=== PATIENT | male | born 1960 | race Caucasian/White ===

== ENCOUNTER 2020-07-10 14:12 | Outpatient (REF) | payer BC, OTHER, SELFPAY ==
[2020-07-10 14:44] LABS: MANUAL DIFF FLAG NO
[2020-07-10 15:00] LABS: Basophils Percent Auto 0.9 % (0-2); Eosinophils Absolute Auto 0.1 X10*3/uL (0.0-0.4); Eosinophils Percent Auto 2.2 % (0-4); Hematocrit 39.8 % (42-52); Hemoglobin 12.7 g/dl (14.0-18.0); Imm Gran Abs Auto 0.02 X10*3/uL (0.00-0.03); Imm Gran Pct Auto 0.4 % (0.0-0.4); Immature Retic Fraction 14.1 % (2.3-13.4); Lymphocytes Absolute Auto 1.4 X10*3/uL (1.2-4.9); Lymphocytes Percent Auto 31.4 % (20-40); Mean Corpuscular HGB Conc 31.9 g/dl (31.0-36.0); Mean Corpuscular Volume 84.7 fL (80-98); Mean Platelet Volume 9.5 fL (9.4-12.4); Monocytes Absolute Auto 0.6 X10*3/uL (0.1-1.2); Monocytes Percent Auto 12.6 % (2-11); Neutrophils Absolute Auto 2.4 X10*3/uL (2.0-8.3); Neutrophils Percent Auto 52.5 % (45-73); Platelet Count 238 X10*3/uL (160-400); Red Cell Distribution Width 14.8 % (11.0-16.0); Retic HGB Equivalent 33.1 pg (30.0-35.0); Reticulocyte Percent 1.4 % (0.5-1.8); Reticulocytes Absolute 0.065 X10*6/uL (0.026-0.095); White Blood Count 4.5 X10*3/uL (4.8-10.8)
[2020-07-10 15:22] LABS: Alanine Aminotransferase 18 U/L (0-40); Albumin Level 4.6 g/dL (3.5-5.0); Alkaline Phosphatase 58 U/L (39-117); Anion Gap 12 (12-20); Aspartate Amino Transferase 29 U/L (5-37); Bilirubin Total 0.7 mg/dL (0.0-1.0); Blood Urea Nitrogen 8 mg/dL (9-16); Calcium 9.5 mg/dL (8.4-10.2); Carbon Dioxide 27 mmol/L (22-29); Chloride 101 mmol/L (96-108); Estimated Glomerular Filt Rate > 60; Glucose Random 112 mg/dL (60-115); Iron 37 mcg/dL (45-160); Percent Iron Saturation 10 % (15-50); Potassium 4.6 mmol/l (3.3-5.1); Sodium 135 mmol/L (135-145); Total Iron Binding Capacity 381 mcg/dL (228-428); Total Protein 8.1 g/dL (6.5-8.0); Unsaturated Iron Binding 344 ug/dL
[2020-07-10 15:49] LABS: Ferritin 18 ng/mL (20-250)
[2020-07-10 15:55] LABS: Folate 6.3 ng/mL (> or = 4.0); Vitamin B12 438 pg/mL (200-900)
[2020-07-12 18:32] LABS: Haptoglobin 206 mg/dL (43-212)
== END 2020-07-10 14:13 | disposition home or self-care (01) ==
LOC: HO.BBR 14:12
PROVIDERS: PCP Internal Medicine; Visit Provider Internal Medicine
DX: E83.110 Hereditary hemochromatosis (principal)
CPT/HCPCS: 36415; 80053; 82607; 82728; 82746; 83010; 83540; 85025; 85045; 99195

== ENCOUNTER → 2020-11-22 12:44 | Outpatient (BNVA) | payer BC, OTHER, SELFPAY | PROVIDERS: PCP Internal Medicine; Visit Provider Physician Assistant ==

== ENCOUNTER 2020-11-29 11:08 | Outpatient (REF) | payer BC, OTHER, SELFPAY ==
--- NOTE | ~2020-11-29 | XR_ITS ---
EXAMINATION: XR FINGER, LEFT CLINICAL INFORMATION: Injury and pain left fourth finger COMPARISON: None TECHNIQUE: Three views of the left fourth finger. FINDINGS: Bone alignment is normal. No fracture or dislocation is seen. There may be soft tissue swelling adjacent to the PIP joint. There is arthritis at the first MCP and CHCF joints with small osteophytes. XR/XR finger LT min 2V IMPRESSION: No fracture is seen.
== END 2020-11-29 11:09 | disposition home or self-care (01) ==
LOC: HO.XRAY 11:08
PROVIDERS: PCP Nurse Practitioner Family; Visit Provider Nurse Practitioner Family
DX: S69.92XA Unspecified injury of left wrist, hand and finger(s), initial encounter (principal)
CPT/HCPCS: 73140

== ENCOUNTER 2020-12-17 14:00 | Outpatient (REF) | payer BC, OTHER, SELFPAY | END 2020-12-17 14:01 | disposition home or self-care (01) | LOC: HO.BBR 14:00 | PROVIDERS: Visit Provider Internal Medicine | DX: Z13.89 Encounter for screening for other disorder (principal) ==

== ENCOUNTER 2021-01-24 11:05 | Outpatient (REF) | payer BC, OTHER, SELFPAY ==
[2021-01-24 11:31] LABS: Hematocrit 37.9 % (42-52); Hemoglobin 12.2 g/dl (14.0-18.0); Mean Corpuscular HGB Conc 32.2 g/dl (31.0-36.0); Mean Corpuscular Hemoglobin 25.8 pg (27.0-33.0); Mean Corpuscular Volume 80.3 fL (80-98); Mean Platelet Volume 9.2 fL (9.4-12.4); Platelet Count 256 X10*3/uL (160-400); Red Blood Count 4.72 X10*6/uL (4.60-5.80); Red Cell Distribution Width 16.9 % (11.0-16.0)
[2021-01-24 12:09] LABS: Alanine Aminotransferase 30 U/L (0-40); Albumin Level 4.6 g/dL (3.5-5.0); Alkaline Phosphatase 64 U/L (39-117); Aspartate Amino Transferase 44 U/L (5-37); Bilirubin Direct 0.3 mg/dL (0.0-0.5); Bilirubin Total 0.7 mg/dL (0.0-1.0); Iron 34 mcg/dL (45-160); Percent Iron Saturation 9 % (15-50); Total Iron Binding Capacity 379 mcg/dL (228-428); Total Protein 7.8 g/dL (6.5-8.0); Unsaturated Iron Binding 345 ug/dL
[2021-01-24 13:41] LABS: Ferritin 17 ng/mL (20-250)
== END 2021-01-24 11:06 | disposition home or self-care (01) ==
LOC: HO.LABR 11:05
PROVIDERS: PCP Internal Medicine; Visit Provider Internal Medicine
DX: E83.110 Hereditary hemochromatosis (principal)
CPT/HCPCS: 36415; 80076; 82728; 83540; 85027

== ENCOUNTER 2021-02-22 11:03 | Outpatient (REF) | payer BC, OTHER, SELFPAY ==
--- NOTE | ~2021-02-22 | US_ITS ---
EXAMINATION: US VENOUS ULTRASOUND WITH DOPPLER LOWER EXTREMITY, RIGHT CLINICAL INFORMATION: Right leg swelling and edema, chronic COMPARISON: None TECHNIQUE: Ultrasound of the deep veins is performed from the hip to the calf with compression sonography and color and pulse Doppler assessment. Spectral analysis with color-flow imaging is performed. FINDINGS: There is normal venous compression and respiratory variation and augmented flow. The visualized common femoral vein, superficial femoral vein, profunda femoral vein, popliteal vein, and the trifurcation region shows no evidence of deep venous thrombosis. There is no significant popliteal fossa cyst. US/US venous duplex LE RT IMPRESSION: No DVT demonstrated in the right lower extremity.
== END 2021-02-22 11:04 | disposition home or self-care (01) ==
LOC: HO.HMGCX 11:03
PROVIDERS: PCP Internal Medicine; Visit Provider Hospitalist
DX: R60.0 Localized edema (principal)
CPT/HCPCS: 93971

== ENCOUNTER → 2021-03-12 14:36 | Outpatient (BNVA) | payer BC, OTHER, SELFPAY | PROVIDERS: PCP Internal Medicine; Visit Provider Surgery Vascular Surgery ==

== ENCOUNTER 2021-03-20 13:00 | Outpatient (REF) | payer BC, OTHER, SELFPAY ==
--- NOTE | ~2021-03-20 | US_ITS ---
EXAMINATION: RIGHT and LEFT LOWER EXTREMITY VENOUS ULTRASOUND (Reflux Exam) CLINICAL INDICATION: Right leg pain and varicose veins. COMPARISON: None. TECHNIQUE: Color flow triplex imaging and compression Doppler was performed to evaluate both the deep and the superficial systems bilaterally. To evaluate the superficial system, the examination was performed in the upright position. Color-flow Doppler ultrasound and compression ultrasound were utilized. In addition, maneuvers were utilized to demonstrate reflux. FINDINGS: 1. DEEP VENOUS ULTRASOUND OF THE RIGHT LOWER EXTREMITY: Respiratory variation, normal compression and augmented flow are noted in the right common femoral vein as well as the right popliteal vein and there is no evidence of deep venous thrombosis at these locations. There is right common femoral vein deep venous reflux measuring 0.9 seconds. There is no evidence of reflux in the deep system in either the mid femoral vein or the popliteal vein. There is no evidence of a Griffin's cyst. 2. SUPERFICIAL ULTRASOUND WITH DOPPLER OF RIGHT LOWER EXTREMITY: The right great saphenous vein at the saphenofemoral junction measures 4 mm, at the mid thigh 3 mm, [id number] 3 mm, qpcvl-jbo-ortl 2 mm, at mid calf 2 mm and at the ankle measures 3 mm. There is no reflux demonstrated in the right great saphenous vein. The right small saphenous vein measures 1-2 mm and shows no reflux. There are 3 small perforators seen in the thigh and calf measuring 2 to 3 mm that do not demonstrate reflux. 3. DEEP VENOUS ULTRASOUND OF THE LEFT LOWER EXTREMITY: Respiratory variation, normal compression and augmented flow are noted in the left common femoral vein as well as the left popliteal vein and there is no evidence of deep venous thrombosis at these locations. There is no evidence of reflux in the deep system in either the common femoral vein or the popliteal vein. . There is no evidence of a Griffin's cyst. 4. SUPERFICIAL ULTRASOUND WITH DOPPLER OF LEFT LOWER EXTREMITY: Left great saphenous vein at the saphenofemoral junction measures 5 mm, at the mid thigh 1 mm, misdq-wcx-brvf 2 mm, kuggn-dyd-wwwz 3 mm, at mid calf 3 mm and at the ankle measures 3 mm. There is no reflux demonstrated in the left great saphenous vein. The left small saphenous vein measures 1-2 mm and shows no reflux. There is a senior care manager in the mid calf that measures 2 mm and does not demonstrate reflux. The left SFA is occluded. There is reconstitution of the left popliteal artery via collateral vessel. US/US venous duplex LE BI IMPRESSION: 1. Right common femoral vein reflux measuring 0.9 seconds. No other evidence of deep venous reflux or DVT seen 2. The saphenous systems are competent bilaterally. 3. Left SFA occlusion.
== END 2021-03-20 13:01 | disposition home or self-care (01) ==
LOC: HO.US 13:00
PROVIDERS: Visit Provider Surgery Vascular Surgery
DX: I83.893 Varicose veins of bilateral lower extremities with other complications (principal); I83.11 Varicose veins of right lower extremity with inflammation
CPT/HCPCS: 93970

== ENCOUNTER → 2021-03-26 15:00 | Outpatient (BNVA) | payer BC, OTHER, SELFPAY | PROVIDERS: PCP Internal Medicine; Visit Provider Surgery Vascular Surgery ==

== ENCOUNTER 2021-04-16 14:28 | Outpatient (REF) | payer BC, OTHER, SELFPAY ==
--- NOTE | ~2021-04-16 | US_ITS ---
EXAMINATION: NONINVASIVE ASSESSMENT OF THE ARTERIES OF BOTH LOWER EXTREMITIES WITH PVR EXAM AND BILATERAL LOWER EXTREMITY DUPLEX Hardeep Villeda MD CLINICAL INFORMATION: Peripheral arterial disease TECHNIQUE: Ankle pulse volume recordings, ankle pressure measurements and ankle brachial indices were obtained of the lower extremity arterial system bilaterally in addition to duplex Doppler techniques with wave form analysis and measurement of velocities in the common femoral, profunda femoral, superficial femoral, popliteal and tibial arteries. The study was performed only at rest. COMPARISON: None FINDINGS: AT REST: Brachial artery pressures 151 Right Le. The right ankle-brachial index is: 1.21 * >0.97-1.25 = normal - no significant arterial disease * 0.75-0.96 = mild peripheral arterial disease * 0.5-0.74 = moderate peripheral arterial disease * <0.50 = severe peripheral arterial disease 2. Right ankle pressure: 127 posterior tibial, 183 dorsalis pedis 3. Right ankle PVR waveform: normal. 4. Right direct duplex Doppler findings. Velocities in cm/sec and phasicity as well as the presence of plaque are reported below. Common Femoral: 170 Profunda Femoris: 114 Proximal SFA: 1:15 Mid SFA: 121 Distal SFA: 168 Popliteal: 71 Tibial: 95 Left Le. The left ankle-brachial index is: 0.90 * >0.97-1.25 = normal - no significant arterial disease * 0.75-0.96 = mild peripheral arterial disease * 0.5-0.74 = moderate peripheral arterial disease * <0.50 = severe peripheral arterial disease 2. Left ankle pressure: 136 posterior tibial, 124 dorsalis pedis 3. Left ankle PVR waveform: Mildly blunted 4. Left direct duplex Doppler findings. Velocities in cm/sec and phasicity as well as the presence of plaque are reported below. Common Femoral: 92 Profunda Femoris: 101 Proximal SFA: Occluded Mid SFA: 67 Distal SFA: 25 Popliteal: 29 Tibial: 16 US/US arterial duplex LE BI IMPRESSION: Right leg: There is no evidence of any hemodynamically significant lower extremity arterial disease by pressure, waveform or duplex Doppler criteria at rest. Left leg: The proximal SFA is occluded with reconstitution of the SFA distally via collaterals. Monophasic flow is noted below this level.
== END 2021-04-16 14:29 | disposition home or self-care (01) ==
LOC: HO.US 14:28
PROVIDERS: Visit Provider Surgery Vascular Surgery
DX: I70.213 Atherosclerosis of native arteries of extremities with intermittent claudication, bilateral legs (principal)
CPT/HCPCS: 93925

== ENCOUNTER 2021-04-19 13:42 | Emergency (ER) | payer BC, OTHER, SELFPAY ==
--- NOTE | 2021-04-19 16:05 | ED.GENADULT ---
HPI - General Adult General Stated complaint: swollen elbow Time Seen by Provider: 04/19/21 15:32 Related Data Home Medications Medication Instructions Recorded Confirmed alclometasone 0.05 % topical cream applic TOPICAL 08/06/20 02/22/21 amlodipine 10 mg tablet 10 mg PO DAILY 08/06/20 02/22/21 calcipotriene 0.005 % topical cream 1 applic TOPICAL BID-TID 08/06/20 02/22/21 ipratropium 0.5 mg-albuterol 3 mg ml INHALATION Q6H 08/06/20 02/22/21 (2.5 mg base)/3 mL nebulization soln ipratropium 20 mcg-albuterol 100 1 puff INHALATION .4 TIMES A DAY 08/06/20 02/22/21 mcg/actuation mist for inhalation PRN g Previous Rx's Medication Instructions Recorded Symbicort 160 mcg-4.5 2 puff INHALATION BID 30 Days 08/08/20 mcg/actuation HFA aerosol inhaler #30.6 g NS sildenafil 100 mg tablet 100 mg PO DAILY PRN #5 cap 10/04/20 bisacodyl 5 mg tablet,delayed 10 mg PO ONCE 1 Days #2 tab 11/22/20 release cyclobenzaprine 10 mg tablet 10 mg PO BEDTIME PRN 30 Days #30 11/29/20 tab ibuprofen 800 mg tablet 800 mg PO Q8H PRN 15 Days #30 tab 11/29/20 pantoprazole 40 mg tablet,delayed 40 mg PO DAILY #90 tab 12/11/20 release Allergies Allergy/AdvReac Type Severity Reaction Status Date / Time nabumetone Allergy Unknown green Verified 03/26/21 15:01 stools PMFSH Past Medical History Medical History Arthritis COPD (chronic obstructive pulmonary disease) ETOH abuse Finger injury GERD (gastroesophageal reflux disease) HTN (hypertension) Polycythemia vera Smoker Surgical History History of esophagogastroduodenoscopy History of foot surgery History of lipoma History of removal of cyst History of skin graft Hx of colonoscopy Family History Family History Father Diabetes Stroke Hypertension Mother Chronic mental illness Family/Other FH: mental illness Social History Social History Household Members: Spouse Are you a primary intensive care ambulance paramedic to a significant other at home: No Do you presently have visiting nurse or other home services: No Alcohol intake: current Alcohol intake frequency: 3 or more drinks per day Alcohol type: beer Cigarette Packs Per Day: 1 Cigarettes Per Day: 20.0 Years Smoked: 40 Current occupational status: employed Current occupation: [employer] Course Course Course Narrative: 15:33pm - 60-year-old male presenting to the ED with multiple complaints Discharge Plan Discharge Prescriptions: No Action budesonide-formoterol [Symbicort] 160-4.5 mcg/actuation HFA aerosol inhaler 2 puff inhalation BID 30 Days Qty: 30.6 RF: 3 pantoprazole 40 mg tablet,delayed release (DR/EC) 40 mg PO DAILY Qty: 90 RF: 3 sildenafil 100 mg tablet 100 mg PO DAILY PRN (Reason: sexual activity) Qty: 5 RF: 1 ibuprofen 800 mg tablet 800 mg PO Q8H PRN (Reason: pain) 15 Days Qty: 30 RF: 0 cyclobenzaprine 10 mg tablet 10 mg PO BEDTIME PRN (Reason: muscle spasm) 30 Days Qty: 30 RF: 0 amlodipine 10 mg tablet 10 mg PO DAILY RF: 0 ipratropium-albuterol 0.5 mg-3 mg(2.5 mg base)/3 mL solution for nebulization inhalation Q6H RF: 0 alclometasone 0.05 % cream topical RF: 0 calcipotriene 0.005 % cream 1 applic topical BID-TID RF: 0 Combivent Respimat 20-100 mcg/actuation mist 1 puff inhalation .4 TIMES A DAY PRN (Reason: shortness of breath or wheezing) RF: 0 bisacodyl [Dulcolax (bisacodyl)] 5 mg tablet,delayed release (DR/EC) 10 mg PO ONCE 1 Days Qty: 2 RF: 0
== END 2021-04-19 17:42 | disposition left against medical advice (07) ==
PROVIDERS: Emergency Provider Emergency Medicine; PCP Internal Medicine
DX: M25.429 Effusion, unspecified elbow (principal)

== ENCOUNTER → 2021-04-23 15:27 | Outpatient (BNVA) | payer BC, OTHER, SELFPAY | PROVIDERS: PCP Internal Medicine; Visit Provider Surgery Vascular Surgery ==

== ENCOUNTER 2021-05-24 11:26 | Outpatient (REF) | payer BC, OTHER, SELFPAY ==
[2021-05-24 11:55] LABS: MANUAL DIFF FLAG NO
[2021-05-24 11:59] LABS: Basophils Percent Auto 0.8 % (0-2); Eosinophils Percent Auto 0.8 % (0-4); Hemoglobin 12.8 g/dl (14.0-18.0); Imm Gran Abs Auto 0.02 X10*3/uL (0.00-0.03); Imm Gran Pct Auto 0.4 % (0.0-0.4); Lymphocytes Absolute Auto 1.2 X10*3/uL (1.2-4.9); Mean Corpuscular HGB Conc 32.8 g/dl (31.0-36.0); Mean Corpuscular Hemoglobin 26.8 pg (27.0-33.0); Mean Corpuscular Volume 81.8 fL (80-98); Mean Platelet Volume 9.6 fL (9.4-12.4); Monocytes Absolute Auto 0.7 X10*3/uL (0.1-1.2); Monocytes Percent Auto 13.7 % (2-11); Neutrophils Absolute Auto 3.1 X10*3/uL (2.0-8.3); Neutrophils Percent Auto 60.3 % (45-73); Platelet Count 236 X10*3/uL (160-400); Red Blood Count 4.77 X10*6/uL (4.60-5.80); Red Cell Distribution Width 16.4 % (11.0-16.0); White Blood Count 5.1 X10*3/uL (4.8-10.8)
[2021-05-24 12:27] LABS: Alanine Aminotransferase 27 U/L (0-40); Albumin Level 4.7 g/dL (3.5-5.0); Alkaline Phosphatase 70 U/L (39-117); Anion Gap 13 (12-20); Aspartate Amino Transferase 43 U/L (5-37); Bilirubin Total 0.7 mg/dL (0.0-1.0); Blood Urea Nitrogen 6 mg/dL (9-16); Calcium 10.4 mg/dL (8.4-10.2); Carbon Dioxide 27 mmol/L (22-29); Chloride 104 mmol/L (96-108); Estimated Glomerular Filt Rate > 60; Glucose Fasting 111 mg/dL (60-99); Potassium 5.1 mmol/L (3.3-5.1); Sodium 139 mmol/L (135-145); Total Protein 8.5 g/dL (6.5-8.0)
[2021-05-24 12:28] LABS: Alanine Aminotransferase 27 U/L (0-40); Albumin Level 4.6 g/dL (3.5-5.0); Alkaline Phosphatase 71 U/L (39-117); Aspartate Amino Transferase 43 U/L (5-37); Bilirubin Direct 0.3 mg/dL (0.0-0.5); Bilirubin Total 0.7 mg/dL (0.0-1.0); Iron 33 mcg/dL (45-160); Percent Iron Saturation 9 % (15-50); Total Iron Binding Capacity 379 mcg/dL (228-428); Total Protein 8.4 g/dL (6.5-8.0); Unsaturated Iron Binding 346 ug/dL
[2021-05-24 12:41] LABS: Ferritin 28 ng/mL (20-250)
== END 2021-05-24 11:27 | disposition home or self-care (01) ==
LOC: HO.BBR 11:26
PROVIDERS: PCP Internal Medicine; Referring Provider Internal Medicine; Visit Provider Physician Assistant
DX: E83.110 Hereditary hemochromatosis (principal); E80.1 Porphyria cutanea tarda
CPT/HCPCS: 36415; 80053; 80076; 82248; 82728; 83540; 85025

== ENCOUNTER 2021-07-23 06:50 | Emergency (ER) | payer BC, OTHER, SELFPAY ==
--- NOTE | ~2021-07-23 | XR_ITS ---
EXAMINATION: XR CHEST CLINICAL INFORMATION: There syncope COMPARISON: Previous chest x-ray most recent September 2019 TECHNIQUE: Frontal view of the chest was obtained. FINDINGS: The cardiac and mediastinal contours are stable. The lungs are well inflated. The lungs are clear. There is no pleural effusion or pneumothorax. There are degenerative changes of the spine. XR/XR chest 1V IMPRESSION: No evidence for acute disease in the chest.
[2021-07-23 06:57] VITALS: BMI 25.8
[2021-07-23 07:00] VITALS: BP 98/63; PULSE 60; RESP 15; TEMP 36.6; O2SAT 97
[2021-07-23 07:07] VITALS: BP 116/70; PULSE 70; O2SAT 98
--- NOTE | 2021-07-23 07:28 | ECG_ITS ---
Test Reason : DIZZINESS Blood Pressure : / mmHG Vent. Rate : 059 BPM Atrial Rate : 059 BPM P-R Int : 196 ms QRS Dur : 096 ms QT Int : 426 ms P-R-T Axes : 076 084 051 degrees QTc Int : 421 ms Sinus bradycardia Otherwise normal ECG Heart rate has decreased Referred By: Juancho Gustafson Electronically Signed By:CASSIDY RASCON MD
--- NOTE | 2021-07-23 07:38 | ED.GENADULT ---
HPI - General Adult General Chief complaint: Dizziness Stated complaint: near syncope Time Seen by Provider: 07/23/21 07:28 Source: patient, family (Spouse) and EMS Mode of arrival: EMS Limitations: no limitations History of Present Illness HPI narrative: 60 years old male came in for evaluation of near-syncope this morning. This is a 60-year-old male with history of COPD and hypertension patient woke up this morning getting ready to go to work patient smoked a cigarette on empty stomach, shortly after the noticed that the patient is incoherent, diaphoretic, looked pale. Patient remembers that he got lightheaded and felt his going to pass out but he never did, patient's symptoms started about 1 hour before arrival and lasted for about 30 minutes, no chest pain, no shortness of breath. Patient had similar symptoms in the past few years ago, seek medical attention in emergency department without knowing the etiology of patient's symptoms. No chest pain, no shortness of breath, no weakness, or numbness. Related Data Home Medications Medication Instructions Recorded Confirmed alclometasone 0.05 % topical cream applic TOPICAL 08/06/20 02/22/21 calcipotriene 0.005 % topical cream 1 applic TOPICAL BID-TID 08/06/20 02/22/21 ipratropium 0.5 mg-albuterol 3 mg ml INHALATION Q6H 08/06/20 02/22/21 (2.5 mg base)/3 mL nebulization soln ipratropium 20 mcg-albuterol 100 1 puff INHALATION .4 TIMES A DAY 08/06/20 02/22/21 mcg/actuation mist for inhalation PRN g (Combivent Respimat) Previous Rx's Medication Instructions Recorded Symbicort 160 mcg-4.5 2 puff INHALATION BID 30 Days 08/08/20 mcg/actuation HFA aerosol inhaler #30.6 g NS (budesonide-formoterol) sildenafil 100 mg tablet 100 mg PO DAILY PRN #5 cap 10/04/20 bisacodyl 5 mg tablet,delayed 10 mg PO ONCE 1 Days #2 tab 11/22/20 release (Dulcolax (bisacodyl)) cyclobenzaprine 10 mg tablet 10 mg PO BEDTIME PRN 30 Days #30 11/29/20 tab ibuprofen 800 mg tablet 800 mg PO Q8H PRN 15 Days #30 tab 11/29/20 pantoprazole 40 mg tablet,delayed 40 mg PO DAILY #90 tab 12/11/20 release amlodipine 10 mg tablet 10 mg PO DAILY 90 Days #90 tab 05/07/21 Allergies Allergy/AdvReac Type Severity Reaction Status Date / Time nabumetone Allergy Unknown green Verified 04/23/21 15:23 stools Review of Systems Review of Systems: All other systems are reviewed and are negative Constitutional: Reports as per HPI and Reports no additional constitutional complaints Eyes: Reports as per HPI and Reports no additional eye complaints Reports system reviewed and no additional complaints, except as documented Cardiovascular: Reports as per HPI and Reports no additional cardiovascular complaints Respiratory: Reports as per HPI and Reports no additional respiratory complaints Gastrointestinal: Reports as per HPI and Reports no additional gastrointestinal complaints Genitourinary: Reports no additional female genitourinary complaints Musculoskeletal: Reports no additional musculoskeletal complaints Skin/Breast: Reports system reviewed and no additional complaints, except as docu Psychiatric: Reports no additional psychiatric complaints Endocrine: Reports no additional endocrine complaints Hematologic/Lymphatic: Reports no additional hematologic/lymphatic complaints Allergic/Immunologic: Reports no additional allergic/immunologic complaints Reports system reviewed and no additional complaints, except as documented and Reports Abnormal speech present PMFSH Past Medical History Medical History Arthritis COPD (chronic obstructive pulmonary disease) ETOH abuse Finger injury GERD (gastroesophageal reflux disease) HTN (hypertension) Polycythemia vera Smoker Surgical History History of esophagogastroduodenoscopy History of foot surgery History of lipoma History of removal of cyst History of skin graft Hx of colonoscopy Family History Family History Father Diabetes Stroke Hypertension Mother Chronic mental illness Family/Other FH: mental illness Social History Social History Household Members: Spouse Are you a primary home child care provider to a significant other at home: No Do you presently have visiting nurse or other home services: No Alcohol intake: current Alcohol intake frequency: 3 or more drinks per day Alcohol type: beer Patient Tobacco Use Status: Current everyday Tobacco user Cigarette Packs Per Day: 1 Cigarettes Per Day: 20.0 Years Smoked: 40 Advance Directives: Yes Advance Directives Information Provided: Yes Advance Directives on File: No Current occupational status: employed 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 Blood pressure normal. Heart rate normal. Respiration rate normal. Temperature normal. Oxygen saturation normal. Appearance: Alert. Oriented X3. No acute distress. Head: Normal external exam. Normocephalic. Atraumatic. No Lozano signs noted. No raccoon eyes noted Eyes: PERRLA. EOMI. Conjunctiva and sclera normal. Eyelids normal. ENT: TM's Normal. Pharynx normal. Uvula midline. Moist mucous membranes. No trismus noted. No drooling noted. No muffled voice noted. Neck: Normal inspection. Neck supple. FROM. No adenopathy. Thyroid Normal. No meningeal signs. No neck mass noted. CVS: Normal heart rate and rhythm. Heart sound normal. No murmurs noted. Pulses normal throughout. Respiratory: No respiratory distress. Painless inspiration. Breath sounds normal. No wheezes/rales/rhonchi noted. Chest nontender. No accessory muscle usage noted or decreased air movement noted. Abdomen: Soft and nontender. Bowel sounds normal in all 4 quadrants. No distention noted. No organomegaly noted. No visible injury noted. Back: No CVA tenderness. Full range of motion noted. Skin: Skin warm and dry. Normal skin color. Normal skin turgor. No rashes/lesions/lacerations noted. Extremities: No lower extremity edema. Extremities exhibit normal range of motion. Extremities nontender. Neuro: Oriented X 3. Cranial nerve exam: II-XII are grossly intact No motor deficit. No sensory deficit. Reflexes normal. Course Course Course Narrative: Assessment and plan. 60-year-old male came in after having episode of near syncope and diaphoresis after smoking a cigarette on empty stomach in the morning, patient declined any syncopal episode, no chest pain, alcohol level was slightly elevated to but patient declined drinking alcohol in the morning. Patient now is asymptomatic observed in the emergency department for few hours with negative troponin x2. Patient was instructed to try to stop smoking. Medical Decision Making Medical Records Medical records reviewed: Yes I reviewed the patient's medical records. Lab Data Lab results reviewed: Yes I reviewed the patient's lab results. Result diagrams: 07/23/21 07:36 07/23/21 07:36 Labs: Lab Results 07/23/21 07/23/21 07/23/21 Range/Units 07:36 07:36 07:36 WBC 5.3 (4.8-10.8) X10*3/uL RBC 4.39 L (4.60-5.80) X10*6/uL Hgb 11.9 L (14.0-18.0) g/dl Hct 36.6 L (42-52) % MCV 83.4 (80-98) fL MCH 27.1 (27.0-33.0) pg MCHC 32.5 (31.0-36.0) g/dl RDW 16.2 H (11.0-16.0) % Plt Count 229 (160-400) X10*3/uL MPV 9.7 (9.4-12.4) fL Immature Gran % (Auto) 0.2 (0.0-0.4) % Neut % (Auto) 66.2 (45-73) % Lymph % (Auto) 21.0 (20-40) % Ballard % (Auto) 8.6 (2-11) % Eos % (Auto) 3.2 (0-4) % Baso % (Auto) 0.8 (0-2) % Lymph # (Auto) 1.1 L (1.2-4.9) X10*3/uL Ballard # (Auto) 0.5 (0.1-1.2) X10*3/uL Eos # (Auto) 0.2 (0.0-0.4) X10*3/uL Baso # (Auto) 0.0 (0.0-0.2) X10*3/uL Abs Immat Gran (auto) 0.01 (0.00-0.03) X10*3/uL Absolute Neuts (auto) 3.5 (2.0-8.3) X10*3/uL Absolute Nucleated RBC 0.000 (0.0-0.012) X10*3/uL Nucleated RBC % (auto) 0.0 (0.0-0.2) /100WBC Sodium 137 (135-145) mmol/L Potassium 4.1 (3.3-5.1) mmol/L Chloride 107 (96-108) mmol/L Carbon Dioxide 18 L (22-29) mmol/L Anion Gap 16 (12-20) BUN 5 L (9-16) mg/dL Creatinine 0.74 (0.5-1.4) mg/dL Estim Creat Clear Calc 110.9 Estimated GFR > 60 Random Glucose 88 (60-115) mg/dL Calcium 9.3 D (8.4-10.2) mg/dL Total Bilirubin 0.5 (0.0-1.0) mg/dL Direct Bilirubin < 0.2 (0.0-0.5) mg/dL AST 31 (5-37) U/L ALT 14 (0-40) U/L Alkaline Phosphatase 63 (39-117) U/L Troponin I High Sens < 3.5 (<3.5-35.0) ng/L B-Natriuretic Peptide (<100) pg/mL Total Protein 7.7 (6.5-8.0) g/dL Albumin 4.1 (3.5-5.0) g/dL Lipase 37 (8-78) U/L Urine Color Urine Appearance Urine pH (5.0-8.0) Ur Specific [place] (1.005-1.025) Urine Protein (NEG-TRACE) MG/DL Urine Glucose (UA) (NEG) MG/DL Urine Ketones (NEG) MG/DL Urine Blood (NEG) Urine Nitrite (NEG) Ur Leukocyte Esterase (NEG) COVID-19 (EMILE) (Negative) COVID-19 Clin Com 07/23/21 07/23/21 07/23/21 Range/Units 07:36 07:36 08:44 WBC (4.8-10.8) X10*3/uL RBC (4.60-5.80) X10*6/uL Hgb (14.0-18.0) g/dl Hct (42-52) % MCV (80-98) fL MCH (27.0-33.0) pg MCHC (31.0-36.0) g/dl RDW (11.0-16.0) % Plt Count (160-400) X10*3/uL MPV (9.4-12.4) fL Immature Gran % (Auto) (0.0-0.4) % Neut % (Auto) (45-73) % Lymph % (Auto) (20-40) % Ballard % (Auto) (2-11) % Eos % (Auto) (0-4) % Baso % (Auto) (0-2) % Lymph # (Auto) (1.2-4.9) X10*3/uL Ballard # (Auto) (0.1-1.2) X10*3/uL Eos # (Auto) (0.0-0.4) X10*3/uL Baso # (Auto) (0.0-0.2) X10*3/uL Abs Immat Gran (auto) (0.00-0.03) X10*3/uL Absolute Neuts (auto) (2.0-8.3) X10*3/uL Absolute Nucleated RBC (0.0-0.012) X10*3/uL Nucleated RBC % (auto) (0.0-0.2) /100WBC Sodium (135-145) mmol/L Potassium (3.3-5.1) mmol/L Chloride (96-108) mmol/L Carbon Dioxide (22-29) mmol/L Anion Gap (12-20) BUN (9-16) mg/dL Creatinine (0.5-1.4) mg/dL Estim Creat Clear Calc Estimated GFR Random Glucose (60-115) mg/dL Calcium (8.4-10.2) mg/dL Total Bilirubin (0.0-1.0) mg/dL Direct Bilirubin (0.0-0.5) mg/dL AST (5-37) U/L ALT (0-40) U/L Alkaline Phosphatase (39-117) U/L Troponin I High Sens (<3.5-35.0) ng/L B-Natriuretic Peptide 36 (<100) pg/mL Total Protein (6.5-8.0) g/dL Albumin (3.5-5.0) g/dL Lipase (8-78) U/L Urine Color YELLOW Urine Appearance CLEAR Urine pH 6.0 (5.0-8.0) Ur Specific [place] <= 1.005 (1.005-1.025) Urine Protein NEG (NEG-TRACE) MG/DL Urine Glucose (UA) NEG (NEG) MG/DL Urine Ketones NEG (NEG) MG/DL Urine Blood NEG (NEG) Urine Nitrite NEG (NEG) Ur Leukocyte Esterase NEG (NEG) COVID-19 (EMILE) Negative (Negative) COVID-19 Clin Com See Note 07/23/21 Range/Units 11:11 WBC (4.8-10.8) X10*3/uL RBC (4.60-5.80) X10*6/uL Hgb (14.0-18.0) g/dl Hct (42-52) % MCV (80-98) fL MCH (27.0-33.0) pg MCHC (31.0-36.0) g/dl RDW (11.0-16.0) % Plt Count (160-400) X10*3/uL MPV (9.4-12.4) fL Immature Gran % (Auto) (0.0-0.4) % Neut % (Auto) (45-73) % Lymph % (Auto) (20-40) % Ballard % (Auto) (2-11) % Eos % (Auto) (0-4) % Baso % (Auto) (0-2) % Lymph # (Auto) (1.2-4.9) X10*3/uL [place] # (Auto) (0.1-1.2) X10*3/uL Eos # (Auto) (0.0-0.4) X10*3/uL Baso # (Auto) (0.0-0.2) X10*3/uL Abs Immat Gran (auto) (0.00-0.03) X10*3/uL Absolute Neuts (auto) (2.0-8.3) X10*3/uL Absolute Nucleated RBC (0.0-0.012) X10*3/uL Nucleated RBC % (auto) (0.0-0.2) /100WBC Sodium (135-145) mmol/L Potassium (3.3-5.1) mmol/L Chloride (96-108) mmol/L Carbon Dioxide (22-29) mmol/L Anion Gap (12-20) BUN (9-16) mg/dL Creatinine (0.5-1.4) mg/dL Estim Creat Clear Calc Estimated GFR Random Glucose (60-115) mg/dL Calcium (8.4-10.2) mg/dL Total Bilirubin (0.0-1.0) mg/dL Direct Bilirubin (0.0-0.5) mg/dL AST (5-37) U/L ALT (0-40) U/L Alkaline Phosphatase (39-117) U/L Troponin I High Sens < 3.5 (<3.5-35.0) ng/L B-Natriuretic Peptide (<100) pg/mL Total Protein (6.5-8.0) g/dL Albumin (3.5-5.0) g/dL Lipase (8-78) U/L Urine Color Urine Appearance Urine pH (5.0-8.0) Ur Specific [place] (1.005-1.025) Urine Protein (NEG-TRACE) MG/DL Urine Glucose (UA) (NEG) MG/DL Urine Ketones (NEG) MG/DL Urine Blood (NEG) Urine Nitrite (NEG) Ur Leukocyte Esterase (NEG) COVID-19 (EMILE) (Negative) COVID-19 Clin Com Imaging Data Chest x-ray: Radiologist's impression: No evidence for acute disease in the chest ECG Data Interpretation: Normal sinus rhythm at 60 beats per minutes, normal intervals, no ST-T changes. Discharge Plan Discharge Clinical Impression: Near syncope, Needs smoking cessation education Patient Disposition: Home, Self-Care Instructions: Near Syncope (ED) Prescriptions: No Action budesonide-formoterol [Symbicort] 160-4.5 mcg/actuation HFA aerosol inhaler 2 puff inhalation BID 30 Days Qty: 30.6 RF: 3 pantoprazole 40 mg tablet,delayed release (DR/EC) 40 mg PO DAILY Qty: 90 RF: 3 amlodipine 10 mg tablet 10 mg PO DAILY 90 Days Qty: 90 RF: 3 sildenafil 100 mg tablet 100 mg PO DAILY PRN (Reason: sexual activity) Qty: 5 RF: 1 ibuprofen 800 mg tablet 800 mg PO Q8H PRN (Reason: pain) 15 Days Qty: 30 RF: 0 cyclobenzaprine 10 mg tablet 10 mg PO BEDTIME PRN (Reason: muscle spasm) 30 Days Qty: 30 RF: 0 ipratropium-albuterol 0.5 mg-3 mg(2.5 mg base)/3 mL solution for nebulization inhalation Q6H RF: 0 alclometasone 0.05 % cream topical RF: 0 calcipotriene 0.005 % cream 1 applic topical BID-TID RF: 0 Combivent Respimat 20-100 mcg/actuation mist 1 puff inhalation .4 TIMES A DAY PRN (Reason: shortness of breath or wheezing) RF: 0 bisacodyl [Dulcolax (bisacodyl)] 5 mg tablet,delayed release (DR/EC) 10 mg PO ONCE 1 Days Qty: 2 RF: 0 Referrals: Goldie Watkins MD [Primary Care Provider] - 2 days Stand Alone Forms: Work/School Release
[2021-07-23] MEDS: 0.9 % Sodium Chloride 1,000 ML 999 ML IVCONT (07:40)
[2021-07-23 07:44] LABS: MANUAL DIFF FLAG NO
[2021-07-23 07:46] LABS: Basophils Percent Auto 0.8 % (0-2); Eosinophils Absolute Auto 0.2 X10*3/uL (0.0-0.4); Eosinophils Percent Auto 3.2 % (0-4); Hematocrit 36.6 % (42-52); Hemoglobin 11.9 g/dl (14.0-18.0); Imm Gran Abs Auto 0.01 X10*3/uL (0.00-0.03); Imm Gran Pct Auto 0.2 % (0.0-0.4); Lymphocytes Absolute Auto 1.1 X10*3/uL (1.2-4.9); Mean Corpuscular HGB Conc 32.5 g/dl (31.0-36.0); Mean Corpuscular Hemoglobin 27.1 pg (27.0-33.0); Mean Corpuscular Volume 83.4 fL (80-98); Mean Platelet Volume 9.7 fL (9.4-12.4); Monocytes Absolute Auto 0.5 X10*3/uL (0.1-1.2); Monocytes Percent Auto 8.6 % (2-11); Neutrophils Absolute Auto 3.5 X10*3/uL (2.0-8.3); Neutrophils Percent Auto 66.2 % (45-73); Platelet Count 229 X10*3/uL (160-400); Red Blood Count 4.39 X10*6/uL (4.60-5.80); Red Cell Distribution Width 16.2 % (11.0-16.0); White Blood Count 5.3 X10*3/uL (4.8-10.8)
[2021-07-23 08:05] LABS: COVID-19 Test Negative (Negative)
[2021-07-23 08:20] LABS: B Type Natriuretic Peptide 36 pg/mL (<100); Troponin-I High Sensitivity < 3.5 ng/L (<3.5-35.0)
[2021-07-23 08:25] LABS: Alanine Aminotransferase 14 U/L (0-40); Albumin Level 4.1 g/dL (3.5-5.0); Alkaline Phosphatase 63 U/L (39-117); Anion Gap 16 (12-20); Aspartate Amino Transferase 31 U/L (5-37); Bilirubin Direct < 0.2 mg/dL (0.0-0.5); Bilirubin Total 0.5 mg/dL (0.0-1.0); Blood Urea Nitrogen 5 mg/dL (9-16); Calcium 9.3 mg/dL (8.4-10.2); Carbon Dioxide 18 mmol/L (22-29); Chloride 107 mmol/L (96-108); Creatinine Clr Calc Pharmacy 110.9; Estimated Glomerular Filt Rate > 60; Glucose Random 88 mg/dL (60-115); Lipase 37 U/L (8-78); Potassium 4.1 mmol/L (3.3-5.1); Sodium 137 mmol/L (135-145); Total Protein 7.7 g/dL (6.5-8.0)
[2021-07-23 08:52] LABS: Appearance Urine CLEAR; Color Urine YELLOW; Glucose Urine UA NEG (NEG); Leukocyte Esterase Urine NEG (NEG); Nitrite Urine NEG (NEG); Specific Gravity - Urine <= 1.005 (1.005-1.025); Urine Blood NEG (NEG); Urine Ketones NEG (NEG); Urine Protein NEG (NEG-TRACE)
[2021-07-23 09:26] VITALS: BP 107/63; BP 117/62; BP 99/73; PULSE 64; PULSE 68; PULSE 80
[2021-07-23 11:14] VITALS: BP 105/67; PULSE 70; RESP 15; O2SAT 95
[2021-07-23 11:48] LABS: Troponin-I High Sensitivity < 3.5 ng/L (<3.5-35.0)
== END 2021-07-23 12:24 | disposition home or self-care (01) ==
PROVIDERS: Emergency Provider Emergency Medicine; PCP Internal Medicine
DX: R55 Syncope and collapse (principal); I10 Essential (primary) hypertension; F17.210 Nicotine dependence, cigarettes, uncomplicated; Z20.822 Contact with and (suspected) exposure to COVID-19
CPT/HCPCS: 36415; 71045; 80048; 80076; 81003; 83690; 83880; 84484; 85025; 87635; 93005; 96360; 99284; 99285

== ENCOUNTER 2021-08-25 11:19 | Emergency (ER) | payer BC, OTHER, SELFPAY ==
--- NOTE | ~2021-08-25 | XR_ITS ---
EXAMINATION: XR CHEST CLINICAL INFORMATION: Cough. COMPARISON: Chest 07/23/2021 TECHNIQUE: 2 views of the chest were obtained. FINDINGS: The lungs are hyperinflated but clear. The heart size and pulmonary vascularity is normal. There is mild spondylosis of dorsal spine. No lytic process. XR/XR chest 2V IMPRESSION: Hyperinflated lungs without any acute process.
[2021-08-25 11:44] VITALS: BP 123/74; PULSE 94; RESP 18; TEMP 36.9; O2SAT 95; BMI 25.1
[2021-08-25 12:51] LABS: Influenza A PCR NEGATIVE (Negative); Influenza B PCR NEGATIVE (Negative); Resp Syncy Virus RNA Qual PCR NEGATIVE (Negative); SARS COV2 PCR INHOUSE NEGATIVE (Negative)
--- NOTE | 2021-08-25 14:47 | ED_ITS ---
HPI - URI/Sore Throat General Chief Complaint: Upper Respiratory Symptoms Stated Complaint: diff breathing Time Seen by Provider: 08/25/21 14:47 Source: patient Mode of arrival: ambulatory Limitations: no limitations History of Present Illness HPI Narrative: 60-year-old male past medical history significant for hype rtension, COPD, PAD presents to the emergency department with complaints of productive cough, shortness of breath, fevers, malaise and sore throat X2 days. Patient tells me he gets bronchitis every year. He tells me that this cough is very uncomfortable, and is keeping him up at night. He also reports a temperature of a 103? F at home. He tells me he feels fatigued. And he reports burning with swallowing. Patient smokes 1 pack of cigarettes per day. He is vaccinated against COVID-19. He denies chest pain, nausea, vomiting, abdominal pain, weakness, headache, dizziness, recent sick contacts. MD elicited complaint: fever, cough and sore throat Pertinent past history: COPD and other (bronchitis ) Onset (ago): day(s) (2) Consistency: constant Severity: severe Pain scale (0-10): 10 Able to tolerate fluids by mouth: Yes Exacerbating factors: nothing Relieving factors: nothing Associated symptoms: fever, chills, myalgias, sore throat and cough Treatments prior to arrival: none Related Data Home Medications Medication Instructions Recorded Confirmed alclometasone 0.05 % topical cream applic TOPICAL 08/06/20 07/25/21 calcipotriene 0.005 % topical cream 1 applic TOPICAL BID-TID 08/06/20 07/25/21 ipratropium 0.5 mg-albuterol 3 mg ml INHALATION Q6H 08/06/20 07/25/21 (2.5 mg base)/3 mL nebulization soln ipratropium 20 mcg-albuterol 100 1 puff INHALATION .4 TIMES A DAY 08/06/20 07/25/21 mcg/actuation mist for inhalation PRN g (Combivent Respimat) Previous Rx's Medication Instructions Recorded sildenafil 100 mg tablet 100 mg PO DAILY PRN #5 cap 10/04/20 bisacodyl 5 mg tablet,delayed 10 mg PO ONCE 1 Days #2 tab 11/22/20 release (Dulcolax (bisacodyl)) ibuprofen 800 mg tablet 800 mg PO Q8H PRN 15 Days #30 tab 11/29/20 pantoprazole 40 mg tablet,delayed 40 mg PO DAILY #90 tab 12/11/20 release Symbicort 160 mcg-4.5 2 puff INHALATION BID 30 Days 08/09/21 mcg/actuation HFA aerosol inhaler #30.6 g NS (budesonide-formoterol) azithromycin 250 mg tablet See Rx Instructions PO .COMPLEX #6 08/25/21 tab benzonatate 100 mg capsule 100 mg PO BID PRN #20 cap 08/25/21 prednisone 20 mg tablet 40 mg PO DAILY 5 Days #10 tab 08/25/21 Allergies Allergy/AdvReac Type Severity Reaction Status Date / Time nabumetone Allergy Unknown green Verified 07/25/21 16:28 stools Review of Systems Review of Systems: Constitutional : No Weight loss, + Fever, + Chills, + Fatigue, No+ Malaise, + diaphoresis ENT/Mouth : No sore throat, No Rhinorrhea Eyes: No Eye Pain, No Swelling, No Redness Cardiovascular : No Chest Pain, + SOB, + Dyspnea on Exertion, No Orthopnea, No Edema, No Palpitations Respiratory : + Cough, + Sputum, No Wheezing Gastrointestinal : No Nausea, No Vomiting, No Diarrhea, No Constipation, No abdominal Pain, No Hematochezia, No Melena Genitourinary : No Dysuria, No Urinary Frequency, No Hematuria, Musculoskeletal : No joint pain, No Myalgias, No Joint Swelling Skin : No Skin Lesions, No rash Neuro : No Weakness, No Numbness, No Dizziness, No Headache All other systems reviewed and are negative [facility] Past Medical History Attestation statement: The following information was validated with the patient. Source: old records reviewed and nursing notes reviewed Medical History Arthritis COPD (chronic obstructive pulmonary disease) ETOH abuse Finger injury GERD (gastroesophageal reflux disease) HTN (hypertension) Hypotension Polycythemia vera Smoker Surgical History History of esophagogastroduodenoscopy History of foot surgery History of lipoma History of removal of cyst History of skin graft Hx of colonoscopy Family History Family History Father Diabetes Stroke Hypertension Mother Chronic mental illness Family/Other FH: mental illness Social History Social History Household Members: Spouse Housing: House Are you a primary healthcare corporate account director to a significant other at home: No Do you presently have visiting nurse or other home services: No Alcohol intake: current Alcohol intake frequency: 3 or more drinks per day Alcohol type: beer Patient Tobacco Use Status: Current everyday Tobacco user Cigarette Packs Per Day: 1 Cigarettes Per Day: 20.0 Years Smoked: 40 e-Cigarette/Vaping Use: Never Used Second Hand Smoke Exposure: No Advance Directives: Yes Advance Directives Information Provided: Yes Advance Directives on File: No service: No Current occupational status: employed 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 Appearance: Alert.? Oriented X3.? No acute distress.?+ diaphoresis Head: Normocephalic, atraumatic, no step-offs or deformities Eyes: Pupils equal, round and reactive to light.? ENT: + white patches to posterior pharynx Normal appearing tonsils. Bilateral TM and EC normal. No pain with manipulation of external ear. Neck: Normal inspection.? Neck supple.? No LAD CVS: Rapid rate normal rythem.? Pulses normal.? Respiratory: No respiratory distress.? + Diminished breath sounds + wheezing to bilateral lung de anda. Abdomen: Soft and nontender.? Skin: Skin warm and dry.? Normal skin color.? Normal skin turgor.? Extremities: No lower extremity edema.? No calf ttp. 5/5 strength to bilateral upper and lower extremities Back: No midline tenderness, no C-spine tenderness, full range of motion, no CVA tenderness bilaterally Neuro: Oriented X 3.? No motor deficit.? No sensory deficit. Course Reevaluation(s) Reevaluation #1: Flu/COVID/RSV negative, strep throat negative, labs show no leukocytosis, baseline normocephalic anemia is noted, no acute electrolyte abnormalities. Lactic acid within normal limits. Negative D-dimer. Low suspicion for PE at this time. X-ray shows hyperinflated lungs without any acute process. At this time patient's likely diagnosis is bacterial bronchitis. Patient will be discharged home on azithromycin, prednisone, and he will be advised to continue to use his inhaler/nebulizers as needed for shortness of breath. He has been given strict return precautions such as chest pain, shortness of breath, fevers, chills, nausea, vomiting, headache, dizziness. MDM - URI/Sore Throat MDM Narrative Medical decision making narrative: 1504 60-year-old male past medical history significant for hypertension, PE AD, COPD presents to the emergency department with 2 days of progressively worsening productive cough, shortness of breath, fevers T-max 100.9? F, malaise. Upon physical examination patient appears diaphoretic, vital signs significant for tachycardia, tachypnea, fever. S1-S2 appreciated free of murmurs, rapid regular rhythm is noted. Bilateral lung sounds diminished, wheezing appreciated throughout. Abdomen soft nontender nondistended. Posterior pharynx with white patches, tonsils normal size, no exudates. Bilateral tympanic membranes pearly white with normal landmarks. No lymphadenopathy. No focal neuro deficits. Plan- basic labs, cultures, lactic, bnp, mag, d-dimer, ekg, CXR, flu/covid/rsv At this time infection is suspected. Emperic antibiotics will be ordered at this time as well as fluids cultures and a lactic. Medical Records Attestation: I reviewed the patient's medical records. Lab Data Attestation: I reviewed the patient's lab results. Result diagrams: 08/25/21 15:28 08/25/21 15:28 Labs: Lab Results 08/25/21 08/25/21 08/25/21 Range/Units 11:51 15:20 15:28 WBC 9.4 (4.8-10.8) X10*3/uL RBC 4.19 L (4.60-5.80) X10*6/uL Hgb 11.6 L (14.0-18.0) g/dl Hct 35.3 L (42.0-52.0) % MCV 84.2 (80.0-98.0) fL MCH 27.7 (27.0-33.0) pg MCHC 32.9 (31.0-36.0) g/dl RDW 16.0 (11.0-16.0) % Plt Count 245 (160-400) X10*3/uL MPV 8.8 L (9.4-12.4) fL Immature Gran % (Auto) 0.4 (0.0-0.4) % Neut % (Auto) 83.4 H (45-73) % Lymph % (Auto) 6.6 L (20-40) % Brewster % (Auto) 9.2 (2-11) % Eos % (Auto) 0.1 (0-4) % Baso % (Auto) 0.3 (0-2) % Lymph # (Auto) 0.6 L (1.2-4.9) X10*3/uL Brewster # (Auto) 0.9 (0.1-1.2) X10*3/uL Eos # (Auto) 0.0 (0.0-0.4) X10*3/uL Baso # (Auto) 0.0 (0.0-0.2) X10*3/uL Abs Immat Gran (auto) 0.04 H (0.00-0.03) X10*3/uL Absolute Neuts (auto) 7.8 (2.0-8.3) x10*3/uL Absolute Nucleated RBC 0.000 (0.0-0.012) X10*3/uL Nucleated RBC % (auto) 0.0 (0.0-0.2) /100WBC D-Dimer High Sensitivty NG/ML Sodium (135-145) mmol/L Potassium (3.3-5.1) mmol/L Chloride (96-108) mmol/L Carbon Dioxide (22-29) mmol/L Anion Gap (12-20) BUN (9-16) mg/dL Creatinine (0.5-1.4) mg/dL Estim Creat Clear Calc Estimated GFR Random Glucose (60-115) mg/dL Lactic Acid (0.5-2.0) mmol/L Calcium (8.4-10.2) mg/dL Magnesium (1.6-2.6) mg/dL Total Bilirubin (0.0-1.0) mg/dL AST (5-37) U/L ALT (0-40) U/L Alkaline Phosphatase (39-117) U/L B-Natriuretic Peptide (<100) pg/mL Total Protein (6.5-8.0) g/dL Albumin (3.5-5.0) g/dL Influenza Type A (PCR) NEGATIVE (Negative) Influenza Type B (PCR) NEGATIVE (Negative) RSV RNA Qual (PCR) NEGATIVE (Negative) SARS-CoV-2 RNA (RT-PCR) NEGATIVE (Negative) S. pyogenes GrpA PARI Negative (Negative) 08/25/21 08/25/21 08/25/21 Range/Units 15:28 15:28 15:28 WBC (4.8-10.8) X10*3/uL RBC (4.60-5.80) X10*6/uL Hgb (14.0-18.0) g/dl Hct (42.0-52.0) % MCV (80.0-98.0) fL MCH (27.0-33.0) pg MCHC (31.0-36.0) g/dl RDW (11.0-16.0) % Plt Count (160-400) X10*3/uL MPV (9.4-12.4) fL Immature Gran % (Auto) (0.0-0.4) % Neut % (Auto) (45-73) % Lymph % (Auto) (20-40) % Brewster % (Auto) (2-11) % Eos % (Auto) (0-4) % Baso % (Auto) (0-2) % Lymph # (Auto) (1.2-4.9) X10*3/uL Brewster # (Auto) (0.1-1.2) X10*3/uL Eos # (Auto) (0.0-0.4) X10*3/uL Baso # (Auto) (0.0-0.2) X10*3/uL Abs Immat Gran (auto) (0.00-0.03) X10*3/uL Absolute Neuts (auto) (2.0-8.3) x10*3/uL Absolute Nucleated RBC (0.0-0.012) X10*3/uL Nucleated RBC % (auto) (0.0-0.2) /100WBC D-Dimer High Sensitivty 171 NG/ML Sodium 132 L (135-145) mmol/L Potassium 4.2 (3.3-5.1) mmol/L Chloride 97 (96-108) mmol/L Carbon Dioxide 20 L (22-29) mmol/L Anion Gap 19 (12-20) BUN 5 L (9-16) mg/dL Creatinine 0.76 (0.5-1.4) mg/dL Estim Creat Clear Calc 108.0 Estimated GFR > 60 Random Glucose 135 H D (60-115) mg/dL Lactic Acid 1.2 (0.5-2.0) mmol/L Calcium 9.2 (8.4-10.2) mg/dL Magnesium 1.7 (1.6-2.6) mg/dL Total Bilirubin 0.9 (0.0-1.0) mg/dL AST 30 (5-37) U/L ALT 22 (0-40) U/L Alkaline Phosphatase 91 D (39-117) U/L B-Natriuretic Peptide (<100) pg/mL Total Protein 7.4 (6.5-8.0) g/dL Albumin 4.2 (3.5-5.0) g/dL Influenza Type A (PCR) (Negative) Influenza Type B (PCR) (Negative) RSV RNA Qual (PCR) (Negative) SARS-CoV-2 RNA (RT-PCR) (Negative) S. pyogenes GrpA PARI (Negative) 08/25/21 Range/Units 15:29 WBC (4.8-10.8) X10*3/uL RBC (4.60-5.80) X10*6/uL Hgb (14.0-18.0) g/dl Hct (42.0-52.0) % MCV (80.0-98.0) fL MCH (27.0-33.0) pg MCHC (31.0-36.0) g/dl RDW (11.0-16.0) % Plt Count (160-400) X10*3/uL MPV (9.4-12.4) fL Immature Gran % (Auto) (0.0-0.4) % Neut % (Auto) (45-73) % Lymph % (Auto) (20-40) % Brewster % (Auto) (2-11) % Eos % (Auto) (0-4) % Baso % (Auto) (0-2) % Lymph # (Auto) (1.2-4.9) X10*3/uL Brewster # (Auto) (0.1-1.2) X10*3/uL Eos # (Auto) (0.0-0.4) X10*3/uL Baso # (Auto) (0.0-0.2) X10*3/uL Abs Immat Gran (auto) (0.00-0.03) X10*3/uL Absolute Neuts (auto) (2.0-8.3) x10*3/uL Absolute Nucleated RBC (0.0-0.012) X10*3/uL Nucleated RBC % (auto) (0.0-0.2) /100WBC D-Dimer High Sensitivty NG/ML Sodium (135-145) mmol/L Potassium (3.3-5.1) mmol/L Chloride (96-108) mmol/L Carbon Dioxide (22-29) mmol/L Anion Gap (12-20) BUN (9-16) mg/dL Creatinine (0.5-1.4) mg/dL Estim Creat Clear Calc Estimated GFR Random Glucose (60-115) mg/dL Lactic Acid (0.5-2.0) mmol/L Calcium (8.4-10.2) mg/dL Magnesium (1.6-2.6) mg/dL Total Bilirubin (0.0-1.0) mg/dL AST (5-37) U/L ALT (0-40) U/L Alkaline Phosphatase (39-117) U/L B-Natriuretic Peptide 81 (<100) pg/mL Total Protein (6.5-8.0) g/dL Albumin (3.5-5.0) g/dL Influenza Type A (PCR) (Negative) Influenza Type B (PCR) (Negative) RSV RNA Qual (PCR) (Negative) SARS-CoV-2 RNA (RT-PCR) (Negative) S. pyogenes GrpA PARI (Negative) Imaging Data Chest x-ray: Attestation: I personally reviewed and interpreted this imaging study as follows: Radiologist's impression: FINDINGS: The lungs are hyperinflated but clear. The heart size and pulmonary vascularity is normal. There is mild spondylosis of dorsal spine. No lytic process. XR/XR chest 2V IMPRESSION: Hyperinflated lungs without any acute process. ECG Data Attestation: I personally reviewed and interpreted this ECG as follows: ECG interpretation date: 08/25/21 ECG interpretation time: 15:59 Prior ECG tracings: available for review Interpretation: Ventricular rate of 101, MO normal, QRS normal QT/QTC normal. EKG shows sinus tachycardia no ST elevations or inversions no acute ischemia. No significant changes when compared to EKG from July 23, 2021. Critical Care Time Critical Care Time Critical Care Time: No Discharge Plan Discharge Clinical Impression: Upper respiratory infection, Bronchitis Patient Disposition: Home, Self-Care Instructions: Upper Respiratory Infection (ED), Acute Bronchitis (ED) Additional Instructions: Take your medications as prescribed. If you were prescribed antibiotics today, it is important that you take your medication to their entirety, do not skip any doses, do not finish them early. Try and stop smoking, smoking can make this much worse. Use your inhaler/nebulizer as needed Drink plenty of fluids Follow-up with your primary care provider this week. Return to the emergency department with new or worsening symptoms. In case of emergency call 911 Prescriptions: New prednisone 20 mg tablet 40 mg PO DAILY 5 Days Qty: 10 RF: 0 azithromycin 250 mg tablet See Rx Instructions PO .COMPLEX Qty: 6 RF: 0 benzonatate 100 mg capsule 100 mg PO BID PRN (Reason: cough) Qty: 20 RF: 0 No Action pantoprazole 40 mg tablet,delayed release (DR/EC) 40 mg PO DAILY Qty: 90 RF: 3 budesonide-formoterol [Symbicort] 160-4.5 mcg/actuation HFA aerosol inhaler 2 puff inhalation BID 30 Days Qty: 30.6 RF: 3 sildenafil 100 mg tablet 100 mg PO DAILY PRN (Reason: sexual activity) Qty: 5 RF: 1 ibuprofen 800 mg tablet 800 mg PO Q8H PRN (Reason: pain) 15 Days Qty: 30 RF: 0 ipratropium-albuterol 0.5 mg-3 mg(2.5 mg base)/3 mL solution for nebulization inhalation Q6H RF: 0 alclometasone 0.05 % cream topical RF: 0 calcipotriene 0.005 % cream 1 applic topical BID-TID RF: 0 Combivent Respimat 20-100 mcg/actuation mist 1 puff inhalation .4 TIMES A DAY PRN (Reason: shortness of breath or wheezing) RF: 0 bisacodyl [Dulcolax (bisacodyl)] 5 mg tablet,delayed release (DR/EC) 10 mg PO ONCE 1 Days Qty: 2 RF: 0 Referrals: Goldie Watkins MD [Primary Care Provider] - 2 days Stand Alone Forms: Work/School Release
[2021-08-25 15:03] VITALS: BP 141/71; PULSE 107; RESP 22; TEMP 38.3; O2SAT 95
--- NOTE | 2021-08-25 15:16 | ECG_ITS ---
Test Reason : SOB FEVER Blood Pressure : / mmHG Vent. Rate : 101 BPM Atrial Rate : 101 BPM P-R Int : 166 ms QRS Dur : 096 ms QT Int : 356 ms P-R-T Axes : 081 087 065 degrees QTc Int : 461 ms Sinus tachycardia Otherwise normal ECG When compared with ECG of 23-JUL-2021 07:42, Vent. rate has increased BY 42 BPM Referred By: Ekta Arnold Electronically Signed By:CASSIDY RASCON MD
[2021-08-25] MEDS: Acetaminophen 325 MG TABLET 650 MG PO (15:17)
[2021-08-25] MEDS: Albuterol/Iprat 2.5/0.5MG 3 ML AMPUL.NEB INHALE (15:35)
[2021-08-25 15:36] VITALS: PULSE 94; O2SAT 97
[2021-08-25 15:36] LABS: Basophils Percent Auto 0.3 % (0-2); Eosinophils Percent Auto 0.1 % (0-4); Hematocrit 35.3 % (42.0-52.0); Hemoglobin 11.6 g/dl (14.0-18.0); Imm Gran Abs Auto 0.04 X10*3/uL (0.00-0.03); Imm Gran Pct Auto 0.4 % (0.0-0.4); Lymphocytes Absolute Auto 0.6 X10*3/uL (1.2-4.9); Lymphocytes Percent Auto 6.6 % (20-40); MANUAL DIFF FLAG NO; Mean Corpuscular HGB Conc 32.9 g/dl (31.0-36.0); Mean Corpuscular Hemoglobin 27.7 pg (27.0-33.0); Mean Corpuscular Volume 84.2 fL (80.0-98.0); Mean Platelet Volume 8.8 fL (9.4-12.4); Monocytes Absolute Auto 0.9 X10*3/uL (0.1-1.2); Monocytes Percent Auto 9.2 % (2-11); Neutrophils Absolute Auto 7.8 x10*3/uL (2.0-8.3); Neutrophils Percent Auto 83.4 % (45-73); Platelet Count 245 X10*3/uL (160-400); Red Blood Count 4.19 X10*6/uL (4.60-5.80); White Blood Count 9.4 X10*3/uL (4.8-10.8)
[2021-08-25 15:45] LABS: D Dimer High Sensitivity 171 NG/ML
[2021-08-25 15:50] LABS: Lactic Acid 1.2 mmol/L (0.5-2.0)
[2021-08-25] MEDS: 0.9 % Sodium Chloride 1,000 ML 999 ML IV (15:51)
[2021-08-25] MEDS: cefTRIAXone sodium 1 GM in 0.9 % Sodium Chloride 50 ML IV (15:51)
[2021-08-25 15:53] LABS: IDNOW Serial# 9DD0AD1C; Strep A Nucleic Acid Negative (Negative)
[2021-08-25 15:57] LABS: Alanine Aminotransferase 22 U/L (0-40); Albumin Level 4.2 g/dL (3.5-5.0); Alkaline Phosphatase 91 U/L (39-117); Anion Gap 19 (12-20); Aspartate Amino Transferase 30 U/L (5-37); Bilirubin Total 0.9 mg/dL (0.0-1.0); Blood Urea Nitrogen 5 mg/dL (9-16); Calcium 9.2 mg/dL (8.4-10.2); Carbon Dioxide 20 mmol/L (22-29); Chloride 97 mmol/L (96-108); Estimated Glomerular Filt Rate > 60; Glucose Random 135 mg/dL (60-115); Magnesium 1.7 mg/dL (1.6-2.6); Potassium 4.2 mmol/L (3.3-5.1); Sodium 132 mmol/L (135-145); Total Protein 7.4 g/dL (6.5-8.0)
[2021-08-25 15:58] LABS: B Type Natriuretic Peptide 81 pg/mL (<100)
[2021-08-25 16:32] VITALS: RESP 18
== END 2021-08-25 16:48 | disposition home or self-care (01) ==
PROVIDERS: Physician Assistant; Emergency Provider Emergency Medicine; PCP Internal Medicine
DX: J06.9 Acute upper respiratory infection, unspecified (principal); J40 Bronchitis, not specified as acute or chronic; Z20.822 Contact with and (suspected) exposure to COVID-19; R06.02 Shortness of breath; R50.9 Fever, unspecified; R53.81 Other malaise; I10 Essential (primary) hypertension
CPT/HCPCS: 0241U; 36415; 71046; 80053; 83605; 83735; 83880; 85025; 85379; 87040; 87651; 93005; 94640; 96361; 96374; 99284; J0696

== ENCOUNTER 2021-09-16 08:28 | Emergency (ER) | payer BC, OTHER, SELFPAY ==
--- NOTE | 2021-09-16 | ECG_ITS ---
Test Reason : chest pain Blood Pressure : / mmHG Vent. Rate : 076 BPM Atrial Rate : 076 BPM P-R Int : 168 ms QRS Dur : 096 ms QT Int : 386 ms P-R-T Axes : 083 093 052 degrees QTc Int : 434 ms Normal sinus rhythm Rightward axis Borderline ECG When compared with ECG of 25-AUG-2021 15:59, No significant change was found Referred By: Generic ED Physician Electronically Signed By:EPIFANIO CRUZ
--- NOTE | ~2021-09-16 | MR_ITS ---
EXAMINATION: MR BRAIN WITHOUT CONTRAST CLINICAL INFORMATION: Left arm numbness. COMPARISON: None. TECHNIQUE: Multiplanar, multisequence imaging of the brain was performed without contrast. FINDINGS: No diffusion abnormalities are identified to suggest an acute or subacute infarct. The ventricles are normal in size. No mass effect or midline shift is seen. Minimal nonspecific left periventricular white matter signal changes noted with mild generalized parenchymal volume loss. No extra-axial fluid collections are seen. The brainstem and cerebellum are normal. The gradient refocused acquisition is normal. The craniovertebral junction, marrow signal, and midline structures are normal. The major intracranial flow voids at the level of the [place] of [place] are preserved. The dural venous sinus flow voids are maintained. The mastoid air cells are well aerated. There is mild patchy mucosal thickening in the paranasal sinuses. MR/MR head/brain wo con IMPRESSION: No acute intracranial process. Very mild left frontal periventricular white matter signal changes which may be due to chronic microangiopathy.
--- NOTE | ~2021-09-16 | XR_ITS ---
EXAMINATION: XR CHEST CLINICAL INFORMATION: Left arm tingling COMPARISON: Previous chest x-ray most recent July 2021 TECHNIQUE: 2 views of the chest were obtained. FINDINGS: The cardiac and mediastinal contours are stable. The lungs are well inflated. The lungs are clear. There is no pleural effusion or pneumothorax. There are degenerative changes of the spine. XR/XR chest 2V IMPRESSION: Well-inflated lungs. No evidence for acute disease in the chest.
--- NOTE | ~2021-09-16 | CT_ITS ---
EXAMINATION: CT BRAIN AND CT CERVICAL SPINE WITHOUT CONTRAST. CLINICAL INFORMATION: Left arm paresthesias. COMPARISON: CT brain 12/31/2016 TECHNIQUE: 5 mm thin axial and reformatted 2 mm thin sagittal coronal images of brain were obtained without contrast. Subsequently axial 3 mm thin and reformatted 2 mm thin sagittal coronal images of cervical spine were obtained. DLP [id number]. FINDINGS: Brain: There is no acute intra-axial, extra-axial bleed, masses or midline shift. There is no acute infarction evolution. The lateral ventricles are symmetrical in size and configuration without enlargement. There is no edema. The reyes to white matter differentiation is maintained normal. Bone windows reveal no calvarial abnormality. There is no scalp soft tissue abnormality. Bilateral paranasal sinuses and mastoid air cells are well-aerated. Cervical spine: There is mild straightening of cervical lordosis. Grade 1 retrolisthesis C5 over C6 is noted. Rest the vertebral alignment is normal. There is loss of C5-C6 and C6-C7 disc heights with mild ventral and posterior spondylosis. The craniovertebral junction and the C1-C2 alignment is normal. There is no visible acute fracture, dislocation or subluxation seen. There is mild left C2-C3, C3-C4, moderate C4-C5 facet joint arthropathy. There is mild left C5-C6, C4-C5 neural foraminal narrowing from uncovertebral and facet joint hypertrophy. The prevertebral and paravertebral soft tissues are normal. The airway is widely patent. Visualized salivary glands and thyroid lobes are symmetrical. The airway is widely patent. The lung apices are clear. CT/CT cervical spine wo con IMPRESSION: No acute intracranial process seen. There is mild straightening of cervical lordosis with grade 1 retrolisthesis C5 over C6. There are degenerative disc changes and facet joint arthropathy C5-C6 and C6-C7 disc levels. There is underlying spondylosis as well. There is no acute fracture or dislocation of cervical spine.
[2021-09-16 08:48] VITALS: BP 158/80; PULSE 86; RESP 18; TEMP 36.7; O2SAT 99; BMI 25.1
[2021-09-16 09:14] LABS: MANUAL DIFF FLAG NO
[2021-09-16 09:31] LABS: Anion Gap 11 (12-20); Blood Urea Nitrogen 4 mg/dL (9-16); Calcium 9.7 mg/dL (8.4-10.2); Carbon Dioxide 24 mmol/L (22-29); Chloride 104 mmol/L (96-108); Creatinine Clr Calc Pharmacy 109.5; Estimated Glomerular Filt Rate > 60; Glucose Random 94 mg/dL (60-115); Sodium 135 mmol/L (135-145)
[2021-09-16 09:34] LABS: Troponin-I High Sensitivity < 3.5 ng/L (<3.5-35.0)
[2021-09-16 11:21] LABS: Basophils Percent Auto 0.8 % (0-2); Eosinophils Absolute Auto 0.1 X10*3/uL (0.0-0.4); Eosinophils Percent Auto 1.8 % (0-4); Hematocrit 40.8 % (42.0-52.0); Hemoglobin 13.2 g/dl (14.0-18.0); Imm Gran Abs Auto 0.01 X10*3/uL (0.00-0.03); Imm Gran Pct Auto 0.3 % (0.0-0.4); Lymphocytes Absolute Auto 0.9 X10*3/uL (1.2-4.9); Mean Corpuscular HGB Conc 32.4 g/dl (31.0-36.0); Mean Corpuscular Hemoglobin 27.2 pg (27.0-33.0); Mean Corpuscular Volume 84.1 fL (80.0-98.0); Mean Platelet Volume 9.8 fL (9.4-12.4); Monocytes Absolute Auto 0.5 X10*3/uL (0.1-1.2); Monocytes Percent Auto 11.5 % (2-11); Neutrophils Absolute Auto 2.5 x10*3/uL (2.0-8.3); Neutrophils Percent Auto 62.6 % (45-73); Platelet Count 287 X10*3/uL (160-400); Red Blood Count 4.85 X10*6/uL (4.60-5.80); Red Cell Distribution Width 15.7 % (11.0-16.0)
--- NOTE | 2021-09-16 11:46 | ED.NEUROSD ---
HPI - Neuro Symptoms/Deficit General Chief Complaint: General Medical Stated Complaint: tingling l arm Time Seen by Provider: 09/16/21 11:14 Source: patient Mode of arrival: ambulatory Limitations: no limitations History of Present Illness Onset (ago): day(s) (yesterday) Location: left arm (bicep area to forearm in stocking glove pattern) History of same: No Severity: mild Quality: other (pins and needles) Relieving factors: none Exacerbating factors: none Context: sudden onset On Anticoagulants: No Associated symptoms: other (neck pain but cannot state when it started) Treatments Prior to Arrival: none Related Data Home Medications Medication Instructions Recorded Confirmed alclometasone 0.05 % topical cream applic TOPICAL 08/06/20 09/03/21 calcipotriene 0.005 % topical cream 1 applic TOPICAL BID-TID 08/06/20 09/03/21 ipratropium 0.5 mg-albuterol 3 mg ml INHALATION Q6H 08/06/20 09/03/21 (2.5 mg base)/3 mL nebulization soln ipratropium 20 mcg-albuterol 100 1 puff INHALATION .4 TIMES A DAY 08/06/20 09/03/21 mcg/actuation mist for inhalation PRN g (Combivent Respimat) Previous Rx's Medication Instructions Recorded sildenafil 100 mg tablet 100 mg PO DAILY PRN #5 cap 10/04/20 bisacodyl 5 mg tablet,delayed 10 mg PO ONCE 1 Days #2 tab 11/22/20 release (Dulcolax (bisacodyl)) ibuprofen 800 mg tablet 800 mg PO Q8H PRN 15 Days #30 tab 11/29/20 pantoprazole 40 mg tablet,delayed 40 mg PO DAILY #90 tab 12/11/20 release Symbicort 160 mcg-4.5 2 puff INHALATION BID 30 Days 08/09/21 mcg/actuation HFA aerosol inhaler #30.6 g NS (budesonide-formoterol) prednisone 20 mg tablet 40 mg PO DAILY 5 Days #10 tab 08/25/21 benzonatate 100 mg capsule 100 mg PO BID PRN #20 cap 08/28/21 dextromethorphan HBr 15 mg capsule 30 mg PO Q8H PRN 5 Days #35 cap 08/29/21 (Tussin Cough (DM only)) azithromycin 250 mg tablet See Rx Instructions PO .COMPLEX #6 09/03/21 tab hydrocodone 7.5 mg-acetaminophen 15 ml PO Q8H PRN 7 Days #315 ml 09/04/21 325 mg/15 mL oral solution Allergies Allergy/AdvReac Type Severity Reaction Status Date / Time nabumetone Allergy Unknown green Verified 09/03/21 11:55 stools Review of Systems Review of Systems: Constitutional : No Weight loss, No Fever, No Chills, No Fatigue, No Malaise ENT/Mouth : No sore throat, No Rhinorrhea, pos neck pain Eyes: No Eye Pain, No Swelling, No Redness Cardiovascular : No Chest Pain, No SOB, No Dyspnea on Exertion, No Orthopnea, No Edema, No Palpitations Respiratory : No Cough, No Sputum, No Wheezing Gastrointestinal : No Nausea, No Vomiting, No Diarrhea, No Constipation, No abdominal Pain, No Hematochezia, No Melena Genitourinary : No Dysuria, No Urinary Frequency, No Hematuria, Musculoskeletal : No joint pain, No Myalgias, No Joint Swelling Skin : No Skin Lesions, No rash Neuro : No Weakness, pos Numbness, No Dizziness, No Headache Psych : No Anxiety/Panic, No Depression Heme/Lymph: No Bruising, No Bleeding,No Lymphadenopathy Endocrine : No Polyuria, No Polydipsia All other systems reviewed and are negative [facility] Past Medical History Medical History Arthritis Bronchitis COPD (chronic obstructive pulmonary disease) ETOH abuse Finger injury GERD (gastroesophageal reflux disease) HTN (hypertension) Hypotension Polycythemia vera Smoker Surgical History History of esophagogastroduodenoscopy History of foot surgery History of lipoma History of removal of cyst History of skin graft Hx of colonoscopy Family History Family History Father Diabetes Stroke Hypertension Mother Chronic mental illness Family/Other FH: mental illness Social History Social History Household Members: Spouse Housing: House Are you a primary healthcare business analyst to a significant other at home: No Do you presently have visiting nurse or other home services: No Alcohol intake: current Alcohol intake frequency: 3 or more drinks per day Alcohol type: beer Patient Tobacco Use Status: Current everyday Tobacco user Cigarette Packs Per Day: 1 Cigarettes Per Day: 20.0 Years Smoked: 40 e-Cigarette/Vaping Use: Never Used Second Hand Smoke Exposure: No Advance Directives: No Advance Directives Information Provided: Yes service: No Current occupational status: employed 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 Oriented X3. No acute distress. Eyes: Pupils equal, round and reactive to light. ENT: Pharynx normal. Neck: Normal inspection. Neck supple. has some pain with ROM testing but negative spurling's test CVS: Normal heart rate and rhythm. Pulses normal. Respiratory: No respiratory distress. Breath sounds normal. Abdomen: Soft and nontender. Skin: Skin warm and dry. Normal skin color. Normal skin turgor. Extremities: No lower extremity edema. No calf ttp Neuro: Oriented X 3. No motor deficit. reports some tingling in LUE but can feel light touch distal NV intact Course Course Course Narrative: has some disc cervical ds - but CT head negative MRI ordered to r/o stroke RN notes the patient is upset and wants to leave - aware we want MRI for stroke stayed for MRI - signed out to Dr. Brenner MDM - Neuro Symptoms/Deficit MDM Narrative Medical decision making narrative: 60 yo male with hx of PAD< GERD HTN here with L arm parathesias since yesterday at this time labs, CT head/neck could be cervical radiculopathy vs stroke - dispo per results and findings. Lab Data Result diagrams: 09/16/21 09:10 09/16/21 09:10 Labs: Lab Results 09/16/21 09/16/21 09/16/21 Range/Units 09:10 09:10 09:10 WBC 4.0 L (4.8-10.8) X10*3/uL RBC 4.85 (4.60-5.80) X10*6/uL Hgb 13.2 L (14.0-18.0) g/dl Hct 40.8 L (42.0-52.0) % MCV 84.1 (80.0-98.0) fL MCH 27.2 (27.0-33.0) pg MCHC 32.4 (31.0-36.0) g/dl RDW 15.7 (11.0-16.0) % Plt Count 287 (160-400) X10*3/uL MPV 9.8 (9.4-12.4) fL Immature Gran % (Auto) 0.3 (0.0-0.4) % Neut % (Auto) 62.6 (45-73) % Lymph % (Auto) 23.0 (20-40) % Alpine % (Auto) 11.5 H (2-11) % Eos % (Auto) 1.8 (0-4) % Baso % (Auto) 0.8 (0-2) % Lymph # (Auto) 0.9 L (1.2-4.9) X10*3/uL Alpine # (Auto) 0.5 (0.1-1.2) X10*3/uL Eos # (Auto) 0.1 (0.0-0.4) X10*3/uL Baso # (Auto) 0.0 (0.0-0.2) X10*3/uL Abs Immat Gran (auto) 0.01 (0.00-0.03) X10*3/uL Absolute Neuts (auto) 2.5 (2.0-8.3) x10*3/uL Absolute Nucleated RBC 0.000 (0.0-0.012) X10*3/uL Nucleated RBC % (auto) 0.0 (0.0-0.2) /100WBC Sodium 135 (135-145) mmol/L Potassium 4.0 (3.3-5.1) mmol/L Chloride 104 (96-108) mmol/L Carbon Dioxide 24 (22-29) mmol/L Anion Gap 11 L (12-20) BUN 4 L (9-16) mg/dL Creatinine 0.75 (0.5-1.4) mg/dL Estim Creat Clear Calc 109.5 Estimated GFR > 60 Random Glucose 94 (60-115) mg/dL Calcium 9.7 (8.4-10.2) mg/dL Troponin I High Sens < 3.5 (<3.5-35.0) ng/L ECG Data Attestation: I personally reviewed and interpreted this ECG as follows: ECG interpretation date: 09/16/21 ECG interpretation time: 11:54 Interpretation: Rate: 76 Rhythm: NSR E[place]: rightwards Normal P waves. Normal MUNIRA. Normal QRS complex. ST T wave : normal no JENNIFER qTC: normal prior studies: no acute ischemia The study has been interpreted contemporaneously by me. . Discharge Plan Discharge Clinical Impression: Cervical disc disease, Arm paresthesia, left Additional Instructions: return to ED for any worsening symptoms or concerns There is mild straightening of cervical lordosis with grade 1 retrolisthesis C5 over C6. There are degenerative disc changes and facet joint arthropathy C5-C6 and C6-C7 disc levels. There is underlying spondylosis as well. There is no acute fracture or dislocation of cervical spine.? Prescriptions: No Action pantoprazole 40 mg tablet,delayed release (DR/EC) 40 mg PO DAILY Qty: 90 RF: 3 budesonide-formoterol [Symbicort] 160-4.5 mcg/actuation HFA aerosol inhaler 2 puff inhalation BID 30 Days Qty: 30.6 RF: 3 benzonatate 100 mg capsule 100 mg PO BID PRN (Reason: cough) Qty: 20 RF: 0 dextromethorphan HBr [Tussin Cough (DM only)] 15 mg capsule 30 mg PO Q8H PRN (Reason: cough) 5 Days Qty: 35 RF: 0 hydrocodone-acetaminophen 7.5-325 mg/15 mL solution 15 ml PO Q8H PRN (Reason: pain) 7 Days Qty: 315 RF: 0 prednisone 20 mg tablet 40 mg PO DAILY 5 Days Qty: 10 RF: 0 sildenafil 100 mg tablet 100 mg PO DAILY PRN (Reason: sexual activity) Qty: 5 RF: 1 ibuprofen 800 mg tablet 800 mg PO Q8H PRN (Reason: pain) 15 Days Qty: 30 RF: 0 ipratropium-albuterol 0.5 mg-3 mg(2.5 mg base)/3 mL solution for nebulization inhalation Q6H RF: 0 alclometasone 0.05 % cream topical RF: 0 calcipotriene 0.005 % cream 1 applic topical BID-TID RF: 0 Combivent Respimat 20-100 mcg/actuation mist 1 puff inhalation .4 TIMES A DAY PRN (Reason: shortness of breath or wheezing) RF: 0 azithromycin 250 mg tablet See Rx Instructions PO .COMPLEX Qty: 6 RF: 0 bisacodyl [Dulcolax (bisacodyl)] 5 mg tablet,delayed release (DR/EC) 10 mg PO ONCE 1 Days Qty: 2 RF: 0
[2021-09-16 12:00] VITALS: BP 148/76; PULSE 73; RESP 16; TEMP 36.7; O2SAT 96
[2021-09-16 13:00] VITALS: BP 154/81; PULSE 68; RESP 16; TEMP 36.7; O2SAT 96
== END 2021-09-16 17:07 | disposition left against medical advice (07) ==
PROVIDERS: Emergency Provider Emergency Medicine; PCP Internal Medicine
DX: M50.322 Other cervical disc degeneration at C5-C6 level (principal); R20.2 Paresthesia of skin; F17.200 Nicotine dependence, unspecified, uncomplicated
CPT/HCPCS: 36415; 70450; 70551; 71046; 72125; 80048; 84484; 85025; 93005; 99284; 99285

== ENCOUNTER 2022-02-07 09:51 | Outpatient (REF) | payer BC, OTHER, SELFPAY ==
[2022-02-07 10:19] LABS: MANUAL DIFF FLAG NO
[2022-02-07 10:28] LABS: Basophils Percent Auto 0.4 % (0-2); Eosinophils Percent Auto 0.2 % (0-4); Hematocrit 38.4 % (42.0-52.0); Imm Gran Abs Auto 0.03 X10*3/uL (0.00-0.03); Imm Gran Pct Auto 0.5 % (0.0-0.4); Lymphocytes Absolute Auto 0.9 X10*3/uL (1.2-4.9); Lymphocytes Percent Auto 16.8 % (20-40); Mean Corpuscular HGB Conc 33.9 g/dl (31.0-36.0); Mean Corpuscular Hemoglobin 27.9 pg (27.0-33.0); Mean Corpuscular Volume 82.4 fL (80.0-98.0); Mean Platelet Volume 9.8 fL (9.4-12.4); Monocytes Absolute Auto 0.5 X10*3/uL (0.1-1.2); Monocytes Percent Auto 9.1 % (2-11); Platelet Count 280 X10*3/uL (160-400); Red Blood Count 4.66 X10*6/uL (4.60-5.80); Red Cell Distribution Width 15.4 % (11.0-16.0); White Blood Count 5.5 X10*3/uL (4.8-10.8)
[2022-02-07 10:59] LABS: Alanine Aminotransferase 17 U/L (0-40); Albumin Level 4.3 g/dL (3.5-5.0); Alkaline Phosphatase 69 U/L (39-117); Aspartate Amino Transferase 24 U/L (5-37); Bilirubin Direct 0.2 mg/dL (0.0-0.5); Bilirubin Total 0.3 mg/dL (0.0-1.0); Iron 30 mcg/dL (45-160); Percent Iron Saturation 8 % (15-50); Total Iron Binding Capacity 373 mcg/dL (228-428); Total Protein 7.6 g/dL (6.5-8.0); Unsaturated Iron Binding 343 ug/dL
[2022-02-07 11:21] LABS: Ferritin 23 ng/mL (20-250)
[2022-02-07 11:26] LABS: Vitamin B12 330 pg/mL (200-900)
== END 2022-02-07 09:52 | disposition home or self-care (01) ==
LOC: HO.BBR 09:51
PROVIDERS: Visit Provider Internal Medicine
DX: E83.110 Hereditary hemochromatosis (principal)
CPT/HCPCS: 36415; 80076; 82607; 82728; 83540; 85025

== ENCOUNTER 2022-04-07 12:26 | Outpatient (REF) | payer BC, OTHER, SELFPAY ==
--- NOTE | ~2022-04-07 | US_ITS ---
EXAMINATION: Noninvasive assessment of the bilateral lower extremities with ARTERIAL DUPLEX and ANKLE BRACHIAL INDICES (ABIs). ? CLINICAL INFORMATION: Peripheral vascular disease ? TECHNIQUE: Duplex Doppler techniques with waveform analysis and measurement of velocities in the bilateral common femoral, profunda femoris, superficial femoral, popliteal and tibial arteries were performed. Additionally, ankle pulse volume recordings, ankle pressure measurements and ankle brachial indices were obtained of the lower extremity arterial system bilaterally. The study was performed only at rest. ? COMPARISON: 04/16/ ? FINDINGS: ? DIRECT DUPLEX DOPPLER FINDINGS: ? RIGHT LEG: Common femoral artery:?170 cm/s, phasicity: Biphasic Profunda femoris artery:??108 cm/s, phasicity: Triphasic Superficial femoral artery (proximal):?97 cm/s, phasicity: Triphasic Superficial femoral artery (mid):?95 cm/s, phasicity: Triphasic Superficial femoral artery (distal):?76.2 cm/s, phasicity: Triphasic Popliteal artery:?41.6 cm/s, phasicity: Biphasic Posterior tibial artery:?29.1 cm/s, phasicity: Monophasic Peroneal artery:?56.3 cm/s, phasicity: Triphasic ? LEFT LEG: Common femoral artery:?106 cm/s, phasicity: Triphasic Profunda femoris artery:?71.5?cm/s, phasicity: Triphasic Superficial femoral artery (proximal):?Occluded? Superficial femoral artery (mid):?Occluded Superficial femoral artery (distal):?63.6?cm/s, phasicity: Monophasic. Reconstituted flow is seen via a collateral vessel Popliteal artery:?24.3?cm/s, phasicity: Monophasic Posterior tibial artery:?13.4?cm/s, phasicity: Monophasic Peroneal artery:?32.2 cm/s, phasicity: Monophasic ANKLE-BRACHIAL INDEX: ? Right: 0.97? Left: 0.62 ? ANKLE PRESSURES: ? Right: PT 135, DP?142?? Left: PT?91, DP?79?? ? ANKLE PVR WAVEFORMS: ? Right: Abnormal Left: Abnormal? ? Left leg:???Moderately dampened ankle-brachial index with occlusion of the proximal and mid left superficial femoral artery. Reconstituted flow seen in the distal superficial femoral artery, popliteal artery and below-knee runoff vessels with dampened waveforms. This is unchanged compared to the prior exam ? ?? KAI Reference: - >1.4 = calcified vessels - 0.9 - 1.4 = normal - no significant arterial disease - 0.7 - 0.89 = mild peripheral arterial disease - 0.51 - 0.69 = moderate peripheral arterial disease - ? 0.50 = severe peripheral arterial disease - < .30 = critical arterial disease US/US arterial duplex LE BI IMPRESSION: ? Right leg:?Normal ankle brachial index. Pulse volume waveform is dampened. Dampened flow is seen within the right posterior tibial artery with normal flow and waveforms within the other arterial vessels consistent with small vessel disease ?
== END 2022-04-07 12:27 | disposition home or self-care (01) ==
LOC: HO.US 12:26
PROVIDERS: Visit Provider Surgery Vascular Surgery
DX: I73.9 Peripheral vascular disease, unspecified (principal)
CPT/HCPCS: 93925

== ENCOUNTER 2022-05-14 06:03 | Day surgery (SDC) | payer BC, OTHER, SELFPAY ==
[2022-05-14] VITALS (10 sets, daily range): BP systolic 104–127; BP diastolic 59–80; PULSE 62–82; RESP 15–18; TEMP 36.5; O2SAT 93–97; BMI 21.5
[2022-05-14 06:44] LABS: MANUAL DIFF FLAG NO
[2022-05-14 06:49] LABS: Basophils Absolute Auto 0.1 X10*3/uL (0.0-0.2); Eosinophils Absolute Auto 0.2 X10*3/uL (0.0-0.4); Eosinophils Percent Auto 2.9 % (0-4); Hematocrit 39.6 % (42.0-52.0); Hemoglobin 13.2 g/dl (14.0-18.0); Imm Gran Abs Auto 0.02 X10*3/uL (0.00-0.03); Imm Gran Pct Auto 0.3 % (0.0-0.4); Lymphocytes Absolute Auto 1.6 X10*3/uL (1.2-4.9); Lymphocytes Percent Auto 28.2 % (20-40); Mean Corpuscular HGB Conc 33.3 g/dl (31.0-36.0); Mean Corpuscular Hemoglobin 28.8 pg (27.0-33.0); Mean Corpuscular Volume 86.3 fL (80.0-98.0); Mean Platelet Volume 9.2 fL (9.4-12.4); Monocytes Absolute Auto 0.7 X10*3/uL (0.1-1.2); Monocytes Percent Auto 11.2 % (2-11); Neutrophils Absolute Auto 3.3 x10*3/uL (2.0-8.3); Neutrophils Percent Auto 56.4 % (45-73); Platelet Count 244 X10*3/uL (160-400); Red Blood Count 4.59 X10*6/uL (4.60-5.80); Red Cell Distribution Width 15.1 % (11.0-16.0); White Blood Count 5.8 X10*3/uL (4.8-10.8)
[2022-05-14 07:02] LABS: Blood Urea Nitrogen 8 mg/dL (9-16); Creatinine Clr Calc Pharmacy 102.1; Estimated Glomerular Filt Rate > 60
[2022-05-14] MEDS: iohexoL 300 MG/ML 100 ML INFUS..BTL IV (08:57)
--- NOTE | 2022-05-14 09:09 | W.PM.OPN ---
Operative Note Operative Note Date of Service: 05/14/22 Narrative: Angiogram report from [facility] Preoperative diagnosis: Atherosclerosis of left lower extremity with activity limiting claudication Postoperative diagnosis: Same Procedure: 1. Ultrasound-guided right common femoral access 2. Aortogram with left lower extremity runoff Surgeon:Jhony Orr M.D., FACS, RPVI Test Engineering Technician:None Anesthesia: Local with moderate conscious sedation. Total intraservice moderate sedation time was 31 minutes. I monitored the patient's level of consciousness and physiologic status continuously throughout the procedure. Specimens:none Drains:none Estimated blood loss: Less than 10 ml Implant: None Indications: Pleasant 62-year-old gentleman with a history activity limiting claudication. He had undergone noninvasive testing which demonstrated an KAI of 0.62 with SFA occlusion and now presents for intervention. The patient has signed the informed consent after reviewing risks, complications, benefits, and alternatives previously discussed with the patient. The patient was given the opportunity to ask any additional questions or voice any concerns. All questions were answered to the patient's satisfaction. Procedure in detail: Patient was brought to the angiography suite prior to which a time-out was called for patient identification and site verification. Bilateral groins were prepped and draped in the standard surgical fashion. Under ultrasound guidance right common femoral was punctured with micro puncture needle and wire. Subsequently a precision 4 [place] sheath was then placed. Bentson wire was advanced to the level of the aorta. 4 [place] Flush catheter was brought up and parked at the level of the renal arteries. Aortogram was then undertaken. Catheter was brought down to the level of the iliac bifurcation. Iliacs were subsequently imaged. Catheter was then brought in up and over to the left side profundus femoris. Runoff study was then undertaken. Multiple orthogonal views were undertaken. We were unable to cannulate the SFA. Catheter wire sheath was then removed. Direct pressure was held for 10 minutes. Patient tolerated the procedure well. Returned to recovery with stable vitals. Interpretation of films: 1. Ultrasound demonstrates appropriate femoral puncture. Image of which was saved. 2. Aortogram demonstrates appropriate caliber aorta. Minimal disease. Appropriate take-off of the renals. 3. Iliac images demonstrate no significant disease 4. Left Leg Common femoral artery: No significant disease Profundus Femoris: No significant disease Superficial femoral artery: Total occlusion with reconstitution at above knee distal SFA Popliteal artery (p1,p2,p3): Normal Anterior tibial artery: Patent Peroneal artery: Minimal disease but was diminutive Posterior tibial artery: Appears occluded Dorsalis pedis/plantar arch: Incomplete Conclusion: 1. Successful diagnostic angiogram. Should it become clinically warranted may require femoral to above knee popliteal bypass 2. Anticoagulation status: No change This note is constructed using voice recognition software. While every effort has been made to ensure accuracy, pigment weigher errors may have been included. Thank you for allowing me to participate in the care of your patient. Yours sincerely, Jhony Orr MD, FACS, R.P.V.I.
[2022-05-14] MEDS: oxyCODONE HCl Immed Release 5 MG TABLET PO (09:40)
== END 2022-05-14 13:00 | disposition home or self-care (01) ==
PROVIDERS: Visit Provider Surgery Vascular Surgery
DX: I70.212 Atherosclerosis of native arteries of extremities with intermittent claudication, left leg (principal); M79.662 Pain in left lower leg; M19.90 Unspecified osteoarthritis, unspecified site; I10 Essential (primary) hypertension; I95.9 Hypotension, unspecified; D45 Polycythemia vera; R42 Dizziness and giddiness; J44.9 Chronic obstructive pulmonary disease, unspecified; Z88.8 Allergy status to other drugs, medicaments and biological substances; F10.10 Alcohol abuse, uncomplicated; F17.210 Nicotine dependence, cigarettes, uncomplicated
CPT/HCPCS: 36247; 36415; 75630; 76937; 82565; 84520; 85025; 99152; 99153; C1769; C1887; J2250; J3010; Q9967

== ENCOUNTER → 2022-06-03 09:42 | Outpatient (BNVA) | payer BC, OTHER, SELFPAY | PROVIDERS: PCP Internal Medicine; Referring Provider Internal Medicine; Visit Provider Internal Medicine | DX: Z01.810 Encounter for preprocedural cardiovascular examination (principal); I73.9 Peripheral vascular disease, unspecified; I10 Essential (primary) hypertension; F17.200 Nicotine dependence, unspecified, uncomplicated | CPT/HCPCS: 93005 ==

== ENCOUNTER → 2022-06-09 14:51 | Outpatient (REF) | payer BC, OTHER, SELFPAY ==
--- NOTE | 2022-06-09 14:53 | CA_ITS ---
Transthoracic Echocardiogram Patient (Last, First, Middle): Sid Landeros, Gender: Male Date of : 1960 Age: 61 Procedure Date: 06/09/2022 Procedure Type: Transthoracic Echocardiogram Location: OP Height: 177.8 cm Weight: 72.58 kg BSA: 1.90 m2 Heart Rate: bpm BP: 118 / 56 mmHg New Business Clerk: Referring MD: Carlos A Fletcher MD [employer] Clerk: Hilario Fritz MD Symptoms: Z01.810 - Encounter for preprocedural cardiovascular examination Study Quality: Fair ECG Rhythm: Sinus Conclusions: - 1. Normal LV systolic function with grade 1 diastolic dysfunction 2. Normal cardiac valvular Doppler 3. Normal RV systolic pressure 4. No pericardial effusion Findings Left Ventricle Normal left ventricular size, thickness, and systolic function. The visually estimated ejection fraction is between 60-65%. Spectral Doppler is indicative of an impaired relaxation filling pattern. E/E prime ratio is <8, consistent with normal filling pressures. Evidence suggests grade I (mild) diastolic dysfunction. Right Ventricle Normal right ventricular cavity size and systolic function. Atria The left atrium is normal in size. There is lipomatous hypertrophy of the interatrial septum. There is no evidence of interatrial shunt. The right atrium is normal in size. Aortic Valve Normal aortic valve structure and function. There is no aortic valve stenosis. There is no aortic valve regurgitation. Mitral Valve Normal mitral valve structure and function. There is trace mitral valve regurgitation. There is no mitral valve stenosis. Pulmonic Valve The pulmonic valve was not well visualized. Tricuspid Valve Likely normal tricuspid valve structure and function. There is trace tricuspid valve regurgitation. The right ventricular systolic pressure is normal. The right ventricular systolic pressure is 19 mmHg. Normal right atrial pressure. There is no evidence of pulmonary hypertension. Great Vessels All visible segments of the aorta are normal in size. The pulmonary artery was not well visualized. Venous The inferior vena cava is normal in size and collapses greater than 50% with inspiration. Pericardium/Pleural There is no evidence of pericardial effusion. Prior Study Comparison No prior study available for comparison. Measurements 2D Linear Measurements IVSd: 1.28 0.6-0.9/0.6-1.0 cm LVIDd: 4.08 3.9-5.3/4.2-5.9 cm LVIDd Index: 2.15 2.4-3.2/2.2-3.1 cm/m2 LVIDs: 2.68 2.0-3.6 cm LVPWd: 1.27 0.7-1.1 cm Ao Root: 3.30 2.1-3.5 cm LA Diam: 3.20 2.7-3.8/3.0-4.0 cm LAIDs Index: 1.68 1.5-2.3 cm/m2 LV Mass: 232.46 67-162/88-224 g LV Mass Index: 122.35 43-95/49-115 g/m2 LVOT Diam: 2.20 3.0+(-)1.3 cm Mitral Valve MV Pk E: 0.69 MV PK A: 0.98 MV Decel Time: 211.00 E/A: 0.70 E'Lateral: 11.20 E'Medial: 10.70 E/E' Med: 6.50 E/E' Lat: 6.20 PHT: 62.00 MVA PHT: 3.55 Decel Woods: 3.29 Aortic Valve AoV Pk Charlie: 1.65 AoV Mn Charlie: 1.03 AoV VTI: 0.33 AoV Pk Grad: 11.00 Aov Mn Grad: 5.00 DRAKE Cont.VTI: 2.35 LVOT LVOT Pk Charlie: 0.96 LVOT Mn Charlie: 0.57 LVOT VTI: 0.20 LVOT Pk Grad: 4.00 LVOT Mn Grad: 2.00 LVOT Diam: 2.20 LVOT Area: 3.80 Diastolic Function MV Pk E: 0.69 MV Pk A: 0.98 E/A: 0.70 E'Medial: 10.70 E/E' Med: 6.50 E' Laterial: 11.20 E/E' Lat: 6.20 Tricuspid Valve TR Pk Charlie: 2.01 TR Pk Grad: 16.00 RA Press: 3.00 RVSP: 19.00 Great Vessels Aorta Ao Root-2D: 3.30 2.0-3.7 cm Ao Asc: 2.90 2.1-3.4 cm Pulmonary Valve PV Pk Charlie: 1.37 Peak PV Grad: 8.00 Updated in Other Vendor System with Status of Final Hilario Fritz MD electronically signed on 06/09/2022 4:54:43 PM with status of Final
== END ==
LOC: HO.CARD 14:51
PROVIDERS: PCP Internal Medicine; Visit Provider Internal Medicine
DX: Z01.810 Encounter for preprocedural cardiovascular examination (principal)
CPT/HCPCS: 93306

== ENCOUNTER → 2022-06-10 09:48 | Outpatient (REF) | payer BC, OTHER, SELFPAY ==
--- NOTE | ~2022-06-10 | NM_ITS ---
Lexiscan Myocardial perfusion study Indication: Preoperative cardiovascular evaluation Technique: The patient was brought in for a Lexiscan perfusion study on 06/10/2022 and was injected 0.4 mg of Lexiscan intravenously. Within a minute of this injection 25 mCi of sestamibi was given intravenously. Images were obtained using the SPECT gamma camera interlaced with the gating device. Images were obtained in supine position. Resting perfusion study was performed on 06/11/2022. Patient was administered 25 mCi of sestamibi intravenously at rest. Images were then obtained in supine position. Total DLP 78mGy-cm. Images were processed with the software and compared side to side in short axis, horizontal long axis and vertical long axis views. Findings: Raw acquisition reviewed. The stress perfusion study showed mildly diminished tracer uptake in the distal part of anterior wall and adjacent apex. With CT attenuation correction, there is improvement in this area suggestive of soft tissue attenuation artifact. The gated study shows low normal LV systolic function with calculated LVEF of 54%. LV cavity is normal in size. The gated study shows normal wall thickening and contraction of segments. Resting study shows no significant perfusion abnormality. Gating at rest reveals normal wall motion with ejection fraction at 53%. The findings are consistent with mild reversible distal anterior/apical defect but improving with CT attenuation correction. NM/NM cardiolite stress test Impression: 1. Myocardial perfusion imaging study shows mild reversible distal anterior/apical defect. Improvement with CT attenuation correction as well as normal contractility suggestive of soft tissue attenuation artifact. Less likely to be from mild ischemia. 2. Gated LVEF is 54% during stress and 53% during rest. Correlate with echocardiogram. 3. Transient ischemic dilatation not present. EKG component of the test reported separately.
--- NOTE | 2022-06-10 09:50 | CA_ITS ---
Acquisition Time: 2022-06-10 09:51:23 Total Exercise Time: 00:02:00 Test Indications: SOB Medications: Protocol: LEXISCAN Max HR: 093 BPM 58% of Pred: 160 BPM Max BP: 146/068 mmHG Max Work Load: 1.0 METS Pharmacological nuclear stess test with Lexiscan injection, while sitting and kicking his legs, with report of sob and lightheadedness, without arrythmia, with drop in BP to low of 108/74 from baseline 146/68, without EKG changes meeting criteria for ischemia. In recovery he was treated with Aminophylline 75mg IVP to reverse Lexiscan with resolution of symptoms. Nuclear images pending. Test reviewed with Dr Fritz Referred By: Carlos A Fletcher Overread By: KYLIE COLLIER
== END ==
LOC: HO.CARD 09:48
PROVIDERS: PCP Internal Medicine; Visit Provider Internal Medicine
DX: Z01.810 Encounter for preprocedural cardiovascular examination (principal)
CPT/HCPCS: 78452; 93017; A9500; J0280; J2785

== ENCOUNTER 2022-06-12 | Outpatient (REF) | payer BC, OTHER, SELFPAY | END 2022-06-12 00:01 | LOC: HO.RESP | PROVIDERS: PCP Internal Medicine; Visit Provider Internal Medicine | DX: J41.0 Simple chronic bronchitis (principal); F17.210 Nicotine dependence, cigarettes, uncomplicated; Z79.899 Other long term (current) drug therapy | CPT/HCPCS: 94010 ==

== ENCOUNTER 2022-06-16 06:14 | Inpatient (IN) | payer BC, OTHER, SELFPAY ==
[2022-06-09 11:57] VITALS: BP 160/78; PULSE 76; RESP 16; O2SAT 96; BMI 22.7
--- NOTE | 2022-06-09 12:18 | P.CONAN_ITS ---
Documented by User: Suni Bermudez NP 06/13/22 10:52 HPI - Anesthesia Eval Consult details Narrative: 61yo M for Left Femoral Popliteal Bypass Graft Cardiac clearance Echocardiogram with normal LVEF, 60-65%, mild diastolic dysfunction but otherwise unremarkable. In the myocardial perfusion imaging study, mild reversible distal anterior/apical defect.? However, there was improvement with CT attenuation correction and there was also normal thickening and hence thought to be rather artifactual.? However, cannot definitively exclude mild LAD territory ischemia. Clinically, he does not have any angina either. Overall, may proceed with vascular surgery.? Intermediate cardiac risk. Pulmo clearance ? ? HE DOES HAVE SEVERE COPD BUT IT HAS REMAINED VERY STABLE AND CONTROLLED. ? ? HE DOES NOT HAVE ANY ACUTE CONTRAINDICATION TO THE PLANNED SURGERY. ? ? HOWEVER HE IS MODERATELY HIGH RISK FOR ANY PROLONGED GENERAL ANESTHESIA OR MAJOR SURGERY, ?? POSTOPERATIVELY HE SHOULD BE WATCH FOR ANY RESPIRATORY DISTRESS. ?? I RECOMMEND THAT HE SHOULD BE TREATED WITH DUONEB UPDRAFTS Q 6 [address] WHILE AWAKE.? AND IN PLACE OF SYMBICORT HE CAN BE TREATED WITH ?? BREO -200-25 1 INHALATION DAILY, TO RESUME USING SYMBICORT WHEN HE GOES BACK HOME. ETOH: 6-8 beers daily, never experienced withdrawal but has never attempted to stop. Discussed risk r/t ETOH complications post op and instructed to decrease consumption by 1 beer daily leading up to surgery Polycythemia vera - last therapeutic phleb about 1 year ago per patient PMFSH Active Problems Active Problems: All Active Problems (Updated 06/09/22 @ 12:14 by Lily Membreno RN) Thigh abscess (Acute) Annual physical exam (Acute) COPD (chronic obstructive pulmonary disease) (Acute) Tubular adenoma of colon (Acute) Erectile dysfunction (Acute) Polycythemia vera (Acute) HTN (hypertension) (Acute) Encounter for colonoscopy due to history of adenomatous colonic polyps (Acute) Leg edema, right (Acute) Varicose veins of right lower extremity with inflammation (Acute) PAD (peripheral artery disease) (Acute) Tingling of left upper extremity (Acute) Screening for hyperlipidemia (Acute) Preoperative cardiovascular examination (Acute) Smoker (Acute) Dizziness (Acute) Bronchitis (Acute) GERD (gastroesophageal reflux disease) (Acute) Finger injury (Acute) Past Medical History Medical History Arthritis Bronchitis COPD (chronic obstructive pulmonary disease) Dizziness ETOH abuse Finger injury GERD (gastroesophageal reflux disease) HTN (hypertension) Hypotension Murmur Polycythemia vera S/P angiogram of extremity Smoker SOB (shortness of breath) Family History Family History Father Diabetes Stroke Hypertension Mother Chronic mental illness Family/Other FH: mental illness Family history of problems with anesthesia: No Surgical History Surgical History History of esophagogastroduodenoscopy History of foot surgery History of lipoma History of removal of cyst History of skin graft Hx of colonoscopy History of Problems with Anesthesia: No Social History Social History Household Members: Spouse Housing: House Are you a primary transitions rn care coordinator to a significant other at home: No Do you presently have visiting nurse or other home services: No Alcohol intake: current Alcohol intake frequency: a few times a month Alcohol type: beer Patient Tobacco Use Status: Current everyday Tobacco user Tobacco use type: Cigarette Cigarette Packs Per Day: 0.5 Cigarettes Per Day: 12 Years Smoked: 40 Smoked in Last 30 Days: Yes e-Cigarette/Vaping Use: Never Used Patient Interested in Nicotine Replacement: Yes Patient Given Instructions on How to Stop Smoking: Yes Date Education Initiated: 06/09/22 Second Hand Smoke Exposure: Yes ( smokes also) Use of substances other than those prescribed or required for medical reasons: No Have you been hit, kicked, punched, or otherwise hurt by someone within the past year? 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 SOB at baseline r/t COPD. Activity very limited d/t pain of claudication Meds Allergies Allergy/AdvReac Type Severity Reaction Status Date / Time nabumetone AdvReac Unknown green Verified 06/12/22 16:35 stools Home Medications Medication Instructions Recorded Confirmed Last Taken Type budesonide-formoterol HFA 160 2 puff inhalation DAILY 06/09/22 06/09/22 Unknown History mcg-4.5 mcg/actuation aerosol inhaler (Symbicort) Exam Exam Date and Time: June 09, 2022 1218 Height,Weight and Vital Signs: Height 5 ft 10 in Weight 72 kg Last Vital Signs Pulse 76 06/09/22 11:57 Resp 16 06/09/22 11:57 BP 160/78 H 06/09/22 11:57 Pulse Ox 96 06/09/22 11:57 O2 Del Method 06/09/22 11:57 Pertinent Lab Results Pertinent Lab Results: Lab Results 06/09/22 06/09/22 06/09/22 Range/Units 13:05 13:05 13:05 WBC 5.2 (4.8-10.8) X10*3/uL RBC 4.77 (4.60-5.80) X10*6/uL Hgb 14.0 (14.0-18.0) g/dl Hct 41.2 L (42.0-52.0) % MCV 86.4 (80.0-98.0) fL MCH 29.4 (27.0-33.0) pg MCHC 34.0 (31.0-36.0) g/dl RDW 14.0 (11.0-16.0) % Plt Count 233 (160-400) X10*3/uL MPV 9.1 L (9.4-12.4) fL Absolute Nucleated RBC 0.000 (0.0-0.012) X10*3/uL Nucleated RBC % (auto) 0.0 (0.0-0.2) /100WBC PT 11.2 (10.0-13.1) SEC INR 1.0 (0.9-1.1) APTT 30.1 (26.0-36.4) SEC Sodium 137 (135-145) mmol/L Potassium 5.4 H D (3.3-5.1) mmol/L Chloride 101 (96-108) mmol/L Carbon Dioxide 27 (22-29) mmol/L Anion Gap 14 (12-20) BUN 7 L (9-16) mg/dL Creatinine 0.75 (0.5-1.4) mg/dL Estim Creat Clear Calc 106.6 Estimated GFR > 60 Random Glucose 99 (60-115) mg/dL Calcium 9.9 (8.4-10.2) mg/dL Blood Type Antibody Screen 06/09/22 Range/Units 13:05 WBC (4.8-10.8) X10*3/uL RBC (4.60-5.80) X10*6/uL Hgb (14.0-18.0) g/dl Hct (42.0-52.0) % MCV (80.0-98.0) fL MCH (27.0-33.0) pg MCHC (31.0-36.0) g/dl RDW (11.0-16.0) % Plt Count (160-400) X10*3/uL MPV (9.4-12.4) fL Absolute Nucleated RBC (0.0-0.012) X10*3/uL Nucleated RBC % (auto) (0.0-0.2) /100WBC PT (10.0-13.1) SEC INR (0.9-1.1) APTT (26.0-36.4) SEC Sodium (135-145) mmol/L Potassium (3.3-5.1) mmol/L Chloride (96-108) mmol/L Carbon Dioxide (22-29) mmol/L Anion Gap (12-20) BUN (9-16) mg/dL Creatinine (0.5-1.4) mg/dL Estim Creat Clear Calc Estimated GFR Random Glucose (60-115) mg/dL Calcium (8.4-10.2) mg/dL Blood Type A Positive Antibody Screen NEGATIVE Narrative Narrative: EKG 05/2022 sinus rhythm at 77/Min; rightward axis; incomplete right bundle-branch block, normal ME and corrected QT. Echo 05/2022 Conclusions: - 1.? Normal LV systolic function with grade 1 diastolic ? dysfunction? 2.? Normal cardiac valvular Doppler? 3.? Normal RV systolic pressure? 4.? No pericardial effusion? ?? NM cardiolite stress test 05/2022 Impression: ? 1.? Myocardial perfusion imaging study shows mild reversible distal anterior/apical defect. Improvement with CT attenuation correction as well as normal contractility suggestive of soft tissue attenuation artifact. Less likely to be from mild ischemia. 2.? Gated LVEF is 54% during stress and 53% during rest. Correlate with echocardiogram. 3. Transient ischemic dilatation not present. ? EKG component of the test reported separately. Airway Mallampati Class: II TM Dist: >3cm Neck ROM: Full Loose/Missing/Broken Teeth: Yes (Missing molars) Heart: RRR +M Lungs: Coarse throughout, but clears with deep cough Assessment and Plan Assessment Anesthesia Assessment: Anesthesia Plan Discussed (Discussed increased risk r/t smoking and ETOH. Also unknown risk r/t pending cardiac studies.), Smoking Cess. Discussed and PAT Visit Final Anesthetic Review Family History of Problems with Anesthesia: No History of Problems with Anesthesia: No Documented by User: Ruy Saravia MD 06/16/22 13:51 [facility] Past Medical History Medical History Arthritis Bronchitis COPD (chronic obstructive pulmonary disease) Dizziness ETOH abuse Finger injury GERD (gastroesophageal reflux disease) HTN (hypertension) Hypotension Murmur Polycythemia vera S/P angiogram of extremity Smoker SOB (shortness of breath) Functional capacity: independent ambulation Family History Family History Father Diabetes Stroke Hypertension Mother Chronic mental illness Family/Other FH: mental illness Surgical History Surgical History History of esophagogastroduodenoscopy History of foot surgery History of lipoma History of removal of cyst History of skin graft Hx of colonoscopy Social History Social History Household Members: Spouse Housing: House Are you a primary transitions rn care coordinator to a significant other at home: No Do you presently have visiting nurse or other home services: No Alcohol intake: current Alcohol intake frequency: a few times a month Alcohol type: beer Patient Tobacco Use Status: Current everyday Tobacco user Tobacco use type: Cigarette Cigarette Packs Per Day: 0.5 Cigarettes Per Day: 12 Years Smoked: 40 Smoked in Last 30 Days: Yes e-Cigarette/Vaping Use: Never Used Patient Interested in Nicotine Replacement: Yes Patient Given Instructions on How to Stop Smoking: Yes Date Education Initiated: 06/09/22 Second Hand Smoke Exposure: Yes ( smokes also) Use of substances other than those prescribed or required for medical reasons: No Have you been hit, kicked, punched, or otherwise hurt by someone within the past year? 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 occupational exposures/hazards: No Cognitive needs: No Hearing needs: No Vision needs: Yes Meds Allergies Allergy/AdvReac Type Severity Reaction Status Date / Time nabumetone AdvReac Unknown green Verified 06/12/22 16:35 stools Home Medications Medication Instructions Recorded Confirmed Last Taken Type budesonide-formoterol HFA 160 2 puff inhalation DAILY 06/09/22 06/09/22 Unknown History mcg-4.5 mcg/actuation aerosol inhaler (Symbicort) Exam Airway Loose/Missing/Broken Teeth: Yes (Missing molars, fillings ) Assessment and Plan Assessment Anesthesia Assessment: Anesthesia Plan Discussed (Discussed increased risk r/t smoking and ETOH. ) and Chart Reviewed Final Anesthetic Review NPO: Yes ASA Class: III Final Preanesthetic Review: Meds/Allgs Chart Reviewed, Consent Obtained/Reviewed and Anes Risks/Benef Reviewed Patient Risk: Intermediate Procedure Risk: Intermediate Anesthetic Plan Anesthetic Plan: GA Disposition: Inp. Admit - ICU
[2022-06-09 13:23] LABS: Hematocrit 41.2 % (42.0-52.0); Mean Corpuscular Hemoglobin 29.4 pg (27.0-33.0); Mean Corpuscular Volume 86.4 fL (80.0-98.0); Mean Platelet Volume 9.1 fL (9.4-12.4); Platelet Count 233 X10*3/uL (160-400); Red Blood Count 4.77 X10*6/uL (4.60-5.80); White Blood Count 5.2 X10*3/uL (4.8-10.8)
[2022-06-09 13:40] LABS: Prothrombin Time 11.2 SEC (10.0-13.1)
[2022-06-09 13:42] LABS: Partial Thromboplastin Time 30.1 SEC (26.0-36.4)
[2022-06-09 13:49] LABS: Anion Gap 14 (12-20); Blood Urea Nitrogen 7 mg/dL (9-16); Calcium 9.9 mg/dL (8.4-10.2); Carbon Dioxide 27 mmol/L (22-29); Chloride 101 mmol/L (96-108); Creatinine Clr Calc Pharmacy 106.6; Estimated Glomerular Filt Rate > 60; Glucose Random 99 mg/dL (60-115); Potassium 5.4 mmol/L (3.3-5.1); Sodium 137 mmol/L (135-145)
[2022-06-16] VITALS (29 sets, daily range): BP systolic 108–148; BP diastolic 42–80; PULSE 65–92; RESP 12–19; TEMP 36.2–36.9; O2SAT 95–100; BMI 22.9
[2022-06-16 06:36] LABS: COVID-19 Test Negative (Negative)
[2022-06-16] MEDS: Lactated Ringers 1,000 ML 100 ML IVCONT (06:48)
[2022-06-16 06:51] LABS: Anion Gap 15 (12-20); Blood Urea Nitrogen 7 mg/dL (9-16); Carbon Dioxide 25 mmol/L (22-29); Chloride 101 mmol/L (96-108); Creatinine Clr Calc Pharmacy 106.1; Estimated Glomerular Filt Rate > 60; Glucose Random 107 mg/dL (60-115); Potassium 4.4 mmol/L (3.3-5.1); Sodium 137 mmol/L (135-145)
[2022-06-16] MEDS: Albuterol/Iprat 2.5/0.5MG 3 ML AMPUL.NEB INHALE ×2 (07:06→12:23)
--- NOTE | 2022-06-16 07:18 | MHC.SHP ---
Pre-Procedural Eval Section A Date of Service: 06/16/22 The patient is an INPATIENT: No Changes since office visit: Yes Patient answered all questions The History & Physical has been completed within 30 days and I have reviewed it.: Yes Section B Chief Complaint: Postop Allergies: Allergies Allergy/AdvReac Type Severity Reaction Status Date / Time nabumetone AdvReac Unknown green Verified 06/12/22 16:35 stools Plan I have reviewed the history and physical and performed a pertinent physical examination on my patient. No changes have occurred unless specified.
--- NOTE | 2022-06-16 10:19 | P.OP_ITS ---
Operative Note Operative Note Date of Service: 06/16/22 Narrative: Operative note by [facility] Preoperative diagnosis: Left leg atherosclerosis with severe activity limiting claudication Postoperative diagnosis: Same Procedure: Left femoral to above knee popliteal bypass (Alexander Propaten) 2, left femoral and remote external iliac endarterectomy Surgeon:Jhony Orr M.D. Sales Technician Home Theater: Dr. Mcadams Anesthesia: General Specimens: 1 Drains:0 Estimated blood loss: 100 mL Indications: 61-year-old gentleman with a history of smoking insert Juan Pablo of peripheral vascular disease presents for bypass surgery of the left lower extremity. The patient has signed the informed consent after reviewing risks, complications, benefits, and alternatives previously discussed with the patient. The patient was given the opportunity to ask any additional questions or voice any concerns. All questions were answered to the patient's satisfaction. Procedure in detail: Patient was brought to the operating room prior to which a time-out was called for patient identification and site verification. Left leg was prepped and draped in standard surgical fashion. Incision was carried out over the femoral artery. In a longitudinal fashion. We were able to easily dissect down to the common femoral the sheath was then entered. A we went down to the inguinal ligament. This was dissected clear. We were able to isolate these with a silastic loop proximally and distally. Once we then turned our attention to the left above knee popliteal region. Incision was carried out over the medial groove to enter into the popliteal fossa. We used Doppler to direct our dissection and we were able to easily identify the popliteal artery. In a similar fashion this was isolated with silastic loops. A subcutaneous tunnel was then created with an aortic clamp. Umbilical tape was passed through. And at this time 5000 units of systemic heparin was administered. After 5 minutes of circulation time we clamped the common femoral artery proximally and distally. We made an arteriotomy with an 11 blade. There was a fair amount of atherosclerotic plaque that had to be endarterectomized and then we did a remote external iliac endarterectomy as well. This was passed off the table as specimen. Once this was accomplished a Alexander Propaten 6 x 50 graft was trimmed to appropriate length. This was then circumferentially anastomosed with a Alexander CV 5 suture. Once again in a circumferential at manner. Prior to closure was flushed clear and then flushed through the graft. Two interrupted 6-0 Prolene sutures had to be placed for hemostasis. Once this was accomplished we tunnel the graft through the subcutaneous tunnel. We then brought into the popliteal fossa. The graft was trimmed to the appropriate length. Once this was accomplished we then in a similar fashion made an arteriotomy on the popliteal vessel. This was done with an 11 blade and opened further with a Downing scissor. We then circumferentially anastomosed with a similar Alexander CV 5 suture. Prior to closure this was flushed clear. We then closed and we reestablished flow. Once again there was 2 separate interrupted areas of bleeding that was closed over with a regular 6 0 Prolene suture. Adequate hemostasis was achieved. Flow was checked with Doppler. There was a clear signal change from monophasic to triphasic with clamping of graft. Once this was all accomplished adequate hemostasis was achieved Tisseel sealant was used. Deep layer was reapproximated using 2 0 Polysorb superficial layer with 3-0 poly Sorb and finally skin with skin clips. Sterile dressings were applied. At the end the case sponge instrument counts were correct. Patient tolerated the procedure well returned to recovery with stable vitals. This note is constructed using voice recognition software. While every effort has been made to ensure accuracy, gear hobber errors may have been included. Thank you for allowing me to participate in the care of your patient. Yours sincerely, Jhony Orr MD, FACS, R.P.V.I.
--- NOTE | 2022-06-16 10:36 | PHA.MEDREC ---
Pharmacy Consult ? Medication Reconciliation Pharmacy has completed the medication reconciliation.
[2022-06-16] MEDS: fentaNYL citrate/PF 100 MCG/2 ML VIAL 25 MCG IVPUSH (10:42)
[2022-06-16] MEDS: oxyCODONE HCl Immed Release 5 MG TABLET PO (10:43)
[2022-06-16] MEDS: ceFAZolin Sodium/Dextrose,Iso 2 GM/50 ML PIGGYBACK IV (12:11)
[2022-06-16] MEDS: 0.9 % Sodium Chloride 1,000 ML 80 ML IVCONT (12:11)
--- NOTE | 2022-06-16 17:37 | PC.NURSE ---
Message sent to Dr. Pérez made aware patient concern with daily ETOH 5-8 beers daily. reports risk of withdrawal. candy. notified.
--- NOTE | 2022-06-16 18:29 | PC.NURSE ---
ADMITTED FROM PACU AT 1755 POSITIVE BILATERAL PULSES, DRESSINGS TO INCISION SITES C/D/I REEL MAN NOTIFIED THIS RN THAT PATIENT DRINKS 6-12 BEERS DAILY AND LAST DRINK WAS LAST NIGHT 06/15/22 - VERIFIED INFORMATION TO BE CORRECT WITH PATIENT. PATIENT IS AGITATED WITH ADMISSION QUESTIONS BEING ASKED BUT NO OTHER S/S OF WITHDRAWAL AT THIS TIME.
[2022-06-16] MEDS: Morphine Sulfate 2 MG/ML CARTRIDGE IVPUSH (20:50)
[2022-06-17] VITALS (16 sets, daily range): BP systolic 113–138; BP diastolic 50–96; PULSE 61–97; RESP 11–20; TEMP 36.7–37.6; O2SAT 90–98; BMI 25.0
[2022-06-17] MEDS: oxyCODONE HCl Immed Release 5 MG TABLET PO ×4 (00:53→16:56)
[2022-06-17] MEDS: 0.9 % Sodium Chloride 1,000 ML 80 ML IVCONT (00:55)
[2022-06-17] MEDS: LORazepam 0.5 MG TABLET PO (01:01)
[2022-06-17] MEDS: 0.9 % Sodium Chloride Flush 3 ML SYRINGE IVFLUSH ×4 (01:02→19:55)
[2022-06-17 05:31] LABS: MANUAL DIFF FLAG NO
[2022-06-17 05:35] LABS: Basophils Percent Auto 0.3 % (0-2); Hemoglobin 11.4 g/dl (14.0-18.0); Imm Gran Abs Auto 0.02 X10*3/uL (0.00-0.03); Imm Gran Pct Auto 0.3 % (0.0-0.4); Lymphocytes Absolute Auto 1.2 X10*3/uL (1.2-4.9); Lymphocytes Percent Auto 16.1 % (20-40); Mean Corpuscular HGB Conc 33.5 g/dl (31.0-36.0); Mean Corpuscular Hemoglobin 29.1 pg (27.0-33.0); Mean Corpuscular Volume 86.7 fL (80.0-98.0); Mean Platelet Volume 9.9 fL (9.4-12.4); Monocytes Absolute Auto 0.7 X10*3/uL (0.1-1.2); Monocytes Percent Auto 9.7 % (2-11); Neutrophils Absolute Auto 5.6 x10*3/uL (2.0-8.3); Neutrophils Percent Auto 73.6 % (45-73); Platelet Count 200 X10*3/uL (160-400); Red Blood Count 3.92 X10*6/uL (4.60-5.80); Red Cell Distribution Width 14.2 % (11.0-16.0); White Blood Count 7.7 X10*3/uL (4.8-10.8)
[2022-06-17 06:01] LABS: Anion Gap 15 (12-20); Blood Urea Nitrogen 4 mg/dL (9-16); Calcium 8.8 mg/dL (8.4-10.2); Carbon Dioxide 24 mmol/L (22-29); Chloride 99 mmol/L (96-108); Estimated Glomerular Filt Rate > 60; Glucose Random 110 mg/dL (60-115); Potassium 3.8 mmol/L (3.3-5.1); Sodium 134 mmol/L (135-145)
[2022-06-17] MEDS: Omeprazole 20 MG CAPSULE.DR PO (06:12)
--- NOTE | 2022-06-17 06:23 | PC.NURSE ---
GARRY BARRON D/C'D. PT TOLERATED WELL. PT SLEPT ON AND OFF DURING THE NIGHT. RECEIVED ONE DOSE OF ATIVAN 0.5 MG PO FOR ANXIETY JUST BEFORE SLEEP. GOOD EFFECT FROM ATIVAN. ONE DOSE OF MORPHINE GIVEN AND 2 DOSES OF OXYCODONE FOR LEFT LEG PAIN WITH GOOD EFFECT. LEFT GROIN AND LOWER LEG FOAM DRESSINGS ARE D&I. PEDAL AND POST TIBIAL PULSES PALPABLE. GOOD SENSATION TO LEFT FOOT. FOOT IS WARM. PT DENIES NUMBNESS OR TINGLING.
--- NOTE | 2022-06-17 06:26 | PC.NURSE ---
DAVID INTACT AND PATENT RIGHT RADIAL ARTERY. LINE ZERO TRIMMED AND CALIBRATED TO ATMOSPHERIC PRESSURE. GOOD WAVEFORM. BP STABLE.
[2022-06-17] MEDS: amLODIPine Besylate 10 MG TABLET PO (09:29)
--- NOTE | 2022-06-17 10:11 | HO.VASCPN ---
Subjective Subjective Date of Service: 06/17/22 Patient reports: no new complaints and feels better Interval history: very pleasant 61-year-old gentleman presents for follow-up status post fem-pop bypass. Reportedly doing fairly well. No postprocedure complaints. Pain appears to be well controlled. He reports that the foot does feel warmer. He now presents for follow-up. Physical Exam Vital Signs: Vital Signs: Last Vital Signs Temp 98.5 F 06/17/22 01:00 Pulse 79 06/17/22 09:00 Resp 14 06/17/22 09:00 BP 116/53 L 06/17/22 09:00 Pulse Ox 92 06/17/22 09:00 O2 Del Method 06/17/22 09:00 O2 Flow Rate 3 06/17/22 09:00 BMI result Body Mass Index 25.0 Const: General: cooperative, healthy appearing and no acute distress Orientation/consciousness: oriented to person, oriented to place and oriented to time HEENT: Head: Yes normal to inspection Neck: Carotids: no bruits Chest: Chest palpation & inspection: normal inspection of the chest Resp: Effort & Inspection: normal respiratory effort and able to speak in complete sentences Auscultation: clear to auscultation bilaterally Cardio: Rate: regular rate Heart sounds: S1 normal heart sound present and S2 normal heart sound present Peripheral pulses: dorsalis pedis present ( left leg palpable dorsalis pedis pulse) GI: Inspection: Yes normal to inspection Skin: Other: Incisions clean dry intact General skin exam: no rashes or lesions noted Wounds: no wounds Neuro: General: oriented to person, oriented to place, oriented to time and CN's II-XI intact bilaterally Extrem: General: Yes normal to inspection, Yes full ROM and Yes no clubbing, cyanosis or edema Psych: Appearance: grossly normal and well kempt Speech and movement: Normal speech and movement present Affect: normal affect Progress Note: A&P Assessment and plan (1) PAD (peripheral artery disease): Status: Acute Assessment and Plan: in short patient has done extremely well status post fem-pop bypass. Collins has been removed. We can remove the A-line. He is tolerating a diet. He is stable for transfer up to [facility]. Out of bed to chair today only. Hopefully will progress within the next day or to for potential discharge. Time Spent With Patient Time: Total time spent is greater than 50% in coordination of care (as documented) at patient's floor/unit and/or counseling patient: Procedures Date of Service Date of Service: 06/17/22 Quality Stroke Does the patient have a stroke diagnosis?: No VTE Prior VTE?: No VTE Risk Level:: Surgical - high VTE Device Contraindication: Treatment Not Indicated VTE Drug Contraindication: N/A - Med Ordered
--- NOTE | 2022-06-17 11:03 | HO.POSTANES ---
Post Anesthesia Evaluation Post Anesthesia Evaluation Vital Signs: Vital Signs Temp Pulse Resp BP Pulse Ox O2 Del Method O2 Flow Rate 06/17/22 08:49 91 L Room Air 06/17/22 09:00 79 14 116/53 L 92 Nasal Cannula 3 06/17/22 08:00 71 17 138/86 90 L Nasal Cannula 3 06/17/22 07:00 71 14 123/61 96 Nasal Cannula 3 06/17/22 06:00 66 12 113/96 H 97 Nasal Cannula 3 06/17/22 04:00 63 14 128/57 L 94 Nasal Cannula 3 06/17/22 02:00 66 13 121/50 L 95 Nasal Cannula 3 06/17/22 01:00 98.5 F 65 16 122/55 L 97 Nasal Cannula 3 06/17/22 00:00 61 19 123/54 L 98 Nasal Cannula 3 06/17/22 05:00 67 11 L 121/62 98 Nasal Cannula 3 06/17/22 03:00 65 18 128/53 L 96 Nasal Cannula 3 Anesthesia: General Endotracheal-GETA Mental Status: Awake Pain Control: Satisfactory Nausea/Vomiting: None Hydration: Adequate Anesthesia-Related Issues: No Anes. Related Issues
[2022-06-17] MEDS: Heparin Sodium,Porcine 5,000 UNIT/ML VIAL 5000 UNIT SUBCUT ×2 (11:29→19:54)
[2022-06-17] MEDS: Morphine Sulfate 2 MG/ML CARTRIDGE IVPUSH ×2 (14:07→19:55)
--- NOTE | 2022-06-17 14:25 | MHC.CM.PN ---
Met with pt to discuss d/c planning needs: pt resides w/spouse, is independent w/ADL's, works, drives and offers no barriers to care. Pt has a nebulizer, no services and sees Dr. Arun Jeter. Spouse to transport home: no services anticipated. [facility] x 2. CM to follow.
[2022-06-18] VITALS (9 sets, daily range): BP systolic 104–144; BP diastolic 57–76; PULSE 78–84; RESP 14–20; TEMP 36.3–37.9; O2SAT 89–97; BMI 25.2
[2022-06-18] MEDS: LORazepam 0.5 MG TABLET PO ×3 (00:16→20:18)
[2022-06-18] MEDS: Nicotine Polacrilex 2 MG GUM 4 MG BUCCAL (00:17)
[2022-06-18] MEDS: Heparin Sodium,Porcine 5,000 UNIT/ML VIAL 5000 UNIT SUBCUT ×3 (03:28→20:19)
[2022-06-18] MEDS: Omeprazole 20 MG CAPSULE.DR PO (06:27)
[2022-06-18] MEDS: amLODIPine Besylate 10 MG TABLET PO (07:59)
[2022-06-18] MEDS: 0.9 % Sodium Chloride Flush 3 ML SYRINGE IVFLUSH ×2 (08:00→16:37)
--- NOTE | 2022-06-18 10:01 | HO.VASCPN ---
Subjective Subjective Date of Service: 06/18/22 Patient reports: no new complaints and feels better Interval history: Patient seen and examined. No significant events overnight. He did feel popping sensation in the left groin. Overall states that the leg feels weak but in general feels warmer and fairly strong. Now presents for postoperative follow-up. Physical Exam Vital Signs: Vital Signs: Last Vital Signs Temp 97.6 F 06/18/22 07:30 Pulse 78 06/18/22 07:30 Resp 20 06/18/22 07:30 BP 144/70 H 06/18/22 07:30 Pulse Ox 93 06/18/22 07:30 O2 Del Method 06/18/22 07:30 O2 Flow Rate 3 06/18/22 07:30 Oxygen Flow Rate 3 06/18/22 07:29 BMI result Body Mass Index 25.2 Const: General: cooperative, healthy appearing and no acute distress Orientation/consciousness: oriented to person, oriented to place and oriented to time HEENT: Head: Yes normal to inspection Neck: Carotids: no bruits Chest: Chest palpation & inspection: normal inspection of the chest Resp: Effort & Inspection: normal respiratory effort and able to speak in complete sentences Auscultation: clear to auscultation bilaterally Cardio: Rate: regular rate Heart sounds: S1 normal heart sound present and S2 normal heart sound present Peripheral pulses: dorsalis pedis present (Left leg palpable DP) GI: Inspection: Yes normal to inspection Skin: Other: Left groin and knee dressing clean dry intact to small cysts punctate staining in the left groin dressing which is stable General skin exam: no rashes or lesions noted Wounds: no wounds Neuro: General: oriented to person, oriented to place, oriented to time and CN's II-XI intact bilaterally Extrem: General: Yes normal to inspection, Yes full ROM and Yes no clubbing, cyanosis or edema Psych: Appearance: grossly normal and well kempt Speech and movement: Normal speech and movement present Affect: normal affect Progress Note: A&P Assessment and plan (1) PAD (peripheral artery disease): Status: Acute Assessment and Plan: In short patient is stable status post left femoral to popliteal bypass. No postprocedure events. He still does have some pain that is a requiring pain medication and will require physical therapy to get him more ambulatory. Would anticipate discharge tomorrow if stable. Time Spent With Patient Time: Total time spent is greater than 50% in coordination of care (as documented) at patient's floor/unit and/or counseling patient: Procedures Date of Service Date of Service: 06/18/22 Quality Stroke Does the patient have a stroke diagnosis?: No VTE Prior VTE?: No VTE Risk Level:: Surgical - high VTE Device Contraindication: Treatment Not Indicated VTE Drug Contraindication: N/A - Med Ordered
[2022-06-18] MEDS: polyethylene glycoL 3350 17 GM POWD.PACK PO (11:01)
--- NOTE | 2022-06-18 14:10 | P.CONIM_ITS ---
History of Present Illness Data of Consult Service Date: 06/18/22 Primary Care Provider: Goldie Guerrier MD HPI Reason for consult: Hypoxia A 61 years old male with PMH of COPD, HTN, P 80, smoking who presents to the hospital for surgical intervention by vascular team for femoral popliteal bypass. The patient reports feeling well after having the surgery at the surgical site not as painful. Reporting having some coughing episodes and shortness of breath upon ambulation requiring oxygen supplement. Reports that he uses inhalers outside of the hospital and his COPD is fairly controlled. He still actively smoking and looking to start Chantix as outpatient after this hospital stay. Hospitalist team asked evaluated the patient during the hospital stay after surgery. Review of Systems Review of Systems: No fever, chills or weakness No chest pain, palpitation No shortness of breath or coughing No abdominal pain, nausea or vomiting No urinary symptoms No any rash or wounds PMFSH Medical History Arthritis Bronchitis COPD (chronic obstructive pulmonary disease) Dizziness ETOH abuse Finger injury GERD (gastroesophageal reflux disease) HTN (hypertension) Hypotension Murmur Polycythemia vera S/P angiogram of extremity Smoker SOB (shortness of breath) Functional capacity: independent ambulation Family History Father Diabetes Stroke Hypertension Mother Chronic mental illness Family/Other FH: mental illness Surgical History History of esophagogastroduodenoscopy History of foot surgery History of lipoma History of removal of cyst History of skin graft Hx of colonoscopy Social History Household Members: Spouse Housing: House Are you a primary care assistant to a significant other at home: No Do you presently have visiting nurse or other home services: No Alcohol intake: current Alcohol intake frequency: a few times a month Alcohol type: beer Patient Tobacco Use Status: Current everyday Tobacco user Tobacco use type: Cigarette Cigarette Packs Per Day: 0.5 Cigarettes Per Day: 12 Years Smoked: 40 Smoked in Last 30 Days: Yes e-Cigarette/Vaping Use: Never Used Patient Interested in Nicotine Replacement: Yes Patient Given Instructions on How to Stop Smoking: No (DOES NOT WANT TO STOP SMOKING) Date Education Initiated: 06/09/22 Second Hand Smoke Exposure: Yes Use of substances other than those prescribed or required for medical reasons: No Currently Displaying Signs/Symptoms of Drug Intoxication Withdrawal: No Have you been hit, kicked, punched, or otherwise hurt by someone within the past year? If so, by whom?: No Do you feel safe in your current relationship?: Yes Is there a partner from a previous relationship who is making you feel unsafe now?: No Are you made to feel afraid or neglected: No Spiritual Healthcare Practices: none Anabaptism Healthcare Practices: none Cultural Healthcare Practices: none Are you DNR?: No Advance Directives: No (will try to find and bring dos) Advance Directives Information Provided: Yes Advance Directives on File: No Do you have thoughts of harming others: None Do you have a plan to hurt others: No Plan Recently lost weight without trying: No Eating poorly because of decreased appetite: No Nutrition Risks: No Nutritional Risk Poor oral hygiene: No service: Yes ([employer]) Current occupational status: employed 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 occupational exposures/hazards: No Cognitive needs: No Hearing needs: No Vision needs: Yes Meds Allergies Allergy/AdvReac Type Severity Reaction Status Date / Time nabumetone AdvReac Unknown green Verified 06/12/22 16:35 stools Active Medications: Current Medications Acetaminophen (Acetaminophen 325 Mg Tablet) 650 mg PO Q6H PRN PRN Reason: Pain, Mild (Pain Scale 1-3) Amlodipine Besylate (Amlodipine Besylate 10 Mg Tablet) 10 mg PO DAILY ANTHONY; Protocol Last Admin: 06/18/22 07:59 Dose: 10 mg Heparin Sodium (Porcine) (Heparin Sodium,Porcine 5,000 Unit/Ml Vial) 5,000 unit SUBCUT Q8H ANTHONY Last Admin: 06/18/22 11:02 Dose: 5,000 unit Lorazepam (Lorazepam 0.5 Mg Tablet) 0.5 mg PO Q4H PRN PRN Reason: Alcohol Withdrawal Last Admin: 06/18/22 09:24 Dose: 0.5 mg Morphine Sulfate (Morphine Sulfate 2 Mg/Ml Cartridge) 2 mg IVPUSH Q4H PRN; Protocol PRN Reason: Pain, Severe (Pain Scale 7-10) Last Admin: 06/17/22 19:55 Dose: 2 mg Nicotine Polacrilex (Nicotine Polacrilex 2 Mg Gum) 4 mg BUCCAL Q1H PRN PRN Reason: Nicotine Cravings Last Admin: 06/18/22 00:17 Dose: 4 mg Omeprazole (Omeprazole 20 Mg Capsule.Dr) 20 mg PO DAILY@0630 [facility] Last Admin: 06/18/22 06:27 Dose: 20 mg Oxycodone HCl (Oxycodone Hcl Immed Release 5 Mg Tablet) 5 mg PO Q4H PRN PRN Reason: Pain, Moderate (Pain Scale 4-6 Last Admin: 06/17/22 16:56 Dose: 5 mg Polyethylene Glycol (Polyethylene Glycol 3350 17 Gm Powd.Pack) 17 gm PO DAILY [facility] Last Admin: 06/18/22 11:01 Dose: 17 gm Sodium Chloride (0.9 % Sodium Chloride Flush 3 Ml Syringe) 3 ml IVFLUSH QSHIFT [facility] Last Admin: 06/18/22 08:00 Dose: 3 ml Home Medications Medication Instructions Recorded Confirmed Last Taken Type budesonide-formoterol HFA 160 2 puff inhalation DAILY 06/09/22 06/09/22 Unknown History mcg-4.5 mcg/actuation aerosol inhaler (Symbicort) Physical Exam Vital Signs and Narrative: Vital Signs: Last Vital Signs Temp 98 F 06/18/22 11:35 Pulse 83 06/18/22 11:35 Resp 18 06/18/22 11:35 BP 104/64 06/18/22 11:35 Pulse Ox 91 L 06/18/22 11:35 O2 Del Method 06/18/22 11:35 O2 Flow Rate 3 06/18/22 11:35 Oxygen Flow Rate 3 06/18/22 07:29 BMI result Body Mass Index 25.2 Const: Other: Constitutional : Alert, oriented, not in distress Neck : Normal inspection, Supple Cardiovascular : RRR, no JVP, no lower extremity edema Respiratory : fair bilateral air entry, no crackles, scattered bilateral wheezes Gastrointestinal: soft, lax, Normal bowel sounds, Non tender Skin : Warm, Dry, surgical site covered with dressing with no drainage or erythema noted Neurological : Alert & oriented x3, No focal deficit , CN 2-12 within normal Results Labs CBC and Chem 7: 06/17/22 05:05 06/17/22 05:05 Assessment and Plan (1) COPD (chronic obstructive pulmonary disease): Qualifiers: COPD type: chronic bronchitis Chronic bronchitis type: simple Qualified Code(s): J41.0 - Simple chronic bronchitis Status: Acute (2) PAD (peripheral artery disease): Status: Acute Plan A 61 years old male with PMH of COPD, HTN, P 80, smoking who presents to the hospital for surgical intervention by vascular team for femoral popliteal bypass. PAD Post left femoral to popliteal bypass Followed by vascular surgery T To do physical therapy COPD Requiring oxygen after surgery Use nebulizers around the clock Wean oxygen down as tolerated GERD continue PPI DVT PPX Heparin Thank you for the consult, please contact [facility] for any further questions
[2022-06-18] MEDS: Albuterol/Iprat 2.5/0.5MG 3 ML AMPUL.NEB INHALE (19:24)
[2022-06-19 03:38] VITALS: BP 121/60; PULSE 82; RESP 20; TEMP 36.6; O2SAT 96
[2022-06-19] MEDS: Omeprazole 20 MG CAPSULE.DR PO (04:06)
[2022-06-19] MEDS: LORazepam 0.5 MG TABLET PO (04:06)
[2022-06-19] MEDS: Heparin Sodium,Porcine 5,000 UNIT/ML VIAL 5000 UNIT SUBCUT ×2 (04:06→10:48)
[2022-06-19 05:46] VITALS: BMI 24.4
[2022-06-19 06:48] LABS: MANUAL DIFF FLAG NO
[2022-06-19] MEDS: 0.9 % Sodium Chloride Flush 3 ML SYRINGE IVFLUSH ×2 (06:58→10:48)
[2022-06-19 07:00] LABS: Basophils Percent Auto 0.5 % (0-2); Eosinophils Percent Auto 0.4 % (0-4); Hematocrit 35.5 % (42.0-52.0); Hemoglobin 12.1 g/dl (14.0-18.0); Imm Gran Abs Auto 0.04 X10*3/uL (0.00-0.03); Imm Gran Pct Auto 0.5 % (0.0-0.4); Lymphocytes Absolute Auto 1.3 X10*3/uL (1.2-4.9); Lymphocytes Percent Auto 16.2 % (20-40); Mean Corpuscular HGB Conc 34.1 g/dl (31.0-36.0); Mean Corpuscular Hemoglobin 29.4 pg (27.0-33.0); Mean Corpuscular Volume 86.2 fL (80.0-98.0); Mean Platelet Volume 9.8 fL (9.4-12.4); Monocytes Absolute Auto 1.1 X10*3/uL (0.1-1.2); Monocytes Percent Auto 13.6 % (2-11); Neutrophils Absolute Auto 5.6 x10*3/uL (2.0-8.3); Neutrophils Percent Auto 68.8 % (45-73); Platelet Count 191 X10*3/uL (160-400); Red Blood Count 4.12 X10*6/uL (4.60-5.80); White Blood Count 8.1 X10*3/uL (4.8-10.8)
[2022-06-19 07:40] VITALS: O2SAT 94
[2022-06-19 07:43] VITALS: BP 132/76; PULSE 70; RESP 20; TEMP 36.4; O2SAT 94
[2022-06-19] MEDS: Albuterol/Iprat 2.5/0.5MG 3 ML AMPUL.NEB INHALE (08:02)
[2022-06-19] MEDS: Fluticasone/Vilanterol 200/25 BLST.W.DEV 1 PUFF INHALE ×2 (08:02→10:47)
[2022-06-19 08:04] VITALS: PULSE 72; RESP 16; O2SAT 94
--- NOTE | 2022-06-19 09:54 | P.DS_ITS ---
DS: Providers Provider Date of Service: 06/19/22 Date of admission: 06/16/22 06:14 Primary care physician: Goldie Guerrier MD Consults: 06/17/22 11:19 Consult to Hospitalist Routine Consulting Provider: Hospitalist Reason For Exam: med management DS: Diagnosis Discharge Diagnosis (1) COPD (chronic obstructive pulmonary disease): Status: Acute (2) PAD (peripheral artery disease): Status: Acute DS: Summary Hospital Course Hospital Course: Patient underwent left femoral to popliteal bypass above knee on 06/16/2022. No events postprocedure. He was observed in ICU overnight it did require some Ativan. Postop day 1 was tolerating a diet transferred to C postop day 2 was ambulating fairly well but did have some pain. He was subsequently discharged on postop day 3. He was stable from a peripheral vascular perspective and did have a palpable dorsalis pedis pulse on the left side. In addition he was able to ambulate with physical therapy. He will follow up with me in 2 weeks time. Status at Discharge Functional status at discharge: independent ambulation Time Spent with Patient Time attestation: Total time spent providing and/or coordinating discharge services: Discharge coordination time: Greater than 30 minutes Quality: Safe Use of Opioids Does Pt have an Active Cancer Diagnosis on the Problem List?: No Quality: Stroke Does the patient have a stroke diagnosis?: No Physical Exam Vital Signs: Vital Signs: Last Vital Signs Temp 97.5 F 06/19/22 07:43 Pulse 72 06/19/22 08:04 Resp 16 06/19/22 08:04 BP 132/76 06/19/22 07:43 Pulse Ox 94 06/19/22 07:43 O2 Del Method 06/19/22 07:43 O2 Flow Rate 3 06/18/22 11:35 Oxygen Flow Rate 3 06/18/22 07:29 BMI result Body Mass Index 24.4 Const: General: cooperative, healthy appearing and no acute distress Orientation/consciousness: oriented to person, oriented to place and oriented to time HEENT: Head: Yes normal to inspection Neck: Carotids: no bruits Chest: Chest palpation & inspection: normal inspection of the chest Resp: Effort & Inspection: normal respiratory effort and able to speak in complete sentences Auscultation: clear to auscultation bilaterally Cardio: Rate: regular rate Heart sounds: S1 normal heart sound present and S2 normal heart sound present GI: Inspection: Yes normal to inspection Skin: Other: Left leg incisions healing well General skin exam: no rashes or lesions noted Wounds: no wounds Neuro: General: oriented to person, oriented to place, oriented to time and CN's II-XI intact bilaterally Extrem: General: Yes normal to inspection, Yes full ROM and Yes no clubbing, cyanosis or edema Psych: Appearance: grossly normal and well kempt Speech and movement: Normal speech and movement present Affect: normal affect DS: Data Data Completed and Pending Completed studies during hospitalization [Text1]: Pending at discharge 06/16/22 09:07 Surgical [PTH] Routine Labs on day of discharge: Laboratory Results - last 24 hr 06/19/22 06:15 WBC 8.1 RBC 4.12 L Hgb 12.1 L Hct 35.5 L MCV 86.2 MCH 29.4 MCHC 34.1 RDW 14.0 Plt Count 191 MPV 9.8 Immature Gran % (Auto) 0.5 H Neut % (Auto) 68.8 Lymph % (Auto) 16.2 L [place] % (Auto) 13.6 H Eos % (Auto) 0.4 Baso % (Auto) 0.5 Lymph # (Auto) 1.3 [place] # (Auto) 1.1 Eos # (Auto) 0.0 Baso # (Auto) 0.0 Abs Immat Gran (auto) 0.04 H Absolute Neuts (auto) 5.6 Absolute Nucleated RBC 0.000 Nucleated RBC % (auto) 0.0 Discharge Plan Discharge Patient Disposition: Home, Self-Care Discharge Diagnosis: Status post fem-pop bypass Referrals: Goldie Watkins MD [Primary Care Provider] - 1 Week Discharge Medications: New oxycodone-acetaminophen [Percocet] 5-325 mg tablet 1 tab PO Q8H PRN (Reason: pain) Qty: 20 0RF Rx Instructions: Partial Fill upon patient request. Continued pantoprazole 40 mg tablet,delayed release (DR/EC) 40 mg PO DAILY Qty: 90 3RF budesonide-formoterol [Symbicort] 160-4.5 mcg/actuation HFA aerosol inhaler 2 puff inhalation DAILY aspirin [Adult Aspirin Regimen] 81 mg tablet,delayed release (DR/EC) 81 mg PO DAILY Qty: 90 0RF sildenafil 100 mg tablet 100 mg PO DAILY PRN (Reason: sexual activity) Qty: 5 1RF ibuprofen 800 mg tablet 800 mg PO Q8H PRN (Reason: pain) 90 Days Qty: 270 0RF amlodipine 10 mg tablet 10 mg PO DAILY 90 Days Qty: 90 1RF Discharge Orders: Discharge Order (Routine); Ordered 06/19/22 Ordered By: Jhony Orr Activity on Discharge: As tolerated Stand Alone Forms: Patient Portal Discharge page Activity Restrictions/Additional Instructions: Skin joyce was used and you may shower tomorrow after removing dressings. No further dressings are required. Take it easy today and you may ambulate around the house. You may climb a flight of stairs as tolerated Do not lift anything heavier than a gallon of milk See Dr. Orr in follow-up in approximately 2 weeks time. You should already have an appointment if not please call my office at [phone] Please use Tylenol for pain or Percocet if needed If you notice excessive bleeding from the leg please immediately call my office or return to the emergency room. Care Plan Goals: Ambulate better status post bypass Health Concerns: Peripheral vascular disease Plan of Treatment: Surveillance follow-up of left femoral to popliteal bypass Assessment: Status post femoral to popliteal bypass
--- NOTE | 2022-06-19 10:05 | MHC.CM.PN ---
Patient has been medically cleared for dc to home today, self care.
[2022-06-19] MEDS: amLODIPine Besylate 10 MG TABLET PO (10:47)
--- NOTE | 2022-06-19 11:16 | MHC.CM.PN ---
Patient has been medically cleared for dc to home today, self care. Patient will dc today to home, via [facility] Shuttle at 1PM. Voucher has been made available to RN.
[2022-06-19 11:41] VITALS: BP 131/60; PULSE 71; RESP 18; TEMP 36.6; O2SAT 96
== END 2022-06-19 13:00 | disposition home or self-care (01) | DRG 169 ==
LOC: HO.SSSA 06:17 → HO.ICU 18:15 → HO.IMC 06-17 10:56
PROVIDERS: Nurse Practitioner; Admitting Provider Surgery Vascular Surgery; PCP Internal Medicine; Visit Provider Surgery Vascular Surgery
PROC: 04CJ0ZZ Extirpation of Matter from Left External Iliac Artery, Open Approach (ICD-10-PCS; principal; 2022-06-16 07:30)
DX: I70.222 Atherosclerosis of native arteries of extremities with rest pain, left leg (principal); F17.210 Nicotine dependence, cigarettes, uncomplicated; J41.0 Simple chronic bronchitis; K21.9 Gastro-esophageal reflux disease without esophagitis; Z20.822 Contact with and (suspected) exposure to COVID-19; Z71.6 Tobacco abuse counseling; Z79.82 Long term (current) use of aspirin; Z79.899 Other long term (current) drug therapy
CPT/HCPCS: 36415; 80048; 85025; 85027; 85610; 85730; 86850; 86900; 86901; 87635; 88304; 94640; 97162; C1768; J0690; J1100; J1170; J2250; J2270; J2370; J2405; J2795; J3010

== ENCOUNTER 2022-10-13 08:26 | Day surgery (SDC) | payer BC, OTHER, SELFPAY ==
[2022-10-10 11:03] VITALS: BMI 23.6
--- NOTE | 2022-10-10 11:55 | HO.ANESPROP2 ---
Documented by User: Suni Bermudez NP 10/10/22 12:02 HPI - Anesthesia Eval Consult details Narrative: 61yo M for Colonoscopy s/p fem-pop bypass 05/2022 with GA-ETT 7.5 Cardiac and Pulmo cleared prior to ETOH: admitted 6-8 beers daily prior to vascular surgery. Planned to cut down. Polycythemia vera - last therapeutic phleb 05/2021 PMFSH Active Problems Active Problems: All Active Problems (Updated 10/10/22 @ 11:06 by Lily Membreno, RN) Thigh abscess (Acute) Annual physical exam (Acute) COPD (chronic obstructive pulmonary disease) (Acute) Tubular adenoma of colon (Acute) Erectile dysfunction (Acute) Polycythemia vera (Acute) HTN (hypertension) (Acute) Encounter for colonoscopy due to history of adenomatous colonic polyps (Acute) Leg edema, right (Acute) Varicose veins of right lower extremity with inflammation (Acute) PAD (peripheral artery disease) (Acute) Tingling of left upper extremity (Acute) Screening for hyperlipidemia (Acute) Preoperative cardiovascular examination (Acute) PVD (peripheral vascular disease) (Acute) Hyperlipidemia (Acute) Smoker (Acute) Dizziness (Acute) Bronchitis (Acute) GERD (gastroesophageal reflux disease) (Acute) Finger injury (Acute) Past Medical History Medical History (Updated 10/10/22 @ 11:06 by Lily Membreno RN) Arthritis Bronchitis COPD (chronic obstructive pulmonary disease) Dizziness ETOH abuse Finger injury Flu GERD (gastroesophageal reflux disease) HTN (hypertension) Hypotension Murmur Polycythemia vera S/P angiogram of extremity Smoker SOB (shortness of breath) Family History Family History Father Diabetes Stroke Hypertension Mother Chronic mental illness Family/Other FH: mental illness Family history of problems with anesthesia: No Surgical History Surgical History History of esophagogastroduodenoscopy History of foot surgery History of lipoma History of removal of cyst History of skin graft Hx of colonoscopy S/P femoral-femoral bypass surgery (06/16/22) History of Problems with Anesthesia: No Social History Social History Household Members: Spouse Housing: House Are you a primary reproductive healthcare assistant to a significant other at home: No Do you presently have visiting nurse or other home services: No Alcohol intake: current Alcohol intake frequency: a few times a month Alcohol type: beer Patient Tobacco Use Status: Current everyday Tobacco user Tobacco use type: Cigarette Cigarette Packs Per Day: 1 Cigarettes Per Day: 20.0 Years Smoked: 40 e-Cigarette/Vaping Use: Never Used Second Hand Smoke Exposure: Yes Use of substances other than those prescribed or required for medical reasons: No Have you been hit, kicked, punched, or otherwise hurt by someone within the past year? If so, by whom?: No Are you DNR?: No Advance Directives: No Advance Directives Information Provided: Yes Advance Directives on File: No service: Yes ([employer]) Current occupational status: employed Current occupation: [employer] Current occupational exposures/hazards: No Cognitive needs: No Hearing needs: No Vision needs: Yes Meds Allergies Allergy/AdvReac Type Severity Reaction Status Date / Time nabumetone AdvReac Unknown green Verified 09/11/22 13:16 stools Home Medications Medication Instructions Recorded Confirmed Last Taken Type ipratropium 20 mcg-albuterol 100 1 puff inhalation Q6H PRN 07/14/22 10/10/22 Unknown History mcg/actuation mist for inhalation Shortness Of Breath (Combivent Respimat) Exam Exam Date and Time: October 10, 2022 1155 Height,Weight and Vital Signs: Height 5 ft 10 in Weight 74.843 kg Pertinent Lab Results Pertinent Lab Results: Laboratory Tests 06/09/22 06/17/22 06/19/22 13:05 05:05 06:15 WBC 8.1 Hgb 12.1 L Hct 35.5 L Plt Count 191 Sodium 137 134 L Potassium 5.4 H D 3.8 Chloride 101 99 Carbon Dioxide 24 BUN 4 L Creatinine 0.62 Narrative Narrative: EKG 05/2022 sinus rhythm at 77/Min; rightward axis; incomplete right bundle-branch block, normal NM and corrected QT. Echo 05/2022 Conclusions: - 1.? Normal LV systolic function with grade 1 diastolic ? dysfunction? 2.? Normal cardiac valvular Doppler? 3.? Normal RV systolic pressure? 4.? No pericardial effusion? ?? NM cardiolite stress test 05/2022 Impression: ? 1.? Myocardial perfusion imaging study shows mild reversible distal anterior/apical defect. Improvement with CT attenuation correction as well as normal contractility suggestive of soft tissue attenuation artifact. Less likely to be from mild ischemia. 2.? Gated LVEF is 54% during stress and 53% during rest. Correlate with echocardiogram. 3. Transient ischemic dilatation not present. ? EKG component of the test reported separately. Assessment and Plan Assessment Anesthesia Assessment: Chart Reviewed Final Anesthetic Review Family History of Problems with Anesthesia: No History of Problems with Anesthesia: No Documented by User: Yessica Small MD 10/13/22 09:29 [facility] Past Medical History Medical History (Updated 10/10/22 @ 11:06 by Lily Membreno, TORIBIO) Arthritis Bronchitis COPD (chronic obstructive pulmonary disease) Dizziness ETOH abuse Finger injury Flu GERD (gastroesophageal reflux disease) HTN (hypertension) Hypotension Murmur Polycythemia vera S/P angiogram of extremity Smoker SOB (shortness of breath) Family History Family History Father Diabetes Stroke Hypertension Mother Chronic mental illness Family/Other FH: mental illness Surgical History Surgical History History of esophagogastroduodenoscopy History of foot surgery History of lipoma History of removal of cyst History of skin graft Hx of colonoscopy S/P femoral-femoral bypass surgery (06/16/22) Social History Social History Household Members: Spouse Housing: House Are you a primary reproductive healthcare assistant to a significant other at home: No Do you presently have visiting nurse or other home services: No Alcohol intake: current Alcohol intake frequency: a few times a month Alcohol type: beer Patient Tobacco Use Status: Current everyday Tobacco user Tobacco use type: Cigarette Cigarette Packs Per Day: 1 Cigarettes Per Day: 20.0 Years Smoked: 40 e-Cigarette/Vaping Use: Never Used Second Hand Smoke Exposure: Yes Use of substances other than those prescribed or required for medical reasons: No Have you been hit, kicked, punched, or otherwise hurt by someone within the past year? 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 occupational exposures/hazards: No Cognitive needs: No Hearing needs: No Vision needs: Yes Meds Allergies Allergy/AdvReac Type Severity Reaction Status Date / Time nabumetone AdvReac Unknown green Verified 09/11/22 13:16 stools Home Medications Medication Instructions Recorded Confirmed Last Taken Type ipratropium 20 mcg-albuterol 100 1 puff inhalation Q6H PRN 07/14/22 10/10/22 Unknown History mcg/actuation mist for inhalation Shortness Of Breath (Combivent Respimat) Exam Airway Mallampati Class: II (Denies any loose or missing) TM Dist: >3cm Neck ROM: Full Heart: rrr Lungs: cta Assessment and Plan Assessment Anesthesia Assessment: Anesthesia Plan Discussed Final Anesthetic Review NPO: Yes ASA Class: III Final Preanesthetic Review: No Changes in Pt Med Stat, Meds/Allgs Chart Reviewed and Consent Obtained/Reviewed Patient Risk: Intermediate Procedure Risk: Intermediate Anesthetic Plan Anesthetic Plan: MAC: Disposition: Standard PACU
[2022-10-13 08:59] VITALS: BP 118/72; PULSE 92; RESP 16; TEMP 36.8; O2SAT 99
[2022-10-13] MEDS: Lactated Ringers 1,000 ML 100 ML IVCONT (09:04)
--- NOTE | 2022-10-13 09:29 | MHC.SHP ---
Pre-Procedural Eval Section A Date of Service: 10/13/22 The patient is an INPATIENT: No The History & Physical has been completed within 30 days and I have reviewed it.: No Section B Chief Complaint: hx of colonic polyps,screening Details of Present Illness: screening, hx of polyps Relevant Family History (Specify if Yes): No Relevant Social History: Tobacco Use Present Medications: see Short Stay Collaborative assessment Medical History: Significant History (Arthritis Bronchitis COPD (chronic obstructive pulmonary disease) Dizziness ETOH abuse Finger injury GERD (gastroesophageal reflux disease) HTN (hypertension) Hypotension Polycythemia vera Smoker) History of Previous Operations: Relevant previous surgery/procedure and date(s) (History of esophagogastroduodenoscopy History of foot surgery History of lipoma History of removal of cyst History of skin graft Hx of colonoscopy) Allergies: Allergies Allergy/AdvReac Type Severity Reaction Status Date / Time nabumetone AdvReac Unknown green Verified 09/11/22 13:16 stools Review of Systems Sugical H&P ROS: Negative: Constitution, Cardiovascular, Respiratory and Gastrointestinal Exam Surgical H&P Exam: Normal: Heart, Normal: Lungs, Normal: Extremities and Normal: Abdomen Plan Diagnosis/Plan: Unchanged I have reviewed the history and physical and performed a pertinent physical examination on my patient. No changes have occurred unless specified. Time Spent With Patient Time: Total time managing care of this patient today ____ minutes.
--- NOTE | 2022-10-13 09:37 | P.BOP_ITS ---
Brief Operative Note Date of Service: 10/13/22 Pre-op diagnosis: screening, hx of colon polyps Post-op diagnosis: other (Colon polyps, diverticulosis, hemorrhoids) Procedure: COLONOSCOPY TO CECUM WITH SNARE POLYPECTOMY Surgeon: Chele Keith MD Anesthesia: MAC Was an Internal Control Analyst used for this Procedure?: No Estimated blood loss (mL): 0 Pathology: other (A:Ascending colon polyp B: polyp in rectum) Condition: stable Disposition: PACU
--- NOTE | 2022-10-13 09:37 | P.OP_ITS ---
Operative Note Operative Note Date of Service: 10/13/22 Narrative: Pre-op diagnosis: screening, hx of colon polyps Post-op diagnosis:?other (Colon polyps, diverticulosis, hemorrhoids) Surgeon: Chele Keith MD Anesthesia:?MAC COLONOSCOPY TILL CECUM WITH Consent: Indications for the procedure and potential complications of bleeding, perforation, reaction to medications and missed diagnosis were discussed with the patient and informed consent was obtained. Instrument: Olympus PCF H 190 L variable stiffness pediatric colonoscope Monitoring: Vital signs and clinical assessment, intermittent blood pressure monitoring, continuous EKG monitoring, Pulse oximetry and Carbon Dioxide monitoring were done throughout the procedure. Colon withdrawl time was 26 minutes. Procedure: The patient was placed in the left lateral decubitis position and pre-procedure medications were administered. After a digital rectal examination of the ano-rectum, the video colonoscope was inserted into the rectum and advanced through the colon to the cecum. The colonoscope was slowly withdrawn in a retrograde panoramic fashion and the colon mucosa was carefully examined including a retroflexed view of the rectum. Findings and interventions are described below. Procedure Difficulty: There was narrowing with a sharp turn in the sigmoid colon at 30 - 35 cms which was navigated with some difficulty Findings: Terminal Ileum: Not evaluated Cecum: Normal Ascending Colon: A 2 cms flat polyp in the proximal AC - raised with 5 cc of normal saline and removed with a hot snare. Polypectomy site was marked with Stephanie ink Transverse Colon: Normal Descending Colon: Moderate diverticulosis Sigmoid Colon: Moderate diverticulosis Rectum: A 9 to 10 mm sessile polyp removed with a cold snare Ano-rectum: Moderate internal hemorrhoids Colon preparation: Good after some irrigation Impression and Post Procedure Diagnosis: Colonoscopy Findings: One large and one medium sized polyps removed Moderate diverticulosis seen in the left colon Moderate hemorrhoids on retroflexed exam. Plan: Await pathology results Patient has an appointment on 10/31/22 in the GI Clinic with ILA Norton. Repeat Colonoscopy interval based on path results - in 2 years if AC polyp is adenomatous (to check polypectomy site) and 5 years if polyps are hyperplastic (hx of adenomatous colon polyps). Above findings were reviewed with the patient and colon polyps and diverticu losis handouts were given in the discharge area
[2022-10-13 10:22] VITALS: BP 86/53; PULSE 71; RESP 16; TEMP 36.3; O2SAT 95
[2022-10-13 10:37] VITALS: BP 112/67; PULSE 78; RESP 16; TEMP 36.3; O2SAT 97
== END 2022-10-13 10:58 | disposition home or self-care (01) ==
PROVIDERS: PCP Internal Medicine Medical Oncology; Visit Provider Internal Medicine Gastroenterology
PROC: 0DJD8ZZ Inspection of Lower Intestinal Tract, Via Natural or Artificial Opening Endoscopic (ICD-10-PCS; CPT 45378; principal; 2022-10-13 09:30)
DX: Z12.11 Encounter for screening for malignant neoplasm of colon (principal); Z86.010 Personal history of colon polyps; D12.2 Benign neoplasm of ascending colon; K62.1 Rectal polyp; K57.30 Diverticulosis of large intestine without perforation or abscess without bleeding; K64.8 Other hemorrhoids; K21.9 Gastro-esophageal reflux disease without esophagitis; I10 Essential (primary) hypertension; D45 Polycythemia vera; I95.9 Hypotension, unspecified; J44.9 Chronic obstructive pulmonary disease, unspecified; R42 Dizziness and giddiness; Z79.51 Long term (current) use of inhaled steroids; Z79.82 Long term (current) use of aspirin; Z88.8 Allergy status to other drugs, medicaments and biological substances; F10.10 Alcohol abuse, uncomplicated; F17.210 Nicotine dependence, cigarettes, uncomplicated
CPT/HCPCS: 45385; 88305

== ENCOUNTER 2022-11-11 14:58 | Outpatient (REF) | payer BC, OTHER, SELFPAY ==
--- NOTE | ~2022-11-11 | US_ITS ---
EXAMINATION: NONINVASIVE ASSESSMENT OF THE ARTERIES OF BOTH LOWER EXTREMITIES CLINICAL INFORMATION: Peripheral vascular disease. COMPARISON: 04/07/2022. TECHNIQUE: Segmental ankle pulse volume recording, pressure measurement at the ankle and ankle brachial indices were obtained of the lower extremity arterial system bilaterally. In addition, bilateral lower extremity duplex ultrasound was performed with velocity measurements and waveform analysis in the common femoral arteries, profunda femoris arteries, proximal mid and distal superficial femoral arteries, popliteal arteries and tibial vessels. This study was performed at rest only. FINDINGS: a) AT REST: The ankle-brachial indices are: Right 0.87 (prior 0.97) and left 0.74 (prior 0.62). >0.97-1.25 = normal - no significant arterial disease. 0.75-0.96 = mild peripheral arterial disease. 0.5-0.74 = moderate peripheral arterial disease. <0.50 = severe peripheral arterial disease 2. Segmental pressure at ankle: Decreased bilaterally, left greater than right. 3. PVR waveform at ankle: Slightly blunted bilaterally. 4. Duplex exam. Velocities in cm/sec and phasicity as well as the presence of plaque are reported below. RIGHT LEG: [id number] plaque is present. Multiphasic flow is present on the right to the level of the distal SFA where flow becomes monophasic with the exception of the popliteal artery where there is biphasic flow. Common Femoral: 242 Profunda Femoris: 159 Proximal SFA: 99 Mid SFA: 81 Distal SFA: 108 Popliteal: 39 Tibial: 66 LEFT LEG: Since the prior study there's been a femoropopliteal bypass graft present which is widely patent. Monophasic flow seen in the common femoral and graft with monophasic flow noted in the distal popliteal and tibial outflow vessels. Common Femoral: 96 Profunda Femoris: 50 Proximal SFA: Occluded Mid SFA: Occluded Distal SFA: Occluded Popliteal: 51 Tibial: 31 Bypass graft: 2 femoropopliteal bypass grafts seen with normal velocities throughout with a velocity of 95 at the proximal anastomosis and 58 at the distal anastomosis. US/US arterial duplex LE BI IMPRESSION: 1. On the right, there is evidence of mild peripheral vascular disease with multiphasic flow to the level of the distal SFA with monophasic flow noted in the exception of the popliteal artery. 2. On the left, the femoropopliteal bypass graft is widely patent with an KAI increased from 0.62-0.74 since the prior.
== END 2022-11-11 14:59 | disposition home or self-care (01) ==
LOC: HO.US 14:58
PROVIDERS: Visit Provider Surgery Vascular Surgery
DX: I70.213 Atherosclerosis of native arteries of extremities with intermittent claudication, bilateral legs (principal)
CPT/HCPCS: 93923; 93925

== ENCOUNTER → 2022-11-13 14:13 | Outpatient (BNVA) | payer BC, OTHER, SELFPAY | PROVIDERS: PCP Internal Medicine Medical Oncology; Visit Provider Internal Medicine | DX: Z13.89 Encounter for screening for other disorder (principal) ==

== ENCOUNTER → 2022-11-20 12:30 | Outpatient (BNVA) | payer BC, OTHER, SELFPAY | PROVIDERS: PCP Internal Medicine Medical Oncology; Visit Provider Physician Assistant | DX: Z13.89 Encounter for screening for other disorder (principal) ==

== ENCOUNTER 2022-12-12 14:56 | Outpatient (REF) | payer BC, OTHER, SELFPAY ==
--- NOTE | 2022-12-12 16:03 | PFT_ITS ---
FLOWS: 1. FEV1 53% of predicted at 1.90 L. 2. FVC 79% of predicted at 3.76 L. 3. FEV1 to FVC ratio of 0.50. 4. Positive bronchodilator response. LUNG VOLUMES: 1. Total lung capacity 113% of predicted at 7.94 L. 2. Residual volume 185% of predicted at 4.20 L. 3. Slow vital capacity 78% of predicted at 3.74 L. 4. Expiratory reserve volume 56% of predicted at 0.78 L. 5. Diffusion capacity is mildly decreased. IMPRESSION: Moderate to severe obstructive ventilatory defect with positive bronchodilator response. Increased residual volume suggests air trapping. Decreased diffusion capacity suggests emphysema. Luís Song MD AP/MODL / [id number]
== END 2022-12-12 14:57 | disposition home or self-care (01) ==
LOC: HO.RESP 14:56
PROVIDERS: PCP Internal Medicine Medical Oncology; Visit Provider Internal Medicine
DX: J41.0 Simple chronic bronchitis (principal); F17.200 Nicotine dependence, unspecified, uncomplicated
CPT/HCPCS: 94060; 94727; 94729

== ENCOUNTER → 2022-12-30 14:57 | Outpatient (BNVA) | payer BC, OTHER, SELFPAY | PROVIDERS: PCP Internal Medicine Medical Oncology; Visit Provider Internal Medicine | DX: Z13.89 Encounter for screening for other disorder (principal) ==

== ENCOUNTER → 2023-01-13 13:55 | Outpatient (BNVA) | payer BC, OTHER, SELFPAY | PROVIDERS: PCP Internal Medicine Medical Oncology; Visit Provider Surgery Vascular Surgery | DX: Z13.89 Encounter for screening for other disorder (principal) ==

== ENCOUNTER 2023-02-27 14:33 | Outpatient (REF) | payer BC, OTHER, SELFPAY ==
--- NOTE | ~2023-02-27 | CT_ITS ---
EXAMINATION: LUNG CANCER SCREENING CT CHEST WITHOUT CONTRAST CLINICAL INFORMATION: Current smoker with 45 pack year history COMPARISON: None TECHNIQUE: Multidetector volumetric CT imaging of the chest was obtained noncontrast using low dose screening CT technique. Axial thin section 0.625 mm reformations in soft tissue and lung windows were obtained. Sagittal and coronal reformations were obtained. Axial MIP images were also created and reviewed. This CT examination was performed using dose optimization techniques as appropriate, variously including the following: *Automated exposure control *Adjustment of mA and/or kV according to patient size (this includes techniques or standardized protocols for targeted exams where dose is matched to indication/reason for exam; i.e. extremities or head) *Use of iterative reconstruction technique TOTAL EXAM DLP: 53.11 mGy-cm FINDINGS: PULMONARY NODULES (see sanders images): No suspicious pulmonary nodules. LUNGS / PLEURA: Mild emphysema. Diffuse moderate bronchial wall thickening without bronchiectasis. No pleural effusion or pneumothorax. MEDIASTINUM / DOMINIC: Heart normal in size without pericardial effusion. Great vessels normal caliber. No lymphadenopathy. Coronary calcifications present. Imaged thyroid gland unremarkable. CHEST WALL / AXILLA: Unremarkable. UPPER ABDOMEN: Included portions grossly unremarkable allowing for limitations in technique. OSSEOUS STRUCTURES: No acute or suspicious osseous abnormalities. CT/CT lung screening IMPRESSION: * No evidence of pulmonary malignancy. * Mild emphysema and diffuse moderate bronchial wall thickening. ASSESSMENT: Lung RADS category: 1. Negative. No nodules or definitely benign nodules. Continue annual screening with low-dose CT in 12 months. Probability of malignancy less than 1%. RECOMMENDATION: Follow up low dose CT chest in 1 year.
== END 2023-02-27 14:34 | disposition home or self-care (01) ==
LOC: HO.CT 14:33
PROVIDERS: PCP Internal Medicine Medical Oncology; Visit Provider Physician Assistant Medical
DX: Z12.2 Encounter for screening for malignant neoplasm of respiratory organs (principal); F17.210 Nicotine dependence, cigarettes, uncomplicated
CPT/HCPCS: 71271; G0296

== ENCOUNTER 2023-03-23 09:02 | Outpatient (REF) | payer BC, OTHER, SELFPAY ==
[2023-03-23 09:25] LABS: MANUAL DIFF FLAG NO
[2023-03-23 09:29] LABS: Basophils Absolute Auto 0.1 X10*3/uL (0.0-0.2); Basophils Percent Auto 1.6 % (0-2); Eosinophils Absolute Auto 0.1 X10*3/uL (0.0-0.4); Eosinophils Percent Auto 1.9 % (0-4); Hematocrit 43.7 % (42.0-52.0); Hemoglobin 14.6 g/dl (14.0-18.0); Imm Gran Abs Auto 0.02 X10*3/uL (0.00-0.03); Imm Gran Pct Auto 0.5 % (0.0-0.4); Lymphocytes Absolute Auto 1.2 X10*3/uL (1.2-4.9); Lymphocytes Percent Auto 32.3 % (20-40); Mean Corpuscular HGB Conc 33.4 g/dl (31.0-36.0); Mean Corpuscular Hemoglobin 29.1 pg (27.0-33.0); Mean Corpuscular Volume 87.1 fL (80.0-98.0); Mean Platelet Volume 8.9 fL (9.4-12.4); Monocytes Absolute Auto 0.6 X10*3/uL (0.1-1.2); Monocytes Percent Auto 16.3 % (2-11); Neutrophils Absolute Auto 1.7 x10*3/uL (2.0-8.3); Neutrophils Percent Auto 47.4 % (45-73); Platelet Count 233 X10*3/uL (160-400); Red Blood Count 5.02 X10*6/uL (4.60-5.80); Red Cell Distribution Width 14.7 % (11.0-16.0); White Blood Count 3.7 X10*3/uL (4.8-10.8)
[2023-03-23 10:24] LABS: Uric Acid 4.9 mg/dL (3.4-7.0)
[2023-03-23 12:02] LABS: Prostate Specific Antigen 0.64 ng/mL (<0.05-4.0)
[2023-03-23 12:04] LABS: Alanine Aminotransferase 23 U/L (0-40); Albumin Level 4.3 g/dL (3.5-5.0); Alkaline Phosphatase 74 U/L (39-117); Anion Gap 14 (12-20); Aspartate Amino Transferase 38 U/L (5-37); Bilirubin Total 0.6 mg/dL (0.0-1.0); Blood Urea Nitrogen 4 mg/dL (9-16); Calcium 10.1 mg/dL (8.4-10.2); Carbon Dioxide 25 mmol/L (22-29); Chloride 103 mmol/L (96-108); Cholesterol 192 mg/dL; Estimated Glomerular Filt Rate > 60; Glucose Random 86 mg/dL (60-115); HDL Cholesterol 80 mg/dL; LDL Cholesterol Calculated 96 mg/dl; Potassium 4.8 mmol/L (3.3-5.1); Sodium 137 mmol/L (135-145); Total Protein 7.9 g/dL (6.5-8.0); Triglycerides 81 mg/dL
== END 2023-03-23 09:03 | disposition home or self-care (01) ==
LOC: HO.LAB 09:02
PROVIDERS: Internal Medicine; Visit Provider Internal Medicine Medical Oncology
DX: Z12.5 Encounter for screening for malignant neoplasm of prostate (principal); I10 Essential (primary) hypertension; M10.9 Gout, unspecified; N40.0 Benign prostatic hyperplasia without lower urinary tract symptoms; E78.5 Hyperlipidemia, unspecified; P29.9 Cardiovascular disorder originating in the perinatal period, unspecified; I73.9 Peripheral vascular disease, unspecified; F17.200 Nicotine dependence, unspecified, uncomplicated; Z71.6 Tobacco abuse counseling; J44.9 Chronic obstructive pulmonary disease, unspecified; E80.1 Porphyria cutanea tarda; Z79.52 Long term (current) use of systemic steroids
CPT/HCPCS: 36415; 80053; 80061; 82306; 84153; 84550; 85025

== ENCOUNTER 2023-04-24 13:55 | Outpatient (REF) | payer BC, OTHER, SELFPAY | END 2023-04-24 13:56 | disposition home or self-care (01) | LOC: HO.BBR 13:55 | PROVIDERS: PCP Internal Medicine Medical Oncology; Visit Provider Internal Medicine | DX: Z13.89 Encounter for screening for other disorder (principal) ==

== ENCOUNTER 2023-05-27 14:01 | Outpatient (AMB) | payer BC, OTHER, SELFPAY ==
[2023-05-27 14:20] VITALS: BP 130/70; PULSE 96; O2SAT 97; BMI 23.1
--- NOTE | 2023-05-27 14:20 | MHC.OFFVIS ---
Intake Vital Signs 05/27/23 14:20 Height 5 ft 10 in Weight 161 lb BMI 23.1 BP 130/70 Blood Pressure Location Lt brachial Position Sitting Pulse 96 Pulse Source Pulse Oximeter Pulse Oximetry (%) 97 Oxygen Delivery Method Room Air Intake Visit Reasons: Dyspnea Intake Note: pt is here for follow up and states he is the same. PT NEEDS REFILL ON SYMBICORT Office Assistant Required: No Allergies nabumetone Adverse Reaction (Unknown, Verified 05/27/23 14:35) green stools Medication List - Last Reconciled 05/27/23 by Natalie Lino MD amlodipine 10 mg PO DAILY 90 days aspirin (Adult Aspirin Regimen) 81 mg PO DAILY ibuprofen 800 mg PO Q8H PRN 90 days ipratropium-albuterol 20-100 mcg/actuation (Combivent Respimat) 1 puff inhalation Q6H 90 days methylcellulose (laxative) (Citrucel) 500 mg PO DAILY pantoprazole 40 mg PO DAILY sildenafil 100 mg PO DAILY PRN Symbicort 160-4.5 mcg/actuation (budesonide-formoterol) 2 puffs inhalation BID 90 days NS Do you need a note to return to daycare/school/sports/work: No HPI Dyspnea HPI Details 62 YEARS OLD GENTLEMAN, HERE FOR 6 MONTHS FOLLOW-UP FOR HIS COPD. DOING VERY WELL, LONG HE IS ON SYMBICORT, HE GETS SOME SHORTNESS OF BREATH ON WALKING AROUND OR CLIMBING STAIRS. COUGH IS MINIMAL. HARDLY NEEDS TO USE COMBIVENT. UNFORTUNATELY STILL SMOKING 15-20 CIGARETTES A DAY, TRYING TO CUT DOWN SLOWLY. HE IS USING CHANTIX PRESCRIBED BY HIS PCP. [facility] Medical History Arthritis COPD (chronic obstructive pulmonary disease) ETOH abuse GERD (gastroesophageal reflux disease) Hereditary hemochromatosis HTN (hypertension) Murmur Nicotine dependence, cigarettes, uncomplicated Porphyria cutanea tarda SOB (shortness of breath) Tubular adenoma of colon Surgical History History of colonoscopy History of esophagogastroduodenoscopy History of femoropopliteal bypass History of foot surgery History of lipoma History of removal of cyst History of skin graft S/P angiogram of extremity Family History Father Diabetes Stroke Hypertension Mother Chronic mental illness Family/Other FH: mental illness Social History Household Members: Spouse Housing: House Are you a primary care professionals to a significant other at home: No Do you presently have visiting nurse or other home services: No Alcohol intake: current Alcohol intake frequency: a few times a month Alcohol type: beer Patient Tobacco Use Status: Current everyday Tobacco user Tobacco use type: Cigarette Cigarette Packs Per Day: 1 Cigarettes Per Day: 15 Years Smoked: (current smoker, onset 17yo, 1ppd x 45yrs, 45pyh) e-Cigarette/Vaping Use: Never Used Second Hand Smoke Exposure: Yes service: Yes ([employer]) Current occupational status: employed 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 occupational exposures/hazards: No Cognitive needs: No Hearing needs: No Vision needs: Yes Review of Systems Const All systems reviewed & are unremarkable except as noted in HPI and below Eyes Reports no additional complaints ENT Reports no additional complaints Card Denies chest pain, Denies irregular heart rhythm and Denies leg edema Resp Reports as per HPI GI Reports no additional complaints Reports erectile dysfunction Musc Reports no additional complaints Skin/Breast Reports system reviewed and no additional complaints, except as documented Neuro Reports no additional complaints Psych Reports no additional complaints Endo Reports no additional complaints Terrell/Lymph Reports other (h/o polycythemia ) Physical Exam Vital Signs: Last Vital Signs Pulse 96 05/27/23 14:20 BP 130/70 05/27/23 14:20 Pulse Ox 97 05/27/23 14:20 Oxygen Delivery Method Room Air 05/27/23 14:20 BMI result Body Mass Index 23.1 Const General: comfortable, no acute distress, alert and awake Orientation/consciousness: patient oriented x3 HEENT Head: Yes normal to inspection General nose exam: No nasal polyps present and No nasal discharge present Face and sinus: Yes sinuses nontender Mouth: oropharynx normal Throat: Yes posterior oropharynx normal Eyes General: appearance normal, both eyes and all related structures Neck Neck: Yes normal visual inspection, Yes no lymphadenopathy, Yes trachea midline and Yes no JVD Thyroid: Thyroid normal Chest Chest palpation & inspection: normal inspection of the chest, normal palpation of entire chest wall and no tenderness Resp Other: Percussion note resonant, breath sounds are distant with prolonged expiratory phase. LUNGS ARE CLEAR AND NO WHEEZES OR CREPITATIONS ARE HEARD TODAY. Cardio Palpation: normal PMI Rate: regular rate Rhythm: regular rhythm Heart sounds: no gallops and no murmurs GI Palpation (GI): Soft to palpation, nontender, No hepatosplenomegaly present and no masses Auscultation: normal bowel sounds Back/Spine/Pelvis Thoracic/Lumbar Spine: thoracic and lumbar spine normal to inspection Skin General skin exam: no rashes or lesions noted Neuro General: patient oriented x3 and no focal motor deficits Cranial nerves: Yes CN's II-XII intact bilaterally Extrem General: Yes normal to inspection, Yes no clubbing, cyanosis or edema and Yes no calf tenderness Psych Appearance: grossly normal and well kempt Speech and movement: Normal speech and movement present Assessment & Plan Assessment & Plan (1) Nicotine dependence, cigarettes, uncomplicated: Comment: (current smoker, onset 17yo, 1ppd x 45yrs, 45pyh) , has cut down to 15 cigarettes a day . Advised to keep on cutting down the number of cigarettes. Code(s): F17.210 - Nicotine dependence, cigarettes, uncomplicated (2) COPD (chronic obstructive pulmonary disease): Comment: Moderate COPD, confirmed by PFT), well controlled at this time. TX: Continue SYMBICORT 160-4.52 PUFFS B.I.D. USE COMBIVENT RESPIMAT 1 INHALATION Q 6 HRS ONLY PRN ( COUGH OR WHEEZING ) Code(s): J44.9 - Chronic obstructive pulmonary disease, unspecified Qualifiers: COPD type: chronic bronchitis Chronic bronchitis type: simple Qualified Code(s): J41.0 - Simple chronic bronchitis Medications: Refilled Symbicort 160-4.5 mcg/actuation (budesonide-formoterol) 2 puffs inhalation BID 90 days 30.6 grams 5RF COPD/ASTHMA NS Coding Level of Care Code Est Pt Level 3 (39218) Diagnoses Nicotine dependence, cigarettes, uncomplicated F17.210 COPD (chronic obstructive pulmonary disease) J41.0 COPD type: chronic bronchitis Chronic bronchitis type: simple
== END 2023-05-27 14:40 | disposition home or self-care (01) ==
PROVIDERS: PCP Internal Medicine Medical Oncology; Visit Provider Internal Medicine
DX: F17.210 Nicotine dependence, cigarettes, uncomplicated (principal); J41.0 Simple chronic bronchitis
CPT/HCPCS: 99213

== ENCOUNTER → 2023-05-27 14:01 | Outpatient (BNVA) | payer BC, OTHER, SELFPAY | PROVIDERS: PCP Internal Medicine Medical Oncology; Visit Provider Internal Medicine ==

== ENCOUNTER 2023-06-09 13:52 | Outpatient (AMB) | payer BC, OTHER, SELFPAY ==
[2023-06-09 13:59] VITALS: BP 120/60; PULSE 83; BMI 23.5
--- NOTE | 2023-06-09 13:59 | A.OFFVIS_ITS ---
Intake Vital Signs 06/09/23 13:59 Height 5 ft 10 in Weight 164 lb 0.383 oz BMI 23.5 BP 120/60 Blood Pressure Location Lt brachial Position Sitting Pulse 83 Intake Visit Reasons: 6 month f/u Intake Note: 6 month follow up w/ EKG Track [employer] Supervisor Required: No Accompanied by: Self / Same As Patient Allergies nabumetone Adverse Reaction (Unknown, Verified 06/09/23 14:00) green stools Medication List - Last Reconciled 06/09/23 by Carlos A Fletcher MD amlodipine 10 mg PO DAILY 90 days aspirin (Adult Aspirin Regimen) 81 mg PO DAILY ibuprofen 800 mg PO Q8H PRN 90 days ipratropium-albuterol 20-100 mcg/actuation (Combivent Respimat) 1 puff inhalation Q6H 90 days methylcellulose (laxative) (Citrucel) 500 mg PO DAILY pantoprazole 40 mg PO DAILY sildenafil 100 mg PO DAILY PRN Symbicort 160-4.5 mcg/actuation (budesonide-formoterol) 2 puffs inhalation BID 90 days NS HPI HPI Comments History of Present Illness Details Sid returns for follow-up. Last year, he was seen regarding preoperative risk stratification for vascular surgery. He underwent left femoral popliteal bypass and states that he did well. No new complaints. No angina or in fact anything cardiac sounding. Long-term smoker and still smokes. No history of any coronary disease myocardial infarction. Overall, doing well no new complaints. [facility] Medical History (Updated 06/09/23 @ 14:30 by Carlos A Fletcher MD) Porphyria cutanea tarda Hereditary hemochromatosis Nicotine dependence, cigarettes, uncomplicated Murmur SOB (shortness of breath) ETOH abuse Arthritis GERD (gastroesophageal reflux disease) HTN (hypertension) COPD (chronic obstructive pulmonary disease) Tubular adenoma of colon Surgical History History of femoropopliteal bypass History of colonoscopy S/P angiogram of extremity History of esophagogastroduodenoscopy History of lipoma History of skin graft History of removal of cyst History of foot surgery Family History Father Diabetes Stroke Hypertension Mother Chronic mental illness Family/Other FH: mental illness Social History Household Members: Spouse Housing: House Are you a primary caregivers non medical to a significant other at home: No Do you presently have visiting nurse or other home services: No Alcohol intake: current Alcohol intake frequency: a few times a month Alcohol type: beer Patient Tobacco Use Status: Current everyday Tobacco user Tobacco use type: Cigarette Cigarette Packs Per Day: 1 Cigarettes Per Day: 15 Years Smoked: (current smoker, onset 17yo, 1ppd x 45yrs, 45pyh) e-Cigarette/Vaping Use: Never Used Second Hand Smoke Exposure: Yes service: Yes ([employer]) Current occupational status: employed 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 occupational exposures/hazards: No Cognitive needs: No Hearing needs: No Vision needs: Yes Review of Systems Const Denies weakness ENT Denies dizziness Card Denies chest pain, Denies chest pain with activity, Denies syncope, Denies rapid heart rate, Denies pedal edema, Denies edema, Denies leg edema, Denies lightheadedness, Denies palpitations, Denies dyspnea, Denies dyspnea on exertion and Denies orthopnea Resp Denies cough, Denies dyspnea and Denies dyspnea on exertion GI Denies hematochezia and Denies change in stool character Musc Denies abnormal gait, Denies muscle cramps, Denies muscle weakness, Denies numbness, Denies radiating pain into limb and Denies tingling Neuro Denies abnormal gait, Denies dizziness, Denies syncope, Denies numbness, Denies tingling and Denies weakness Endo Denies palpitations Physical Exam Vital Signs: Last Vital Signs Pulse 83 06/09/23 13:59 BP 120/60 06/09/23 13:59 BMI result Body Mass Index 23.5 Const General: comfortable and no acute distress Orientation/consciousness: patient oriented x3 HEENT Other: Unremarkable Head: Yes normal to inspection Neck Neck: Yes normal visual inspection Chest Chest palpation & inspection: normal inspection of the chest Resp Auscultation: clear to auscultation bilaterally Cardio Palpation: normal PMI Heart sounds: S1 normal heart sound present, S2 normal heart sound present, no gallops, no murmurs and no rubs GI Palpation (GI): Soft to palpation Back/Spine/Pelvis Other: unremarkable Skin General skin exam: no rashes or lesions noted Neuro General: patient oriented x3 Extrem General: Yes normal to inspection Psych Mental Status: mental status grossly normal Office Procedures EKG Details: EKG with sinus rhythm at 83/Min; rightward axis; no significant ST-T changes and otherwise unremarkable. [place] [address]-[id number], Complete Assessment & Plan Assessment & Plan (1) PAD (peripheral artery disease): Comment: 06/16/2022 - left femoral to popliteal bypass Code(s): I73.9 - Peripheral vascular disease, unspecified (2) Nicotine dependence, cigarettes, uncomplicated: Comment: (current smoker, onset 17yo, 1ppd x 45yrs, 45pyh) , has cut down to 15 cigarettes a day . Advised to keep on cutting down the number of cigarettes. Code(s): F17.210 - Nicotine dependence, cigarettes, uncomplicated (3) HTN (hypertension): Code(s): I10 - Essential (primary) hypertension Qualifiers: Hypertension type: primary hypertension Qualified Code(s): I10 - Essential (primary) hypertension Plan Echocardiogram unremarkable. In the perfusion imaging mild reversible distal anterior/apical defect but there was improvement with CT attenuation correction and normal contractility. Hence thought to be more from soft tissue attenuation artifact and less likely from mild ischemia. Chest CT scan does show some coron [place]ico artery calcification. Overall, he does not have any angina or other concerning symptoms. Can remain on aspirin. Recommend that he start statins. May start Crestor 20 mg daily and follow-up lipids in a few months. He is agreeable. Continue amlodipine for hypertension. Also discussed about smoking cessation especially considering the fact he has established vascular disease. Ideally must quit. Check carotids for any stenosis. Orders: Orders Lipid Panel 3 Months E78.5 - Hyperlipidemia, unspecified US carotid duplex BI Today I65.23 - Occlusion and stenosis of bilateral carotid arteries Liver Panel 3 Months E78.5 - Hyperlipidemia, unspecified, I25.10 - Atherosclerotic heart disease of [place] coronary artery without angina pectoris Medications: New rosuvastatin (Crestor) 20 mg PO DAILY 90 tabs 3RF Coding Level of Care Code Est Pt Level 4 (80025) Diagnoses PAD (peripheral artery disease) I73.9 Nicotine dependence, cigarettes, uncomplicated F17.210 Primary hypertension I10 Hypertension type: primary hypertension CPT Codes EKG - CPT: 86505-[id number], Complete ([id number])
== END 2023-06-09 14:23 | disposition home or self-care (01) ==
PROVIDERS: PCP Internal Medicine Medical Oncology; Referring Provider Internal Medicine Medical Oncology; Visit Provider Internal Medicine
DX: I73.9 Peripheral vascular disease, unspecified (principal); F17.210 Nicotine dependence, cigarettes, uncomplicated; I10 Essential (primary) hypertension
CPT/HCPCS: 93010; 99214

== ENCOUNTER → 2023-06-09 13:52 | Outpatient (BNVA) | payer BC, OTHER, SELFPAY | PROVIDERS: PCP Internal Medicine Medical Oncology; Referring Provider Internal Medicine Medical Oncology; Visit Provider Internal Medicine | DX: I73.9 Peripheral vascular disease, unspecified (principal); I10 Essential (primary) hypertension; F17.210 Nicotine dependence, cigarettes, uncomplicated | CPT/HCPCS: 93005 ==

== ENCOUNTER 2023-07-03 16:50 | Outpatient (REF) | payer BC, OTHER, SELFPAY | END 2023-07-03 16:51 | disposition home or self-care (01) | LOC: HO.LNP 16:50 | PROVIDERS: Visit Provider Internal Medicine Medical Oncology | DX: H92.02 Otalgia, left ear (principal) | CPT/HCPCS: 87070; 87077; 87186; 87205 ==

== ENCOUNTER 2023-09-07 13:24 | Outpatient (REF) | payer BC, OTHER, SELFPAY ==
--- NOTE | ~2023-09-07 | US_ITS ---
EXAMINATION: Noninvasive assessment of the bilateral lower extremities with ARTERIAL DUPLEX and ANKLE BRACHIAL INDICES (ABIs). CLINICAL INFORMATION: Peripheral vascular disease TECHNIQUE: Duplex Doppler techniques with waveform analysis and measurement of velocities in the bilateral common femoral, profunda femoris, superficial femoral, popliteal and tibial arteries were performed. Additionally, ankle pulse volume recordings, ankle pressure measurements and ankle brachial indices were obtained of the lower extremity arterial system bilaterally. The study was performed only at rest. COMPARISON: 11/11/2022 FINDINGS: DIRECT DUPLEX DOPPLER FINDINGS: RIGHT LEG: Common femoral artery: 122 cm/s, phasicity: Biphasic Profunda femoris artery: 118 cm/s, phasicity: Biphasic Superficial femoral artery (proximal): 72.0 cm/s, phasicity: Biphasic Superficial femoral artery (mid): 57.2 cm/s, phasicity: Biphasic Superficial femoral artery (distal): Short segment occlusion with adjacent collateral vessels. Reconstituted flow is seen in the distal segment with dampened monophasic waveform and decreased velocity measuring 20.9 cm/s Popliteal artery: 34.5 cm/s, phasicity: Monophasic Posterior tibial artery: 12.8 cm/s, phasicity: Monophasic Peroneal artery: 19.2 cm/s, phasicity: Monophasic Anterior tibial artery: 18.0 cm/s, phasicity: Monophasic Dorsalis pedis artery: 19.0 cm/s, phasicity:Monophasic LEFT LEG: Common femoral artery: 49.2 cm/s, phasicity: Monophasic Profunda femoris artery: 46.7 cm/s, phasicity: Monophasic Superficial femoral artery (proximal): Occluded Superficial femoral artery (mid): Occluded Superficial femoral artery (distal): Occluded Femoropopliteal bypass graft is occluded, which was previously patent on the prior ultrasound Popliteal artery: 18.8 cm/s, phasicity: Monophasic Posterior tibial artery: 11.6 cm/s, phasicity: Monophasic Peroneal artery: 14.0 cm/s, phasicity: Monophasic Anterior tibial artery: 11.8 cm/s, phasicity: Monophasic Dorsalis pedis artery: 10.8 cm/s, phasicity: Monophasic ANKLE-BRACHIAL INDEX: Right: 0.73, previously 0.87? Left: 0.55, previously 0.74 ANKLE PRESSURES: Right: PT 101, DP 94 Left: PT?76, DP?73 ANKLE PVR WAVEFORMS: Right: Abnormal Left: Abnormal US/US arterial duplex LE BI IMPRESSION: Right leg: Mildly decreased ankle brachial index which is stable. Short segment occlusion of the distal superficial femoral artery with reconstituted monophasic flow within the popliteal artery and below-knee runoff as described above. No significant change compared to the prior exam. Left leg: Moderately decreased ankle brachial index which is significantly decreased compared to the prior exam. Chronic occlusion of the [place] superficial femoral artery. There is interval occlusion of the femoropopliteal bypass graft. Reconstituted flow seen in the popliteal artery with severely dampened but patent arterial waveforms seen in the below-knee runoff vessels. KAI Reference: - >1.4 = calcified vessels - 0.9 - 1.4 = normal - no significant arterial disease - 0.7 - 0.89 = mild peripheral arterial disease - 0.51 - 0.69 = moderate peripheral arterial disease - ? 0.50 = severe peripheral arterial disease - < .30 = critical arterial disease EXAMINATION: US RETROPERITONEAL LIMITED (AORTA) CLINICAL INFORMATION: Peripheral vascular disease. COMPARISON: None available. TECHNIQUE: Silverman-scale, color Doppler and spectral Doppler evaluation of the abdominal aorta. FINDINGS: The aorta is normal. The measurements of the aorta in maximum AP and transverse dimensions respectively are as follows: Proximal: 3.0 x 2.2 cm. Mid: 2.1 x 2.0 cm. Distal: 2.4 x 2.3 cm. PSV: 56.0 cm/s. The duplex Doppler of the bilateral iliac arteries: Right Common Iliac Artery: 94.3 cm/s, triphasic. Right external iliac artery: 317 cm/s, triphasic Left Common Iliac Artery: 75.7 cm/s, monophasic. Left external iliac artery: 184 cm/s, monophasic IMPRESSION: Aorta is normal in caliber with normal duplex waveforms. Elevated velocity seen in the bilateral external iliac arteries, right greater than left consistent with moderate to severe stenosis.
--- NOTE | ~2023-09-07 | US_ITS ---
EXAMINATION: US EXTRACRANIAL CAROTID DUPLEX, BILATERAL CLINICAL INFORMATION: Carotid stenosis. COMPARISON: None available. TECHNIQUE: Real-time ultrasound and Doppler techniques (integrating B-mode 2-D vascular images, Doppler spectral analysis and color-flow Doppler imaging) were utilized to interrogate the extracranial carotid arteries, the vertebral arteries and proximal subclavian arteries bilaterally. The degree of stenosis is determined by criteria similar to NASCET. FINDINGS: Right Side: 1. There is mild atherosclerotic plaque seen in the bifurcation/proximal ICA region. 2. The common carotid artery PSV proximally is 94 cm/s and distally 72 cm/s. 3. The proximal internal carotid artery velocities are 64 cm/s systolic and 24 cm/s diastolic. 4. The proximal external carotid artery PSV is 89 cm/s. 5. The vertebral artery shows antegrade flow. 6. The subclavian artery waveforms are normal. Left Side: 1. There is mild atherosclerotic plaque seen in the bifurcation/proximal ICA region. 2. The common carotid artery PSV proximally is 117 cm/s and distally 75 cm/s. 3. The proximal internal carotid artery velocities are 81 cm/s systolic and 35 cm/s diastolic. 4. The proximal external carotid artery PSV is 114 cm/s. 5. The vertebral artery shows antegrade flow. 6. The subclavian artery waveforms are normal. US/US carotid duplex BI IMPRESSION: 1. RIGHT: Minimal, non-hemodynamically significant stenosis of the proximal right internal carotid artery corresponding to a 0-49% stenosis by velocity criteria. 2. LEFT: Minimal, non-hemodynamically significant stenosis of the proximal left internal carotid artery corresponding to a 0-49% stenosis by velocity criteria.
== END 2023-09-07 13:25 | disposition home or self-care (01) ==
LOC: HO.US 13:24
PROVIDERS: PCP Internal Medicine Medical Oncology; Visit Provider Surgery Vascular Surgery
DX: I65.23 Occlusion and stenosis of bilateral carotid arteries (principal); I73.9 Peripheral vascular disease, unspecified
CPT/HCPCS: 76706; 93880; 93923; 93925

== ENCOUNTER 2023-09-15 11:57 | Outpatient (REF) | payer BC, OTHER, SELFPAY | END 2023-09-15 11:58 | disposition home or self-care (01) | LOC: HO.BBR 11:57 | PROVIDERS: Visit Provider Internal Medicine | DX: Z13.89 Encounter for screening for other disorder (principal) ==

== ENCOUNTER 2023-09-29 15:10 | Outpatient (AMB) | payer BC, OTHER, SELFPAY ==
[2023-09-29 15:13] VITALS: BP 142/80; PULSE 89; O2SAT 97; BMI 24.4
--- NOTE | 2023-09-29 15:13 | MHC.OFFVIS ---
Intake Vital Signs 09/29/23 15:13 09/29/23 15:16 Height 5 ft 10 in Weight 170 lb BMI 24.4 BP 142/80 H 112/72 Blood Pressure Location Rt brachial Lt brachial Position Sitting Sitting Pulse 89 Pulse Source Pulse Oximeter Pulse Oximetry (%) 97 Oxygen Delivery Method Room Air Intake Visit Reasons: Follow Up 09/07 Carotid US Allergies nabumetone Adverse Reaction (Unknown, Verified 09/29/23 15:13) green stools HPI Follow Up 09/07 Carotid US HPI Details 62-year-old gentleman presents for follow-up regarding carotid disease and his left lower extremity. It actually undergone a left fem-pop bypass in May of 2022. He had returned back to work and he has gone on to retire. He reports he was doing fairly well until about 2 months ago where he started to feel some cramping and pain of his leg. He thought it was back related. It has continued to progress to the point where at night he has to stand several times in order to make his legs feel better. He now presents for follow-up with surveillance follow-up. Of note he does continue to smoke about a pack a day. At most he can walk 1 block. [facility] Medical History Porphyria cutanea tarda Hereditary hemochromatosis Nicotine dependence, cigarettes, uncomplicated Murmur SOB (shortness of breath) ETOH abuse Arthritis GERD (gastroesophageal reflux disease) HTN (hypertension) COPD (chronic obstructive pulmonary disease) Tubular adenoma of colon Surgical History History of femoropopliteal bypass History of colonoscopy S/P angiogram of extremity History of esophagogastroduodenoscopy History of lipoma History of skin graft History of removal of cyst History of foot surgery Family History Father Diabetes Stroke Hypertension Mother Chronic mental illness Family/Other FH: mental illness Social History Household Members: Spouse Housing: House Are you a primary child care sitter to a significant other at home: No Do you presently have visiting nurse or other home services: No Alcohol intake: current Alcohol intake frequency: a few times a month Alcohol type: beer Patient Tobacco Use Status: Current everyday Tobacco user Tobacco use type: Cigarette Cigarette Packs Per Day: 1 Cigarettes Per Day: 15 Years Smoked: (current smoker, onset 17yo, 1ppd x 45yrs, 45pyh) e-Cigarette/Vaping Use: Never Used Second Hand Smoke Exposure: Yes service: Yes ([employer]) Current occupational status: employed 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 occupational exposures/hazards: No Cognitive needs: No Hearing needs: No Vision needs: Yes Review of Systems Const All systems reviewed & are unremarkable except as noted in HPI and below Reports no additional complaints ENT Reports Normal hearing present Card Denies chest pain, Denies chest pain at rest, Denies chest pain with activity and Denies pedal edema Resp Denies cough GI Denies abdominal pain Musc Denies abnormal gait, Denies muscle cramps and Denies radiating pain into limb Skin/Breast Denies skin ulcer and Denies wounds Neuro Reports Normal hearing present and Denies abnormal gait Psych Reports no additional complaints Physical Exam Vital Signs: Last Vital Signs Pulse 89 09/29/23 15:13 BP 112/72 09/29/23 15:16 Pulse Ox 97 09/29/23 15:13 Oxygen Delivery Method Room Air 09/29/23 15:13 BMI result Body Mass Index 24.4 Const General: cooperative, healthy appearing and comfortable Orientation/consciousness: oriented to person, oriented to place and oriented to time HEENT Head: Yes normal to inspection Neck Neck: Yes normal visual inspection Carotids: no bruits Chest Chest palpation & inspection: normal inspection of the chest Resp Effort & Inspection: normal respiratory effort and able to speak in complete sentences Auscultation: clear to auscultation bilaterally, no crackles, no rales, no rhonchi and no wheezes Cardio Other: Bilateral DP signals Rate: regular rate Rhythm: regular rhythm Heart sounds: S1 normal heart sound present and S2 normal heart sound present Bruits: no carotid bruits Peripheral pulses: Peripheral pulses 2+ throughout GI Inspection: Yes normal to inspection Skin Wounds: no wounds Hair: normal Neuro General: oriented to person, oriented to place and oriented to time Cranial nerves: Yes CN's II-XII intact bilaterally and Yes Normal hearing present Cognition (Neuro): normal cognition Motor exam (neuro): 5/5 motor strength present throughout Extrem Other: venous exam: No significant superficial varicosities or spider telangiectasias, minimal edema General: No clubbing, No cyanosis and No edema Psych Appearance: grossly normal Mental Status: mental status grossly normal Speech and movement: Normal speech and movement present Results Reviewed Results Reviewed: carotid ultrasound dated 09/07/2023 demonstrates bilateral 0-49% stenosis lower extremity study dated 09/07/2023 demonstrates KAI on the right of 0.73 and on the left of 0.55 left leg occluded fem-pop bypass graft. Written report and images of both studies were reviewed Assessment & Plan Assessment & Plan (1) PAD (peripheral artery disease): Comment: 06/16/2022 - left femoral to popliteal bypass Code(s): I73.9 - Peripheral vascular disease, unspecified Plan: the concern here is that the bypass graft has gone on to occlude. Unfortunately this is not acute in appears to have happened nearly 2 months ago and once again unfortunately he did not report this to us. It has gone on to be nearly a rest pain equivalent as he is standing several times throughout the night. I have taken the liberty of ordering CT angiogram with runoff. it will allow us to better elucidate the degree of disease. Will plan for urgent CT angiogram and subsequent follow-up. Thank you for allowing us to assist in his care. If there are any questions or concerns please do not hesitate to contact us. (2) Bilateral carotid artery stenosis: Code(s): I65.23 - Occlusion and stenosis of bilateral carotid arteries Plan: Carotids appear to be stable. We did discuss routine risk factor modification in particular smoking cessation. Will need surveillance evaluation of these carotids in approximately 3-5 years. Orders: Orders CT angio abd aorta runoff 2 Days I73.9 - Peripheral vascular disease, unspecified Coding Level of Care Code Est Pt Level 4 (12693) Diagnoses PAD (peripheral artery disease) I73.9 Bilateral carotid artery stenosis I65.23
[2023-09-29 15:16] VITALS: BP 112/72
== END 2023-09-29 15:29 | disposition home or self-care (01) ==
PROVIDERS: PCP Internal Medicine Medical Oncology; Visit Provider Surgery Vascular Surgery
DX: I73.9 Peripheral vascular disease, unspecified (principal); I65.23 Occlusion and stenosis of bilateral carotid arteries
CPT/HCPCS: 99214

== ENCOUNTER → 2023-09-29 15:10 | Outpatient (BNVA) | payer BC, OTHER, SELFPAY | PROVIDERS: PCP Internal Medicine Medical Oncology; Visit Provider Surgery Vascular Surgery ==

== ENCOUNTER 2023-10-07 11:15 | Outpatient (REF) | payer BC, OTHER, SELFPAY ==
--- NOTE | ~2023-10-07 | CT_ITS ---
STUDY PERFORMED: CTA ABDOMEN, PELVIS AND LOWER EXTREMITY RUNOFF WITH CONTRAST HISTORY: Peripheral vascular disease with occluded left lower extremity bypass graft DESCRIPTION: Routine abdominal aorta and lower extremity runoff CTA protocol with contrast was performed. 100 mL of Omnipaque 350 was administered. 3D POSTPROCESSING: Multiple 3-D angiographic images were processed from the initial data set by the [facility] under concurrent physician supervision. This CT examination was performed using dose optimization techniques as appropriate, variously including the following: *Automated exposure control *Adjustment of mA and/or kV according to patient size (this includes techniques or standardized protocols for targeted exams where dose is matched to indication/reason for exam; i.e. extremities or head) *Use of iterative reconstruction technique DLP: 684 mGycm. COMPARISON: None FINDINGS: VASCULAR: ABDOMINAL AORTA: Calcific atherosclerotic change without aneurysm, dissection or stenosis. RIGHT LOWER EXTREMITY: - Common Iliac Artery: Diseased but widely patent. - Internal Iliac Artery: Mild disease but widely patent. - External Iliac Artery: Mild to moderate disease but widely patent. - Common Femoral Artery: Calcific plaque but widely patent. - Profunda Femoral Artery: Widely patent. - Superficial Femoral Artery: Mild disease but with short 5 to 6 cm segment occlusion at the adductor canal. - Popliteal Artery: Widely patent. - Tibioperoneal Trunk: Widely patent - Posterior Tibial Artery: Extremely diseased and essentially occluded. Reconstitution distally. - Peroneal Artery: Widely patent. - Anterior Tibial Artery: Mild proximal disease but widely patent. LEFT LOWER EXTREMITY: - Common Iliac Artery: Widely patent. - Internal Iliac Artery: Proximal disease but widely patent,. - External Iliac Artery: Severe focal stenosis distally just above the inguinal canal. - Common Femoral Artery: Patent. - Profunda Femoral Artery: Patent. - Superficial Femoral Artery: Occluded -Femoral-Popliteal Bypass Graft: Occluded. - Popliteal Artery: Reconstituted just above the knee joint and patent. - Tibioperoneal Trunk: Patent - Posterior Tibial Artery: Severe disease throughout and essentially occluded. - Peroneal Artery: Mild disease throughout but patent. - Anterior Tibial Artery: Mild disease proximally but widely patent. 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 The LANCE is widely patent. RENAL ARTERIES: There are 2 renal arteries present bilaterally all of which are patent.. NONVASCULAR: Lung Bases: The visualized lung bases are unremarkable. Liver, Gallbladder and Biliary Tree: The liver is normal in size, shape, and attenuation. No focal hepatic lesion or biliary ductal dilatation is present. The gallbladder contains some tiny layering gallstones but is otherwise unremarkable with no evidence of gallbladder wall thickening, or obvious pericholecystic inflammatory changes. Pancreas: Unremarkable. Spleen: Unremarkable. Adrenal Glands: Unremarkable. Kidneys and Ureters: The kidneys are normal in size, shape, and attenuation. No hydronephrosis, hydroureter, or calculi seen. No perinephric stranding. Bladder: Unremarkable. Gastrointestinal Tract: There are extensive sigmoid diverticula present without evidence of diverticulitis. The small and large bowel are otherwise unremarkable. The appendix is unremarkable. Abdominal Wall: No significant hernia is appreciated. Lymph Nodes: No retroperitoneal adenopathy Pelvic Viscera: There is mild BPH. Seminal vesicles appear normal. Osseous Structures: Unremarkable. Sclerosis is present in the sacrum adjacent to the SI joint bilaterally, left greater than right. No bony destructive lesions. CT/CT angio abd aorta runoff IMPRESSION: 1. No significant aortic inflow disease. 2. On the right, there is a short segment occlusion of the distal SFA with reconstituted popliteal with two-vessel runoff via the anterior tibial and peroneal arteries. 3. On the left, there is a focal severe stenosis in the distal external iliac artery with an occluded [place] SFA and femoral-popliteal bypass graft. The popliteal is reconstituted just above the knee joint with two-vessel runoff via the anterior tibial and peroneal arteries. 4. Incidental nonvascular findings as described above including cholelithiasis, sigmoid diverticulosis and BPH.
[2023-10-07] MEDS: iohexoL 350 MG/ML 100 ML INFUS..BTL IV (12:05)
[2023-10-08 07:10] LABS: Creatinine POC 0.6 mg/dL (0.5-1.4); GFR POC > 60
== END 2023-10-07 11:16 | disposition home or self-care (01) ==
LOC: HO.CT 11:15
PROVIDERS: PCP Internal Medicine Medical Oncology; Visit Provider Surgery Vascular Surgery
DX: I73.9 Peripheral vascular disease, unspecified (principal)
CPT/HCPCS: 75635; 82565; Q9967

== ENCOUNTER 2023-10-13 12:51 | Outpatient (AMB) | payer BC, OTHER, SELFPAY ==
[2023-10-13 12:53] VITALS: BP 162/84; PULSE 96; O2SAT 98; BMI 24.4
--- NOTE | 2023-10-13 12:53 | MHC.OFFVIS ---
Intake Vital Signs 10/13/23 12:53 Height 5 ft 10 in Weight 170 lb BMI 24.4 BP 162/84 H Blood Pressure Location Rt brachial Position Sitting Pulse 96 Pulse Source Pulse Oximeter Pulse Oximetry (%) 98 Oxygen Delivery Method Room Air Intake Visit Reasons: follow up CTA Abd/pelvis 10/07/2023 Intake Note: Pt presents to the office today for a follow up CTA Abd/ pelvis. Pt states he is still having issues with his left foot being numb but denies any other changes. Allergies nabumetone Adverse Reaction (Unknown, Verified 10/13/23 12:55) green stools HPI follow up CTA Abd/pelvis 10/07/2023 HPI Details Very pleasant 62-year-old gentleman presents for follow-up regarding occluded left lower extremity fem-pop bypass graft. He had undergone left fem-pop in May of 2022. It apparently was doing relatively well. An approximately 2-3 months ago he started to develop left leg pain and cramping. Presented to us for follow-up. At that point it had already been nearly 2 months since the original event. He has undergone CT angiogram and is now for follow-up. [facility] Medical History Porphyria cutanea tarda Hereditary hemochromatosis Nicotine dependence, cigarettes, uncomplicated Murmur SOB (shortness of breath) ETOH abuse Arthritis GERD (gastroesophageal reflux disease) HTN (hypertension) COPD (chronic obstructive pulmonary disease) Tubular adenoma of colon Surgical History History of femoropopliteal bypass History of colonoscopy S/P angiogram of extremity History of esophagogastroduodenoscopy History of lipoma History of skin graft History of removal of cyst History of foot surgery Family History Father Diabetes Stroke Hypertension Mother Chronic mental illness Family/Other FH: mental illness Social History Household Members: Spouse Housing: House Are you a primary geriatric personal care aide to a significant other at home: No Do you presently have visiting nurse or other home services: No Alcohol intake: current Alcohol intake frequency: a few times a month Alcohol type: beer Patient Tobacco Use Status: Current everyday Tobacco user Tobacco use type: Cigarette Cigarette Packs Per Day: 1 Cigarettes Per Day: 15 Years Smoked: (current smoker, onset 17yo, 1ppd x 45yrs, 45pyh) e-Cigarette/Vaping Use: Never Used Second Hand Smoke Exposure: Yes service: Yes ([employer]) Current occupational status: employed 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 occupational exposures/hazards: No Cognitive needs: No Hearing needs: No Vision needs: Yes Review of Systems Const All systems reviewed & are unremarkable except as noted in HPI and below Reports no additional complaints ENT Reports Normal hearing present Card Denies chest pain, Denies chest pain at rest, Denies chest pain with activity and Denies pedal edema Resp Denies cough GI Denies abdominal pain Musc Denies abnormal gait, Denies muscle cramps and Denies radiating pain into limb Skin/Breast Denies skin ulcer and Denies wounds Neuro Reports Normal hearing present and Denies abnormal gait Psych Reports no additional complaints Physical Exam Vital Signs: Last Vital Signs Pulse 96 10/13/23 12:53 BP 162/84 H 10/13/23 12:53 Pulse Ox 98 10/13/23 12:53 Oxygen Delivery Method Room Air 10/13/23 12:53 BMI result Body Mass Index 24.4 Const General: cooperative, healthy appearing and comfortable Orientation/consciousness: oriented to person, oriented to place and oriented to time HEENT Head: Yes normal to inspection Neck Neck: Yes normal visual inspection Carotids: no bruits Chest Chest palpation & inspection: normal inspection of the chest Resp Effort & Inspection: normal respiratory effort and able to speak in complete sentences Auscultation: clear to auscultation bilaterally, no crackles, no rales, no rhonchi and no wheezes Cardio Other: Bilateral DP signals Rate: regular rate Rhythm: regular rhythm Heart sounds: S1 normal heart sound present and S2 normal heart sound present Bruits: no carotid bruits Peripheral pulses: Peripheral pulses 2+ throughout GI Inspection: Yes normal to inspection Skin Wounds: no wounds Hair: normal Neuro General: oriented to person, oriented to place and oriented to time Cranial nerves: Yes CN's II-XII intact bilaterally and Yes Normal hearing present Cognition (Neuro): normal cognition Motor exam (neuro): 5/5 motor strength present throughout Extrem Other: venous exam: No significant superficial varicosities or spider telangiectasias, minimal edema General: No clubbing, No cyanosis and No edema Psych Appearance: grossly normal Mental Status: mental status grossly normal Speech and movement: Normal speech and movement present Results Reviewed Results Reviewed: CT angiogram was reviewed dated 10/07/2021 concerning for severe focal stenosis of left distal external iliac with occlusion of fem-pop bypass. Assessment & Plan Assessment & Plan (1) PVD (peripheral vascular disease): Code(s): I73.9 - Peripheral vascular disease, unspecified Plan: Patient notes has severe claudication. I have discussed the pathophysiology of peripheral vascular disease with the patient. I have also discussed risk factor modification. I have reviewed the patient's CT angiogram which demonstrates left external iliac stenosis. the patient would benefit from a left leg endovascular peripheral angiogram with possible angioplasty, stent, and/or atherectomy. This has been discussed in detail with the patient along with risks, benefits, and complications. This includes but is not limited to bleeding, infection, heart attack, need for emergent surgical repair, limb ischemia, blood vessel damage, bleeding, puncture, kidney injury, bruising, allergic reaction, and skin reaction. The patient demonstrates a clear understanding. We will schedule for the next appropriate time. Thank you for allowing us to assist in this patient's care. Coding Level of Care Code Est Pt Level 4 (59288) Diagnoses PVD (peripheral vascular disease) I73.9
== END 2023-10-13 13:28 | disposition home or self-care (01) ==
PROVIDERS: PCP Internal Medicine Medical Oncology; Visit Provider Surgery Vascular Surgery
DX: I73.9 Peripheral vascular disease, unspecified (principal)
CPT/HCPCS: 99214

== ENCOUNTER → 2023-10-13 12:51 | Outpatient (BNVA) | payer BC, OTHER, SELFPAY | PROVIDERS: PCP Internal Medicine Medical Oncology; Visit Provider Surgery Vascular Surgery ==

== ENCOUNTER 2023-10-21 06:06 | Day surgery (SDC) | payer BC, OTHER, SELFPAY ==
[2023-10-21] VITALS (8 sets, daily range): BP systolic 115–139; BP diastolic 75–87; PULSE 70–96; RESP 16–20; TEMP 36.6–37.1; O2SAT 95–100; BMI 24.4
--- OUTSIDE RECORDS SUMMARY | 2023-10-21 06:10 | XMS_ITS | Patient Health Record ---
Author Name Unknown Organization Ashish Huertas III, MD Address [address] [place] [address] [place] [address] Care Team Providers Care [employer] Professor Name Role Phone Ashish Huertas Primary Care Provider ALLERGIES Allergen (clinical drug ingredient) Drug/Non Drug Allergy documented on EMR Reaction Allergy Type Onset Date Status No Known Drug Allergy Unknown Drug Allergy Active RESULTS Component Value Reference Range Notes Complete Blood Count Auto Di ff Reviewed date:07/02/2023 02:52:20 PM Interpretation: Performing Lab:[facility], [address] [place] [phone] Notes/Report: White Blood Count 3.7 4.8-10.8 X10*3/uL Red Blood Count 5.02 4.60-5.80 X10*6/uL Hemoglobin 14.6 14.0-18.0 g/dl Hematocrit 43.7 42.0-52.0 % Mean Corpuscular Volume 87.1 80.0-98.0 fL Mean Corpuscular Hemoglobin 29.1 27.0-33.0 pg Mean Corpuscular HGB Conc 33.4 31.0-36.0 g/dl Red Cell Distribution Width 14.7 11.0-16.0 % Platelet Count 233 160-400 X10*3/uL Mean Platelet Volume 8.9 9.4-12.4 fL Neutrophils Percent Auto 47.4 45-73 % Imm Gran Pct Auto 0.5 0.0-0.4 % Lymphocytes Percent Auto 32.3 20-40 % Monocytes Percent Auto 16.3 2-11 % Eosinophils Percent Auto 1.9 0-4 % Basophils Percent Auto 1.6 0-2 % NRBC Pct Auto 0.0 0.0-0.2 /100WBC Neutrophils Absolute Auto 1.7 2.0-8.3 x10*3/uL Imm Gran Abs Auto 0.02 0.00-0.03 X10*3/uL Lymphocytes Absolute Auto 1.2 1.2-4.9 X10*3/uL Monocytes Absolute Auto 0.6 0.1-1.2 X10*3/uL Eosinophils Absolute Auto 0.1 0.0-0.4 X10*3/uL Basophils Absolute Auto 0.1 0.0-0.2 X10*3/uL NRBC Abs Auto 0.000 0.0-0.012 X10*3/uL Comprehensive Met. Panel Reviewed date:07/02/2023 02:52:20 PM Interpretation: Performing Lab:[address] [address] Notes/Report: Sodium 137 135-145 mmol/L Potassium 4.8 3.3-5.1 mmol/L Chloride 103 96-108 mmol/L Carbon Dioxide 25 22-29 mmol/L Anion Gap 14 12-20 Blood Urea Nitrogen 4 9-16 mg/dL Creatinine 0.77 0.5-1.4 mg/dL Estimated Glomerular Filt Rate > 60 NOTE: For -[place] individuals, multiply the result by 1.210. Chronic Kidney Disease: Estimated GFR < 60 mL/min/1.73m2 Severe Kidney Disease: Estimated GFR < 15 mL/min/1.73m2 Glucose Random 86 60-115 mg/dL Calcium 10.1 8.4-10.2 mg/dL Bilirubin Total 0.6 0.0-1.0 mg/dL Aspartate Amino Transferase 38 5-37 U/L Alanine Aminotransferase 23 0-40 U/L Total Protein 7.9 6.5-8.0 g/dL Albumin Level 4.3 3.5-5.0 g/dL Alkaline Phosphatase 74 39-117 U/L Uric Acid Reviewed date:07/02/2023 02:52:20 PM Interpretation: Performing Lab:[address] [address] Notes/Report: Uric Acid 4.9 3.4-7.0 mg/dL Lipid Panel Reviewed date:07/02/2023 02:52:20 PM Interpretation: Performing Lab:[address] [place] [address] Notes/Report: Triglycerides 81 Desirable Triglyceride: less than 150 mg/dL Borderline High Triglyceride 150-199 mg/dL High Triglyceride: 200-499 mg/dL Very High Triglyceride: greater than or equal to 5OO mg/dL Cholesterol 192 Desirable Cholesterol: less than 200 mg/dL Borderline High Cholesterol: 200-239 mg/dL High Cholesterol: greater than 239 mg/dL LDL Cholesterol Calculated 96 Desirable LDL: less than 100 mg/dL Near Optimal/Above Optimal LDL: 110-129 mg/dL Borderline High LDL: 130-159 mg/dL High LDL: 160-189 mg/dL Very High LDL: greater than or equal to 190 mg/dL HDL Cholesterol 80 Desirable HDL: greater than 40 mg/dL Note: This HDL assay may give artificially low results in patients with liver disease. Prostate Specific Antigen Reviewed date:07/02/2023 02:52:20 PM Interpretation: Performing Lab:[address] [address] Notes/Report: Prostate Specific Antigen 0.64 <0.05-4.0 ng/mL PSA methodology: Coyne Alinity i Chemiluminescent Microparticle Immunoassay (CMIA) Vitamin D 25-OH Total Reviewed date:07/02/2023 02:52:20 PM Interpretation: Performing Lab:[address] [address] Notes/Report: Vitamin D 25-OH Total 38.0 >30 ng/mL Health Based Reference Values* < 20 ng/mL Deficient 20-30 ng/mL Insufficient > 30 ng/mL Sufficient *Ash KNOWLES. N Engl J Med. 2007;357:266-280 Care must be taken in interpreting Vitamin D results from different laboratories and methodologies. Published data demonstrated that results from patients undergoing hemodialysis may show a negative bias when tested with various automated 25-OH vitamin D assays when compared to LC-MS/MS. When testing samples from patients whose predominant form of Vitamin D is Vitamin D2, such as patients receiving Vitamin D2 supplementation, results that are subtherapeutic should be confirmed with another method such as LC-MS/MS. Ear Culture Reviewed date:07/06/2023 05:50:09 PM Interpretation: Performing Lab:[address] [address] Notes/Report: Ear Culture Report - external Ear Culture 2+ Mixed skin wesley O:STAAUR Staphylococcus aureus Ear Culture Quant Ear Culture 2+ Clindamycin <=0.25 Erythromycin <=0.25 Levofloxacin 0.25 Oxacillin <=0.25 Penicillin-G >=0.5 Tetracycline <=1 Trimethoprim/Sulfamethox azole <=10 Gram stain Reviewed date:07/06/2023 05:50:09 PM Interpretation: Performing Lab:[facility], [address] [place] [phone] Notes/Report: Gram stain Gram stain results: Gram stain No polys Gram stain 1+ epithelial cells Gram stain 2+ Gram-positive cocci US KAI complete Reviewed date:09/24/2023 05:55:12 PM Interpretation: Performing Lab: Notes/Report: [address] [place] [address] Ultrasound Report Signed Patient: Sid Landeros MR#: [id number] : 1960 Acct:[id number] Age/Sex: 62 / M ADM Date: 09/07/23 Loc: HO.US Attending Dr: Jhony Orr MD Ordering Physician: Jhony Orr MD Date of Service: 09/07/23 Procedure(s): US KAI complete Accession Number(s): [id number] cc: Ashish Huertas MD; Jhony Orr MD EXAMINATION: Noninvasive assessment of the bilateral lower extremities with ARTERIAL DUPLEX and ANKLE BRACHIAL INDICES (ABIs). CLINICAL INFORMATION: Peripheral vascular disease TECHNIQUE: Duplex Doppler techniques with waveform analysis and measurement of velocities in the bilateral common femoral, profunda femoris, superficial femoral, popliteal and tibial arteries were performed. Additionally, ankle pulse volume recordings, ankle pressure measurements and ankle brachial indices were obtained of the lower extremity arterial system bilaterally. The study was performed only at rest. COMPARISON: 11/11/2022 FINDINGS: DIRECT DUPLEX DOPPLER FINDINGS: RIGHT LEG: Common femoral artery: 122 cm/s, phasicity: Biphasic Profunda femoris artery: 118 cm/s, phasicity: Biphasic Superficial femoral artery (proximal): 72.0 cm/s, phasicity: Biphasic Superficial femoral artery (mid): 57.2 cm/s, phasicity: Biphasic Superficial femoral artery (distal): Short segment occlusion with adjacent collateral vessels. Reconstituted flow is seen in the distal segment with dampened monophasic waveform and decreased velocity measuring 20.9 cm/s Popliteal artery: 34.5 cm/s, phasicity: Monophasic Posterior tibial artery: 12.8 cm/s, phasicity: Monophasic Peroneal artery: 19.2 cm/s, phasicity: Monophasic Anterior tibial artery: 18.0 cm/s, phasicity: Monophasic Dorsalis pedis artery: 19.0 cm/s, phasicity:Monophasic LEFT LEG: Common femoral artery: 49.2 cm/s, phasicity: Monophasic Profunda femoris artery: 46.7 cm/s, phasicity: Monophasic Superficial femoral artery (proximal): Occluded Superficial femoral artery (mid): Occluded Superficial femoral artery (distal): Occluded Femoropopliteal bypass graft is occluded, which was previously patent on the prior ultrasound Popliteal artery: 18.8 cm/s, phasicity: Monophasic Posterior tibial artery: 11.6 cm/s, phasicity: Monophasic Peroneal artery: 14.0 cm/s, phasicity: Monophasic Anterior tibial artery: 11.8 cm/s, phasicity: Monophasic Dorsalis pedis artery: 10.8 cm/s, phasicity: Monophasic ANKLE-BRACHIAL INDEX: Right: 0.73, previously 0.87? Left: 0.55, previously 0.74 ANKLE PRESSURES: Right: PT 101, DP 94 Left: PT?76, DP?73 ANKLE PVR WAVEFORMS: Right: Abnormal Left: Abnormal US/US KAI complete IMPRESSION: Right leg: Mildly decreased ankle brachial index which is stable. Short segment occlusion of the distal superficial femoral artery with reconstituted monophasic flow within the popliteal artery and below-knee runoff as described above. No significant change compared to the prior exam. Left leg: Moderately decreased ankle brachial index which is significantly decreased compared to the prior exam. 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 There is interval occlusion of the femoropopliteal bypass graft. Reconstituted flow seen in the popliteal artery with severely dampened but patent arterial waveforms seen in the below-knee runoff vessels. KAI Reference: - >1.4 = calcified vessels - 0.9 - 1.4 = normal - no significant arterial disease - 0.7 - 0.89 = mild peripheral arterial disease - 0.51 - 0.69 = moderate peripheral arterial disease - ? 0.50 = severe peripheral arterial disease - < .30 = critical arterial disease EXAMINATION: US RETROPERITONEAL LIMITED (AORTA) CLINICAL INFORMATION: Peripheral vascular disease. COMPARISON: None available. TECHNIQUE: Silverman-scale, color Doppler and spectral Doppler evaluation of the abdominal aorta. FINDINGS: The aorta is normal. The measurements of the aorta in maximum AP and transverse dimensions respectively are as follows: Proximal: 3.0 x 2.2 cm. Mid: 2.1 x 2.0 cm. Distal: 2.4 x 2.3 cm. PSV: 56.0 cm/s. The duplex Doppler of the bilateral iliac arteries: Right Common Iliac Artery: 94.3 cm/s, triphasic. Right external iliac artery: 317 cm/s, triphasic Left Common Iliac Artery: 75.7 cm/s, monophasic. Left external iliac artery: 184 cm/s, monophasic IMPRESSION: Aorta is normal in caliber with normal duplex waveforms. Elevated velocity seen in the bilateral external iliac arteries, right greater than left consistent with moderate to severe stenosis. Dictated By: Stanislav Roblero MD Signed By: <Electronically signed by Stanislav Roblero MD in [place]> 09/14/23 0935 DD/ 1530 TD/TT: Gas Controller: US carotid duplex BI Reviewed date:09/24/2023 05:55:12 PM Interpretation: Performing Lab: Notes/Report: [address] [address] Ultrasound Report Signed Patient: Sid Landeros MR#: [id number] : 1960 Acct:[id number] Age/Sex: 62 / M ADM Date: 09/07/23 Loc: HO.US Attending Dr: Jhony Orr MD Ordering Physician: Carlos A Fletcher MD Date of Service: 09/07/23 Procedure(s): US carotid duplex BI Accession Number(s): [id number] cc: Ashish Huertas MD; Carlos A Fletcher MD EXAMINATION: US EXTRACRANIAL CAROTID DUPLEX, BILATERAL CLINICAL INFORMATION: Carotid stenosis. COMPARISON: None available. TECHNIQUE: Real-time ultrasound and Doppler techniques (integrating B-mode 2-D vascular images, Doppler spectral analysis and color-flow Doppler imaging) were utilized to interrogate the extracranial carotid arteries, the vertebral arteries and proximal subclavian arteries bilaterally. The degree of stenosis is determined by criteria similar to NASCET. FINDINGS: Right Side: 1. There is mild atherosclerotic plaque seen in the bifurcation/proximal ICA region. 2. The common carotid artery PSV proximally is 94 cm/s and distally 72 cm/s. 3. The proximal internal carotid artery velocities are 64 cm/s systolic and 24 cm/s diastolic. 4. The proximal external carotid artery PSV is 89 cm/s. 5. The vertebral artery shows antegrade flow. 6. The subclavian artery waveforms are normal. Left Side: 1. There is mild atherosclerotic plaque seen in the bifurcation/proximal ICA region. 2. The common carotid artery PSV proximally is 117 cm/s and distally 75 cm/s. 3. The proximal internal carotid artery velocities are 81 cm/s systolic and 35 cm/s diastolic. 4. The proximal external carotid artery PSV is 114 cm/s. 5. The vertebral artery shows antegrade flow. 6. The subclavian artery waveforms are normal. US/US carotid duplex BI IMPRESSION: 1. RIGHT: Minimal, non-hemodynamically significant stenosis of the proximal right internal carotid artery corresponding to a 0-49% stenosis by velocity criteria. 2. LEFT: Minimal, non-hemodynamically significant stenosis of the proximal left internal carotid artery corresponding to a 0-49% stenosis by velocity criteria. Dictated By: Hardeep Villeda MD Signed By: <Electronically signed by Hardeep Villeda MD in [place]> 09/08/23 1037 DD/ 1408 TD/TT: Gas Controller: DYANA US arterial duplex LE BI Reviewed date:09/24/2023 05:55:12 PM Interpretation: Performing Lab: Notes/Report: [address] [address] Ultrasound Report Signed Patient: Sid Landeros MR#: [id number] : 1960 Acct:[id number] Age/Sex: 62 / M ADM Date: 09/07/23 Loc: HO.US Attending Dr: Jhony Orr MD Ordering Physician: Jhony Orr MD Date of Service: 09/07/23 Procedure(s): US arterial duplex LE BI Accession Number(s): [id number] cc: Ashish Huertas MD; Jhony Orr MD EXAMINATION: Noninvasive assessment of the bilateral lower extremities with ARTERIAL DUPLEX and ANKLE BRACHIAL INDICES (ABIs). CLINICAL INFORMATION: Peripheral vascular disease TECHNIQUE: Duplex Doppler techniques with waveform analysis and measurement of velocities in the bilateral common femoral, profunda femoris, superficial femoral, popliteal and tibial arteries were performed. Additionally, ankle pulse volume recordings, ankle pressure measurements and ankle brachial indices were obtained of the lower extremity arterial system bilaterally. The study was performed only at rest. COMPARISON: 11/11/2022 FINDINGS: DIRECT DUPLEX DOPPLER FINDINGS: RIGHT LEG: Common femoral artery: 122 cm/s, phasicity: Biphasic Profunda femoris artery: 118 cm/s, phasicity: Biphasic Superficial femoral artery (proximal): 72.0 cm/s, phasicity: Biphasic Superficial femoral artery (mid): 57.2 cm/s, phasicity: Biphasic Superficial femoral artery (distal): Short segment occlusion with adjacent collateral vessels. Reconstituted flow is seen in the distal segment with dampened monophasic waveform and decreased velocity measuring 20.9 cm/s Popliteal artery: 34.5 cm/s, phasicity: Monophasic Posterior tibial artery: 12.8 cm/s, phasicity: Monophasic Peroneal artery: 19.2 cm/s, phasicity: Monophasic Anterior tibial artery: 18.0 cm/s, phasicity: Monophasic Dorsalis pedis artery: 19.0 cm/s, phasicity:Monophasic LEFT LEG: Common femoral artery: 49.2 cm/s, phasicity: Monophasic Profunda femoris artery: 46.7 cm/s, phasicity: Monophasic Superficial femoral artery (proximal): Occluded Superficial femoral artery (mid): Occluded Superficial femoral artery (distal): Occluded Femoropopliteal bypass graft is occluded, which was previously patent on the prior ultrasound Popliteal artery: 18.8 cm/s, phasicity: Monophasic Posterior tibial artery: 11.6 cm/s, phasicity: Monophasic Peroneal artery: 14.0 cm/s, phasicity: Monophasic Anterior tibial artery: 11.8 cm/s, phasicity: Monophasic Dorsalis pedis artery: 10.8 cm/s, phasicity: Monophasic ANKLE-BRACHIAL INDEX: Right: 0.73, previously 0.87? Left: 0.55, previously 0.74 ANKLE PRESSURES: Right: PT 101, DP 94 Left: PT?76, DP?73 ANKLE PVR WAVEFORMS: Right: Abnormal Left: Abnormal US/US arterial duplex LE BI IMPRESSION: Right leg: Mildly decreased ankle brachial index which is stable. Short segment occlusion of the distal superficial femoral artery with reconstituted monophasic flow within the popliteal artery and below-knee runoff as described above. No significant change compared to the prior exam. Left leg: Moderately decreased ankle brachial index which is significantly decreased compared to the prior exam. 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 There is interval occlusion of the femoropopliteal bypass graft. Reconstituted flow seen in the popliteal artery with severely dampened but patent arterial waveforms seen in the below-knee runoff vessels. KAI Reference: - >1.4 = calcified vessels - 0.9 - 1.4 = normal - no significant arterial disease - 0.7 - 0.89 = mild peripheral arterial disease - 0.51 - 0.69 = moderate peripheral arterial disease - ? 0.50 = severe peripheral arterial disease - < .30 = critical arterial disease EXAMINATION: US RETROPERITONEAL LIMITED (AORTA) CLINICAL INFORMATION: Peripheral vascular disease. COMPARISON: None available. TECHNIQUE: Silverman-scale, color Doppler and spectral Doppler evaluation of the abdominal aorta. FINDINGS: The aorta is normal. The measurements of the aorta in maximum AP and transverse dimensions respectively are as follows: Proximal: 3.0 x 2.2 cm. Mid: 2.1 x 2.0 cm. Distal: 2.4 x 2.3 cm. PSV: 56.0 cm/s. The duplex Doppler of the bilateral iliac arteries: Right Common Iliac Artery: 94.3 cm/s, triphasic. Right external iliac artery: 317 cm/s, triphasic Left Common Iliac Artery: 75.7 cm/s, monophasic. Left external iliac artery: 184 cm/s, monophasic IMPRESSION: Aorta is normal in caliber with normal duplex waveforms. Elevated velocity seen in the bilateral external iliac arteries, right greater than left consistent with moderate to severe stenosis. Dictated By: Stanislav Roblero MD Signed By: <Electronically signed by Stanislav Roblero MD in OV> 09/14/23 0935 DD/ 1530 TD/TT: Gas Controller: US abdominal aortic aneurysm Reviewed date:09/24/2023 05:55:12 PM Interpretation: Performing Lab: Notes/Report: [address] [address] Ultrasound Report Signed Patient: Sid Landeros MR#: [id number] : 1960 Acct:[id number] Age/Sex: 62 / M ADM Date: 09/07/23 Loc: HO. Attending Dr: Jhony Orr MD Ordering Physician: Jhony Orr MD Date of Service: 09/07/23 Procedure(s): US abdominal aortic aneurysm Accession Number(s): [id number] cc: Ashish Huertas MD; Jhony Orr MD EXAMINATION: Noninvasive assessment of the bilateral lower extremities with ARTERIAL DUPLEX and ANKLE BRACHIAL INDICES (ABIs). CLINICAL INFORMATION: Peripheral vascular disease TECHNIQUE: Duplex Doppler techniques with waveform analysis and measurement of velocities in the bilateral common femoral, profunda femoris, superficial femoral, popliteal and tibial arteries were performed. Additionally, ankle pulse volume recordings, ankle pressure measurements and ankle brachial indices were obtained of the lower extremity arterial system bilaterally. The study was performed only at rest. COMPARISON: 11/11/2022 FINDINGS: DIRECT DUPLEX DOPPLER FINDINGS: RIGHT LEG: Common femoral artery: 122 cm/s, phasicity: Biphasic Profunda femoris artery: 118 cm/s, phasicity: Biphasic Superficial femoral artery (proximal): 72.0 cm/s, phasicity: Biphasic Superficial femoral artery (mid): 57.2 cm/s, phasicity: Biphasic Superficial femoral artery (distal): Short segment occlusion with adjacent collateral vessels. Reconstituted flow is seen in the distal segment with dampened monophasic waveform and decreased velocity measuring 20.9 cm/s Popliteal artery: 34.5 cm/s, phasicity: Monophasic Posterior tibial artery: 12.8 cm/s, phasicity: Monophasic Peroneal artery: 19.2 cm/s, phasicity: Monophasic Anterior tibial artery: 18.0 cm/s, phasicity: Monophasic Dorsalis pedis artery: 19.0 cm/s, phasicity:Monophasic LEFT LEG: Common femoral artery: 49.2 cm/s, phasicity: Monophasic Profunda femoris artery: 46.7 cm/s, phasicity: Monophasic Superficial femoral artery (proximal): Occluded Superficial femoral artery (mid): Occluded Superficial femoral artery (distal): Occluded Femoropopliteal bypass graft is occluded, which was previously patent on the prior ultrasound Popliteal artery: 18.8 cm/s, phasicity: Monophasic Posterior tibial artery: 11.6 cm/s, phasicity: Monophasic Peroneal artery: 14.0 cm/s, phasicity: Monophasic Anterior tibial artery: 11.8 cm/s, phasicity: Monophasic Dorsalis pedis artery: 10.8 cm/s, phasicity: Monophasic ANKLE-BRACHIAL INDEX: Right: 0.73, previously 0.87? Left: 0.55, previously 0.74 ANKLE PRESSURES: Right: PT 101, DP 94 Left: PT?76, DP?73 ANKLE PVR WAVEFORMS: Right: Abnormal Left: Abnormal US/US abdominal aortic aneurysm IMPRESSION: Right leg: Mildly decreased ankle brachial index which is stable. Short segment occlusion of the distal superficial femoral artery with reconstituted monophasic flow within the popliteal artery and below-knee runoff as described above. No significant change compared to the prior exam. Left leg: Moderately decreased ankle brachial index which is significantly decreased compared to the prior exam. 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 There is interval occlusion of the femoropopliteal bypass graft. Reconstituted flow seen in the popliteal artery with severely dampened but patent arterial waveforms seen in the below-knee runoff vessels. KAI Reference: - >1.4 = calcified vessels - 0.9 - 1.4 = normal - no significant arterial disease - 0.7 - 0.89 = mild peripheral arterial disease - 0.51 - 0.69 = moderate peripheral arterial disease - ? 0.50 = severe peripheral arterial disease - < .30 = critical arterial disease EXAMINATION: US RETROPERITONEAL LIMITED (AORTA) CLINICAL INFORMATION: Peripheral vascular disease. COMPARISON: None available. TECHNIQUE: Silverman-scale, color Doppler and spectral Doppler evaluation of the abdominal aorta. FINDINGS: The aorta is normal. The measurements of the aorta in maximum AP and transverse dimensions respectively are as follows: Proximal: 3.0 x 2.2 cm. Mid: 2.1 x 2.0 cm. Distal: 2.4 x 2.3 cm. PSV: 56.0 cm/s. The duplex Doppler of the bilateral iliac arteries: Right Common Iliac Artery: 94.3 cm/s, triphasic. Right external iliac artery: 317 cm/s, triphasic Left Common Iliac Artery: 75.7 cm/s, monophasic. Left external iliac artery: 184 cm/s, monophasic IMPRESSION: Aorta is normal in caliber with normal duplex waveforms. Elevated velocity seen in the bilateral external iliac arteries, right greater than left consistent with moderate to severe stenosis. Dictated By: Stanislav Roblero MD Signed By: <Electronically signed by Stanislav Roblero MD in OV> 09/14/2335 DD/ 1530 TD/TT: Gas Controller: URINE DIP STICK Reviewed date:09/23/2023 09:45:16 AM Interpretation: Performing Lab: Notes/Report: SG 1.010 1.005 - 1.025 pH 6.5 5.0 - 9.0 JAYLYN Negative Negative - NIT Negative Negative - PRO 15 Negative - Trace GLU Negative Negative - KET 5 Negative - UBG 0.2 0.1 - 1.8 DIOR Negative 0.2 - 1.3 BLD Negative Negative - Menstrating Creatinine GFR POC Reviewed date:10/12/2023 08:41:12 AM Interpretation: Performing Lab:[facility], [address] [place] [id number] Notes/Report: [id number] .63 >60 1131 HO.BERCHB Creatinine POC 0.6 0.5-1.4 mg/dL GFR POC > 60 Chronic Kidney Disease: Estimated GFR < 60 mL/min/1.73m2 Severe Kidney Disease: Estimated GFR < 15 mL/min/1.73m2 CT angio abd aorta runoff Reviewed date:10/07/2023 04:23:32 PM Interpretation: Performing Lab: Notes/Report: [address] [address] [address] Scan Report Signed Patient: Sid Landeros MR#: [id number] : 1960 Acct:[id number] Age/Sex: 62 / M ADM Date: 10/07/23 Loc: HO.CT Attending Dr: Jhony Orr MD Ordering Physician: Jhony Orr MD Date of Service: 10/07/23 Procedure(s): CT angio abd aorta runoff Accession Number(s): [id number] cc: Ashish Huertas MD; Jhony Orr MD STUDY PERFORMED: CTA ABDOMEN, PELVIS AND LOWER EXTREMITY RUNOFF WITH CONTRAST HISTORY: Peripheral vascular disease with occluded left lower extremity bypass graft DESCRIPTION: Routine abdominal aorta and lower extremity runoff CTA protocol with contrast was performed. 100 mL of Omnipaque 350 was administered. 3D POSTPROCESSING: Multiple 3-D angiographic images were processed from the initial data set by the [facility] under concurrent physician supervision. This CT examination was performed using dose optimization techniques as appropriate, variously including the following: *Automated exposure control *Adjustment of mA and/or kV according to patient size (this includes techniques or standardized protocols for targeted exams where dose is matched to indication/reason for exam; i.e. extremities or head) *Use of iterative reconstruction technique DLP: 684 mGycm. COMPARISON: None FINDINGS: VASCULAR: ABDOMINAL AORTA: Calcific atherosclerotic change without aneurysm, dissection or stenosis. RIGHT LOWER EXTREMITY: - Common Iliac Artery: Diseased but widely patent. - Internal Iliac Artery: Mild disease but widely patent. - External Iliac Artery: Mild to moderate disease but widely patent. - Common Femoral Artery: Calcific plaque but widely patent. - Profunda Femoral Artery: Widely patent. - Superficial Femoral Artery: Mild disease but with short 5 to 6 cm segment occlusion at the adductor canal. - Popliteal Artery: Widely patent. - Tibioperoneal Trunk: Widely patent - Posterior Tibial Artery: Extremely diseased and essentially occluded. Reconstitution distally. - Peroneal Artery: Widely patent. - Anterior Tibial Artery: Mild proximal disease but widely patent. LEFT LOWER EXTREMITY: - Common Iliac Artery: Widely patent. - Internal Iliac Artery: Proximal disease but widely patent,. - External Iliac Artery: Severe focal stenosis distally just above the inguinal canal. - Common Femoral Artery: Patent. - Profunda Femoral Artery: Patent. - Superficial Femoral Artery: Occluded -Femoral-Popliteal Bypass Graft: Occluded. - Popliteal Artery: Reconstituted just above the knee joint and patent. - Tibioperoneal Trunk: Patent - Posterior Tibial Artery: Severe disease throughout and essentially occluded. - Peroneal Artery: Mild disease throughout but patent. - Anterior Tibial Artery: Mild disease proximally but widely patent. 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 The LANCE is widely patent. RENAL ARTERIES: There are 2 renal arteries present bilaterally all of which are patent.. NONVASCULAR: Lung Bases: The visualized lung bases are unremarkable. Liver, Gallbladder and Biliary Tree: The liver is normal in size, shape, and attenuation. No focal hepatic lesion or biliary ductal dilatation is present. The gallbladder contains some tiny layering gallstones but is otherwise unremarkable with no evidence of gallbladder wall thickening, or obvious pericholecystic inflammatory changes. Pancreas: Unremarkable. Spleen: Unremarkable. Adrenal Glands: Unremarkable. Kidneys and Ureters: The kidneys are normal in size, shape, and attenuation. No hydronephrosis, hydroureter, or calculi seen. No perinephric stranding. Bladder: Unremarkable. Gastrointestinal Tract: There are extensive sigmoid diverticula present without evidence of diverticulitis. The small and large bowel are otherwise unremarkable. The appendix is unremarkable. Abdominal Wall: No significant hernia is appreciated. Lymph Nodes: No retroperitoneal adenopathy Pelvic Viscera: There is mild BPH. Seminal vesicles appear normal. Osseous Structures: Unremarkable. Sclerosis is present in the sacrum adjacent to the SI joint bilaterally, left greater than right. No bony destructive lesions. CT/CT angio abd aorta runoff IMPRESSION: 1. No significant aortic inflow disease. 2. On the right, there is a short segment occlusion of the distal SFA with reconstituted popliteal with two-vessel runoff via the anterior tibial and peroneal arteries. 3. On the left, there is a focal severe stenosis in the distal external iliac artery with an occluded wainwright SFA and femoral-popliteal bypass graft. The popliteal is reconstituted just above the knee joint with two-vessel runoff via the anterior tibial and peroneal arteries. 4. Incidental nonvascular findings as described above including cholelithiasis, sigmoid diverticulosis and BPH. Dictated By: Hardeep Villeda MD Signed By: <Electronically signed by Hardeep Villeda MD in [place]> 10/07/23 1314 DD/ 1203 TD/TT: Gas Controller: DYANA REASON FOR REFERRAL Reason Consult and Treat Ri ght Buttock Pain Physical Therapy Diagnosis 1 Lumbar radiculopathy , right (M54.16) Diagnosis 2 Right buttock pain ( M79.18) Referral Organization Ashish Huertas III, MD Referring Provider First Name Ashish Referring Provider Last Name Aleksandar Referring Provider Speciality Internal M edicine Referred Provider [facility] [place] Referred Provider Specialty Physical Med [facility] General Notes GalenaSharon rose 2022 11:09:50 AM EDT > Faxed referral with progress notes. Referral Priority Routine Reason low back pain left leg numbness eval and treatment Diagnosis 1 Numbness (R20.0) Diagnosis 2 Left low back pain, unspecified chronicity, unspecified whether sciatica present (M54.50) Referral Organization Ashish Huertas III, MD Referring Provider First Name Ashish Referring Provider Last Name Aleksandar Referring Provider Speciality Internal edicine Referred Provider [facility] [place] Referred Provider Specialty Physical Med [facility] General Notes Liat Pinon CMA 10/2023 03:12:36 PM EST > ref/demo/progress note faxed to [facility] asking them to call patient with appt information , Liat Pinon CMA 09/30/2023 11:13:22 AM EST > called [facility] they stated they do have referral but have not contacted pt as of yet, Liat Pinon CMA 10/05/2023 01:55:33 PM EST > I called [facility] they stated pt has appt with Dr Delgado on 10/07/2023 at 9:30am Referral Priority Routine Referral Appointment Date 10/07/2023 MEDICATIONS Medication SIG (Take, Route, Frequency, Duration) Notes Start Date End Date Status Cephalexin 500 MG 1 capsule Orally Fou r times a day for 7 days 10/14/2023 11/11/2023 Active Ibuprofen 800 MG Oral Act henrry Symbicort 160-4.5 MCG/ACT 2 puffs Inhala tion Twice a day Active dexAMETHasone 2 MG 1 tablet Orally ever y 12 hrs 12/22/2022 Active Sildenafil Citrate 100 MG 1 tablet Orall y Once a day 05/15/2023 Active Combivent Respimat 20-100 MCG/ACT 1 puff as needed Inhalation every 6 hrs Active amLODIPine Besylate 10 MG Oral Active Sildenafil Citrate 100 MG Oral Active Doxycycline Hyclate 100 MG 1 tablet Oral ly Twice a day 07/03/2023 Active Rosuvastatin Calcium 20 MG 1 tablet Oral ly Once a day Active traZODone HCl 100 MG 1 tablet at bedtime Orally Once a day 09/01/2023 Active Varenicline Tartrate (Starter) 0.5 MG X 11 & 1 MG X 42 as directed Orally as directed 01/30/2023 Active Pantoprazole Sodium 40 MG as directed Or ally Once a day Active traMADol HCl 50 MG 1 tablet Orally ever y 6 hours prn back pain 12/23/2022 Active IMMUNIZATIONS Vaccine Route Administration Date Status Comme nts Tdap Unknown 11/28/2013 Administered PPV 23 Unknown 10/04/2020 Administered COVID 19 Moderna Unknown 03/27/2021 Administered PPV 23 Unknown 09/29/2019 Administered Influenza, quad Unknown 07/25/2021 Administered COVID 19 Moderna Unknown 02/27/2021 Administered SOCIAL HISTORY Tobacco Use: Social History Observation Description Date Details (start date - stop date) Current Smoker NA - NA Sex Assigned At : Social History Observation Description Sex Assigned At Male Tobacco Use/Smoking Question Answer Notes Patient is a current smoker How often do you smoke cigarettes? every day How many cigarettes a day do you smoke? 21-30 How soon after you wake up d o you smoke your first cigarette? 6-30 minutes Are you interested in quitting? Not ready to zulay t Additional Findings: Tobacco User Heavy cigarett e smoker (20-39 cigs/day) Alcohol Screen Question Answer Notes Did you have a drink containing alcohol in the p ast year? No Points 0 Interpretation Negative PROBLEMS Problem Type ICD Code Onset Dates Problem Status W/U Status Risk SNOMED Code Notes Problem Hypertension (I10) Active confirmed Hypertension (65712163) His blood pressure is currently stable at 132/80. No change in his regimen was made. I encouraged hiim to puursue aggressive sodium restriction. Problem Porphyria cutanea tarda (E80.1) Active confirmed [id number] The diagnosis of porphyria was made by a group reservations coordinator at [facility]. He affirms that if he goes into direct sunlight. He will experience blisters and skin lesions. He is well versed in how to prevent this and has medications for his skin. Problem BPH (benign prostatic hyperplasia) (N40.0) Active confirmed Benign prostatic hyperplasia (474856810) He rises from sleep once or twice a night to urinate. We have discussed lifestyle modification as a way to relieve nocturnal urinating. Problem Tobacco dependence (F17.200) Active confirmed [id number] He has smoked a package of cigarettes per day for 40 years. He has known COPD. We discussed smoking cessation strategies. This current regimen was continued. Problem COPD (chronic obstructive pulmonary disease) (J44.9) Active confirmed COPD - Chronic obstructive pulmonary disease (79119925) His breathing is currently unimpaired. He denies any wheezing or shortness of breath with activities of daily life. He continues to smoke cigarettes, however. We discussed smoking cessation. I reviewed with him the importance of reducing and eliminating the use of tobacco. We have reviewed the health consequences of continued smoking, which include lung cancer, COPD, oxygen dependence, etc. Problem Pilonidal cyst (L05.91) Active confirmed [id number] He had an excision and repair of this cyst years ago. It is healed and no longer bothers him. Problem Peripheral arterial disease (I73.9) Active confirmed [id number] He saw [facility] vascular surgeon recently. No invasive procedures are planned. Surveillance will continue. He will be seeking again in June 2023. The left leg was pink and warm. Problem Lumbar radiculopathy, right (M54.16) Active confirmed [id number] This pain has now resolved. Problem Acute diffuse otitis externa of both ears (H60.313) Active confirmed 60773283 He will finish the doxycycline and then resume normal activities. Infection is resolving. VITAL SIGNS Heart Rate 90 /min 09/23/2023 Temperature 97.9 degrees Fahrenheit 09/23/2023 Blood pressure diastolic 80 mm Hg 09/23/2023 Height 70 in 09/23/2023 Blood pressure systolic 138 mm Hg 09/23/2023 Weight 167 lbs 09/23/2023 BMI 23.96 kg/m2 09/23/2023 Encounters Encounter Location Date Provider Diagnosis Ashish Huertas III, MD [address] [place] [address] [place] [address] 09/23/2023 Ashish Huertas Tobacco dependence F17.200 ; Left low back pain, unspecified chronicity, unspecified whether sciatica present M54.50 ; Leg numbness R20.0 ; Hypertension I10 and BPH (benign prostatic hyperplasia) N40.0 Ashish Huertas III, MD [address] [place] [address] [place] [address] 12/23/2022 Ashish Huertas Lumbar radiculopathy M54.16 ; COPD (chronic obstructive pulmonary disease) J44.9 ; Hypertension I10 ; BPH (benign prostatic hyperplasia) N40.0 ; Peripheral arterial disease I73.9 ; Porphyria cutanea tarda E80.1 and Tobacco dependence F17.200 Ashish Huertas III, MD [address] [place] [address] [place] [id number] 04/17/2023 Ashish Huertas III, MD [address] [place] [address] [place] [id number] 02/20/2023 Ashish Huertas Lumbar radiculopathy , right M54.16 ; COPD (chronic obstructive pulmonary disease) J44.9 ; Hypertension I10 ; BPH (benign prostatic hyperplasia) N40.0 ; Peripheral arterial disease I73.9 and Porphyria cutanea tarda E80.1 Ashish Huertas III, MD [address] [place] [address] [place] [id number] 05/20/2023 Ashish Huertas III, MD [address] [place] [address] [place] [address] 03/03/2023 Ashish Huertas Lumbar radiculopathy , right M54.16 and Skin tear of right forearm without complication, initial encounter S51.811A Ashish Huertas III, MD [address] [place] [address] [place] [address] 06/02/2023 Ashish Huertas III, MD [address] [place] [address] [place] [address] 07/03/2023 Ashish Huertas Lumbar radiculopathy , right M54.16 ; Ear pain, left H92.02 ; BPH (benign prostatic hyperplasia) N40.0 ; Peripheral arterial disease I73.9 ; Porphyria cutanea tarda E80.1 and Tobacco dependence F17.200 Ashish Huertas III, MD [address] [place] [address] [place] [id number] 01/29/2023 Ashish Huertas Lumbar radiculopathy , right M54.16 ; Tobacco dependence F17.200 ; Porphyria cutanea tarda E80.1 ; Peripheral arterial disease I73.9 ; BPH (benign prostatic hyperplasia) N40.0 ; COPD (chronic obstructive pulmonary disease) J44.9 and Hypertension I10 Ashish Huertas III, MD [address] [place] [address] [place] [address] 12/22/2022 Ashish Huertas III, MD [address] [facility] [place] [address] 12/22/2022 Ashish Huertas III, MD [address] [facility] [place] [address] 01/28/2023 Ashish Huertas III, MD [address] [facility] [place] [address] 01/29/2023 Ashish Huertas III, MD [address] [facility] [place] [address] 02/02/2023 Ashish Huertas III, MD [address] [facility] [place] [address] 03/10/2023 Ashish Huertas III, MD [address] [facility] [place] [address] 03/10/2023 Ashish Huertas III, MD [address] [facility] [place] [address] 03/17/2023 Ahsish Huertas III, MD [address] [facility] [place] [address] 03/17/2023 Ashish Huertas III, MD [address] [facility] [place] [address] 05/15/2023 Ashish Huertas III, MD [address] [facility] [place] [address] 05/15/2023 Ashish Huertas III, MD [address] [facility] [place] [address] 07/01/2023 Ashish Huertas III, MD [address] [facility] [place] [address] 09/01/2023 Ashish Huertas III, MD [address] [facility] [place] [address] 09/01/2023 Ashish Huertas III, MD [address] [facility] [place] [address] 09/01/2023 Ashish Huertas III, MD [address] [facility] [place] [address] 09/08/2023 Ashish Huertas Tobacco dependence F17.200 Ashish Huertas III, MD [address] [place] [address] [place] [id number] 10/14/2023 Ashish Huertas III, MD [address] [place] [address] [place] [address] 12/26/2022 Ashish Huertas Tobacco dependence F17.200 ; Porphyria cutanea tarda E80.1 ; Peripheral arterial disease I73.9 ; BPH (benign prostatic hyperplasia) N40.0 and Lumbar radiculopathy, right M54.16 Ashish Huertas III, MD [address] [place] [address] [place] [address] 12/29/2022 Ashish Huertas Lumbar radiculopathy , right M54.16 ; Tobacco dependence F17.200 ; BPH (benign prostatic hyperplasia) N40.0 ; Peripheral arterial disease I73.9 and COPD (chronic obstructive pulmonary disease) J44.9 Ashish Huertas III, MD [address] [place] [address] [place] [address] 01/15/2023 Ashish Huertas COPD (chronic obstructive pulmonary disease) J44.9 ; Hypertension I10 ; BPH (benign prostatic hyperplasia) N40.0 ; Peripheral arterial disease I73.9 ; Tobacco dependence F17.200 ; Porphyria cutanea tarda E80.1 and Lumbar radiculopathy, right M54.16 Ashish Huertas III, MD [address] [place] [address] [place] [address] 07/16/2023 Ashish Huertas Tobacco dependence F17.200 ; Porphyria cutanea tarda E80.1 ; Peripheral arterial disease I73.9 ; BPH (benign prostatic hyperplasia) N40.0 ; Hypertension I10 ; Lumbar radiculopathy, right M54.16 and Acute diffuse otitis externa of both ears H60.313 Ashish Huertas III, MD [address] [place] [address] [place] [address] 10/21/2023 Ashish Huertas ASSESSMENTS Encounter Date Diagnosis Assessment Notes Treatment Notes Treatment Clinical Notes 09/23/2023 Tobacco dependence (ICD-10 - F17.200) He has smoked a package of cigarettes per day for 40 years. He has known COPD. We discussed smoking cessation strategies. This current regimen was continued. 09/23/2023 Left low back pain, unspecified chronicity, unspecified whether sciatica present (ICD-10 - M54.50) His back pain is chronic and intermittent. It is mild today. He was continuing current therapy. He did not wish to undergo more x-rays at this time. 12/23/2022 Lumbar radiculopathy (ICD-10 - M54.16) He will rest out of work for a week. She will avoid undue walking or lifting. He will be treated with tramadol and gabapentin and dexamethasone. 12/23/2022 COPD (chronic obstructive pulmonary disease) (ICD-10 - J44.9) He has this diagnosis from previous physicians. He is short of breath with prolonged exertion. We discussed smoking cessation as the primary treatment. He has an albuterol inhaler which I have refilled. 02/20/2023 COPD (chronic obstructive pulmonary disease) (ICD-10 - J44.9) His breathing is currently unimpaired. He denies any wheezing or shortness of breath with activities of daily life. He continues to smoke cigarettes, however. We discussed smoking cessation. I reviewed with him the importance of reducing and eliminating the use of tobacco. We have reviewed the health consequences of continued smoking, which include lung cancer, COPD, oxygen dependence, etc. 02/20/2023 Lumbar radiculopathy, right (ICD-10 - M54.16) The pain is almost resolved and he has returned to work. He will be very careful with lifting and exertion. 03/03/2023 Lumbar radiculopathy, right (ICD-10 - M54.16) The pain is almost resolved and he has returned to work. He will be very careful with lifting and exertion. 03/03/2023 Skin tear of right forearm without complication, initial encounter (ICD-10 - S51.811A) The wound was cleaned with peroxide. It was bandaged with triple antibiotic. He was instructed on daily care. 07/03/2023 Ear pain, left (ICD-10 - H92.02) There is a localized skin infection. Doxycycline was prescribed and a culture was done. 07/03/2023 Lumbar radiculopathy, right (ICD-10 - M54.16) This pain has now resolved. 01/29/2023 Tobacco dependence (ICD-10 - F17.200) He has smoked a package of cigarettes per day for 40 years. He has known COPD. We discussed smoking cessation strategies. This current regimen was continued. 01/29/2023 Lumbar radiculopathy, right (ICD-10 - M54.16) He has had no exacerbation of pain apparently through exertion at work. He will resume the heat and rest, gabapentin, and dexamethasone. 09/08/2023 Tobacco dependence (ICD-10 - F17.200) He has smoked a package of cigarettes per day for 40 years. He has known COPD. We discussed smoking cessation strategies. This current regimen was continued. 12/26/2022 Porphyria cutanea tarda (ICD-10 - E80.1) The diagnosis of porphyria was made by a group reservations coordinator at [facility]. He affirms that if he goes into direct sunlight. He will experience blisters and skin lesions. He is well versed in how to prevent this and has medications for his skin. 12/26/2022 Tobacco dependence (ICD-10 - F17.200) He has smoked a package of cigarettes per day for 40 years. He has known COPD. We discussed smoking cessation strategies. This current regimen was continued. 12/29/2022 Tobacco dependence (ICD-10 - F17.200) He has smoked a package of cigarettes per day for 40 years. He has known COPD. We discussed smoking cessation strategies. This current regimen was continued. 12/29/2022 Lumbar radiculopathy, right (ICD-10 - M54.16) The pain continues to improve. He was continued on current therapy. If he continues to improve by next Thursday. He will be allowed to return to work. 01/15/2023 Hypertension (ICD-10 - I10) He was given an appointment to return to the office to measure his vital signs in the near future. 01/15/2023 COPD (chronic obstructive pulmonary disease) (ICD-10 - J44.9) His breathing is currently unimpaired. He denies any wheezing or shortness of breath with activities of daily life. He continues to smoke cigarettes, however. We discussed smoking cessation. 07/16/2023 Porphyria cutanea tarda (ICD-10 - E80.1) The diagnosis of porphyria was made by a group reservations coordinator at [facility]. He affirms that if he goes into direct sunlight. He will experience blisters and skin lesions. He is well versed in how to prevent this and has medications for his skin. 07/16/2023 Tobacco dependence (ICD-10 - F17.200) He has smoked a package of cigarettes per day for 40 years. He has known COPD. We discussed smoking cessation strategies. This current regimen was continued. 09/23/2023 Leg numbness (ICD-10 - R20.0) The numbness in the left leg, which he experiences with lying down is likely nerve compression in the lumbar spine. If it worsens. Images will be obtained. 12/23/2022 Hypertension (ICD-10 - I10) His blood pressure today is in the normal range at 128/62. No change was made to his regimen. His weight is stable. I recommended sodium restriction. 02/20/2023 Hypertension (ICD-10 - I10) His blood pressure today was stable at 140/78 and no change in his regimen was made. I recommended regular physical activity, without heavy lifting, or lumbar strain and aggressive sodium restriction. 07/03/2023 BPH (benign prostatic hyperplasia) (ICD-10 - N40.0) He rises from sleep once or twice a night to urinate. We continued our discussion on lifestyle modification is awake to reduce nocturnal awakening to urinate. 01/29/2023 Porphyria cutanea tarda (ICD-10 - E80.1) The diagnosis of porphyria was made by a group reservations coordinator at [facility]. He affirms that if he goes into direct sunlight. He will experience blisters and skin lesions. He is well versed in how to prevent this and has medications for his skin. 12/26/2022 Peripheral arterial disease (ICD-10 - I73.9) He recently had a femoral-popliteal bypass graft for claudication. 12/29/2022 BPH (benign prostatic hyperplasia) (ICD-10 - N40.0) He rises from sleep once or twice a night to urinate. We discussed lifestyle modification as a means of reducing nocturia. 01/15/2023 BPH (benign prostatic hyperplasia) (ICD-10 - N40.0) He rises from sleep once or twice a night to urinate. We continued our discussion on lifestyle modification is awake to reduce nocturnal awakening to urinate. 07/16/2023 Peripheral arterial disease (ICD-10 - I73.9) He saw the vascular surgeon recently. No invasive procedures are planned. Surveillance will continue. He will be seeking again in June 2023. The left leg was pink and warm. 09/23/2023 Hypertension (ICD-10 - I10) His blood pressure is currently stable at 132/80. No change in his regimen was made. I encouraged hiim to puursue aggressive sodium restriction. 12/23/2022 BPH (benign prostatic hyperplasia) (ICD-10 - N40.0) He rises from sleep once or twice a night to urinate. We discussed lifestyle modification as a means of reducing nocturia. 02/20/2023 BPH (benign prostatic hyperplasia) (ICD-10 - N40.0) He rises from sleep once or twice a night to urinate. We continued our discussion on lifestyle modification is awake to reduce nocturnal awakening to urinate. 07/03/2023 Peripheral arterial disease (ICD-10 - I73.9) He saw the vascular surgeon recently. No invasive procedures are planned. Surveillance will continue. He will be seeking again in June 2023. The left leg was pink and warm. 01/29/2023 Peripheral arterial disease (ICD-10 - I73.9) He saw the vascular surgeon recently. No invasive procedures are planned. Surveillance will continue. 12/26/2022 BPH (benign prostatic hyperplasia) (ICD-10 - N40.0) He rises from sleep once or twice a night to urinate. We discussed lifestyle modification as a means of reducing nocturia. 12/29/2022 Peripheral arterial disease (ICD-10 - I73.9) He recently had a femoral-popliteal bypass graft for claudication. 01/15/2023 Peripheral arterial disease (ICD-10 - I73.9) He saw the vascular surgeon recently. No invasive procedures are planned. Surveillance will continue. 07/16/2023 BPH (benign prostatic hyperplasia) (ICD-10 - N40.0) He rises from sleep once or twice a night to urinate. We continued our discussion on lifestyle modification is awake to reduce nocturnal awakening to urinate. 09/23/2023 BPH (benign prostatic hyperplasia) (ICD-10 - N40.0) He rises from sleep once or twice a night to urinate. We have discussed lifestyle modification as a way to relieve nocturnal urinating. 12/23/2022 Peripheral arterial disease (ICD-10 - I73.9) He recently had a femoral-popliteal bypass graft for claudication. 02/20/2023 Peripheral arterial disease (ICD-10 - I73.9) He saw the vascular surgeon recently. No invasive procedures are planned. Surveillance will continue. He will be seeking again in June 2023. The left leg was pink and warm. 07/03/2023 Porphyria cutanea tarda (ICD-10 - E80.1) The diagnosis of porphyria was made by a group reservations coordinator at [facility]. He affirms that if he goes into direct sunlight. He will experience blisters and skin lesions. He is well versed in how to prevent this and has medications for his skin. 01/29/2023 BPH (benign prostatic hyperplasia) (ICD-10 - N40.0) He rises from sleep once or twice a night to urinate. We continued our discussion on lifestyle modification is awake to reduce nocturnal awakening to urinate. 12/26/2022 Lumbar radiculopathy, right (ICD-10 - M54.16) The pain continues to improve. He was continued on current therapy. If he continues to improve by next Thursday. He will be allowed to return to work. 12/29/2022 COPD (chronic obstructive pulmonary disease) (ICD-10 - J44.9) He has this diagnosis from previous physicians. He is short of breath with prolonged exertion. We discussed smoking cessation as the primary treatment. He has an albuterol inhaler which I have refilled. 01/15/2023 Tobacco dependence (ICD-10 - F17.200) He has smoked a package of cigarettes per day for 40 years. He has known COPD. We discussed smoking cessation strategies. This current regimen was continued. 07/16/2023 Hypertension (ICD-10 - I10) His blood pressure today was stable at 128/80 and no change in his regimen was made. I recommended regular physical activity, without heavy lifting, or lumbar strain and aggressive sodium restriction. 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 He affirms that if he goes into direct sunlight. He will experience blisters and skin lesions. He is well versed in how to prevent this and has medications for his skin. 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 He affirms that if he goes into direct sunlight. He will experience blisters and skin lesions. He is well versed in how to prevent this and has medications for his skin. 07/03/2023 Tobacco dependence (ICD-10 - F17.200) He has smoked a package of cigarettes per day for 40 years. He has known COPD. We discussed smoking cessation strategies. This current regimen was continued. 01/29/2023 COPD (chronic obstructive pulmonary disease) (ICD-10 - J44.9) His breathing is currently unimpaired. He denies any wheezing or shortness of breath with activities of daily life. He continues to smoke cigarettes, however. We discussed smoking cessation. 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 He affirms that if he goes into direct sunlight. He will experience blisters and skin lesions. He is well versed in how to prevent this and has medications for his skin. 07/16/2023 Lumbar radiculopathy, right (ICD-10 - M54.16) This pain has now resolved. 12/23/2022 Tobacco dependence (ICD-10 - F17.200) He has smoked a package of cigarettes per day for 40 years. He has known COPD. We discussed smoking cessation strategies. This current regimen was continued. 01/29/2023 Hypertension (ICD-10 - I10) His blood pressure today was stable at 130/70, and no change in his regimen was made. 01/15/2023 Lumbar radiculopathy, right (ICD-10 - M54.16) The pain continues to improve. He was continued on current therapy. If he continues to improve by next Thursday. He will be allowed to return to work. 07/16/2023 Acute diffuse otitis externa of both ears (ICD-10 - H60.313) He will finish the doxycycline and then resume normal activities. Infection is resolving. PLAN OF TREATMENT Pending Test Test Name Order Date PROFILE, FASTING (COMPREHENSIVE METABOLI C) 01/15/2023 PROFILE, FASTING (COMPREHENSIVE METABOLI C) 09/15/2022 PROFILE, FASTING (COMPREHENSIVE METABOLI C) 09/23/2023 LIPID PANEL 01/15/2023 LIPID PANEL 09/15/2022 PSA, TOTAL 09/23/2023 PSA, TOTAL 01/15/2023 PSA, TOTAL 09/15/2022 CBC w DIFF 09/23/2023 CBC w DIFF 01/15/2023 CBC w DIFF 09/15/2022 XR LUMBAR SPINE 09/23/2023 VITAMIN D 25-OH TOTAL 09/15/2022 Lipid Panel 09/23/2023 Next Appt Details Provider Name:Ashish Huertas, 10/26/2023 02:30:00 PM, [address] [place] [address] [address], [place], [phone], Provider Name:Ashish Huertas, 01/20/2024 10:15:00 AM, [address] [place] [address] [address], [place], [phone], Provider Name:Ashish Huertas, 09/26/2024 09:30:00 AM, [address] [place] [address] [address], [place], [phone], Insurance Providers Payer Name Payer Address Payer Phone Subscriber Number Group Number Insured Name Patient Relationship to Insured Coverage Start Date Coverage End Date [facility] [address] [place], [place] [id number] Sid Landeros Self - patient is the insured [employer] [address] [place] [phone] [id number] Sid Landeros Self - patient is the insured MEDICAL (GENERAL) HISTORY Medical History History ICD Code COPD (chronic obstructive pulmonary dise ase) J44.9 Hypertension I10 Erectile dysfunction Peripheral vascular disease Environmental allergies History of repaired pilonidal cyst Excised lipoma, left triceps, age 8 Porphyria cutanea kurtis, Dr. Brady, [facility] Tobacco dependence Covid19 infection 2021 COPD Surgical History Surgery Date(Month/Year) Arterial Bipass 05/2022 Colonoscopy, [facility], Dr. Ramos Fracture of 2 fingers Repair of pilonidal cyst Excision of lipoma, left triceps, age 8 [place]ophagogastricduod[place] [place]
[2023-10-21] MEDS: 0.9 % Sodium Chloride 1,000 ML 100 ML IVCONT (06:37)
[2023-10-21 06:44] LABS: MANUAL DIFF FLAG NO
[2023-10-21 06:51] LABS: Basophils Percent Auto 1.2 % (0-2); Eosinophils Absolute Auto 0.1 X10*3/uL (0.0-0.4); Eosinophils Percent Auto 2.7 % (0-4); Hematocrit 39.2 % (42.0-52.0); Hemoglobin 13.5 g/dl (14.0-18.0); Imm Gran Abs Auto 0.02 X10*3/uL (0.00-0.03); Imm Gran Pct Auto 0.6 % (0.0-0.4); Lymphocytes Absolute Auto 1.1 X10*3/uL (1.2-4.9); Lymphocytes Percent Auto 32.2 % (20-40); Mean Corpuscular HGB Conc 34.4 g/dl (31.0-36.0); Mean Corpuscular Hemoglobin 30.4 pg (27.0-33.0); Mean Corpuscular Volume 88.3 fL (80.0-98.0); Mean Platelet Volume 8.6 fL (9.4-12.4); Monocytes Absolute Auto 0.5 X10*3/uL (0.1-1.2); Neutrophils Absolute Auto 1.6 x10*3/uL (2.0-8.3); Neutrophils Percent Auto 47.3 % (45-73); Platelet Count 230 X10*3/uL (160-400); Red Blood Count 4.44 X10*6/uL (4.60-5.80); White Blood Count 3.4 X10*3/uL (4.8-10.8)
[2023-10-21 07:35] LABS: Blood Urea Nitrogen 4 mg/dL (9-16); Creatinine Clr Calc Pharmacy 111.2; Estimated Glomerular Filt Rate > 60
--- NOTE | 2023-10-21 09:37 | W.PM.OPN ---
Operative Note Operative Note Date of Service: 10/21/23 Narrative: Angiogram report from [facility] Preoperative diagnosis: Atherosclerosis of left lower extremity with activity limiting claudication 2. Occluded bypass graft Postoperative diagnosis: Same Procedure: 1. Ultrasound-guided right common femoral access 2. Aortogram with left lower extremity runoff 3. Left external iliac plasty Surgeon:Jhony Orr M.D., FACS, RPVI Engine Room Operator:None Anesthesia: Local with moderate conscious sedation. Total intraservice moderate sedation time was 42 minutes. I monitored the patient's level of consciousness and physiologic status continuously throughout the procedure. Specimens:none Drains:none Estimated blood loss: Less than 10 ml Implant: Medtronic Impact DCB 8 x 40 Indications: Pleasant 62-year-old gentleman with a prior history fem-pop bypass presents with 2-3 months leg pain. On CT scan was concerning for inflow disease. Now presents for endovascular intervention The patient has signed the informed consent after reviewing risks, complications, benefits, and alternatives previously discussed with the patient. The patient was given the opportunity to ask any additional questions or voice any concerns. All questions were answered to the patient's satisfaction. Procedure in detail: Patient was brought to the angiography suite prior to which a time-out was called for patient identification and site verification. Bilateral groins were prepped and draped in the standard surgical fashion. Under ultrasound guidance right common femoral was punctured with micro puncture needle and wire. Subsequently a precision 4 Kittitian sheath was then placed. Bentson wire was advanced to the level of the aorta. 4 Kittitian Flush catheter was brought up and parked at the level of the renal arteries. Aortogram was then undertaken. Catheter was brought down to the level of the iliac bifurcation. Iliacs were subsequently imaged. Catheter was then brought in up and over to the left side profunda femoris. Runoff study was then undertaken. Once this was all accomplished we recognized that he had high-grade external iliac stenosis. At this time 5000 units of systemic heparin was administered. Up and over 6 Kittitian sheath was then placed. We then advanced a Glidewire advantage through this high-grade external iliac stenosis. We were able to easily traverse this. Once this was accomplished we initially plasty this with a 7 x 20 balloon. We then brought in an 8 x 40 drug coated balloon. This was brought into position in under 3 minutes and insufflated for a total of 3 minutes in duration. Once this was accomplished completion angiogram demonstrated excellent result. Catheter wire sheath was brought back to the ipsilateral side. StarClose closure device was deployed. Patient tolerated the procedure well. Returned to recovery with stable vitals. Interpretation of films: 1. Ultrasound demonstrates appropriate femoral puncture. Image of which was saved. 2. Aortogram demonstrates appropriate caliber aorta. Minimal disease. Appropriate take-off of the renals. 3. Iliac images demonstrate left external iliac high-grade stenosis 4. Left Leg Common femoral artery: No significant disease Profundus Femoris: No significant disease Superficial femoral artery: Occluded, bypass graft was also occluded Popliteal artery (p1,p2,p3): Reconstitutes at the above knee popliteal P1 segment Anterior tibial artery: Dominant runoff Peroneal artery: Patent but diminutive Posterior tibial artery: Occluded Dorsalis pedis/plantar arch: Incomplete Conclusion: 1. Successful plasty of external iliac. Will need operative intervention of fem-pop bypass. 2. Anticoagulation status: Continue aspirin and Plavix This note is constructed using voice recognition software. While every effort has been made to ensure accuracy, wire loop machine operator errors may have been included. Thank you for allowing me to participate in the care of your patient. Yours sincerely, Jhony Orr MD, FACS, R.P.V.I.
[2023-10-21] MEDS: Clopidogrel Bisulfate 300 MG TABLET PO (10:00)
== END 2023-10-21 11:04 | disposition home or self-care (01) ==
PROVIDERS: PCP Internal Medicine Medical Oncology; Visit Provider Surgery Vascular Surgery
DX: I70.212 Atherosclerosis of native arteries of extremities with intermittent claudication, left leg (principal); R20.0 Anesthesia of skin; I74.5 Embolism and thrombosis of iliac artery; I10 Essential (primary) hypertension; J44.9 Chronic obstructive pulmonary disease, unspecified; R06.02 Shortness of breath; R01.1 Cardiac murmur, unspecified; E83.110 Hereditary hemochromatosis; E80.1 Porphyria cutanea tarda; Z79.02 Long term (current) use of antithrombotics/antiplatelets; Z79.82 Long term (current) use of aspirin; F10.10 Alcohol abuse, uncomplicated; F17.210 Nicotine dependence, cigarettes, uncomplicated
CPT/HCPCS: 36415; 37220; 75630; 76937; 82565; 84520; 85025; 99152; 99153; J1644; J2250; J2310; J3010; Q9967

== ENCOUNTER → 2023-10-21 06:06 | Outpatient (BNV) | payer BC, OTHER, SELFPAY | PROVIDERS: PCP Internal Medicine Medical Oncology; Visit Provider Surgery Vascular Surgery | DX: I70.302 Unspecified atherosclerosis of unspecified type of bypass graft(s) of the extremities, left leg (principal) | CPT/HCPCS: 37224; 75625; 75710; 76937; 99152 ==

== ENCOUNTER 2023-10-27 11:09 | Outpatient (AMB) | payer BC, OTHER, SELFPAY ==
--- NOTE | 2023-10-27 11:10 | MHC.OFFVIS ---
Intake Vital Signs 10/27/23 11:11 Height 5 ft 10 in Weight 170 lb BMI 24.4 BP 130/82 Blood Pressure Location Lt brachial Position Sitting Pulse 85 Pulse Source Pulse Oximeter Pulse Oximetry (%) 98 Oxygen Delivery Method Room Air Intake Visit Reasons: Follow up angio Intake Note: Pt presents to the office today for a follow up angio. Pt states he is still having pain in his left leg everyday. Pt denies any swelling. Pt also states that his left foot is still going numb. Allergies nabumetone Adverse Reaction (Unknown, Verified 10/27/23 11:12) green stools HPI Follow up angio HPI Details Pleasant 62-year-old gentleman presents for follow-up status post angiogram with left external iliac plasty. He had a prior fem-pop bypass which has gone on to occlude. He now presents for follow-up. He has had no significant interval changes. [facility] Medical History Porphyria cutanea tarda Hereditary hemochromatosis Nicotine dependence, cigarettes, uncomplicated Murmur SOB (shortness of breath) ETOH abuse Arthritis GERD (gastroesophageal reflux disease) HTN (hypertension) COPD (chronic obstructive pulmonary disease) Tubular adenoma of colon Surgical History History of femoropopliteal bypass History of colonoscopy S/P angiogram of extremity History of esophagogastroduodenoscopy History of lipoma History of skin graft History of removal of cyst History of foot surgery Family History Father Diabetes Stroke Hypertension Mother Chronic mental illness Family/Other FH: mental illness Social History Household Members: Spouse Housing: House Are you a primary housekeeper child care to a significant other at home: No Do you presently have visiting nurse or other home services: No Alcohol intake: current Alcohol intake frequency: a few times a month Alcohol type: beer Patient Tobacco Use Status: Current everyday Tobacco user Tobacco use type: Cigarette Cigarette Packs Per Day: 1 Cigarettes Per Day: 15 Years Smoked: (current smoker, onset 17yo, 1ppd x 45yrs, 45pyh) e-Cigarette/Vaping Use: Never Used Second Hand Smoke Exposure: Yes service: Yes ([employer]) Current occupational status: employed 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 occupational exposures/hazards: No Cognitive needs: No Hearing needs: No Vision needs: Yes Review of Systems Const All systems reviewed & are unremarkable except as noted in HPI and below Reports no additional complaints ENT Reports Normal hearing present Card Denies chest pain, Denies chest pain at rest, Denies chest pain with activity and Denies pedal edema Resp Denies cough GI Denies abdominal pain Musc Denies abnormal gait, Denies muscle cramps and Denies radiating pain into limb Skin/Breast Denies skin ulcer and Denies wounds Neuro Reports Normal hearing present and Denies abnormal gait Psych Reports no additional complaints Physical Exam Vital Signs: Last Vital Signs Pulse 85 10/27/23 11:11 BP 130/82 10/27/23 11:11 Pulse Ox 98 10/27/23 11:11 Oxygen Delivery Method Room Air 10/27/23 11:11 BMI result Body Mass Index 24.4 Const General: cooperative, healthy appearing and comfortable Orientation/consciousness: oriented to person, oriented to place and oriented to time HEENT Head: Yes normal to inspection Neck Neck: Yes normal visual inspection Carotids: no bruits Chest Chest palpation & inspection: normal inspection of the chest Resp Effort & Inspection: normal respiratory effort and able to speak in complete sentences Auscultation: clear to auscultation bilaterally, no crackles, no rales, no rhonchi and no wheezes Cardio Other: Left DP signals Rate: regular rate Rhythm: regular rhythm Heart sounds: S1 normal heart sound present and S2 normal heart sound present Bruits: no carotid bruits Peripheral pulses: Peripheral pulses 2+ throughout GI Inspection: Yes normal to inspection Skin Wounds: no wounds Hair: normal Neuro General: oriented to person, oriented to place and oriented to time Cranial nerves: Yes CN's II-XII intact bilaterally and Yes Normal hearing present Cognition (Neuro): normal cognition Motor exam (neuro): 5/5 motor strength present throughout Extrem Other: venous exam: No significant superficial varicosities or spider telangiectasias, minimal edema General: No clubbing, No cyanosis and No edema Psych Appearance: grossly normal Mental Status: mental status grossly normal Speech and movement: Normal speech and movement present Assessment & Plan Assessment & Plan (1) PAD (peripheral artery disease): Comment: 06/16/2022 - left femoral to popliteal bypass 10/21/2023 - Left external iliac plasty Code(s): I73.9 - Peripheral vascular disease, unspecified Plan: In short patient has an occluded left fem-pop bypass. He will require left femoral to popliteal bypass revision with possible endovascular intervention. Risks benefits complications were discussed in detail with the patient he understood and consented. We will try to expedite this. Thank you for allowing us to assist in his care. If there are any questions or concerns please do not hesitate to contact us. Coding Level of Care Code Est Pt Level 4 (27156) Diagnoses PAD (peripheral artery disease) I73.9
[2023-10-27 11:11] VITALS: BP 130/82; PULSE 85; O2SAT 98; BMI 24.4
== END 2023-10-27 11:46 | disposition home or self-care (01) ==
PROVIDERS: PCP Internal Medicine Medical Oncology; Visit Provider Surgery Vascular Surgery
DX: T82.392A Other mechanical complication of femoral arterial graft (bypass), initial encounter (principal); I73.9 Peripheral vascular disease, unspecified
CPT/HCPCS: 99214

== ENCOUNTER → 2023-10-27 11:09 | Outpatient (BNVA) | payer BC, OTHER, SELFPAY | PROVIDERS: PCP Internal Medicine Medical Oncology; Visit Provider Surgery Vascular Surgery ==

== ENCOUNTER → 2023-11-02 08:53 | Outpatient (BNV) | payer BC, OTHER, SELFPAY | PROVIDERS: PCP Internal Medicine Medical Oncology; Visit Provider Surgery Vascular Surgery | DX: I73.9 Peripheral vascular disease, unspecified (principal); J41.0 Simple chronic bronchitis; I10 Essential (primary) hypertension; E83.110 Hereditary hemochromatosis | CPT/HCPCS: 34201; 99024 ==

== ENCOUNTER 2023-11-02 09:12 | Inpatient (IN) | payer BC, OTHER, SELFPAY ==
[2023-10-28 13:04] VITALS: BP 165/78; PULSE 80; RESP 16; O2SAT 99; BMI 24.4
[2023-10-28 14:10] LABS: Hematocrit 38.5 % (42.0-52.0); Hemoglobin 13.3 g/dl (14.0-18.0); Mean Corpuscular HGB Conc 34.5 g/dl (31.0-36.0); Mean Corpuscular Hemoglobin 30.4 pg (27.0-33.0); Mean Corpuscular Volume 88.1 fL (80.0-98.0); Platelet Count 250 X10*3/uL (160-400); Red Blood Count 4.37 X10*6/uL (4.60-5.80); Red Cell Distribution Width 12.8 % (11.0-16.0); White Blood Count 3.6 X10*3/uL (4.8-10.8)
[2023-10-28 14:16] LABS: Prothrombin Time 11.6 SEC (11.1-13.3)
[2023-10-28 14:43] LABS: Anion Gap 13 (12-20); Blood Urea Nitrogen 6 mg/dL (9-16); Calcium 9.9 mg/dL (8.4-10.2); Carbon Dioxide 26 mmol/L (22-29); Chloride 99 mmol/L (96-108); Creatinine Clr Calc Pharmacy 111.2; Estimated Glomerular Filt Rate > 60; Glucose Random 102 mg/dL (60-115); Potassium 4.1 mmol/L (3.3-5.1); Sodium 134 mmol/L (135-145)
--- NOTE | 2023-10-30 12:01 | P.CONAN_ITS ---
Documented by User: Suni Bermudez NP 10/30/23 12:07 HPI - Anesthesia Eval Consult details Narrative: 62yo M for Left Femoral Femoral Bypass Revision Cardiac cleared if no new symptoms. Last office visit 05/2023 Pt not seen by provider in PAT. RN visit only. Hereditary hemochromatosis. Last therapeutic phleb 08/2023 Plavix for PAD PMFSH Active Problems Active Problems: All Active Problems (Updated 10/28/23 @ 13:43 by Lily Membreno RN) Bilateral carotid artery stenosis (Acute) Hemorrhoids (Acute) Diverticulosis of colon (Acute) Hyperlipidemia (Acute) PVD (peripheral vascular disease) (Acute) Tingling of left upper extremity (Acute) PAD (peripheral artery disease) (Acute) Varicose veins of right lower extremity with inflammation (Acute) HTN (hypertension) (Acute) Erectile dysfunction (Acute) COPD (chronic obstructive pulmonary disease) (Acute) HTN (hypertension) (Acute) Nicotine dependence, cigarettes, uncomplicated (Acute) Hereditary hemochromatosis (Acute) Porphyria cutanea tarda (Acute) GERD (gastroesophageal reflux disease) (Acute) Tubular adenoma of colon (Acute) Past Medical History Medical History (Updated 10/28/23 @ 13:43 by Lily Membreno RN) Porphyria cutanea tarda Hereditary hemochromatosis Nicotine dependence, cigarettes, uncomplicated Murmur SOB (shortness of breath) ETOH abuse Arthritis GERD (gastroesophageal reflux disease) HTN (hypertension) COPD (chronic obstructive pulmonary disease) Tubular adenoma of colon Family History Family History Father Diabetes Stroke Hypertension Mother Chronic mental illness Family/Other FH: mental illness Family history of problems with anesthesia: No Surgical History Surgical History History of femoropopliteal bypass History of colonoscopy S/P angiogram of extremity History of esophagogastroduodenoscopy History of lipoma History of skin graft History of removal of cyst History of foot surgery History of Problems with Anesthesia: No Social History Social History (Updated 10/28/23 @ 13:48 by Lily Membreno RN) Household Members: Spouse Housing: House Are you a primary lawn care professional to a significant other at home: No Do you presently have visiting nurse or other home services: No Alcohol intake: current Alcohol intake frequency: a few times a month Alcohol type: beer Patient Tobacco Use Status: Current everyday Tobacco user Tobacco use type: Cigarette Cigarette Packs Per Day: 1 Cigarettes Per Day: 20 Years Smoked: 35 Smoked in Last 30 Days: Yes e-Cigarette/Vaping Use: Never Used Patient Interested in Nicotine Replacement: Yes Patient Given Instructions on How to Stop Smoking: Yes Date Education Initiated: 10/28/23 Second Hand Smoke Exposure: Yes Use of substances other than those prescribed or required for medical reasons: No Have you been hit, kicked, punched, or otherwise hurt by someone within the past year? 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 occupational exposures/hazards: No Cognitive needs: No Hearing needs: No Vision needs: Yes Meds Allergies Allergy/AdvReac Type Severity Reaction Status Date / Time nabumetone AdvReac Unknown green Verified 11/02/23 09:18 stools Home Medications Medication Instructions Recorded Confirmed Last Taken Type methylcellulose (laxative) 500 mg 500 mg PO DAILY 12/30/22 11/02/23 Unknown History tablet (Citrucel) ipratropium 20 mcg-albuterol 100 1 puff inhalation Q6H PRN COPD 10/28/23 11/02/23 Unknown History mcg/actuation mist for inhalation (Combivent Respimat) Exam Height,Weight and Vital Signs: Height 5 ft 10 in Weight 77.111 kg Last Vital Signs Pulse 80 10/28/23 13:04 Resp 16 10/28/23 13:04 BP 165/78 H 10/28/23 13:04 Pulse Ox 99 10/28/23 13:04 O2 Del Method Room Air 10/28/23 13:04 Pertinent Lab Results Pertinent Lab Results: Laboratory Tests 10/28/23 10/28/23 13:45 13:46 WBC 3.6 L RBC 4.37 L Hgb 13.3 L Hct 38.5 L MCV 88.1 MCH 30.4 MCHC 34.5 RDW 12.8 Plt Count 250 MPV 9.0 L Absolute Nucleated RBC 0.000 Nucleated RBC % (auto) 0.0 PT 11.6 INR 1.0 APTT 30.0 Sodium 134 L Potassium 4.1 Chloride 99 Carbon Dioxide 26 Anion Gap 13 BUN 6 L Creatinine 0.72 Estim Creat Clear Calc 111.2 Estimated GFR > 60 Random Glucose 102 Calcium 9.9 Blood Type A Positive Antibody Screen NEGATIVE Narrative Narrative: EKG 05/2023 sinus rhythm at 83/Min; rightward axis; no significant ST-T changes and other finch unremarkable. Normal OR and corrected QT. ECHO 05/2022 Conclusions: - 1. Normal LV systolic function with grade 1 diastolic dysfunction 2. Normal cardiac valvular Doppler 3. Normal RV systolic pressure 4. No pericardial effusion NM cardiolite stress test 05/2022 Impression: 1. Myocardial perfusion imaging study shows mild reversible distal anterior/apical defect. Improvement with CT attenuation correction as well as normal contractility suggestive of soft tissue attenuation artifact. Less likely to be from mild ischemia. 2. Gated LVEF is 54% during stress and 53% during rest. Correlate with echocardiogram. 3. Transient ischemic dilatation not present. EKG component of the test reported separately. Assessment and Plan Assessment Anesthesia Assessment: Chart Reviewed Final Anesthetic Review Family History of Problems with Anesthesia: No History of Problems with Anesthesia: No Documented by User: Cassidy Blanton MD 11/02/23 10:15 [facility] Past Medical History Medical History (Updated 10/28/23 @ 13:43 by Lily Membreno RN) Porphyria cutanea tarda Hereditary hemochromatosis Nicotine dependence, cigarettes, uncomplicated Murmur SOB (shortness of breath) ETOH abuse Arthritis GERD (gastroesophageal reflux disease) HTN (hypertension) COPD (chronic obstructive pulmonary disease) Tubular adenoma of colon Family History Family History Father Diabetes Stroke Hypertension Mother Chronic mental illness Family/Other FH: mental illness Surgical History Surgical History History of femoropopliteal bypass History of colonoscopy S/P angiogram of extremity History of esophagogastroduodenoscopy History of lipoma History of skin graft History of removal of cyst History of foot surgery Social History Social History (Updated 10/28/23 @ 13:48 by Lily Membreno RN) Household Members: Spouse Housing: House Are you a primary lawn care professional to a significant other at home: No Do you presently have visiting nurse or other home services: No Alcohol intake: current Alcohol intake frequency: a few times a month Alcohol type: beer Patient Tobacco Use Status: Current everyday Tobacco user Tobacco use type: Cigarette Cigarette Packs Per Day: 1 Cigarettes Per Day: 20 Years Smoked: 35 Smoked in Last 30 Days: Yes e-Cigarette/Vaping Use: Never Used Patient Interested in Nicotine Replacement: Yes Patient Given Instructions on How to Stop Smoking: Yes Date Education Initiated: 10/28/23 Second Hand Smoke Exposure: Yes Use of substances other than those prescribed or required for medical reasons: No Have you been hit, kicked, punched, or otherwise hurt by someone within the past year? 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 occupational exposures/hazards: No Cognitive needs: No Hearing needs: No Vision needs: Yes Meds Allergies Allergy/AdvReac Type Severity Reaction Status Date / Time nabumetone AdvReac Unknown green Verified 11/02/23 09:18 stools Home Medications Medication Instructions Recorded Confirmed Last Taken Type methylcellulose (laxative) 500 mg 500 mg PO DAILY 12/30/22 11/02/23 Unknown History tablet (Citrucel) ipratropium 20 mcg-albuterol 100 1 puff inhalation Q6H PRN COPD 10/28/23 11/02/23 Unknown History mcg/actuation mist for inhalation (Combivent Respimat) Exam Airway Mallampati Class: III TM Dist: >3cm Neck ROM: Full Assessment and Plan Assessment Anesthesia Assessment: Anesthesia Plan Discussed Final Anesthetic Review NPO: Yes ASA Class: III Final Preanesthetic Review: No Changes in Pt Med Stat, Meds/Allgs Chart Reviewed, Consent Obtained/Reviewed and Anes Risks/Benef Reviewed Patient Risk: Intermediate Procedure Risk: Intermediate Anesthetic Plan Anesthetic Plan: GA Disposition: Standard PACU
[2023-11-02] VITALS (20 sets, daily range): BP systolic 105–132; BP diastolic 65–86; PULSE 15–96; RESP 11–16; TEMP 36.5–36.9; O2SAT 93–100; BMI 24.7
--- NOTE | ~2023-11-02 | FL_ITS ---
EXAMINATION: XR FLUOROSCOPY WITH IMAGES CLINICAL INFORMATION: Intraoperative fluoroscopy provided during angiography/intervention COMPARISON: None available. TECHNIQUE: Fluoroscopy Supervised By: Dr. Orr. Fluoroscopy Time: 5.0 minutes Cumulative Dose: 9.69 mGy. DAP: 2.64 Gycm2. Images: 44. FINDINGS: Please refer to procedural note for full details. FL/FL guidance in OR IMPRESSION: Intraoperative fluoroscopy during angiography/intervention.
--- NOTE | 2023-11-02 07:43 | MHC.SHP ---
Pre-Procedural Eval Section A - 24 Hr Update-Section A only Date of Service: 11/02/23 The patient is an INPATIENT: No Changes since office visit: Yes Patient answered all questions The patient has been examined within 24 hours of the surgical procedure. The History & Physical has been completed within 30 days and I have reviewed it.: Yes Section B - Complete if H&P > 30 days Chief Complaint: Occlusion and stenosis of unspecified carotid tenisha Allergies: Allergies Allergy/AdvReac Type Severity Reaction Status Date / Time nabumetone AdvReac Unknown green Verified 10/27/23 11:12 stools Plan I have reviewed the history and physical and performed a pertinent physical examination on my patient. No changes have occurred unless specified. Time Spent With Patient Time: Total time managing care of this patient today ____ minutes.
--- OUTSIDE RECORDS SUMMARY | 2023-11-02 08:55 | XMS_ITS | Patient Health Record ---
Author Name Unknown Organization Ashish Huertas III, MD Address 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 Name Role Phone Ashish Huertas Primary Care Provider ALLERGIES Allergen (clinical drug ingredient) Drug/Non Drug Allergy documented on EMR Reaction Allergy Type Onset Date Status No Known Drug Allergy Unknown Drug Allergy Active RESULTS Component Value Reference Range Notes Complete Blood Count Auto Di ff Reviewed date:07/02/2023 02:52:20 PM Interpretation: Performing Lab:[facility], [address] [place] [phone] Notes/Report: White Blood Count 3.7 4.8-10.8 X10*3/uL [...] Panel Reviewed date:07/02/2023 02:52:20 PM Interpretation: Performing Lab:[address] [address] Notes/Report: Sodium 137 135-145 mmol/L Potassium 4.8 3.3-5.1 mmol/L Chloride 103 96-108 mmol/L Carbon Dioxide 25 22-29 mmol/L Anion Gap 14 12-20 Blood Urea Nitrogen 4 9-16 mg/dL Creatinine 0.77 0.5-1.4 mg/dL Estimated Glomerular Filt Rate > 60 NOTE: For -Bolivian individuals, multiply the result by 1.210. Chronic [...] Acid Reviewed date:07/02/2023 02:52:20 PM Interpretation: Performing Lab:[address] [address] Notes/Report: Uric Acid 4.9 3.4-7.0 mg/dL Lipid Panel Reviewed date:07/02/2023 02:52:20 PM Interpretation: Performing Lab:[address] [place] [address] Notes/Report: Triglycerides 81 Desirable Triglyceride: less than [...] Antigen Reviewed date:07/02/2023 02:52:20 PM Interpretation: Performing Lab:[address] [address] Notes/Report: Prostate Specific Antigen 0.64 <0.05-4.0 ng/mL PSA methodology: Ocyne Alinity i Chemiluminescent Microparticle Immunoassay (CMIA) Vitamin D 25-OH Total Reviewed date:07/02/2023 02:52:20 PM Interpretation: Performing Lab:[address] [address] Notes/Report: Vitamin D 25-OH Total 38.0 >30 ng/mL Health Based Reference Values* < 20 ng/mL Deficient 20-30 ng/mL Insufficient > 30 ng/mL Sufficient *Ash KONWLES. N Engl J Med. 2007;357:266-280 Care must [...] Culture Reviewed date:07/06/2023 05:50:09 PM Interpretation: Performing Lab:[address] [address] Notes/Report: Ear Culture Report - external Ear Culture 2+ Mixed skin wesley O:STAAUR Staphylococcus aureus Ear Culture Quant Ear Culture 2+ Clindamycin <=0.25 Erythromycin <=0.25 Levofloxacin 0.25 Oxacillin <=0.25 Penicillin-G >=0.5 Tetracycline <=1 Trimethoprim/Sulfamethox azole <=10 Gram stain Reviewed date:07/06/2023 05:50:09 PM Interpretation: Performing Lab:[facility], [address] [place] [phone] Notes/Report: Gram stain Gram stain results: Gram stain No polys Gram stain 1+ epithelial cells Gram stain 2+ Gram-positive cocci US KAI complete Reviewed date:09/24/2023 05:55:12 PM Interpretation: Performing Lab: Notes/Report: [address] [place] [address] Ultrasound Report Signed Patient: Sid Landeros MR#: [id number] : 1960 Acct:[id number] Age/Sex: 62 / M ADM Date: 09/07/23 Loc: HO.US Attending Dr: Jhony Orr MD Ordering Physician: Jhony Orr MD Date of Service: 09/07/23 Procedure(s): US KAI complete Accession Number(s): [id number] cc: Ashish Huertas MD; Jhony Orr MD [...] the prior exam. 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 There is interval occlusion [...] in OV> 09/14/23 0935 DD/ 1530 TD/TT: Telecommunications Consultant: US carotid duplex BI Reviewed date:09/24/2023 05:55:12 PM Interpretation: Performing Lab: Notes/Report: [address] [address] Ultrasound Report Signed Patient: Sid Landeros MR#: [id number] : 1960 Acct:[id number] Age/Sex: 62 / M ADM Date: 09/07/23 Loc: HO.US Attending Dr: Jhony Orr MD Ordering Physician: Carlos A Fletcher MD Date of Service: 09/07/23 Procedure(s): US carotid duplex BI Accession Number(s): [id number] cc: Ashish Huertas MD; Carlos A Fletcher [...] in OV> 09/08/23 1037 DD/ 1408 TD/TT: Telecommunications Consultant: DYANA US arterial duplex LE BI Reviewed date:09/24/2023 05:55:12 PM Interpretation: Performing Lab: Notes/Report: [address] [address] Ultrasound Report Signed Patient: Sid Landeros MR#: [id number] : 1960 Acct:[id number] Age/Sex: 62 / M ADM Date: 09/07/23 Loc: HO.US Attending Dr: Jhony Orr MD Ordering Physician: Jhony Orr MD Date of Service: 09/07/23 Procedure(s): US arterial duplex LE BI Accession Number(s): [id number] cc: Ashish Huertas MD; Jhony Orr MD [...] the prior exam. 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 There is interval occlusion [...] in OV> 09/14/23 0935 DD/ 1530 TD/TT: Telecommunications Consultant: US abdominal aortic aneurysm Reviewed date:09/24/2023 05:55:12 PM Interpretation: Performing Lab: Notes/Report: [address] [address] Ultrasound Report Signed Patient: Sid Landeros MR#: [id number] : 1960 Acct:[id number] Age/Sex: 62 / M ADM Date: 09/07/23 Loc: HO. Attending Dr: Jhony Orr MD Ordering Physician: Jhony Orr MD Date of Service: 09/07/23 Procedure(s): US abdominal aortic aneurysm Accession Number(s): [id number] cc: Ashish Huertas MD; Jhony Orr MD [...] the prior exam. 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 There is interval occlusion [...] MD in OV> 09/14/2335 DD/ 1530 TD/TT: Telecommunications Consultant: URINE DIP STICK Reviewed date:09/23/2023 09:45:16 AM [...] POC Reviewed date:10/12/2023 08:41:12 AM Interpretation: Performing Lab:[facility], [address] [place] [address] Notes/Report: [phone] .63 >60 1131 HO.BERCHB Creatinine POC 0.6 0.5-1.4 mg/dL GFR POC > 60 Chronic Kidney Disease: Estimated GFR < 60 mL/min/1.73m2 Severe Kidney Disease: Estimated GFR < 15 mL/min/1.73m2 CT angio abd aorta runoff Reviewed date:10/07/2023 04:23:32 PM Interpretation: Performing Lab: Notes/Report: [address] [address] [address] Scan Report Signed Patient: Sid Landeros MR#: [id number] : 1960 Acct:[id number] Age/Sex: 62 / M ADM Date: 10/07/23 Loc: HO.CT Attending Dr: Jhony Orr MD Ordering Physician: Jhony Orr MD Date of Service: 10/07/23 Procedure(s): CT angio abd aorta runoff Accession Number(s): [id number] cc: Ashish Huertas MD; Jhony Orr MD [...] from the initial data set by the [facility] under concurrent physician supervision. [...] distal external iliac artery with an occluded gambell SFA and femoral-popliteal bypass graft. The popliteal is reconstituted just above the knee joint with two-vessel runoff via the anterior tibial and peroneal arteries. 4. Incidental nonvascular findings as described above including cholelithiasis, sigmoid diverticulosis and BPH. Dictated By: Hardeep Villeda MD Signed By: <Electronically signed by Hardeep Villeda MD in OV> 10/07/23 1314 DD/ 1203 TD/TT: Telecommunications Consultant: DYANA Complete Blood Count Auto Di ff Reviewed date:10/25/2023 08:17:39 AM Interpretation: Performing Lab:[facility], [address] [place] [phone] Notes/Report: White Blood Count 3.4 4.8-10.8 X10*3/uL Red Blood Count 4.44 4.60-5.80 X10*6/uL Hemoglobin 13.5 14.0-18.0 g/dl Hematocrit 39.2 42.0-52.0 % Mean Corpuscular Volume 88.3 80.0-98.0 fL Mean Corpuscular Hemoglobin 30.4 27.0-33.0 pg Mean Corpuscular HGB Conc 34.4 31.0-36.0 g/dl Red Cell Distribution Width 13.0 11.0-16.0 % Platelet Count 230 160-400 X10*3/uL Mean Platelet Volume 8.6 9.4-12.4 fL Neutrophils Percent Auto 47.3 45-73 % Imm Gran Pct Auto 0.6 0.0-0.4 % Lymphocytes Percent Auto 32.2 20-40 % Monocytes Percent Auto 16.0 2-11 % Eosinophils Percent Auto 2.7 0-4 % Basophils Percent Auto 1.2 0-2 % NRBC Pct Auto 0.0 0.0-0.2 /100WBC Neutrophils Absolute Auto 1.6 2.0-8.3 x10*3/uL Imm Gran Abs Auto 0.02 0.00-0.03 X10*3/uL Lymphocytes Absolute Auto 1.1 1.2-4.9 X10*3/uL Monocytes Absolute Auto 0.5 0.1-1.2 X10*3/uL Eosinophils Absolute Auto 0.1 0.0-0.4 X10*3/uL Basophils Absolute Auto 0.0 0.0-0.2 X10*3/uL NRBC Abs Auto 0.000 0.0-0.012 X10*3/uL Blood Urea Nitrogen Reviewed date:10/25/2023 08:17:39 AM Interpretation: Performing Lab:[facility], [address] [place] [address] Notes/Report: Blood Urea Nitrogen 4 9-16 mg/dL Creatinine Reviewed date:10/25/2023 08:17:39 AM Interpretation: Performing Lab:[facility], [address] [place] [phone] Notes/Report: Creatinine 0.72 0.5-1.4 mg/dL Creatinine Clr Calc Pharmacy 111.2 eGFR (calculated from the MDRD study equation) and eCrCl (calculated from the Cockcroft-Gault equation) are based on different parameters and may not yield comparable results. If eCrCl result is absurd, please check patient's height/weight. Estimated Glomerular Filt Rate > 60 NOTE: For -Bolivian individuals, multiply the result by 1.210. Chronic Kidney Disease: Estimated GFR < 60 mL/min/1.73m2 Severe Kidney Disease: Estimated GFR < 15 mL/min/1.73m2 Complete Blood Count no Diff Reviewed date:11/01/2023 08:04:51 AM Interpretation: Performing Lab:[facility], [address] [place] [phone] Notes/Report: White Blood Count 3.6 4.8-10.8 X10*3/uL Red Blood Count 4.37 4.60-5.80 X10*6/uL Hemoglobin 13.3 14.0-18.0 g/dl Hematocrit 38.5 42.0-52.0 % Mean Corpuscular Volume 88.1 80.0-98.0 fL Mean Corpuscular Hemoglobin 30.4 27.0-33.0 pg Mean Corpuscular HGB Conc 34.5 31.0-36.0 g/dl Red Cell Distribution Width 12.8 11.0-16.0 % Platelet Count 250 160-400 X10*3/uL Mean Platelet Volume 9.0 9.4-12.4 fL NRBC Pct Auto 0.0 0.0-0.2 /100WBC NRBC Abs Auto 0.000 0.0-0.012 X10*3/uL Prothrombin Time INR Reviewed date:11/01/2023 08:04:51 AM Interpretation: Performing Lab:[facility], [address] [place] [phone] Notes/Report: Prothrombin Time 11.6 11.1-13.3 SEC INTERNATIONAL NORM RATIO 1.0 0.9-1.1 INTERNATIONAL NORMALIZED RATIO (INR) REFERENCE RANGES Reference Range For patients not on anticoagulant therapy: 0.9 - 1.1 INR ranges for oral anticoagulant therapy: For prevention and treatment of venous thrombosis and pulmonary embolism: 2.0 - 3.0 For acute myocardial infarction with aspirin therapy: 2.0 - 3.0 For acute myocardial infarction without aspirin therapy: 3.0 - 4.0 For patients with mechanical prosthetic heart valves: 2.5 - 3.5 Partial Thromboplastin Time Reviewed date:11/01/2023 08:04:51 AM Interpretation: Performing Lab:[facility], [address] [place] [phone] Notes/Report: Partial Thromboplastin Time 30.0 26.0-36.8 SEC For information regarding the monitoring of direct thrombin inhibitors, please refer to Pharmacy. Basic Metabolic Panel Reviewed date:11/01/2023 08:04:51 AM Interpretation: Performing Lab:[facility], [address] [place] [phone] Notes/Report: Sodium 134 135-145 mmol/L Potassium 4.1 3.3-5.1 mmol/L Chloride 99 96-108 mmol/L Carbon Dioxide 26 22-29 mmol/L Anion Gap 13 12-20 Blood Urea Nitrogen 6 9-16 mg/dL Creatinine 0.72 0.5-1.4 mg/dL Creatinine Clr Calc Pharmacy 111.2 eGFR (calculated from the MDRD study equation) and eCrCl (calculated from the Cockcroft-Gault equation) are based on different parameters and may not yield comparable results. If eCrCl result is absurd, please check patient's height/weight. Estimated Glomerular Filt Rate > 60 NOTE: For -Bolivian individuals, multiply the result by 1.210. Chronic Kidney Disease: Estimated GFR < 60 mL/min/1.73m2 Severe Kidney Disease: Estimated GFR < 15 mL/min/1.73m2 Glucose Random 102 60-115 mg/dL Calcium 9.9 8.4-10.2 mg/dL Type and Screen Reviewed date:11/01/2023 08:04:51 AM Interpretation: Performing Lab:[facility], [address] [place] [phone] Notes/Report: witnessed by [facility] NURSING: Call Blood Bank (ext. [phone]) to band patient on admission. Type and Screen in effect until 2300 on 11-02-2023 Blood Type AP Antibody Screen NEGATIVE REASON FOR REFERRAL Reason Consult and Treat Ri ght Buttock Pain Physical Therapy Diagnosis 1 Lumbar radiculopathy , right (M54.16) Diagnosis 2 Right buttock pain ( M79.18) Referral Organization Ashish Huertas III, MD Referring Provider First Name Ashish Referring Provider Last Name Huertas Referring Provider Speciality Internal edicine Referred Provider [facility] [place] Referred Provider Specialty Physical Med [facility] General Notes SturgisSharon rose 2022 11:09:50 AM EDT > Faxed referral with progress notes. Referral Priority Routine Reason low back pain left leg numbness eval and treatment Diagnosis 1 Numbness (R20.0) Diagnosis 2 Left low back pain, unspecified chronicity, unspecified whether sciatica present (M54.50) Referral Organization Ashish Huertas III, MD Referring Provider First Name Ashish Referring Provider Last Name Aleksandar [facility] Referred Provider [facility] [place] Referred Provider Specialty Physical [facility] General Notes Liat Pinon CMA 10/2023 03:12:36 [...] Duration) Notes Start Date End Date Status Combivent Respimat 20-100 MCG/ACT 1 puff as needed Inhalation every 6 hrs Active Sildenafil Citrate 100 MG Oral Active amLODIPine Besylate 10 MG Oral Active Symbicort 160-4.5 MCG/ACT 2 puffs Inhala tion Twice a day Active Ibuprofen 800 MG Oral Act henrry Sildenafil Citrate 100 MG 1 tablet Orall y Once a day 05/15/2023 Active dexAMETHasone 2 MG 1 tablet Orally ever y 12 hrs 12/22/2022 Active Rosuvastatin Calcium 20 MG 1 tablet Oral ly Once a day Active traZODone HCl 100 MG 1 tablet at bedtime Orally Once a day 09/01/2023 Active Cephalexin 500 MG 1 capsule Orally Fou r times a day 10/14/2023 Active Doxycycline Hyclate 100 MG 1 tablet Oral ly Twice a day 07/03/2023 Active traMADol HCl 50 MG 1 tablet Orally ever y 6 hours prn back pain 12/23/2022 Active Varenicline Tartrate (Starter) 0.5 MG X 11 & 1 MG X 42 as directed Orally as directed 01/30/2023 Active Pantoprazole Sodium 40 MG as directed Or ally Once a day Active IMMUNIZATIONS Vaccine Route Administration Date Status [...] Notes Problem Hypertension (I10) Active confirmed Hypertension (82225195) His blood pressure is currently stable at 132/80. No change in his regimen was made. I encouraged hiim to puursue aggressive sodium restriction. Problem Porphyria cutanea tarda (E80.1) Active confirmed [id number] The diagnosis of porphyria was made by a machine tech at . He affirms that if he goes into direct sunlight. He will experience blisters and skin lesions. He is well versed in how to prevent this and has medications for his skin. Problem BPH (benign prostatic hyperplasia) (N40.0) Active confirmed Benign prostatic hyperplasia (885486008) He rises from sleep once or twice a night to urinate. We have discussed lifestyle modification as a way to relieve nocturnal urinating. Problem Tobacco dependence (F17.200) Active confirmed 17679001 He has smoked a package of cigarettes per day for 40 years. He has known COPD. We discussed smoking cessation strategies. This current regimen was continued. Problem COPD (chronic obstructive pulmonary disease) (J44.9) Active confirmed COPD - Chronic obstructive pulmonary disease (44449042) His breathing is currently unimpaired. He denies [...] etc. Problem Pilonidal cyst (L05.91) Active confirmed 60469384 He had an excision and repair of this cyst years ago. It is healed and no longer bothers him. Problem Peripheral arterial disease (I73.9) Active confirmed [id number] He saw [facility] vascular surgeon recently. His claudication has become worse lately in the left leg. A CT scan and an arteriogram have been done. Noninvasive procedure is planned. Whether this is surgery or angioplasty is unclear at the moment. Problem Lumbar radiculopathy, right (M54.16) Active confirmed 751765451 This pain has now resolved. Problem Acute diffuse otitis externa of both ears (H60.313) Active confirmed 27241499 He will finish the doxycycline and then resume normal activities. Infection is resolving. VITAL SIGNS Heart Rate 90 /min 09/23/2023 Temperature 97.9 degrees Fahrenheit 09/23/2023 Blood pressure diastolic 80 mm Hg 09/23/2023 Height 70 in 09/23/2023 Blood pressure systolic 138 mm Hg 09/23/2023 Weight 167 lbs 09/23/2023 BMI 23.96 kg/m2 09/23/2023 Encounters Encounter Location Date Provider Diagnosis Ashish Huertas III, MD [address] [place] [address] [place] [address] 09/23/2023 Ashish Huertas Tobacco dependence F17.200 ; Left low back pain, unspecified chronicity, unspecified whether sciatica present M54.50 ; Leg numbness R20.0 ; Hypertension I10 and BPH (benign prostatic hyperplasia) N40.0 Ashish Huertas III, MD [address] [place] [address] [place] [address] 12/23/2022 Ashish Huertas Lumbar radiculopathy M54.16 ; COPD (chronic obstructive pulmonary disease) J44.9 ; Hypertension I10 ; BPH (benign prostatic hyperplasia) N40.0 ; Peripheral arterial disease I73.9 ; Porphyria cutanea tarda E80.1 and Tobacco dependence F17.200 Ashish Huertas III, MD [address] [place] [address] [place] [address] 04/17/2023 Ashish Huertas III, MD [address] [place] [address] [place] [address] 02/20/2023 Ashish Huertas Lumbar radiculopathy , right M54.16 ; COPD (chronic obstructive pulmonary disease) J44.9 ; Hypertension I10 ; BPH (benign prostatic hyperplasia) N40.0 ; Peripheral arterial disease I73.9 and Porphyria cutanea tarda E80.1 Ashish Huertas III, MD [address] [place] [address] [place] [address] 05/20/2023 Ashish Huertas III, MD [address] [place] [address] [place] [address] 03/03/2023 Ashish Huertas Lumbar radiculopathy , right M54.16 and Skin tear of right forearm without complication, initial encounter S51.811A Ashish Huertas III, MD [address] [place] [address] [place] [address] 06/02/2023 Ashish Huertas III, MD [address] [place] [address] [place] [address] 07/03/2023 Ashish Huertas Lumbar radiculopathy , right M54.16 ; Ear pain, left H92.02 ; BPH (benign prostatic hyperplasia) N40.0 ; Peripheral arterial disease I73.9 ; Porphyria cutanea tarda E80.1 and Tobacco dependence F17.200 Ashish Huertas III, MD [address] [place] [address] [place] [address] 01/29/2023 Ashish Huertas Lumbar radiculopathy , right M54.16 ; Tobacco dependence F17.200 ; Porphyria cutanea tarda E80.1 ; Peripheral arterial disease I73.9 ; BPH (benign prostatic hyperplasia) N40.0 ; COPD (chronic obstructive pulmonary disease) J44.9 and Hypertension I10 Ashish Huertas III, MD [address] [facility] [place] [address] 12/22/2022 Ashish Huertas III, MD [address] [facility] [place] [address] 12/22/2022 Ashish Huertas III, MD [address] [facility] [place] [address] 01/28/2023 Ashish Huertas III, MD [address] [facility] [place] [address] 01/29/2023 Ashish Huertas III, MD [address] [facility] [place] [address] 02/02/2023 Ashish Huertas III, MD [address] [facility] [place] [address] 03/10/2023 Ashish Huertas III, MD [address] [facility] [place] [address] 03/10/2023 Ashish Huertas III, MD [address] [facility] [place] [address] 03/17/2023 Ashish Huertas III, MD [address] [facility] [place] [address] 03/17/2023 Ashish Huertas III, MD [address] [facility] [place] [address] 05/15/2023 Ashish Huertas III, MD [address] [facility] [place] [address] 05/15/2023 Ashish Huertas III, MD [address] [facility] [place] [address] 07/01/2023 Ashish Huertas III, MD [address] [facility] [place] [address] 09/01/2023 Ashish Huertas III, MD [address] [facility] [place] [address] 09/01/2023 Ashish Huertas III, MD [address] [facility] [place] [address] 09/01/2023 Ashish Huertas III, MD [address] [facility] [place] [address] 09/08/2023 Ashish Huertas Tobacco dependence F17.200 Ashish Huertas III, MD [address] [place] [address] [place] [address] 10/14/2023 Ashish Huertas III, MD [address] [place] [address] [place] [address] 10/28/2023 Ashish Huertas III, MD [address] [place] [address] [place] [address] 12/26/2022 Ashish Huertas Tobacco dependence F17.200 ; Porphyria cutanea tarda E80.1 ; Peripheral arterial disease I73.9 ; BPH (benign prostatic hyperplasia) N40.0 and Lumbar radiculopathy, right M54.16 Ashish Huertas III, MD [address] [place] [address] [place] [address] 12/29/2022 Ashish Huertas Lumbar radiculopathy , right M54.16 ; Tobacco dependence F17.200 ; BPH (benign prostatic hyperplasia) N40.0 ; Peripheral arterial disease I73.9 and COPD (chronic obstructive pulmonary disease) J44.9 Ashish Huertas III, MD [address] [place] [address] [place] [address] 01/15/2023 Ashish Huertas COPD (chronic obstructive pulmonary disease) J44.9 ; Hypertension I10 ; BPH (benign prostatic hyperplasia) N40.0 ; Peripheral arterial disease I73.9 ; Tobacco dependence F17.200 ; Porphyria cutanea tarda E80.1 and Lumbar radiculopathy, right M54.16 Ashish Huertas III, MD [address] [place] [address] [place] [address] 07/16/2023 Ashish Huertas Tobacco dependence F17.200 ; Porphyria cutanea tarda E80.1 ; Peripheral arterial disease I73.9 ; BPH (benign prostatic hyperplasia) N40.0 ; Hypertension I10 ; Lumbar radiculopathy, right M54.16 and Acute diffuse otitis externa of both ears H60.313 Ashish Huertas III, MD [address] [place] [address] [place] [address] 10/21/2023 Ashish Huertas III, MD [address] [place] [address] [place] [address] 10/26/2023 Ashish Huertas Tobacco dependence F17.200 ; COPD (chronic obstructive pulmonary disease) J44.9 ; Hypertension I10 ; BPH (benign prostatic hyperplasia) N40.0 ; Peripheral arterial disease I73.9 ; Porphyria cutanea tarda E80.1 ; Lumbar radiculopathy, right M54.16 and Acute diffuse otitis externa of both ears H60.313 ASSESSMENTS Encounter Date Diagnosis Assessment Notes Treatment [...] diagnosis of porphyria was made by a machine tech at . He affirms that if he goes into [...] diagnosis of porphyria was made by a machine tech at . He affirms that if he goes into direct sunlight. He will experience blisters and skin lesions. He is well versed in how to prevent this and has medications for his skin. 07/16/2023 Tobacco dependence (ICD-10 - F17.200) He has smoked a package of cigarettes per day for 40 years. He has known COPD. We discussed smoking cessation strategies. This current regimen was continued. 10/26/2023 Tobacco dependence (ICD-10 - F17.200) He has smoked a package of cigarettes per day for 40 years. He has known COPD. We discussed smoking cessation strategies. This current regimen was continued. 10/26/2023 COPD (chronic obstructive pulmonary disease) (ICD-10 - [...] include lung cancer, COPD, oxygen dependence, etc. 09/23/2023 Leg numbness (ICD-10 - R20.0) The [...] diagnosis of porphyria was made by a machine tech at . He affirms that if he goes into [...] The left leg was pink and warm. 10/26/2023 Hypertension (ICD-10 - I10) His blood pressure is currently stable at 132/80. No change in his regimen was made. I encouraged hiim to puursue aggressive sodium restriction. 09/23/2023 Hypertension (ICD-10 - I10) His blood [...] awake to reduce nocturnal awakening to urinate. 10/26/2023 BPH (benign prostatic hyperplasia) (ICD-10 - N40.0) He rises from sleep once or twice a night to urinate. We have discussed lifestyle modification as a way to relieve nocturnal urinating. 09/23/2023 BPH (benign prostatic hyperplasia) (ICD-10 - [...] diagnosis of porphyria was made by a machine tech at . He affirms that if he goes into [...] or lumbar strain and aggressive sodium restriction. 10/26/2023 Peripheral arterial disease (ICD-10 - I73.9) He saw the vascular surgeon recently. His claudication has become worse lately in the left leg. A CT scan and an arteriogram have been done. Noninvasive procedure is planned. Whether this is surgery or angioplasty is unclear at the moment. 12/23/2022 Porphyria cutanea tarda (ICD-10 - E80.1) The diagnosis of porphyria was made by a machine tech at . He affirms that if he goes into direct sunlight. He will experience blisters and skin lesions. He is well versed in how to prevent this and has medications for his skin. 02/20/2023 Porphyria cutanea tarda (ICD-10 - E80.1) The diagnosis of porphyria was made by a machine tech at . He affirms that if he goes into [...] diagnosis of porphyria was made by a machine tech at . He affirms that if he goes into direct sunlight. He will experience blisters and skin lesions. He is well versed in how to prevent this and has medications for his skin. 07/16/2023 Lumbar radiculopathy, right (ICD-10 - M54.16) This pain has now resolved. 10/26/2023 Porphyria cutanea tarda (ICD-10 - E80.1) The diagnosis of porphyria was made by a machine tech at . He affirms that if he goes into direct sunlight. He will experience blisters and skin lesions. He is well versed in how to prevent this and has medications for his skin. 12/23/2022 Tobacco dependence (ICD-10 - F17.200) He [...] then resume normal activities. Infection is resolving. 10/26/2023 Lumbar radiculopathy, right (ICD-10 - M54.16) This pain has now resolved. 10/26/2023 Acute diffuse otitis externa of both ears [...] 09/23/2023 Next Appt Details Provider Name:Ashish Huertas, 01/20/2024 10:15:00 AM, [address] [place] [address] [address], [place], [address], Provider Name:Ashish Huertas, 09/26/2024 09:30:00 AM, [address] [place] [address] [address], [place], [address], Insurance Providers Payer Name Payer Address Payer Phone Subscriber Number Group Number Insured Name Patient Relationship to Insured Coverage Start Date Coverage End Date [facility] [address] [place], [place] [id number] Sid Landeros Self - patient is the insured [address] [place] [address] [phone] [id number] Sid Landeros Self - patient is the insured MEDICAL (GENERAL) HISTORY Medical History History ICD Code COPD (chronic obstructive pulmonary dise ase) J44.9 Hypertension I10 Erectile dysfunction Peripheral vascular disease Environmental allergies History of repaired pilonidal cyst Excised lipoma, left triceps, age 8 Porphyria cutanea tarda, Dr. Brady, [facility] Tobacco dependence Covid19 infection 2021 COPD Surgical History Surgery Date(Month/Year) Arterial Bipass 05/2022 Colonoscopy, [facility], Dr. Ramos Fracture of 2 fingers Repair of pilonidal cyst Excision of lipoma, left triceps, age 8 Esophagogastricduodoscopy [place]oral [place]opl[place] [place]
[2023-11-02 09:58] LABS: COVID-19 Test Negative (Negative); IDNOW Serial# 152EDE1D
[2023-11-02 09:58] LABS: Hemoglobin 13.4 g/dl (14.0-18.0); Mean Corpuscular HGB Conc 35.3 g/dl (31.0-36.0); Mean Corpuscular Hemoglobin 30.5 pg (27.0-33.0); Mean Corpuscular Volume 86.4 fL (80.0-98.0); Mean Platelet Volume 8.7 fL (9.4-12.4); Platelet Count 201 X10*3/uL (160-400); Red Cell Distribution Width 12.7 % (11.0-16.0); White Blood Count 3.8 X10*3/uL (4.8-10.8)
[2023-11-02 10:06] LABS: Partial Thromboplastin Time 29.8 SEC (26.0-36.8)
[2023-11-02 10:09] LABS: Anion Gap 15 (12-20); Blood Urea Nitrogen 6 mg/dL (9-16); Calcium 9.9 mg/dL (8.4-10.2); Carbon Dioxide 23 mmol/L (22-29); Chloride 102 mmol/L (96-108); Creatinine Clr Calc Pharmacy 106.7; Estimated Glomerular Filt Rate > 60; Glucose Random 104 mg/dL (60-115); Potassium 4.3 mmol/L (3.3-5.1); Sodium 136 mmol/L (135-145)
[2023-11-02] MEDS: Albuterol Sulfate (0.083%) 2.5 MG/3 ML VIAL.NEB INHALE (10:29)
[2023-11-02] MEDS: Lactated Ringers 1,000 ML 100 ML IVCONT (10:38)
--- NOTE | 2023-11-02 11:00 | PC.NURSE ---
Dr. Orr aware patient stopped his plavix on 10/30. Okay to proceed with surgery.
--- NOTE | 2023-11-02 13:19 | W.PM.OPN ---
Operative Note Operative Note Date of Service: 11/02/23 Narrative: [facility] Preoperative diagnosis: Atherosclerosis of left lower extremity with activity limiting claudication 2. Occluded fem-pop bypass Postoperative diagnosis: Same Procedure: 1. Left common femoral artery cutdown 2. Thrombectomy of fem-pop bypass graft 3. Aortogram with left lower extremity runoff 4. Left distal graft popliteal plasty Surgeon:Jhony Orr M.D., FACS, RPVI [place] Worker:None Anesthesia: General Specimens:none Drains:none Estimated blood loss: Less than 10 ml Implant: Medtronic Impact DCB 5 x 80 Indications: Very pleasant 62-year-old gentleman presents for left fem-pop bypass. He had outpatient angiogram which demonstrated inflow stenosis which was plasty. And an occluded bypass graft. Now presents for operative intervention. The patient has signed the informed consent after reviewing risks, complications, benefits, and alternatives previously discussed with the patient. The patient was given the opportunity to ask any additional questions or voice any concerns. All questions were answered to the patient's satisfaction. Procedure in detail: Patient was brought to the operating room prior to which a time-out was called for patient identification and site verification. Left leg was prepped and draped in standard surgical fashion. Through the prior incision in the left groin in the distal aspect we carried out the incision through the skin subcu and fat. We were able to identify the common femoral artery. Off this we isolated out the graft. The graft was isolated with silastic loops. This was done proximally and distally. We then administered 5000 units of systemic heparin. After 5 minutes of circulation time graftotomy was created in a transverse manner. We 1st used a 3 Latrice balloon and passed this distally. We were able to pass at approximately 35 cm down. We evacuated thrombus and chronic clot. In a similar fashion we passed a 4. Latrice down distally. We were able to easily clear additional clot. The distal anastomosis was difficult to traverse. At this point we then used a 4. Latrice and cleared proximally and we immediately established a good gush of blood. Inflow seemed to be well established. We then clamped off both ends and through the distal part which was isolated with silastic loops we placed a 6 Tunisian sheath. Through this 6 Tunisian sheath we then plasty a Glidewire. We were able to easily traverse the distal anastomosis. We exchanged out with a Navicross catheter. In 035 glidewire advantage was then advanced past this. We did confirmed true lumen at by instilling the catheter with contrast. Once this was accomplished we then plasty this distal anastomosis into the popliteal artery with a 4 x 40 balloon. Subsequent to this we plasty this with a 5 x 40 balloon. Finally we used a drug coated balloon. This was brought into position in under 3 minutes and insufflated for a total of 3 minutes in duration. Once this was accomplished completion angiogram demonstrated good result with good flow through this area. Runoff study demonstrated good flow down the anterior tibial. At this point we then removed the sheath. We flushed both ends of the graft out. We closed off the graftotomy with a CV 6 suture prior to closure both ends were flushed again and we instilled this with hep saline. Once this was accomplished adequate hemostasis was achieved we used Tisseel sealant to close the area off. Deep layer was reapproximated using 2 0 Polysorb superficial layer with 3-0 poly Sorb and finally skin with skin clips. Sterile dressing was applied. At the end the case sponge instrument counts were correct. Patient tolerated the procedure well. Returned to recovery with stable vitals. Interpretation of films: Left Leg Common femoral artery: No significant disease Profundus Femoris: No significant disease Superficial femoral artery: Occluded bypass graft demonstrated high-grade stenosis at the distal anastomosis. Post plasty demonstrated excellent result. Popliteal artery (p1,p2,p3): Good flow through the popliteal Anterior tibial artery: Dominant runoff Peroneal artery: Diminutive Posterior tibial artery: Occluded Dorsalis pedis/plantar arch: Incomplete Conclusion: 1. Successful thrombectomy of left fem-pop bypass graft with plasty of distal anastomosis and popliteal artery. 2. Anticoagulation status: 6 months of aspirin and Plavix This note is constructed using voice recognition software. While every effort has been made to ensure accuracy, medical transcription editor errors may have been included. Thank you for allowing me to participate in the care of your patient. Yours sincerely, Jhony Orr MD, FACS, R.P.V.I.
--- NOTE | 2023-11-02 14:24 | P.HPCC_ITS ---
History of Present Illness Date of Service: 11/02/23 Chief Complaint: Status post elective left fem-pop bypass graft thrombectomy 62-year-old gentleman with underlying history of peripheral vascular disease status post left fem-pop bypass graft, hypertension, COPD now postoperative day 0 post elective left fem-pop bypass graft thrombectomy being monitored in the intensive care unit. Review of Systems 2 Constitutional: Constitutional: Denies daytime sleepiness, Denies excessive sweating, Denies fatigue, Denies fever(s), Denies lethargy, Denies malaise, Denies night sweats, Denies snoring and Denies weight loss Eyes: Eyes: Denies blurry vision and Denies itchy eyes ENT: Denies nasal congestion, Denies post nasal drip, Denies sinus pain, Denies sinus pressure and Denies other ( Thrush) Cardiovascular: Cardiovascular: Denies chest pain, Denies pedal edema, Denies dyspnea, Denies orthopnea and Denies paroxysmal nocturnal dyspnea Respiratory: Respiratory: Denies cough, Denies hemoptysis, Denies excessive phlegm production, Denies dyspnea, Denies snoring and Denies wheezing Gastrointestinal: Gastrointestinal: Denies abdominal pain and Denies heartburn Musculoskeletal: Musculoskeletal: Denies myalgias, Denies arthralgias and Denies joint swelling Integumentary/Breasts: Skin/Breast: Denies rash Neurologic: Denies memory loss and Denies seizure-like activity Psychiatric: Psychiatric: Denies abnormal sleep pattern, Denies anxiety and Denies memory loss Endocrine: Endocrine: Denies excessive sweating, Denies fatigue and Denies heat intolerance Hematologic/Lymphatic: Hematologic/Lymphatic: Denies easy bruising Allergic/Immunologic: Allergic/Immunologic: Denies itchy eyes, Denies seasonal rhinorrhea and Denies wheezing PMFSH Past Medical History Medical History (Updated 11/02/23 @ 15:16 by Luís Song MD) Porphyria cutanea tarda Hereditary hemochromatosis Nicotine dependence, cigarettes, uncomplicated Murmur SOB (shortness of breath) ETOH abuse Arthritis GERD (gastroesophageal reflux disease) HTN (hypertension) COPD (chronic obstructive pulmonary disease) Tubular adenoma of colon Family History Family History Father Diabetes Stroke Hypertension Mother Chronic mental illness Family/Other FH: mental illness Surgical History Surgical History History of femoropopliteal bypass History of colonoscopy S/P angiogram of extremity History of esophagogastroduodenoscopy History of lipoma History of skin graft History of removal of cyst History of foot surgery Social History Social History (Updated 10/28/23 @ 13:48 by Lily Membreno RN) Household Members: Spouse Housing: House Are you a primary family day carer to a significant other at home: No Do you presently have visiting nurse or other home services: No Alcohol intake: current Alcohol intake frequency: a few times a month Alcohol type: beer Patient Tobacco Use Status: Current everyday Tobacco user Tobacco use type: Cigarette Cigarette Packs Per Day: 1 Cigarettes Per Day: 20 Years Smoked: 35 Smoked in Last 30 Days: Yes e-Cigarette/Vaping Use: Never Used Patient Interested in Nicotine Replacement: Yes Patient Given Instructions on How to Stop Smoking: Yes Date Education Initiated: 10/28/23 Second Hand Smoke Exposure: Yes Use of substances other than those prescribed or required for medical reasons: No Have you been hit, kicked, punched, or otherwise hurt by someone within the past year? 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 occupational exposures/hazards: No Cognitive needs: No Hearing needs: No Vision needs: Yes Meds Allergies Allergy/AdvReac Type Severity Reaction Status Date / Time nabumetone AdvReac Unknown green Verified 11/02/23 09:18 stools Active Medications: Current Medications Acetaminophen (Acetaminophen 325 Mg Tablet) 650 mg PO Q6H PRN PRN Reason: Pain, Mild (Pain Scale 1-3) Albuterol Sulfate (Albuterol Sulfate (0.083%) 2.5 Mg/3 Ml Vial.Neb) 2.5 mg INHALE ONCE PRN PRN Reason: Shortness of Breath/Wheezing Last Admin: 11/02/23 10:29 Dose: 2.5 mg Amlodipine Besylate (Amlodipine Besylate 10 Mg Tablet) 10 mg PO DAILY ANTHONY; Protocol Aspirin (Aspirin Enteric Coated 81 Mg Tablet.Dr) 81 mg PO DAILY ANTHONY Clopidogrel Bisulfate (Clopidogrel Bisulfate 75 Mg Tablet) 75 mg PO DAILY [facility] Fluticasone/Vilanterol (Fluticasone/Vilanterol 200/25 Blst.W.Dev) 1 puff INHALE RDAILY [facility] Heparin Sodium (Porcine) (Heparin Sodium,Porcine 5,000 Unit/Ml Vial) 5,000 unit SUBCUT Q8H [facility] Sodium Chloride (Ns) 1,000 mls @ 80 mls/hr IVCONT .[id number] [facility] Cefazolin Sodium/Dextrose (Ancef) 2 gm in 50 mls @ 100 mls/hr IV POSTOP ONE Stop: 11/02/23 17:49 Morphine Sulfate (Morphine Sulfate 2 Mg/Ml Cartridge) 2 mg IVPUSH Q4H PRN; Protocol PRN Reason: Pain, Severe (Pain Scale 7-10) Non-Formulary Medication (Rosuvastatin [Crestor]) 20 mg PO DAILY [facility] Oxycodone HCl (Oxycodone Hcl Immed Release 5 Mg Tablet) 5 mg PO Q4H PRN PRN Reason: Pain, Moderate(Pain Scale 4-6) Sodium Chloride (0.9 % Sodium Chloride Flush 3 Ml Syringe) 3 ml IVFLUSH QSHIFT [facility] Home Medications Medication Instructions Recorded Confirmed Last Taken Type methylcellulose (laxative) 500 mg 500 mg PO DAILY 12/30/22 11/02/23 Unknown History tablet (Citrucel) ipratropium 20 mcg-albuterol 100 1 puff inhalation Q6H PRN COPD 10/28/23 11/02/23 Unknown History mcg/actuation mist for inhalation (Combivent Respimat) Physical Exam 2 Vital Signs: Vital Signs: Last Vital Signs Temp 98.2 F 11/02/23 14:10 Pulse 81 11/02/23 14:10 Resp 16 11/02/23 14:10 BP 110/67 11/02/23 14:10 Pulse Ox 95 11/02/23 14:10 O2 Del Method Nasal Cannula wit h Capnography 11/02/23 14:10 O2 Flow Rate 2 11/02/23 14:10 BMI result Body Mass Index 24.7 Const: General: no acute distress, alert and awake Eyes: Sclerae: sclerae normal EOM: EOMs intact bilaterally Neck: Neck: Yes no lymphadenopathy, Yes trachea midline and Yes supple Resp: Effort & Inspection: normal respiratory effort and no respiratory distress Auscultation: clear to auscultation bilaterally Cardio: Rate: regular rate Rhythm: regular rhythm Heart sounds: no gallops, no murmurs and no rubs GI: Palpation (GI): Soft to palpation and Other GI palpation findings present ( Nontender) Auscultation: normal bowel sounds Extrem: General: Yes no pedal edema, No clubbing and No cyanosis Results Labs 11/02/23 09:48 11/02/23 09:48 Labs: Laboratory Results - last 24 hr 11/02/23 11/02/23 09:39 09:48 MCV 86.4 MCH 30.5 MCHC 35.3 RDW 12.7 Plt Count 201 MPV 8.7 L Absolute Nucleated RBC 0.000 Nucleated RBC % (auto) 0.0 PT 12.0 INR 1.0 APTT 29.8 Anion Gap 15 Estim Creat Clear Calc 106.7 Estimated GFR > 60 Random Glucose 104 Calcium 9.9 COVID-19 (EMILE) Negative COVID-19 Clin Com See Note Assessment and Plan (1) PVD (peripheral vascular disease): Status: Acute (2) COPD (chronic obstructive pulmonary disease): Qualifiers: COPD type: chronic bronchitis Chronic bronchitis type: simple Qualified Code(s): J41.0 - Simple chronic bronchitis Status: Acute (3) HTN (hypertension): Qualifiers: Hypertension type: primary hypertension Qualified Code(s): I10 - Essential (primary) hypertension Status: Acute (4) Hereditary hemochromatosis: Status: Acute Plan Assessment: 62-year-old gentleman status post elective left fem-pop bypass graft thrombectomy being monitored in the intensive care unit Plan: Neuro: No acute issues. Cardiac: Status post elective left fem-pop graft thrombectomy. Vascular surgery service care appreciated. Pulmonary: No acute issues. Underlying COPD. Renal: No acute issues. Endo: No acute issues. GI: No acute issues. ID: No acute issues Heme/Onc: No acute issues. Psych: No acute issues. Miscellaneous: No acute issues. Prophylaxis: Per vascular surgery Diet: Regular
[2023-11-02] MEDS: 0.9 % Sodium Chloride 1,000 ML 80 ML IVCONT (15:11)
[2023-11-02] MEDS: Clopidogrel Bisulfate 75 MG TABLET PO (15:28)
[2023-11-02] MEDS: 0.9 % Sodium Chloride Flush 3 ML SYRINGE IVFLUSH (15:29)
[2023-11-02] MEDS: Aspirin Enteric Coated 81 MG TABLET.DR PO (15:29)
[2023-11-02] MEDS: Heparin Sodium,Porcine 5,000 UNIT/ML VIAL 5000 UNIT SUBCUT ×2 (15:29→21:46)
--- NOTE | 2023-11-02 15:45 | PHA.MEDREC ---
Pharmacy Consult ? Medication Reconciliation Pharmacy has reviewed the medication reconciliation completed by nursing. Sapphire Marsh, QuangD
[2023-11-02] MEDS: Nicotine 21 MG PATCH.TD24 TRANSDERMA (17:27)
[2023-11-02] MEDS: ceFAZolin Sodium/Dextrose,Iso 2 GM/50 ML PIGGYBACK IV (17:28)
[2023-11-02] MEDS: Acetaminophen 325 MG TABLET 650 MG PO (17:32)
[2023-11-02] MEDS: oxyCODONE HCl Immed Release 5 MG TABLET PO ×2 (18:20→22:53)
[2023-11-03] VITALS (14 sets, daily range): BP systolic 101–133; BP diastolic 60–79; PULSE 65–103; RESP 10–20; TEMP 36.4–36.5; O2SAT 93–96; BMI 26.1
[2023-11-03] MEDS: 0.9 % Sodium Chloride 1,000 ML 80 ML IVCONT (03:16)
[2023-11-03] MEDS: oxyCODONE HCl Immed Release 5 MG TABLET PO (03:20)
[2023-11-03] MEDS: Heparin Sodium,Porcine 5,000 UNIT/ML VIAL 5000 UNIT SUBCUT (05:10)
[2023-11-03 05:33] LABS: MANUAL DIFF FLAG NO
[2023-11-03 05:36] LABS: Basophils Percent Auto 0.1 % (0-2); Eosinophils Percent Auto 0.1 % (0-4); Hematocrit 36.4 % (42.0-52.0); Hemoglobin 12.4 g/dl (14.0-18.0); Imm Gran Abs Auto 0.03 X10*3/uL (0.00-0.03); Imm Gran Pct Auto 0.4 % (0.0-0.4); Lymphocytes Absolute Auto 0.6 X10*3/uL (1.2-4.9); Lymphocytes Percent Auto 8.5 % (20-40); Mean Corpuscular HGB Conc 34.1 g/dl (31.0-36.0); Mean Corpuscular Hemoglobin 30.5 pg (27.0-33.0); Mean Corpuscular Volume 89.4 fL (80.0-98.0); Mean Platelet Volume 9.4 fL (9.4-12.4); Monocytes Absolute Auto 0.5 X10*3/uL (0.1-1.2); Neutrophils Absolute Auto 5.6 x10*3/uL (2.0-8.3); Neutrophils Percent Auto 83.9 % (45-73); Platelet Count 186 X10*3/uL (160-400); Red Blood Count 4.07 X10*6/uL (4.60-5.80); Red Cell Distribution Width 12.8 % (11.0-16.0); White Blood Count 6.7 X10*3/uL (4.8-10.8)
[2023-11-03 05:51] LABS: Anion Gap 13 (12-20); Blood Urea Nitrogen 7 mg/dL (9-16); Calcium 9.1 mg/dL (8.4-10.2); Carbon Dioxide 25 mmol/L (22-29); Chloride 100 mmol/L (96-108); Creatinine Clr Calc Pharmacy 111.2; Estimated Glomerular Filt Rate > 60; Glucose Random 123 mg/dL (60-115); Potassium 3.6 mmol/L (3.3-5.1); Sodium 134 mmol/L (135-145)
[2023-11-03 05:53] LABS: Magnesium 1.8 mg/dL (1.6-2.6); Phosphorus 3.4 mg/dL (2.7-4.5)
[2023-11-03] MEDS: Fluticasone/Vilanterol 200/25 BLST.W.DEV 1 PUFF INHALE (07:59)
[2023-11-03] MEDS: amLODIPine Besylate 10 MG TABLET PO (08:44)
[2023-11-03] MEDS: Aspirin Enteric Coated 81 MG TABLET.DR PO (08:44)
[2023-11-03] MEDS: Clopidogrel Bisulfate 75 MG TABLET PO (08:44)
[2023-11-03] MEDS: Atorvastatin Calcium 40 MG TABLET PO (08:44)
[2023-11-03] MEDS: Nicotine 21 MG PATCH.TD24 TRANSDERMA (08:45)
--- NOTE | 2023-11-03 09:59 | MHC.CM.PN ---
Met w/pt to discuss d/c planning needs: pt resides w/spouse, states he is independent w/ADL's and has no services. He has a walker at home but no other DME. Pt feels he will be able to manage at home w/out VNA noting his has medical training and is helpful. HCP at home: copy requested. Pt's sister will transport pt to home later today.
--- NOTE | 2023-11-03 13:00 | P.DS_ITS ---
DS: Providers Provider Date of Service: 11/03/23 Date of admission: 11/02/23 09:12 Primary care physician: Ashish Huertas MD DS: Diagnosis Discharge Diagnosis (1) PVD (peripheral vascular disease): Status: Acute (2) COPD (chronic obstructive pulmonary disease): Status: Acute (3) HTN (hypertension): Status: Acute (4) Hereditary hemochromatosis: Status: Acute DS: Summary Hospital Course Hospital Course: Patient underwent left lower extremity fem-pop revision. This required a femoral cutdown along with thrombectomy and endovascular plasty the distal anastomosis. This was done with a drug coated balloon. Did well postprocedure. Pain was well controlled. He was tolerating regular diet. It was able to ambulate with no significant difficulty. Stable for discharge. We did have an extensive discussion about smoking cessation. Time spent discussing smoking cessation with patient: more than 10 minutes Time Attestation Discharge coordination time: Greater than 30 minutes Quality: Safe Use of Opioids Does Pt have an Active Cancer Diagnosis on the Problem List?: No Quality: Stroke Does the patient have a stroke diagnosis?: No Physical Exam Vital Signs: Vital Signs: Last Vital Signs Temp 97.6 F 11/03/23 08:00 Pulse 82 11/03/23 11:00 Resp 14 11/03/23 11:00 BP 124/73 11/03/23 11:00 Pulse Ox 95 11/03/23 11:00 O2 Del Method Room Air 11/03/23 11:00 O2 Flow Rate 2 11/02/23 14:40 BMI result Body Mass Index 26.1 Const: General: cooperative, healthy appearing and no acute distress Orientation/consciousness: oriented to person, oriented to place and oriented to time HEENT: Head: Yes normal to inspection Neck: Carotids: no bruits Chest: Chest palpation & inspection: normal inspection of the chest Resp: Effort & Inspection: normal respiratory effort and able to speak in complete sentences Auscultation: clear to auscultation bilaterally Cardio: Rate: regular rate Heart sounds: S1 normal heart sound present and S2 normal heart sound present GI: Inspection: Yes normal to inspection Skin: Other: Left groin incision well healed General skin exam: no rashes or lesions noted Wounds: no wounds Neuro: General: oriented to person, oriented to place, oriented to time and CN's II-XI intact bilaterally Extrem: General: Yes normal to inspection, Yes full ROM and Yes no clubbing, cyanosis or edema Psych: Appearance: grossly normal and well kempt Speech and movement: Normal speech and movement present Affect: normal affect DS: Data Data Completed and Pending Completed studies during hospitalization [Text1]: Procedures Bypass Left Femoral Artery to Popliteal Artery with Synthetic Substitute, Open Approach (06/16/22) Extirpation of Matter from Left External Iliac Artery, Open Approach (06/16/22) Pending studies at discharge: Pending at discharge 11/02/23 12:44 Surgical [PTH] Routine Labs on day of discharge: Laboratory Results - last 24 hr 11/03/23 05:14 WBC 6.7 RBC 4.07 L Hgb 12.4 L Hct 36.4 L MCV 89.4 MCH 30.5 MCHC 34.1 RDW 12.8 Plt Count 186 MPV 9.4 Immature Gran % (Auto) 0.4 Neut % (Auto) 83.9 H Lymph % (Auto) 8.5 L [place] % (Auto) 7.0 Eos % (Auto) 0.1 Baso % (Auto) 0.1 Lymph # (Auto) 0.6 L [place] # (Auto) 0.5 Eos # (Auto) 0.0 Baso # (Auto) 0.0 Abs Immat Gran (auto) 0.03 Absolute Neuts (auto) 5.6 Absolute Nucleated RBC 0.000 Nucleated RBC % (auto) 0.0 Sodium 134 L Potassium 3.6 Chloride 100 Carbon Dioxide 25 Anion Gap 13 BUN 7 L Creatinine 0.72 Estim Creat Clear Calc 111.2 Estimated GFR > 60 Random Glucose 123 H Calcium 9.1 D Phosphorus 3.4 Magnesium 1.8 Albumin 4.0 Discharge Plan Discharge Anticipated Discharge Date/Time: 11/03/23 12:57 Patient Disposition: Home, Self-Care Discharge Diagnosis: Status post revision of fem-pop bypass Referrals: Ashish Huertas MD [Primary Care Provider] - 1 Week Discharge Medications: New oxycodone-acetaminophen [Endocet] 5-325 mg tablet 1 tab PO Q8H PRN (Reason: pain) Qty: 14 0RF Rx Instructions: Partial Fill upon patient request. Continued amlodipine 10 mg tablet 10 mg PO DAILY 90 Days Qty: 90 1RF pantoprazole 40 mg tablet,delayed release (DR/EC) 40 mg PO DAILY Qty: 90 3RF budesonide-formoterol [Symbicort] 160-4.5 mcg/actuation HFA aerosol inhaler 2 puff inhalation BID 90 Days Qty: 30.6 5RF fluticasone furoate-vilanterol [Breo Ellipta] 200-25 mcg/dose blister with device 1 inh inhalation DAILY 90 Days Qty: 60 3RF clopidogrel [Plavix] 75 mg tablet 75 mg PO DAILY Qty: 90 1RF Combivent Respimat 20-100 mcg/actuation mist 1 puff inhalation Q6H PRN (Reason: COPD) aspirin [Adult Aspirin Regimen] 81 mg tablet,delayed release (DR/EC) 81 mg PO DAILY Qty: 90 0RF sildenafil 100 mg tablet 100 mg PO DAILY PRN (Reason: sexual activity) Qty: 5 1RF ibuprofen 800 mg tablet 800 mg PO Q8H PRN (Reason: pain) 90 Days Qty: 270 0RF Citrucel 500 mg tablet 500 mg PO DAILY rosuvastatin [Crestor] 20 mg tablet 20 mg PO DAILY Qty: 90 3RF Discharge Orders: Discharge Order (Routine); Ordered 11/03/23 Ordered By: Jhony Orr Diet: Advance to usual diet Activity on Discharge: As tolerated Stand Alone Forms: Patient Portal Discharge page Care Plan Goals: Ambulate better Health Concerns: Peripheral vascular disease Plan of Treatment: Surveillance follow-up of left leg bypass Assessment: Status post left fem-pop revision
--- NOTE | 2023-11-03 13:10 | PC.NURSE ---
Shift eval 7a to present time: Patient status post elective left fem-pop bypass graft thrombectomy 11/02 Patient alert and oriented - reports left leg pain improved since surgery. L leg CMS WNL - pulses obtained via Doppler. Left groin dressing small stain. Under dressing, small amt blood, sutures intact, wound edges well approximated. No increase in staining to dressing since 8:20. Vitals stable on room air. Dr Orr plan for discharge - order to ambulate. Patient ambulated x2 - 50ft without issue. Patient eating & drinking without issue.
--- NOTE | 2023-11-03 14:29 | HO.POSTANES ---
Post Anesthesia Evaluation Post Anesthesia Evaluation Date of Service: 11/03/23 Vital Signs: Vital Signs Temp Pulse Resp BP Pulse Ox O2 Del Method 11/03/23 13:00 93 18 101/60 95 Room Air 11/03/23 12:00 86 16 111/63 95 Room Air 11/03/23 11:00 82 14 124/73 95 Room Air 11/03/23 10:00 78 15 113/72 95 Room Air 11/03/23 09:00 77 15 131/74 95 Room Air 11/03/23 08:03 72 18 11/03/23 08:00 97.6 F 103 H 20 133/73 95 Room Air 11/03/23 07:00 66 10 L 132/69 93 Room Air 11/03/23 05:03 97.7 F 68 12 128/73 93 Room Air 11/03/23 04:00 66 11 L 121/79 95 Room Air 11/03/23 03:00 65 11 L 131/67 95 Room Air Anesthesia: General Mental Status: Awake Pain Control: Satisfactory Nausea/Vomiting: None Hydration: Adequate Anesthesia-Related Issues: No Anes. Related Issues
== END 2023-11-03 15:18 | disposition home or self-care (01) | DRG 181 ==
LOC: HO.SSSA 13:35 → HO.ICU 13:44
PROVIDERS: Anesthesiology; Internal Medicine Pulmonary Disease; Admitting Provider Surgery Vascular Surgery; PCP Internal Medicine Medical Oncology; Visit Provider Surgery Vascular Surgery
PROC: 047N3Z1 Dilation of Left Popliteal Artery using Drug-Coated Balloon, Percutaneous Approach (ICD-10-PCS; principal; 2023-11-02 10:40)
DX: T82.392A Other mechanical complication of femoral arterial graft (bypass), initial encounter (principal); I70.221 Atherosclerosis of native arteries of extremities with rest pain, right leg; I10 Essential (primary) hypertension; Y71.8 Miscellaneous cardiovascular devices associated with adverse incidents, not elsewhere classified; J44.9 Chronic obstructive pulmonary disease, unspecified; E83.110 Hereditary hemochromatosis; F17.210 Nicotine dependence, cigarettes, uncomplicated; Z20.822 Contact with and (suspected) exposure to COVID-19; Z71.6 Tobacco abuse counseling; Z79.02 Long term (current) use of antithrombotics/antiplatelets; Z79.51 Long term (current) use of inhaled steroids; Z79.899 Other long term (current) drug therapy
CPT/HCPCS: 36415; 80048; 82040; 83735; 84100; 85025; 85027; 85610; 85730; 86850; 86900; 86901; 87635; 88304; 94640; A4648; A4649; C1725; C1757; C1769; C1887; C1893; J0690; J1100; J1644; J2250; J2371; J2405; J2704; J2795; J3010; Q9967

== ENCOUNTER → 2023-11-02 09:12 | Outpatient (BNV) | payer BC, OTHER, SELFPAY | PROVIDERS: Admitting Provider Surgery Vascular Surgery; PCP Internal Medicine Medical Oncology; Visit Provider Internal Medicine Pulmonary Disease | DX: I73.9 Peripheral vascular disease, unspecified (principal); J41.0 Simple chronic bronchitis; I10 Essential (primary) hypertension; E83.110 Hereditary hemochromatosis | CPT/HCPCS: 99222 ==

== ENCOUNTER 2023-11-17 11:17 | Outpatient (AMB) | payer BC, OTHER, SELFPAY ==
--- OUTSIDE RECORDS SUMMARY | 2023-11-17 11:18 | XMS_ITS | Patient Health Record ---
Author Name Unknown Organization Ashish Huertas III, MD Address [address] [place]Z [address] [place] [address] [place] [address] Care Team Providers Care Food Processing Chemist Name Role Phone Ashish Huertas Primary Care Provider ALLERGIES Allergen (clinical drug ingredient) Drug/Non Drug Allergy documented on EMR Reaction Allergy Type Onset Date Status No Known Drug Allergy Unknown Drug Allergy Active RESULTS Component Value Reference Range Notes Complete Blood Count Auto Di ff Reviewed date:07/02/2023 02:52:20 PM Interpretation: Performing Lab:[facility], [address] [place] [phone] Notes/Report: White Blood Count 3.7 4.8-10.8 X10*3/uL [...] Panel Reviewed date:07/02/2023 02:52:20 PM Interpretation: Performing Lab:[address] [address] Notes/Report: Sodium 137 135-145 mmol/L Potassium 4.8 3.3-5.1 mmol/L Chloride 103 96-108 mmol/L Carbon Dioxide 25 22-29 mmol/L Anion Gap 14 12-20 Blood Urea Nitrogen 4 9-16 mg/dL Creatinine 0.77 0.5-1.4 mg/dL Estimated Glomerular Filt Rate > 60 NOTE: For -Guamanian individuals, multiply the result by 1.210. Chronic [...] Acid Reviewed date:07/02/2023 02:52:20 PM Interpretation: Performing Lab:[address] [address] Notes/Report: Uric Acid 4.9 3.4-7.0 mg/dL Lipid Panel Reviewed date:07/02/2023 02:52:20 PM Interpretation: Performing Lab:[address] [place] [address] Notes/Report: Triglycerides 81 Desirable Triglyceride: less than [...] Antigen Reviewed date:07/02/2023 02:52:20 PM Interpretation: Performing Lab:[address] [address] Notes/Report: Prostate Specific Antigen 0.64 <0.05-4.0 ng/mL PSA methodology: Coyne Alinity i Chemiluminescent Microparticle Immunoassay (CMIA) Vitamin D 25-OH Total Reviewed date:07/02/2023 02:52:20 PM Interpretation: Performing Lab:[address] [address] Notes/Report: Vitamin D 25-OH Total 38.0 >30 [...] Culture Reviewed date:07/06/2023 05:50:09 PM Interpretation: Performing Lab:[address] [address] Notes/Report: Ear Culture Report - external Ear Culture 2+ Mixed skin wesley O:STAAUR Staphylococcus aureus Ear Culture Quant Ear Culture 2+ Clindamycin <=0.25 Erythromycin <=0.25 Levofloxacin 0.25 Oxacillin <=0.25 Penicillin-G >=0.5 Tetracycline <=1 Trimethoprim/Sulfamethox azole <=10 Gram stain Reviewed date:07/06/2023 05:50:09 PM Interpretation: Performing Lab:[facility], [address] [place] [phone] Notes/Report: Gram stain Gram stain results: Gram stain No polys Gram stain 1+ epithelial cells Gram stain 2+ Gram-positive cocci US KAI complete Reviewed date:09/24/2023 05:55:12 PM Interpretation: Performing Lab: Notes/Report: [address] [place] [address] Ultrasound Report Signed Patient: Sid Landeros MR#: [id number] : 1960 Acct:[id number] Age/Sex: 62 / M ADM Date: 09/07/23 Loc: HO.US Attending Dr: Jhony Orr MD Ordering Physician: Jhony Orr MD Date of Service: 09/07/23 Procedure(s): US KAI complete Accession Number(s): [id number] cc: Ashish Huertas MD; Jhony Orr MD [...] the prior exam. 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 There is interval occlusion of the femoropopliteal bypass graft. Reconstituted flow seen in the popliteal artery with severely dampened but patent arterial waveforms seen in the below-knee runoff vessels. AKI Reference: - >1.4 = calcified vessels - [...] in OV> 09/14/23 0935 DD/ 1530 TD/TT: Field Marketing Lead: US carotid duplex BI Reviewed date:09/24/2023 05:55:12 PM Interpretation: Performing Lab: Notes/Report: [address] [address] Ultrasound Report Signed Patient: Sid Landeros MR#: [id number] : 1960 Acct:[id number] Age/Sex: 62 / M ADM Date: 09/07/23 Loc: HO.US Attending Dr: Jhony Orr MD Ordering Physician: Carlos A Fletcher MD Date of Service: 09/07/23 Procedure(s): US carotid duplex BI Accession Number(s): [id number] cc: Ashish Huertas MD; Carlos A Fletcher [...] in OV> 09/08/23 1037 DD/ 1408 TD/TT: Field Marketing Lead: DYANA US arterial duplex LE BI Reviewed date:09/24/2023 05:55:12 PM Interpretation: Performing Lab: Notes/Report: [address] [address] Ultrasound Report Signed Patient: Sid Landeros MR#: [id number] : 1960 Acct:[id number] Age/Sex: 62 / M ADM Date: 09/07/23 Loc: HO.US Attending Dr: hJony Orr MD Ordering Physician: Jhony Orr MD Date of Service: 09/07/23 Procedure(s): US arterial duplex LE BI Accession Number(s): [id number] cc: Ashish Huertas MD; Jhony Orr MD [...] the prior exam. 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 There is interval occlusion [...] in OV> 09/14/23 0935 DD/ 1530 TD/TT: Field Marketing Lead: US abdominal aortic aneurysm Reviewed date:09/24/2023 05:55:12 PM Interpretation: Performing Lab: Notes/Report: [address] [address] Ultrasound Report Signed Patient: Sid Landeros MR#: [id number] : 1960 Acct:[id number] Age/Sex: 62 / M ADM Date: 09/07/23 Loc: HO. Attending Dr: Jhony Orr MD Ordering Physician: Jhony Orr MD Date of Service: 09/07/23 Procedure(s): US abdominal aortic aneurysm Accession Number(s): [id number] cc: Ashish Huertas MD; Jhony Orr MD [...] the prior exam. 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 There is interval occlusion [...] MD in OV> 09/14/2335 DD/ 1530 TD/TT: Field Marketing Lead: URINE DIP STICK Reviewed date:09/23/2023 09:45:16 AM [...] POC Reviewed date:10/12/2023 08:41:12 AM Interpretation: Performing Lab:[facility], [address] [place] [phone] Notes/Report: [id number] .63 >60 1131 HO.BERCHB Creatinine POC 0.6 0.5-1.4 mg/dL GFR POC > 60 Chronic Kidney Disease: Estimated GFR < 60 mL/min/1.73m2 Severe Kidney Disease: Estimated GFR < 15 mL/min/1.73m2 CT angio abd aorta runoff Reviewed date:10/07/2023 04:23:32 PM Interpretation: Performing Lab: Notes/Report: [address] [address] [address] Scan Report Signed Patient: Sid Landeros MR#: [id number] : 1960 Acct:[id number] Age/Sex: 62 / M ADM Date: 10/07/23 Loc: HO.CT Attending Dr: Jhony Orr MD Ordering Physician: Jhony Orr MD Date of Service: 10/07/23 Procedure(s): CT angio abd aorta runoff Accession Number(s): [id number] cc: Ashish Huertas MD; Jhony Orr MD [...] from the initial data set by the [facility] under concurrent physician supervision. [...] moderate celiac and SMA stenoses present. The LACNE is widely patent. RENAL ARTERIES: There are [...] distal external iliac artery with an occluded shoshone-paiute SFA and femoral-popliteal bypass graft. The popliteal is reconstituted just above the knee joint with two-vessel runoff via the anterior tibial and peroneal arteries. 4. Incidental nonvascular findings as described above including cholelithiasis, sigmoid diverticulosis and BPH. Dictated By: Hardeep Villeda MD Signed By: <Electronically signed by Hardeep Villeda MD in OV> 10/07/23 1314 DD/ 1203 TD/TT: Field Marketing Lead: DYANA Complete Blood Count Auto Di ff Reviewed date:10/25/2023 08:17:39 AM Interpretation: Performing Lab:[facility], [address] [place] [phone] Notes/Report: White Blood Count 3.4 4.8-10.8 X10*3/uL [...] Nitrogen Reviewed date:10/25/2023 08:17:39 AM Interpretation: Performing Lab:[facility], [address] [place] [phone] Notes/Report: Blood Urea Nitrogen 4 9-16 mg/dL Creatinine Reviewed date:10/25/2023 08:17:39 AM Interpretation: Performing Lab:[facility], [address] [place] [phone] Notes/Report: Creatinine 0.72 0.5-1.4 mg/dL Creatinine Clr Calc Pharmacy 111.2 eGFR (calculated from the MDRD study equation) and eCrCl (calculated from the Cockcroft-Gault equation) are based on different parameters and may not yield comparable results. If eCrCl result is absurd, please check patient's height/weight. Estimated Glomerular Filt Rate > 60 NOTE: For -Guamanian individuals, multiply the result by 1.210. Chronic Kidney Disease: Estimated GFR < 60 mL/min/1.73m2 Severe Kidney Disease: Estimated GFR < 15 mL/min/1.73m2 Complete Blood Count no Diff Reviewed date:11/01/2023 08:04:51 AM Interpretation: Performing Lab:[facility], [address] [place] [phone] Notes/Report: White Blood Count 3.6 4.8-10.8 X10*3/uL [...] INR Reviewed date:11/01/2023 08:04:51 AM Interpretation: Performing Lab:[facility], [address] [place] [phone] Notes/Report: Prothrombin Time 11.6 11.1-13.3 SEC INTERNATIONAL [...] Time Reviewed date:11/01/2023 08:04:51 AM Interpretation: Performing Lab:[facility], [address] [place] [phone] Notes/Report: Partial Thromboplastin Time 30.0 26.0-36.8 SEC For information regarding the monitoring of direct thrombin inhibitors, please refer to Pharmacy. Basic Metabolic Panel Reviewed date:11/01/2023 08:04:51 AM Interpretation: Performing Lab:[facility], [address] [place] [phone] Notes/Report: Sodium 134 135-145 mmol/L Potassium 4.1 [...] Glomerular Filt Rate > 60 NOTE: For -Guamanian individuals, multiply the result by 1.210. Chronic Kidney Disease: Estimated GFR < 60 mL/min/1.73m2 Severe Kidney Disease: Estimated GFR < 15 mL/min/1.73m2 Glucose Random 102 60-115 mg/dL Calcium 9.9 8.4-10.2 mg/dL Type and Screen Reviewed date:11/01/2023 08:04:51 AM Interpretation: Performing Lab:[facility], [address] [place] [phone] Notes/Report: witnessed by [facility] NURSING: Call Blood Bank (ext. [phone]) to band patient on admission. Type and Screen in effect until 2300 on 11-02-2023 Blood Type AP Antibody Screen NEGATIVE Complete Blood Count no Diff Reviewed date:11/02/2023 04:00:19 PM Interpretation: Performing Lab:[facility], [address] [place] [phone] Notes/Report: White Blood Count 3.8 4.8-10.8 X10*3/uL Red Blood Count 4.40 4.60-5.80 X10*6/uL Hemoglobin 13.4 14.0-18.0 g/dl Hematocrit 38.0 42.0-52.0 % Mean Corpuscular Volume 86.4 80.0-98.0 fL Mean Corpuscular Hemoglobin 30.5 27.0-33.0 pg Mean Corpuscular HGB Conc 35.3 31.0-36.0 g/dl Red Cell Distribution Width 12.7 11.0-16.0 % Platelet Count 201 160-400 X10*3/uL Mean Platelet Volume 8.7 9.4-12.4 fL NRBC Pct Auto 0.0 0.0-0.2 /100WBC NRBC Abs Auto 0.000 0.0-0.012 X10*3/uL Prothrombin Time INR Reviewed date:11/02/2023 04:00:19 PM Interpretation: Performing Lab:[address] [address] Notes/Report: Prothrombin Time 12.0 11.1-13.3 SEC INTERNATIONAL NORM RATIO 1.0 0.9-1.1 [...] 2.5 - 3.5 Partial Thromboplastin Time Reviewed date:11/02/2023 04:00:19 PM Interpretation: Performing Lab:[address] [address] Notes/Report: Partial Thromboplastin Time 29.8 26.0-36.8 SEC For information regarding the monitoring of direct thrombin inhibitors, please refer to Pharmacy. Basic Metabolic Panel Reviewed date:11/02/2023 04:00:19 PM Interpretation: Performing Lab:[address] [address] Notes/Report: Sodium 136 135-145 mmol/L Potassium 4.3 3.3-5.1 mmol/L Chloride 102 96-108 mmol/L Carbon Dioxide 23 22-29 mmol/L Anion Gap 15 12-20 Blood Urea Nitrogen 6 9-16 mg/dL Creatinine 0.75 0.5-1.4 mg/dL Creatinine Clr Calc Pharmacy 106.7 eGFR (calculated from the MDRD study equation) and eCrCl (calculated from the Cockcroft-Gault equation) are based on different parameters and may not yield comparable results. If eCrCl result is absurd, please check patient's height/weight. Estimated Glomerular Filt Rate > 60 NOTE: For -Guamanian individuals, multiply the result by 1.210. Chronic Kidney Disease: Estimated GFR < 60 mL/min/1.73m2 Severe Kidney Disease: Estimated GFR < 15 mL/min/1.73m2 Glucose Random 104 60-115 mg/dL Calcium 9.9 8.4-10.2 mg/dL Pathology Reviewed date:11/06/2023 09:57:22 AM Interpretation: Performing Lab:[facility], [address] [place] [phone] Notes/Report: COVID-19 ID NOW ([place]) Reviewed date:11/02/2023 04:00:19 PM Interpretation: Performing Lab:[facility], [address] [place] [phone] Notes/Report: IDNOW Serial# [id number] COVID-19 Test Negative Negative COVID-19 Note See Note Results are for the identification of SARS-CoV2 RNA. The SARS-CoV2 RNA is generally detectable in respiratory samples during the acute phase of infection. Positive results are indicative of the presence of SARS-CoV-2 RNA; clinical correlation with patient history and other diagnostic information is necessary to determine patient infection status. Positive results do not rule out bacterial infection or co-infection with other viruses. Testing facilities within the [facility] and its territories are required to report all positive results to the appropriate public health authorities. Negative results should be treated as presumptive and, if inconsistent with clinical signs and symptoms or necessary for patient management, should be tested with different authorized or cleared molecular tests. Negative results do not preclude SARS-CoV2 RNA infection and should not be used as the sole basis for patient management decisions. Negative results should be considered in the context of a patient's recent exposures, history and the presence of clinical signs and symptoms consistent with COVID-19. This test has been authorized by the FDA under an Emergency Use Authorization (EUA) for use by authorized laboratories. Testing performed on the [employer] ID NOW utilizing NAAT. FL guidance in OR Reviewed date:11/13/2023 08:46:13 AM Interpretation: Performing Lab: Notes/Report: [address] [address] Fluoroscopy Report Signed Patient: Sid Landeros MR#: [id number] : 1960 Acct:[id number] Age/Sex: 62 / M ADM Date: 11/02/23 Loc: .[facility] 262-[address]: Jhony Orr MD Ordering Physician: Jhony Orr MD Date of Service: 11/02/23 Procedure(s): FL guidance in OR Accession Number(s): [id number] cc: Ashish Huertas MD; Jhony Orr MD EXAMINATION: XR FLUOROSCOPY WITH IMAGES CLINICAL INFORMATION: Intraoperative fluoroscopy provided during angiography/intervention COMPARISON: None available. TECHNIQUE: Fluoroscopy Supervised By: Dr. Orr. Fluoroscopy Time: 5.0 minutes Cumulative Dose: 9.69 mGy. DAP: 2.64 Gycm2. Images: 44. FINDINGS: Please refer to procedural note for full details. FL/FL guidance in OR IMPRESSION: Intraoperative fluoroscopy during angiography/intervention. Dictated By: Michaela Kwon MD Signed By: <Electronically signed by Michaela Kwon MD in OV> 11/11/23 0740 DD/ 1310 TD/TT: Field Marketing Lead: Complete Blood Count Auto Di ff Reviewed date:11/06/2023 09:57:22 AM Interpretation: Performing Lab:[facility], [address] [place] [phone] Notes/Report: White Blood Count 6.7 4.8-10.8 X10*3/uL Red Blood Count 4.07 4.60-5.80 X10*6/uL Hemoglobin 12.4 14.0-18.0 g/dl Hematocrit 36.4 42.0-52.0 % Mean Corpuscular Volume 89.4 80.0-98.0 fL Mean Corpuscular Hemoglobin 30.5 27.0-33.0 pg Mean Corpuscular HGB Conc 34.1 31.0-36.0 g/dl Red Cell Distribution Width 12.8 11.0-16.0 % Platelet Count 186 160-400 X10*3/uL Mean Platelet Volume 9.4 9.4-12.4 fL Neutrophils Percent Auto 83.9 45-73 % Imm Gran Pct Auto 0.4 0.0-0.4 % Lymphocytes Percent Auto 8.5 20-40 % Monocytes Percent Auto 7.0 2-11 % Eosinophils Percent Auto 0.1 0-4 % Basophils Percent Auto 0.1 0-2 % NRBC Pct Auto 0.0 0.0-0.2 /100WBC Neutrophils Absolute Auto 5.6 2.0-8.3 x10*3/uL Imm Gran Abs Auto 0.03 0.00-0.03 X10*3/uL Lymphocytes Absolute Auto 0.6 1.2-4.9 X10*3/uL Monocytes Absolute Auto 0.5 0.1-1.2 X10*3/uL Eosinophils Absolute Auto 0.0 0.0-0.4 X10*3/uL Basophils Absolute Auto 0.0 0.0-0.2 X10*3/uL NRBC Abs Auto 0.000 0.0-0.012 X10*3/uL Basic Metabolic Panel Reviewed date:11/06/2023 09:57:22 AM Interpretation: Performing Lab:[facility], [address] [place] [phone] Notes/Report: Sodium 134 135-145 mmol/L Potassium 3.6 3.3-5.1 mmol/L Chloride 100 96-108 mmol/L Carbon Dioxide 25 22-29 mmol/L Anion Gap 13 12-20 Blood Urea Nitrogen 7 9-16 mg/dL Creatinine 0.72 0.5-1.4 mg/dL Creatinine Clr Calc Pharmacy 111.2 eGFR (calculated from the MDRD study equation) and eCrCl (calculated from the Cockcroft-Gault equation) are based on different parameters and may not yield comparable results. If eCrCl result is absurd, please check patient's height/weight. Estimated Glomerular Filt Rate > 60 NOTE: For -Guamanian individuals, multiply the result by 1.210. Chronic Kidney Disease: Estimated GFR < 60 mL/min/1.73m2 Severe Kidney Disease: Estimated GFR < 15 mL/min/1.73m2 Glucose Random 123 60-115 mg/dL Calcium 9.1 8.4-10.2 mg/dL Phosphorus Reviewed date:11/06/2023 09:57:22 AM Interpretation: Performing Lab:[facility], [address] [place] [phone] Notes/Report: Phosphorus 3.4 2.7-4.5 mg/dL Magnesium Reviewed date:11/06/2023 09:57:22 AM Interpretation: Performing Lab:[facility], [address] [place] [phone] Notes/Report: Magnesium 1.8 1.6-2.6 mg/dL Albumin Level Reviewed date:11/06/2023 09:57:22 AM Interpretation: Performing Lab:[facility], [address] [place] [phone] Notes/Report: Albumin Level 4.0 3.5-5.0 g/dL REASON FOR REFERRAL Reason Consult and Treat Ri ght Buttock Pain Physical Therapy Diagnosis 1 Lumbar radiculopathy , right (M54.16) Diagnosis 2 Right buttock pain ( M79.18) Referral Organization Ashish Huertas III, MD Referring Provider First Name Ashish Referring Provider Last Name Huertas Referring Provider Speciality Internal edicine Referred Provider [facility] Referred Provider Specialty Physical Med [facility] Notes Sharon Dickinson 2022 11:09:50 AM EDT > Faxed referral with progress notes. Referral Priority Routine Reason low back pain left leg numbness eval and treatment Diagnosis 1 Numbness (R20.0) Diagnosis 2 Left low back pain, unspecified chronicity, unspecified whether sciatica present (M54.50) Referral Organization Ashish Huertas III, MD Referring Provider First Name Ashish Referring Provider Last Name Huertas Referring Provider Speciality Internal edicine [facility] Med [facility] Notes Liat Pinon CMA 10/2023 03:12:36 PM EST > ref/demo/progress note faxed to [facility] asking them to call patient with appt information , Liat Pinon RETAIL MAINTENANCE TECHNICIAN 09/30/2023 11:13:22 AM EST > called [facility] they stated they do have referral but have not contacted pt as of yet, Liat Pinon RETAIL MAINTENANCE TECHNICIAN 10/05/2023 01:55:33 PM EST > I called [facility] they stated pt has appt with Dr Delgado on 10/07/2023 at 9:30am Referral Priority Routine Referral Appointment Date 10/07/2023 MEDICATIONS Medication SIG (Take, Route, Frequency, Duration) Notes Start Date End Date Status Doxycycline Hyclate 100 MG 1 tablet Oral ly Twice a day 07/03/2023 Active Rosuvastatin Calcium 20 MG 1 tablet Oral ly Once a day Active Pantoprazole Sodium 40 MG as directed Or ally Once a day Active traZODone HCl 100 MG 1 tablet at bedtime Orally Once a day 09/01/2023 Active dexAMETHasone 2 MG 1 tablet Orally ever y 12 hrs 12/22/2022 Active Cephalexin 500 MG 1 capsule Orally Fou r times a day 10/14/2023 Active Sildenafil Citrate 100 MG 1 tablet Orall y Once a day 05/15/2023 Active Ibuprofen 800 MG Oral Act henrry Symbicort 160-4.5 MCG/ACT 2 puffs Inhala tion Twice a day Active Sildenafil Citrate 100 MG Oral Active Combivent Respimat 20-100 MCG/ACT 1 puff as needed Inhalation every 6 hrs Active amLODIPine Besylate 10 MG as directed Or ally Once a day for 90 days Active Varenicline Tartrate (Starter) 0.5 MG X 11 & 1 MG X 42 as directed Orally as directed 01/30/2023 Active Azithromycin 250 MG as directed Orally 2 Tablets on the first day, one tablet the rest of the days for 5 days Active predniSONE 20 MG 1 tablet with food o r milk Orally Once a day for 10 days 11/17/2023 12/07/2023 Active traMADol HCl 50 MG 1 tablet [...] Notes Problem Hypertension (I10) Active confirmed Hypertension (45382683) His blood pressure is currently stable at 132/80. No change in his regimen was made. I encouraged hiim to puursue aggressive sodium restriction. Problem Porphyria cutanea tarda (E80.1) Active confirmed [id number] The diagnosis of porphyria was made by a educational therapy teacher at [facility]. He affirms that if he goes into direct sunlight. He will experience blisters and skin lesions. He is well versed in how to prevent this and has medications for his skin. Problem BPH (benign prostatic hyperplasia) (N40.0) Active confirmed Benign prostatic hyperplasia (746173557) He rises from sleep once or twice a night to urinate. We have discussed lifestyle modification as a way to relieve nocturnal urinating. Problem Tobacco dependence (F17.200) Active confirmed 54767853 He has smoked a package of cigarettes per day for 40 years. He has known COPD. We discussed smoking cessation strategies. This current regimen was continued. Problem COPD (chronic obstructive pulmonary disease) (J44.9) Active confirmed COPD - Chronic obstructive pulmonary disease (18843561) His breathing is currently unimpaired. He denies [...] etc. Problem Pilonidal cyst (L05.91) Active confirmed 51169181 He had an excision and repair of this cyst years ago. It is healed and no longer bothers him. Problem Peripheral arterial disease (I73.9) Active confirmed 709391426 He saw [facility] vascular surgeon recently. His claudication has become worse lately in the left leg. A CT scan and an arteriogram have been done. Noninvasive procedure is planned. Whether this is surgery or angioplasty is unclear at the moment. Problem Lumbar radiculopathy, right (M54.16) Active confirmed 894011335 This pain has now resolved. Problem Acute diffuse otitis externa of both ears (H60.313) Active confirmed 49655124 He will finish the doxycycline and then resume normal activities. Infection is resolving. VITAL SIGNS Heart Rate 90 /min 11/17/2023 Temperature 98.2 degrees Fahrenheit 11/17/2023 Blood pressure diastolic 75 mm Hg 11/17/2023 Height 70 in 11/17/2023 Blood pressure systolic 122 mm Hg 11/17/2023 Weight 169 lbs 11/17/2023 BMI 24.25 kg/m2 11/17/2023 Encounters Encounter Location Date Provider Diagnosis Ashish Huertas III, MD [address] [place] [address] [place] [address] 09/23/2023 Ashish Huertas Tobacco dependence F17.200 ; Left low back pain, unspecified chronicity, unspecified whether sciatica present M54.50 ; Leg numbness R20.0 ; Hypertension I10 and BPH (benign prostatic hyperplasia) N40.0 Ashish Huertas III, MD [address] [place] [address] [place] [phone] 12/23/2022 Ashish Huertas Lumbar radiculopathy M54.16 ; COPD (chronic obstructive pulmonary disease) J44.9 ; Hypertension I10 ; BPH (benign prostatic hyperplasia) N40.0 ; Peripheral arterial disease I73.9 ; Porphyria cutanea tarda E80.1 and Tobacco dependence F17.200 Ashish Huertas III, MD [address] [place] [address] [place] [address] 04/17/2023 Ashish Huertas III, MD [address] [place] [address] [place] [address] 02/20/2023 Ashish Huertas Lumbar radiculopathy , right M54.16 ; COPD (chronic obstructive pulmonary disease) J44.9 ; Hypertension I10 ; BPH (benign prostatic hyperplasia) N40.0 ; Peripheral arterial disease I73.9 and Porphyria cutanea tarda E80.1 Ashish Huertas III, MD [address] [place] [address] [place] [address] 05/20/2023 Ashish Huertas III, MD [address] [place] [address] [place] [address] 03/03/2023 Ashish Huertas Lumbar radiculopathy , right M54.16 and Skin tear of right forearm without complication, initial encounter S51.811A Ashish Huertas III, MD [address] [place] [address] [place] [address] 06/02/2023 Ashish Huertas III, MD [address] [place] [address] [place] [address] 07/03/2023 Ashish Huertas Lumbar radiculopathy , right M54.16 ; Ear pain, left H92.02 ; BPH (benign prostatic hyperplasia) N40.0 ; Peripheral arterial disease I73.9 ; Porphyria cutanea tarda E80.1 and Tobacco dependence F17.200 Ashish Huertas III, MD [address] [place] [address] [place] [address] 11/17/2023 Ashish Huertas Tobacco dependence F17.200 Ashish Huertas III, MD [address] [place] [address] [address] [place] [id number] 01/29/2023 Ashish Huertas Lumbar radiculopathy , right M54.16 ; Tobacco dependence F17.200 ; Porphyria cutanea tarda E80.1 ; Peripheral arterial disease I73.9 ; BPH (benign prostatic hyperplasia) N40.0 ; COPD (chronic obstructive pulmonary disease) J44.9 and Hypertension I10 Ashish Huertas III, MD [address] [place] [address] [place] [address] 11/13/2023 Ashish Huertas III, MD [address] [place] [address] [place] [address] 12/22/2022 Ashish Huertas III, MD [address] [place] [address] [place] [address] 12/22/2022 Ashish Huertas III, MD [address] [facility] [place] [address] 01/28/2023 Ashish Huertas III, MD [address] [facility] [place] [address] 01/29/2023 Ashish Huertas III, MD [address] [facility] [place] [address] 02/02/2023 Ashish Huertas III, MD [address] [facility] [place] [address] 03/10/2023 Ashish Huertas III, MD [address] [facility] [place] [address] 03/10/2023 Ashish Huertas III, MD [address] [place] [address] [place] [address] 03/17/2023 Ashish Huertas III, MD [address] [facility] [place] [address] 03/17/2023 Ashish Huertas III, MD [address] [facility] [place] [address] 05/15/2023 Ashish Huertas III, MD [address] [facility] [place] [address] 05/15/2023 Ashish Huertas III, MD [address] [place] [address] [place] [address] 07/01/2023 Ashish Huertas III, MD [address] [facility] [place] [address] 09/01/2023 Ashish Huertas III, MD [address] [facility] [place] [address] 09/01/2023 Ashish Huertas III, MD [address] [facility] [place] [address] 09/01/2023 Ashish Huertas III, MD [address] [facility] [place] [address] 09/08/2023 Ashish Huertas Tobacco dependence F17.200 Ashish Huertas III, MD [address] [facility] [place] [address] 10/14/2023 Ashish Huertas III, MD [address] [place] [address] [place] [address] 10/28/2023 Ashish Huertas III, MD [address] [place] [address] [place] [address] 12/26/2022 Ashish Huertas Tobacco dependence F17.200 ; Porphyria cutanea tarda E80.1 ; Peripheral arterial disease I73.9 ; BPH (benign prostatic hyperplasia) N40.0 and Lumbar radiculopathy, right M54.16 Ashish Huertas III, MD [address] [place] [address] [place] [address] 12/29/2022 Ashish Huertas Lumbar radiculopathy , right M54.16 ; Tobacco dependence F17.200 ; BPH (benign prostatic hyperplasia) N40.0 ; Peripheral arterial disease I73.9 and COPD (chronic obstructive pulmonary disease) J44.9 Ashish Huertas III, MD [address] [place] [address] [place] [address] 01/15/2023 Ashish Huertas COPD (chronic obstructive pulmonary disease) J44.9 ; Hypertension I10 ; BPH (benign prostatic hyperplasia) N40.0 ; Peripheral arterial disease I73.9 ; Tobacco dependence F17.200 ; Porphyria cutanea tarda E80.1 and Lumbar radiculopathy, right M54.16 Ashish Huertas III, MD [address] [place] [address] [place] [address] 07/16/2023 Ashish Huertas Tobacco dependence F17.200 ; Porphyria cutanea tarda E80.1 ; Peripheral arterial disease I73.9 ; BPH (benign prostatic hyperplasia) N40.0 ; Hypertension I10 ; Lumbar radiculopathy, right M54.16 and Acute diffuse otitis externa of both ears H60.313 Ashish Huertas III, MD [address] [place] [address] [place] [address] 10/21/2023 Ashish Huertas III, MD [address] [place] [address] [place] [address] 10/26/2023 Ashish Huertas Tobacco dependence F17.200 ; [...] - M54.16) This pain has now resolved. 11/17/2023 Tobacco dependence (ICD-10 - F17.200) 01/29/2023 Tobacco dependence (ICD-10 - F17.200) He [...] diagnosis of porphyria was made by a educational therapy teacher at [facility]. He affirms that if he [...] diagnosis of porphyria was made by a educational therapy teacher at [facility]. He affirms that if he [...] diagnosis of porphyria was made by a educational therapy teacher at [facility]. He affirms that if he [...] diagnosis of porphyria was made by a educational therapy teacher at [facility]. He affirms that if he [...] diagnosis of porphyria was made by a educational therapy teacher at [facility]. He affirms that if he goes into direct sunlight. He will experience blisters and skin lesions. He is well versed in how to prevent this and has medications for his skin. 02/20/2023 Porphyria cutanea tarda (ICD-10 - E80.1) The diagnosis of porphyria was made by a educational therapy teacher at [facility]. He affirms that if he [...] diagnosis of porphyria was made by a educational therapy teacher at [facility]. He affirms that if he goes into direct sunlight. He will experience blisters and skin lesions. He is well versed in how to prevent this and has medications for his skin. 07/16/2023 Lumbar radiculopathy, right (ICD-10 - M54.16) This pain has now resolved. 10/26/2023 Porphyria cutanea tarda (ICD-10 - E80.1) The diagnosis of porphyria was made by a educational therapy teacher at [facility]. He affirms that if he [...] 09/23/2023 Next Appt Details Provider Name:Ashish Huertas, 11/20/2023 10:45:00 AM, [address] [place] [address] [address] [place], [place], [address], Provider Name:Ashish Huertas, 01/20/2024 10:15:00 AM, [address] [place] [address] [address] [place], [place], [address], Provider Name:Ashish Huertas, 09/26/2024 09:30:00 AM, [address] [place] [address] [address] [place], [facility] [place], [address], Insurance Providers Payer Name Payer Address Payer Phone Subscriber Number Group Number Insured Name Patient Relationship to Insured Coverage Start Date Coverage End Date [facility] [address] [place], [place] [id number] [phone] [id number] Sid Landeros Self - patient is the insured [address] [place] [phone] [id number] Sid Landeros Self - patient is the insured MEDICAL (GENERAL) HISTORY Medical History History ICD Code COPD (chronic obstructive pulmonary dise ase) J44.9 Hypertension I10 Erectile dysfunction Peripheral vascular disease Environmental allergies History of repaired pilonidal cyst Excised lipoma, left triceps, age 8 Porphyria cutanea tarda, Dr. Brady, [facility] Tobacco dependence Covid19 infection 2021 COPD Surgical History Surgery Date(Month/Year) Arterial Bipass 05/2022 Colonoscopy, [facility], Dr. Ramos Fracture of 2 fingers Repair of pilonidal cyst Excision of lipoma, left triceps, age 8 Esophagogastricduodoscopy Femoral -popliteal arterial bypass [facility] 05/2022
--- NOTE | 2023-11-17 11:25 | MHC.OFFVIS ---
Intake Vital Signs 11/17/23 11:26 Height 5 ft 10 in Weight 169 lb BMI 24.2 Intake Visit Reasons: 2 week follow up left bypass revision Intake Note: 2 week follow up bypass revision of Left LE 11/02/23. Pt stated he did have some post procedural pain after shoveling a week after surgery, but is starting to feel better. Allergies nabumetone Adverse Reaction (Unknown, Verified 11/17/23 11:28) green stools HPI 2 week follow up left bypass revision HPI Details Pleasant 62-year-old gentleman presents for follow-up status post left fem-pop revision. Apparently last week during the snowstorm he was out shoveling and hurt his groin. He was concerned about the status of his bypass. Does state overall his leg does feel pretty well. He now presents for follow-up. [facility] Medical History (Updated 11/17/23 @ 12:26 by Jhony Orr MD) Porphyria cutanea tarda Hereditary hemochromatosis Nicotine dependence, cigarettes, uncomplicated Murmur SOB (shortness of breath) ETOH abuse Arthritis GERD (gastroesophageal reflux disease) HTN (hypertension) COPD (chronic obstructive pulmonary disease) Tubular adenoma of colon Surgical History (Updated 11/17/23 @ 11:31 by MONICA Hooper) History of femoropopliteal bypass (11/02/23) History of femoropopliteal bypass History of colonoscopy S/P angiogram of extremity History of esophagogastroduodenoscopy History of lipoma History of skin graft History of removal of cyst History of foot surgery Family History Father Diabetes Stroke Hypertension Mother Chronic mental illness Family/Other FH: mental illness Social History Household Members: Spouse Housing: House Are you a primary childbirth and infant care teacher to a significant other at home: No Do you presently have visiting nurse or other home services: No 75 years or older and lives alone: No Alcohol intake: current Alcohol intake frequency: a few times a month Alcohol type: beer Comment: residual pain in left foot, but much improved and tolerable per patient. 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 occupational exposures/hazards: No Cognitive needs: No Hearing needs: No Vision needs: Yes Review of Systems Const All systems reviewed & are unremarkable except as noted in HPI and below Reports no additional complaints ENT Reports Normal hearing present Card Denies chest pain, Denies chest pain at rest, Denies chest pain with activity and Denies pedal edema Resp Denies cough GI Denies abdominal pain Musc Denies abnormal gait, Denies muscle cramps and Denies radiating pain into limb Skin/Breast Denies skin ulcer and Denies wounds Neuro Reports Normal hearing present and Denies abnormal gait Psych Reports no additional complaints Physical Exam Vital Signs: BMI result Body Mass Index 24.2 Const General: cooperative, healthy appearing and comfortable Orientation/consciousness: oriented to person, oriented to place and oriented to time HEENT Head: Yes normal to inspection Neck Neck: Yes normal visual inspection Carotids: no bruits Chest Chest palpation & inspection: normal inspection of the chest Resp Effort & Inspection: normal respiratory effort and able to speak in complete sentences Auscultation: clear to auscultation bilaterally, no crackles, no rales, no rhonchi and no wheezes Cardio Other: Left side triphasic popliteal signals, signal over graft Rate: regular rate Rhythm: regular rhythm Heart sounds: S1 normal heart sound present and S2 normal heart sound present Bruits: no carotid bruits Peripheral pulses: Peripheral pulses 2+ throughout GI Inspection: Yes normal to inspection Skin Wounds: no wounds Hair: normal Neuro General: oriented to person, oriented to place and oriented to time Cranial nerves: Yes CN's II-XII intact bilaterally and Yes Normal hearing present Cognition (Neuro): normal cognition Motor exam (neuro): 5/5 motor strength present throughout Extrem Other: venous exam: No significant superficial varicosities or spider telangiectasias, minimal edema General: No clubbing, No cyanosis and No edema Psych Appearance: grossly normal Mental Status: mental status grossly normal Speech and movement: Normal speech and movement present Assessment & Plan Assessment & Plan (1) PAD (peripheral artery disease): Comment: 06/16/2022 - left femoral to popliteal bypass 10/21/2023 - Left external iliac plasty 11/02/2023 - thrombectomy of left fem-pop bypass with distal anastomosis plasty Code(s): I73.9 - Peripheral vascular disease, unspecified Plan: In short bypass appears to be stable. I did request that he take it easy with strenuous activity. In addition joyce were removed. He is scheduled for 3 month arterial surveillance follow-up with us. Thank you for allowing us to assist in his care. If there are any questions or concerns please do not hesitate to contact us. Orders: Orders US arterial duplex LE BI 3 Months I73.9 - Peripheral vascular disease, unspecified Coding Level of Care Code Est Pt Level 4 (17538) Diagnoses PAD (peripheral artery disease) I73.9
[2023-11-17 11:26] VITALS: BMI 24.2
== END 2023-11-17 11:51 | disposition home or self-care (01) ==
LOC: HO.HVS 11:17
PROVIDERS: PCP Internal Medicine Medical Oncology; Visit Provider Surgery Vascular Surgery
DX: I73.9 Peripheral vascular disease, unspecified (principal)
CPT/HCPCS: 99024

== ENCOUNTER → 2023-11-17 11:17 | Outpatient (BNVA) | payer BC, OTHER, SELFPAY | PROVIDERS: PCP Internal Medicine Medical Oncology; Visit Provider Surgery Vascular Surgery ==

== ENCOUNTER 2023-11-25 12:41 | Outpatient (AMB) | payer BC, OTHER, SELFPAY ==
--- NOTE | 2023-11-25 12:47 | MHC.OFFVIS ---
Intake Vital Signs 11/25/23 12:48 Height 5 ft 10 in Weight 176 lb 5.917 oz BMI 25.3 BP 120/78 Blood Pressure Location Lt brachial Position Sitting Pulse 83 Intake Visit Reasons: 4 mth f/up carotid Intake Note: 4 month follow-up after carotid u/s feeling good Medical Associate Required: No Allergies nabumetone Adverse Reaction (Unknown, Verified 11/17/23 11:28) green stools Medication List - Last Reconciled 11/25/23 by Carlos A Fletcher MD amlodipine 10 mg PO DAILY 90 days aspirin (Adult Aspirin Regimen) 81 mg PO DAILY clopidogrel (Plavix) 75 mg PO DAILY fluticasone furoate-vilanterol 200-25 mcg/dose (Breo Ellipta) 1 inh inhalation DAILY 90 days ibuprofen 800 mg PO Q8H PRN 90 days ipratropium-albuterol 20-100 mcg/actuation (Combivent Respimat) 1 puff inhalation Q6H PRN methylcellulose (laxative) (Citrucel) 500 mg PO DAILY oxycodone-acetaminophen 5-325 mg (Endocet) 1 tab PO TID PRN oxycodone-acetaminophen 5-325 mg (Endocet) 1 tab PO Q8H PRN pantoprazole 40 mg PO DAILY rosuvastatin (Crestor) 20 mg PO DAILY sildenafil 100 mg PO DAILY PRN Symbicort 160-4.5 mcg/actuation (budesonide-formoterol) 2 puffs inhalation BID 90 days NS HPI HPI Comments History of Present Illness Details Sid returns for follow-up. He has a history of peripheral vascular disease and has had lower extremity vascular surgeries. No clear-cut cardiac symptoms but more than likely he has coronary disease as well. Never had any acute cardiac issues in the past. Has hypertension, dyslipidemia, long-term smoking. Unfortunately still smokes but he states he is trying to cut back. [facility] Medical History (Updated 11/25/23 @ 13:03 by Carlos A Fletcher MD) Porphyria cutanea tarda Hereditary hemochromatosis Nicotine dependence, cigarettes, uncomplicated Murmur SOB (shortness of breath) ETOH abuse Arthritis GERD (gastroesophageal reflux disease) HTN (hypertension) COPD (chronic obstructive pulmonary disease) Tubular adenoma of colon Surgical History (Updated 11/17/23 @ 11:31 by MONICA Hooper) History of femoropopliteal bypass (11/02/23) History of femoropopliteal bypass History of colonoscopy S/P angiogram of extremity History of esophagogastroduodenoscopy History of lipoma History of skin graft History of removal of cyst History of foot surgery Family History Father Diabetes Stroke Hypertension Mother Chronic mental illness Family/Other FH: mental illness Social History Household Members: Spouse Housing: House Are you a primary manager wound care to a significant other at home: No Do you presently have visiting nurse or other home services: No 75 years or older and lives alone: No Alcohol intake: current Alcohol intake frequency: a few times a month Alcohol type: beer Comment: residual pain in left foot, but much improved and tolerable per patient. 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 occupational exposures/hazards: No Cognitive needs: No Hearing needs: No Vision needs: Yes Review of Systems Const Denies chills, Denies fatigue, Denies fever(s), Denies frequent falls, Denies weakness, Denies weight gain and Denies weight loss ENT Denies dizziness Card Denies chest pain, Denies leg edema, Denies lightheadedness, Denies palpitations, Denies dyspnea, Denies dyspnea on exertion, Denies orthopnea and Denies other (loss of consciousness) Resp Denies cough, Denies dyspnea and Denies dyspnea on exertion GI Denies hematochezia and Denies change in stool character Musc Denies abnormal gait, Denies muscle weakness, Denies numbness, Denies radiating pain into limb and Denies tingling Neuro Denies abnormal gait, Denies dizziness, Denies frequent falls, Denies numbness, Denies tingling and Denies weakness Endo Denies fatigue and Denies palpitations Physical Exam Vital Signs: Last Vital Signs Pulse 83 11/25/23 12:48 BP 120/78 11/25/23 12:48 BMI result Body Mass Index 25.3 Const General: comfortable and no acute distress Orientation/consciousness: patient oriented x3 HEENT Other: Unremarkable Head: Yes normal to inspection Neck Neck: Yes normal visual inspection Chest Chest palpation & inspection: normal inspection of the chest Resp Auscultation: clear to auscultation bilaterally Cardio Palpation: normal PMI Heart sounds: S1 normal heart sound present, S2 normal heart sound present, no gallops, no murmurs and no rubs GI Palpation (GI): Soft to palpation Back/Spine/Pelvis Other: unremarkable Skin General skin exam: no rashes or lesions noted Neuro General: patient oriented x3 Extrem General: Yes normal to inspection Psych Mental Status: mental status grossly normal Assessment & Plan Assessment & Plan (1) Atherosclerotic cardiovascular disease: Code(s): I25.10 - Atherosclerotic heart disease of [place] coronary artery without angina pectoris (2) PAD (peripheral artery disease): Comment: 06/16/2022 - left femoral to popliteal bypass 10/21/2023 - Left external iliac plasty 11/02/2023 - thrombectomy of left fem-pop bypass with distal anastomosis plasty Code(s): I73.9 - Peripheral vascular disease, unspecified (3) HTN (hypertension): Code(s): I10 - Essential (primary) hypertension Qualifiers: Hypertension type: primary hypertension Qualified Code(s): I10 - Essential (primary) hypertension (4) Nicotine dependence, cigarettes, uncomplicated: Comment: (current smoker, onset 17yo, 1ppd x 45yrs, 45pyh) , has cut down to 15 cigarettes a day . Advised to keep on cutting down the number of cigarettes. Code(s): F17.210 - Nicotine dependence, cigarettes, uncomplicated Plan Overall, significant peripheral vascular disease and also presumed coronary disease but no active symptoms. Last echocardiogram with LVEF of 60-65% otherwise unremarkable. Last perfusion imaging study with mild reversible distal anterior/apical defect but there was improvement with CT attenuation correction and normal contractility. Hence thought to be more from soft tissue attenuation artifact and less likely from mild ischemia. Chest CT scan however does show some coronary artery calcification. Overall, continue treatment for stable coronary disease/vascular disease and aggressive risk factor modification. He seems to be on dual antiplatelet therapy. Continue amlodipine for hypertension. Continue statins. Check lipids and LFTs and requested him to get those done. Strongly advised smoking cessation he states he is trying to quit. Will follow-up at 6 months. In the interim, we discussed about cardiac symptoms like chest pains and if any such occurrence, advised him to contact us immediately. Coding Level of Care Code Est Pt Level 4 (53151) Diagnoses Atherosclerotic cardiovascular disease I25.10 PAD (peripheral artery disease) I73.9 Primary hypertension I10 Hypertension type: primary hypertension Nicotine dependence, cigarettes, uncomplicated F17.210
[2023-11-25 12:48] VITALS: BP 120/78; PULSE 83; BMI 25.3
== END 2023-11-25 13:24 | disposition home or self-care (01) ==
PROVIDERS: PCP Internal Medicine Medical Oncology; Visit Provider Internal Medicine
DX: I25.10 Atherosclerotic heart disease of native coronary artery without angina pectoris (principal); I73.9 Peripheral vascular disease, unspecified; I10 Essential (primary) hypertension; F17.210 Nicotine dependence, cigarettes, uncomplicated
CPT/HCPCS: 99214

== ENCOUNTER → 2023-11-25 12:41 | Outpatient (BNVA) | payer BC, OTHER, SELFPAY | PROVIDERS: PCP Internal Medicine Medical Oncology; Visit Provider Internal Medicine ==

== ENCOUNTER 2023-11-26 13:52 | Outpatient (AMB) | payer BC, OTHER, SELFPAY ==
[2023-11-26 13:57] VITALS: BP 110/62; PULSE 76; O2SAT 99; BMI 25.3
--- NOTE | 2023-11-26 13:57 | MHC.OFFVIS ---
Intake Vital Signs 11/26/23 13:57 Height 5 ft 10 in Weight 176 lb 5.917 oz BMI 25.3 BP 110/62 Blood Pressure Location Lt brachial Position Sitting Pulse 76 Pulse Source Pulse Oximeter Pulse Oximetry (%) 99 Oxygen Delivery Method Room Air Intake Visit Reasons: Dyspnea Intake Note: pt is here for follow up and states he is not liking the Breo too much, he doesn't take him all day like symbicort. 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 Allergies nabumetone Adverse Reaction (Unknown, Verified 11/26/23 14:20) green stools Medication List - Last Reconciled 11/26/23 by Natalie Lino MD amlodipine 10 mg PO DAILY 90 days aspirin (Adult Aspirin Regimen) 81 mg PO DAILY clopidogrel (Plavix) 75 mg PO DAILY fluticasone furoate-vilanterol 200-25 mcg/dose (Breo Ellipta) 1 inh inhalation DAILY 90 days ibuprofen 800 mg PO Q8H PRN 90 days ipratropium-albuterol 20-100 mcg/actuation (Combivent Respimat) 1 puff inhalation Q6H PRN pantoprazole 40 mg PO DAILY rosuvastatin (Crestor) 20 mg PO DAILY sildenafil 100 mg PO DAILY PRN Do you need a note to return to daycare/school/sports/work: No HPI Dyspnea HPI Details 63 years old gentleman, with moderately severe obstructive airway disorder, continued smoker, and has peripheral vascular disease, Recently underwent revision of the fem- pop bypass on the left side. He continues to smoke 1 pack of cigarettes a day, intends to start on Chantix and cut down smoking. His Symbicort has been changed to Breo , and he is experiencing increased cough and shortness of breath at night. So he thinks Breo is not working as good as Symbicort because he used to use 2 puffs b.i.d.. He does have Combivent Respimat but he was using it only once a day. [facility] Medical History Porphyria cutanea tarda Hereditary hemochromatosis Nicotine dependence, cigarettes, uncomplicated Murmur SOB (shortness of breath) ETOH abuse Arthritis GERD (gastroesophageal reflux disease) HTN (hypertension) COPD (chronic obstructive pulmonary disease) Tubular adenoma of colon Surgical History History of femoropopliteal bypass (11/02/23) History of femoropopliteal bypass History of colonoscopy S/P angiogram of extremity History of esophagogastroduodenoscopy History of lipoma History of skin graft History of removal of cyst History of foot surgery Family History Father Diabetes Stroke Hypertension Mother Chronic mental illness Family/Other FH: mental illness Social History Household Members: Spouse Housing: House Are you a primary medicare coordinator to a significant other at home: No Do you presently have visiting nurse or other home services: No 75 years or older and lives alone: No Alcohol intake: current Alcohol intake frequency: a few times a month Alcohol type: beer Comment: residual pain in left foot, but much improved and tolerable per patient. 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 occupational exposures/hazards: No Cognitive needs: No Hearing needs: No Vision needs: Yes Review of Systems Const All systems reviewed & are unremarkable except as noted in HPI and below Eyes Reports no additional complaints ENT Reports no additional complaints Card Denies chest pain, Denies irregular heart rhythm and Denies leg edema Resp Reports as per HPI GI Reports no additional complaints Reports erectile dysfunction Musc Reports no additional complaints Skin/Breast Reports system reviewed and no additional complaints, except as documented Neuro Reports no additional complaints Psych Reports no additional complaints Endo Reports no additional complaints Terrell/Lymph Reports other (h/o polycythemia ) Physical Exam Vital Signs: Last Vital Signs Pulse 76 11/26/23 13:57 BP 110/62 11/26/23 13:57 Pulse Ox 99 11/26/23 13:57 Oxygen Delivery Method Room Air 11/26/23 13:57 BMI result Body Mass Index 25.3 Const General: comfortable, no acute distress, alert and awake Orientation/consciousness: patient oriented x3 HEENT Head: Yes normal to inspection General nose exam: No nasal polyps present and No nasal discharge present Face and sinus: Yes sinuses nontender Mouth: oropharynx normal Throat: Yes posterior oropharynx normal Eyes General: appearance normal, both eyes and all related structures Neck Neck: Yes normal visual inspection, Yes no lymphadenopathy, Yes trachea midline and Yes no JVD Thyroid: Thyroid normal Chest Chest palpation & inspection: normal inspection of the chest, normal palpation of entire chest wall and no tenderness Resp Other: Percussion note resonant, breath sounds are distant with prolonged expiratory phase. LUNGS ARE CLEAR AND NO WHEEZES OR CREPITATIONS ARE HEARD TODAY. Cardio Palpation: normal PMI Rate: regular rate Rhythm: regular rhythm Heart sounds: no gallops and no murmurs GI Palpation (GI): Soft to palpation, nontender, No hepatosplenomegaly present and no masses Auscultation: normal bowel sounds Back/Spine/Pelvis Thoracic/Lumbar Spine: thoracic and lumbar spine normal to inspection Skin General skin exam: no rashes or lesions noted Neuro General: patient oriented x3 and no focal motor deficits Cranial nerves: Yes CN's II-XII intact bilaterally Extrem General: Yes normal to inspection, Yes no clubbing, cyanosis or edema and Yes no calf tenderness Psych Appearance: grossly normal and well kempt Speech and movement: Normal speech and movement present Assessment & Plan Assessment & Plan (1) Nicotine dependence, cigarettes, uncomplicated: Comment: (current smoker, onset 17yo, 1ppd x 45yrs, 45pyh) , has cut down to 15 cigarettes a day . Code(s): F17.210 - Nicotine dependence, cigarettes, uncomplicated Plan: I talked to him that he has to plan on quitting completely. His primary care physician Dr. Huertas has prescribed Chantix and he wants to start on that. (2) COPD (chronic obstructive pulmonary disease): Comment: COPD is moderately severe, secondary to smoking, Is relatively stable at this time. Code(s): J44.9 - Chronic obstructive pulmonary disease, unspecified Qualifiers: COPD type: chronic bronchitis Chronic bronchitis type: simple Qualified Code(s): J41.0 - Simple chronic bronchitis Plan: I explained to him that Breo 200-25 is just as good as Symbicort and it is only once a day. He can try to take it little bit later in the morning hours. Also use Combivent Respimat 1 inhalation Q 6 hours p.r.n. so in the evenings if he feels more short of breath he can have 1 inhalation of Combivent Coding Level of Care Code Est Pt Level 3 (67863) Diagnoses Nicotine dependence, cigarettes, uncomplicated F17.210 Simple chronic bronchitis J41.0 COPD type: chronic bronchitis Chronic bronchitis type: simple
== END 2023-11-26 14:21 | disposition home or self-care (01) ==
PROVIDERS: PCP Internal Medicine Medical Oncology; Visit Provider Internal Medicine
DX: F17.210 Nicotine dependence, cigarettes, uncomplicated (principal); J41.0 Simple chronic bronchitis
CPT/HCPCS: 99213

== ENCOUNTER → 2023-11-26 13:52 | Outpatient (BNVA) | payer BC, OTHER, SELFPAY | PROVIDERS: PCP Internal Medicine Medical Oncology; Visit Provider Internal Medicine ==

== ENCOUNTER 2023-11-27 11:03 | Outpatient (REF) | payer BC, OTHER, SELFPAY ==
--- NOTE | ~2023-11-27 | XR_ITS ---
EXAMINATION: XR THORACIC SPINE XR LUMBAR SPINE CLINICAL INFORMATION: Back pain. COMPARISON: 07/08/2019 and 09/18/2015 TECHNIQUE: AP, lateral and swimmer's views of the thoracic spine were obtained. AP, lateral and bilateral oblique views of the lumbar spine were obtained. FINDINGS: Thoracic spine: There are 12 rib-bearing thoracic vertebral bodies. Normal sagittal alignment. Vertebral body heights are maintained. Multilevel ventral osteophytes. Pedicles are intact. Lumbar spine: There are 5 nonrib-bearing lumbar vertebral bodies. Minimal retrolisthesis of L2 on L3 unchanged from prior. Vertebral body heights are maintained. Intervertebral disc spaces are preserved. Facet hypertrophy at L3-L4, L4-L5 and L5-S1. Sclerotic changes of the sacroiliac joints. Atherosclerotic changes of the abdominal aorta. XR/XR lumbar spine 4V min IMPRESSION: No acute abnormality.
--- NOTE | ~2023-11-27 | XR_ITS ---
EXAMINATION: XR THORACIC SPINE XR LUMBAR SPINE CLINICAL INFORMATION: Back pain. COMPARISON: 07/08/2019 and 09/18/2015 TECHNIQUE: AP, lateral and swimmer's views of the thoracic spine were obtained. AP, lateral and bilateral oblique views of the lumbar spine were obtained. FINDINGS: Thoracic spine: There are 12 rib-bearing thoracic vertebral bodies. Normal sagittal alignment. Vertebral body heights are maintained. Multilevel ventral osteophytes. Pedicles are intact. Lumbar spine: There are 5 nonrib-bearing lumbar vertebral bodies. Minimal retrolisthesis of L2 on L3 unchanged from prior. Vertebral body heights are maintained. Intervertebral disc spaces are preserved. Facet hypertrophy at L3-L4, L4-L5 and L5-S1. Sclerotic changes of the sacroiliac joints. Atherosclerotic changes of the abdominal aorta. XR/XR thoracic spine 2V IMPRESSION: No acute abnormality.
== END 2023-11-27 11:04 | disposition home or self-care (01) ==
LOC: HO.XRAY 11:03
PROVIDERS: PCP Internal Medicine Medical Oncology; Visit Provider Internal Medicine Medical Oncology
DX: Z13.89 Encounter for screening for other disorder (principal)

== ENCOUNTER 2023-11-30 09:15 | Outpatient (REF) | payer BC, OTHER, SELFPAY | END 2023-11-30 09:16 | disposition home or self-care (01) | LOC: HO.XRAY 09:15 | PROVIDERS: PCP Internal Medicine Medical Oncology; Visit Provider Internal Medicine Medical Oncology | DX: M54.50 Low back pain, unspecified (principal); M54.6 Pain in thoracic spine | CPT/HCPCS: 72070; 72110 ==

== ENCOUNTER 2023-12-01 11:18 | Outpatient (AMB) | payer BC, OTHER, SELFPAY ==
[2023-12-01 11:29] VITALS: BMI 24.2
--- NOTE | 2023-12-01 11:29 | A.OFFVIS_ITS ---
Intake Vital Signs 12/01/23 11:29 Height 5 ft 10 in Weight 169 lb BMI 24.2 Intake Visit Reasons: follow up fem pop bypass issues Intake Note: follow up add-on for Left LE fem pop bypass revision 11/02/23, starting a few day ago pt noted swelling, warmth to touch and slight redness, no pain. Elevation only somewhat helped. Accompanied by: Self / Same As Patient Allergies nabumetone Adverse Reaction (Unknown, Verified 12/01/23 11:32) green stools HPI follow up fem pop bypass issues HPI Details Very pleasant 63-year-old gentleman presents for follow-up status post left fem-pop revision. Had significant swelling of that left lower extremity which was concerning to him. He now presents for follow-up evaluation. [facility] Medical History Porphyria cutanea tarda Hereditary hemochromatosis Nicotine dependence, cigarettes, uncomplicated Murmur SOB (shortness of breath) ETOH abuse Arthritis GERD (gastroesophageal reflux disease) HTN (hypertension) COPD (chronic obstructive pulmonary disease) Tubular adenoma of colon Surgical History History of femoropopliteal bypass (11/02/23) History of femoropopliteal bypass History of colonoscopy S/P angiogram of extremity History of esophagogastroduodenoscopy History of lipoma History of skin graft History of removal of cyst History of foot surgery Family History Father Diabetes Stroke Hypertension Mother Chronic mental illness Family/Other FH: mental illness Social History Household Members: Spouse Housing: House Are you a primary hearing care professional to a significant other at home: No Do you presently have visiting nurse or other home services: No 75 years or older and lives alone: No Alcohol intake: current Alcohol intake frequency: a few times a month Alcohol type: beer Comment: residual pain in left foot, but much improved and tolerable per patie nt. 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 occupational exposures/hazards: No Cognitive needs: No Hearing needs: No Vision needs: Yes Review of Systems Const All systems reviewed & are unremarkable except as noted in HPI and below Reports no additional complaints ENT Reports Normal hearing present Card Denies chest pain, Denies chest pain at rest, Denies chest pain with activity and Denies pedal edema Resp Denies cough GI Denies abdominal pain Musc Denies abnormal gait, Denies muscle cramps and Denies radiating pain into limb Skin/Breast Denies skin ulcer and Denies wounds Neuro Reports Normal hearing present and Denies abnormal gait Psych Reports no additional complaints Physical Exam Vital Signs: BMI result Body Mass Index 24.2 Const General: cooperative, healthy appearing and comfortable Orientation/consciousness: oriented to person, oriented to place and oriented to time HEENT Head: Yes normal to inspection Neck Neck: Yes normal visual inspection Carotids: no bruits Chest Chest palpation & inspection: normal inspection of the chest Resp Effort & Inspection: normal respiratory effort and able to speak in complete sentences Auscultation: clear to auscultation bilaterally, no crackles, no rales, no rhonchi and no wheezes Cardio Other: Patient had triphasic popliteal signal along with a posterior tibial signal Rate: regular rate Rhythm: regular rhythm Heart sounds: S1 normal heart sound present and S2 normal heart sound present Bruits: no carotid bruits Peripheral pulses: Peripheral pulses 2+ throughout GI Inspection: Yes normal to inspection Skin Wounds: no wounds Hair: normal Neuro General: oriented to person, oriented to place and oriented to time Cranial nerves: Yes CN's II-XII intact bilaterally and Yes Normal hearing present Cognition (Neuro): normal cognition Motor exam (neuro): 5/5 motor strength present throughout Extrem Other: venous exam: No significant superficial varicosities or spider telangiectasias, minimal edema General: No clubbing, No cyanosis and No edema Psych Appearance: grossly normal Mental Status: mental status grossly normal Speech and movement: Normal speech and movement present Assessment & Plan Assessment & Plan (1) PAD (peripheral artery disease): Comment: 06/16/2022 - left femoral to popliteal bypass 10/21/2023 - Left external iliac plasty 11/02/2023 - thrombectomy of left fem-pop bypass with distal anastomosis plasty Code(s): I73.9 - Peripheral vascular disease, unspecified Plan: In short patient has a functioning fem-pop bypass graft. Edema may be secondary to increased usage. We did discuss conservative measures including elevation and use of Tubigrip stockings. He has routine surveillance arterial follow-up scheduled with us. Will follow up with us after testing. Thank you for allowing us to assist in his care. If there are any questions or concerns please do not hesitate to contact us. 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 Coding Level of Care Code Est Pt Level 3 (14719) Diagnoses PAD (peripheral artery disease) I73.9
== END 2023-12-01 12:05 | disposition home or self-care (01) ==
LOC: HO.HVS 11:20
PROVIDERS: PCP Internal Medicine Medical Oncology; Visit Provider Surgery Vascular Surgery
DX: I73.9 Peripheral vascular disease, unspecified (principal)
CPT/HCPCS: 99024

== ENCOUNTER → 2023-12-01 11:18 | Outpatient (BNVA) | payer BC, OTHER, SELFPAY | PROVIDERS: PCP Internal Medicine Medical Oncology; Visit Provider Surgery Vascular Surgery ==

== ENCOUNTER 2024-01-05 11:23 | Outpatient (REF) | payer BC, OTHER, SELFPAY ==
--- NOTE | ~2024-01-05 | XR_ITS ---
EXAMINATION: XR HIP, RIGHT CLINICAL INFORMATION: Right hip pain. COMPARISON: Left hip radiographs dated 07/08/2019. TECHNIQUE: AP and frog-leg lateral views of the right hip are submitted, together with a frontal view of the pelvis. FINDINGS: Bony alignment and mineralization are normal. The acetabular joint spaces are symmetric and well-maintained. There are tiny peripheral osteophytes of the acetabular roofs. The femoral heads are smooth. No fracture or dislocation is seen. The sacroiliac joints are symmetric and well-maintained. The pubic symphysis is intact. There are bilateral iliofemoral atherosclerotic calcifications. XR/XR hip RT w PEL1V IMPRESSION: There are minimal degenerative changes of the hips. No fracture or dislocation is seen.
== END 2024-01-05 11:24 | disposition home or self-care (01) ==
LOC: HO.XRAY 11:23
PROVIDERS: Visit Provider Student in an Organized Health Care Education/Training Program
DX: M25.551 Pain in right hip (principal)
CPT/HCPCS: 73502

== ENCOUNTER 2024-02-09 13:17 | Outpatient (REF) | payer BC, OTHER, SELFPAY | END 2024-02-09 13:18 | disposition home or self-care (01) | LOC: HO.LNP 13:17 | PROVIDERS: Visit Provider Internal Medicine Medical Oncology | DX: Z13.89 Encounter for screening for other disorder (principal) ==

== ENCOUNTER 2024-02-15 07:52 | Outpatient (REF) | payer BC, OTHER, SELFPAY ==
--- NOTE | ~2024-02-15 | US_ITS ---
EXAMINATION: Noninvasive assessment of the bilateral lower extremities with ARTERIAL DUPLEX and ANKLE BRACHIAL INDICES (ABIs). CLINICAL INFORMATION: Peripheral vascular disease with left femoropopliteal bypass graft TECHNIQUE: Duplex Doppler techniques with waveform analysis and measurement of velocities in the bilateral common femoral, profunda femoris, superficial femoral, popliteal and tibial arteries were performed. Additionally, ankle pulse volume recordings, ankle pressure measurements and ankle brachial indices were obtained of the lower extremity arterial system bilaterally. The study was performed only at rest. COMPARISON: 09/07/2023 and 11/11/2022 FINDINGS: DIRECT DUPLEX DOPPLER FINDINGS: RIGHT LEG: Common femoral artery: 155 cm/s, phasicity: Triphasic Profunda femoris artery: 101 cm/s, phasicity: Biphasic Superficial femoral artery (proximal): 62.6 cm/s, phasicity: Biphasic Superficial femoral artery (mid): 32.4 cm/s, phasicity: Biphasic Superficial femoral artery (distal): 18 cm/s, phasicity: Monophasic Popliteal artery: 14.6 cm/s, phasicity: Monophasic Posterior tibial artery: 25.5 cm/s, phasicity: Monophasic Peroneal artery: 19 cm/s, phasicity: Monophasic Anterior tibial artery: 58.7 cm/s, phasicity: Biphasic Dorsalis pedis artery: Occluded LEFT LEG: Common femoral artery: 115 cm/s, phasicity: Triphasic Profunda femoris artery: 83 cm/s, phasicity: Biphasic Femoropopliteal bypass graft, anastomosis: 228 cm/s, phasicity: Biphasic Femoropopliteal bypass graft (proximal): 102 cm/s, phasicity: Triphasic Femoropopliteal bypass graft (mid): 97 cm/s, phasicity: Triphasic Femoropopliteal bypass graft (distal): 85 cm/s, phasicity: Triphasic Femoropopliteal bypass graft, anastomosis: 98.3 cm/s, phasicity: triphasic Popliteal artery: 59 cm/s, phasicity: Triphasic Posterior tibial artery: 21.9 cm/s, phasicity: Biphasic Peroneal artery: 100 cm/s, phasicity: Triphasic Anterior tibial artery: 26.8 cm/s, phasicity: Biphasic Dorsalis pedis artery: 32.7 cm/s, phasicity: Biphasic ANKLE-BRACHIAL INDEX: Right: 0.7, previously 0.87? Left: 1.06, previously 0.74 ANKLE PRESSURES: Right: PT 88, DP 108 Left: PT?164, DP?160 ANKLE PVR WAVEFORMS: Right: Abnormal Left: Normal US/US arterial duplex LE BI IMPRESSION: Right leg: Moderately decreased ankle brachial index. Dampened waveforms and decrease velocities within the distal superficial femoral artery through the below-knee runoff vessels consistent with none visualized stenoses/occlusion Left leg: Normal ankle brachial index and arterial waveforms. Widely patent femoropopliteal bypass graft KAI Reference: - >1.4 = calcified vessels - 0.9 - 1.4 = normal - no significant arterial disease - 0.7 - 0.89 = mild peripheral arterial disease - 0.51 - 0.69 = moderate peripheral arterial disease - ? 0.50 = severe peripheral arterial disease - < .30 = critical arterial disease
== END 2024-02-15 07:53 | disposition home or self-care (01) ==
LOC: HO.US 07:52
PROVIDERS: PCP Internal Medicine Medical Oncology; Visit Provider Surgery Vascular Surgery
DX: I73.9 Peripheral vascular disease, unspecified (principal)
CPT/HCPCS: 93923; 93925

== ENCOUNTER 2024-02-16 15:48 | Outpatient (AMB) | payer BC, OTHER, SELFPAY ==
--- NOTE | 2024-02-16 15:52 | A.OFFVIS_ITS ---
Vital Signs 02/16/24 15:53 Height 5 ft 10 in Weight 176 lb 5.917 oz BMI 25.3 BP 142/78 H Blood Pressure Location Lt brachial Position Sitting Pulse 88 Pulse Source Pulse Oximeter Pulse Oximetry (%) 97 Oxygen Delivery Method Room Air Intake Visit Reasons: COPD follow-up Intake Note: pt is here for follow up and states his breathing is okay as long as he is not doing much, and takes it easy. pt would like a 3 month supply sent in for symbicort to [facility] with 3 refills for the year. He prefers symbicort to Breo. 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 Allergies nabumetone Adverse Reaction (Unknown, Verified 02/16/24 16:16) green stools Medication List - Last Reconciled 02/16/24 by Natalie Lino MD amlodipine 10 mg PO DAILY 90 days aspirin (Adult Aspirin Regimen) 81 mg PO DAILY clopidogrel 75 mg PO DAILY ibuprofen 800 mg PO Q8H PRN 90 days ipratropium-albuterol 20-100 mcg/actuation (Combivent Respimat) 1 puff inhalation Q6H PRN 90 days pantoprazole 40 mg PO DAILY rosuvastatin (Crestor) 20 mg PO DAILY sildenafil 100 mg PO DAILY PRN Do you need a note to return to daycare/school/sports/work: No HPI HPI COPD follow-up: Details: This 63 years old very pleasant gentleman, is known to have rather severe chronic obstructive pulmonary disease. 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 As his job he is required to do heavy physical cul and sometimes strenuous work. He claims that he is not able to do this work. In addition he also has peripheral vascular disease, hypertension and cardiovascular disease. He is looking for a medical letter to, support his disability. [facility] Medical History Porphyria cutanea tarda Hereditary hemochromatosis Nicotine dependence, cigarettes, uncomplicated Murmur SOB (shortness of breath) ETOH abuse Arthritis GERD (gastroesophageal reflux disease) HTN (hypertension) COPD (chronic obstructive pulmonary disease) Tubular adenoma of colon Surgical History History of femoropopliteal bypass (11/02/23) History of femoropopliteal bypass History of colonoscopy S/P angiogram of extremity History of esophagogastroduodenoscopy History of lipoma History of skin graft History of removal of cyst History of foot surgery Family History Father Diabetes Stroke Hypertension Mother Chronic mental illness Family/Other FH: mental illness Social History Household Members: Spouse Housing: House Are you a primary care services manager to a significant other at home: No Do you presently have visiting nurse or other home services: No 75 years or older and lives alone: No Alcohol intake: current Alcohol intake frequency: a few times a month Alcohol type: beer Comment: residual pain in left foot, but much improved and tolerable per patient. 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 occupational exposures/hazards: No Cognitive needs: No Hearing needs: No Vision needs: Yes Review of Systems Const All systems reviewed & are unremarkable except as noted in HPI and below Eyes Reports no additional complaints ENT Reports no additional complaints Card Denies chest pain, Denies irregular heart rhythm and Denies leg edema Resp Reports as per HPI GI Reports no additional complaints Reports erectile dysfunction Musc Reports no additional complaints Skin/Breast Reports system reviewed and no additional complaints, except as documented Neuro Reports no additional complaints Psych Reports no additional complaints Endo Reports no additional complaints Terrell/Lymph Reports other (h/o polycythemia ) Physical Exam Vital Signs: Last Vital Signs Pulse 88 02/16/24 15:53 BP 142/78 H 02/16/24 15:53 Pulse Ox 97 02/16/24 15:53 Oxygen Delivery Method Room Air 02/16/24 15:53 BMI result Body Mass Index 25.3 Const General: comfortable, no acute distress, alert and awake Orientation/consciousness: patient oriented x3 HEENT Head: Yes normal to inspection General nose exam: No nasal polyps present and No nasal discharge present Face and sinus: Yes sinuses nontender Mouth: oropharynx normal Throat: Yes posterior oropharynx normal Eyes General: appearance normal, both eyes and all related structures Neck Neck: Yes normal visual inspection, Yes no lymphadenopathy, Yes trachea midline and Yes no JVD Thyroid: Thyroid normal Chest Chest palpation & inspection: normal inspection of the chest, normal palpation of entire chest wall and no tenderness Resp Other: Percussion note resonant, breath sounds are distant with prolonged expiratory phase. LUNGS ARE CLEAR AND NO WHEEZES OR CREPITATIONS ARE HEARD TODAY. Cardio Palpation: normal PMI Rate: regular rate Rhythm: regular rhythm Heart sounds: no gallops and no murmurs GI Palpation (GI): Soft to palpation, nontender, No hepatosplenomegaly present and no masses Auscultation: normal bowel sounds Back/Spine/Pelvis Thoracic/Lumbar Spine: thoracic and lumbar spine normal to inspection Skin General skin exam: no rashes or lesions noted Neuro General: patient oriented x3 and no focal motor deficits Cranial nerves: Yes CN's II-XII intact bilaterally Extrem General: Yes normal to inspection, Yes no clubbing, cyanosis or edema and Yes no calf tenderness Psych Appearance: grossly normal and well kempt Speech and movement: Normal speech and movement present Assessment & Plan Assessment & Plan (1) COPD (chronic obstructive pulmonary disease): Comment: COPD is severe, secondary to smoking, Is relatively stable at this time, but he becomes symptomatic when doing any heavy physical work. He is also complaining of high [id number] . [place] for his meds As per his new insurance, he is in title to get Symbicort with a reasonable co- payment. Code(s): J44.9 - Chronic obstructive pulmonary disease, unspecified Category: Medical Qualifiers: COPD type: chronic bronchitis Chronic bronchitis type: simple Qualified Code(s): J41.0 - Simple chronic bronchitis Plan: Symbicort 160-4.52 puffs b.i.d. Prescription for 90 day supply with 3 refills is being sent. He should use Combivent Respimat 1 inhalation Q 6 hours only p.r.n. (2) Nicotine dependence, cigarettes, uncomplicated: Comment: (current smoker, onset 17yo, 1ppd x 45yrs, 45pyh) , has cut down to 15 cigarettes a day . Code(s): F17.210 - Nicotine dependence, cigarettes, uncomplicated Category: Medical Plan: Counseled that he must quit smoking completely. He say is he is working towards that goal Medications: New budesonide-formoterol 160-4.5 mcg/actuation (Symbicort) 2 puffs inhalation BID 90 days 10.2 grams 3RF copd Coding Level of Care Code Est Pt Level 3 (17942) Diagnoses Simple chronic bronchitis J41.0 COPD type: chronic bronchitis Chronic bronchitis type: simple Nicotine dependence, cigarettes, uncomplicated F17.210
[2024-02-16 15:53] VITALS: BP 142/78; PULSE 88; O2SAT 97; BMI 25.3
== END 2024-02-16 16:14 | disposition home or self-care (01) ==
PROVIDERS: PCP Internal Medicine Medical Oncology; Visit Provider Internal Medicine
DX: J41.0 Simple chronic bronchitis (principal); F17.210 Nicotine dependence, cigarettes, uncomplicated
CPT/HCPCS: 99213

== ENCOUNTER → 2024-02-16 15:48 | Outpatient (BNVA) | payer BC, OTHER, SELFPAY | PROVIDERS: PCP Internal Medicine Medical Oncology; Visit Provider Internal Medicine ==

== ENCOUNTER 2024-02-18 09:56 | Outpatient (AMB) | payer BC, OTHER, SELFPAY ==
--- NOTE | 2024-02-18 09:59 | A.OFFVIS_ITS ---
Intake Visit Reasons: F/U Art US 02/15/24 Intake Note: Patient presents for follow up 02/14 arterial US. He is experiencing some swelling. No cramping, heaviness or pain. Accompanied by: Self / Same As Patient Allergies nabumetone Adverse Reaction (Unknown, Verified 02/18/24 10:01) green stools HPI HPI F/U Art US 02/15/24: Details: Very pleasant 63-year-old gentleman presents for surveillance arterial follow- up. He would undergone left fem-pop bypass revision in October of 2023. Reports he is doing fairly well. The only complaint is the edema of the left leg. Is ambulating distances of at least 1 block. His left leg feels fine he is actually feeling some symptoms of claudication after block on the right side. He now presents for follow-up with noninvasive testing. Of note he is being maintained on aspirin and statin. [facility] Medical History Porphyria cutanea tarda Hereditary hemochromatosis Nicotine dependence, cigarettes, uncomplicated Murmur SOB (shortness of breath) ETOH abuse Arthritis GERD (gastroesophageal reflux disease) HTN (hypertension) COPD (chronic obstructive pulmonary disease) Tubular adenoma of colon Surgical History History of femoropopliteal bypass (11/02/23) History of femoropopliteal bypass History of colonoscopy S/P angiogram of extremity History of esophagogastroduodenoscopy History of lipoma History of skin graft History of removal of cyst History of foot surgery Family History Father Diabetes Stroke Hypertension Mother Chronic mental illness Family/Other FH: mental illness Social History Household Members: Spouse Housing: House Are you a primary transitions rn care coordinator to a significant other at home: No Do you presently have visiting nurse or other home services: No Alcohol intake: current Alcohol intake frequency: a few times a month Alcohol type: beer Comment: residual pain in left foot, but much improved and tolerable per patient. 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 occupational exposures/hazards: No Cognitive needs: No Hearing needs: No Vision needs: Yes Review of Systems Const All systems reviewed & are unremarkable except as noted in HPI and below Reports no additional complaints ENT Reports Normal hearing present Card Denies chest pain, Denies chest pain at rest, Denies chest pain with activity and Denies pedal edema Resp Denies cough GI Denies abdominal pain Musc Denies abnormal gait, Denies muscle cramps and Denies radiating pain into limb Skin/Breast Denies skin ulcer and Denies wounds Neuro Reports Normal hearing present and Denies abnormal gait Psych Reports no additional complaints Physical Exam Const General: cooperative, healthy appearing and comfortable Orientation/consciousness: oriented to person, oriented to place and oriented to time HEENT Head: Yes normal to inspection Neck Neck: Yes normal visual inspection Carotids: no bruits Chest Chest palpation & inspection: normal inspection of the chest Resp Effort & Inspection: normal respiratory effort and able to speak in complete sentences Auscultation: clear to auscultation bilaterally, no crackles, no rales, no rhonchi and no wheezes Cardio Other: Bilateral DP signals Rate: regular rate Rhythm: regular rhythm Heart sounds: S1 normal heart sound present and S2 normal heart sound present Bruits: no carotid bruits GI Inspection: Yes normal to inspection Skin Wounds: no wounds Hair: normal Neuro General: oriented to person, oriented to place and oriented to time Cranial nerves: Yes CN's II-XII intact bilaterally and Yes Normal hearing present Cognition (Neuro): normal cognition Motor exam (neuro): 5/5 motor strength present throughout Extrem Other: venous exam: No significant superficial varicosities or spider telangiectasias, minimal edema General: No clubbing, No cyanosis and No edema Psych Appearance: grossly normal Mental Status: mental status grossly normal Speech and movement: Normal speech and movement present Results Reviewed Results Reviewed: Arterial testing dated 02/15/2024 demonstrates KAI on the right of 0.7 and on the left of 1.06. Written report and images were reviewed Assessment & Plan Assessment & Plan (1) PAD (peripheral artery disease): Comment: 06/16/2022 - left femoral to popliteal bypass 10/21/2023 - Left external iliac plasty 11/02/2023 - thrombectomy of left fem-pop bypass with distal anastomosis plasty Code(s): I73.9 - Peripheral vascular disease, unspecified Category: Medical Plan: In short bypass appears to be patent. At the current time he has a stable claudication. We did discuss risk factor modification. We will plan for surveillance ultrasound in 6 months time. Orders: Orders US arterial duplex LE BI 6 Months I73.9 - Peripheral vascular disease, unspecified Coding Level of Care Code Est Pt Level 4 (51734) Diagnoses PAD (peripheral artery disease) I73.9
== END 2024-02-18 10:19 | disposition home or self-care (01) ==
PROVIDERS: PCP Internal Medicine Medical Oncology; Visit Provider Surgery Vascular Surgery
DX: I73.9 Peripheral vascular disease, unspecified (principal)
CPT/HCPCS: 99213

== ENCOUNTER → 2024-02-18 09:56 | Outpatient (BNVA) | payer BC, OTHER, SELFPAY | PROVIDERS: PCP Internal Medicine Medical Oncology; Visit Provider Surgery Vascular Surgery ==

== ENCOUNTER 2024-02-18 11:00 | Outpatient (RCR) | payer BC, OTHER, SELFPAY | END 2024-05-02 09:50 | disposition home or self-care (01) | LOC: HO.PT 11:00 | PROVIDERS: PCP Internal Medicine Medical Oncology; Visit Provider Student in an Organized Health Care Education/Training Program | DX: M54.50 Low back pain, unspecified (principal) | CPT/HCPCS: 97110; 97112; 97140; 97162 ==

== ENCOUNTER 2024-02-28 07:13 | Emergency (ER) | payer BC, OTHER, SELFPAY ==
--- NOTE | ~2024-02-28 | XR_ITS ---
EXAMINATION: XR CHEST CLINICAL INFORMATION: Shortness of breath COMPARISON: None available. TECHNIQUE: 2 views of the chest were obtained. FINDINGS: No significant abnormality is noted involving the heart, lungs, mediastinum, bony thorax or soft tissues. Degenerative changes of the thoracic spine. XR/XR chest 2V IMPRESSION: No evidence for acute disease in the chest.
[2024-02-28 07:25] VITALS: BP 122/77; PULSE 101; RESP 20; TEMP 36.6; O2SAT 95; BMI 25.5
[2024-02-28 07:56] LABS: MANUAL DIFF FLAG NO
[2024-02-28 08:01] LABS: Basophils Percent Auto 0.3 % (0-2); Hematocrit 36.5 % (42.0-52.0); Hemoglobin 12.8 g/dl (14.0-18.0); Imm Gran Abs Auto 0.05 X10*3/uL (0.00-0.03); Imm Gran Pct Auto 0.8 % (0.0-0.4); Lymphocytes Absolute Auto 1.2 X10*3/uL (1.2-4.9); Lymphocytes Percent Auto 17.9 % (20-40); Mean Corpuscular HGB Conc 35.1 g/dl (31.0-36.0); Mean Corpuscular Hemoglobin 29.4 pg (27.0-33.0); Mean Corpuscular Volume 83.9 fL (80.0-98.0); Mean Platelet Volume 8.7 fL (9.4-12.4); Monocytes Absolute Auto 0.8 X10*3/uL (0.1-1.2); Monocytes Percent Auto 12.2 % (2-11); Neutrophils Absolute Auto 4.5 x10*3/uL (2.0-8.3); Neutrophils Percent Auto 68.8 % (45-73); Platelet Count 241 X10*3/uL (160-400); Red Blood Count 4.35 X10*6/uL (4.60-5.80); Red Cell Distribution Width 14.2 % (11.0-16.0); White Blood Count 6.6 X10*3/uL (4.8-10.8)
[2024-02-28 08:16] LABS: Alanine Aminotransferase 53 U/L (0-40); Albumin Level 4.2 g/dL (3.5-5.0); Alkaline Phosphatase 119 U/L (39-117); Anion Gap 14 (12-20); Aspartate Amino Transferase 51 U/L (5-37); Bilirubin Total 0.4 mg/dL (0.0-1.0); Blood Urea Nitrogen < 3 mg/dL (9-16); Carbon Dioxide 22 mmol/L (22-29); Chloride 100 mmol/L (96-108); Creatinine Clr Calc Pharmacy 111.3; Estimated Glomerular Filt Rate > 60; Glucose Random 104 mg/dL (60-115); Potassium 3.8 mmol/L (3.3-5.1); Sodium 132 mmol/L (135-145); Total Protein 7.9 g/dL (6.5-8.0)
[2024-02-28 08:29] LABS: COVID-19 Test Negative (Negative); IDNOW Serial# 08D9AD1C; IDNOW Serial# 152EDE1D; Influenza A Negative (Negative); Influenza B2 Negative (Negative)
[2024-02-28] MEDS: dexAMETHasone sod phosphate 10 MG/ML VIAL IVPUSH (10:29)
[2024-02-28 10:57] VITALS: PULSE 85; RESP 22; O2SAT 94
[2024-02-28] MEDS: Albuterol Sulfate 5 MG, Albuterol/Iprat 2.5/0.5MG 3 ML 3 ML INHALE (10:57)
[2024-02-28 11:46] VITALS: BP 131/70; PULSE 100; RESP 18; TEMP 36.3; O2SAT 93
--- NOTE | 2024-02-28 11:48 | ED_ITS ---
HPI - URI/Sore Throat General Chief Complaint: Upper Respiratory Symptoms Stated Complaint: Pneumonia Time Seen by Provider: 02/28/24 10:16 Source: patient and family () Mode of arrival: ambulatory Limitations: no limitations History of Present Illness ED Provider: MELISSA CORTEZ PA-C HPI Narrative: 63-year-old male with past medical history significant for HTN, COPD, current tobacco smoker (1 ppd), peripheral artery disease, hemochromatosis, GERD, tubular adenoma of colon, diverticulosis, hemorrhoids presents to the ED today for evaluation of shortness of breath and cough x8 week. Cough is productive of yellow/green sputum. He is not dependent on oxygen at home Reports he was seen by Web MD provider and prescribed amoxicillin, benzonatate and steroids which she has been taking for 1 week now. 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 His at home is ill with similar upper respiratory symptoms. Denies fever, chills, sore throat, hemoptysis, chest pain, wheezing, difficulty breathing. Related Data Previous Rx's ?Medication ?Instructions ?Recorded aspirin 81 mg tablet,delayed 81 mg PO DAILY #90 tabs 09/19/21 release (Adult Aspirin Regimen) ibuprofen 800 mg tablet 800 mg PO Q8H PRN pain 90 days 04/21/22 #270 tabs sildenafil 100 mg tablet 100 mg PO DAILY PRN sexual 04/21/22 activity #5 caps amlodipine 10 mg tablet 10 mg PO DAILY 90 days #90 tabs 10/13/22 pantoprazole 40 mg tablet,delayed 40 mg PO DAILY #90 tabs 10/20/22 release clopidogrel 75 mg tablet 75 mg PO DAILY #90 tabs 01/21/24 rosuvastatin 20 mg tablet (Crestor) 20 mg PO DAILY #90 tabs 02/05/24 ipratropium 20 mcg-albuterol 100 1 puff inhalation Q6H PRN COPD 90 02/09/24 mcg/actuation mist for inhalation days #4 grams (Combivent Respimat) budesonide-formoterol HFA 160 2 puff inhalation BID copd 90 days 02/16/24 mcg-4.5 mcg/actuation aerosol #10.2 grams inhaler (Symbicort) cefuroxime axetil 500 mg tablet 500 mg PO BID 10 days #20 tabs 02/28/24 Allergies Allergy/AdvReac Type Severity Reaction Status Date / Time doxycycline Allergy Hives Verified 02/28/24 07:27 nabumetone AdvReac Unknown green Verified 02/28/24 07:27 stools Review of Systems 2 Review of Systems: Constitutional: No fever, chills, fatigue, night sweats, weight changes ENT/Mouth: No ear pain, hearing loss, nasal congestion, sinus pain, rhinorrhea, sore throat Eyes: No eye pain, swelling, redness, vision changes, discharge Cardio: No chest pain, palpitations, ESTEVES, orthopnea, peripheral edema Pulm: No wheezing, dyspnea, hemoptysis, +cough, +sputum production, +sob GI: No nausea, vomiting, hematemesis, abdominal pain, diarrhea, constipation, hematochezia, melena : No irregular bleeding, dysuria, frequency, urgency, hesitancy, hematuria, flank pain, urinary flow changes, urinary incontinence or retention MSK: No back pain, neck pain, joint pain, myalgias Skin: No lesions, rashes Neuro: No weakness, numbness, paresthesias, LOC, dizziness, headache Psych: No anxiety/panic, depression, SI/HI, AH/VH All other systems reviewed and are negative. FORMERLY [facility], [facility] Past Medical History Attestation statement: The following information was validated with the patient. Source: old records reviewed and nursing notes reviewed Medical History Porphyria cutanea tarda Hereditary hemochromatosis Nicotine dependence, cigarettes, uncomplicated Murmur SOB (shortness of breath) ETOH abuse Arthritis GERD (gastroesophageal reflux disease) HTN (hypertension) COPD (chronic obstructive pulmonary disease) Tubular adenoma of colon Surgical History History of femoropopliteal bypass (11/02/23) History of femoropopliteal bypass History of colonoscopy S/P angiogram of extremity History of esophagogastroduodenoscopy History of lipoma History of skin graft History of removal of cyst History of foot surgery Family History Family History Father Diabetes Stroke Hypertension Mother Chronic mental illness Family/Other FH: mental illness Social History Social History Household Members: Spouse Housing: House Are you a primary special needs child caregiver to a significant other at home: No Do you presently have visiting nurse or other home services: No 75 years or older and lives alone: No Alcohol intake: current Alcohol intake frequency: a few times a month Alcohol type: beer Comment: residual pain in left foot, but much improved and tolerable per patient. 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 occupational exposures/hazards: No Cognitive needs: No Hearing needs: No Vision needs: Yes Physical Exam 2 Vital Signs: Vital Signs: Last Vital Signs Temp 97.3 F 02/28/24 12:04 Pulse 100 02/28/24 12:04 Resp 18 02/28/24 12:04 BP 131/70 02/28/24 12:04 Pulse Ox 93 02/28/24 12:04 O2 Del Method Room Air 02/28/24 12:04 BMI result Body Mass Index 25.5 vitals stable Const: General: cooperative, healthy appearing, comfortable and no acute distress Orientation/consciousness: patient oriented x3 Limitations: no limitations HEENT: Head: Yes normal to inspection, Yes No palpable skull fracture present, Yes normocephalic and Yes atraumatic Eyes: General: appearance normal, both eyes and all related structures C onjunctivae: conjunctivae normal Sclerae: sclerae normal Pupils: Equal, round and reactive pupils present Neck: Neck: Yes normal visual inspection, Yes full ROM, Yes no lymphadenopathy, Yes no meningeal signs and Yes no JVD Chest: Chest palpation & inspection: normal inspection of the chest and normal palpation of entire chest wall Resp: Other: + diffuse expiratory wheezes. no respira tory distress. acitvely coughing. no tripoding or use of accessory muscels. Effort & Inspection: normal respiratory effort Cardio: Jugular venous distension: no JVD Rate: regular rate Rhythm: r egular rhythm Skin: General skin exam: no rashes or lesions noted Neuro: General: patient oriented x3, gait normal and no meningeal signs C ranial nerves: Yes Equal, round and reactive pupils present Course Course Course Narrative: 1145-- CBC without leukocytosis or left shift. Chronic normocytic anemia, stable when compared to priors. Chemistry without acute electrolyte abnormality requiring intervention. Elevated liver enzymes. I did discuss this with patient however he does not complain of abdominal pain, nausea or vomiting. He has tested negative for covid/flu/rsv. CXR unremarkable. no noted consolidations or infiltrates to suggest pneumonia. > patient received Duoneb and decadron with improvement in breathing. his lungs are cta. vitals are stable. will send robertain to pharmacy for suspected copd exacerbation. advised to continue the prednisone he is currently taking at home. Patient has remained stable throughout ED visit today. Discussed worrisome signs and symptoms and when to return to the ED. All questions answered at this time. Patient is agreeable with disposition and stable for discharge. Medications Administered Discontinued Medications Generic Name Dose Route Start Last Admin Trade Name Freq PRN Reason Stop Dose Admin Albuterol Sulfate 5 mg/ 0 mg 02/28/24 10:53 02/28/24 10:57 Albuterol/Ipratropium 3 ml INHALE 02/28/24 10:54 1 each ONCE ONE Administration Dexamethasone Sodium Phosphate 10 mg 02/28/24 10:16 02/28/24 10:29 Dexamethasone Sod Phosphate 10 Mg/Ml Vial IVPUSH 02/28/24 10:17 10 mg ONCE ONE Administration Medical Decision Making Medical Decision Making [facility] Narrative: 63-year-old male with past medical history significant for HTN, COPD, current tobacco smoker (1 ppd), peripheral artery disease, hemochromatosis, GERD, tubular adenoma of colon, diverticulosis, hemorrhoids presents to the ED today for evaluation of shortness of breath and cough x8 week. Initialy tachy to 101, vitals otherwise wnl. on exam, diffuse expiratory wheezes. no respiratory distress. acitvely coughing. no tripoding or use of accessory muscles. skin w/d/i. Differential diagnosis includes copd, copd exacerbation, viral syndrome, bronchitis, pneumonia Plan for labs, viral serology, cxr, re-evaluation. Differential Diagnosis Differential Diagnoses: The differential diagnosis associated with the presentation includes As above Admission/Observation Consideration of admission/observation: Escalation of care including admission/observation considered Admission considered on presentation Lab Data [facility] Lab Attestation statement: I reviewed the patient's lab results. As above 02/28/24 07:51 02/28/24 07:51 Labs: Lab Results 02/28/24 Range/Units 07:51 WBC 6.6 (4.8-10.8) X10*3/uL RBC 4.35 L (4.60-5.80) X10*6/uL Hgb 12.8 L (14.0-18.0) g/dl Hct 36.5 L (42.0-52.0) % MCV 83.9 (80.0-98.0) fL MCH 29.4 (27.0-33.0) pg MCHC 35.1 (31.0-36.0) g/dl RDW 14.2 (11.0-16.0) % Plt Count 241 D (160-400) X10*3/uL MPV 8.7 L (9.4-12.4) fL Immature Gran % (Auto) 0.8 H (0.0-0.4) % Neut % (Auto) 68.8 (45-73) % Lymph % (Auto) 17.9 L (20-40) % [place] % (Auto) 12.2 H (2-11) % Eos % (Auto) 0.0 (0-4) % Baso % (Auto) 0.3 (0-2) % Lymph # (Auto) 1.2 (1.2-4.9) X10*3/uL [place] # (Auto) 0.8 (0.1-1.2) X10*3/uL Eos # (Auto) 0.0 (0.0-0.4) X10*3/uL Baso # (Auto) 0.0 (0.0-0.2) X10*3/uL Abs Immat Gran (auto) 0.05 H (0.00-0.03) X10*3/uL Absolute Neuts (auto) 4.5 (2.0-8.3) x10*3/uL Absolute Nucleated RBC 0.000 (0.0-0.012) X10*3/uL Nucleated RBC % (auto) 0.0 (0.0-0.2) /100WBC Sodium 132 L (135-145) mmol/L Potassium 3.8 (3.3-5.1) mmol/L Chloride 100 (96-108) mmol/L Carbon Dioxide 22 (22-29) mmol/L Anion Gap 14 (12-20) BUN < 3 L (9-16) mg/dL Creatinine 0.71 (0.5-1.4) mg/dL Estim Creat Clear Calc 111.3 Estimated GFR > 60 Random Glucose 104 (60-115) mg/dL Calcium 10.0 D (8.4-10.2) mg/dL Total Bilirubin 0.4 (0.0-1.0) mg/dL AST 51 H (5-37) U/L ALT 53 H (0-40) U/L Alkaline Phosphatase 119 H (39-117) U/L Total Protein 7.9 (6.5-8.0) g/dL Albumin 4.2 (3.5-5.0) g/dL COVID-19 ([facility]) Negative (Negative) COVID-19 Clin Com See Note Influenza Type A ([facility]) Negative (Negative) Influenza Type B ([facility]) Negative (Negative) Influenza A & B Note See Note Independent Interpretation I performed an independent interpretation of an: Plain X-Ray Interpretation: CXR wtithout infiltrate or consolidation, agree with radiologist's interpretation. Radiology Impression Discussion of test interpretation with radiology: I have reviewed the radiologist's reading. Radiologist Impression: EXAMINATION: XR CHEST CLINICAL INFORMATION: Shortness of breath COMPARISON: None available. TECHNIQUE: 2 views of the chest were obtained. FINDINGS: No significant abnormality is noted involving the heart, lungs, mediastinum, bony thorax or soft tissues. Degenerative changes of the thoracic spine. XR/XR chest 2V IMPRESSION: No evidence for acute disease in the chest. Independent Historian Clinical information obtained from an independent historian. History obtained from or confirmed by: Spouse () External Record Review External record reviewed: Inpatient record, Office record, Outpatient record, Prior outpatient labs, Prior outpatient radiology, Primary care record and Outside ED record Prescription Management I considered prescription management with: Antibiotic (ceftin) Chronic Conditions Patient?s care impacted by: Other (COPD) Social Determinants Patient?s care significantly limited by Social Determinants of Health including: Other Social Determinant of Health Critical Care Time Critical Care Time Critical Care Time: No Discharge Plan Discharge Clinical Impression: Acute exacerbation of chronic obstructive pulmonary disease (COPD) Patient Disposition: Home, Self-Care Instructions: COPD (Chronic Obstructive Pulmonary Disease) (ED) Additional Instructions: You tested negative for COVID, flu, RSV. You likely have an exacerbation of your COPD. You were given a breathing treatment along with Decadron ED today with improvement breathing. Ceftin is another antibiotic that has been sent to your pharmacy. Take this as prescribed do not skip any doses as this may cause infection to worsen. Continue your course of prednisone at home. You need to follow-up with your featheredge machine operator. Follow up with PCP. As discussed, return with new or worsening symptoms. If you find that you are using your rescue inhaler more often without improvement, come to the ED for further evaluation. In the case of an emergency call 911. Prescriptions: New cefuroxime axetil 500 mg tablet 500 mg PO BID 10 Days Qty: 20 0RF No Action amlodipine 10 mg tablet 10 mg PO DAILY 90 Days Qty: 90 1RF pantoprazole 40 mg tablet,delayed release (DR/EC) 40 mg PO DAILY Qty: 90 3RF clopidogrel 75 mg tablet 75 mg PO DAILY Qty: 90 1RF rosuvastatin [Crestor] 20 mg tablet 20 mg PO DAILY Qty: 90 0RF Combivent Respimat 20-100 mcg/actuation mist 1 puff inhalation Q6H PRN (Reason: COPD) 90 Days Qty: 4 3RF aspirin [Adult Aspirin Regimen] 81 mg tablet,delayed release (DR/EC) 81 mg PO DAILY Qty: 90 0RF sildenafil 100 mg tablet 100 mg PO DAILY PRN (Reason: sexual activity) Qty: 5 1RF ibuprofen 800 mg tablet 800 mg PO Q8H PRN (Reason: pain) 90 Days Qty: 270 0RF budesonide-formoterol [Symbicort] 160-4.5 mcg/actuation HFA aerosol inhaler 2 puff inhalation BID 90 Days Qty: 10.2 3RF Referrals: Ashish Huertas MD [Primary Care Provider] - Interventions: ED Discharge Assessment Last Done: 02/28/24 12:04 Discharge Date/Time: 02/28/24 12:05 Print Language: Czech
[2024-02-28 12:04] VITALS: BP 131/70; PULSE 100; RESP 18; TEMP 36.3; O2SAT 93
--- OUTSIDE RECORDS SUMMARY | 2024-03-04 08:55 | XMS_ITS | Patient Health Record ---
Author Organization Ashish Huertas III, MD Address [address] [place] [facility] [place] [address] Care Team Providers Care [place] Name Role Phone Ashish Huertas Primary Care Provider ALLERGIES Allergen (clinical drug ingredient) Drug/Non Drug Allergy documented on EMR Reaction Allergy Type Onset Date Status doxycycline Doxycycline Unknown Drug Allergy Act henrry RESULTS Component Value Reference Range Notes Complete Blood Count Auto Di ff Reviewed date:07/02/2023 02:52:20 PM Interpretation: Performing Lab:[facility], [address] [place] [address] Notes/Report: White Blood Count 3.7 4.8-10.8 X10*3/uL [...] Panel Reviewed date:07/02/2023 02:52:20 PM Interpretation: Performing Lab:[address] [address] Notes/Report: Sodium 137 135-145 mmol/L Potassium 4.8 3.3-5.1 mmol/L Chloride 103 96-108 mmol/L Carbon Dioxide 25 22-29 mmol/L Anion Gap 14 12-20 Blood Urea Nitrogen 4 9-16 mg/dL Creatinine 0.77 0.5-1.4 mg/dL Estimated Glomerular Filt Rate > 60 NOTE: For -[place] individuals, multiply the result by 1.210. Chronic [...] Acid Reviewed date:07/02/2023 02:52:20 PM Interpretation: Performing Lab:[address] [address] Notes/Report: Uric Acid 4.9 3.4-7.0 mg/dL Lipid Panel Reviewed date:07/02/2023 02:52:20 PM Interpretation: Performing Lab:[address] [address] Notes/Report: Triglycerides 81 Desirable Triglyceride: less than [...] Antigen Reviewed date:07/02/2023 02:52:20 PM Interpretation: Performing Lab:[address] [address] Notes/Report: Prostate Specific Antigen 0.64 <0.05-4.0 ng/mL PSA methodology: [place] Alinity i Chemiluminescent Microparticle Immunoassay (CMIA) Vitamin D 25-OH Total Reviewed date:07/02/2023 02:52:20 PM Interpretation: Performing Lab:[address] [address] Notes/Report: Vitamin D 25-OH Total 38.0 >30 [...] Culture Reviewed date:07/06/2023 05:50:09 PM Interpretation: Performing Lab:[address] [address] Notes/Report: Ear Culture Report - external Ear Culture 2+ Mixed skin wesley O:STAAUR Staphylococcus aureus Ear Culture Quant Ear Culture 2+ Clindamycin <=0.25 Erythromycin <=0.25 Levofloxacin 0.25 Oxacillin <=0.25 Penicillin-G >=0.5 Tetracycline <=1 Trimethoprim/Sulfamethox azole <=10 Gram stain Reviewed date:07/06/2023 05:50:09 PM Interpretation: Performing Lab:[facility], [address] [place] [phone] Notes/Report: Gram stain Gram stain results: Gram stain No polys Gram stain 1+ epithelial cells Gram stain 2+ Gram-positive cocci US KAI complete Reviewed date:09/24/2023 05:55:12 PM Interpretation: Performing Lab: Notes/Report: [address] [address] Ultrasound Report Signed Patient: Sid Landeros MR#: [id number] : 1960 Acct:[id number] Age/Sex: 62 / M ADM Date: 09/07/23 Loc: HO.US Attending Dr: Jhony Orr MD Ordering Physician: Jhony Orr MD Date of Service: 09/07/23 Procedure(s): US KAI complete Accession Number(s): [id number] cc: Ashish Huertas MD; Jhony Orr MD [...] the prior exam. 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 There is interval occlusion [...] in OV> 09/14/23 0935 DD/ 1530 TD/TT: Video Game Script Writer: US carotid duplex BI Reviewed date:09/24/2023 05:55:12 PM Interpretation: Performing Lab: Notes/Report: [address] [address] Ultrasound Report Signed Patient: Sid Landeros MR#: [id number] : 1960 Acct:[id number] Age/Sex: 62 / M ADM Date: 09/07/23 Loc: HO.US Attending Dr: Jhony Orr MD Ordering Physician: Carlos A Fletcher MD Date of Service: 09/07/23 Procedure(s): US carotid duplex BI Accession Number(s): [id number] cc: Ashish Huertas MD; Carlos A Fletcher [...] in OV> 09/08/23 1037 DD/ 1408 TD/TT: Video Game Script Writer: DYANA US arterial duplex LE BI Reviewed date:09/24/2023 05:55:12 PM Interpretation: Performing Lab: Notes/Report: [address] [address] Ultrasound Report Signed Patient: Sid Landeros MR#: [id number] : 1960 Acct:[id number] Age/Sex: 62 / M ADM Date: 09/07/23 Loc: HO.US Attending Dr: Jhony Orr MD Ordering Physician: Jhony Orr MD Date of Service: 09/07/23 Procedure(s): US arterial duplex LE BI Accession Number(s): [id number] cc: Ashish Huertas MD; Jhony Orr MD [...] the prior exam. 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 There is interval occlusion [...] in OV> 09/14/23 0935 DD/ 1530 TD/TT: Video Game Script Writer: US abdominal aortic aneurysm Reviewed date:09/24/2023 05:55:12 PM Interpretation: Performing Lab: Notes/Report: [address] [address] Ultrasound Report Signed Patient: Sid Landeros MR#: [id number] : 1960 Acct:[id number] Age/Sex: 62 / M ADM Date: 09/07/23 Loc: HO. Attending Dr: Jhony Orr MD Ordering Physician: Jhony Orr MD Date of Service: 09/07/23 Procedure(s): US abdominal aortic aneurysm Accession Number(s): [id number] cc: Ashish Huertas MD; Jhony Orr MD [...] the prior exam. 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 There is interval occlusion [...] MD in OV> 09/14/2335 DD/ 1530 TD/TT: Video Game Script Writer: URINE DIP STICK Reviewed date:09/23/2023 09:45:16 AM [...] POC Reviewed date:10/12/2023 08:41:12 AM Interpretation: Performing Lab:[facility], [address] [place] [address] Notes/Report: [id number] .63 >60 1131 HO.BERCHB Creatinine POC 0.6 0.5-1.4 mg/dL GFR POC > 60 Chronic Kidney Disease: Estimated GFR < 60 mL/min/1.73m2 Severe Kidney Disease: Estimated GFR < 15 mL/min/1.73m2 CT angio abd aorta runoff Reviewed date:10/07/2023 04:23:32 PM Interpretation: Performing Lab: Notes/Report: [address] [address] [address] Scan Report Signed Patient: Sid Landeros MR#: [id number] : 1960 Acct:[id number] Age/Sex: 62 / M ADM Date: 10/07/23 Loc: HO.CT Attending Dr: Jhony Orr MD Ordering Physician: Jhony Orr MD Date of Service: 10/07/23 Procedure(s): CT angio abd aorta runoff Accession Number(s): [id number] cc: Ashish Huertas MD; Jhony Orr MD [...] from the initial data set by the [facility] under concurrent physician supervision. [...] distal external iliac artery with an occluded skagway SFA and femoral-popliteal bypass graft. The popliteal is reconstituted just above the knee joint with two-vessel runoff via the anterior tibial and peroneal arteries. 4. Incidental nonvascular findings as described above including cholelithiasis, sigmoid diverticulosis and BPH. Dictated By: Hardeep Villeda MD Signed By: <Electronically signed by Hardeep Villeda MD in OV> 10/07/23 1314 DD/ 1203 TD/TT: Video Game Script Writer: DYANA Complete Blood Count Auto Di ff Reviewed date:10/25/2023 08:17:39 AM Interpretation: Performing Lab:[facility], [address] [place] [address] Notes/Report: White Blood Count 3.4 4.8-10.8 X10*3/uL [...] Nitrogen Reviewed date:10/25/2023 08:17:39 AM Interpretation: Performing Lab:[facility], [address] [place] [address] Notes/Report: Blood Urea Nitrogen 4 9-16 mg/dL Creatinine Reviewed date:10/25/2023 08:17:39 AM Interpretation: Performing Lab:[facility], [address] [place] [address] Notes/Report: Creatinine 0.72 0.5-1.4 mg/dL Creatinine Clr Calc Pharmacy 111.2 eGFR (calculated from the MDRD study equation) and eCrCl (calculated from the Cockcroft-Gault equation) are based on different parameters and may not yield comparable results. If eCrCl result is absurd, please check patient's height/weight. Estimated Glomerular Filt Rate > 60 NOTE: For -[place] individuals, multiply the result by 1.210. Chronic Kidney Disease: Estimated GFR < 60 mL/min/1.73m2 Severe Kidney Disease: Estimated GFR < 15 mL/min/1.73m2 Complete Blood Count no Diff Reviewed date:11/01/2023 08:04:51 AM Interpretation: Performing Lab:[facility], [address] [place] [address] Notes/Report: White Blood Count 3.6 4.8-10.8 X10*3/uL [...] INR Reviewed date:11/01/2023 08:04:51 AM Interpretation: Performing Lab:[facility], [address] [place] [address] Notes/Report: Prothrombin Time 11.6 11.1-13.3 SEC INTERNATIONAL [...] Time Reviewed date:11/01/2023 08:04:51 AM Interpretation: Performing Lab:[facility], [address] [place] [address] Notes/Report: Partial Thromboplastin Time 30.0 26.0-36.8 SEC For information regarding the monitoring of direct thrombin inhibitors, please refer to Pharmacy. Basic Metabolic Panel Reviewed date:11/01/2023 08:04:51 AM Interpretation: Performing Lab:[facility], [address] [place] [phone] Notes/Report: Sodium 134 135-145 mmol/L Potassium 4.1 [...] Glomerular Filt Rate > 60 NOTE: For -[place] individuals, multiply the result by 1.210. Chronic Kidney Disease: Estimated GFR < 60 mL/min/1.73m2 Severe Kidney Disease: Estimated GFR < 15 mL/min/1.73m2 Glucose Random 102 60-115 mg/dL Calcium 9.9 8.4-10.2 mg/dL Type and Screen Reviewed date:11/01/2023 08:04:51 AM Interpretation: Performing Lab:[facility], [address] [place] [phone] Notes/Report: witnessed by [facility]: Call Blood Bank (ext. [phone]) to band patient on admission. Type and Screen in effect until 2300 on 11-02-2023 Blood Type AP Antibody Screen NEGATIVE Complete Blood Count no Diff Reviewed date:11/02/2023 04:00:19 PM Interpretation: Performing Lab:[address] [address] Notes/Report: White Blood Count 3.8 4.8-10.8 X10*3/uL [...] INR Reviewed date:11/02/2023 04:00:19 PM Interpretation: Performing Lab:[address] [address] Notes/Report: Prothrombin Time 12.0 11.1-13.3 SEC INTERNATIONAL [...] Time Reviewed date:11/02/2023 04:00:19 PM Interpretation: Performing Lab:[address] [address] Notes/Report: Partial Thromboplastin Time 29.8 26.0-36.8 SEC For information regarding the monitoring of direct thrombin inhibitors, please refer to Pharmacy. Basic Metabolic Panel Reviewed date:11/02/2023 04:00:19 PM Interpretation: Performing Lab:[address] [address] Notes/Report: Sodium 136 135-145 mmol/L Potassium 4.3 [...] Glomerular Filt Rate > 60 NOTE: For -[place] individuals, multiply the result by 1.210. Chronic Kidney Disease: Estimated GFR < 60 mL/min/1.73m2 Severe Kidney Disease: Estimated GFR < 15 mL/min/1.73m2 Glucose Random 104 60-115 mg/dL Calcium 9.9 8.4-10.2 mg/dL Pathology Reviewed date:11/06/2023 09:57:22 AM Interpretation: Performing Lab:[facility], [address] [place] [address] Notes/Report: COVID-19 ID NOW ([place]) Reviewed date:11/02/2023 04:00:19 PM Interpretation: Performing Lab:[facility], [address] [place] [address] Notes/Report: IDNOW Serial# [id number] COVID-19 Test Negative Negative COVID-19 Note See [...] with other viruses. Testing facilities within the [facility] and its territories are required to [...] by authorized laboratories. Testing performed on the ENDOTRONIX ID NOW utilizing NAAT. [place] guidance in [place] Reviewed date:11/13/2023 08:46:13 AM Interpretation: Performing Lab: Notes/Report: [address] [address] Fluoroscopy Report Signed Patient: Sid Landeros MR#: [id number] : 1960 Acct:[id number] Age/Sex: 62 / M ADM Date: 11/02/23 Loc: .ICU 262-[address]: Jhony Orr MD Ordering Physician: Jhony Orr MD Date of Service: 11/02/23 Procedure(s): FL guidance in OR Accession Number(s): [id number] cc: Ashish Huertas MD; Jhony Orr MD [...] in OV> 11/11/23 0740 DD/ 1310 TD/TT: Video Game Script Writer: Complete Blood Count Auto Di ff Reviewed date:11/06/2023 09:57:22 AM Interpretation: Performing Lab:[facility], [address] [place] [phone] Notes/Report: White Blood Count 6.7 4.8-10.8 X10*3/uL [...] Panel Reviewed date:11/06/2023 09:57:22 AM Interpretation: Performing Lab:[facility], [address] [place] [address] Notes/Report: Sodium 134 135-145 mmol/L Potassium 3.6 [...] Glomerular Filt Rate > 60 NOTE: For -[place] individuals, multiply the result by 1.210. Chronic Kidney Disease: Estimated GFR < 60 mL/min/1.73m2 Severe Kidney Disease: Estimated GFR < 15 mL/min/1.73m2 Glucose Random 123 60-115 mg/dL Calcium 9.1 8.4-10.2 mg/dL Phosphorus Reviewed date:11/06/2023 09:57:22 AM Interpretation: Performing Lab:[facility], [address] [place] [phone] Notes/Report: Phosphorus 3.4 2.7-4.5 mg/dL Magnesium Reviewed date:11/06/2023 09:57:22 AM Interpretation: Performing Lab:[facility], [address] [place] [address] Notes/Report: Magnesium 1.8 1.6-2.6 mg/dL Albumin Level Reviewed date:11/06/2023 09:57:22 AM Interpretation: Performing Lab:[facility], [address] [place] [phone] Notes/Report: Albumin Level 4.0 3.5-5.0 g/dL XR lumbar spine 4V min Reviewed date:01/31/2024 02:54:18 PM Interpretation: Performing Lab: Notes/Report: [address] [place] [address] XRay Report Signed Patient: Sid Landeros MR#: [id number] : 1960 Acct:[id number] Age/Sex: 63 / M ADM Date: 11/27/23 Loc: URBANO Attending Dr: Ashish Huertas MD Ordering Physician: Ashish Huertas MD Date of Service: 11/30/23 Procedure(s): XR lumbar spine 4V min Accession Number(s): [id number] cc: Ashish Huertas MD EXAMINATION: XR THORACIC SPINE XR LUMBAR SPINE CLINICAL INFORMATION: Back pain. COMPARISON: 07/08/2019 and 09/18/2015 TECHNIQUE: AP, lateral and swimmer's views of the thoracic spine were obtained. AP, lateral and bilateral oblique views of the lumbar spine were obtained. FINDINGS: Thoracic spine: There are 12 rib-bearing thoracic vertebral bodies. Normal sagittal alignment. Vertebral body heights are maintained. Multilevel ventral osteophytes. Pedicles are intact. Lumbar spine: There are 5 nonrib-bearing lumbar vertebral bodies. Minimal retrolisthesis of L2 on L3 unchanged from prior. Vertebral body heights are maintained. Intervertebral disc spaces are preserved. Facet hypertrophy at L3-L4, L4-L5 and L5-S1. Sclerotic changes of the sacroiliac joints. Atherosclerotic changes of the abdominal aorta. XR/XR lumbar spine 4V min IMPRESSION: No acute abnormality. Dictated By: Orestes Lennon MD Signed By: <Electronically signed by Orestes Lennon MD in OV> 11/30/23 1132 DD/ 0945 TD/TT: Video Game Script Writer: XR thoracic spine 2V Reviewed date:01/31/2024 02:54:18 PM Interpretation: Performing Lab: Notes/Report: [address] [address] XRay Report Signed Patient: Sid Landeros MR#: [id number] : 1960 Acct:[id number] Age/Sex: 63 / M ADM Date: 11/27/23 Loc: HO.XRAY Attending Dr: Ashish Huertas MD Ordering Physician: Ashish Huertas MD Date of Service: 11/30/23 Procedure(s): XR thoracic spine 2V Accession Number(s): [id number] cc: Ashish Huertas MD EXAMINATION: XR THORACIC SPINE XR LUMBAR SPINE CLINICAL INFORMATION: Back pain. COMPARISON: 07/08/2019 and 09/18/2015 TECHNIQUE: AP, lateral and swimmer's views of the thoracic spine were obtained. AP, lateral and bilateral oblique views of the lumbar spine were obtained. FINDINGS: Thoracic spine: There are 12 rib-bearing thoracic vertebral bodies. Normal sagittal alignment. Vertebral body heights are maintained. Multilevel ventral osteophytes. Pedicles are intact. Lumbar spine: There are 5 nonrib-bearing lumbar vertebral bodies. Minimal retrolisthesis of L2 on L3 unchanged from prior. Vertebral body heights are maintained. Intervertebral disc spaces are preserved. Facet hypertrophy at L3-L4, L4-L5 and L5-S1. Sclerotic changes of the sacroiliac joints. Atherosclerotic changes of the abdominal aorta. XR/XR thoracic spine 2V IMPRESSION: No acute abnormality. Dictated By: Orestes Lennon MD Signed By: <Electronically signed by Orestes Lennon MD in OV> 11/30/23 1132 DD/ 0945 TD/TT: Video Game Script Writer: KAI complete Reviewed date:02/20/2024 04:43:15 AM Interpretation: Performing Lab: Notes/Report: [address] [address] Ultrasound Report Signed Patient: Sid Landeros MR#: [id number] : 1960 Acct:[id number] Age/Sex: 63 / M ADM Date: 02/15/24 Loc: HO.US Attending Dr: Jhony Orr MD Ordering Physician: Jhony Orr MD Date of Service: 02/15/24 Procedure(s): US KAI complete Accession Number(s): [id number] cc: Ashish Huertas MD; Jhony Orr MD EXAMINATION: Noninvasive assessment of the bilateral lower extremities with ARTERIAL DUPLEX and ANKLE BRACHIAL INDICES (ABIs). CLINICAL INFORMATION: Peripheral vascular disease with left femoropopliteal bypass graft TECHNIQUE: Duplex Doppler techniques with waveform analysis and measurement of velocities in the bilateral common femoral, profunda femoris, superficial femoral, popliteal and tibial arteries were performed. Additionally, ankle pulse volume recordings, ankle pressure measurements and ankle brachial indices were obtained of the lower extremity arterial system bilaterally. The study was performed only at rest. COMPARISON: 09/07/2023 and 11/11/2022 FINDINGS: DIRECT DUPLEX DOPPLER FINDINGS: RIGHT LEG: Common femoral artery: 155 cm/s, phasicity: Triphasic Profunda femoris artery: 101 cm/s, phasicity: Biphasic Superficial femoral artery (proximal): 62.6 cm/s, phasicity: Biphasic Superficial femoral artery (mid): 32.4 cm/s, phasicity: Biphasic Superficial femoral artery (distal): 18 cm/s, phasicity: Monophasic Popliteal artery: 14.6 cm/s, phasicity: Monophasic Posterior tibial artery: 25.5 cm/s, phasicity: Monophasic Peroneal artery: 19 cm/s, phasicity: Monophasic Anterior tibial artery: 58.7 cm/s, phasicity: Biphasic Dorsalis pedis artery: Occluded LEFT LEG: Common femoral artery: 115 cm/s, phasicity: Triphasic Profunda femoris artery: 83 cm/s, phasicity: Biphasic Femoropopliteal bypass graft, anastomosis: 228 cm/s, phasicity: Biphasic Femoropopliteal bypass graft (proximal): 102 cm/s, phasicity: Triphasic Femoropopliteal bypass graft (mid): 97 cm/s, phasicity: Triphasic Femoropopliteal bypass graft (distal): 85 cm/s, phasicity: Triphasic Femoropopliteal bypass graft, anastomosis: 98.3 cm/s, phasicity: triphasic Popliteal artery: 59 cm/s, phasicity: Triphasic Posterior tibial artery: 21.9 cm/s, phasicity: Biphasic Peroneal artery: 100 cm/s, phasicity: Triphasic Anterior tibial artery: 26.8 cm/s, phasicity: Biphasic Dorsalis pedis artery: 32.7 cm/s, phasicity: Biphasic ANKLE-BRACHIAL INDEX: Right: 0.7, previously 0.87? Left: 1.06, previously 0.74 ANKLE PRESSURES: Right: PT 88, DP 108 Left: PT?164, DP?160 ANKLE PVR WAVEFORMS: Right: Abnormal Left: Normal US/US KAI complete IMPRESSION: Right leg: Moderately decreased ankle brachial index. Dampened waveforms and decrease velocities within the distal superficial femoral artery through the below-knee runoff vessels consistent with none visualized stenoses/occlusion Left leg: Normal ankle brachial index and arterial waveforms. Widely patent femoropopliteal bypass graft KAI Reference: - >1.4 = calcified vessels - 0.9 - 1.4 = normal - no significant arterial disease - 0.7 - 0.89 = mild peripheral arterial disease - 0.51 - 0.69 = moderate peripheral arterial disease - ? 0.50 = severe peripheral arterial disease - < .30 = critical arterial disease Dictated By: Stanislav Roblero MD Signed By: <Electronically signed by Stanislav Roblero MD in OV> 02/17/24 1435 DD/ 0928 TD/TT: Video Game Script Writer: US arterial duplex LE BI Reviewed date:02/20/2024 04:43:15 AM Interpretation: Performing Lab: Notes/Report: [address] [address] Ultrasound Report Signed Patient: Sid Landeros MR#: [id number] : 1960 Acct:[id number] Age/Sex: 63 / M ADM Date: 02/15/24 Loc: . Attending Dr: Jhony Orr MD Ordering Physician: Jhony Orr MD Date of Service: 02/15/24 Procedure(s): US arterial duplex LE BI Accession Number(s): [id number] cc: Ashish Huertas MD; Jhony Orr MD EXAMINATION: Noninvasive assessment of the bilateral lower extremities with ARTERIAL DUPLEX and ANKLE BRACHIAL INDICES (ABIs). CLINICAL INFORMATION: Peripheral vascular disease with left femoropopliteal bypass graft TECHNIQUE: Duplex Doppler techniques with waveform analysis and measurement of velocities in the bilateral common femoral, profunda femoris, superficial femoral, popliteal and tibial arteries were performed. Additionally, ankle pulse volume recordings, ankle pressure measurements and ankle brachial indices were obtained of the lower extremity arterial system bilaterally. The study was performed only at rest. COMPARISON: 09/07/2023 and 11/11/2022 FINDINGS: DIRECT DUPLEX DOPPLER FINDINGS: RIGHT LEG: Common femoral artery: 155 cm/s, phasicity: Triphasic Profunda femoris artery: 101 cm/s, phasicity: Biphasic Superficial femoral artery (proximal): 62.6 cm/s, phasicity: Biphasic Superficial femoral artery (mid): 32.4 cm/s, phasicity: Biphasic Superficial femoral artery (distal): 18 cm/s, phasicity: Monophasic Popliteal artery: 14.6 cm/s, phasicity: Monophasic Posterior tibial artery: 25.5 cm/s, phasicity: Monophasic Peroneal artery: 19 cm/s, phasicity: Monophasic Anterior tibial artery: 58.7 cm/s, phasicity: Biphasic Dorsalis pedis artery: Occluded LEFT LEG: Common femoral artery: 115 cm/s, phasicity: Triphasic Profunda femoris artery: 83 cm/s, phasicity: Biphasic Femoropopliteal bypass graft, anastomosis: 228 cm/s, phasicity: Biphasic Femoropopliteal bypass graft (proximal): 102 cm/s, phasicity: Triphasic Femoropopliteal bypass graft (mid): 97 cm/s, phasicity: Triphasic Femoropopliteal bypass graft (distal): 85 cm/s, phasicity: Triphasic Femoropopliteal bypass graft, anastomosis: 98.3 cm/s, phasicity: triphasic Popliteal artery: 59 cm/s, phasicity: Triphasic Posterior tibial artery: 21.9 cm/s, phasicity: Biphasic Peroneal artery: 100 cm/s, phasicity: Triphasic Anterior tibial artery: 26.8 cm/s, phasicity: Biphasic Dorsalis pedis artery: 32.7 cm/s, phasicity: Biphasic ANKLE-BRACHIAL INDEX: Right: 0.7, previously 0.87? Left: 1.06, previously 0.74 ANKLE PRESSURES: Right: PT 88, DP 108 Left: PT?164, DP?160 ANKLE PVR WAVEFORMS: Right: Abnormal Left: Normal US/US arterial duplex LE BI IMPRESSION: Right leg: Moderately decreased ankle brachial index. Dampened waveforms and decrease velocities within the distal superficial femoral artery through the below-knee runoff vessels consistent with none visualized stenoses/occlusion Left leg: Normal ankle brachial index and arterial waveforms. Widely patent femoropopliteal bypass graft KAI Reference: - >1.4 = calcified vessels - 0.9 - 1.4 = normal - no significant arterial disease - 0.7 - 0.89 = mild peripheral arterial disease - 0.51 - 0.69 = moderate peripheral arterial disease - ? 0.50 = severe peripheral arterial disease - < .30 = critical arterial disease Dictated By: Stanislav Roblero MD Signed By: <Electronically signed by Stanislav Roblero MD in OV> 02/17/24 1435 DD/ 0915 TD/TT: Video Game Script Writer: Complete Blood Count Auto Di ff (Not yet reviewed by provider) Interpretation: Performing Lab:[facility], [address] [place] [phone] Notes/Report: White Blood Count 6.6 4.8-10.8 X10*3/uL Red Blood Count 4.35 4.60-5.80 X10*6/uL Hemoglobin 12.8 14.0-18.0 g/dl Hematocrit 36.5 42.0-52.0 % Mean Corpuscular Volume 83.9 80.0-98.0 fL Mean Corpuscular Hemoglobin 29.4 27.0-33.0 pg Mean Corpuscular HGB Conc 35.1 31.0-36.0 g/dl Red Cell Distribution Width 14.2 11.0-16.0 % Platelet Count 241 160-400 X10*3/uL Mean Platelet Volume 8.7 9.4-12.4 fL Neutrophils Percent Auto 68.8 45-73 % Imm Gran Pct Auto 0.8 0.0-0.4 % Lymphocytes Percent Auto 17.9 20-40 % Monocytes Percent Auto 12.2 2-11 % Eosinophils Percent Auto 0.0 0-4 % Basophils Percent Auto 0.3 0-2 % NRBC Pct Auto 0.0 0.0-0.2 /100WBC Neutrophils Absolute Auto 4.5 2.0-8.3 x10*3/uL Imm Gran Abs Auto 0.05 0.00-0.03 X10*3/uL Lymphocytes Absolute Auto 1.2 1.2-4.9 X10*3/uL Monocytes Absolute Auto 0.8 0.1-1.2 X10*3/uL Eosinophils Absolute Auto 0.0 0.0-0.4 X10*3/uL Basophils Absolute Auto 0.0 0.0-0.2 X10*3/uL NRBC Abs Auto 0.000 0.0-0.012 X10*3/uL Comprehensive Met. Panel (No t yet reviewed by provider) Interpretation: Performing Lab:[facility], [address] [place] [phone] Notes/Report: Sodium 132 135-145 mmol/L Potassium 3.8 3.3-5.1 mmol/L Chloride 100 96-108 mmol/L Carbon Dioxide 22 22-29 mmol/L Anion Gap 14 12-20 Blood Urea Nitrogen < 3 9-16 mg/dL Creatinine 0.71 0.5-1.4 mg/dL Creatinine Clr Calc Pharmacy 111.3 eGFR (calculated from the MDRD study equation) and eCrCl (calculated from the Cockcroft-Gault equation) are based on different parameters and may not yield comparable results. If eCrCl result is absurd, please check patient's height/weight. Estimated Glomerular Filt Rate > 60 NOTE: For -[place] individuals, multiply the result by 1.210. Chronic Kidney Disease: Estimated GFR < 60 mL/min/1.73m2 Severe Kidney Disease: Estimated GFR < 15 mL/min/1.73m2 Glucose Random 104 60-115 mg/dL Calcium 10.0 8.4-10.2 mg/dL Bilirubin Total 0.4 0.0-1.0 mg/dL Aspartate Amino Transferase 51 5-37 U/L Alanine Aminotransferase 53 0-40 U/L Total Protein 7.9 6.5-8.0 g/dL Albumin Level 4.2 3.5-5.0 g/dL Alkaline Phosphatase 119 39-117 U/L COVID-19 ID NOW ([place]) (No t yet reviewed by provider) Interpretation: Performing Lab:[facility], [address] [place] [id number] Notes/Report: IDNOW Serial# [id number] COVID-19 Test Negative Negative COVID-19 Note See [...] with other viruses. Testing facilities within the [facility] and its territories are required to [...] by authorized laboratories. Testing performed on the [place] ID NOW utilizing NAAT. Influenza A B2 ID NOW (Abbot t) (Not yet reviewed by provider) Interpretation: Performing Lab:[facility], [address] [place] [id number] Notes/Report: IDNOW Serial# [id number] Influenza A Negative Negative Influenza B2 Negative Negative Influenza A B2 Note See Note The [place] ID NOW Influenza A B2 test is used for the qualitative detection of influenza A and B from patients with signs and symptoms of respiratory infection. Negative results do not preclude influenza virus infection and should not be used as the sole basis for diagnosis, treatment or other patient management decisions. There is a risk of false negative results due to the presence of variants in the viral targets of the assay, low levels of virus in the specimen and co-infection with Respiratory Syncytial Virus. XR chest 2V (Not yet reviewe d by provider) Interpretation: Performing Lab: Notes/Report: [address] [address] XRay Report Signed Patient: Sid Landeros MR#: [id number] : 1960 Acct:[id number] Age/Sex: 63 / M ADM Date: 02/28/24 Loc: .ED Attending Dr: Ordering Physician: Generic ED Physician Date of Service: 02/28/24 Procedure(s): XR chest 2V Accession Number(s): [id number] cc: Ashish Huertas MD; Generic ED Physician EXAMINATION: XR CHEST CLINICAL INFORMATION: Shortness of breath COMPARISON: None available. TECHNIQUE: 2 views of the chest were obtained. FINDINGS: No significant abnormality is noted involving the heart, lungs, mediastinum, bony thorax or soft tissues. Degenerative changes of the thoracic spine. XR/XR chest 2V IMPRESSION: No evidence for acute disease in the chest. 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 REASON FOR REFERRAL Reason low back pain left leg numbness eval and treatment Diagnosis 1 Numbness (R20.0) Diagnosis 2 Left low back pain, unspecified chronicity, unspecified whether sciatica present (M54.50) Referral Organization Ashish Huertas III, MD Referring Provider First Name Ashish Referring Provider Last Name Aleksandar Referring Provider Speciality Internal M edicine [facility] Specialty Physical Med icine General Notes Liat Pinon CMA 10/2023 03:12:36 PM EST > ref/demo/progress note faxed to [facility] asking them to call patient with appt information , Liat Pinon CMA 09/30/2023 11:13:22 AM EST > called [facility] they stated they do have referral but have not contacted pt as of yet, ZiLiat GUILHERME 10/05/2023 01:55:33 PM EST > I called [facility] they stated pt has appt with Dr Delgado on 10/07/2023 at 9:30am Referral Priority Routine Referral Appointment Date 10/07/2023 Reason Consult and Treat Pain to right of lumbar spine Left Shoulder is higher Diagnosis 1 Thoracic back pain ( M54.6) Diagnosis 2 Lumbar back pain (M5 4.50) Diagnosis 3 Shoulder pain, left (M25.512) Referral Organization Ashish Huertas III, MD Referring Provider First Name Ashish Referring Provider Last Name Aleksandar Referring Provider Speciality Internal M edicine Referred Provider [facility] [place] Referred Provider Specialty Physical Med [facility] General Notes Sharon Dickinson 2023 10:21:00 AM EST > Faxed with Xrays, referral and progress note Referral Priority Routine Referral Appointment Date 12/21/2023 MEDICATIONS Medication SIG (Take, Route, Frequency, Duration) Notes Start Date End Date Status Ipratropium-Albuterol 20-100 MCG/ACT 1 puff as needed Inhalation every 6 hrs Active Budesonide-Formoterol Fumarate 160-4.5 MCG/ACT 1 puff as needed Inhalation every 4 hrs Active dexAMETHasone 2 MG 1 tablet Orally ever y 12 hrs 12/22/2022 Active Symbicort 160-4.5 MCG/ACT 2 puffs Inhala tion Twice a day Active Ibuprofen 800 MG Oral Act henrry Amoxicillin-Pot Clavulanate 875-125 MG 1 tablet Orally every 12 hrs for 7 days 02/26/2024 03/04/2024 Active Rosuvastatin Calcium 20 MG 1 tablet Oral ly Once a day Active Pregabalin 50 MG 1 capsule Orally Onc e a day 12/14/2023 Active traZODone HCl 100 MG 1 tablet at bedtime Orally Once a day 09/01/2023 Active Mupirocin 2 % 1 application [employer] 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 ally Twice a day 11/20/2023 Active Pantoprazole Sodium 40 MG as directed Or ally Once a day Active Sildenafil Citrate 100 MG 1 tablet Orall y Once a day 05/15/2023 Active amLODIPine Besylate 10 MG as directed Or ally Once a day Active Combivent Respimat 20-100 MCG/ACT 1 puff as needed Inhalation every 6 hrs Active traMADol HCl 50 MG 1 tablet Orally ever y 6 hours prn back pain 12/23/2022 Active Varenicline Tartrate (Starter) 0.5 MG X 11 & 1 MG X 42 as directed Orally as directed 01/30/2023 Active Sulfamethoxazole-Trimethop rim 800-160 MG 1 tablet Orally twice a day 02/09/2024 Active IMMUNIZATIONS Vaccine Route Administration Date Status [...] W/U Status Risk SNOMED Code Notes Problem Overweight (E66.3) Active confirmed [id number] He is slightly overweight. I recommended stabilizing his weight at this level and consume a healthy diet. He is currently disabled and unable to exercise. Problem Hypertension (I10) Active confirmed Hypertension (54376229) His most recent blood pressure was 147/66. No change in his regimen was made. I encouraged him to pursue aggressive sodium restriction.He was given an appointment to come to the office and recheck his blood pressure. Problem Porphyria cutanea tarda (E80.1) Active confirmed [id number] The diagnosis of porphyria was made by a tooling engineer at [facility]. He affirms that if he goes into direct sunlight. He will experience blisters and skin lesions. He is well versed in how to prevent this and has medications for his skin. Problem BPH (benign prostatic hyperplasia) (N40.0) Active confirmed Benign prostatic hyperplasia (657625329) He rises from sleep once or twice a night to urinate. We have discussed lifestyle modification as a way to relieve nocturnal urinating. Problem Tobacco dependence (F17.200) Active confirmed 64433710 He continues t o smoke a package of cigarettes every day. We discussed the health consequences of this. His COPD has been stable and inactive recently. I made him aware of the smoking cessation programs and the local hospitals and this community. Problem COPD (chronic obstructive pulmonary disease) (J44.9) Active confirmed COPD - Chronic obstructive pulmonary disease (98340848) His breathing is currently unimpaired. He denies [...] etc. Problem Pilonidal cyst (L05.91) Active confirmed [id number] He had an excision and repair of this cyst years ago. It is healed and no longer bothers him. Problem Peripheral arterial disease (I73.9) Active confirmed 825883290 His claudicati on has improved. He recently underwent a revision of his left femoral-poplitea l bypass graft. The wound is now healed. He experiences some claudication in his right leg and is able to walk one block without stopping to rest. Problem Lumbar radiculopathy, right (M54.16) Active confirmed [id number] He continu es to have pain that comes from his lower lumbar spine and right paravertebral muscles that radiates into his right buttock. X-rays have shown degenerative disease. The pain is aggravated with walking more than 10 feet and lifting more than 10 pounds. He has been referred to [facility] medicine for physical therapy injections imaging and evaluation for surgery. Problem Acute diffuse otitis externa of both ears (H60.313) Active confirmed 76575227 He has had no further relief with new primary seen. An antibiotic was prescribed. VITAL SIGNS Heart Rate 85 /min 02/09/2024 Temperature 98.4 degrees Fahrenheit 02/09/2024 Blood pressure diastolic 66 mm Hg 02/09/2024 Height 70 in 02/19/2024 Blood pressure systolic 147 mm Hg 02/09/2024 Weight 178 lbs 02/19/2024 BMI 25.54 kg/m2 02/19/2024 Encounters Encounter Location Date Provider Diagnosis Ashish Huertas III, MD [address] [place] [address] [place] [address] 09/23/2023 Ashish Huertas Tobacco dependence F17.200 ; Left low back pain, unspecified chronicity, unspecified whether sciatica present M54.50 ; Leg numbness R20.0 ; Hypertension I10 and BPH (benign prostatic hyperplasia) N40.0 Ashish Huertas III, MD [address] [place] [address] [place] [address] 04/17/2023 Ashish Huertas III, MD [address] [place] [address] [place] [address] 05/20/2023 Ashish Huertas III, MD [address] [place] [address] [place] [address] 06/02/2023 Ashish Huertas III, MD [address] [place] [address] [place] [address] 07/03/2023 Ashish Huertas Lumbar radiculopathy , right M54.16 ; Ear pain, left H92.02 ; BPH (benign prostatic hyperplasia) N40.0 ; Peripheral arterial disease I73.9 ; Porphyria cutanea tarda E80.1 and Tobacco dependence F17.200 Ashish Huertas III, MD [address] [place] [address] [place] [address] 01/20/2024 Ashish Huertas Tobacco dependence F17.200 ; Peripheral arterial disease I73.9 ; Hypertension I10 ; Lumbar radiculopathy, right M54.16 ; BPH (benign prostatic hyperplasia) N40.0 and Porphyria cutanea tarda E80.1 Ashish Huertas III, MD [address] [place] [address] [place] [address] 11/17/2023 Ashish Huertas Tobacco dependence F17.200 ; COPD (chronic obstructive pulmonary disease) J44.9 ; Hypertension I10 ; Peripheral arterial disease I73.9 ; Acute diffuse otitis externa of both ears H60.313 ; Lumbar radiculopathy, right M54.16 and Porphyria cutanea tarda E80.1 Ashish Huertas III, MD [address] [place] [address] [place] [address] 11/27/2023 Ashish Huertas Tobacco dependence F17.200 ; Left low back pain, unspecified chronicity, unspecified whether sciatica present M54.50 ; Lumbar radiculopathy, right M54.16 ; Lumbar back pain M54.50 ; Hypertension I10 ; BPH (benign prostatic hyperplasia) N40.0 and Peripheral arterial disease I73.9 Ashish Huertas III, MD [address] [place] [address] [place] [address] 03/02/2024 Ashish Huertas III, MD [address] [place] [address] [place] [address] 02/09/2024 Ashish Huertas Tobacco dependence F17.200 ; Otitis of both ears H66.93 ; Peripheral arterial disease I73.9 ; BPH (benign prostatic hyperplasia) N40.0 ; Hypertension I10 and COPD (chronic obstructive pulmonary disease) J44.9 Ashish Huertas III, MD [address] [place] [address] [place] [address] 11/13/2023 Ashish Huertas III, MD [address] [place] [address] [place] [address] 03/10/2023 Ashish Huertas III, MD [address] [place] [address] [place] [address] 03/10/2023 Ashish Huertas III, MD [address] [place] [address] [place] [address] 03/17/2023 Ashish Huertas III, MD [address] [place] [address] [place] [address] 03/17/2023 Ashish Huertas III, MD [address] [place] [address] [place] [address] 05/15/2023 Ashish Huertas III, MD [address] [place] [address] [place] [address] 05/15/2023 Ashish Huertas III, MD [address] [place] [address] [place] [address] 07/01/2023 Ashish Huertas III, MD [address] [place] [address] 09/01/2023 Ashish Huertas III, MD [address] [place] [address] [place] [address] 09/01/2023 Ashish Huertas III, MD [address] [place] [address] [place] [address] 09/01/2023 Ashish Huertas III, MD [address] [place] [address] [place] [address] 09/08/2023 Ashish Huertas Tobacco dependence F17.200 Ashish Huertas III, MD [address] [place] [address] 10/14/2023 Ashish Huertas III, MD [address] [place] [address] [place] [address] 10/28/2023 Ashish Huertas III, MD [address] [place] [address] [place] [address] 12/14/2023 Ashish Huertas III, MD [address] [place] [address] [place] [address] 02/09/2024 Ashish Huertas III, MD [address] [place] [address] [place] [address] 02/19/2024 Ashish Huertas III, MD [address] [place] [address] [place] [address] 02/24/2024 Ashish Huertas III, MD [address] [place] [address] [place] [address] 02/26/2024 Ashish Huertas III, MD [address] [place] [address] [place] [address] 02/26/2024 Ashish Huertas III, MD [address] [place] [address] [place] [address] 07/16/2023 Ashish Huertas Tobacco dependence F17.200 ; Porphyria cutanea tarda E80.1 ; Peripheral arterial disease I73.9 ; BPH (benign prostatic hyperplasia) N40.0 ; Hypertension I10 ; Lumbar radiculopathy, right M54.16 and Acute diffuse otitis externa of both ears H60.313 Ashish Huertas III, MD [address] [place] [address] [place] [address] 10/21/2023 Ashish Huertas III, MD [address] [place] [address] [place] [address] 10/26/2023 Ashish Huertas Tobacco dependence F17.200 ; COPD (chronic obstructive pulmonary disease) J44.9 ; Hypertension I10 ; BPH (benign prostatic hyperplasia) N40.0 ; Peripheral arterial disease I73.9 ; Porphyria cutanea tarda E80.1 ; Lumbar radiculopathy, right M54.16 and Acute diffuse otitis externa of both ears H60.313 Ashish Huertas III, MD [address] [place] [address] [place] [address] 11/20/2023 Ashish Huertas Tobacco dependence F17.200 ; BPH (benign prostatic hyperplasia) N40.0 ; Hypertension I10 ; Peripheral arterial disease I73.9 ; Lumbar radiculopathy, right M54.16 ; Acute diffuse otitis externa of both ears H60.313 and Porphyria cutanea tarda E80.1 Ashish Huertas III, MD [address] [place] [address] [place] [address] 02/19/2024 Ashish Huertas Tobacco dependence F17.200 ; COPD (chronic obstructive pulmonary disease) J44.9 ; Peripheral arterial disease I73.9 ; Lumbar radiculopathy, right M54.16 ; Acute diffuse otitis externa of both ears H60.313 ; Porphyria cutanea tarda E80.1 ; Hypertension I10 and Overweight E66.3 ASSESSMENTS Encounter Date Diagnosis Assessment Notes Treatment [...] to undergo more x-rays at this time. 07/03/2023 Ear pain, left (ICD-10 - H92.02) There is a localized skin infection. Doxycycline was prescribed and a culture was done. 07/03/2023 Lumbar radiculopathy, right (ICD-10 - M54.16) This pain has now resolved. 01/20/2024 Tobacco dependence (ICD-10 - F17.200) He continues to smoke a package of cigarettes every day. We discussed the health consequences of this. His COPD has been stable and inactive recently. I made him aware of the smoking cessation programs and the local hospitals and this community. 01/20/2024 Peripheral arterial disease (ICD-10 - I73.9) His claudication has improved. He recently underwent a revision of his left femoral-popliteal bypass graft. The wound is now healed 11/17/2023 Tobacco dependence (ICD-10 - F17.200) He continues to smoke a package of cigarettes every day. We discussed the health consequences of this. His COPD has been stable and inactive recently. I made him aware of the smoking cessation programs and the local hospitals and this community. 11/17/2023 COPD (chronic obstructive pulmonary disease) (ICD-10 - [...] include lung cancer, COPD, oxygen dependence, etc. 11/27/2023 Tobacco dependence (ICD-10 - F17.200) He continues to smoke a package of cigarettes every day. We discussed the health consequences of this. His COPD has been stable and inactive recently. I made him aware of the smoking cessation programs and the local hospitals and this community. 11/27/2023 Left low back pain, unspecified chronicity, unspecified whether sciatica present (ICD-10 - M54.50) His pain is likely from his walking exercise, stating for the pain in the left surgical incision 02/09/2024 Tobacco dependence (ICD-10 - F17.200) He continues to smoke a package of cigarettes every day. We discussed the health consequences of this. His COPD has been stable and inactive recently. I made him aware of the smoking cessation programs and the local hospitals and this community. 02/09/2024 Otitis of both ears (ICD-10 - H66.93) A culture was done and he was given an antibiotic with a follow-up visit. 09/08/2023 Tobacco dependence (ICD-10 - F17.200) He has smoked a package of cigarettes per day for 40 years. He has known COPD. We discussed smoking cessation strategies. This current regimen was continued. 07/16/2023 Porphyria cutanea tarda (ICD-10 - E80.1) The diagnosis of porphyria was made by a tooling engineer at [facility]. He affirms that if he goes into [...] include lung cancer, COPD, oxygen dependence, etc. 11/20/2023 BPH (benign prostatic hyperplasia) (ICD-10 - N40.0) He rises from sleep once or twice a night to urinate. We have discussed lifestyle modification as a way to relieve nocturnal urinating. 11/20/2023 Tobacco dependence (ICD-10 - F17.200) He continues to smoke a package of cigarettes every day. We discussed the health consequences of this. His COPD has been stable and inactive recently. I made him aware of the smoking cessation programs and the local hospitals and this community. 02/19/2024 Tobacco dependence (ICD-10 - F17.200) He continues to smoke a package of cigarettes every day. We discussed the health consequences of this. His COPD has been stable and inactive recently. I made him aware of the smoking cessation programs and the local hospitals and this community. 02/19/2024 COPD (chronic obstructive pulmonary disease) (ICD-10 - [...] If it worsens. Images will be obtained. 07/03/2023 BPH (benign prostatic hyperplasia) (ICD-10 - N40.0) He rises from sleep once or twice a night to urinate. We continued our discussion on lifestyle modification is awake to reduce nocturnal awakening to urinate. 01/20/2024 Hypertension (ICD-10 - I10) His blood pressure has been stable at 132/80. No change in his regimen was made. I encouraged him to pursue aggressive sodium restriction. 11/17/2023 Hypertension (ICD-10 - I10) His blood pressure is currently stable at 132/80. No change in his regimen was made. I encouraged hiim to puursue aggressive sodium restriction. 11/27/2023 Lumbar radiculopathy, right (ICD-10 - M54.16) The pain he describes as right hip pain comes struuctures above the hip joint which is painless on range of motion. 02/09/2024 Peripheral arterial disease (ICD-10 - I73.9) His claudication has improved. He recently underwent a revision of his left femoral-popliteal bypass graft. The wound is now healed 07/16/2023 Peripheral arterial disease (ICD-10 - I73.9) He saw the vascular surgeon recently. No invasive procedures are planned. Surveillance will continue. He will be seeking again in June 2023. The left leg was pink and warm. 10/26/2023 Hypertension (ICD-10 - I10) His blood pressure is currently stable at 132/80. No change in his regimen was made. I encouraged ab to puursue aggressive sodium restriction. 11/20/2023 Hypertension (ICD-10 - I10) His blood pressure has been stable at 132/80. No change in his regimen was made. I encouraged him to pursue aggressive sodium restriction. 02/19/2024 Peripheral arterial disease (ICD-10 - I73.9) His claudication has improved. He recently underwent a revision of his left femoral-popliteal bypass graft. The wound is now healed. He experiences some claudication in his right leg and is able to walk one block without stopping to rest. 09/23/2023 Hypertension (ICD-10 - I10) His blood pressure is currently stable at 132/80. No change in his regimen was made. I encouraged ab to puursue aggressive sodium restriction. 07/03/2023 Peripheral arterial disease (ICD-10 - I73.9) He saw the vascular surgeon recently. No invasive procedures are planned. Surveillance will continue. He will be seeking again in June 2023. The left leg was pink and warm. 01/20/2024 Lumbar radiculopathy, right (ICD-10 - M54.16) The pain he describes as right hip pain comes struuctures above the hip joint which is painless on range of motion. 11/17/2023 Peripheral arterial disease (ICD-10 - I73.9) He has had a successful revision of the left femoral-popliteal byypass graft with reconstitution of adequate perfusion of the left leg. 11/27/2023 Lumbar back pain (ICD-10 - M54.50) This appears to be a muscular pain. He'll use heat and rest and ibuprofen and cut down on his small walking. 02/09/2024 BPH (benign prostatic hyperplasia) (ICD-10 - N40.0) He rises from sleep once or twice a night to urinate. We have discussed lifestyle modification as a way to relieve nocturnal urinating. 07/16/2023 BPH (benign prostatic hyperplasia) (ICD-10 - [...] as a way to relieve nocturnal urinating. 11/20/2023 Peripheral arterial disease (ICD-10 - I73.9) He has had a successful revision of the left femoral-popliteal byypass graft with reconstitution of adequate perfusion of the left leg. 02/19/2024 Lumbar radiculopathy, right (ICD-10 - M54.16) He continues to have pain that comes from his lower lumbar spine and right paravertebral muscles that radiates into his right buttock. X-rays have shown degenerative disease. The pain is aggravated with walking more than 10 feet and lifting more than 10 pounds. He has been referred to [facility] rehabilitation medicine for physical therapy injections imaging and evaluation for surgery. 09/23/2023 BPH (benign prostatic hyperplasia) (ICD-10 - N40.0) He rises from sleep once or twice a night to urinate. We have discussed lifestyle modification as a way to relieve nocturnal urinating. 07/03/2023 Porphyria cutanea tarda (ICD-10 - E80.1) The diagnosis of porphyria was made by a tooling engineer at [facility]. He affirms that if he goes into direct sunlight. He will experience blisters and skin lesions. He is well versed in how to prevent this and has medications for his skin. 01/20/2024 BPH (benign prostatic hyperplasia) (ICD-10 - N40.0) He rises from sleep once or twice a night to urinate. We have discussed lifestyle modification as a way to relieve nocturnal urinating. 11/17/2023 Acute diffuse otitis externa of both ears (ICD-10 - H60.313) He will finish the doxycycline and then resume normal activities. Infection is resolving. 11/27/2023 Hypertension (ICD-10 - I10) His blood pressure has been stable at 132/80. No change in his regimen was made. I encouraged him to pursue aggressive sodium restriction. 02/09/2024 Hypertension (ICD-10 - I10) His blood pressure has been stable at 132/80. No change in his regimen was made. I encouraged him to pursue aggressive sodium restriction. 07/16/2023 Hypertension (ICD-10 - I10) His blood [...] or angioplasty is unclear at the moment. 11/20/2023 Lumbar radiculopathy, right (ICD-10 - M54.16) This pain has now resolved. 02/19/2024 Acute diffuse otitis externa of both ears (ICD-10 - H60.313) He has had no further relief with new primary seen. An antibiotic was prescribed. 07/03/2023 Tobacco dependence (ICD-10 - F17.200) He has smoked a package of cigarettes per day for 40 years. He has known COPD. We discussed smoking cessation strategies. This current regimen was continued. 01/20/2024 Porphyria cutanea tarda (ICD-10 - E80.1) The diagnosis of porphyria was made by a tooling engineer at [facility]. He affirms that if he goes into direct sunlight. He will experience blisters and skin lesions. He is well versed in how to prevent this and has medications for his skin. 11/17/2023 Lumbar radiculopathy, right (ICD-10 - M54.16) This pain has now resolved. 11/27/2023 BPH (benign prostatic hyperplasia) (ICD-10 - N40.0) He rises from sleep once or twice a night to urinate. We have discussed lifestyle modification as a way to relieve nocturnal urinating. 02/09/2024 COPD (chronic obstructive pulmonary disease) (ICD-10 - [...] include lung cancer, COPD, oxygen dependence, etc. 07/16/2023 Lumbar radiculopathy, right (ICD-10 - M54.16) This pain has now resolved. 10/26/2023 Porphyria cutanea tarda (ICD-10 - E80.1) The diagnosis of porphyria was made by a tooling engineer at [facility]. He affirms that if he goes into direct sunlight. He will experience blisters and skin lesions. He is well versed in how to prevent this and has medications for his skin. 11/20/2023 Acute diffuse otitis externa of both ears (ICD-10 - H60.313) He has improved. He will use mupirocin. 02/19/2024 Porphyria cutanea tarda (ICD-10 - E80.1) The diagnosis of porphyria was made by a tooling engineer at [facility]. He affirms that if he goes into direct sunlight. He will experience blisters and skin lesions. He is well versed in how to prevent this and has medications for his skin. 11/17/2023 Porphyria cutanea tarda (ICD-10 - E80.1) The diagnosis of porphyria was made by a tooling engineer at [facility]. He affirms that if he goes into direct sunlight. He will experience blisters and skin lesions. He is well versed in how to prevent this and has medications for his skin. 11/27/2023 Peripheral arterial disease (ICD-10 - I73.9) He has had a successful revision of the left femoral-popliteal byypass graft with reconstitution of adequate perfusion of the left leg. 07/16/2023 Acute diffuse otitis externa of both ears (ICD-10 - H60.313) He will finish the doxycycline and then resume normal activities. Infection is resolving. 10/26/2023 Lumbar radiculopathy, right (ICD-10 - M54.16) This pain has now resolved. 11/20/2023 Porphyria cutanea tarda (ICD-10 - E80.1) The diagnosis of porphyria was made by a tooling engineer at [facility]. He affirms that if he goes into direct sunlight. He will experience blisters and skin lesions. He is well versed in how to prevent this and has medications for his skin. 02/19/2024 Hypertension (ICD-10 - I10) His most recent blood pressure was 147/66. No change in his regimen was made. I encouraged him to pursue aggressive sodium restriction.He was given an appointment to come to the office and recheck his blood pressure. 10/26/2023 Acute diffuse otitis externa of both ears (ICD-10 - H60.313) He will finish the doxycycline and then resume normal activities. Infection is resolving. 02/19/2024 Overweight (ICD-10 - E66.3) He is slightly overweight. I recommended stabilizing his weight at this level and consume a healthy diet. He is currently disabled and unable to exercise. PLAN OF TREATMENT Pending Test Test Name Order Date PROFILE, FASTING (COMPREHENSIVE METABOLI C) 01/15/2023 PROFILE, FASTING (COMPREHENSIVE METABOLI C) 09/15/2022 PROFILE, FASTING (COMPREHENSIVE METABOLI C) 09/23/2023 LIPID PANEL 01/15/2023 LIPID PANEL 09/15/2022 PSA, TOTAL 09/23/2023 PSA, TOTAL 01/15/2023 PSA, TOTAL 09/15/2022 CBC w DIFF 09/23/2023 CBC w DIFF 01/15/2023 CBC w DIFF 09/15/2022 XR LUMBAR SPINE 09/23/2023 VITAMIN D 25-OH TOTAL 09/15/2022 Complete Blood Count Auto Diff 4 Comprehensive Met. Panel 02/28/2024 Lipid Panel 09/23/2023 XR chest 2V 02/28/2024 XR thoracic spine 3V 11/27/2023 Routine Culture 02/09/2024 COVID-19 ID NOW ([place]) 02/28/2024 Influenza A B2 ID NOW ([place]) 4 Next Appt Details Provider Name:Ashish Huertas, 05/23/2024 11:15:00 AM, [address] [place] [address] [address], [place], [address], Provider Name:Ashish Huertas, 09/26/2024 09:30:00 AM, [address] [facility] [address], [place], [address], Insurance Providers Payer Name Payer Address Payer Phone Subscriber Number Group Number Insured Name Patient Relationship to Insured Coverage Start Date Coverage End Date [facility] [address] [place], [place] [id number] [phone] [id number] Sid Landeros Self - patient is the insured HEALTH [address] [place] [address] [id number] Sid Landeros Self - patient is the insured MEDICAL (GENERAL) HISTORY Medical History History ICD Code COPD (chronic obstructive pulmonary dise ase) J44.9 Hypertension I10 Erectile dysfunction Peripheral vascular disease Environmental allergies History of repaired pilonidal cyst Excised lipoma, left triceps, age 8 Porphyria cutanea tarda, Dr. Brady, [facility] Tobacco dependence Covid19 infection 2021 Lumbar radiculopathy Surgical History Surgery Date(Month/Year) Arterial Bipass 05/2022 Colonoscopy, [facility], Dr. Ramos Fracture of 2 fingers Repair of pilonidal cyst Excision of lipoma, left triceps, age 8 Esophagogastricduodoscopy Femoral -popliteal arterial bypass [facility] 05/2022
== END 2024-02-28 12:05 | disposition home or self-care (01) ==
PROVIDERS: Emergency Provider Emergency Medicine; PCP Internal Medicine Medical Oncology
DX: J44.1 Chronic obstructive pulmonary disease with (acute) exacerbation (principal); R06.02 Shortness of breath; R05.9 Cough, unspecified; F17.200 Nicotine dependence, unspecified, uncomplicated; I10 Essential (primary) hypertension; E11.9 Type 2 diabetes mellitus without complications; I73.9 Peripheral vascular disease, unspecified; Z79.899 Other long term (current) drug therapy
CPT/HCPCS: 71046; 80053; 85025; 87502; 87635; 94640; 99283; 99284; J1100

== ENCOUNTER 2024-03-07 10:52 | Outpatient (AMB) | payer BC, OTHER, SELFPAY ==
--- NOTE | 2024-03-07 11:02 | MHC.OFFVIS ---
Vital Signs 03/07/24 11:03 Height 5 ft 10 in Weight 176 lb 5.917 oz BMI 25.3 BP 140/70 H Blood Pressure Location Lt brachial Position Sitting Pulse 93 Pulse Source Pulse Oximeter Pulse Oximetry (%) 97 Oxygen Delivery Method Room Air Intake Visit Reasons: f/u er Intake Note: pt is here for follow up and states he is here for follow up of ER and states he still has a heavy cough, short of breath with walking. He would like to understand the difference between copd exh. vs hayfever symptoms. Health Care / Medical Job Titles Required: No Allergies doxycycline Allergy (Verified 03/07/24 11:30) Hives nabumetone Adverse Reaction (Unknown, Verified 03/07/24 11:30) green stools Medication List - Last Reconciled 03/07/24 by Natalie Lino MD amlodipine 10 mg PO DAILY 90 days aspirin (Adult Aspirin Regimen) 81 mg PO DAILY budesonide-formoterol 160-4.5 mcg/actuation (Symbicort) 2 puffs inhalation BID 90 days cefuroxime axetil 500 mg PO BID 10 days clopidogrel 75 mg PO DAILY ibuprofen 800 mg PO Q8H PRN 90 days ipratropium-albuterol 20-100 mcg/actuation (Combivent Respimat) 1 puff inhalation Q6H PRN 90 days pantoprazole 40 mg PO DAILY rosuvastatin (Crestor) 20 mg PO DAILY sildenafil 100 mg PO DAILY PRN Do you need a note to return to daycare/school/sports/work: No HPI HPI f/u er: Details: THIS 63 YEARS OLD GENTLEMAN, IS HERE FOR FOLLOW-UP AFTER HIS EMERGENCY ROOM VISIT ABOUT A WEEK AGO. HE WAS TREATED FOR MILD ACUTE EXACERBATION OF COPD. HE COMPLETED COURSE OF CEFUROXIME 500 B.I.D. FOR 5 DAYS. HE HAD IV DECADRON IN THE EMERGENCY ROOM BUT NOT DISCHARGED ON PREDNISONE. HE HAS NO RESIDUAL FEVER , OR CHEST PAIN. AT THE BEGINNING HE HAD VERY SEVERE COUGH BUT IT HAS SUBSIDED. 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 HE DOES HAVE FREQUENT NASAL CONGESTION WITH RUNNY NOSE. HE HAS BEEN USING CLARITIN ONLY ONCE IN A WHILE. HE HAS BEEN A SMOKER OF 1 PACK A DAY BUT NOW CUT DOWN ONLY TO 3-4 CIGARETTES PER DAY. COUNT INCLUDES THE [facility] Medical History (Updated 03/07/24 @ 12:01 by Natalie Lino MD) Allergic rhinitis Porphyria cutanea tarda Hereditary hemochromatosis Nicotine dependence, cigarettes, uncomplicated Murmur SOB (shortness of breath) ETOH abuse Arthritis GERD (gastroesophageal reflux disease) HTN (hypertension) COPD (chronic obstructive pulmonary disease) Tubular adenoma of colon Surgical History History of femoropopliteal bypass (11/02/23) History of femoropopliteal bypass History of colonoscopy S/P angiogram of extremity History of esophagogastroduodenoscopy History of lipoma History of skin graft History of removal of cyst History of foot surgery Family History Father Diabetes Stroke Hypertension Mother Chronic mental illness Family/Other FH: mental illness Social History Household Members: Spouse Housing: House Are you a primary day care home mother to a significant other at home: No Do you presently have visiting nurse or other home services: No 75 years or older and lives alone: No Alcohol intake: current Alcohol intake frequency: a few times a month Alcohol type: beer Comment: residual pain in left foot, but much improved and tolerable per patient. 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 occupational exposures/hazards: No Cognitive needs: No Hearing needs: No Vision needs: Yes Review of Systems Const All systems reviewed & are unremarkable except as noted in HPI and below Eyes Reports no additional complaints ENT Reports no additional complaints Card Denies chest pain, Denies irregular heart rhythm and Denies leg edema Resp Reports as per HPI GI Reports no additional complaints Reports erectile dysfunction Musc Reports no additional complaints Skin/Breast Reports system reviewed and no additional complaints, except as documented Neuro Reports no additional complaints Psych Reports no additional complaints Endo Reports no additional complaints Terrell/Lymph Reports other (h/o polycythemia ) Physical Exam Vital Signs: Last Vital Signs Pulse 93 03/07/24 11:03 BP 140/70 H 03/07/24 11:03 Pulse Ox 97 03/07/24 11:03 Oxygen Delivery Method Room Air 03/07/24 11:03 BMI result Body Mass Index 25.3 Const General: comfortable, no acute distress, alert and awake Orientation/consciousness: patient oriented x3 HEENT Head: Yes normal to inspection General nose exam: No nasal polyps present, No nasal discharge present and Other nasal findings present (MODERATE AMOUNT OF NASAL CONGESTION ESPECIALLY IN LEFT NARE ) Face and sinus: Yes sinuses nontender Mouth: oropharynx normal Throat: Yes posterior oropharynx normal Eyes General: appearance normal, both eyes and all related structures Neck Neck: Yes normal visual inspection, Yes no lymphadenopathy, Yes trachea midline and Yes no JVD Thyroid: Thyroid normal Chest Chest palpation & inspection: normal inspection of the chest, normal palpation of entire chest wall and no tenderness Resp Other: Percussion note resonant, breath sounds are distant with prolonged expiratory phase. LUNGS ARE CLEAR AND NO WHEEZES OR CREPITATIONS ARE HEARD TODAY. Cardio Palpation: normal PMI Rate: regular rate Rhythm: regular rhythm Heart sounds: no gallops and no murmurs GI Palpation (GI): Soft to palpation, nontender, No hepatosplenomegaly present and no masses Auscultation: normal bowel sounds Back/Spine/Pelvis Thoracic/Lumbar Spine: thoracic and lumbar spine normal to inspection Skin General skin exam: no rashes or lesions noted Neuro General: patient oriented x3 and no focal motor deficits Cranial nerves: Yes CN's II-XII intact bilaterally Extrem General: Yes normal to inspection, Yes no clubbing, cyanosis or edema and Yes no calf tenderness Psych Appearance: grossly normal and well kempt Speech and movement: Normal speech and movement present Results Reviewed Results Reviewed: CHEST X-RAY ON WAS REMARKABLE. Assessment & Plan Assessment & Plan (1) COPD (chronic obstructive pulmonary disease): Comment: COPD is moderately severe, secondary to smoking, Is relatively stable at this time, but he becomes symptomatic when doing any heavy physical work. Code(s): J44.9 - Chronic obstructive pulmonary disease, unspecified Category: Medical Qualifiers: COPD type: chronic bronchitis Chronic bronchitis type: simple Qualified Code(s): J41.0 - Simple chronic bronchitis Plan: Symbicort 160-4.52 puffs b.i.d., advised to keep on using it regularly. Combivent Respimat 1 inhalation Q 6 hours p.r.n.. Alternatively may use albuterol solution in the nebulizer q.6 hours p.r.n.. (2) Nicotine dependence, cigarettes, uncomplicated: Comment: (current smoker, onset 17yo, 1ppd x 45yrs, 45pyh) , has cut down to 15 cigarettes a day . now since the last week has cut down to 3-4 cigarettes a day. Code(s): F17.210 - Nicotine dependence, cigarettes, uncomplicated Category: Medical Plan: Talked to him about smoking as being the cause of his COPD, and also ongoing cough. Counseled to quit smoking completely. He is in ANNUAL LUNG SCREENING PROGRAM. (3) Allergic rhinitis: Comment: I THINK HE HAS ALLERGIC RHINITIS ON TOP OF HIS COPD. 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 Code(s): J30.9 - Allergic rhinitis, unspecified Category: Medical Plan: ADVISED TO USE FLONASE NASAL SPRAY 2 SPRAY IN EACH NOSTRIL DAILY AT NIGHT. ALSO ADVISED TO USE CLARITIN 10 MG OR CETIRIZINE .10 MG ONCE A DAY P.R.N. Coding Level of Care Code Est Pt Level 3 (29423) Diagnoses Simple chronic bronchitis J41.0 COPD type: chronic bronchitis Chronic bronchitis type: simple Nicotine dependence, cigarettes, uncomplicated F17.210 Allergic rhinitis J30.9
[2024-03-07 11:03] VITALS: BP 140/70; PULSE 93; O2SAT 97; BMI 25.3
== END 2024-03-07 11:55 | disposition home or self-care (01) ==
PROVIDERS: PCP Internal Medicine Medical Oncology; Visit Provider Internal Medicine
DX: J41.0 Simple chronic bronchitis (principal); F17.210 Nicotine dependence, cigarettes, uncomplicated; J30.9 Allergic rhinitis, unspecified
CPT/HCPCS: 99213

== ENCOUNTER → 2024-03-07 10:52 | Outpatient (BNVA) | payer BC, OTHER, SELFPAY | PROVIDERS: PCP Internal Medicine Medical Oncology; Visit Provider Internal Medicine ==

== ENCOUNTER 2024-05-25 12:21 | Outpatient (AMB) | payer BC, OTHER, SELFPAY ==
[2024-05-25 12:22] VITALS: BP 146/70; PULSE 93; BMI 24.9
--- NOTE | 2024-05-25 12:22 | A.OFFVIS_ITS ---
Vital Signs 05/25/24 12:22 Height 5 ft 10 in Weight 173 lb 4.533 oz BMI 24.9 BP 146/70 H Blood Pressure Location Lt brachial Position Sitting Pulse 93 Pulse Source Pulse Oximeter Intake Visit Reasons: 6 mth f/up Certified Optician Required: No Accompanied by: Self / Same As Patient Allergies doxycycline Allergy (Verified 03/07/24 11:30) Hives nabumetone Adverse Reaction (Unknown, Verified 03/07/24 11:30) green stools Medication List - Last Reconciled 05/25/24 by Carlos A Fletcher MD amlodipine 10 mg PO DAILY 90 days aspirin (Adult Aspirin Regimen) 81 mg PO DAILY budesonide-formoterol 160-4.5 mcg/actuation (Symbicort) 2 puffs inhalation BID 90 days cefuroxime axetil 500 mg PO BID 10 days clopidogrel 75 mg PO DAILY ibuprofen 800 mg PO Q8H PRN 90 days ipratropium-albuterol 20-100 mcg/actuation (Combivent Respimat) 1 puff inhalation Q6H PRN 90 days pantoprazole 40 mg PO DAILY rosuvastatin (Crestor) 20 mg PO DAILY sildenafil 100 mg PO DAILY PRN HPI Comments Details: Sid returns for follow-up. He has a history of peripheral vascular disease and has had lower extremity vascular surgeries. Based on vascular history, suspected have some coronary disease but nothing documented. Otherwise, also has hypertension, dyslipidemia, smoking. In spite of numerous discussions, he still states he is smoking. Otherwise, no symptoms like angina or shortness of breath. He states he is doing fine. [facility] Medical History (Updated 05/16/24 @ 11:54 by Celeste Lewis PA-C) ETOH abuse Hereditary hemochromatosis Atherosclerotic cardiovascular disease Bilateral carotid artery stenosis PAD (peripheral artery disease) Murmur HTN (hypertension) Hyperlipidemia COPD (chronic obstructive pulmonary disease) SOB (shortness of breath) Allergic rhinitis Nicotine dependence, cigarettes, uncomplicated GERD (gastroesophageal reflux disease) Tubular adenoma of colon Porphyria cutanea tarda Arthritis Surgical History History of femoropopliteal bypass History of femoropopliteal bypass (11/02/23) S/P angiogram of extremity History of colonoscopy History of esophagogastroduodenoscopy History of lipoma History of skin graft History of removal of cyst History of foot surgery Family History Father Diabetes Stroke Hypertension Mother Chronic mental illness Family/Other FH: mental illness Social History Household Members: Spouse Housing: House Are you a primary career services assistant to a significant other at home: No Do you presently have visiting nurse or other home services: No 75 years or older and lives alone: No Alcohol intake: current Alcohol intake frequency: a few times a month Alcohol type: beer Comment: residual pain in left foot, but much improved and tolerable per patient. 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 occupational exposures/hazards: No Cognitive needs: No Hearing needs: No Vision needs: Yes Review of Systems Const Denies chills, Denies fatigue, Denies fever(s), Denies weight gain and Denies weight loss ENT Denies dizziness Card Denies chest pain, Denies leg edema, Denies lightheadedness, Denies palpitations, Denies dyspnea on exertion, Denies orthopnea and Denies other Resp Denies cough and Denies dyspnea on exertion GI Denies hematochezia and Denies change in stool character Musc Denies abnormal gait, Denies muscle weakness, Denies numbness, Denies radiating pain into limb and Denies tingling Neuro Denies abnormal gait, Denies dizziness, Denies numbness and Denies tingling Endo Denies fatigue and Denies palpitations Physical Exam Vital Signs: Last Vital Signs Pulse 93 05/25/24 12:22 BP 146/70 H 05/25/24 12:22 BMI result Body Mass Index 24.9 Const General: comfortable and no acute distress Orientation/consciousness: patient oriented x3 HEENT Other: Unremarkable Head: Yes normal to inspection Neck Neck: Yes normal visual inspection Chest Chest palpation & inspection: normal inspection of the chest Resp Auscultation: rhonchi and diminished lung sounds Cardio Palpation: normal PMI Heart sounds: S1 normal heart sound present, S2 normal heart sound present, no gallops, no murmurs and no rubs GI Palpation (GI): Soft to palpation Back/Spine/Pelvis Other: unremarkable Skin General skin exam: no rashes or lesions noted Neuro General: patient oriented x3 Extrem General: Yes normal to inspection Psych Mental Status: mental status grossly normal Assessment & Plan Assessment & Plan (1) Atherosclerotic cardiovascular disease: Code(s): I25.10 - Atherosclerotic heart disease of [place] coronary artery without angina pectoris Category: Medical (2) PAD (peripheral artery disease): Comment: 06/16/2022 - left femoral to popliteal bypass 10/21/2023 - Left external iliac plasty 11/02/2023 - thrombectomy of left fem-pop bypass with distal anastomosis plasty Code(s): I73.9 - Peripheral vascular disease, unspecified Category: Medical (3) HTN (hypertension): Code(s): I10 - Essential (primary) hypertension Category: Medical Qualifiers: Hypertension type: primary hypertension Qualified Code(s): I10 - Essential (primary) hypertension (4) Nicotine dependence, cigarettes, uncomplicated: Comment: (current smoker, onset 17yo, 1ppd x 46yrs, now 1/4ppd, 45pyh) Code(s): F17.210 - Nicotine dependence, cigarettes, uncomplicated Category: Medical (5) Hyperlipidemia: Code(s): E78.5 - Hyperlipidemia, unspecified Category: Medical Plan Multiple risk factors, established peripheral vascular disease but no documented coronary disease. At high-risk for the same. Last echocardiogram with LVEF of 60-65% otherwise unremarkable. Last perfusion imaging study with mild reversible distal anterior/apical defect but there was improvement with CT attenuation correction and normal contractility. Hence thought to be more from soft tissue attenuation artifact and less likely from mild ischemia. Chest CT scan however does show some coronary artery calcification. Overall, continue treatment for stable coronary disease/vascular disease and aggressive risk factor modification. Discussed about smoking cessation numerous times including today but he is still smoking. He is aware of risks. With regard to blood pressure, slightly on the higher side today. He states he just took his blood pressure medications within the last hour. With regard dyslipidemia, on statins. LFTs slightly abnormal. That needs to be rechecked. Last available LDL 96 mg/dL. Advised him to do LFTs and lipids. Follow-up in 6 months. In the interim, if any concerns like chest pain, advised him seek urgent help immediately. Coding Level of Care Code Est Pt Level 4 (68662) Diagnoses Atherosclerotic cardiovascular disease I25.10 PAD (peripheral artery disease) I73.9 Primary hypertension I10 Hypertension type: primary hypertension Nicotine dependence, cigarettes, uncomplicated F17.210 Hyperlipidemia E78.5
== END 2024-05-25 12:45 | disposition home or self-care (01) ==
PROVIDERS: PCP Internal Medicine Medical Oncology; Visit Provider Internal Medicine
DX: I25.10 Atherosclerotic heart disease of native coronary artery without angina pectoris (principal); I73.9 Peripheral vascular disease, unspecified; I10 Essential (primary) hypertension; F17.210 Nicotine dependence, cigarettes, uncomplicated; E78.5 Hyperlipidemia, unspecified
CPT/HCPCS: 99214

== ENCOUNTER → 2024-05-25 12:21 | Outpatient (BNVA) | payer BC, OTHER, SELFPAY | PROVIDERS: PCP Internal Medicine Medical Oncology; Visit Provider Internal Medicine ==

== ENCOUNTER 2024-05-31 14:29 | Outpatient (AMB) | payer BC, OTHER, SELFPAY ==
--- NOTE | 2024-05-31 14:41 | A.OFFVIS_ITS ---
Vital Signs 05/31/24 14:42 Height 50 ft Weight 174 lb 2.643 oz BMI 0.3 BP 140/78 H Blood Pressure Location Lt brachial Position Sitting Pulse 80 Pulse Source Pulse Oximeter Pulse Oximetry (%) 96 Oxygen Delivery Method Room Air Intake Visit Reasons: Dyspnea Intake Note: pt is here for follow up and states he is feeling fine. 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: No Allergies doxycycline Allergy (Verified 05/31/24 15:14) Hives nabumetone Adverse Reaction (Unknown, Verified 05/31/24 15:14) green stools Medication List - Last Reconciled 05/31/24 by Natalie Lino MD amlodipine 10 mg PO DAILY 90 days aspirin (Adult Aspirin Regimen) 81 mg PO DAILY budesonide-formoterol 160-4.5 mcg/actuation (Symbicort) 2 puffs inhalation BID 90 days clopidogrel 75 mg PO DAILY ibuprofen 800 mg PO Q8H PRN 90 days ipratropium-albuterol 20-100 mcg/actuation (Combivent Respimat) 1 puff inhalation Q6H PRN 90 days pantoprazole 40 mg PO DAILY rosuvastatin (Crestor) 20 mg PO DAILY sildenafil 100 mg PO DAILY PRN Do you need a note to return to daycare/school/sports/work: No HPI HPI Dyspnea: Details: THIS 63 YEARS OLD GENTLEMAN IS HERE FOR FOLLOW-UP AFTER 3 MONTHS. HE CLAIMS THAT BREATHING BELL HE IS DOING WELL EXCEPT HER MILD INTERMITTENT COUGH AND SHORTNESS OF BREATH IF HE WALKS UP HILL OR CLIMBS STAIRS. HE IS HAPPY WITH THE CURRENT MEDICAL REGIMEN. THE PROBLEM IS THAT HE WENT BACK TO SMOKING ALMOST 1 PACK OF CIGARETTES A DAY NOW HAS CUT DOWN TO ABOUT 3/4 OF A PACK. HIS 'S STARTED SMOKING 1 PACK SO HE DID THE SAME. HE SAY IS BOTH HE AND HIS OR DISCUSSING AND THINKING OF CUTTING DOWN AGAIN. [facility] Medical History ETOH abuse Hereditary hemochromatosis Atherosclerotic cardiovascular disease Bilateral carotid artery stenosis PAD (peripheral artery disease) Murmur HTN (hypertension) Hyperlipidemia COPD (chronic obstructive pulmonary disease) SOB (shortness of breath) Allergic rhinitis Nicotine dependence, cigarettes, uncomplicated GERD (gastroesophageal reflux disease) Tubular adenoma of colon Porphyria cutanea tarda Arthritis Surgical History History of femoropopliteal bypass History of femoropopliteal bypass (11/02/23) S/P angiogram of extremity History of colonoscopy History of esophagogastroduodenoscopy History of lipoma History of skin graft History of removal of cyst History of foot surgery Family History Father Diabetes Stroke Hypertension Mother Chronic mental illness Family/Other FH: mental illness Social History Household Members: Spouse Housing: House Are you a primary director long term care to a significant other at home: No Do you presently have visiting nurse or other home services: No 75 years or older and lives alone: No Alcohol intake: current Alcohol intake frequency: a few times a month Alcohol type: beer Comment: residual pain in left foot, but much improved and tolerable per patient. 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 occupational exposures/hazards: No Cognitive needs: No Hearing needs: No Vision needs: Yes Review of Systems Const All systems reviewed & are unremarkable except as noted in HPI and below Eyes Reports no additional complaints ENT Reports no additional complaints Card Denies chest pain, Denies irregular heart rhythm and Denies leg edema Resp Reports as per HPI GI Reports no additional complaints Reports erectile dysfunction Musc Reports no additional complaints Skin/Breast Reports system reviewed and no additional complaints, except as documented Neuro Reports no additional complaints Psych Reports no additional complaints Endo Reports no additional complaints Terrell/Lymph Reports other (h/o polycythemia ) Physical Exam Vital Signs: Last Vital Signs Pulse 80 05/31/24 14:42 BP 140/78 H 05/31/24 14:42 Pulse Ox 96 05/31/24 14:42 Oxygen Delivery Method Room Air 05/31/24 14:42 BMI result Body Mass Index 0.3 Const General: comfortable, no acute distress, alert and awake Orientation/consciousness: patient oriented x3 HEENT Head: Yes normal to inspection General nose exam: No nasal polyps present, No nasal discharge present and Other nasal findings present (MODERATE AMOUNT OF NASAL CONGESTION ESPECIALLY IN LEFT NARE ) Face and sinus: Yes sinuses nontender Mouth: oropharynx normal Throat: Yes posterior oropharynx normal Eyes General: appearance normal, both eyes and all related structures Neck Neck: Yes normal visual inspection, Yes no lymphadenopathy, Yes trachea midline and Yes no JVD Thyroid: Thyroid normal Chest Chest palpation & inspection: normal inspection of the chest, normal palpation of entire chest wall and no tenderness Resp Other: Percussion note resonant, breath sounds are distant with prolonged expiratory phase. LUNGS ARE CLEAR AND NO WHEEZES OR CREPITATIONS ARE HEARD TODAY. Cardio Palpation: normal PMI Rate: regular rate Rhythm: regular rhythm Heart sounds: no gallops and no murmurs GI Palpation (GI): Soft to palpation, nontender, No hepatosplenomegaly present and no masses Auscultation: normal bowel sounds Back/Spine/Pelvis Thoracic/Lumbar Spine: thoracic and lumbar spine normal to inspection Skin General skin exam: no rashes or lesions noted Neuro General: patient oriented x3 and no focal motor deficits Cranial nerves: Yes CN's II-XII intact bilaterally Extrem General: Yes normal to inspection, Yes no clubbing, cyanosis or edema and Yes no calf tenderness Psych Appearance: grossly normal and well kempt Speech and movement: Normal speech and movement present Assessment & Plan Assessment & Plan (1) COPD (chronic obstructive pulmonary disease): Comment: COPD is moderately severe, secondary to smoking, Is relatively stable at this time, but he becomes symptomatic when doing any heavy physical work. Code(s): J44.9 - Chronic obstructive pulmonary disease, unspecified Category: Medical Qualifiers: COPD type: chronic bronchitis Chronic bronchitis type: simple Qualified Code(s): J41.0 - Simple chronic bronchitis Plan: CONTINUE SYMBICORT 160-4.52 PUFFS B.I.D.. COMBIVENT RESPIMAT 1 INHALATION Q 4-6 HOURS P.R.N. A RESCUE INHALER (2) Allergic rhinitis: Comment: (Allergic Rhinitis on top of COPD - gets increased nasal congestion when outdoors) Code(s): J30.9 - Allergic rhinitis, unspecified Category: Medical Plan: MAY USE OTC ANTIHISTAMINIC AGENTS SUCH LORATADINE OR CETIRIZINE P.R.N. (3) Nicotine dependence, cigarettes, uncomplicated: Comment: (current smoker, onset 17yo, 1ppd x 46yrs, had cut it down to few cigarettes a day but now in the past few months has gone back to 1 pack a day, Code(s): F17.210 - Nicotine dependence, cigarettes, uncomplicated Category: Medical Plan: Discussed with him in detail and I advised him to cut down the cigarettes gradually and finally quit Offered him help such as nicotine patch or gum, but he would like to discuss it with his and see if both of them can plan to quit smoking. Continue in annual lung screening program. Coding Level of Care Code Est Pt Level 3 (09041) Diagnoses Simple chronic bronchitis J41.0 COPD type: chronic bronchitis Chronic bronchitis type: simple Allergic rhinitis J30.9 Nicotine dependence, cigarettes, uncomplicated F17.210
[2024-05-31 14:42] VITALS: BP 140/78; PULSE 80; O2SAT 96
== END 2024-05-31 15:14 | disposition home or self-care (01) ==
PROVIDERS: PCP Internal Medicine Medical Oncology; Visit Provider Internal Medicine
DX: J41.0 Simple chronic bronchitis (principal); J30.9 Allergic rhinitis, unspecified; F17.210 Nicotine dependence, cigarettes, uncomplicated
CPT/HCPCS: 99213

== ENCOUNTER → 2024-05-31 14:29 | Outpatient (BNVA) | payer BC, OTHER, SELFPAY | PROVIDERS: PCP Internal Medicine Medical Oncology; Visit Provider Internal Medicine ==

== ENCOUNTER 2024-06-08 11:08 | Outpatient (REF) | payer BC, OTHER, SELFPAY ==
[2024-06-08 12:37] LABS: Alanine Aminotransferase 31 U/L (0-40); Albumin Level 4.4 g/dL (3.5-5.0); Alkaline Phosphatase 110 U/L (39-117); Aspartate Amino Transferase 40 U/L (5-37); Bilirubin Direct 0.3 mg/dL (0.0-0.5); Bilirubin Total 0.6 mg/dL (0.0-1.0); Cholesterol 140 mg/dL (<200); HDL Cholesterol 66 mg/dL (>40); LDL Cholesterol Calculated 67 mg/dL (<100); Total Protein 7.8 g/dL (6.5-8.0); Triglycerides 39 mg/dL (<150)
== END 2024-06-08 11:09 | disposition home or self-care (01) ==
LOC: HO.LAB 11:08
PROVIDERS: PCP Internal Medicine Medical Oncology; Visit Provider Internal Medicine
DX: E78.5 Hyperlipidemia, unspecified (principal); I25.10 Atherosclerotic heart disease of native coronary artery without angina pectoris
CPT/HCPCS: 36415; 80061; 80076

== ENCOUNTER 2024-08-22 10:56 | Outpatient (REF) | payer BC, OTHER, SELFPAY | END 2024-08-22 10:57 | disposition home or self-care (01) | LOC: HO.US 10:56 | PROVIDERS: PCP Internal Medicine Medical Oncology; Visit Provider Surgery Vascular Surgery | DX: I73.9 Peripheral vascular disease, unspecified (principal) | CPT/HCPCS: 93922; 93925 ==

== ENCOUNTER 2024-09-06 12:58 | Outpatient (AMB) | payer BC, OTHER, SELFPAY ==
--- NOTE | 2024-09-06 13:08 | A.OFFVIS_ITS ---
Intake Visit Reasons: 6m follow up s/p Arterial US 08/22/24 Intake Note: F/U Arterial U/S. Intermittent left LE swelling. 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 He had undergone left fem-pop bypass with revision in October of 2023. He reports he is ambulating fairly well no significant difficulties. He does still have some neuropathy of the foot other than that no significant complaints. He now presents for follow-up with noninvasive testing. [facility] Medical History (Updated 06/08/24 @ 07:38 by Yary Melissa NP) Abnormal LFTs ETOH abuse Hereditary hemochromatosis Atherosclerotic cardiovascular disease Bilateral carotid artery stenosis PAD (peripheral artery disease) Murmur HTN (hypertension) Hyperlipidemia COPD (chronic obstructive pulmonary disease) SOB (shortness of breath) Allergic rhinitis Nicotine dependence, cigarettes, uncomplicated GERD (gastroesophageal reflux disease) Tubular adenoma of colon Porphyria cutanea tarda Arthritis Surgical History History of femoropopliteal bypass History of femoropopliteal bypass (11/02/23) S/P angiogram of extremity History of colonoscopy History of esophagogastroduodenoscopy History of lipoma History of skin graft History of removal of cyst History of foot surgery Family History Father Diabetes Stroke Hypertension Mother Chronic mental illness Family/Other FH: mental illness Social History (Updated 09/06/24 @ 13:10 by Leida Leal CMA) Household Members: Spouse Housing: House Are you a primary nursing care attendant to a significant other at home: No Do you presently have visiting nurse or other home services: No 75 years or older and lives alone: No Alcohol intake: current Alcohol intake frequency: a few times a month Alcohol type: beer Comment: residual pain in left foot, but much improved and tolerable per patient. 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 occupational exposures/hazards: No Cognitive needs: No Hearing needs: No Vision needs: Yes Review of Systems Const All systems reviewed & are unremarkable except as noted in HPI and below Denies chills, Denies fatigue, Denies fever(s), Denies weight gain and Denies weight loss ENT Reports Normal hearing present and Denies dizziness Card Denies chest pain, Denies leg edema, Denies lightheadedness, Denies palpitations, Denies dyspnea on exertion, Denies orthopnea and Denies other Resp Denies cough and Denies dyspnea on exertion GI Denies hematochezia and Denies change in stool character Musc Denies abnormal gait, Denies muscle weakness, Denies numbness, Denies radiating pain into limb and Denies tingling Skin/Breast Denies skin ulcer and Denies wounds Neuro Reports Normal hearing present, Denies abnormal gait, Denies dizziness, Denies numbness and Denies tingling Psych Reports no additional complaints Endo Denies fatigue and Denies palpitations Physical Exam Const General: cooperative, healthy appearing and comfortable Orientation/consciousness: oriented to person, oriented to place and oriented to time HEENT Head: Yes normal to inspection Neck Neck: Yes normal visual inspection Carotids: no bruits Chest Chest palpation & inspection: normal inspection of the chest Resp Effort & Inspection: normal respiratory effort and able to speak in complete sentences Auscultation: clear to auscultation bilaterally, no crackles, no rales, no rhonchi and no wheezes Cardio Rate: regular rate Rhythm: regular rhythm Heart sounds: S1 normal heart sound present and S2 normal heart sound present Bruits: no carotid bruits Peripheral pulses: Peripheral pulses 2+ throughout GI Inspection: Yes normal to inspection Skin Wounds: no wounds Hair: normal Neuro General: oriented to person, oriented to place and oriented to time Cranial nerves: Yes CN's II-XII intact bilaterally and Yes Normal hearing present Cognition (Neuro): normal cognition Motor exam (neuro): 5/5 motor strength present throughout Extrem Other: venous exam: No significant superficial varicosities or spider telangiectasias, minimal edema General: No clubbing, No cyanosis and No edema Psych Appearance: grossly normal Mental Status: mental status grossly normal Speech and movement: Normal speech and movement present Results Reviewed Results Reviewed: Noninvasive arterial testing dated 08/22/2024 demonstrates KAI on the right of 0.69 and on the left of 0.92. Written report and images were reviewed. Assessment & Plan Assessment & Plan (1) PAD (peripheral artery disease): Comment: 06/16/2022 - left femoral to popliteal bypass 10/21/2023 - Left external iliac plasty 11/02/2023 - thrombectomy of left fem-pop bypass with distal anastomosis plasty Code(s): I73.9 - Peripheral vascular disease, unspecified Category: Medical Plan: In short patient has patent left lower extremity bypass. I did review the pathophysiology of peripheral vascular disease with the patient. In addition we did discuss routine conservative measures including a healthy diet and the importance of exercise and ambulation. We did discuss risk factor modification. The patient will continue to to follow-up with surveillance follow-up in approximately 6 months. Thank you for allowing us to participate in this patient's care. If there are any questions or concerns please do not hesitate to contact us. Orders: Orders US arterial duplex LE BI 6 Months I73.9 - Peripheral vascular disease, unspecified Coding Level of Care Code Est Pt Level 4 (27996) Complex EM visit Add On G2211 Diagnoses PAD (peripheral artery disease) I73.9
--- OUTSIDE RECORDS SUMMARY | 2024-09-07 21:18 | XMS_ITS ---
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 Medications Medication SIG (Take, Route, Frequency, Duration) Notes Start Date End Date Status Symbicort 160-4.5 MCG/ACT 2 puffs Inhala tion Twice a day Active Clopidogrel Bisulfate 75 MG 1 tablet Orally Once a day 08/02/2024 Active Sildenafil Citrate 100 MG 1 tablet Orall y Once a day 05/15/2023 Active Pantoprazole Sodium 40 MG as directed Or ally Once a day Active Mupirocin 2 % 1 application Telephone Order Dispatcher ally Twice a day 11/20/2023 Active traMADol HCl 50 MG 1 tablet Orally ever y 6 hours prn back pain 12/23/2022 Active Combivent Respimat 20-100 MCG/ACT 1 puff as needed Inhalation every 6 hrs Active Ibuprofen 800 MG Oral Act henrry Rosuvastatin Calcium 20 MG 1 tablet Oral ly Once a day Active Varenicline Tartrate (Starter) 0.5 MG X 11 & 1 MG X 42 as directed Orally as directed 01/30/2023 Active Sulfamethoxazole-Trimethop rim 800-160 MG 1 tablet Orally twice a day for 10 days 08/02/2024 08/12/2024 Active amLODIPine Besylate 10 MG as directed Or ally Once a day Active Social History Tobacco Use: Social History Observation Description Date [...] ast year? No Points 0 Interpretation Negative Vital Signs Temperature 98.8 degrees Fahrenheit 08/02/20 24 Blood pressure systolic 148 mm Hg 08/02/20 24 Blood pressure diastolic 82 mm Hg 024 Heart Rate 92 /min 08/02/2024 Height 70 in 08/02/2024 Weight 176 lbs 08/02/2024 BMI 25.25 kg/m2 08/02/2024 Encounters Encounter Location Date Provider Diagnosis Ashish Huertas III, MD [address] [place] [address] [place] [address] 08/02/2024 Ashish Huertas Infection of pelvis M86.9 ; Peripheral arterial disease I73.9 ; COPD (chronic obstructive pulmonary disease) J44.9 ; Lumbar radiculopathy, right M54.16 ; BPH (benign prostatic hyperplasia) N40.0 and Hypertension I10 Assessments Encounter Date Diagnosis (ICD Code) Assessment Notes Treatment Notes Treatment Clinical Notes 08/02/2024 Infection of pelvis (ICD-10 - M86.9) He has an abscess in his perineal body on the left side. Reports that this drained pus last week which resulted in a marked improvement in the pain. There is still a small abscess there which is slightly painful. No opening in the skin was appreciated s 08/02/2024 Peripheral arterial disease (ICD-10 - I73.9) His claudication has improved. He recently underwent a revision of his left femoral-popliteal bypass graft. The wound is now healed. He experiences some claudication in his right leg and is able to walk one block without stopping to rest. 08/02/2024 COPD (chronic obstructive pulmonary disease) (ICD-10 - [...] include lung cancer, COPD, oxygen dependence, etc. 08/02/2024 Lumbar radiculopathy, right (ICD-10 - M54.16) He continues to have pain that comes from his lower lumbar spine and right paravertebral muscles that radiates into his right buttock. X-rays have shown degenerative disease. The pain is aggravated with walking more than 10 feet and lifting more than 10 pounds. He has been referred to [facility] medicine for physical therapy injections imaging and evaluation for surgery. 08/02/2024 BPH (benign prostatic hyperplasia) (ICD-10 - N40.0) He rises from sleep usually once a night occasionally twice. We have discussed lifestyle modifications he can make to reduce nocturia. 08/02/2024 Hypertension (ICD-10 - I10) His blood pressure is 148/82. No change in his regimen was made. I encouraged him to pursue aggressive sodium restriction. He was given an appointment to come to the office and recheck his blood pressure. Plan Of Treatment Medication Medication Name Sig Start Date Stop Date Notes Symbicort 160-4.5 MCG/ACT 2 puffs Inhala tion Twice a day Clopidogrel Bisulfate 75 MG 1 tablet Orally Once a day 01/2024 Sildenafil Citrate 100 MG 1 tablet Orally Once a day 05/15 Pantoprazole Sodium 40 MG as directed Or ally Once a day Mupirocin 2 % 1 application Telephone Order Dispatcher ally Twice a day 11/20/2023 traMADol HCl 50 MG 1 tablet Orally ever y 6 hours prn back pain 12/23/2022 Combivent Respimat 20-100 MCG/ACT 1 puff as needed Inhalation every 6 hrs Ibuprofen 800 MG Oral Rosuvastatin Calcium 20 MG 1 tablet Orally Once a day Varenicline Tartrate (Starter) 0.5 MG X 11 & 1 MG X 42 as directed Orally as directed 01/30/2023 Sulfamethoxazole-Trimethopri m 800-160 MG 1 tablet Orally twice a day for 10 days 08/02/2024 08/12/2024 amLODIPine Besylate 10 MG as directed Or ally Once a day Next Appt Details Follow Up: 11 D, 11 days lat er, Reason: OV, Check-up for abscess on backside Provider Name:Ashish Huertas, 09/26/2024 09:30:00 AM, [address] [place] [address] [place], [place], [address], Progress Notes * Sid LANDEROS MDOB: [birth year] (63 yo M)Acc No.[id number]:08/02/2024 Progress Notes Patient:?Sid LANDEROS Provider:?Ashish Huertas MD :1960???Age:63 Y???Sex:Male Danny e:08/02/2024 Address: [address], [id number] Subjective: * Chief Complaints: * ???Abscess in the perineumTo bacco dependenceCOPDHypertensionBenign prostatic hypertrophy4. * HPI: ???:? The patient, a 63-year-old male, presented with a complaint of an abscess on his backside. He reported that the abscess has been coming and going, but this time it stayed. The patient noticed bleeding and pus discharge from the abscess. He also reported that the abscess has reduced in size after the discharge. The patient denied any pain in the area. The doctor examined the abscess and found it to be slightly indurated and not open to the skin. The patient also reported that he has been smoking but has reduced to 3 cigarettes a day. The patient's blood pressure was slightly high, but his weight was reported to be good. Pain Scale is 0. * ROS:?General/Constitutional:?Denies?pain,?Abscess perineal body, only normal aches and pains.?Chills?denies.?Fatigue?admits.?Fever?denies.?Ophthalmologic:?Admits?Discharge.?ENT:?Decreased hearing?denies.?Respiratory:?Cough?denies.?Cardiovascular:?Chest pain with exertion?denies.?Dyspnea on exertion?denies.?Shortness of breath?denies.?Gastrointestinal:?Constipation?denies.?Decreased appetite?denies.?Diarrhea?denies.?Heartburn?denies.?Nausea?denies.?Rectal bleeding?denies.?Vomiting?denies.?Hematology:?bruising?denies.?petechiae?denies.?Swollen glands?none have been noted.?Genitourinary:?Frequent urination?once a night.?Musculoskeletal:?Muscle aches?denies.?Painful joints?denies.?Sciatica?denies.?Weakness?denies.?Skin:?Itching?denies.?Rash?denies.?Skin lesion(s)?denies.?Neurologic:?Difficulty speaking?denies.?Dizziness?denies.?Headache?denies.?Low back pain?denies.?Psychiatric:?Depressed mood?denies.? * Medical History:? * Surgical History:?Femoral -p opliteal arterial [place] [place]Esophagogastricduodoscopy Excision of lipoma, left triceps, age 8 Repair of pilonidal cyst Fracture of 2 fingers Colonoscopy, [facility], Dr. Ramos Arterial Bipass 05/2022No history * Hospitalization/Major Diagno stic Procedure:?No history * Family History:?Father: dece ased 72 yrs, diagnosed with DM, CVD.?Mother: 83 yrs.?Siblings: alive, ovarian cancer.?2 sister(s) . 1 son(s) - healthy. .? He is not aware of any family history of mental illness or substance abuse. His oldest sister has ovarian cancer. * Social History:?Tobacco Use:?Tobacco Use/Smoking?Patient is a?current smoker ?How often do you smoke cigarettes??every day ?How many cigarettes a day do you smoke??21-30 ?How soon after you wake up do you smoke your first cigarette??6-30 minutes ?Are you interested in quitting??Not ready to quit ?Additional Findings: Tobacco User?Heavy cigarette smoker (20-39 cigs/day) ???Drugs/Alcohol:?Drugs?Have you used drugs other than those for medical reasons in the past 12 months??No ?Alcohol Screen?Did you have a drink containing alcohol in the past year??No ?Points?0 ?Interpretation?Negative ???Smoking - Reduced to 3 cigarettes a day. * Medications:?TakingamLODIPin e Besylate 10 MG Tablet as directed Orally Once a day Rosuvastatin Calcium 20 MG Tablet 1 tablet Orally Once a day Varenicline Tartrate (Starter) 0.5 MG X 11 & 1 MG X 42 Tablet Therapy Pack as directed Orally as directed traMADol HCl 50 MG Tablet 1 tablet Orally every 6 hours prn back pain Combivent Respimat 20-100 MCG/ACT Aerosol Solution 1 puff as needed Inhalation every 6 hrs Ibuprofen 800 MG Tablet Oral Symbicort 160-4.5 MCG/ACT Aerosol 2 puffs Inhalation Twice a day Sildenafil Citrate 100 MG Tablet 1 tablet Orally Once a day Pantoprazole Sodium 40 MG Tablet Delayed Release as directed Orally Once a day Mupirocin 2 % Ointment 1 application Externally Twice a day Clopidogrel Bisulfate 75 MG Tablet 1 tablet Orally Once a day Medication List reviewed and reconciled with the patientTaking amLODIPine Besylate 10 MG Tablet as directed Orally Once a day Taking Rosuvastatin Calcium 20 MG Tablet 1 tablet Orally Once a day Taking Varenicline Tartrate (Starter) 0.5 MG X 11 & 1 MG X 42 Tablet Therapy Pack as directed Orally as directed Taking traMADol HCl 50 MG Tablet 1 tablet Orally every 6 hours prn back pain Taking Combivent Respimat 20-100 MCG/ACT Aerosol Solution 1 puff as needed Inhalation every 6 hrs Taking Ibuprofen 800 MG Tablet Oral Taking Symbicort 160-4.5 MCG/ACT Aerosol 2 puffs Inhalation Twice a day Taking Sildenafil Citrate 100 MG Tablet 1 tablet Orally Once a day Taking Pantoprazole Sodium 40 MG Tablet Delayed Release as directed Orally Once a day Taking Mupirocin 2 % Ointment 1 application Externally Twice a day Taking Clopidogrel Bisulfate 75 MG Tablet 1 tablet Orally Once a day Medication List reviewed and reconciled with the patient * Allergies:?Doxycyclineno[All ergies Verified] Objective: * Vitals:?Ht: 70, Wt: 176, BMI :25.25, BP: 148/82, HR: 92, Temp: 98.8, Ht-cm: 177.8, Wt-k.83. * Examination: ??? : ???Abscess on backside - Slightly indurated and not open to the skin. ???General Examination: ?GENERAL APPEARANCE:?pleasant, well nourished, well developed, in no acute distress, calm and relaxed, overweight, man.?HEAD:?atraumatic, normocephalic.?EYES:?eomi, perrla, anicteric, conjugate.?EARS:?normal.?NOSE:?septum intact.?ORAL CAVITY:?normal, unremarkable.?NECK/THYROID:?no jugular venous distention, no carotid bruit, thyroid normal.?LYMPH NODES:?no enlarged lymph nodes,spleen normal.?SKIN:?no suspicious lesions, anicteric.?HEART:?no clicks, gallops, murmurs, or rubs, regular rhythm, S1, S2 normal, no s3, or vascular bruits.?LUNGS:?clear to auscultation .?BREASTS:??no masses palpable bilaterally.?ABDOMEN:?bowel sounds normal, no ascites, no organomegaly, no mass, overweight.?RECTAL EXAM:?not examined.?MUSCULOSKELETAL:?extremities unremarkable, no clubbing, cyanosis or edema.?PERIPHERAL PULSES:?normal.?NEUROLOGIC:?alert and oriented, cranial nerves 2-12 grossly intact, deep tendon reflexes 2+ symmetrical, motor strength normal upper and lower extremities, sensory exam intact.?PSYCH:?alert, oriented.?Genitourinary - Male: ?SCROTUM:?Behind his scrotum in front of the anus on the left side of the perineal body under the skin was a moderately painful2 cm lump..? Assessment: * Assessment: 1.?Infection of pelvis - M86 .9 (Primary)???Notes :He has an abscess in his perineal body on the left side.? Reports that this drained pus last week which resulted in a marked improvement in the pain.? There is still a small abscess there which is slightly painful.? No opening in the skin was appreciated s???2.?Peripheral arterial disease - I73.9???Notes :His claudication has improved. He recently underwent a revision of his left femoral-popliteal bypass graft. The wound is now healed. He experiences some claudication in his right leg and is able to walk one block without stopping to rest.???3.?COPD (chronic obstructive pulmonary disease) - J44.9???Notes :His breathing is currently unimpaired. He denies any wheezing or shortness of breath with activities of daily life. He continues to smoke cigarettes, however. We discussed smoking cessation. I reviewed with him the importance of reducing and eliminating the use of tobacco. We have reviewed the health consequences of continued smoking, which include lung cancer, COPD, oxygen dependence, etc.???4.?Lumbar radiculopathy, right - M54.16???Notes :He continues to have pain that comes from his lower lumbar spine and right paravertebral muscles that radiates into his right buttock. X-rays have shown degenerative disease. The pain is aggravated with walking more than 10 feet and lifting more than 10 pounds. He has been referred to [facility] spine and [facility] rehabilitation medicine for physical therapy injections imaging and evaluation for surgery.???5.?BPH (benign prostatic hyperplasia) - N40.0???Notes :He rises from sleep usually once a night occasionally twice. We have discussed lifestyle modifications he can make to reduce nocturia.???6.?Hypertension - I10???Notes :His blood pressure is 148/82. No change in his regimen was made. I encouraged him to pursue aggressive sodium restriction. He was given an appointment to come to the office and recheck his blood pressure.??? Plan: * Treatment: 2.?Others? Start Sulfamethoxazole-Trimethoprim Tablet, 800-160 MG, 1 tablet, Orally, twice a day, 10 days, 20 Tablet, Refills 0.?? * Procedure Codes:? * Preventive Medicine:? ??Counseling:?Care goal follow-up plan:?Counseling for abnormal BMI given?Yes ?Above Normal BMI Follow-up?Dietary management education, guidance, and counseling, Dietary needs education ?Smoking/Tobacco Use?Patient counseled on the dangers of tobacco use and urged to quit.?08/02/2024 ?Patient Lifestyle Goals?Patient wants to quit ?Treatment Goals?Set a quit date, Cut down by 1 cigarette a week ?Barriers?Stress, Social smoker ?Self-Management Plan?Make a plan to cut down number of cigarettes over time and set a date to work towards quitting ??COPD Care Plan:?Patient Lifestyle Goals?Be able to be more active with friends and family, Reduce number of ED and hospitalizations, Relieve symptoms and improve quality of life.?Treatment Goals?Quit Smoking.?Barriers?no barriers.?Self-Managment Goals?Make a plan for quitting smoking.? * Follow Up:?11 D, 11 days lat er (Reason: OV, Check-up for abscess on backside) * Images: * Sign off status: Completed true * Provider:?Ashish Huertas MD Date:?01/2024 Generated for Elmeri michael/Namita/eTransmitting on:?09/07/2024 09:18 PM EST History and Physical Notes * Examination Category Sub-Category Detail Notes Genitourinary - Male SCROTUM: Behind his scrotum in front of the anus on the left side of the perineal body under the skin was a moderately painful2 cm lump. General Examination GENERAL APPEARANCE: pleasant , well nourished, well developed, in no acute distress, calm and relaxed, overweight, man HEAD: atraumatic, normocep halic EYES: eomi, perrla, anicte jagruti, conjugate EARS: normal NOSE: septum intact NECK/THYROID: no jugular venous di stention, no carotid bruit, thyroid normal HEART: no clicks, gallops, murmurs, or rubs, regular rhythm, S1, S2 normal, no s3, or vascular bruits LUNGS: clear to auscultatio n ABDOMEN: bowel sounds normal, no ascites, no organomegaly, no mass, overweight NEUROLOGIC: alert and oriented, cranial nerves 2-12 grossly intact, deep tendon reflexes 2+ symmetrical, motor strength normal upper and lower extremities, sensory exam intact SKIN: no suspicious lesion s, anicteric PERIPHERAL PULSES: normal BREASTS: no masses palpable b ilaterally MUSCULOSKELETAL: extremities unremark able, no clubbing, cyanosis or edema LYMPH NODES: no enlarged lymph no jose,spleen normal RECTAL EXAM: not examined PSYCH: alert, oriented ORAL CAVITY: normal, unremarkable
--- OUTSIDE RECORDS SUMMARY | 2024-09-07 21:18 | XMS_ITS ---
Author Organization Ashish Huertas III, MD Address [address] [facility] [place] [address] Care Team Providers Care Car Servicer Name Role Phone Ashish Huertas Primary Care Provider [phone] Allergies Allergen (clinical drug ingredient) Drug/Non Drug Allergy documented on EMR Reaction Allergy Type Onset Date Status doxycycline Doxycycline Unknown Drug Allergy Act henrry REASON FOR VISIT COPD, Hypertension, BPH, PVD, Tobacco dependence, Lumbar radiculopathy, Perineal abscess Medications Medication SIG (Take, Route, Frequency, Duration) Notes Start Date End Date Status Clopidogrel Bisulfate 75 MG 1 tablet Ora lly Once a day 08/02/2024 Active Mupirocin 2 % 1 application Coal Unloader ally Twice a day 11/20/2023 Active Symbicort 160-4.5 MCG/ACT 2 puffs Inhala tion Twice a day Active Pantoprazole Sodium 40 MG as directed Or ally Once a day Active Sildenafil Citrate 100 MG 1 tablet Orall y Once a day 05/15/2023 Active Rosuvastatin Calcium 20 MG 1 tablet Oral ly Once a day Active Ibuprofen 800 MG Oral Act henrry Combivent Respimat 20-100 MCG/ACT 1 puff as needed Inhalation every 6 hrs Active traMADol HCl 50 MG 1 tablet Orally ever y 6 hours prn back pain 12/23/2022 Active Varenicline Tartrate (Starter) 0.5 MG X 11 & 1 MG X 42 as directed Orally as directed 01/30/2023 Active amLODIPine Besylate 10 MG as directed [...] Points 0 Interpretation Negative Vital Signs Temperature 97.2 degrees Fahrenheit 08/15/20 24 Blood pressure systolic 142 mm Hg 08/15/20 24 Blood pressure diastolic 80 mm Hg 024 Heart Rate 87 /min 08/15/2024 Height 70 in 08/15/2024 Weight 174 lbs 08/15/2024 BMI 24.96 kg/m2 08/15/2024 Encounters Encounter Location Date Provider Diagnosis Ashish Huertas III, MD [address] [place] [address] [place] [address] 08/15/2024 Ashish Huertas Infection of pelvis M86.9 ; Hypertension I10 ; BPH (benign prostatic hyperplasia) N40.0 ; COPD (chronic obstructive pulmonary disease) J44.9 ; Peripheral arterial disease I73.9 and Lumbar radiculopathy, right M54.16 Assessments Encounter Date Diagnosis (ICD Code) Assessment Notes Treatment Notes Treatment Clinical Notes 08/15/2024 Infection of pelvis (ICD-10 - M86.9) He had an abscess in his perineal body on the left side. It is now resolved 08/15/2024 Hypertension (ICD-10 - I10) His blood pressure is 148/82. No change in his regimen was made. I encouraged him to pursue aggressive sodium restriction. He was given an appointment to come to the office and recheck his blood pressure. 08/15/2024 BPH (benign prostatic hyperplasia) (ICD-10 - N40.0) He rises from sleep usually once a night occasionally twice. We have discussed lifestyle modifications he can make to reduce nocturia. 08/15/2024 COPD (chronic obstructive pulmonary disease) (ICD-10 - [...] include lung cancer, COPD, oxygen dependence, etc. 08/15/2024 Peripheral arterial disease (ICD-10 - I73.9) His claudication has improved. He recently underwent a revision of his left femoral-popliteal bypass graft. The wound is now healed. He experiences some claudication in his right leg and is able to walk one block without stopping to rest. 08/15/2024 Lumbar radiculopathy, right (ICD-10 - M54.16) He continues to have pain that comes from his lower lumbar spine and right paravertebral muscles that radiates into his right buttock. X-rays have shown degenerative disease. The pain is aggravated with walking more than 10 feet and lifting more than 10 pounds. He has been referred to [facility] rehabilitation medicine for physical therapy injections imaging and evaluation for surgery. Plan Of Treatment Medication Medication Name Sig Start Date Stop Date Notes Clopidogrel Bisulfate 75 MG 1 tablet Orally Once a day 01/2024 Mupirocin 2 % 1 application Coal Unloader ally Twice a day 11/20/2023 Symbicort 160-4.5 MCG/ACT 2 puffs Inhala tion Twice a day Pantoprazole Sodium 40 MG as directed Or ally Once a day Sildenafil Citrate 100 MG 1 tablet Orally Once a day 05/15 Rosuvastatin Calcium 20 MG 1 tablet Orally Once a day Ibuprofen 800 MG Oral Combivent Respimat 20-100 MCG/ACT 1 puff as needed Inhalation every 6 hrs traMADol HCl 50 MG 1 tablet Orally ever y 6 hours prn back pain 12/23/2022 Varenicline Tartrate (Starte r) 0.5 MG X 11 & 1 MG X 42 as directed Orally as directed 01/30/2023 amLODIPine Besylate 10 MG as directed Or ally Once a day Next Appt Details Follow Up: As Scheduled, 3 m onths later, Reason: OV, Routine check-up Provider Name:Ashish Huertas, 09/26/2024 09:30:00 AM, [address] [place] [address] [address] [facility] [address], [place], [address], Progress Notes * Sid LANDEROS MDOB: 2 (63 yo M)Acc No.[id number]:08/15/2024 Progress Notes Patient:?Sid LANDEROS Provider:?Ashish Huertas MD :1960???Age:63 Y???Sex:Male Danny e:08/15/2024 Address:[address] [place] [address], [id number] Subjective: * Chief Complaints: * ???COPDHypertensionBPHPVDTob acco dependenceLumbar radiculopathyPerineal abscess * HPI: ???COVID-19 Screening:?Questions?Have you experienced fever, chills, cough, sore throat, shortness of breath, difficulty breathing, muscle aches, loss of taste or smell??No ?Have you been exposed to the virus within the last 10 days??No ?Have you travelled internationally in the last 10 days??No ?Have you been exposed to COVID-19 in the past??Yes ???:?The patient, a 63-year-old male, presented with a history of an infection on his backside, which was treated with antibiotics. The infection has since resolved. 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 The patient has been smoking three cigarettes a day and has not reported any breathing problems. He has been getting up once a night to urinate and has not reported any incontinence. The patient also reported some concern about the blood flow in his legs, but did not report any symptoms such as cramps or pain. He is scheduled for an ultrasound later this month to further evaluate this issue. Blood Sugar Level is 100. * ROS:?General/Constitutional:?pain?only normal aches and pains.?Chills?denies.?Fatigue?admits.?Fever?denies.?ENT:?Decreased hearing?denies.?Respiratory:?Cough?denies.?Cardiovascular:?Chest pain with exertion?denies.?Dyspnea on exertion?denies.?Shortness of breath?with exertion.?Gastrointestinal:?Constipation?occasional.?Decreased appetite?denies.?Diarrhea?denies.?Heartburn?denies.?Nausea?denies.?Rectal bleeding?denies.?Vomiting?denies.?Hematology:?bruising?denies.?petechiae?denies.?Swollen glands?none have been noted.?Genitourinary:?Frequent urination?at night.?Musculoskeletal:?Muscle aches?denies.?Painful joints?denies.?Sciatica?denies.?Weakness?denies.?Skin:?Itching?denies.?Rash?denies.?Skin lesion(s)?denies.?Neurologic:?Difficulty speaking?denies.?Dizziness?denies.?Headache?denies.?Low back pain?denies.?Psychiatric:?Depressed mood?denies.? * Medical History:? * Surgical History:[place] [place]Esophagogastricduodoscopy Excision of lipoma, left triceps, age 8 Repair of pilonidal cyst Fracture of 2 fingers Colonoscopy, [facility], Dr. Ramos Arterial Bipass 05/2022No history * Hospitalization/Major Diagno stic Procedure:?No history * Family History:?Father: dece ased 72 yrs, diagnosed with CVD, DM.?Mother: 83 yrs.?Siblings: alive, ovarian cancer.?2 sister(s) . [...] ???Smoking - Reduced to 3 cigarettes a day {'Smoking': '3 cigarettes a day'}. * Medications:?TakingamLODIPin e Besylate 10 MG Tablet [...] ergies Verified] Objective: * Vitals:?Ht: 70, Wt: 174, BMI :24.96, BP: 142/80, HR: 87, Temp: 97.2, Ht-cm: 177.8, Wt-k.93. * ???Past Orders: Lab:Lipid Panel * Collection Date 06/08/2024 03/23/2023 Collection Time 11:32 AM 09:19 AM Order Date 06/08/2024 03/23/2023 Triglycerides 39 (Ref Range: <150 mg/dL) 81 (Ref Range: mg/dL) Cholesterol 140 (Ref Range: <200 mg/dL) 192 (Ref Range: mg/dL) LDL Cholesterol Calculated 67 (Ref Range: <100 mg/dL) 96 (Ref Range: mg/dl) HDL Cholesterol 66 (Ref Range: >40 mg/dL) 80 (Ref Range: mg/dL) ???Lab:Liver Panel (Order Date - 06/08/2024) (Collection Date & Time - 06/08/2024 11:32 AM)?ValueReference Range?Bilirubin Total0.60.0- 1.0 - mg/dL?Bilirubin Direct0.30.0-0.5 - mg/dL?Aspartate Amino [id number] - U/L?Alanine [id number] - U/L ?Total Protein7.86.5-8.0 - g/dL?Albumin Level4.43.5-5.0 - g/dL ?Alkaline [id number] - U/L * Examination: ???General Examination: ?GENERAL APPEARANCE:?pleasant, well nourished, well developed, in no acute distress, calm and relaxed, man.?HEAD:?atraumatic, normocephalic.?EYES:?eomi, perrla, anicteric, conjugate.?EARS:?normal.?NOSE:?septum intact.?ORAL CAVITY:?normal, unremarkable.?NECK/THYROID:?no jugular venous distention, no carotid bruit, thyroid normal.?LYMPH NODES:?no enlarged lymph nodes,spleen normal.?SKIN:?no suspicious lesions, anicteric.?HEART:?no clicks, gallops, murmurs, or rubs, regular rhythm, S1, S2 normal, no s3, or vascular bruits.?LUNGS:?, diminished breath sounds throughout, no wheezes, rales, rhonchi, good air movement.?BREASTS:??no masses palpable bilaterally.?ABDOMEN:?bowel sounds normal, no ascites, no organomegaly, no mass, Perineal infection resolved.?RECTAL EXAM:?not examined.?MUSCULOSKELETAL:?extremities unremarkable, no clubbing, cyanosis or edema.?PERIPHERAL PULSES:?normal.?NEUROLOGIC:?alert and oriented, cranial nerves 2-12 grossly intact, deep tendon reflexes 2+ symmetrical, motor strength normal upper and lower extremities, sensory exam intact.?PSYCH:?alert, oriented.? : ???{'Legs':'No cramps or pain reported', 'Ears': 'No wax, clean eardrum', 'Feet': 'Protected well by footwear'}. ??? Assessment: * Assessment: 1.?Hypertension - I10 (Prima ry)???Notes :His blood pressure is 148/82. No change in his regimen was made. I encouraged him to pursue aggressive sodium restriction. He was given an appointment to come to the office and recheck his blood pressure.???2.?Infection of pelvis - M86.9???Notes :He had an abscess in his perineal body on the left side. It is now resolved???3.?BPH (benign prostatic hyperplasia) - N40.0???Notes :He rises from sleep usually once a night occasionally twice. We have discussed lifestyle modifications he can make to reduce nocturia.???4.?COPD (chronic obstructive pulmonary disease) - J44.9???Notes :His [...] which include lung cancer, COPD, oxygen dependence, etc.???5.?Peripheral arterial disease - I73.9???Notes :His claudication has improved. He recently underwent a revision of his left femoral-popliteal bypass graft. The wound is now healed. He experiences some claudication in his right leg and is able to walk one block without stopping to rest.???6.?Lumbar radiculopathy, right - M54.16???Notes :He continues to have pain that comes from his lower lumbar spine and right paravertebral muscles that radiates into his right buttock. X-rays have shown degenerative disease. The pain is aggravated with walking more than 10 feet and lifting more than 10 pounds. He has been referred to [facility] spine and sports rehabilitation medicine for physical therapy injections imaging and evaluation for surgery.??? Plan: * Treatment: * Procedure Codes:? * Preventive Medicine:? ??Counseling:?Smoking/Tobacco Use?Patient counseled on the dangers of tobacco use and urged to quit.?08/16/2024 ?Patient Lifestyle Goals?Patient wants to quit ?Treatment Goals?Set a quit date, Cut down by 1 cigarette a week ?Barriers?Social smoker, Stress ?Self-Management Plan?Make a plan to cut down number of cigarettes over time and set a date to work towards quitting ??COPD Care Plan:?Patient Lifestyle Goals?Relieve symptoms and improve quality of life, Reduce number of ED and hospitalizations, Be able to be more active with friends and family.?Treatment Goals?Eat a nutritious diet and increase water consumption to 6-8 glasses a day, Quit Smoking.?Barriers?no barriers.?Self-Managment Goals?Get an air purifier for the rooms you are in the most, Eat a healthy diet, Make a plan for quitting smoking.? * Follow Up:?As Scheduled, 3 m onths later (Reason: OV, Routine check-up) * Images: * Sign off status: Completed true * Provider:?Ashish Huertas MD Date:?07/29 Generated for Vanessa rodriguez/Namita/eTransmitting on:?09/07/2024 09:18 PM EST History and Physical Notes * HPI (History of Present Illness) Category Sub-Category Detail Notes COVID-19 Screening Questions Have you had any new onset fever, chills, cough, congestion, sore throat, shortness of breath, muscle aches?: No Have you been exposed to the virus withi n the last 10 days?: No Have you travelled internationally in e last 10 days?: No Have you been exposed to COVID-19 in the past?: Yes Examination Category Sub-Category Detail Notes General Examination GENERAL APPEARANCE: pleasant , well nourished, well developed, in no acute distress, calm and relaxed, man HEAD: atraumatic, normocep halic EYES: eomi, perrla, anicte jagruti, conjugate EARS: normal NOSE: septum intact NECK/THYROID: no jugular venous di stention, no carotid bruit, thyroid normal HEART: no clicks, gallops, murmurs, or rubs, regular rhythm, S1, S2 normal, no s3, or vascular bruits LUNGS: , diminished breath sounds throughout, no wheezes, rales, rhonchi, good air movement ABDOMEN: bowel sounds normal, no ascites, no organomegaly, no mass, Perineal infection resolved NEUROLOGIC: alert and oriented, cranial nerves 2-12 [...]
--- OUTSIDE RECORDS SUMMARY | 2024-09-07 21:19 | XMS_ITS | Patient Health Record ---
Author Organization Ashish Huertas III, MD Address [address] [place] [address] Care Team Providers Care Foreman/Project Manager Name Role Phone Ashish Huertas Primary Care Provider [phone] Allergies Allergen (clinical drug ingredient) Drug/Non Drug Allergy documented on EMR Reaction Allergy Type Onset Date Status doxycycline Doxycycline Unknown Drug Allergy Act henrry Results Component Value Reference Range Notes URINE DIP STICK Reviewed date:09/23/2023 09:45:16 AM Interpretation: Performing Lab: Notes/Report: SG 1.010 1.005 - 1.025 pH 6.5 5.0 - 9.0 JAYLYN Negative Negative - NIT Negative Negative - PRO 15 Negative - Trace GLU Negative Negative - KET 5 Negative - UBG 0.2 0.1 - 1.8 DIOR Negative 0.2 - 1.3 BLD Negative Negative - XR lumbar spine 4V min Reviewed date:01/31/2024 02:54:18 PM Interpretation: Performing Lab: Notes/Report: [address] [address] XRay Report Signed Patient: Sid Landeros MR#: [id number] : 1960 Acct:[id number] Age/Sex: 63 / M ADM Date: 11/27/23 Loc: HO.XRAY Attending Dr: Ashish Huertas MD Ordering Physician: Ashish Huertas MD Date of Service: 11/30/23 Procedure(s): XR lumbar spine 4V min Accession Number(s): [id number] cc: Ashish Huertas MD EXAMINATION: XR THORACIC [...] in OV> 11/30/23 1132 DD/ 0945 TD/TT: Mobility Scooter Repairer: [place] [address] XRay Report Signed Patient: Marlo Landeros MR#: [id number] : 1960 Acct:[id number] Age/Sex: 63 / M ADM Date: 11/27/23 Loc: HO.XRAY Attending Dr: Ashish Huertas MD Ordering Physician: Ashish Huertas MD Date of Service: 11/30/23 Procedure(s): XR lum bar spine 4V min Accession Number(s): [id number] cc: Ashish Huertas MD EXAMINATION: XR THORACIC SPINE XR LUMBAR SPINE CLINICAL INFORMATION: Back pain. COMPARISON: 07/08/2019 and 09/18/2015 TECHNIQUE: AP, lateral and swimmer's views of the thoracic spine were obtained. AP, lateral and bilateral oblique views of the lumbar spine were obtained. FINDINGS: Thoracic spine: Ther e are 12 rib-bearing thoracic vertebral bodies. Normal sagittal alignment. Vertebral body heights are maintained. Multilevel ventral osteophytes. Pedicles are intact. Lumbar spine: There are 5 nonrib-bearing lumbar vertebral bodies. Minimal retrolisthes is of L2 on L3 unchanged from prior. Vertebral body heights are maintain ed. Intervertebral disc spaces are preserved. Facet hypertrophy at L3-L4 , L4-L5 and L5-S1. Sclerotic changes of the sacroiliac joints. Atherosclerotic changes of the abdominal aorta. X R/XR lumbar spine 4V min IMPRESSION: No acute abnormality. Dictated By: Orestes Lennon MD Signed By: <Electronically signed by Orestes Lennon MD in OV> 11/30/23 1132 DD/ 0945 TD/TT: Mobility Scooter Repairer: US KAI complete Reviewed date:09/24/2023 05:55:12 PM Interpretation: Performing Lab: Notes/Report: [address] [address] Ultrasound Report Signed Patient: Sid Landeros MR#: [id number] : 1960 Acct:[id number] Age/Sex: 62 / M ADM Date: 09/07/23 Loc: HO.US Attending Dr: Jhony Orr MD Ordering Physician: Jhony Orr MD Date of Service: 09/07/23 Procedure(s): US KAI complete Accession Number(s): [id number] cc: Ashish Huertas MD; Jhony Orr MD [...] the prior exam. 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 There is interval occlusion [...] in OV> 09/14/23 0935 DD/ 1530 TD/TT: Mobility Scooter Repairer: [place] [address] Ultrasound Report Signed Patient: Marlo Landeros MR#: [id number] : 1960 Acct:[id number] Age/Sex: 62 / M ADM Date: 09/07/23 Loc: . Attending Dr: Jhony Orr MD Ordering Physician: Jhony Orr MD Date of Service: 09/07/23 Procedure(s): US KAI complete Accession Number(s): [id number] cc: Ashish Huertas MD; Jhony Orr MD EXAMINATION: Noninvasive assessme nt of the bilateral lower extremities with ARTERIAL DUPLEX and ANKLE BRACHIAL INDICES (ABIs). CLINICAL INFORMATION: Peripheral vascular disease TECHNIQUE: Duplex Doppler techniques with waveform analysis and measurement of velocities in the bilateral common femoral, profunda femoris, superficial femoral, popliteal and tibial arteries were performed. Additionally, ankle pulse volume recordings, ankle pressure measurements and ank le brachial indices were obtained of the lower extremity arterial system bilaterally. The study was performed only at rest. COMPARISON: 11/11/2022 FINDINGS: DIRECT DUPLEX DOPPLE R FINDINGS: RIGHT LEG: Common femoral arter y: 122 cm/s, phasicity: Biphasic Profunda femoris art floyd: 118 cm/s, phasicity: Biphasic Superficial femoral artery (proximal): 72.0 cm/s, phasicity: Biphasic Superficial femoral artery (mid): 57.2 cm/s, phasicity: Biphasic Superficial femoral artery (distal): Short segment occlusion with adjacent collateral vessels. Reconstituted flow is seen in the distal segment with dampene d monophasic waveform and decreased velocity measuring 20.9 cm/s Popliteal artery: 34 .5 cm/s, phasicity: Monophasic Posterior tibial art floyd: 12.8 cm/s, phasicity: Monophasic Peroneal artery: 19. 2 cm/s, phasicity: Monophasic Anterior tibial tenisha ry: 18.0 cm/s, phasicity: Monophasic Dorsalis pedis arter y: 19.0 cm/s, phasicity:Monophasic LEFT LEG: Common femoral arter y: 49.2 cm/s, phasicity: Monophasic Profunda femoris art floyd: 46.7 cm/s, phasicity: Monophasic Superficial femoral artery (proximal): Occluded Superficial femoral artery (mid): Occluded Superficial femoral artery (distal): Occluded Femoropopliteal bypa ss graft is occluded, which was previously patent on the prior ultrasound Popliteal artery: 18 .8 cm/s, phasicity: Monophasic Posterior tibial art floyd: 11.6 cm/s, phasicity: Monophasic Peroneal artery: 14. 0 cm/s, phasicity: Monophasic Anterior tibial tenisha ry: 11.8 cm/s, phasicity: Monophasic Dorsalis pedis arter y: 10.8 cm/s, phasicity: Monophasic ANKLE-BRACHIAL INDEX: Right: 0.73, previou sly 0.87? Left: 0.55, previous ly 0.74 ANKLE PRESSURES: Right: PT 101, DP 94 Left: PT?76, DP?73 ANKLE PVR WAVEFORMS: Right: Abnormal Left: Abnormal U S/US KAI complete IMPRESSION: Right leg: Mildly decreased ankle brachial index which is stable. Short segment occlusion of the distal superficial femoral artery with reconstituted monoph asic flow within the popliteal artery and below-knee runoff as described above. No significant change compared to the prior exam. Left leg: Moderately decreased ankle brachial index which is significantly decrea sed compared to the prior exam. 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 There is interval occlusion of the femoropoplite al bypass graft. Reconstituted flow seen in the popliteal artery wit h severely dampened but patent arterial waveforms seen in the below-kn ee runoff vessels. KAI Reference: - >1.4 = calcified vessels - 0.9 - 1.4 = normal - no significant arterial disease - 0.7 - 0.89 = mild peripheral arterial disease - 0.51 - 0.69 = mode rate peripheral arterial disease - ? 0.50 = severe peripheral arterial disease - < .30 = critical arterial disease EXAMINATION: US RETROPERITONEAL LIMITED (AORTA) CLINICAL INFORMATION: Peripheral vascular disease. COMPARISON: None available. TECHNIQUE: Silverman-scale, color Doppler and spectral Doppler evaluation of the abdominal aorta. FINDINGS: The aorta is normal. The measurements of the aorta in maximum AP and transverse dimension s respectively are as follows: Proximal: 3.0 x 2.2 cm. Mid: 2.1 x 2.0 cm. Distal: 2.4 x 2.3 cm. PSV: 56.0 cm/s. The duplex Doppler o f the bilateral iliac arteries: Right Common Iliac [...] in OV> 09/14/23 0935 DD/ 1530 TD/TT: Mobility Scooter Repairer: US carotid duplex BI Reviewed date:09/24/2023 05:55:12 PM Interpretation: Performing Lab: Notes/Report: [address] [address] Ultrasound Report Signed Patient: Sid Landeros MR#: [id number] : 1960 Acct:[id number] Age/Sex: 62 / M ADM Date: 09/07/23 Loc: HO.US Attending Dr: Jhony Orr MD Ordering Physician: Carlos A Fletcher MD Date of Service: 09/07/23 Procedure(s): US carotid duplex BI Accession Number(s): [id number] cc: Ashish Huertas MD; Carlos A Fletcher [...] in OV> 09/08/23 1037 DD/ 1408 TD/TT: Mobility Scooter Repairer: [address] [address] Ultrasound Report Signed Patient: Marlo Landeros MR#: [id number] : 1960 Acct:[id number] Age/Sex: 62 / M ADM Date: 09/07/23 Loc: HO. Attending Dr: Jhony Orr MD Ordering Physician: Carlos A Fletcher MD Date of Service: 09/07/23 Procedure(s): US car otid duplex BI Accession Number(s): [id number] cc: Ashish Huertas MD; Carlos A Fletcher MD EXAMINATION: US EXTRACRANIAL GRAHAM TID DUPLEX, BILATERAL CLINICAL INFORMATION: Carotid stenosis. COMPARISON: None available. TECHNIQUE: Real-time ultrasound and Doppler techniques (integrating B-mode 2-D vascular images, Dop pler spectral analysis and color-flow Doppler imaging) were utilized to interrog ate the extracranial carotid arteries, the vertebral arteries a nd proximal subclavian arteries bilaterally. The degree of stenosis i s determined by criteria similar to NASCET. FINDINGS: Right Side: 1. There is mild atherosclerotic plaque seen in the bifurcation/proximal ICA region. 2. The common caroti d artery PSV proximally is 94 cm/s and distally 72 cm/s. 3. The proximal inte rnal carotid artery velocities are 64 cm/s systolic and 24 cm/s diastolic. 4. The proximal exte rnal carotid artery PSV is 89 cm/s. 5. The vertebral art floyd shows antegrade flow. 6. The subclavian ar eloy waveforms are normal. Left Side: 1. There is mild atherosclerotic plaque seen in the bifurcation/proximal ICA region. 2. The common caroti d artery PSV proximally is 117 cm/s and distally 75 cm/s. 3. The proximal inte rnal carotid artery velocities are 81 cm/s systolic and 35 cm/s diastolic. 4. The proximal exte rnal carotid artery PSV is 114 cm/s. 5. The vertebral art floyd shows antegrade flow. 6. The subclavian ar eloy waveforms are normal. S/ carotid duplex BI IMPRESSION: 1. RIGHT: Minimal, non-hemodynamically significant stenosis of the proximal right inter nal carotid artery corresponding to a 0-49% stenosis by velocity criteria. 2. LEFT: Minimal, non-hemodynamically significant stenosis of the proximal left business management intern al carotid artery corresponding to a 0-49% stenosis by velocity criteria. Dictated By: Hardeep Villeda MD Signed By: <Electronically signed by Hardeep Villeda MD in OV> 09/08/23 1037 DD/ 1408 TD/TT: Layboy Tender ist: SS US arterial duplex LE BI Reviewed date:09/24/2023 05:55:12 PM Interpretation: Performing Lab: Notes/Report: [address] [address] Ultrasound Report Signed Patient: Sid Landeros MR#: [id number] : 1960 Acct:[id number] Age/Sex: 62 / M ADM Date: 09/07/23 Loc: HO.US Attending Dr: Jhony Orr MD Ordering Physician: Jhony Orr MD Date of Service: 09/07/23 Procedure(s): US arterial duplex LE BI Accession Number(s): [id number] cc: Ashish Huertas MD; Jhony Orr MD [...] the prior exam. 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 There is interval occlusion [...] in OV> 09/14/23 0935 DD/ 1530 TD/TT: Mobility Scooter Repairer: [place] [address] Ultrasound Report Signed Patient: Marlo Landeros MR#: [id number] : 1960 Acct:[id number] Age/Sex: 62 / M ADM Date: 09/07/23 Loc: HO.US Attending Dr: Jhony Orr MD Ordering Physician: Jhony Orr MD Date of Service: 09/07/23 Procedure(s): US arterial duplex LE BI Accession Number(s): [id number] cc: Ashish Huertas MD; Jhony Orr MD EXAMINATION: Noninvasive assessme nt of the bilateral lower extremities with ARTERIAL DUPLEX and ANKLE BRACHIAL INDICES (ABIs). CLINICAL INFORMATION: Peripheral vascular disease TECHNIQUE: Duplex Doppler techniques with waveform analysis and measurement of velocities in the bilateral common femoral, profunda femoris, superficial femoral, popliteal and tibial arteries were performed. Additionally, ankle pulse volume recordings, ankle pressure measurements and ank le brachial indices were obtained of the lower extremity arterial system bilaterally. The study was performed only at rest. COMPARISON: 11/11/2022 FINDINGS: DIRECT DUPLEX DOPPLE R FINDINGS: RIGHT LEG: Common femoral arter y: 122 cm/s, phasicity: Biphasic Profunda femoris art floyd: 118 cm/s, phasicity: Biphasic Superficial femoral artery (proximal): 72.0 cm/s, phasicity: Biphasic Superficial femoral artery (mid): 57.2 cm/s, phasicity: Biphasic Superficial femoral artery (distal): Short segment occlusion with adjacent collateral vessels. Reconstituted flow is seen in the distal segment with dampene d monophasic waveform and decreased velocity measuring 20.9 cm/s Popliteal artery: 34 .5 cm/s, phasicity: Monophasic Posterior tibial art floyd: 12.8 cm/s, phasicity: Monophasic Peroneal artery: 19. 2 cm/s, phasicity: Monophasic Anterior tibial tenisha ry: 18.0 cm/s, phasicity: Monophasic Dorsalis pedis arter y: 19.0 cm/s, phasicity:Monophasic LEFT LEG: Common femoral arter y: 49.2 cm/s, phasicity: Monophasic Profunda femoris art floyd: 46.7 cm/s, phasicity: Monophasic Superficial femoral artery (proximal): Occluded Superficial femoral artery (mid): Occluded Superficial femoral artery (distal): Occluded Femoropopliteal bypa ss graft is occluded, which was previously patent on the prior ultrasound Popliteal artery: 18 .8 cm/s, phasicity: Monophasic Posterior tibial art floyd: 11.6 cm/s, phasicity: Monophasic Peroneal artery: 14. 0 cm/s, phasicity: Monophasic Anterior tibial tenisha ry: 11.8 cm/s, phasicity: Monophasic Dorsalis pedis arter y: 10.8 cm/s, phasicity: Monophasic ANKLE-BRACHIAL INDEX: Right: 0.73, previou sly 0.87? Left: 0.55, previous ly 0.74 ANKLE PRESSURES: Right: PT 101, DP 94 Left: PT?76, DP?73 ANKLE PVR WAVEFORMS: Right: Abnormal Left: Abnormal U S/US arterial duplex LE BI IMPRESSION: Right leg: Mildly decreased ankle brachial index which is stable. Short segment occlusion of the distal superficial femoral artery with reconstituted monoph asic flow within the popliteal artery and below-knee runoff as described above. No significant change compared to the prior exam. Left leg: Moderately decreased ankle brachial index which is significantly decrea sed compared to the prior exam. 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 There is interval occlusion of the femoropoplite al bypass graft. Reconstituted flow seen in the popliteal artery wit h severely dampened but patent arterial waveforms seen in the below-kn ee runoff vessels. KAI Reference: - >1.4 = calcified vessels - 0.9 - 1.4 = normal - no significant arterial disease - 0.7 - 0.89 = mild peripheral arterial disease - 0.51 - 0.69 = mode rate peripheral arterial disease - ? 0.50 = severe peripheral arterial disease - < .30 = critical arterial disease EXAMINATION: US RETROPERITONEAL LIMITED (AORTA) CLINICAL INFORMATION: Peripheral vascular disease. COMPARISON: None available. TECHNIQUE: Silverman-scale, color Doppler and spectral Doppler evaluation of the abdominal aorta. FINDINGS: The aorta is normal. The measurements of the aorta in maximum AP and transverse dimension s respectively are as follows: Proximal: 3.0 x 2.2 cm. Mid: 2.1 x 2.0 cm. Distal: 2.4 x 2.3 cm. PSV: 56.0 cm/s. The duplex Doppler o f the bilateral iliac arteries: Right Common Iliac [...] in OV> 09/14/23 0935 DD/ 1530 TD/TT: Mobility Scooter Repairer: US abdominal aortic aneurysm Reviewed date:09/24/2023 05:55:12 PM Interpretation: Performing Lab: Notes/Report: [address] [address] Ultrasound Report Signed Patient: Sid Landeros MR#: [id number] : 1960 Acct:[id number] Age/Sex: 62 / M ADM Date: 09/07/23 Loc: HO.US Attending Dr: Jhony Orr MD Ordering Physician: Jhony Orr MD Date of Service: 09/07/23 Procedure(s): US abdominal aortic aneurysm Accession Number(s): [id number] cc: Ashish Huertas MD; Jhony Orr MD [...] the prior exam. 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 There is interval occlusion [...] in OV> 09/14/23 0935 DD/ 1530 TD/TT: Mobility Scooter Repairer: [address] [address] Ultrasound Report Signed Patient: Marlo Landeros MR#: [id number] : 1960 Acct:[id number] Age/Sex: 62 / M ADM Date: 09/07/23 Loc: HO. Attending Dr: Jhony Orr MD Ordering Physician: Jhony Orr MD Date of Service: 09/07/23 Procedure(s): US abdominal aortic aneurysm Accession Number(s): [id number] cc: Ashish Huertas MD; Jhony Orr MD EXAMINATION: Noninvasive assessme nt of the bilateral lower extremities with ARTERIAL DUPLEX and ANKLE BRACHIAL INDICES (ABIs). CLINICAL INFORMATION: Peripheral vascular disease TECHNIQUE: Duplex Doppler techniques with waveform analysis and measurement of velocities in the bilateral common femoral, profunda femoris, superficial femoral, popliteal and tibial arteries were performed. Additionally, ankle pulse volume recordings, ankle pressure measurements and ank le brachial indices were obtained of the lower extremity arterial system bilaterally. The study was performed only at rest. COMPARISON: 11/11/2022 FINDINGS: DIRECT DUPLEX DOPPLE R FINDINGS: RIGHT LEG: Common femoral arter y: 122 cm/s, phasicity: Biphasic Profunda femoris art floyd: 118 cm/s, phasicity: Biphasic Superficial femoral artery (proximal): 72.0 cm/s, phasicity: Biphasic Superficial femoral artery (mid): 57.2 cm/s, phasicity: Biphasic Superficial femoral artery (distal): Short segment occlusion with adjacent collateral vessels. Reconstituted flow is seen in the distal segment with dampene d monophasic waveform and decreased velocity measuring 20.9 cm/s Popliteal artery: 34 .5 cm/s, phasicity: Monophasic Posterior tibial art floyd: 12.8 cm/s, phasicity: Monophasic Peroneal artery: 19. 2 cm/s, phasicity: Monophasic Anterior tibial tenisha ry: 18.0 cm/s, phasicity: Monophasic Dorsalis pedis arter y: 19.0 cm/s, phasicity:Monophasic LEFT LEG: Common femoral arter y: 49.2 cm/s, phasicity: Monophasic Profunda femoris art floyd: 46.7 cm/s, phasicity: Monophasic Superficial femoral artery (proximal): Occluded Superficial femoral artery (mid): Occluded Superficial femoral artery (distal): Occluded Femoropopliteal bypa ss graft is occluded, which was previously patent on the prior ultrasound Popliteal artery: 18 .8 cm/s, phasicity: Monophasic Posterior tibial art floyd: 11.6 cm/s, phasicity: Monophasic Peroneal artery: 14. 0 cm/s, phasicity: Monophasic Anterior tibial tenisha ry: 11.8 cm/s, phasicity: Monophasic Dorsalis pedis arter y: 10.8 cm/s, phasicity: Monophasic ANKLE-BRACHIAL INDEX: Right: 0.73, previou sly 0.87? Left: 0.55, previous ly 0.74 ANKLE PRESSURES: Right: PT 101, DP 94 Left: PT?76, DP?73 ANKLE PVR WAVEFORMS: Right: Abnormal Left: Abnormal U S/US abdominal aortic aneurysm IMPRESSION: Right leg: Mildly decreased ankle brachial index which is stable. Short segment occlusion of the distal superficial femoral artery with reconstituted monoph asic flow within the popliteal artery and below-knee runoff as described above. No significant change compared to the prior exam. Left leg: Moderately decreased ankle brachial index which is significantly decrea sed compared to the prior exam. 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 There is interval occlusion of the femoropoplite al bypass graft. Reconstituted flow seen in the popliteal artery wit h severely dampened but patent arterial waveforms seen in the below-kn ee runoff vessels. KAI Reference: - >1.4 = calcified vessels - 0.9 - 1.4 = normal - no significant arterial disease - 0.7 - 0.89 = mild peripheral arterial disease - 0.51 - 0.69 = mode rate peripheral arterial disease - ? 0.50 = severe peripheral arterial disease - < .30 = critical arterial disease EXAMINATION: US RETROPERITONEAL LIMITED (AORTA) CLINICAL INFORMATION: Peripheral vascular disease. COMPARISON: None available. TECHNIQUE: Silverman-scale, color Doppler and spectral Doppler evaluation of the abdominal aorta. FINDINGS: The aorta is normal. The measurements of the aorta in maximum AP and transverse dimension s respectively are as follows: Proximal: 3.0 x 2.2 cm. Mid: 2.1 x 2.0 cm. Distal: 2.4 x 2.3 cm. PSV: 56.0 cm/s. The duplex Doppler o f the bilateral iliac arteries: Right Common Iliac [...] in OV> 09/14/23 0935 DD/ 1530 TD/TT: Mobility Scooter Repairer: Creatinine GFR POC Reviewed date:10/12/2023 08:41:12 AM Interpretation: Performing Lab:[facility], [address] [place] [address] Notes/Report: [id number] .63 >60 1131 HO.BERCHB Creatinine POC 0.6 0.5-1.4 mg/dL GFR POC > 60 Chronic Kidney Disease: Estimated GFR < 60 mL/min/1.73m2 Severe Kidney Disease: Estimated GFR < 15 mL/min/1.73m2 CT angio abd aorta runoff Reviewed date:10/07/2023 04:23:32 PM Interpretation: Performing Lab: Notes/Report: [address] [address] [address] Scan Report Signed Patient: Sid Landeros MR#: [id number] : 1960 Acct:[id number] Age/Sex: 62 / M ADM Date: 10/07/23 Loc: HO.CT Attending Dr: Jhony Orr MD Ordering Physician: Jhony Orr MD Date of Service: 10/07/23 Procedure(s): CT angio abd aorta runoff Accession Number(s): [id number] cc: Ashish Huertas MD; Jhony Orr MD [...] from the initial data set by the [facility] under concurrent physician supervision. [...] distal external iliac artery with an occluded andreafski SFA and femoral-popliteal bypass graft. The popliteal is reconstituted just above the knee joint with two-vessel runoff via the anterior tibial and peroneal arteries. 4. Incidental nonvascular findings as described above including cholelithiasis, sigmoid diverticulosis and BPH. Dictated By: Hardeep Vilelda MD Signed By: <Electronically signed by Hardeep Villeda MD in OV> 10/07/23 1314 DD/ 1203 TD/TT: Mobility Scooter Repairer: [place] [address] CT Scan Report Signed Patient: Marlo Landeros MR#: [id number] : 1960 Acct:[id number] Age/Sex: 62 / M ADM Date: 10/07/23 Loc: HO.CT Attending Dr: Jhony Orr MD Ordering Physician: Jhony Orr MD Date of Service: 10/07/23 Procedure(s): CT ang io abd aorta runoff Accession Number(s): [id number] cc: Ashish Huertas MD; Jhony Orr MD STUDY PERFORMED: CTA ABDOMEN, PELVIS AND LOWER EXTREMITY RUNOFF WITH CONTRAST HISTORY: Peripheral vascular disease with occluded left lower extremity bypass graft DESCRIPTION: Routine abdominal ao rta and lower extremity runoff CTA protocol with contrast was perform ed. 100 mL of Omnipaque 350 was administered. 3D POSTPROCESSING: Multiple 3-D angiographic images were processed from the initial data set by the [facility] under concurrent physician supervision. This CT examination was performed using dose optimization techniques as appropriate, various ly including the following: *Automated exposure control *Adjustment of mA an d/or kV according to patient size (this includes techniques or standardized protocols for targeted exams where dose is matched to indication/reason for exam; i.e. extremities or head) *Use of iterative reconstruction technique DLP: 684 mGycm. COMPARISON: None FINDINGS: VASCULAR: ABDOMINAL AORTA: Calcific atherosclerotic change without aneurysm, dissection or stenosis. RIGHT LOWER EXTREMITY: - Common Iliac Arter y: Diseased but widely patent. - Internal Iliac Art floyd: Mild disease but widely patent. - External Iliac Art floyd: Mild to moderate disease but widely patent. - Common Femoral Art floyd: Calcific plaque but widely patent. - Profunda Femoral Artery: Widely patent. - Superficial Femora l Artery: Mild disease but with short 5 to 6 cm segment occlusion at the adductor canal. - Popliteal Artery: Widely patent. - Tibioperoneal Trun k: Widely patent - Posterior Tibial Artery: Extremely diseased and essentially occluded. Reconstitution distally. - Peroneal Artery: Widely patent. - Anterior Tibial Artery: Mild proximal disease but widely patent. LEFT LOWER EXTREMITY: - Common Iliac Arter y: Widely patent. - Internal Iliac Art floyd: Proximal disease but widely patent,. - External Iliac Art floyd: Severe focal stenosis distally just above the inguinal canal. - Common Femoral Art floyd: Patent. - Profunda Femoral Artery: Patent. - Superficial Femora l Artery: Occluded -Femoral-Popliteal Bypass Graft: Occluded. - Popliteal Artery: Reconstituted just above the knee joint and patent. - Tibioperoneal Trun k: Patent - Posterior Tibial Artery: Severe disease throughout and essentially occluded. - Peroneal Artery: M ild disease throughout but patent. - Anterior Tibial Artery: Mild disease proximally but widely patent. 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 The LANCE is widely patent. RENAL ARTERIES: Ther e are 2 renal arteries present bilaterally all of which are patent.. NONVASCULAR: Lung Bases: The visualized lung bases are unremarkable. Liver, Gallbladder a nd Biliary Tree: The liver is normal in size, shape, and attenuati on. No focal hepatic lesion or biliary ductal dilatation is presen t. The gallbladder contains some tiny layering gallstones but is otherwise unremarkable with no evidence of gallbladder wall thickening, or obvious pericholecystic inflammatory changes. Pancreas: Unremarkable. Spleen: Unremarkable. Adrenal Glands: Unremarkable. Kidneys and Ureters: The kidneys are normal in size, shape, and attenuation. No hydronephrosis, hydroureter, or calculi seen. No perinephric stranding. Bladder: Unremarkable. Gastrointestinal Tra ct: There are extensive sigmoid diverticula present without evidence of diverticulitis. The small and large bowel are otherwise unremarkab le. The appendix is unremarkable. Abdominal Wall: No significant hernia is appreciated. Lymph Nodes: No retroperitoneal adenopathy Pelvic Viscera: Ther e is mild BPH. Seminal vesicles appear normal. Osseous Structures: Unremarkable. Sclerosis is present in the sacrum adjacent to the SI j oint bilaterally, left greater than right. No bony destructive lesions. C T/CT angio abd aorta runoff IMPRESSION: 1. No significant ao rtic inflow disease. 2. On the right, the re is a short segment occlusion of the distal SFA with reconstituted popliteal with two-vessel runoff via the anterior tibial and peroneal arteries. 3. On the left, ther e is a focal severe stenosis in the distal external iliac arter y with an occluded andreafski SFA and femoral-popliteal bypass graft. The popliteal is reconstituted just above the knee joint with two-vessel runo ff via the anterior tibial and peroneal arteries. 4. Incidental nonvascular findings as described above including cholelithiasis, sigm oid diverticulosis and BPH. Dictated By: Hardeep Villeda MD Signed By: <Electronically signed by Hardeep Villeda MD in OV> 10/07/23 1314 DD/ 1203 TD/TT: Layboy Tender ist: SS Complete Blood Count Auto Di ff Reviewed date:10/25/2023 08:17:39 AM Interpretation: Performing Lab:[facility], [address] [place] [phone] Notes/Report: White Blood Count 3.4 4.8-10.8 X10*3/uL [...] Nitrogen Reviewed date:10/25/2023 08:17:39 AM Interpretation: Performing Lab:[facility], [address] [place] [phone] Notes/Report: Blood Urea Nitrogen 4 9-16 mg/dL Creatinine Reviewed date:10/25/2023 08:17:39 AM Interpretation: Performing Lab:[facility], [address] [place] [phone] Notes/Report: Creatinine 0.72 0.5-1.4 mg/dL Creatinine Clr Calc Pharmacy 111.2 eGFR (calculated from the MDRD study equation) and eCrCl (calculated from the Cockcroft-Gault equation) are based on different parameters and may not yield comparable results. If eCrCl result is absurd, please check patient's height/weight. Estimated Glomerular Filt Rate > 60 NOTE: For -Filipino individuals, multiply the result by 1.210. Chronic Kidney Disease: Estimated GFR < 60 mL/min/1.73m2 Severe Kidney Disease: Estimated GFR < 15 mL/min/1.73m2 Complete Blood Count no Diff Reviewed date:11/01/2023 08:04:51 AM Interpretation: Performing Lab:[facility], [address] [place] [phone] Notes/Report: White Blood Count 3.6 4.8-10.8 X10*3/uL [...] INR Reviewed date:11/01/2023 08:04:51 AM Interpretation: Performing Lab:[facility], [address] [place] [phone] Notes/Report: Prothrombin Time 11.6 11.1-13.3 SEC INTERNATIONAL [...] Time Reviewed date:11/01/2023 08:04:51 AM Interpretation: Performing Lab:[facility], [address] [place] [phone] Notes/Report: Partial Thromboplastin Time 30.0 26.0-36.8 SEC For information regarding the monitoring of direct thrombin inhibitors, please refer to Pharmacy. Basic Metabolic Panel Reviewed date:11/01/2023 08:04:51 AM Interpretation: Performing Lab:[facility], [address] [place] [phone] Notes/Report: Sodium 134 135-145 mmol/L Potassium 4.1 [...] Glomerular Filt Rate > 60 NOTE: For -Filipino individuals, multiply the result by 1.210. Chronic Kidney Disease: Estimated GFR < 60 mL/min/1.73m2 Severe Kidney Disease: Estimated GFR < 15 mL/min/1.73m2 Glucose Random 102 60-115 mg/dL Calcium 9.9 8.4-10.2 mg/dL Type and Screen Reviewed date:11/01/2023 08:04:51 AM Interpretation: Performing Lab:[facility], [address] [place] [phone] Notes/Report: witnessed by MORRISD NURSING: Call Blood Bank (ext. [phone]) to band patient on admission. Type and Screen in effect until 2300 on 11-02-2023 Blood Type AP Antibody Screen NEGATIVE Complete Blood Count no Diff Reviewed date:11/02/2023 04:00:19 PM Interpretation: Performing Lab:[facility], [address] [place] [phone] Notes/Report: White Blood Count 3.8 4.8-10.8 X10*3/uL [...] INR Reviewed date:11/02/2023 04:00:19 PM Interpretation: Performing Lab:[address] [phone] Notes/Report: Prothrombin Time 12.0 11.1-13.3 SEC INTERNATIONAL [...] Time Reviewed date:11/02/2023 04:00:19 PM Interpretation: Performing Lab:[address] [address] Notes/Report: Partial Thromboplastin Time 29.8 26.0-36.8 SEC For information regarding the monitoring of direct thrombin inhibitors, please refer to Pharmacy. Basic Metabolic Panel Reviewed date:11/02/2023 04:00:19 PM Interpretation: Performing Lab:[address] [address] Notes/Report: Sodium 136 135-145 mmol/L Potassium 4.3 [...] Glomerular Filt Rate > 60 NOTE: For -Filipino individuals, multiply the result by 1.210. Chronic Kidney Disease: Estimated GFR < 60 mL/min/1.73m2 Severe Kidney Disease: Estimated GFR < 15 mL/min/1.73m2 Glucose Random 104 60-115 mg/dL Calcium 9.9 8.4-10.2 mg/dL Pathology Reviewed date:11/06/2023 09:57:22 AM Interpretation: Performing Lab:[facility], [address] [place] [phone] Notes/Report: ---- Name: Sid Landeros Age/Sex: 62/M : 1960 Unit#: [id number] Attend Dr: Jhony Orr MD Re11/02/23 Status : DIS IN Location: .[facility] 262-1 Disch: 11/03/23 ---- SPEC : [id number] RECD: 11/02/23-0111 STATUS: FRANK GEE NUM: [id number] PILY: 11/02/23-[address]: Jhony Orr MD ENTERED: 11/02/23-13 19 SP TYPE: Surgical OTHR DR: Ashish Huertas MD ORDERED: Gross Micro L3 Diagnosis Thrombus, left fem-p op contents (thrombectomy):? Fibrin thrombus and blood. Clinical History Fem-pop occlusion Microscopic Description Microscopic sections reviewed. Material Received Left fem-pop contents Gross Description Received in formalin labeled ?left fem-pop contents? are 6 tubular cast fragments of edematous, mcbride-pink and pink-maroon thrombus ranging from 0.6-7.5 cm in length and each measuring 0.5 cm in diameter. Sectioning reveals homogeneous, pink-maroon cut surfaces. Utility Operator Yarn secti ons are submitted in a cassette labeled A1. CEDS Copies To: Ashish Huertas MD [address], [address] [place], [place] [id number] Jhony Orr MD [address] [place], [place] [address]Pa[place] [address] [place] [address] ---- Signed (signature on file) [place] 11/03/23 1634 ---- END OF REPORT COVID-19 ID NOW ([place]) Reviewed date:11/02/2023 04:00:19 PM Interpretation: Performing Lab:[facility], [address] [place] [address], [place] [address] Notes/Report: IDNOW Serial# [id number] COVID-19 Test Negative Negative COVID-19 Note See [...] with other viruses. Testing facilities within the [facility] and its territories are required to [...] by authorized laboratories. Testing performed on the [facility] NOW utilizing NAAT. FL guidance in OR Reviewed date:11/13/2023 08:46:13 AM Interpretation: Performing Lab: Notes/Report: [place] [address] Fluoroscopy Report Signed Patient: Sid Landeros MR#: [id number] : 1960 Acct:[id number] Age/Sex: 62 / M ADM Date: 11/02/23 Loc: [facility] 262-[address]: Jhony Orr MD Ordering Physician: Jhony Orr MD Date of Service: 11/02/23 Procedure(s): FL guidance in OR Accession Number(s): [id number] cc: Ashish Huertas MD; Jhony Orr MD [...] signed by Michaela Kwon MD in OV> 11/11/23739 DD/ 09 TD/TT: Mobility Scooter Repairer: [address] [address] Fluoroscopy Report Signed Patient: Marlo Landeros MR#: [id number] : 1960 Acct:[id number] Age/Sex: 62 / M ADM Date: 11/02/23 Loc: [facility] 262-[address]: Jhony Orr MD Ordering Physician: Jhony Orr MD Date of Service: 11/02/23 Procedure(s): FL guidance in OR Accession Number(s): [id number] cc: Ashish Huertas MD; Jhony Orr MD EXAMINATION: XR FLUOROSCOPY WITH IMAGES CLINICAL INFORMATION: Intraoperative fluoroscopy provided during angiography/intervention COMPARISON: None available. TECHNIQUE: Fluoroscopy Supervis ed By: Dr. Orr. Fluoroscopy Time: 5. 0 minutes Cumulative Dose: 9.6 9 mGy. DAP: 2.64 Gycm2. Images: 44. FINDINGS: Please refer to procedural note for full details. F L/FL guidance in OR IMPRESSION: Intraoperative fluoroscopy during angiography/intervention . Dictated By: Michaela Kwon MD Signed By: <Electronically signed by Michaela Kwon MD in OV> 11/11/23739 DD/ 1310 TD/TT: Mobility Scooter Repairer: Complete Blood Count Auto Di ff Reviewed date:11/06/2023 09:57:22 AM Interpretation: Performing Lab:[facility], [address] [place] [phone] Notes/Report: White Blood Count 6.7 4.8-10.8 X10*3/uL [...] Panel Reviewed date:11/06/2023 09:57:22 AM Interpretation: Performing Lab:[facility], [address] [place] [phone] Notes/Report: Sodium 134 135-145 mmol/L Potassium 3.6 [...] Glomerular Filt Rate > 60 NOTE: For -Filipino individuals, multiply the result by 1.210. Chronic Kidney Disease: Estimated GFR < 60 mL/min/1.73m2 Severe Kidney Disease: Estimated GFR < 15 mL/min/1.73m2 Glucose Random 123 60-115 mg/dL Calcium 9.1 8.4-10.2 mg/dL Phosphorus Reviewed date:11/06/2023 09:57:22 AM Interpretation: Performing Lab:[facility], [address] [place] [phone] Notes/Report: Phosphorus 3.4 2.7-4.5 mg/dL Magnesium Reviewed date:11/06/2023 09:57:22 AM Interpretation: Performing Lab:[facility], [address] [place] [phone] Notes/Report: Magnesium 1.8 1.6-2.6 mg/dL Albumin Level Reviewed date:11/06/2023 09:57:22 AM Interpretation: Performing Lab:[facility], [address] [place] [phone] Notes/Report: Albumin Level 4.0 3.5-5.0 g/dL XR thoracic spine 2V Reviewed date:01/31/2024 02:54:18 PM Interpretation: Performing Lab: Notes/Report: [address] [place] [address] XRay Report Signed Patient: Sid Landeros MR#: [id number] : 1960 Acct:[id number] Age/Sex: 63 / M ADM Date: 11/27/23 Loc: HO.XRAY Attending Dr: Ashish Huertas MD Ordering Physician: Ashish Huertas MD Date of Service: 11/30/23 Procedure(s): XR thoracic spine 2V Accession Number(s): [id number] cc: Ashish Huertas MD EXAMINATION: XR THORACIC [...] in OV> 11/30/23 1132 DD/ 0945 TD/TT: Mobility Scooter Repairer: [place] [address] XRay Report Signed Patient: Marlo Landeros MR#: [id number] : 1960 Acct:[id number] Age/Sex: 63 / M ADM Date: 11/27/23 Loc: HO.XRAY Attending Dr: Ashish Huertas MD Ordering Physician: Ashish Huertas MD Date of Service: 11/30/23 Procedure(s): XR thoracic spine 2V Accession Number(s): [id number] cc: Ashish Huertas MD EXAMINATION: XR THORACIC SPINE XR LUMBAR SPINE CLINICAL INFORMATION: Back pain. COMPARISON: 07/08/2019 and 09/18/2015 TECHNIQUE: AP, lateral and swimmer's views of the thoracic spine were obtained. AP, lateral and bilateral oblique views of the lumbar spine were obtained. FINDINGS: Thoracic spine: Ther e are 12 rib-bearing thoracic vertebral bodies. Normal sagittal alignment. Vertebral body heights are maintained. Multilevel ventral osteophytes. Pedicles are intact. Lumbar spine: There are 5 nonrib-bearing lumbar vertebral bodies. Minimal retrolisthes is of L2 on L3 unchanged from prior. Vertebral body heights are maintain ed. Intervertebral disc spaces are preserved. Facet hypertrophy at L3-L4 , L4-L5 and L5-S1. Sclerotic changes of the sacroiliac joints. Atherosclerotic changes of the abdominal aorta. X R/XR thoracic spine 2V IMPRESSION: No acute abnormality. Dictated By: Orestes Lennon MD Signed By: <Electronically signed by Orestes Lennon MD in OV> 11/30/23 1132 DD/ 0945 TD/TT: Mobility Scooter Repairer: KAI complete Reviewed date:02/20/2024 04:43:15 AM Interpretation: Performing Lab: Notes/Report: [address] [address] Ultrasound Report Signed Patient: Sid Landeros MR#: [id number] : 1960 Acct:[id number] Age/Sex: 63 / M ADM Date: 02/15/24 Loc: HO.US Attending Dr: Jhony Orr MD Ordering Physician: Jhony Orr MD Date of Service: 02/15/24 Procedure(s): US KAI complete Accession Number(s): [id number] cc: Ashish Huertas MD; Jhony Orr MD [...] in OV> 02/17/24 1435 DD/ 0928 TD/TT: Mobility Scooter Repairer: [place] [address] Ultrasound Report Signed Patient: Marlo Landeros MR#: [id number] : 1960 Acct:[id number] Age/Sex: 63 / M ADM Date: 02/15/24 Loc: .US Attending Dr: Jhony Orr MD Ordering Physician: Jhony Orr MD Date of Service: 02/15/24 Procedure(s): US KAI complete Accession Number(s): [id number] cc: Ashish Huertas MD; Jhony Orr MD EXAMINATION: Noninvasive assessme nt of the bilateral lower extremities with ARTERIAL DUPLEX and ANKLE BRACHIAL INDICES (ABIs). CLINICAL INFORMATION: Peripheral vascular disease with left femoropopliteal bypass graft TECHNIQUE: Duplex Doppler techniques with waveform analysis and measurement of velocities in the bilateral common femoral, profunda femoris, superficial femoral, popliteal and tibial arteries were performed. Additionally, ankle pulse volume recordings, ankle pressure measurements and ank le brachial indices were obtained of the lower extremity arterial system bilaterally. The study was performed only at rest. COMPARISON: 09/07/20 and 11/11/2022 FINDINGS: DIRECT DUPLEX DOPPLE R FINDINGS: RIGHT LEG: Common femoral arter y: 155 cm/s, phasicity: Triphasic Profunda femoris art floyd: 101 cm/s, phasicity: Biphasic Superficial femoral artery (proximal): 62.6 cm/s, phasicity: Biphasic Superficial femoral artery (mid): 32.4 cm/s, phasicity: Biphasic Superficial femoral artery (distal): 18 cm/s, phasicity: Monophasic Popliteal artery: 14 .6 cm/s, phasicity: Monophasic Posterior tibial art floyd: 25.5 cm/s, phasicity: Monophasic Peroneal artery: 19 cm/s, phasicity: Monophasic Anterior tibial tenisha ry: 58.7 cm/s, phasicity: Biphasic Dorsalis pedis arter y: Occluded LEFT LEG: Common femoral arter y: 115 cm/s, phasicity: Triphasic Profunda femoris art floyd: 83 cm/s, phasicity: Biphasic Femoropopliteal bypa ss graft, anastomosis: 228 cm/s, phasicity: Biphasic Femoropopliteal bypa ss graft (proximal): 102 cm/s, phasicity: Triphasic Femoropopliteal bypa ss graft (mid): 97 cm/s, phasicity: Triphasic Femoropopliteal bypa ss graft (distal): 85 cm/s, phasicity: Triphasic Femoropopliteal bypa ss graft, anastomosis: 98.3 cm/s, phasicity: triphasic Popliteal artery: 59 cm/s, phasicity: Triphasic Posterior tibial art floyd: 21.9 cm/s, phasicity: Biphasic Peroneal artery: 100 cm/s, phasicity: Triphasic Anterior tibial tenisha ry: 26.8 cm/s, phasicity: Biphasic Dorsalis pedis arter y: 32.7 cm/s, phasicity: Biphasic ANKLE-BRACHIAL INDEX: Right: 0.7, previous ly 0.87? Left: 1.06, previous ly 0.74 ANKLE PRESSURES: Right: PT 88, DP 108 Left: PT?164, DP?160 ANKLE PVR WAVEFORMS: Right: Abnormal Left: Normal U S/US KAI complete IMPRESSION: Right leg: Moderatel y decreased ankle brachial index. Dampened waveforms and decrea se velocities within the distal superficial femoral artery through the below-knee runoff vessels consistent with none visualized stenoses/occlusion Left leg: Normal ank le brachial index and arterial waveforms. Widely patent femoropoplite al bypass graft KAI Reference: - >1.4 = calcified vessels - 0.9 - 1.4 = normal - no significant arterial disease - 0.7 - 0.89 = mild peripheral arterial disease - 0.51 - 0.69 = mode rate peripheral arterial disease - ? 0.50 = severe peripheral arterial disease - < .30 = critical arterial disease Dictated By: Stanislav Roblero MD Signed By: <Electronically signed by Stanislav Roblero MD in OV> 02/17/24 1435 DD/ 0928 TD/TT: Mobility Scooter Repairer: US arterial duplex LE BI Reviewed date:02/20/2024 04:43:15 AM Interpretation: Performing Lab: Notes/Report: [address] [address] Ultrasound Report Signed Patient: Sid Landeros MR#: [id number] : 1960 Acct:[id number] Age/Sex: 63 / M ADM Date: 02/15/24 Loc: HO.US Attending Dr: Jhony Orr MD Ordering Physician: Jhony Orr MD Date of Service: 02/15/24 Procedure(s): US arterial duplex LE BI Accession Number(s): [id number] cc: Ashish Huertas MD; Jhony Orr MD [...] in OV> 02/17/24 1435 DD/ 0915 TD/TT: Mobility Scooter Repairer: [place] [address] Ultrasound Report Signed Patient: Marlo Landeros MR#: [id number] : 1960 Acct:[id number] Age/Sex: 63 / M ADM Date: 02/15/24 Loc: . Attending Dr: Jhony Orr MD Ordering Physician: Jhony Orr MD Date of Service: 02/15/24 Procedure(s): US arterial duplex LE BI Accession Number(s): [id number] cc: Ashish Huertas MD; Jhony Orr MD EXAMINATION: Noninvasive assessme nt of the bilateral lower extremities with ARTERIAL DUPLEX and ANKLE BRACHIAL INDICES (ABIs). CLINICAL INFORMATION: Peripheral vascular disease with left femoropopliteal bypass graft TECHNIQUE: Duplex Doppler techniques with waveform analysis and measurement of velocities in the bilateral common femoral, profunda femoris, superficial femoral, popliteal and tibial arteries were performed. Additionally, ankle pulse volume recordings, ankle pressure measurements and ank le brachial indices were obtained of the lower extremity arterial system bilaterally. The study was performed only at rest. COMPARISON: 09/07/20 and 11/11/2022 FINDINGS: DIRECT DUPLEX DOPPLE R FINDINGS: RIGHT LEG: Common femoral arter y: 155 cm/s, phasicity: Triphasic Profunda femoris art floyd: 101 cm/s, phasicity: Biphasic Superficial femoral artery (proximal): 62.6 cm/s, phasicity: Biphasic Superficial femoral artery (mid): 32.4 cm/s, phasicity: Biphasic Superficial femoral artery (distal): 18 cm/s, phasicity: Monophasic Popliteal artery: 14 .6 cm/s, phasicity: Monophasic Posterior tibial art floyd: 25.5 cm/s, phasicity: Monophasic Peroneal artery: 19 cm/s, phasicity: Monophasic Anterior tibial tenisha ry: 58.7 cm/s, phasicity: Biphasic Dorsalis pedis arter y: Occluded LEFT LEG: Common femoral arter y: 115 cm/s, phasicity: Triphasic Profunda femoris art floyd: 83 cm/s, phasicity: Biphasic Femoropopliteal bypa ss graft, anastomosis: 228 cm/s, phasicity: Biphasic Femoropopliteal bypa ss graft (proximal): 102 cm/s, phasicity: Triphasic Femoropopliteal bypa ss graft (mid): 97 cm/s, phasicity: Triphasic Femoropopliteal bypa ss graft (distal): 85 cm/s, phasicity: Triphasic Femoropopliteal bypa ss graft, anastomosis: 98.3 cm/s, phasicity: triphasic Popliteal artery: 59 cm/s, phasicity: Triphasic Posterior tibial art floyd: 21.9 cm/s, phasicity: Biphasic Peroneal artery: 100 cm/s, phasicity: Triphasic Anterior tibial tenisha ry: 26.8 cm/s, phasicity: Biphasic Dorsalis pedis arter y: 32.7 cm/s, phasicity: Biphasic ANKLE-BRACHIAL INDEX: Right: 0.7, previous ly 0.87? Left: 1.06, previous ly 0.74 ANKLE PRESSURES: Right: PT 88, DP 108 Left: PT?164, DP?160 ANKLE PVR WAVEFORMS: Right: Abnormal Left: Normal U S/US arterial duplex LE BI IMPRESSION: Right leg: Moderatel y decreased ankle brachial index. Dampened waveforms and decrea se velocities within the distal superficial femoral artery through the below-knee runoff vessels consistent with none visualized stenoses/occlusion Left leg: Normal ank le brachial index and arterial waveforms. Widely patent femoropoplite al bypass graft KAI Reference: - >1.4 = calcified vessels - 0.9 - 1.4 = normal - no significant arterial disease - 0.7 - 0.89 = mild peripheral arterial disease - 0.51 - 0.69 = mode rate peripheral arterial disease - ? 0.50 = severe peripheral arterial disease - < .30 = critical arterial disease Dictated By: Stanislav Roblero MD Signed By: <Electronically signed by Stanislav Roblero MD in OV> 02/17/24 1435 DD/ 0915 TD/TT: Mobility Scooter Repairer: Complete Blood Count Auto Di ff Reviewed date:05/15/2024 08:55:39 AM Interpretation: Performing Lab:[facility], [address] [place] [phone] Notes/Report: White Blood Count 6.6 4.8-10.8 X10*3/uL [...] 0.000 0.0-0.012 X10*3/uL Comprehensive Met. Panel Reviewed date:05/15/2024 08:55:39 AM Interpretation: Performing Lab:[address] [phone] Notes/Report: Sodium 132 135-145 mmol/L Potassium 3.8 [...] Glomerular Filt Rate > 60 NOTE: For -Filipino individuals, multiply the result by 1.210. Chronic [...] 119 39-117 U/L COVID-19 ID NOW ([place]) Reviewed date:05/15/2024 08:55:39 AM Interpretation: Performing Lab:[facility], [address] [place] [phone] Notes/Report: IDNOW Serial# [id number] COVID-19 Test Negative Negative COVID-19 Note See [...] with other viruses. Testing facilities within the [facility] and its territories are required to [...] by authorized laboratories. Testing performed on the [facility] NOW utilizing NAAT. Influenza A B2 ID NOW ([place] [facility]) Reviewed date:05/15/2024 08:55:39 AM Interpretation: Performing Lab:[facility], [address] [place] [phone] Notes/Report: IDNOW Serial# [id number] Influenza A Negative Negative Influenza B2 Negative Negative Influenza A B2 Note See Note The [employer] ID NOW Influenza A B2 test is [...] with Respiratory Syncytial Virus. XR chest 2V Reviewed date:05/15/2024 08:55:39 AM Interpretation: Performing Lab: Notes/Report: [address] [place] [address] XRay Report Signed Patient: Sid Landeros MR#: [id number] : 1960 Acct:[id number] Age/Sex: 63 / M ADM Date: 02/28/24 Loc: .ED Attending Dr: Ordering Physician: Generic ED Physician Date of Service: 02/28/24 Procedure(s): XR chest 2V Accession Number(s): [id number] cc: Ashish Huertas MD; Generic ED Physician [...] Agatha Patel MD in OV> 02/28/24817 DD/ 5 TD/TT: Mobility Scooter Repairer: [address] [address] XRay Report Signed Patient: Marlo Landeros MR#: [id number] : 1960 Acct:[id number] Age/Sex: 63 / M ADM Date: 02/28/24 Loc: .ED Attending Dr: Ordering Physician: Generic ED Physician Date of Service: 02/28/24 Procedure(s): XR [address] [facility] 2V Accession Number(s): [id number] cc: Ashish Huertas MD; Generic ED Physician EXAMINATION: XR CHEST CLINICAL INFORMATION: Shortness of breath COMPARISON: None available. TECHNIQUE: 2 views of the chest were obtained. FINDINGS: No significant abnormality is noted involving the heart, lungs, mediastinum, bony th orax or soft tissues. Degenerative changes of the thoracic spine. X R/XR chest 2V IMPRESSION: No evidence for acut e disease in the chest. Dictated By: Agatha Patel MD Signed By: <Electronically signed by Agatha Patel MD in OV> 02/28/24817 DD/ 5 TD/TT: Layboy Tender ist: [facility] Liver Panel Reviewed date:06/27/2024 06:04:41 AM Interpretation: Performing Lab:[facility], [address] [place] [phone] Notes/Report: Bilirubin Total 0.6 0.0-1.0 mg/dL Bilirubin Direct 0.3 0.0-0.5 mg/dL Aspartate Amino Transferase 40 5-37 U/L Alanine Aminotransferase 31 0-40 U/L Total Protein 7.8 6.5-8.0 g/dL Albumin Level 4.4 3.5-5.0 g/dL Alkaline Phosphatase 110 39-117 U/L Lipid Panel Reviewed date:06/27/2024 06:04:41 AM Interpretation: Performing Lab:[facility], [address] [place] [id number] Notes/Report: Triglycerides 39 <150 mg/dL Desirable Triglyceride: less than 150 mg/dL Borderline High Triglyceride 150-199 mg/dL High Triglyceride: 200-499 mg/dL Very High Triglyceride: greater than or equal to 5OO mg/dL Cholesterol 140 <200 mg/dL Desirable Cholesterol: less than 200 mg/dL Borderline High Cholesterol: 200-239 mg/dL High Cholesterol: greater than 239 mg/dL LDL Cholesterol Calculated 67 <100 mg/dL Desirable LDL: less than 100 mg/dL Near Optimal/Above Optimal LDL: 110-129 mg/dL Borderline High LDL: 130-159 mg/dL High LDL: 160-189 mg/dL Very High LDL: greater than or equal to 190 mg/dL HDL Cholesterol 66 >40 mg/dL Desirable HDL: greater than 40 mg/dL Note: This HDL assay may give artificially low results in patients with liver disease. Reason For Referral Reason low back pain left leg numbness eval and treatment Diagnosis 1 Numbness (R20.0) Diagnosis 2 Left low back pain, unspecified chronicity, unspecified whether sciatica present (M54.50) Referral Organization Ashish Huertas III, MD Referring Provider First Name Ashish Referring Provider Last Name Aleksandar Referring Provider Speciality Internal M edicine Referred Provider [facility] Referred Provider Specialty Physical Med icine [...] Provider Speciality Internal M edicine Ref[facility] Specialty Physical Med icitx General Notes CrumplerSharon 2023 10:21:00 AM EST > Faxed with Xrays, referral and progress note Referral Priority Routine Referral Appointment Date 12/21/2023 Medications Medication SIG (Take, Route, Frequency, Duration) Notes Start Date End Date Status Clopidogrel Bisulfate 75 MG 1 tablet Ora lly Once a day 08/02/2024 Active Mupirocin 2 % 1 application Personnel Technician ally Twice a day 11/20/2023 Active Rosuvastatin Calcium 20 MG 1 tablet Oral ly Once a day Active amLODIPine Besylate 10 MG as directed Or ally Once a day Active Symbicort 160-4.5 MCG/ACT 2 puffs Inhala tion Twice a day Active Ibuprofen 800 MG Oral Act henrry Pantoprazole Sodium 40 MG as directed Or [...] as directed Orally as directed 01/30/2023 Active Immunizations Vaccine Route Administration Date Status Comme nts Tdap Unknown 11/28/2013 Administered PPV 23 Unknown 10/04/2020 Administered COVID 19 Moderna Unknown 03/27/2021 Administered PPV 23 Unknown 09/29/2019 Administered Influenza, quad Unknown 07/25/2021 Administered COVID 19 Moderna Unknown 02/27/2021 Administered Social History Tobacco Use: Social History Observation [...] ast year? No Points 0 Interpretation Negative Problems Problem Type SNOMED Code ICD Code Onset Dates Problem Status W/U Status Risk Notes Problem 996083797 Overweight (E66.3) Active confirmed He is very slightly overweight.His BMI is 25.1. We discussed his diet and nutrition we made a plan to lose weight at a rate of one half of a pound per week. Problem Hypertension (26704340) Hypertension (I10) Active confirmed His blood pressure is 148/82. No change in his regimen was made. I encouraged him to pursue aggressive sodium restriction. He was given an appointment to come to the office and recheck his blood pressure. Problem [id number] Porphyria cutanea tarda (E80.1) Active confirmed The diagnosis o f porphyria was made by a director integrated at [facility]. He affirms that if he goes into direct sunlight. He will experience blisters and skin lesions. He is well versed in how to prevent this and has medications for his skin. Problem Benign prostatic hyperplasia (311599864) BPH (benign prostatic hyperplasia) (N40.0) Active confirmed He rises from sleep usually once a night occasionally twice. We have discussed lifestyle modifications he can make to reduce nocturia. Problem 08732074 Tobacco dependence (F17.200) Active confirmed He continues to smoke a package of cigarettes every day. We discussed the health consequences of this. His COPD has been stable and inactive recently. I made him aware of the smoking cessation programs and the local hospitals and this community. Problem COPD - Chronic obstructive pulmonary disease (74303293) COPD (chronic obstructive pulmonary disease) (J44.9) Active confirmed His breathing i s currently unimpaired. He denies any wheezing or shortness of breath with activities of daily life. He continues to smoke cigarettes, however. We discussed smoking cessation. I reviewed with him the importance of reducing and eliminating the use of tobacco. We have reviewed the health consequences of continued smoking, which include lung cancer, COPD, oxygen dependence, etc. Problem 96393009 Pilonidal cyst (L05.91) Active confirmed He had an excision and repair of this cyst years ago. It is healed and no longer bothers him. Problem 947208174 Peripheral arterial disease (I73.9) Active confirmed His claudicatio n has improved. He recently underwent a revision of his left femoral-poplitea l bypass graft. The wound is now healed. He experiences some claudication in his right leg and is able to walk one block without stopping to rest. Problem 076446423 Lumbar radiculopathy, right (M54.16) Active confirmed He continues to have pain that comes from his lower lumbar spine and right paravertebral muscles that radiates into his right buttock. X-rays have shown degenerative disease. The pain is aggravated with walking more than 10 feet and lifting more than 10 pounds. He has been referred to [facility] for physical therapy injections imaging and evaluation for surgery. Problem 06384087 Acute diffuse otitis externa of both ears (H60.313) Active confirmed The left ear wa s primarily involved. The otic canalWas uninvolved. The tympanic membrane was normal. A prescription for Bactrim was given to him. Vital Signs Heart Rate 87 /min 08/15/2024 Temperature 97.2 degrees Fahrenheit 08/15/2024 Blood pressure diastolic 80 mm Hg 08/15/2024 Height 70 in 08/15/2024 Blood pressure systolic 142 mm Hg 08/15/2024 Weight 174 lbs 08/15/2024 BMI 24.96 kg/m2 08/15/2024 Encounters Encounter Location Date Provider Diagnosis Ashish Huertas III, MD [address] [place] [address] [place] [id number] 09/23/2023 Ashish Huertas Tobacco dependence F17.200 ; Left low back pain, unspecified chronicity, unspecified whether sciatica present M54.50 ; Leg numbness R20.0 ; Hypertension I10 and BPH (benign prostatic hyperplasia) N40.0 Ashish Huertas III, MD [address] [place] [address] [place] [phone] 10/26/2023 Ashish Huertas Tobacco dependence F17.200 ; COPD (chronic obstructive pulmonary disease) J44.9 ; Hypertension I10 ; BPH (benign prostatic hyperplasia) N40.0 ; Peripheral arterial disease I73.9 ; Porphyria cutanea tarda E80.1 ; Lumbar radiculopathy, right M54.16 and Acute diffuse otitis externa of both ears H60.313 Ashish Huertas III, MD [address] [place] [address] [place] [id number] 11/17/2023 Ashish Huertas Tobacco dependence F17.200 ; COPD (chronic obstructive pulmonary disease) J44.9 ; Hypertension I10 ; Peripheral arterial disease I73.9 ; Acute diffuse otitis externa of both ears H60.313 ; Lumbar radiculopathy, right M54.16 and Porphyria cutanea tarda E80.1 Ashish Huertas III, MD [address] [place] [address] [place] [phone] 11/20/2023 Ashish Huertas Tobacco dependence F17.200 ; BPH (benign prostatic hyperplasia) N40.0 ; Hypertension I10 ; Peripheral arterial disease I73.9 ; Lumbar radiculopathy, right M54.16 ; Acute diffuse otitis externa of both ears H60.313 and Porphyria cutanea tarda E80.1 Ashish Huertas III, MD [address] [place] [address] [place] [id number] 11/27/2023 Ashish Huertas Tobacco dependence F17.200 ; Left low back pain, unspecified chronicity, unspecified whether sciatica present M54.50 ; Lumbar radiculopathy, right M54.16 ; Lumbar back pain M54.50 ; Hypertension I10 ; BPH (benign prostatic hyperplasia) N40.0 and Peripheral arterial disease I73.9 Ashish Huertas III, MD [address] [place] [address] [place] [id number] 01/20/2024 Ashish Huertas Tobacco dependence F17.200 ; Peripheral arterial disease I73.9 ; Hypertension I10 ; Lumbar radiculopathy, right M54.16 ; BPH (benign prostatic hyperplasia) N40.0 and Porphyria cutanea tarda E80.1 Ashish Huertas III, MD [address] [place] [address] [place] [id number] 02/09/2024 Ashish Huertas Tobacco dependence F17.200 ; Otitis of both ears H66.93 ; Peripheral arterial disease I73.9 ; BPH (benign prostatic hyperplasia) N40.0 ; Hypertension I10 and COPD (chronic obstructive pulmonary disease) J44.9 Ashish Huertas III, MD [address] [place] [address] [place] [id number] 02/19/2024 Ashish Huertas Tobacco dependence F17.200 ; COPD (chronic obstructive pulmonary disease) J44.9 ; Peripheral arterial disease I73.9 ; Lumbar radiculopathy, right M54.16 ; Acute diffuse otitis externa of both ears H60.313 ; Porphyria cutanea tarda E80.1 ; Hypertension I10 and Overweight E66.3 Ashish Huertas III, MD [address] [place] [address] [place] [id number] 04/29/2024 Ashish Huertas Tobacco dependence F17.200 ; Insect bite without infection W57.XXXA ; Hypertension I10 ; COPD (chronic obstructive pulmonary disease) J44.9 ; BPH (benign prostatic hyperplasia) N40.0 ; Peripheral arterial disease I73.9 ; Acute diffuse otitis externa of both ears H60.313 and Overweight E66.3 Ashish Huertas III, MD [address] [place] [address] [place] [id number] 05/23/2024 Ashish Huertas Tobacco dependence F17.200 ; BPH (benign prostatic hyperplasia) N40.0 ; Overweight E66.3 ; COPD (chronic obstructive pulmonary disease) J44.9 ; Hypertension I10 ; Peripheral arterial disease I73.9 ; Porphyria cutanea tarda E80.1 and Acute diffuse otitis externa of both ears H60.313 Ashish Huertas III, MD [address] [place] [address] [place] [id number] 08/02/2024 Ashish Huertas Infection of pelvis M86.9 ; Peripheral arterial disease I73.9 ; COPD (chronic obstructive pulmonary disease) J44.9 ; Lumbar radiculopathy, right M54.16 ; BPH (benign prostatic hyperplasia) N40.0 and Hypertension I10 Ashish Huertas III, MD [address] [place] [address] [place] [id number] 08/15/2024 Ashish Huertas Infection of pelvis M86.9 ; Hypertension I10 ; BPH (benign prostatic hyperplasia) N40.0 ; COPD (chronic obstructive pulmonary disease) J44.9 ; Peripheral arterial disease I73.9 and Lumbar radiculopathy, right M54.16 Ashish Huertas III, MD [address] [place] [address] [place] [id number] 09/08/2023 Ashish Huertas Tobacco dependence F17.200 Ashish Huertas III, MD [address] [place] [address] [place] [phone] 10/14/2023 Ashish Huertas III, MD [address] [place] [address] [place] [phone] 10/28/2023 Ashish Huertas III, MD [address] [place] [address] [place] [phone] 12/14/2023 Ashish Huertas III, MD [address] [place] [address] [place] [phone] 02/09/2024 Ashish Huertas III, MD [address] [place] [address] [place] [phone] 02/19/2024 Ashish Huertas III, MD [address] [place] [address] [place] [phone] 02/24/2024 Ashish Huertas III, MD [address] [place] [address] [place] [phone] 02/26/2024 Ashish Huertas III, MD [address] [place] [address] [place] [phone] 02/26/2024 Ashish Huertas III, MD [address] [place] [address] [place] [id number] 05/03/2024 Ashish Huertas Tobacco dependence F17.200 Ashish Huertas III, MD [address] [place] [address] [place] [phone] 05/19/2024 Ashish Huertas III, MD [address] [place] [address] [place] [phone] 07/01/2024 Ashish Huertas Assessments Encounter Date Diagnosis (ICD Code) Assessment [...] to undergo more x-rays at this time. 10/26/2023 Tobacco dependence (ICD-10 - F17.200) He [...] include lung cancer, COPD, oxygen dependence, etc. 11/17/2023 Tobacco dependence (ICD-10 - F17.200) He [...] the local hospitals and this community. 11/27/2023 Tobacco dependence (ICD-10 - F17.200) He [...] the pain in the left surgical incision 01/20/2024 Tobacco dependence (ICD-10 - F17.200) He [...] bypass graft. The wound is now healed 02/09/2024 Tobacco dependence (ICD-10 - F17.200) He [...] given an antibiotic with a follow-up visit. 02/19/2024 Tobacco dependence (ICD-10 - F17.200) He [...] include lung cancer, COPD, oxygen dependence, etc. 04/29/2024 Tobacco dependence (ICD-10 - F17.200) He continues to smoke a package of cigarettes every day. We discussed the health consequences of this. His COPD has been stable and inactive recently. I made him aware of the smoking cessation programs and the local hospitals and this community. 04/29/2024 Insect bite without infection (ICD-10 - W57.XXXA) The area will be observed without specific treatment. 05/23/2024 BPH (benign prostatic hyperplasia) (ICD-10 - N40.0) He rises from sleep usually once a night occasionally twice. We have discussed lifestyle modifications he can make to reduce nocturia. 05/23/2024 Tobacco dependence (ICD-10 - F17.200) He continues to smoke a package of cigarettes every day. We discussed the health consequences of this. His COPD has been stable and inactive recently. I made him aware of the smoking cessation programs and the local hospitals and this community. 08/02/2024 Peripheral arterial disease (ICD-10 - I73.9) His claudication has improved. He recently underwent a revision of his left femoral-popliteal bypass graft. The wound is now healed. He experiences some claudication in his right leg and is able to walk one block without stopping to rest. 08/02/2024 Infection of pelvis (ICD-10 - M86.9) He has an abscess in his perineal body on the left side. Reports that this drained pus last week which resulted in a marked improvement in the pain. There is still a small abscess there which is slightly painful. No opening in the skin was appreciated s 08/15/2024 Hypertension (ICD-10 - I10) His blood pressure is 148/82. No change in his regimen was made. I encouraged him to pursue aggressive sodium restriction. He was given an appointment to come to the office and recheck his blood pressure. 08/15/2024 Infection of pelvis (ICD-10 - M86.9) He had an abscess in his perineal body on the left side. It is now resolved 09/08/2023 Tobacco dependence (ICD-10 - F17.200) He has smoked a package of cigarettes per day for 40 years. He has known COPD. We discussed smoking cessation strategies. This current regimen was continued. 05/03/2024 Tobacco dependence (ICD-10 - F17.200) He continues to smoke a package of cigarettes every day. We discussed the health consequences of this. His COPD has been stable and inactive recently. I made him aware of the smoking cessation programs and the local hospitals and this community. 09/23/2023 Leg numbness (ICD-10 - R20.0) The numbness in the left leg, which he experiences with lying down is likely nerve compression in the lumbar spine. If it worsens. Images will be obtained. 10/26/2023 Hypertension (ICD-10 - I10) His blood pressure is currently stable at 132/80. No change in his regimen was made. I encouraged ab to puursue aggressive sodium restriction. 11/17/2023 Hypertension (ICD-10 - I10) His blood pressure is currently stable at 132/80. No change in his regimen was made. I encouraged ab to puursue aggressive sodium restriction. 11/20/2023 Hypertension (ICD-10 - I10) His blood pressure has been stable at 132/80. No change in his regimen was made. I encouraged him to pursue aggressive sodium restriction. 11/27/2023 Lumbar radiculopathy, right (ICD-10 - M54.16) The pain he describes as right hip pain comes struuctures above the hip joint which is painless on range of motion. 01/20/2024 Hypertension (ICD-10 - I10) His blood pressure has been stable at 132/80. No change in his regimen was made. I encouraged him to pursue aggressive sodium restriction. 02/09/2024 Peripheral arterial disease (ICD-10 - I73.9) His claudication has improved. He recently underwent a revision of his left femoral-popliteal bypass graft. The wound is now healed 02/19/2024 Peripheral arterial disease (ICD-10 - I73.9) His claudication has improved. He recently underwent a revision of his left femoral-popliteal bypass graft. The wound is now healed. He experiences some claudication in his right leg and is able to walk one block without stopping to rest. 04/29/2024 Hypertension (ICD-10 - I10) His most recent blood pressure was 147/66. No change in his regimen was made. I encouraged him to pursue aggressive sodium restriction.He was given an appointment to come to the office and recheck his blood pressure. 05/23/2024 Overweight (ICD-10 - E66.3) He is very slightly overweight.His BMI is 25.1. We discussed his diet and nutrition we made a plan to lose weight at a rate of one half of a pound per week. 08/02/2024 COPD (chronic obstructive pulmonary disease) (ICD-10 [...] lung cancer, COPD, oxygen dependence, etc. 08/15/2024 BPH (benign prostatic hyperplasia) (ICD-10 - N40.0) He rises from sleep usually once a night occasionally twice. We have discussed lifestyle modifications he can make to reduce nocturia. 09/23/2023 Hypertension (ICD-10 - I10) His blood pressure is currently stable at 132/80. No change in his regimen was made. I encouraged hiim to puursue aggressive sodium restriction. 10/26/2023 BPH (benign prostatic hyperplasia) (ICD-10 - N40.0) He rises from sleep once or twice a night to urinate. We have discussed lifestyle modification as a way to relieve nocturnal urinating. 11/17/2023 Peripheral arterial disease (ICD-10 - I73.9) He has had a successful revision of the left femoral-popliteal byypass graft with reconstitution of adequate perfusion of the left leg. 11/20/2023 Peripheral arterial disease (ICD-10 - I73.9) He has had a successful revision of the left femoral-popliteal byypass graft with reconstitution of adequate perfusion of the left leg. 11/27/2023 Lumbar back pain (ICD-10 - M54.50) This appears to be a muscular pain. He'll use heat and rest and ibuprofen and cut down on his small walking. 01/20/2024 Lumbar radiculopathy, right (ICD-10 - M54.16) The pain he describes as right hip pain comes struuctures above the hip joint which is painless on range of motion. 02/09/2024 BPH (benign prostatic hyperplasia) (ICD-10 - N40.0) He rises from sleep once or twice a night to urinate. We have discussed lifestyle modification as a way to relieve nocturnal urinating. 02/19/2024 Lumbar radiculopathy, right (ICD-10 - M54.16) He continues to have pain that comes from his lower lumbar spine and right paravertebral muscles that radiates into his right buttock. X-rays have shown degenerative disease. The pain is aggravated with walking more than 10 feet and lifting more than 10 pounds. He has been referred to [facility] for physical therapy injections imaging and evaluation for surgery. 04/29/2024 COPD (chronic obstructive pulmonary disease) (ICD-10 - [...] include lung cancer, COPD, oxygen dependence, etc. 05/23/2024 COPD (chronic obstructive pulmonary disease) (ICD-10 - [...] 10 pounds. He has been referred to [facility] for physical therapy injections imaging and evaluation for surgery. 08/15/2024 COPD (chronic obstructive pulmonary disease) (ICD-10 [...] lung cancer, COPD, oxygen dependence, etc. 09/23/2023 BPH (benign prostatic hyperplasia) (ICD-10 - N40.0) He rises from sleep once or twice a night to urinate. We have discussed lifestyle modification as a way to relieve nocturnal urinating. 10/26/2023 Peripheral arterial disease (ICD-10 - I73.9) He saw the vascular surgeon recently. His claudication has become worse lately in the left leg. A CT scan and an arteriogram have been done. Noninvasive procedure is planned. Whether this is surgery or angioplasty is unclear at the moment. 11/17/2023 Acute diffuse otitis externa of both ears (ICD-10 - H60.313) He will finish the doxycycline and then resume normal activities. Infection is resolving. 11/20/2023 Lumbar radiculopathy, right (ICD-10 - M54.16) This pain has now resolved. 11/27/2023 Hypertension (ICD-10 - I10) His blood pressure has been stable at 132/80. No change in his regimen was made. I encouraged him to pursue aggressive sodium restriction. 01/20/2024 BPH (benign prostatic hyperplasia) (ICD-10 - N40.0) He rises from sleep once or twice a night to urinate. We have discussed lifestyle modification as a way to relieve nocturnal urinating. 02/09/2024 Hypertension (ICD-10 - I10) His blood pressure has been stable at 132/80. No change in his regimen was made. I encouraged him to pursue aggressive sodium restriction. 02/19/2024 Acute diffuse otitis externa of both ears (ICD-10 - H60.313) He has had no further relief with new primary seen. An antibiotic was prescribed. 04/29/2024 BPH (benign prostatic hyperplasia) (ICD-10 - N40.0) He rises from sleep once or twice a night to urinate. We have discussed lifestyle modification as a way to relieve nocturnal urinating. 05/23/2024 Hypertension (ICD-10 - I10) His blood pressure is 140/82. No change in his regimen was made. I encouraged him to pursue aggressive sodium restriction. He was given an appointment to come to the office and recheck his blood pressure. 08/02/2024 BPH (benign prostatic hyperplasia) (ICD-10 - N40.0) He rises from sleep usually once a night occasionally twice. We have discussed lifestyle modifications he can make to reduce nocturia. 08/15/2024 Peripheral arterial disease (ICD-10 - I73.9) His claudication has improved. He recently underwent a revision of his left femoral-popliteal bypass graft. The wound is now healed. He experiences some claudication in his right leg and is able to walk one block without stopping to rest. 10/26/2023 Porphyria cutanea tarda (ICD-10 - E80.1) The diagnosis of porphyria was made by a director integrated at [facility]. He affirms that if he goes into direct sunlight. He will experience blisters and skin lesions. He is well versed in how to prevent this and has medications for his skin. 11/17/2023 Lumbar radiculopathy, right (ICD-10 - M54.16) This pain has now resolved. 11/20/2023 Acute diffuse otitis externa of both ears (ICD-10 - H60.313) He has improved. He will use mupirocin. 11/27/2023 BPH (benign prostatic hyperplasia) (ICD-10 - N40.0) He rises from sleep once or twice a night to urinate. We have discussed lifestyle modification as a way to relieve nocturnal urinating. 01/20/2024 Porphyria cutanea tarda (ICD-10 - E80.1) The diagnosis of porphyria was made by a director integrated at [facility]. He affirms that if he goes into direct sunlight. He will experience blisters and skin lesions. He is well versed in how to prevent this and has medications for his skin. 02/09/2024 COPD (chronic obstructive pulmonary disease) (ICD-10 [...] include lung cancer, COPD, oxygen dependence, etc. 02/19/2024 Porphyria cutanea tarda (ICD-10 - E80.1) The diagnosis of porphyria was made by a director integrated at [facility]. He affirms that if he goes into direct sunlight. He will experience blisters and skin lesions. He is well versed in how to prevent this and has medications for his skin. 04/29/2024 Peripheral arterial disease (ICD-10 - I73.9) His claudication has improved. He recently underwent a revision of his left femoral-popliteal bypass graft. The wound is now healed. He experiences some claudication in his right leg and is able to walk one block without stopping to rest. 05/23/2024 Peripheral arterial disease (ICD-10 - I73.9) His claudication has improved. He recently underwent a revision of his left femoral-popliteal bypass graft. The wound is now healed. He experiences some claudication in his right leg and is able to walk one block without stopping to rest. 08/02/2024 Hypertension (ICD-10 - I10) His blood pressure is 148/82. No change in his regimen was made. I encouraged him to pursue aggressive sodium restriction. He was given an appointment to come to the office and recheck his blood pressure. 08/15/2024 Lumbar radiculopathy, right (ICD-10 - M54.16) He continues to have pain that comes from his lower lumbar spine and right paravertebral muscles that radiates into his right buttock. X-rays have shown degenerative disease. The pain is aggravated with walking more than 10 feet and lifting more than 10 pounds. He has been referred to [facility] spine and sports rehabilitation medicine for physical therapy injections imaging and evaluation for surgery. 10/26/2023 Lumbar radiculopathy, right (ICD-10 - M54.16) This pain has now resolved. 11/17/2023 Porphyria cutanea tarda (ICD-10 - E80.1) The diagnosis of porphyria was made by a director integrated at [facility]. He affirms that if he goes into direct sunlight. He will experience blisters and skin lesions. He is well versed in how to prevent this and has medications for his skin. 11/20/2023 Porphyria cutanea tarda (ICD-10 - E80.1) The diagnosis of porphyria was made by a director integrated at [facility]. He affirms that if he goes into direct sunlight. He will experience blisters and skin lesions. He is well versed in how to prevent this and has medications for his skin. 11/27/2023 Peripheral arterial disease (ICD-10 - I73.9) He has had a successful revision of the left femoral-popliteal byypass graft with reconstitution of adequate perfusion of the left leg. 02/19/2024 Hypertension (ICD-10 - I10) His most recent blood pressure was 147/66. No change in his regimen was made. I encouraged him to pursue aggressive sodium restriction.He was given an appointment to come to the office and recheck his blood pressure. 04/29/2024 Acute diffuse otitis externa of both ears (ICD-10 - H60.313) The left ear was primarily involved. The otic canalWas uninvolved. The tympanic membrane was normal. A prescription for Bactrim was given to him. 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 He affirms that if he goes into direct sunlight. He will experience blisters and skin lesions. He is well versed in how to prevent this and has medications for his skin. 10/26/2023 Acute diffuse otitis externa of both ears (ICD-10 - H60.313) He will finish the doxycycline and then resume normal activities. Infection is resolving. 02/19/2024 Overweight (ICD-10 - E66.3) He is slightly overweight. I recommended stabilizing his weight at this level and consume a healthy diet. He is currently disabled and unable to exercise. 04/29/2024 Overweight (ICD-10 - E66.3) He is slightly overweight. I recommended stabilizing his weight at this level and consume a healthy diet. He is currently disabled and unable to exercise. 05/23/2024 Acute diffuse otitis externa of both ears (ICD-10 - H60.313) The left ear was primarily involved. The otic canalWas uninvolved. The tympanic membrane was normal. A prescription for Bactrim was given to him. Plan Of Treatment Pending Test Test Name Order Date PROFILE, FASTING (COMPREHENSIVE METABOLI C) 09/23/2023 PROFILE, FASTING (COMPREHENSIVE METABOLI C) 01/15/2023 PROFILE, FASTING (COMPREHENSIVE METABOLI C) 05/23/2024 PROFILE, FASTING (COMPREHENSIVE METABOLI C) 09/15/2022 LIPID PANEL 01/15/2023 LIPID PANEL 09/15/2022 PSA, TOTAL 09/23/2023 PSA, TOTAL 05/23/2024 PSA, TOTAL 01/15/2023 PSA, TOTAL 09/15/2022 CBC w DIFF 09/23/2023 CBC w DIFF 01/15/2023 CBC w DIFF 09/15/2022 XR LUMBAR SPINE 09/23/2023 VITAMIN D 25-OH TOTAL 09/15/2022 CBC WITH AUTO DIFF 05/23/2024 Lipid Panel 09/23/2023 Lipid Panel 05/23/2024 XR thoracic spine 3V 11/27/2023 Routine Culture 02/09/2024 Next Appt Details Provider Name:Ashish Huertas, 09/26/2024 09:30:00 AM, [address] [place] [address] [address] SE[address], [place], [address], Insurance Providers Payer Name Payer Address Payer Phone Subscriber Number Group Number Insured Name Patient Relationship to Insured Coverage Start Date Coverage End Date [facility] [address] [place], [place] [phone] [id number] Sid Landeros Self - patient is the insured [address] [place] [address] [id number] Sid Landeros Self - patient is the insured Medical (General) History Medical History History ICD Code COPD (chronic obstructive pulmonary dise ase) J44.9 Hypertension I10 Erectile dysfunction Peripheral vascular disease Environmental allergies History of repaired pilonidal cyst Excised lipoma, left triceps, age 8 Porphyria cutanea [place], Dr. Brady, [facility] Tobacco dependence Covid19 infection 2021 Lumbar radiculopathy {'Porphyria': 'No current is sues', 'Infection on backside': 'Resolved with antibiotics'} Surgical History Surgery Date(Month/Year) Femoral -popliteal arterial bypass @[facility] [place] 05/2022 Esophagogastricduodoscopy Excision of lipoma, left triceps, age 8 Repair of pilonidal cyst Fracture of 2 fingers Colonoscopy, [facility], Dr. Ramos Arterial Bipass 05/2022 No history Hospitalization History Reason Date(Month/Year) No history
--- OUTSIDE RECORDS SUMMARY | 2024-09-07 21:19 | XMS_ITS ---
Author Organization Ashish Huertas III, MD Address [address] [place] [address] [place] [address] Care Team Providers Care Ip Network Architect Name Role Phone Ashish Huertas Primary Care Provider Medications Medication SIG (Take, Route, Frequency, Duration) Notes Start Date End Date Status Pantoprazole Sodium 40 MG 1 tablet Orall y Once a day for 90 days 07/01/2024 Active Social History Sex Assigned At : Social History Observation Description Sex Assigned At Male Encounters Encounter Location Date Provider Diagnosis Ashish Huertas III, MD [address] [place] [address] [place] [address] 07/01/2024 Ashish Huertas Plan Of Treatment Medication Medication Name Sig Start Date Stop Date Notes Pantoprazole Sodium 40 MG 1 tablet Orall y Once a day for 90 days 07/01/2024 Next Appt Details Provider Name:Ashish Huertas, 09/26/2024 09:30:00 AM, [address] [place] [address] [place], [address], Progress Notes * Sid LANDEROS MDOB: 2 (63 yo M)Acc No.[id number]:07/01/2024 Patient:?Sid LANDEROS :1960???Age:63 Y???Sex:Male Address:[place], [address] * Refills? Start Pantoprazole Sodium Tablet Delayed Release, 40 MG, Orally, 90 Tablet, 1 tablet, Once a day, 90 days, Refills=3 * true * Date:? Generated for Vanessa rodriguez/Namita/Reyitting on:?09/07/2024 09:18 PM EST
== END 2024-09-06 13:31 | disposition home or self-care (01) ==
PROVIDERS: PCP Internal Medicine Medical Oncology; Visit Provider Surgery Vascular Surgery
DX: I73.9 Peripheral vascular disease, unspecified (principal)
CPT/HCPCS: 99214

== ENCOUNTER → 2024-09-06 12:58 | Outpatient (BNVA) | payer BC, OTHER, SELFPAY | PROVIDERS: PCP Internal Medicine Medical Oncology; Visit Provider Surgery Vascular Surgery ==

== ENCOUNTER 2024-10-03 14:27 | Outpatient (AMB) | payer BC, OTHER, SELFPAY ==
--- NOTE | 2024-10-03 14:37 | MHC.OFFVIS ---
Vital Signs 10/03/24 14:38 Height 5 ft 10 in Weight 176 lb 5.917 oz BMI 25.3 BP 132/78 Blood Pressure Location Lt brachial Position Sitting Pulse 97 Pulse Source Pulse Oximeter Pulse Oximetry (%) 95 Oxygen Delivery Method Room Air Intake Visit Reasons: Dyspnea Intake Note: pt is here for follow up and was in urgent care on Thursday, and put on prednisone and zpak, but zpak does not work for him, can something else be tried, and also has a very hard cough, and would like some cough syrup. Store Mgr Required: No Allergies doxycycline Allergy (Verified 10/03/24 15:17) Hives nabumetone Adverse Reaction (Unknown, Verified 10/03/24 15:17) green stools Medication List - Last Reconciled 10/03/24 by Natalie Lino MD amlodipine 10 mg PO DAILY 90 days aspirin (Adult Aspirin Regimen) 81 mg PO DAILY budesonide-formoterol 160-4.5 mcg/actuation (Symbicort) 2 puffs inhalation BID 90 days clopidogrel 75 mg PO DAILY ibuprofen 800 mg PO Q8H PRN 90 days ipratropium-albuterol 20-100 mcg/actuation (Combivent Respimat) 1 puff inhalation Q6H PRN 90 days pantoprazole 40 mg PO DAILY rosuvastatin 20 mg PO DAILY sildenafil 100 mg PO DAILY PRN Do you need a note to return to daycare/school/sports/work: No HPI HPI Dyspnea: Details: MR. WHYTE , IS HERE FOR FOLLOW-UP. HOWEVER HE HAS BEEN SUFFERING FROM UPPER RESPIRATORY INFECTION IN THE PAST 1 WEEK. HE WAS SEEN AT URGENT CARE CLINIC OVER THE WEEKEND AND PRESCRIBED PREDNISONE WELL A COURSE OF Z-CESIA. HE STILL CONTINUES TO HAVE COUGH WHEEZING AND FEELS MORE SHORT OF BREATH. DENIES FEVER OR CHILLS. HIS ALSO CONTRACTED THE SAME SYMPTOMS AND SHE WAS ALSO SEEN AT URGENT CARE CLINIC, THEY BOTH HAVE CUT DOWN THE CIGARETTES TO 5 A DAY, IS MAIN ISSUE AT THIS TIME IS ONGOING COUGH AND FEELING CONGESTED. HE TELLS ME THAT HE DOES NOT DO WELL WITH Z-CESIA, HE ALSO CAN NOT. USE DOXYCYCLINE HE USUALLY HAS TO BE TREATED WITH AUGMENTIN. ALSO HIS COUGH IS VERY BOTHERSOME ESPECIALLY AT NIGHT,. IN THE PAST HE HAS BEEN PRESCRIBED COURSES OF THE GUAIFENESIN WITH CODEINE. THAT IS WHAT HE IS REQUESTING AT THIS TIME. [facility] Medical History Abnormal LFTs ETOH abuse Hereditary hemochromatosis Atherosclerotic cardiovascular disease Bilateral carotid artery stenosis PAD (peripheral artery disease) Murmur HTN (hypertension) Hyperlipidemia COPD (chronic obstructive pulmonary disease) SOB (shortness of breath) Allergic rhinitis Nicotine dependence, cigarettes, uncomplicated GERD (gastroesophageal reflux disease) Tubular adenoma of colon Porphyria cutanea tarda Arthritis Surgical History History of femoropopliteal bypass History of femoropopliteal bypass (11/02/23) S/P angiogram of extremity History of colonoscopy History of esophagogastroduodenoscopy History of lipoma History of skin graft History of removal of cyst History of foot surgery Family History Father Diabetes Stroke Hypertension Mother Chronic mental illness Family/Other FH: mental illness Social History Household Members: Spouse Housing: House Are you a primary critical care rn to a significant other at home: No Do you presently have visiting nurse or other home services: No 75 years or older and lives alone: No Alcohol intake: current Alcohol intake frequency: a few times a month Alcohol type: beer Comment: residual pain in left foot, but much improved and tolerable per patient. 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 occupational exposures/hazards: No Cognitive needs: No Hearing needs: No Vision needs: Yes Review of Systems Const All systems reviewed & are unremarkable except as noted in HPI and below Eyes Reports no additional complaints ENT Reports no additional complaints Card Denies chest pain, Denies irregular heart rhythm and Denies leg edema Resp Reports as per HPI GI Reports no additional complaints Reports erectile dysfunction Musc Reports no additional complaints Skin/Breast Reports system reviewed and no additional complaints, except as documented Neuro Reports no additional complaints Psych Reports no additional complaints Endo Reports no additional complaints Terrell/Lymph Reports other (h/o polycythemia ) Physical Exam Vital Signs: Last Vital Signs Pulse 97 10/03/24 14:38 BP 132/78 10/03/24 14:38 Pulse Ox 95 10/03/24 14:38 Oxygen Delivery Method Room Air 10/03/24 14:38 BMI result Body Mass Index 25.3 Const General: comfortable, no acute distress, alert and awake Orientation/consciousness: patient oriented x3 HEENT Head: Yes normal to inspection General nose exam: No nasal polyps present, No nasal discharge present and Other nasal findings present (MODERATE AMOUNT OF NASAL CONGESTION ESPECIALLY IN LEFT NARE ) Face and sinus: Yes sinuses nontender Mouth: oropharynx normal Throat: Yes posterior oropharynx normal Eyes General: appearance normal, both eyes and all related structures Neck Neck: Yes normal visual inspection, Yes no lymphadenopathy, Yes trachea midline and Yes no JVD Thyroid: Thyroid normal Chest Chest palpation & inspection: normal inspection of the chest, normal palpation of entire chest wall and no tenderness Resp Other: Percussion note resonant, breath sounds are distant with prolonged expiratory phase. He has inspiratory and expiratory wheezes scattered on both sides. Cardio Palpation: normal PMI Rate: regular rate Rhythm: regular rhythm Heart sounds: no gallops and no murmurs GI Palpation (GI): Soft to palpation, nontender, No hepatosplenomegaly present and no masses Auscultation: normal bowel sounds Back/Spine/Pelvis Thoracic/Lumbar Spine: thoracic and lumbar spine normal to inspection Skin General skin exam: no rashes or lesions noted Neuro General: patient oriented x3 and no focal motor deficits Cranial nerves: Yes CN's II-XII intact bilaterally Extrem General: Yes normal to inspection, Yes no clubbing, cyanosis or edema and Yes no calf tenderness Psych Appearance: grossly normal and well kempt Speech and movement: Normal speech and movement present Results Reviewed Results Reviewed: He tells me that at the urgent care he had chest x-ray at [facility] which was negative. His test for COVID and RSV was also negative . Assessment & Plan Assessment & Plan (1) COPD (chronic obstructive pulmonary disease): Comment: COPD is moderately severe, secondary to smoking, Is relatively stable at this time, but he becomes symptomatic when doing any heavy physical work. AT PRESENT HE HAS AN ACUTE EXACERBATION PROBABLY DUE TO NONSPECIFIC VIRAL ACUTE INFECTION. CONTINUES TO HAVE COUGH WHICH IS QUITE BOTHERSOME . Code(s): J44.9 - Chronic obstructive pulmonary disease, unspecified Category: Medical Qualifiers: COPD type: chronic bronchitis Chronic bronchitis type: simple Qualified Code(s): J41.0 - Simple chronic bronchitis Plan: CONTINUE USING SYMBICORT 160-4.52 PUFFS B.I.D.. COMBIVENT RESPIMAT 1 INHALATION Q 4-6 HOURS P.R.N. ALBUTEROL SOLUTION IN THE NEBULIZER Q 4-6 HOURS P.R.N.. PATIENT HAS AN OLD NEBULIZER AT HOME WILL LIKE TO GET A NEW 1 FOR WHICH THE ORDERS ARE BEING SENT. COURSE OF AUGMENTIN 500 T.I.D. FOR 1 WEEK. GUAIFENESIN WITH CODEINE SYRUP 1 TSP Q.6 HOURS P.R.N.. (2) Allergic rhinitis: Comment: (Allergic Rhinitis on top of COPD - gets increased nasal congestion when outdoors) Code(s): J30.9 - Allergic rhinitis, unspecified Category: Medical Plan: OK TO USE FLONASE-52 SPRAY EACH NOSTRIL DAILY (3) Nicotine dependence, cigarettes, uncomplicated: Comment: (current smoker, onset 17yo, 1ppd x 46yrs, had cut it down to few cigarettes a day but now in the past few months has gone back to 1 pack a day, He is trying to cut down the number of cigarettes and claims that he is down to 5 cigarettes a day. Code(s): F17.210 - Nicotine dependence, cigarettes, uncomplicated Category: Medical Plan: Urge to quit smoking completely. Questioned about use of Nicotrol and I told him it is okay to use if it would help him to cut down on the smoking. (4) Bronchitis: Comment: Does have acute bronchitis causing cough and congested feeling. Code(s): J40 - Bronchitis, not specified as acute or chronic Category: Medical Plan: Augmentin-500 mg t.i.d. for 1 week. Use steam inhalation 2 or 3 times a day Medications: New amoxicillin-pot clavulanate 500-125 mg (Augmentin) 1 tab PO TID 1 week 21 tabs 0RF bronchitis codeine-guaifenesin 10-100 mg/5 mL 10 mL PO Q4-6H 1 week PRN 200 mL 1RF cough Coding Level of Care Code Est Pt Level 3 (72718) Diagnoses Simple chronic bronchitis J41.0 COPD type: chronic bronchitis Chronic bronchitis type: simple Allergic rhinitis J30.9 Nicotine dependence, cigarettes, uncomplicated F17.210 Bronchitis J40
[2024-10-03 14:38] VITALS: BP 132/78; PULSE 97; O2SAT 95; BMI 25.3
--- OUTSIDE RECORDS SUMMARY | 2024-10-03 16:48 | XMS_ITS ---
Author Organization Ashish Huertas III, MD Address [address] [facility] [place] [address] Care Team Providers Care Washroom Attendant Name Role Phone Ashish Huertas Primary Care Provider Allergies Allergen (clinical drug ingredient) Drug/Non Drug [...] 08/02/2024 Active Mupirocin 2 % 1 application Industrial Services Worker ally Twice a day 11/20/2023 Active Symbicort [...] Date Provider Diagnosis Ashish Huertas III, MD [address] [place] [address] [place] [address] 08/15/2024 Ashish Huertas Infection of pelvis M86.9 [...] 10 pounds. He has been referred to [facility] spine and sports rehabilitation medicine for physical therapy injections imaging and evaluation for surgery. Plan Of Treatment Medication Medication Name Sig Start Date Stop Date Notes Clopidogrel Bisulfate 75 MG 1 tablet Orally Once a day 01/2024 Mupirocin 2 % 1 application Industrial Services Worker ally Twice a day 11/20/2023 Symbicort 160-4.5 [...] Reason: OV, Routine check-up Provider Name:Ashish Huertas, 10/28/2024 01:30:00 PM, [address] [place] [address] DR [facility] [place], [place], [address], Progress Notes * Sid LANDEROS MDOB: 2 (63 yo M)Acc No.[id number]:08/15/2024 Progress Notes Patient:?Sid LANDEROS Provider:?Ashish Huertas MD :1960???Age:63 Y???Sex:Male Danny e:08/15/2024 Address:[address] [place] [address], [id number] Subjective: * Chief Complaints: * ???COPDHypertensionBPHPVDTob acco [...] * Surgical History:?Femoral -p opliteal arterial bypass @[facility] [place] 05/2022Esophagogastricduodoscopy Excision of lipoma, left triceps, age 8 Repair of pilonidal cyst Fracture of 2 fingers Colonoscopy, [facility], Dr. Ramos Arterial Bipass 05/2022No history [...] 1.0 - mg/dL?Bilirubin Direct0.30.0-0.5 - mg/dL?Aspartate Amino Vtdyzzvjbdq45K4-92 - U/L?Alanine Uipldpawrgyykrpp098-95 - U/L ?Total Protein7.86.5-8.0 - g/dL?Albumin Level4.43.5-5.0 - g/dL ?Alkaline [id number] - U/L * Examination: ???General Examination: ?GENERAL [...] 10 pounds. He has been referred to [facility] spine and sports rehabilitation medicine for [...] Huertas MD Date:?07/29 Generated for Vanessa rodriguez/Namita/eTransmitting on:?10/03/2024 04:47 PM EST History and Physical Notes * [...]
--- OUTSIDE RECORDS SUMMARY | 2024-10-03 16:48 | XMS_ITS ---
Author Organization Ashish Huertas III, MD Address [address] [facility] [place] [address] Care Team Providers Care Desulfurizer Hand Name Role Phone Ashish Huertas Primary [...] day Active Mupirocin 2 % 1 application Customer Advisor Specialist ally Twice a day 11/20/2023 Active traMADol [...] Date Provider Diagnosis Ashish Huertas III, MD [address] [place] [address] [place] [address] 08/02/2024 Ashish Huertas Infection of pelvis M86.9 [...] 10 pounds. He has been referred to [facility] spine and sports rehabilitation medicine for [...] a day Mupirocin 2 % 1 application Customer Advisor Specialist ally Twice a day 11/20/2023 traMADol HCl [...] Check-up for abscess on backside Provider Name:Ashish Aleksandar, 10/28/2024 01:30:00 PM, [address] [place] [address] JENN[address] SE[address], [place], [address], Progress Notes * Sid LANDEROS MDOB: 2 (63 yo M)Acc No.[id number]:08/02/2024 Progress Notes Patient:?Sid LANDEROS Provider:?Ashish Huertas MD :1960???Age:63 Y???Sex:Male Danny e:08/02/2024 Address:[address] [place] [address] [place], [id number] Subjective: * Chief Complaints: * ???Abscess in [...] * Surgical History:?Femoral -p opliteal arterial [place] [place]Esophagogastricduodoscopy Excision of lipoma, left triceps, age [...] 10 pounds. He has been referred to [facility] spine and sports rehabilitation medicine for [...] Huertas MD Date:?01/2024 Generated for Elmeri michael/Namita/eTransmitting on:?10/03/2024 04:48 PM EST History and Physical Notes * [...]
--- OUTSIDE RECORDS SUMMARY | 2024-10-03 16:48 | XMS_ITS | Patient Health Record ---
Author Organization Ashish Huertas III, MD Address [address] [facility] [place] [address] Care Team Providers Care Resident Care Spec Name Role Phone Ashish Huertas Primary Care Provider Allergies Allergen (clinical drug ingredient) Drug/Non Drug Allergy documented on EMR Reaction Allergy Type Onset Date Status doxycycline Doxycycline Unknown Drug Allergy Act henrry Results Component Value Reference Range Notes XR lumbar spine 4V min Reviewed date:01/31/2024 02:54:18 PM Interpretation: Performing Lab: Notes/Report: [address] [address] XRay Report Signed Patient: Sid Landeros MR#: [id number] : 1960 Acct:[id number] Age/Sex: 63 / M ADM Date: 11/27/23 Loc: HO.XRAY Attending Dr: Ashish Huertas MD Ordering Physician: Ashish Huertas MD Date of Service: 11/30/23 Procedure(s): XR lumbar spine 4V min Accession Number(s): [id number] cc: Ashish Huertas MD EXAMINATION: XR THORACIC [...] in OV> 11/30/23 1132 DD/ 0945 TD/TT: Fashion Journalist: [address] [address] XRay Report Signed Patient: Marlo Landeros MR#: [id number] : 1960 Acct:[id number] Age/Sex: 63 / M ADM Date: 11/27/23 Loc: HO.XRAY Attending Dr: Ashish Huertas MD Ordering Physician: Ashish Huertas MD Date of Service: 11/30/23 Procedure(s): XR lum bar spine 4V min Accession Number(s): [id number] cc: Ashish Huertas MD EXAMINATION: XR THORACIC [...] in OV> 11/30/23 1132 DD/ 0945 TD/TT: Fashion Journalist: Creatinine GFR POC Reviewed date:10/12/2023 08:41:12 AM Interpretation: Performing Lab:[facility], [address] [place] [address] Notes/Report: [phone] .63 >60 1131 HO.BERCHB Creatinine POC 0.6 0.5-1.4 mg/dL GFR POC > 60 Chronic Kidney Disease: Estimated GFR < 60 mL/min/1.73m2 Severe Kidney Disease: Estimated GFR < 15 mL/min/1.73m2 CT angio abd aorta runoff Reviewed date:10/07/2023 04:23:32 PM Interpretation: Performing Lab: Notes/Report: [facility] [address] [place] [address] CT Scan Report Signed Patient: Sid Landeros MR#: [id number] : 1960 Acct:[id number] Age/Sex: 62 / M ADM Date: 10/07/23 Loc: HO.CT Attending Dr: Jhony Orr MD Ordering Physician: Jhony Orr MD Date of Service: 10/07/23 Procedure(s): CT angio abd aorta runoff Accession Number(s): [id number] cc: Ashish Huertas MD; Jhony Orr MD [...] from the initial data set by the [facility] under concurrent physician supervision. [...] distal external iliac artery with an occluded [place] SFA and femoral-popliteal bypass graft. The popliteal is reconstituted just above the knee joint with two-vessel runoff via the anterior tibial and peroneal arteries. 4. Incidental nonvascular findings as described above including cholelithiasis, sigmoid diverticulosis and BPH. Dictated By: Hardeep Villeda MD Signed By: <Electronically signed by Hardeep Villeda MD in OV> 10/07/23 1314 DD/ 1203 TD/TT: Fashion Journalist: [address] [address] [address] Scan Report Signed Patient: Marlo Landeros MR#: [id number] : 1960 Acct:[id number] Age/Sex: 62 / M ADM Date: 10/07/23 Loc: HO.CT Attending Dr: Jhony Orr MD Ordering Physician: Jhony Orr MD Date of Service: 10/07/23 Procedure(s): CT ang io abd aorta runoff Accession Number(s): [id number] cc: Ashish Huertas MD; Jhony Orr MD [...] from the initial data set by the [facility] under concurrent physician supervision. [...] external iliac arter y with an occluded [place] SFA and femoral-popliteal bypass graft. The popliteal is reconstituted just above the knee joint with two-vessel runo ff via the anterior tibial and peroneal arteries. 4. Incidental nonvascular findings as described above including cholelithiasis, sigm oid diverticulosis and BPH. Dictated By: Hardeep Villeda MD Signed By: <Electronically signed by Hardeep Villeda MD in OV> 10/07/23 1314 DD/ 1203 TD/TT: In Store Demonstrator ist: SS Complete Blood Count Auto Di ff Reviewed date:10/25/2023 08:17:39 AM Interpretation: Performing Lab:[facility], [address] [place] [phone] Notes/Report: White Blood Count 3.4 4.8-10.8 X10*3/uL [...] Nitrogen Reviewed date:10/25/2023 08:17:39 AM Interpretation: Performing Lab:[address] [address] Notes/Report: Blood Urea Nitrogen 4 9-16 mg/dL Creatinine Reviewed date:10/25/2023 08:17:39 AM Interpretation: Performing Lab:[address] [address] Notes/Report: Creatinine 0.72 0.5-1.4 mg/dL Creatinine Clr Calc Pharmacy 111.2 eGFR (calculated from the MDRD study equation) and eCrCl (calculated from the Cockcroft-Gault equation) are based on different parameters and may not yield comparable results. If eCrCl result is absurd, please check patient's height/weight. Estimated Glomerular Filt Rate > 60 NOTE: For -Greenlandic individuals, multiply the result by 1.210. Chronic Kidney Disease: Estimated GFR < 60 mL/min/1.73m2 Severe Kidney Disease: Estimated GFR < 15 mL/min/1.73m2 Complete Blood Count no Diff Reviewed date:11/01/2023 08:04:51 AM Interpretation: Performing Lab:[address] [address] Notes/Report: White Blood Count 3.6 4.8-10.8 X10*3/uL [...] INR Reviewed date:11/01/2023 08:04:51 AM Interpretation: Performing Lab:[address] [address] Notes/Report: Prothrombin Time 11.6 11.1-13.3 SEC INTERNATIONAL [...] Time Reviewed date:11/01/2023 08:04:51 AM Interpretation: Performing Lab:[facility], [address] [place] [phone] Notes/Report: Partial Thromboplastin Time 30.0 26.0-36.8 SEC For information regarding the monitoring of direct thrombin inhibitors, please refer to Pharmacy. Basic Metabolic Panel Reviewed date:11/01/2023 08:04:51 AM Interpretation: Performing Lab:[address] [address] Notes/Report: Sodium 134 135-145 mmol/L Potassium 4.1 [...] Glomerular Filt Rate > 60 NOTE: For -Greenlandic individuals, multiply the result by 1.210. Chronic Kidney Disease: Estimated GFR < 60 mL/min/1.73m2 Severe Kidney Disease: Estimated GFR < 15 mL/min/1.73m2 Glucose Random 102 60-115 mg/dL Calcium 9.9 8.4-10.2 mg/dL Type and Screen Reviewed date:11/01/2023 08:04:51 AM Interpretation: Performing Lab:[facility], [address] [place] [phone] Notes/Report: witnessed by [facility]: Call Blood Bank (ext. [phone]) to band patient on admission. Type and Screen in effect until 2300 on 11-02-2023 Blood Type AP Antibody Screen NEGATIVE Complete Blood Count no Diff Reviewed date:11/02/2023 04:00:19 PM Interpretation: Performing Lab:[facility], [address] [place] [phone] Notes/Report: White Blood Count 3.8 4.8-10.8 X10*3/uL [...] INR Reviewed date:11/02/2023 04:00:19 PM Interpretation: Performing Lab:[facility], [address] [place] [phone] Notes/Report: Prothrombin Time 12.0 11.1-13.3 SEC INTERNATIONAL [...] Time Reviewed date:11/02/2023 04:00:19 PM Interpretation: Performing Lab:[facility], [address] [place] [phone] Notes/Report: Partial Thromboplastin Time 29.8 26.0-36.8 SEC For information regarding the monitoring of direct thrombin inhibitors, please refer to Pharmacy. Basic Metabolic Panel Reviewed date:11/02/2023 04:00:19 PM Interpretation: Performing Lab:[facility], [address] [place] [phone] Notes/Report: Sodium 136 135-145 mmol/L Potassium 4.3 [...] Glomerular Filt Rate > 60 NOTE: For -Greenlandic individuals, multiply the result by 1.210. Chronic Kidney Disease: Estimated GFR < 60 mL/min/1.73m2 Severe Kidney Disease: Estimated GFR < 15 mL/min/1.73m2 Glucose Random 104 60-115 mg/dL Calcium 9.9 8.4-10.2 mg/dL Pathology Reviewed date:11/06/2023 09:57:22 AM Interpretation: Performing Lab:[facility], [address] [place] [phone] Notes/Report: ---- Name: Sid Landeros Age/Sex: 62/M : 1960 Unit#: [id number] Attend Dr: Jhony Orr MD Re11/02/23 Status : DIS IN [facility] Disch: 11/03/23 ---- SPEC : [id number] RECD: 11/02/23-1307 STATUS: FRANK GEE NUM: [id number] PILY: 11/02/23-[address] [facility] [address]: Jhony Orr MD ENTERED: 11/02/23-13 19 [...] diameter. Sectioning reveals homogeneous, pink-maroon cut surfaces. [employer] secti ons are submitted in a cassette labeled A1. CEDS Copies To: Ashish Huertas MD [address], [address] [place] [address] Jhony Orr MD [address] [place] [address] Dr. Jane [address] [place] [address] ---- Signed (signature on file) Lily [place] 11/03/23 1634 ---- END OF REPORT COVID-19 ID NOW ([place]) Reviewed date:11/02/2023 04:00:19 PM Interpretation: Performing Lab:[facility], [address] [place] [phone] Notes/Report: IDNOW Serial# [id number] COVID-19 Test Negative Negative COVID-19 Note See [...] viruses. Testing facilities within the [place] and its territories are required to report [...] by authorized laboratories. Testing performed on the [employer] ID NOW utilizing NAAT. FL guidance in [place] Reviewed date:11/13/2023 08:46:13 AM Interpretation: Performing Lab: Notes/Report: [address] [address] Fluoroscopy Report Signed Patient: Sid Landeros MR#: [id number] : 1960 Acct:[id number] Age/Sex: 62 / M ADM Date: 11/02/23 Loc: [facility] 262-[address]: Jhony Orr MD Ordering Physician: Jhony Orr MD Date of Service: 11/02/23 Procedure(s): FL guidance in OR Accession Number(s): [id number] cc: Ashish Huertas MD; Jhony Orr MD [...] in OV> 11/11/23 0740 DD/ 1310 TD/TT: Fashion Journalist: [address] [address] Fluoroscopy Report Signed Patient: Marlo Landeros MR#: [id number] : 1960 Acct:[id number] Age/Sex: 62 / M ADM Date: 11/02/23 Loc: [facility] 262-[address]: Jhony Orr MD Ordering Physician: Jhony Orr MD Date of Service: 11/02/23 Procedure(s): FL guidance in OR Accession Number(s): [id number] cc: Ashish Huertas MD; Jhony Orr MD [...] in OV> 11/11/23 0740 DD/ 1310 TD/TT: Fashion Journalist: Complete Blood Count Auto Di ff Reviewed date:11/06/2023 09:57:22 AM Interpretation: Performing Lab:[facility], [address] [place] [phone] Notes/Report: White Blood Count 6.7 4.8-10.8 X10*3/uL [...] Panel Reviewed date:11/06/2023 09:57:22 AM Interpretation: Performing Lab:[address] [address] Notes/Report: Sodium 134 135-145 mmol/L Potassium 3.6 [...] Glomerular Filt Rate > 60 NOTE: For -Greenlandic individuals, multiply the result by 1.210. Chronic Kidney Disease: Estimated GFR < 60 mL/min/1.73m2 Severe Kidney Disease: Estimated GFR < 15 mL/min/1.73m2 Glucose Random 123 60-115 mg/dL Calcium 9.1 8.4-10.2 mg/dL Phosphorus Reviewed date:11/06/2023 09:57:22 AM Interpretation: Performing Lab:[address] [address] Notes/Report: Phosphorus 3.4 2.7-4.5 mg/dL Magnesium Reviewed date:11/06/2023 09:57:22 AM Interpretation: Performing Lab:[facility], [address] [place] [phone] Notes/Report: Magnesium 1.8 1.6-2.6 mg/dL Albumin Level Reviewed date:11/06/2023 09:57:22 AM Interpretation: Performing Lab:[facility], [address] [place] [phone] Notes/Report: Albumin Level 4.0 3.5-5.0 g/dL XR thoracic spine 2V Reviewed date:01/31/2024 02:54:18 PM Interpretation: Performing Lab: Notes/Report: [address] [place] [address] XRay Report Signed Patient: Sid Landeros MR#: [id number] : 1960 Acct:[id number] Age/Sex: 63 / M ADM Date: 11/27/23 Loc: [facility] Attending Dr: Ashish Huertas MD Ordering Physician: Ashish Huertas MD Date of Service: 11/30/23 Procedure(s): XR thoracic spine 2V Accession Number(s): [id number] cc: Ashish Huertas MD EXAMINATION: XR THORACIC [...] in OV> 11/30/23 1132 DD/ 0945 TD/TT: Fashion Journalist: [address] [address] XRay Report Signed Patient: Marlo Landeros MR#: [id number] : 1960 Acct:[id number] Age/Sex: 63 / M ADM Date: 11/27/23 Loc: HO.XRAY Attending Dr: Ashish Huertas MD Ordering Physician: Ashish Huertas MD Date of Service: 11/30/23 Procedure(s): XR thoracic spine 2V Accession Number(s): [id number] cc: Ashish Huertas MD EXAMINATION: XR THORACIC [...] in OV> 11/30/23 1132 DD/ 0945 TD/TT: Fashion Journalist: US QUINN complete Reviewed date:02/20/2024 04:43:15 AM Interpretation: Performing Lab: Notes/Report: [address] [address] Ultrasound Report Signed Patient: Sid Landeros MR#: [id number] : 1960 Acct:[id number] Age/Sex: 63 / M ADM Date: 02/15/24 Loc: HO.US Attending Dr: Jhony Orr MD Ordering Physician: Jhony Orr MD Date of Service: 02/15/24 Procedure(s): US KAI complete Accession Number(s): [id number] cc: Ashish Huertas MD; Jhony Orr MD [...] in OV> 02/17/24 1435 DD/ 0928 TD/TT: Fashion Journalist: [place] [address] Ultrasound Report Signed Patient: Marlo Landeros MR#: [id number] : 1960 Acct:[id number] Age/Sex: 63 / M ADM Date: 02/15/24 Loc: . Attending Dr: Jhony Orr MD Ordering Physician: Jhony Orr MD Date of Service: 02/15/24 Procedure(s): US KAI complete Accession Number(s): [id number] cc: Ashish Huertas MD; Jhony Orr MD [...] in OV> 02/17/24 1435 DD/ 0928 TD/TT: Fashion Journalist: US arterial duplex LE BI Reviewed date:02/20/2024 04:43:15 AM Interpretation: Performing Lab: Notes/Report: [address] [address] Ultrasound Report Signed Patient: Sid Landeros MR#: [id number] : 1960 Acct:[id number] Age/Sex: 63 / M ADM Date: 02/15/24 Loc: . Attending Dr: Jhony Orr MD Ordering Physician: Jhony Orr MD Date of Service: 02/15/24 Procedure(s): US arterial duplex LE BI Accession Number(s): [id number] cc: Ashish Huertas MD; Jhony Orr MD [...] in OV> 02/17/24 1435 DD/ 0915 TD/TT: Fashion Journalist: [address] [address] Ultrasound Report Signed Patient: Marlo Landeros MR#: [id number] : 1960 Acct:[id number] Age/Sex: 63 / M ADM Date: 02/15/24 Loc: .US Attending Dr: Jhony Orr MD Ordering Physician: Jhony Orr MD Date of Service: 02/15/24 Procedure(s): US arterial duplex LE BI Accession Number(s): [id number] cc: Ashish Huertas MD; Jhony Orr MD [...] was performed only at rest. COMPARISON: 09/07/20 23 and 11/11/2022 FINDINGS: DIRECT DUPLEX DOPPLE R [...] in OV> 02/17/24 1435 DD/ 0915 TD/TT: Fashion Journalist: Complete Blood Count Auto Di ff Reviewed date:05/15/2024 08:55:39 AM Interpretation: Performing Lab:[facility], [address] [place] [phone] Notes/Report: White Blood Count 6.6 4.8-10.8 X10*3/uL [...] Panel Reviewed date:05/15/2024 08:55:39 AM Interpretation: Performing Lab:[facility], [address] [place] [phone] Notes/Report: Sodium 132 135-145 mmol/L Potassium 3.8 [...] Glomerular Filt Rate > 60 NOTE: For -Greenlandic individuals, multiply the result by 1.210. Chronic [...] ([place]) Reviewed date:05/15/2024 08:55:39 AM Interpretation: Performing Lab:[facility], [address] [place] [phone] Notes/Report: IDNOW Serial# [id number] COVID-19 Test Negative Negative COVID-19 Note See [...] with other viruses. Testing facilities within the [place] and its territories are required to report [...] by authorized laboratories. Testing performed on the [employer] ID NOW utilizing NAAT. Influenza A B2 ID NOW ([place]) Reviewed date:05/15/2024 08:55:39 AM Interpretation: Performing Lab:[facility], [address] [place] [phone] Notes/Report: IDNOW Serial# [id number] Influenza A Negative Negative Influenza B2 Negative [...] date:05/15/2024 08:55:39 AM Interpretation: Performing Lab: Notes/Report: [address] [address] XRay Report Signed Patient: Sid Landeros MR#: [id number] : 1960 Acct:[id number] Age/Sex: 63 / M ADM Date: 02/28/24 Loc: .ED Attending Dr: Ordering Physician: Generic ED Physician Date of Service: 02/28/24 Procedure(s): XR chest 2V Accession Number(s): [id number] cc: Ashish Huertas MD; Generic ED Physician [...] MD in OV> 02/28/[address] DD/ 5 TD/TT: Fashion Journalist: MAURA [address] [address] XRay Report Signed Patient: Marlo Landeros MR#: [id number] : 1960 Acct:[id number] Age/Sex: 63 / M ADM Date: 02/28/24 Loc: HO.ED Attending Dr: Ordering Physician: Generic ED Physician Date of Service: 02/28/24 Procedure(s): XR gab[address] st 2V Accession Number(s): [id number] cc: Ashish Huertas MD; Generic ED Physician [...] MD in OV> 02/28/[address] DD/ 5 TD/TT: In Store Demonstrator ist: MAURA Liver Panel Reviewed date:06/27/2024 06:04:41 AM Interpretation: Performing Lab:[facility], [address] [place] [phone] Notes/Report: Bilirubin Total 0.6 0.0-1.0 mg/dL Bilirubin Direct 0.3 0.0-0.5 mg/dL Aspartate Amino Transferase 40 5-37 U/L Alanine Aminotransferase 31 0-40 U/L Total Protein 7.8 6.5-8.0 g/dL Albumin Level 4.4 3.5-5.0 g/dL Alkaline Phosphatase 110 39-117 U/L Lipid Panel Reviewed date:06/27/2024 06:04:41 AM Interpretation: Performing Lab:[facility], [address] [place] [phone] Notes/Report: Triglycerides 39 <150 mg/dL Desirable Triglyceride: [...] low results in patients with liver disease. US arterial duplex BI w/ KAI Reviewed date:09/24/2024 07:13:25 AM Interpretation: Performing Lab: Notes/Report: [address] [address] Ultrasound Report Signed Patient: Sid Landeros MR#: [id number] : 1960 Acct:[id number] Age/Sex: 63 / M ADM Date: 08/22/24 Loc: . Attending Dr: Jhony Orr MD Ordering Physician: Jhony Orr MD Date of Service: 08/22/24 Procedure(s): US arterial duplex BI w/ KAI Accession Number(s): [id number] cc: Ashish Huertas MD; Jhony Orr MD EXAMINATION: Noninvasive assessment of the bilateral lower extremities with ARTERIAL DUPLEX, ANKLE BRACHIAL INDICES (ABIs), and PULSE VOLUME RECORDINGS (PVRs). CLINICAL INFORMATION: Peripheral arterial disease, status post left fem-pop bypass graft TECHNIQUE: Duplex Doppler techniques with waveform analysis and measurement of velocities in the bilateral common femoral, profunda femoris, superficial femoral, popliteal and tibial arteries were performed. Additionally, ankle pulse volume recordings, ankle pressure measurements and ankle brachial indices were obtained of the lower extremity arterial system bilaterally. The study was performed only at rest. COMPARISON: Arterial duplex ultrasound dated 02/15/2024 FINDINGS: DIRECT DUPLEX DOPPLER FINDINGS: RIGHT LEG: Common femoral artery: 215 cm/s, phasicity: Triphasic Profunda femoris artery: 116 cm/s, phasicity: Triphasic Superficial femoral artery (proximal): 90 cm/s, phasicity: Monophasic Superficial femoral artery (mid): 32 cm/s, phasicity: Monophasic Superficial femoral artery (distal): Occluded. Patent collateral visualized in close proximity to the occluded distal right superficial femoral artery with velocity of 50 cm/s and a monophasic waveform. Popliteal artery: 31 cm/s, phasicity: Monophasic Posterior tibial artery: 14 cm/s, phasicity: Monophasic Peroneal artery: Occluded Anterior tibial artery: 20 cm/s, phasicity: Monophasic Dorsalis pedis artery: 24 cm/s, phasicity:Monophasic LEFT LEG: Common femoral artery: 220 cm/s, phasicity: Triphasic Profunda femoris artery: 96 cm/s, phasicity: Triphasic Superficial femoral artery (proximal): Occluded Superficial femoral artery (mid): Occluded Superficial femoral artery (distal): Occluded Popliteal artery: 115 cm/s, phasicity: Triphasic Posterior tibial artery: 58 cm/s, phasicity: Monophasic Peroneal artery: Occluded Anterior tibial artery: 54 cm/s, phasicity: Biphasic Dorsalis pedis artery: 74 cm/s, phasicity: Biphasic Patent left femoral-popliteal bypass graft Inflow artery: 220 cm/s; phasicity: Triphasic Proximal to the anastomosis: 210 cm/s; phasicity: Triphasic Proximal bypass graft: 88 cm/s; phasicity: Triphasic Mid bypass graft: 95 cm/s; phasicity: Triphasic Distal bypass graft: 89 cm/s; phasicity: Triphasic Distal anastomosis: 63 cm/s; phasicity: Monophasic Outflow artery: 88 cm/s; phasicity: Biphasic BRACHIAL PRESSURES: Right: 159 Left: 159 ANKLE PRESSURES: Right: PT 87, DP 109 Left: PT 145, DP 155 ANKLE-BRACHIAL INDEX: Right: 0.69 Left: 0.97 ANKLE PVR WAVEFORMS: Right: Abnormal Left: Mildly Abnormal US/US arterial duplex BI w/ KAI IMPRESSION: Right Le. Severe peripheral arterial disease of the right lower extremity. 2. Occluded distal right superficial femoral artery with patent collateral visualized in close proximity to the occluded distal right superficial femoral artery. 3. Occluded right peroneal artery. 4. Elevated velocity of the right common femoral artery suggestive of moderate stenosis. 5. Diffuse decrease in velocity and monophasic waveforms from the proximal right superficial femoral artery to the patent below the knee arteries. 6. Abnormal right ankle-brachial index of 0.69. Left Le. Occluded left superficial femoral artery. 2. Patent left femoral-popliteal bypass graft without evidence of hemodynamically significant stenosis by velocity criteria. However, note is made of a monophasic waveform at the distal anastomosis which is suggestive of some degree of stenosis. The popliteal artery distal to the bypass graft is patent with normal velocity and waveform. 3. Occluded left peroneal artery. 4. Monophasic waveform of the posterior tibial artery. 5. Normal left ankle-brachial index of 0.97. KAI Reference: - >1.4 = calcified vessels - 0.9 - 1.4 = normal - no significant arterial disease - 0.7 - 0.89 = mild peripheral arterial disease - 0.51 - 0.69 = moderate peripheral arterial disease - d 0.50 = severe peripheral arterial disease - < .30 = critical arterial disease Electronically signed by: Sultana Beaver MD 09/23/2024 06:[address] 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: [place] [address] Ultrasound Report Signed Patient: Marlo Landeros MR#: [id number] : 1960 Acct:[id number] Age/Sex: 63 / M ADM Date: 08/22/24 Loc: HO.US Attending Dr: Jhony Orr MD Ordering Physician: Jhony Orr MD Date of Service: 08/22/24 Procedure(s): US arterial duplex BI w/ KAI Accession Number(s): [id number] cc: Ashish Huertas MD; Jhony Orr MD EXAMINATION: Noninvasive assessme nt of the bilateral lower extremities with ARTERIAL DUPLEX, ANKLE BRACHI AL INDICES (ABIs), and PULSE VOLUME RECORDINGS (PVRs). CLINICAL INFORMATION: Peripheral arterial disease, status post left fem-pop bypass graft TECHNIQUE: Duplex Doppler techniques with waveform analysis and measurement of velocities in the bilateral common femoral, profunda femoris, superficial femoral, popliteal and tibial arteries were performed. Additionally, ankle pulse volume recordings, ankle pressure measurements and ank le brachial indices were obtained of the lower extremity arterial system bilaterally. The study was performed only at rest. COMPARISON: Arterial duplex ultrasound dated 02/15/2024 FINDINGS: DIRECT DUPLEX DOPPLE R FINDINGS: RIGHT LEG: Common femoral arter y: 215 cm/s, phasicity: Triphasic Profunda femoris art floyd: 116 cm/s, phasicity: Triphasic Superficial femoral artery (proximal): 90 cm/s, phasicity: Monophasic Superficial femoral artery (mid): 32 cm/s, phasicity: Monophasic Superficial femoral artery (distal): Occluded. Patent collateral visualized in close proximity to the occluded distal right superficial femoral artery with velocity of 50 cm/s and a monophasic waveform. Popliteal artery: 31 cm/s, phasicity: Monophasic Posterior tibial art floyd: 14 cm/s, phasicity: Monophasic Peroneal artery: Occluded Anterior tibial tenisha ry: 20 cm/s, phasicity: Monophasic Dorsalis pedis arter y: 24 cm/s, phasicity:Monophasic LEFT LEG: Common femoral arter y: 220 cm/s, phasicity: Triphasic Profunda femoris art floyd: 96 cm/s, phasicity: Triphasic Superficial femoral artery (proximal): Occluded Superficial femoral artery (mid): Occluded Superficial femoral artery (distal): Occluded Popliteal artery: 11 5 cm/s, phasicity: Triphasic Posterior tibial art floyd: 58 cm/s, phasicity: Monophasic Peroneal artery: Occluded Anterior tibial tenisha ry: 54 cm/s, phasicity: Biphasic Dorsalis pedis arter y: 74 cm/s, phasicity: Biphasic Patent left femoral-popliteal bypass graft Inflow artery: 220 c m/s; phasicity: Triphasic Proximal to the anastomosis: 210 cm/s; phasicity: Triphasic Proximal bypass arline t: 88 cm/s; phasicity: Triphasic Mid bypass graft: 95 cm/s; phasicity: Triphasic Distal bypass graft: 89 cm/s; phasicity: Triphasic Distal anastomosis: 63 cm/s; phasicity: Monophasic Outflow artery: 88 c m/s; phasicity: Biphasic BRACHIAL PRESSURES: Right: 159 Left: 159 ANKLE PRESSURES: Right: PT 87, DP 109 Left: PT 145, DP 155 ANKLE-BRACHIAL INDEX: Right: 0.69 Left: 0.97 ANKLE PVR WAVEFORMS: Right: Abnormal Left: Mildly Abnormal U S/US arterial duplex BI w/ KAI IMPRESSION: Right Le. Severe peripheral arterial disease of the right lower extremity. 2. Occluded distal r ight superficial femoral artery with patent collateral visualize d in close proximity to the occluded distal right superficial femoral artery. 3. Occluded right peroneal artery. 4. Elevated velocity of the right common femoral artery suggestive of moderate stenosis. 5. Diffuse decrease in velocity and monophasic waveforms from the proximal right superficial femoral artery to the patent below the knee arteries. 6. Abnormal right ankle-brachial index of 0.69. Left Le. Occluded left superficial femoral artery. 2. Patent left femoral-popliteal bypass graft without evidence of hemodynamically significant stenosis by velocity criteria. However, note is made of a monophasic waveform at the distal anastomosis which is suggestive of razia e degree of stenosis. The popliteal artery distal to the bypass graft is patent with normal velocity and waveform. 3. Occluded left peroneal artery. 4. Monophasic wavefo rm of the posterior tibial artery. 5. Normal left ankle-brachial index of 0.97. KAI Reference: - >1.4 = calcified vessels - 0.9 - 1.4 = normal - no significant arterial disease - 0.7 - 0.89 = mild peripheral arterial disease - 0.51 - 0.69 = mode rate peripheral arterial disease - d 0.50 = severe peripheral arterial disease - < .30 = critical arterial disease Electronically julio c d by: Sultana Beaver MD 09/23/2024 06:[address] 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: Reason For Referral Reason Consult and Treat Pain to right of lumbar spine Left Shoulder is higher Diagnosis 1 Thoracic back pain ( M54.6) Diagnosis 2 Lumbar back pain (M5 4.50) Diagnosis 3 Shoulder pain, left (M25.512) Referral Organization Ashish Huertas III, MD Referring Provider First Name Ashish Referring Provider Last Name Aleksandar Referring Provider Speciality Internal M edicine Referred Provider Spine and Sp niesha Davenport Referred Provider Specialty Physical Med icine General Notes Sharon Dickinson 2023 10:21:00 AM EST > Faxed with Xrays, referral and progress note Referral Priority Routine Referral Appointment Date 12/21/2023 Medications Medication SIG (Take, Route, Frequency, Duration) Notes Start Date End Date Status Clopidogrel Bisulfate 75 MG 1 tablet Ora lly Once a day 08/02/2024 Active Mupirocin 2 % 1 application Block Engraver ally Twice a day 11/20/2023 Active Rosuvastatin [...] Problem Status W/U Status Risk Notes Problem 780823172 Overweight (E66.3) Active confirmed He is very slightly overweight.His BMI is 25.1. We discussed his diet and nutrition we made a plan to lose weight at a rate of one half of a pound per week. Problem Hypertension (09056819) Hypertension (I10) Active confirmed His blood pressure is 148/82. No change in his regimen was made. I encouraged him to pursue aggressive sodium restriction. He was given an appointment to come to the office and recheck his blood pressure. Problem 34451863 Porphyria cutanea tarda (E80.1) Active confirmed The diagnosis o f porphyria was made by a vendor management associate at [facility]. He affirms that if he goes into direct sunlight. He will experience blisters and skin lesions. He is well versed in how to prevent this and has medications for his skin. Problem Benign prostatic hyperplasia (679311483) BPH (benign prostatic hyperplasia) (N40.0) Active confirmed He rises from sleep usually once a night occasionally twice. We have discussed lifestyle modifications he can make to reduce nocturia. Problem 41671466 Tobacco dependence (F17.200) Active confirmed He continues to smoke a package of cigarettes every day. We discussed the health consequences of this. His COPD has been stable and inactive recently. I made him aware of the smoking cessation programs and the local hospitals and this community. Problem COPD - Chronic obstructive pulmonary disease (42619348) COPD (chronic obstructive pulmonary disease) (J44.9) Active [...] lung cancer, COPD, oxygen dependence, etc. Problem 54936603 Pilonidal cyst (L05.91) Active confirmed He had an excision and repair of this cyst years ago. It is healed and no longer bothers him. Problem 712115031 Peripheral arterial disease (I73.9) Active confirmed His claudicatio n has improved. He recently underwent a revision of his left femoral-poplitea l bypass graft. The wound is now healed. He experiences some claudication in his right leg and is able to walk one block without stopping to rest. Problem 867907163 Lumbar radiculopathy, right (M54.16) Active confirmed He continues to have pain that comes from his lower lumbar spine and right paravertebral muscles that radiates into his right buttock. X-rays have shown degenerative disease. The pain is aggravated with walking more than 10 feet and lifting more than 10 pounds. He has been referred to [facility] in [facility] for physical therapy injections imaging and evaluation for surgery. Problem 60487595 Acute diffuse otitis externa of both ears [...] Date Provider Diagnosis Ashish Huertas III, MD [address] [place] [address] [place] [address] 10/26/2023 Ashish Huertas Tobacco dependence F17.200 ; COPD (chronic obstructive pulmonary disease) J44.9 ; Hypertension I10 ; BPH (benign prostatic hyperplasia) N40.0 ; Peripheral arterial disease I73.9 ; Porphyria cutanea tarda E80.1 ; Lumbar radiculopathy, right M54.16 and Acute diffuse otitis externa of both ears H60.313 Ashish Huertas III, MD [address] [place] [address] [place] [address] 11/17/2023 Ashish Huertas Tobacco dependence F17.200 ; COPD (chronic obstructive pulmonary disease) J44.9 ; Hypertension I10 ; Peripheral arterial disease I73.9 ; Acute diffuse otitis externa of both ears H60.313 ; Lumbar radiculopathy, right M54.16 and Porphyria cutanea tarda E80.1 Ashish Huertas III, MD [address] [place] [address] [place] [address] 11/20/2023 Ashish Huertas Tobacco dependence F17.200 ; BPH (benign prostatic hyperplasia) N40.0 ; Hypertension I10 ; Peripheral arterial disease I73.9 ; Lumbar radiculopathy, right M54.16 ; Acute diffuse otitis externa of both ears H60.313 and Porphyria cutanea tarda E80.1 Ashish Huertas III, MD [address] [place] [address] [place] [address] 11/27/2023 Ashish Huertas Tobacco dependence F17.200 ; Left low back pain, unspecified chronicity, unspecified whether sciatica present M54.50 ; Lumbar radiculopathy, right M54.16 ; Lumbar back pain M54.50 ; Hypertension I10 ; BPH (benign prostatic hyperplasia) N40.0 and Peripheral arterial disease I73.9 Ashish Huertas III, MD [address] [place] [address] [place] [address] 01/20/2024 Ashish Huertas Tobacco dependence F17.200 ; Peripheral arterial disease I73.9 ; Hypertension I10 ; Lumbar radiculopathy, right M54.16 ; BPH (benign prostatic hyperplasia) N40.0 and Porphyria cutanea tarda E80.1 Ashish Huertas III, MD [address] [place] [address] [place] [address] 02/09/2024 Ashish Huertas Tobacco dependence F17.200 ; Otitis of both ears H66.93 ; Peripheral arterial disease I73.9 ; BPH (benign prostatic hyperplasia) N40.0 ; Hypertension I10 and COPD (chronic obstructive pulmonary disease) J44.9 Ashish Huertas III, MD [address] [place] [address] [place] [address] 02/19/2024 Ashish Huertas Tobacco dependence F17.200 ; COPD (chronic obstructive pulmonary disease) J44.9 ; Peripheral arterial disease I73.9 ; Lumbar radiculopathy, right M54.16 ; Acute diffuse otitis externa of both ears H60.313 ; Porphyria cutanea tarda E80.1 ; Hypertension I10 and Overweight E66.3 Ashish Huertas III, MD [address] [place] [address] 04/29/2024 Ashish Huertas Tobacco dependence F17.200 ; Insect bite without infection W57.XXXA ; Hypertension I10 ; COPD (chronic obstructive pulmonary disease) J44.9 ; BPH (benign prostatic hyperplasia) N40.0 ; Peripheral arterial disease I73.9 ; Acute diffuse otitis externa of both ears H60.313 and Overweight E66.3 Ashish Huertas III, MD [address] [place] [address] [place] [address] 05/23/2024 Ashish Huertas Tobacco dependence F17.200 ; BPH (benign prostatic hyperplasia) N40.0 ; Overweight E66.3 ; COPD (chronic obstructive pulmonary disease) J44.9 ; Hypertension I10 ; Peripheral arterial disease I73.9 ; Porphyria cutanea tarda E80.1 and Acute diffuse otitis externa of both ears H60.313 Ashish Huertas III, MD [address] [place] [address] [place] [address] 08/02/2024 Ashish Huertas Infection of pelvis M86.9 ; Peripheral arterial disease I73.9 ; COPD (chronic obstructive pulmonary disease) J44.9 ; Lumbar radiculopathy, right M54.16 ; BPH (benign prostatic hyperplasia) N40.0 and Hypertension I10 Ashish Huertas III, MD [address] [place] [address] [place] [address] 08/15/2024 Ashish Huertas Infection of pelvis M86.9 ; Hypertension I10 ; BPH (benign prostatic hyperplasia) N40.0 ; COPD (chronic obstructive pulmonary disease) J44.9 ; Peripheral arterial disease I73.9 and Lumbar radiculopathy, right M54.16 Ashish Huertas III, MD [address] [place] [address] [place] [address] 10/14/2023 Ashish Huertas III, MD [address] [place] [address] [place] [address] 10/28/2023 Ashish Huertas III, MD [address] [place] [address] [place] [address] 12/14/2023 Ashish Huertas III, MD [address] [place] [address] 02/09/2024 Ashish Huertas III, MD [address] [place] [address] 02/19/2024 Ashish Huertas III, MD [address] [place] [address] [place] [address] 02/24/2024 Ashish Huertas III, MD [address] [place] [address] 02/26/2024 Ashish Huertas III, MD [address] [place] [address] [place] [address] 02/26/2024 Ashish Huertas III, MD [address] [place] [address] [place] [address] 05/03/2024 Ashish Huertas Tobacco dependence F17.200 Ashish Huertas III, MD [address] [place] [address] [place] [address] 05/19/2024 Ashish Huertas III, MD [address] [place] [address] [place] [address] 07/01/2024 Ashish Huertas Assessments Encounter Date Diagnosis (ICD Code) Assessment Notes Treatment Notes Treatment Clinical Notes 10/26/2023 Tobacco dependence (ICD-10 - F17.200) He [...] the left side. It is now resolved 05/03/2024 Tobacco dependence (ICD-10 - F17.200) He continues to smoke a package of cigarettes every day. We discussed the health consequences of this. His COPD has been stable and inactive recently. I made him aware of the smoking cessation programs and the local hospitals and this community. 10/26/2023 Hypertension (ICD-10 - I10) His blood [...] modifications he can make to reduce nocturia. 10/26/2023 BPH (benign prostatic hyperplasia) (ICD-10 - [...] 10 pounds. He has been referred to [facility] in [place] [facility] for physical therapy injections imaging and [...] 10 pounds. He has been referred to [facility] in [place] [facility] for physical therapy injections imaging and [...] include lung cancer, COPD, oxygen dependence, etc. 10/26/2023 Peripheral arterial disease (ICD-10 - I73.9) [...] diagnosis of porphyria was made by a vendor management associate at [facility]. He affirms that if he goes into [...] diagnosis of porphyria was made by a vendor management associate at [facility]. He affirms that if he goes into [...] diagnosis of porphyria was made by a vendor management associate at [facility]. He affirms that if he goes into [...] 10 pounds. He has been referred to [facility] for physical therapy injections imaging and evaluation for surgery. 10/26/2023 Lumbar radiculopathy, right (ICD-10 - M54.16) This pain has now resolved. 11/17/2023 Porphyria cutanea tarda (ICD-10 - E80.1) The diagnosis of porphyria was made by a vendor management associate at [facility]. He affirms that if he goes into direct sunlight. He will experience blisters and skin lesions. He is well versed in how to prevent this and has medications for his skin. 11/20/2023 Porphyria cutanea tarda (ICD-10 - E80.1) The diagnosis of porphyria was made by a vendor management associate at [facility]. He affirms that if he goes into [...] diagnosis of porphyria was made by a vendor management associate at [facility]. He affirms that if he goes into [...] 02/09/2024 Next Appt Details Provider Name:Ashish Huertas, 10/28/2024 01:30:00 PM, [address] [place] [address] [address], [place], [address], Insurance Providers Payer Name Payer Address Payer Phone Subscriber Number Group Number Insured Name Patient Relationship to Insured Coverage Start Date Coverage End Date [facility] [address] [place], [place] [phone] [id number] Sid Landeros Self - patient is the insured [address] [place] [address] [id number] Sid Landeros Self - patient is the insured Medical (General) History Medical History History ICD Code COPD (chronic obstructive pulmonary dise ase) J44.9 Hypertension I10 Erectile dysfunction Peripheral vascular disease Environmental allergies History of repaired pilonidal cyst Excised lipoma, left triceps, age 8 Porphyria cutanea [place], Dr. Brady, [facility] Tobacco dependence Covid19 infection 2021 Lumbar radiculopathy {'Porphyria': 'No current is sues', 'Infection on backside': 'Resolved with antibiotics'} Surgical History Surgery Date(Month/Year) Femoral -popliteal arterial bypass @[facility] 05/2022 Esophagogastricduodoscopy Excision of lipoma, left triceps, age 8 Repair of pilonidal cyst Fracture of 2 fingers Colonoscopy, [facility], Dr. Ramos Arterial Bipass 05/2022 No history Hospitalization History Reason Date(Month/Year) No history
--- OUTSIDE RECORDS SUMMARY | 2024-10-03 16:48 | XMS_ITS ---
Author Organization Ashish Huertas III, MD Address [address] [place] [address] Care Team Providers Care Channel Manager Name Role Phone Ashish Huertas Primary Care Provider [phone] REASON FOR VISIT Annual Exam Social History Sex Assigned At : Social History Observation Description Sex Assigned At Male Encounters Encounter Location Date Provider Diagnosis Ashish Huertas III, MD [address] [place] [address] [place] [address] 09/26/2024 Ashish Huertas Plan Of Treatment Next Appt Details Provider Name:Ashish Huertas, 10/28/2024 01:30:00 PM, [address] [place] [address] [address], [place], [address], Progress Notes * Sid LANDEROS MDOB: 2 (63 yo M)Acc No.[id number]:09/26/2024 Progress Notes Patient:?Sid LANDEROS Provider:?Ashish Huertas MD :1960???Age:63 Y???Sex:Male Danny e:09/26/2024 Address:[address], [id number] Subjective: * Chief Complaints: * ???1. Annual Exam. * Medical History:? Objective: * Vitals:? Assessment: Plan: * Treatment: * Images: * The named appointment provid er may or may not be the originator of this progress note, and it is not deemed complete until electronically signed by the appointment provider. Sign off status: Pending * Provider:?Ashish Huertas MD Date:?08/30 Generated for Vanessa rodriguez/Namita/Lesly on:?10/03/2024 04:47 PM EST
== END 2024-10-03 15:19 | disposition home or self-care (01) ==
PROVIDERS: PCP Internal Medicine Medical Oncology; Visit Provider Internal Medicine
DX: J41.0 Simple chronic bronchitis (principal); J30.9 Allergic rhinitis, unspecified; F17.210 Nicotine dependence, cigarettes, uncomplicated; J40 Bronchitis, not specified as acute or chronic
CPT/HCPCS: 99213

== ENCOUNTER → 2024-10-03 14:27 | Outpatient (BNVA) | payer BC, OTHER, SELFPAY | PROVIDERS: PCP Internal Medicine Medical Oncology; Visit Provider Internal Medicine ==

== ENCOUNTER 2024-10-24 14:34 | Outpatient (AMB) | payer BC, OTHER, SELFPAY ==
--- NOTE | 2024-10-24 14:38 | MHC.OFFVIS ---
Vital Signs 10/24/24 14:39 Height 5 ft 10 in Weight 178 lb BMI 25.5 BP 148/69 H Blood Pressure Location Lt brachial Position Sitting Pulse 84 Intake Visit Reasons: abnormal finding of blood chemistry/Jenifer pt Intake Note: Patient follow up for abnormal finding of blood chemistry/pt jabari was 11/20/2022 with Jenifer. Patient denies any GI issues. 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 Prev [facility] patient. Hx of large TA in 2022 and due for repeat colo for which he is here. No fam hx of colon ca, no diarrhea, no rectal bleeding. Also noted on labs was anemia 2023 and elevated LFTs. Continues to smoke. Also has etOH use disorder. Drink 1-4 beers/day most of the days. [facility] Medical History Abnormal LFTs ETOH abuse Hereditary hemochromatosis Atherosclerotic cardiovascular disease Bilateral carotid artery stenosis PAD (peripheral artery disease) Murmur HTN (hypertension) Hyperlipidemia COPD (chronic obstructive pulmonary disease) SOB (shortness of breath) Allergic rhinitis Nicotine dependence, cigarettes, uncomplicated GERD (gastroesophageal reflux disease) Tubular adenoma of colon Porphyria cutanea tarda Arthritis Surgical History History of femoropopliteal bypass History of femoropopliteal bypass (11/02/23) S/P angiogram of extremity History of colonoscopy History of esophagogastroduodenoscopy History of lipoma History of skin graft History of removal of cyst History of foot surgery Family History Father Diabetes Stroke Hypertension Mother Chronic mental illness Family/Other FH: mental illness Social History Household Members: Spouse Housing: House Are you a primary physician assistant primary care to a significant other at home: No Do you presently have visiting nurse or other home services: No 75 years or older and lives alone: No Alcohol intake: current Alcohol intake frequency: a few times a month Alcohol type: beer Comment: residual pain in left foot, but much improved and tolerable per patient. 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 occupational exposures/hazards: No Cognitive needs: No Hearing needs: No Vision needs: Yes Review of Systems Const All systems reviewed & are unremarkable except as noted in HPI and below Physical Exam Vital Signs: Last Vital Signs Pulse 84 10/24/24 14:39 BP 148/69 H 10/24/24 14:39 BMI result Body Mass Index 25.5 No apparent distress Nonicteric Abdomen soft, nondistended Alert and oriented x3, normal gait Assessment & Plan Assessment & Plan (1) Abnormal LFTs: Code(s): R79.89 - Other specified abnormal findings of blood chemistry Category: Medical (2) Bilateral carotid artery stenosis: Code(s): I65.23 - Occlusion and stenosis of bilateral carotid arteries Category: Medical (3) PAD (peripheral artery disease): Comment: 06/16/2022 - left femoral to popliteal bypass 10/21/2023 - Left external iliac plasty 11/02/2023 - thrombectomy of left fem-pop bypass with distal anastomosis plasty Code(s): I73.9 - Peripheral vascular disease, unspecified Category: Medical (4) Hereditary hemochromatosis: Comment: (homozygous gene mutation for hemochromatosis - C282Y -hx theraputic phlebectomy - known to [facility] Onc) last therapeutic phlebotomy over a year ago (10/28/2023) Code(s): E83.110 - Hereditary hemochromatosis Category: Medical (5) COPD (chronic obstructive pulmonary disease): Comment: COPD is moderately severe, secondary to smoking, Is relatively stable at this time, but he becomes symptomatic when doing any heavy physical work. AT PRESENT HE HAS AN ACUTE EXACERBATION PROBABLY DUE TO NONSPECIFIC VIRAL ACUTE INFECTION. CONTINUES TO HAVE COUGH WHICH IS QUITE BOTHERSOME . Code(s): J44.9 - Chronic obstructive pulmonary disease, unspecified Category: Medical Qualifiers: COPD type: chronic bronchitis Chronic bronchitis type: simple Qualified Code(s): J41.0 - Simple chronic bronchitis (6) Tubular adenoma of colon: Comment: (TA on 2015 and 2022 scopes) Code(s): D12.6 - Benign neoplasm of colon, unspecified Category: Medical (7) Personal history of colonic polyps: Code(s): Z86.0100 - Personal history of colon polyps, unspecified Category: Medical Plan 1.Personal hx of polyps: repeat colo to be booked. Pt requests miralax/gatorade prep, sent to pharmacy. He is also AWARE to hold plavix x 5 days, ok to cont ASA 81. 2. Anemia Has known HH but has not gone for phlebotomy in 6 months, so anemia in the absence of ongoing blood letting is a bit atypical. Plan: - Check CBC, iron folate and B12 3. elevated LFTs: Likely 2/2 ongoing etOH use Plan: - recheck LFTs - US abd 4. Smoking/COPD Again counseled on quiting smoking or at least avoiding/minimizing x 7 days leading up to colo to reduce airway complications Follow up after colo. Orders: Orders Complete Blood Count no Diff Today R79.89 - Other specified abnormal findings of blood chemistry Comprehensive Met. Panel Today R79.89 - Other specified abnormal findings of blood chemistry Ferritin Today R79.89 - Other specified abnormal findings of blood chemistry US abdomen complete Today R79.89 - Other specified abnormal findings of blood chemistry IRON PROFILE Today R79.89 - Other specified abnormal findings of blood chemistry Vitamin B12 and Folate Today R79.89 - Other specified abnormal findings of blood chemistry Medications: New polyethylene glycol 3350 (Miralax) mix in 64oz of gatorade for colonoscopy prep - drink a cup every 10 mins 238 grams PO ONCE 238 grams 0RF bisacodyl take 2 tabs at noon, and then 2 tabs at 6pm day before colonoscopy 20 mg (4 x 5 mg) PO ONCE 1 day 4 tabs 0RF Coding Level of Care Code Est Pt Level 4 (76479) Diagnoses Abnormal LFTs R79.89 Bilateral carotid artery stenosis I65.23 PAD (peripheral artery disease) I73.9 Hereditary hemochromatosis E83.110 Simple chronic bronchitis J41.0 COPD type: chronic bronchitis Chronic bronchitis type: simple Tubular adenoma of colon D12.6 Personal history of colonic polyps Z86.0100
[2024-10-24 14:39] VITALS: BP 148/69; PULSE 84; BMI 25.5
--- OUTSIDE RECORDS SUMMARY | 2024-10-24 19:03 | XMS_ITS ---
Author Organization Ashish Huertas III, MD Address [address] [place] [address] Care Team Providers Care Belt Measurer Name Role Phone Ashish Huertas Primary Care Provider REASON FOR VISIT Rx Request Medications Medication SIG (Take, Route, Frequency, Duration) Notes Start Date End Date Status Pantoprazole Sodium 40 MG one tablet miguel angel ly Orally Once a day for 90 days Active Pantoprazole Sodium 40 MG one tablet miguel angel ly Orally Once a day for 21 days 10/04/2024 Active Social History Sex Assigned At : Social History Observation Description Sex Assigned At Male Encounters Encounter Location Date Provider Diagnosis Ashish Huertas III, MD [address] [place] [address] [place] [address] 10/04/2024 Ashish Huertas Infection of pelvis M86.9 Assessments Encounter Date Diagnosis (ICD Code) Assessment Notes Treatment Notes Treatment Clinical Notes 10/04/2024 Infection of pelvis (ICD-10 - M86.9) He had an abscess in his perineal body on the left side. It is now resolved Plan Of Treatment Medication Medication Name Sig Start Date Stop Date Notes Pantoprazole Sodium 40 MG one tablet miguel angel ly Orally Once a day for 90 days Pantoprazole Sodium 40 MG one tablet miguel angel ly Orally Once a day for 21 days 10/04/2024 Next Appt Details Provider Name:Ashish Huertas, 10/28/2024 01:30:00 PM, [address] [place] [address] [place], [address], Progress Notes * Sid LANDEROS MDOB: 2 (63 yo M)Acc No.[id number]:10/04/2024 Patient:?Sid LANDEROS :1960???Age:63 Y???Sex:Male Address: [address], [place], [address] * Refills? Refill Pantoprazole Sodium Tablet Delayed Release, 40 MG, Orally, 90, one tablet daily, Once a day, 90 days, Refills=3 Start Pantoprazole Sodium Tablet Delayed Release, 40 MG, Orally, 21, one tablet daily, Once a day, 21 days, Refills=3 * true * Date:? Generated for Vanessa rodriguez/Namita/Braydensmitting on:?10/24/2024 07:03 PM EST
--- OUTSIDE RECORDS SUMMARY | 2024-10-24 19:03 | XMS_ITS ---
Author Organization Ashish Huertas III, MD Address [address] [place] [address] Care Team Providers Care Demolitionist Name Role Phone Ashish Huertas Primary Care Provider REASON FOR VISIT Annual Exam Social History Sex Assigned At : Social History Observation Description Sex Assigned At Male Encounters Encounter Location Date Provider Diagnosis Ashish Huertas III, MD [address] [place] [address] [place] [address] 09/26/2024 Ashish Huertas Plan Of Treatment Next Appt Details Provider Name:Ashish Huertas, 10/28/2024 01:30:00 PM, [address] [place] [address] [address], [place], [address], Progress Notes * Sid LANDEROS MDOB: 2 (63 yo M)Acc No.[id number]:09/26/2024 Progress Notes Patient:?Sid LANDEROS Provider:?Ashish Huertas MD [...] Huertas MD Date:?08/30 Generated for Vanessa rodriguez/Namita/Lesly on:?10/24/2024 07:03 PM EST
--- OUTSIDE RECORDS SUMMARY | 2024-10-24 19:03 | XMS_ITS | Clinical Summary ---
Author Organization [facility] Address [address] [place] [address] Care Team Providers Care Director Mortgage Name Role Phone Goldie Watkins MD Primary Care Provid er Allergies No known active allergies Medications Medication Sig Dispensed Refills Start Date End Date Status budesonide-formotero l (SYMBICORT) 160-4.5 MCG/ACT inhaler Inhale 2 inhalations into the lungs 2 (two) times a day. 0 Active ipratropium-albutero l (COMBIVENT RESPIMAT) 20-100 MCG/ACT inhaler Inhale 1 puff into the lungs 4 (four) times a day. 0 Active amLODIPine (NORVASC) tablet 10 mg Take 10 mg by mouth daily. 0 Active pantoprazole (PROTONIX) 40 MG tablet Take 40 mg by mouth every morning on an empty stomach. 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 Social History Tobacco Use Types Packs/Day Years Used Date Smoking Tobacco: Every Day Cigarettes 1 Smokeless Tobacco: Never Alcohol Use Standard Drinks/Week Comments Yes 6 (1 standard drink = 0.6 oz pur e alcohol) Sex and Gender Information Value Date Recorded Sex Assigned at Not on file Gender Identity Not on file Sexual Orientation Not on file Last Filed Vital Signs Vital Sign Reading Time Taken Comments Blood Pressure 170/84 08/30/2021 9:05 AM EST Pulse 92 08/30/2021 9:05 AM EST Temperature 37.1 ??C (98.7 ??F) 08/30/2021 9:05 AM ES T Respiratory Rate - - Oxygen Saturation 98% 08/30/2021 9:05 AM EST Inhaled Oxygen Concentration - - Weight 78.5 kg (173 lb) 08/30/2021 9:05 AM EST Height 177.8 cm (5' 10 ) 08/30/2021 9:05 AM EST Body Mass Index 24.82 08/30/2021 9:05 AM EST Plan of Treatment Health Maintenance Due Date Last Done Comments Hepatitis C Screening 1960 COVID-19 Vaccine (#1) 05/18/1962 Pneumococcal Vaccine (1 of 2 - PCV) 1967 Depression Screening 1973 Preventative Health Evaluation 1979 Tobacco Cessation Counseling 1979 DTap / Tdap / Td (1 - Tdap) 1980 Colon Cancer Screening (Colonoscopy) 2006 Shingrix-Zoster Vaccine (1 of 2) 2011 Influenza Vaccine (#1) 2024 RSV Adult > 60+ Yrs or Pregn ant (1 - 1-dose 75+ series) 2036 Hepatitis B Vaccines Aged Out No long er eligible based on patient's age to complete this topic RSV Ped < 20 months Aged Out No longe r eligible based on patient's age to complete this topic Care Teams Director Mortgage Relationship Specialty Start Date End Date Goldie Watkins MD [address] [facility] , [address] [facility] D/B/A: [facility] [place] [id number] PCP - General Internal Medicine 06/08/17
--- OUTSIDE RECORDS SUMMARY | 2024-10-24 19:03 | XMS_ITS | Clinical Summary ---
Author Organization [facility] [employer] Address [address] [place] [address] Care Team Providers Care Bagel Maker Name Role Phone No, Pcp COMMERCIAL ADMINISTRATOR Primary Care Provider Unavailabl e Social History Tobacco Use Types Packs/Day Years Used Date Smoking Tobacco: Never Assessed Sex and Gender Information Value Date Recorded Sex Assigned at Not on file Legal Sex Male 12:46 PM EST Gender Identity Not on file Sexual Orientation Not on file Plan of Treatment Health Maintenance Due Date Last Done Comments Colorectal Cancer: COLONOSCO PY Screening every 10 yrs (or Modifier) 1961 Depression: Screening Annual ly using PHQ-2/9 in Adults 18 yrs or above (or HM Modifier)([facility]) 1979 Hepatitis C Virus Infection in Adolescents and Adults: Screening (or Modifier) ([facility]) [address] Screening Reminder: Gwen mata for all adults ([facility]) 1979 Tobacco Smoking Cessation: i n Adults excluding Women: Behavioral and Pharmacotherapy Interventions ([facility]) 1979 DTaP/Tdap/Td Vaccines ([facility]) (1 - Tdap) 1980 Lipid Screening: Every 5 yrs for Men aged 35+ (or HM Modifier) ([facility]) 1997 Colorectal Cancer Screening 45 -75 Yrs (or HM Modifier) 2006 Colorectal Cancer: FLEXIBLE SIGMOIDOSCOPY Screening every 5 yrs 2006 Colorectal Cancer: Fecal Immunochemical Test (FIT) Annually [facility] 2006 Colorectal Cancer: High-sens itivity gFOBT Screening Annually [facility] 2006 Colorectal Cancer: Stool Col oguard Screening every 3 yrs 2006 Colorectal Cancer:CT Colonog dennys Screening every 5 yrs 2006 Zoster/Shingles Vaccine Seri es Screening: Adults aged 18+ yrs (or HM Modifiers)([facility]) (1 of 2) 2011 Flu Vaccination: Yearly for ages 18mos through 64 years (or Modifier)([facility]) 04/28/2024 COVID-19 Vaccine Screening: Initial Series and Booster Status ([facility]) ( - 2023-25 season) 2024 RSV Vaccines (1 - 1-dose 75+ series) 2036 Pneumococcal Vaccination Scr eening: Pts 0-19 & 19-64 yrs of age ([facility]) Aged Out No longer eligible based on patient's age to complete this topic Medical Devices Not on file Insurance [facility] Care Teams Bagel Maker Relationship Specialty Start Date End Date No, Pcp, COMMERCIAL ADMINISTRATOR N/A Do not use PCP - General Family Medicine 10/25/20
--- OUTSIDE RECORDS SUMMARY | 2024-10-24 19:03 | XMS_ITS ---
Author Organization Ashish Huertas III, MD Address [address] [address] Care Team Providers Care Check Pilot Name Role Phone Ashish Huertas Primary Care Provider REASON FOR VISIT Annual Exam Social History Sex Assigned At : Social History Observation Description Sex Assigned At Male Encounters Encounter Location Date Provider Diagnosis Ashish Huertas III, MD [address] [place] [address] [place] [address] 10/05/2024 Ashish Huertas Plan Of Treatment Next Appt Details Provider Name:Ashish Huertas, 10/28/2024 01:30:00 PM, [address] [place] [address] [address], [place], [address], Progress Notes * Sid LANDEROS MDOB: 2 (63 yo M)Acc No.[id number]:10/05/2024 Progress Notes Patient:?Sid LANDEROS Provider:?Ashish Huertas MD :1960???Age:63 Y???Sex:Male Danny e:10/05/2024 Address:[address], [place] Subjective: * Chief Complaints: * ???1. Annual Exam. * Medical History:? Objective: * Vitals:? Assessment: Plan: * Treatment: * Images: * The named appointment provid er may or may not be the originator of this progress note, and it is not deemed complete until electronically signed by the appointment provider. Sign off status: Pending * Provider:?Ashish Huertas MD Date:?04/2025 Generated for Vanessa rodriguez/Namita/Lesly on:?10/24/2024 07:02 PM EST
--- OUTSIDE RECORDS SUMMARY | 2024-10-24 19:03 | XMS_ITS | Patient Health Record ---
Author Organization Ashish Huertas III, MD Address [address] [facility] [place] [address] Care Team Providers Care Cant Gang Sawyer Name Role Phone Ashish Huertas Primary Care Provider Allergies Allergen (clinical drug ingredient) Drug/Non Drug Allergy documented on EMR Reaction Allergy Type Onset Date Status doxycycline Doxycycline Unknown Drug Allergy Act henrry Results Component Value Reference Range Notes XR lumbar spine 4V min Reviewed date:01/31/2024 02:54:18 PM Interpretation: Performing Lab: Notes/Report: [address] [address] XRay Report Signed Patient: Sid Landeros MR#: [id number] : 1960 Acct:[id number] Age/Sex: 63 / M ADM Date: 11/27/23 Loc: HO.XRAY Attending Dr: Ashish Huertas MD Ordering Physician: Ashish Huertas MD Date of Service: 11/30/23 Procedure(s): XR lumbar spine 4V min Accession Number(s): [id number] cc: Ashish Huertas MD EXAMINATION: XR THORACIC [...] in OV> 11/30/23 1132 DD/ 0945 TD/TT: Insurance Account Assistant: [address] [address] XRay Report Signed Patient: Marlo Landeros MR#: [id number] : 1960 Acct:[id number] Age/Sex: 63 / M ADM Date: 11/27/23 Loc: HO.XRAY Attending Dr: Ashish Huertas MD Ordering Physician: Ashish Huertas MD Date of Service: 11/30/23 Procedure(s): XR lum bar spine 4V min Accession Number(s): [id number] cc: Ashish Huertas MD EXAMINATION: XR THORACIC [...] in OV> 11/30/23 1132 DD/ 0945 TD/TT: Insurance Account Assistant: Complete Blood Count no Diff Reviewed date:11/01/2023 08:04:51 AM Interpretation: Performing Lab:[facility], [address] [place] [phone] Notes/Report: White Blood Count 3.6 4.8-10.8 X10*3/uL [...] INR Reviewed date:11/01/2023 08:04:51 AM Interpretation: Performing Lab:[facility], [address] [place] [phone] Notes/Report: Prothrombin Time 11.6 11.1-13.3 SEC INTERNATIONAL [...] Time Reviewed date:11/01/2023 08:04:51 AM Interpretation: Performing Lab:[facility], [address] [place] [phone] Notes/Report: Partial Thromboplastin Time 30.0 26.0-36.8 SEC For information regarding the monitoring of direct thrombin inhibitors, please refer to Pharmacy. Basic Metabolic Panel Reviewed date:11/01/2023 08:04:51 AM Interpretation: Performing Lab:[facility], [address] [place] [phone] Notes/Report: Sodium 134 135-145 mmol/L Potassium 4.1 [...] Glomerular Filt Rate > 60 NOTE: For -Malian individuals, multiply the result by 1.210. Chronic Kidney Disease: Estimated GFR < 60 mL/min/1.73m2 Severe Kidney Disease: Estimated GFR < 15 mL/min/1.73m2 Glucose Random 102 60-115 mg/dL Calcium 9.9 8.4-10.2 mg/dL Type and Screen Reviewed date:11/01/2023 08:04:51 AM Interpretation: Performing Lab:[facility], [address] [place] [phone] Notes/Report: witnessed by [facility]: Call Blood Bank (ext. [phone]) to band patient on admission. Type and Screen in effect until 2300 on 11-02-2023 Blood Type AP Antibody Screen NEGATIVE Complete Blood Count no Diff Reviewed date:11/02/2023 04:00:19 PM Interpretation: Performing Lab:[facility], [address] [place] [phone] Notes/Report: White Blood Count 3.8 4.8-10.8 X10*3/uL [...] INR Reviewed date:11/02/2023 04:00:19 PM Interpretation: Performing Lab:[address] [phone] Notes/Report: Prothrombin Time 12.0 11.1-13.3 SEC INTERNATIONAL [...] Time Reviewed date:11/02/2023 04:00:19 PM Interpretation: Performing Lab:[address] [phone] Notes/Report: Partial Thromboplastin Time 29.8 26.0-36.8 SEC For information regarding the monitoring of direct thrombin inhibitors, please refer to Pharmacy. Basic Metabolic Panel Reviewed date:11/02/2023 04:00:19 PM Interpretation: Performing Lab:[address] [address] Notes/Report: Sodium 136 135-145 mmol/L Potassium 4.3 [...] Glomerular Filt Rate > 60 NOTE: For -Malian individuals, multiply the result by 1.210. Chronic Kidney Disease: Estimated GFR < 60 mL/min/1.73m2 Severe Kidney Disease: Estimated GFR < 15 mL/min/1.73m2 Glucose Random 104 60-115 mg/dL Calcium 9.9 8.4-10.2 mg/dL Pathology Reviewed date:11/06/2023 09:57:22 AM Interpretation: Performing Lab:[facility], [address] [place] [phone] Notes/Report: --- Name: Sid Landeros Age/Sex: 62/M : 1960 Unit#: [id number] Attend Dr: Jhony Orr MD Re11/02/23 Status : DIS IN Location: .[facility] 262-1 Disch: 11/03/23 --- SPEC : [id number] RECD: 11/02/23-1306 STATUS: FRANK GEE NUM: [id number] PILY: 11/02/23-[address] [facility] [address]: Jhony Orr MD ENTERED: 11/02/23-13 [...] diameter. Sectioning reveals homogeneous, pink-maroon cut surfaces. Media Clerk secti ons are submitted in a cassette labeled A1. CEDS Copies To: Ashish Huertas MD [address] [place] [address], [address] [place], [place] [id number] Jhony Orr MD [address] [place] [address] [address] [place] [address] --- Signed (signature on file) Lily Lorena 11/03/23 1634 --- END OF REPORT COVID-19 ID NOW ([place]) Reviewed date:11/02/2023 04:00:19 PM Interpretation: Performing Lab:[facility], [address] [place] [address], [place] [address] Notes/Report: IDNOW Serial# [id number] COVID-19 Test Negative Negative COVID-19 Note See [...] with other viruses. Testing facilities within the [place] and its territories are required to [...] by authorized laboratories. Testing performed on the Extenda-Dent ID NOW utilizing NAAT. FL guidance in OR Reviewed date:11/13/2023 08:46:13 AM Interpretation: Performing Lab: Notes/Report: [place] [address] Fluoroscopy Report Signed Patient: Sid Landeros MR#: [id number] : 1960 Acct:[id number] Age/Sex: 62 / M ADM Date: 11/02/23 Loc: [facility] 262-[address]: Jhony Orr MD Ordering Physician: Jhony Orr MD Date of Service: 11/02/23 Procedure(s): FL guidance in OR Accession Number(s): [id number] cc: Ashish Huertas MD; Jhony Orr MD [...] in OV> 11/11/23 0740 DD/ 1310 TD/TT: Insurance Account Assistant: [address] [address] Fluoroscopy Report Signed Patient: Marlo Landeros MR#: [id number] : 1960 Acct:[id number] Age/Sex: 62 / M ADM Date: 11/02/23 Loc: .ICU 262-[address]: Jhony Orr MD Ordering Physician: Jhony Orr MD Date of Service: 11/02/23 Procedure(s): FL guidance in OR Accession Number(s): [id number] cc: Ashish Huertas MD; Jhony Orr MD EXAMINATION: XR FLUOROSCOPY WITH IMAGES CLINICAL INFORMATION: Intraoperative fluoroscopy provided during angiography/interventio n COMPARISON: None available. TECHNIQUE: Fluoroscopy Supervis ed By: Dr. Orr. Fluoroscopy Time: 5. 0 minutes Cumulative Dose: 9.6 9 mGy. DAP: 2.64 Gycm2. Images: 44. FINDINGS: Please refer to procedural note for full details. FL/FL guidance in OR IMPRESSION: Intraoperative fluoroscopy during angiography/interventio n. Dictated By: Michaela Kwon MD Signed By: <Electronically signed by Michaela Kwon MD in OV> 11/11/2340 DD/ 1310 TD/TT: Insurance Account Assistant: Complete Blood Count Auto Di ff Reviewed date:11/06/2023 09:57:22 AM Interpretation: Performing Lab:[facility], [address] [place] [phone] Notes/Report: White Blood Count 6.7 4.8-10.8 X10*3/uL [...] Panel Reviewed date:11/06/2023 09:57:22 AM Interpretation: Performing Lab:[facility], [address] [place] [phone] Notes/Report: Sodium 134 135-145 mmol/L Potassium 3.6 [...] Glomerular Filt Rate > 60 NOTE: For -Malian individuals, multiply the result by 1.210. Chronic Kidney Disease: Estimated GFR < 60 mL/min/1.73m2 Severe Kidney Disease: Estimated GFR < 15 mL/min/1.73m2 Glucose Random 123 60-115 mg/dL Calcium 9.1 8.4-10.2 mg/dL Phosphorus Reviewed date:11/06/2023 09:57:22 AM Interpretation: Performing Lab:[facility], [address] [place] [phone] Notes/Report: Phosphorus 3.4 2.7-4.5 mg/dL Magnesium Reviewed date:11/06/2023 09:57:22 AM Interpretation: Performing Lab:[facility], [address] [place] [phone] Notes/Report: Magnesium 1.8 1.6-2.6 mg/dL Albumin Level Reviewed date:11/06/2023 09:57:22 AM Interpretation: Performing Lab:[facility], [address] [place] [phone] Notes/Report: Albumin Level 4.0 3.5-5.0 g/dL XR thoracic spine 2V Reviewed date:01/31/2024 02:54:18 PM Interpretation: Performing Lab: Notes/Report: [address] [place] [address] XRay Report Signed Patient: Sid Landeros MR#: [id number] : 1960 Acct:[id number] Age/Sex: 63 / M ADM Date: 11/27/23 Loc: [facility] Attending Dr: Ashish Huertas MD Ordering Physician: Ashish Huertas MD Date of Service: 11/30/23 Procedure(s): XR thoracic spine 2V Accession Number(s): [id number] cc: Ashish Huertas MD EXAMINATION: XR THORACIC [...] by Orestes Lennon MD in OV> 11/30/23 113 DD/ 0945 TD/TT: Insurance Account Assistant: [address] [address] XRay Report Signed Patient: Marlo Landeros MR#: [id number] : 1960 Acct:[id number] Age/Sex: 63 / M ADM Date: 11/27/23 Loc: HO.XRAY Attending Dr: sAhish Huertas MD Ordering Physician: Ashish Huertas MD Date of Service: 11/30/23 Procedure(s): XR thoracic spine 2V Accession Number(s): [id number] cc: Ashish Huertas MD EXAMINATION: XR THORACIC [...] by Orestes Lennon MD in OV> 11/30/23 113 DD/ 0945 TD/TT: Insurance Account Assistant: US QUINN complete Reviewed date:02/20/2024 04:43:15 AM Interpretation: Performing Lab: Notes/Report: [address] [place] [address] Ultrasound Report Signed Patient: Sid Landeros MR#: [id number] : 1960 Acct:[id number] Age/Sex: 63 / M ADM Date: 02/15/24 Loc: . Attending Dr: Jhony Orr MD Ordering Physician: Jhony Orr MD Date of Service: 02/15/24 Procedure(s): US KAI complete Accession Number(s): [id number] cc: Ashish Huertas MD; Jhony Orr MD [...] Roblero MD in OV> 02/17/24 1435 DD/ TD/TT: Insurance Account Assistant: [place] [address] Ultrasound Report Signed Patient: Marlo Landeros MR#: [id number] : 1960 Acct:[id number] Age/Sex: 63 / M ADM Date: 02/15/24 Loc: HO.US Attending Dr: Jhony Orr MD Ordering Physician: Jhony Orr MD Date of Service: 02/15/24 Procedure(s): US KAI complete Accession Number(s): [id number] cc: Ashish Huertas MD; Jhony Orr MD [...] y: 155 cm/s, phasicity: Triphasic Profunda femoris artery: 101 cm/s, phasicity: Biphasic Superficial femoral artery (proximal): 62.6 cm/s, phasicity: Biphasic Superficial femoral artery (mid): 32.4 cm/s, phasicity: Biphasic Superficial femoral artery (distal): 18 cm/s, phasicity: Monophasic Popliteal artery: 14 .6 cm/s, phasicity: Monophasic Posterior tibial artery: 25.5 cm/s, phasicity: Monophasic Peroneal artery: 19 cm/s, phasicity: Monophasic Anterior tibial tenisha ry: 58.7 cm/s, phasicity: Biphasic Dorsalis pedis arter y: Occluded LEFT LEG: Common femoral arter y: 115 cm/s, phasicity: Triphasic Profunda femoris artery: 83 cm/s, phasicity: Biphasic Femoropopliteal bypa ss [...] Normal US/US KAI complete IMPRESSION: Right leg: Moderatel y [...] in OV> 02/17/24 1435 DD/ 0928 TD/TT: Insurance Account Assistant: US arterial duplex LE BI Reviewed date:02/20/2024 04:43:15 AM Interpretation: Performing Lab: Notes/Report: [address] [address] Ultrasound Report Signed Patient: Sid Landeros MR#: [id number] : 1960 Acct:[id number] Age/Sex: 63 / M ADM Date: 02/15/24 Loc: HO.US Attending Dr: Jhony Orr MD Ordering Physician: Jhony Orr MD Date of Service: 02/15/24 Procedure(s): US arterial duplex LE BI Accession Number(s): [id number] cc: Ashish Huertas MD; Jhony Orr MD [...] in OV> 02/17/24 1435 DD/ 0915 TD/TT: Insurance Account Assistant: [place] [address] Ultrasound Report Signed Patient: Marlo Landeros MR#: [id number] : 1960 Acct:[id number] Age/Sex: 63 / M ADM Date: 02/15/24 Loc: .US Attending Dr: Jhony Orr MD Ordering Physician: Jhony Orr MD Date of Service: 02/15/24 Procedure(s): US arterial duplex LE BI Accession Number(s): [id number] cc: Ashish Huertas MD; Jhony Orr MD [...] y: 155 cm/s, phasicity: Triphasic Profunda femoris artery: 101 cm/s, phasicity: Biphasic Superficial femoral artery (proximal): 62.6 cm/s, phasicity: Biphasic Superficial femoral artery (mid): 32.4 cm/s, phasicity: Biphasic Superficial femoral artery (distal): 18 cm/s, phasicity: Monophasic Popliteal artery: 14 .6 cm/s, phasicity: Monophasic Posterior tibial artery: 25.5 cm/s, phasicity: Monophasic Peroneal artery: 19 cm/s, phasicity: Monophasic Anterior tibial tenisha ry: 58.7 cm/s, phasicity: Biphasic Dorsalis pedis arter y: Occluded LEFT LEG: Common femoral arter y: 115 cm/s, phasicity: Triphasic Profunda femoris artery: 83 cm/s, phasicity: Biphasic Femoropopliteal bypa ss [...] Roblero MD in OV> 02/17/24 1435 DD/ TD/TT: Insurance Account Assistant: Complete Blood Count Auto Di ff Reviewed date:05/15/2024 08:55:39 AM Interpretation: Performing Lab:[facility], [address] [place] [phone] Notes/Report: White Blood Count 6.6 4.8-10.8 X10*3/uL [...] Panel Reviewed date:05/15/2024 08:55:39 AM Interpretation: Performing Lab:[facility], [address] [place] [phone] Notes/Report: Sodium 132 135-145 mmol/L Potassium 3.8 [...] Glomerular Filt Rate > 60 NOTE: For -Malian individuals, multiply the result by 1.210. Chronic [...] ([place]) Reviewed date:05/15/2024 08:55:39 AM Interpretation: Performing Lab:[facility], [address] [place] [phone] Notes/Report: IDNOW Serial# [id number] COVID-19 Test Negative Negative COVID-19 Note See [...] with other viruses. Testing facilities within the [facility] and its territories are required to [...] by authorized laboratories. Testing performed on the Xamplified NOW utilizing NAAT. Influenza A B2 ID NOW ([place]) Reviewed date:05/15/2024 08:55:39 AM Interpretation: Performing Lab:[facility], [address] [place] [phone] Notes/Report: IDNOW Serial# [id number] Influenza A Negative Negative Influenza B2 Negative Negative Influenza A B2 Note See Note The Extenda-Dent ID NOW Influenza A B2 test is [...] date:05/15/2024 08:55:39 AM Interpretation: Performing Lab: Notes/Report: [address] [address] XRay Report Signed Patient: Sid Landeros MR#: [id number] : 1960 Acct:[id number] Age/Sex: 63 / M ADM Date: 02/28/24 Loc: .ED Attending Dr: Ordering Physician: Generic ED Physician Date of Service: 02/28/24 Procedure(s): XR chest 2V Accession Number(s): [id number] cc: Ashish Huertas MD; Generic ED Physician [...] MD in OV> 02/28/[address] DD/ 5 TD/TT: Insurance Account Assistant: MAURA [address] [address] XRay Report Signed Patient: Marlo Landeros MR#: [id number] : 1960 Acct:[id number] Age/Sex: 63 / M ADM Date: 02/28/24 Loc: HO.ED Attending Dr: Ordering Physician: Generic ED Physician Date of Service: 02/28/24 Procedure(s): XR [address] st 2V Accession Number(s): [id number] cc: Ashish Huertas MD; Generic ED Physician EXAMINATION: XR CHEST CLINICAL INFORMATION: Shortness of breath COMPARISON: None available. TECHNIQUE: 2 views of the chest were obtained. FINDINGS: No significant abnormality is noted involving the heart, lungs, mediastinum, bony thorax or soft tissues. Degenerative changes of the thoracic spine. XR/XR chest 2V IMPRESSION: No evidence for acut e disease in the chest. Dictated By: Agatha Patel MD Signed By: <Electronically signed by Agatha Patel MD in OV> 02/28/[address] DD/ 5 TD/TT: Insurance Account Assistant: MAURA Liver Panel Reviewed date:06/27/2024 06:04:41 AM Interpretation: Performing Lab:[facility], [address] [place] [phone] Notes/Report: Bilirubin Total 0.6 0.0-1.0 mg/dL Bilirubin Direct 0.3 0.0-0.5 mg/dL Aspartate Amino Transferase 40 5-37 U/L Alanine Aminotransferase 31 0-40 U/L Total Protein 7.8 6.5-8.0 g/dL Albumin Level 4.4 3.5-5.0 g/dL Alkaline Phosphatase 110 39-117 U/L Lipid Panel Reviewed date:06/27/2024 06:04:41 AM Interpretation: Performing Lab:[facility], [address] [place] [phone] Notes/Report: Triglycerides 39 <150 mg/dL Desirable Triglyceride: [...] date:09/24/2024 07:13:25 AM Interpretation: Performing Lab: Notes/Report: [address] [address] Ultrasound Report Signed Patient: Sid Landeros MR#: [id number] : 1960 Acct:[id number] Age/Sex: 63 / M ADM Date: 08/22/24 Loc: .US Attending Dr: Jhony Orr MD Ordering Physician: Jhony Orr MD Date of Service: 08/22/24 Procedure(s): US arterial duplex BI w/ KAI Accession Number(s): [id number] cc: Ashish Huertas MD; Jhony Orr MD [...] by: Sultana Beaver MD 09/23/2024 06:31 PM [facility] Dictated By: Twyla Beaver Signed By: <Electronically signed by Twyla Beaver in OV> 09/23/24 1831 DD/ 1133 TD/TT: 08/22/24 1210 Insurance Account Assistant: [place] [address] Ultrasound Report Signed Patient: Marlo Landeros MR#: [id number] : 1960 Acct:[id number] Age/Sex: 63 / M ADM Date: 08/22/24 Loc: HO.US Attending Dr: Jhony Orr MD Ordering Physician: Jhony Orr MD Date of Service: 08/22/24 Procedure(s): US arterial duplex BI w/ KAI Accession Number(s): [id number] cc: Ashish Huertas MD; Jhony Orr MD [...] y: 215 cm/s, phasicity: Triphasic Profunda femoris artery: [...] y: 220 cm/s, phasicity: Triphasic Profunda femoris artery: 96 cm/s, phasicity: Triphasic Superficial femoral artery (proximal): Occluded Superficial femoral artery (mid): Occluded Superficial femoral artery (distal): Occluded Popliteal artery: 11 5 cm/s, phasicity: Triphasic Posterior tibial artery: 58 [...] right superficial femoral artery with patent collateral visualize [...] by: Sultana Beaver MD 09/23/2024 06:31 PM [facility] Dictated By: Twyla Beaver Signed By: <Electronically signed by Twyla Beaver in OV> 09/23/24 1831 DD/ 1133 TD/TT: 08/22/24 1210 Insurance Account Assistant: Reason For Referral Reason Consult and Treat [...] M edicine Referred Provider [facility] Referred Provider Specialty Physical Med icine General Notes TeenaSharon 2023 10:21:00 AM EST > Faxed with Xrays, referral and progress note Referral Priority Routine Referral Appointment Date 12/21/2023 Medications Medication SIG (Take, Route, Frequency, Duration) Notes Start Date End Date Status Clopidogrel Bisulfate 75 MG 1 tablet Ora lly Once a day 08/02/2024 Active Mupirocin 2 % 1 application Environmental Conflict Manager ally Twice a day 11/20/2023 Active Rosuvastatin Calcium 20 MG 1 tablet Oral ly Once a day Active amLODIPine Besylate 10 MG as directed Or ally Once a day Active Symbicort 160-4.5 MCG/ACT 2 puffs Inhala tion Twice a day Active Ibuprofen 800 MG Oral Act henrry Pantoprazole Sodium 40 MG one tablet miguel angel ly Orally Once a day for 90 days Active Sildenafil Citrate 100 MG 1 tablet Orall y Once a day 05/15/2023 Active Pantoprazole Sodium 40 MG one tablet miguel angel ly Orally Once a day for 21 days 10/04/2024 Active Combivent Respimat 20-100 MCG/ACT 1 puff [...] Problem Status W/U Status Risk Notes Problem 589998253 Overweight (E66.3) Active confirmed He is very slightly overweight.His BMI is 25.1. We discussed his diet and nutrition we made a plan to lose weight at a rate of one half of a pound per week. Problem Hypertension (84593943) Hypertension (I10) Active confirmed His blood pressure is 148/82. No change in his regimen was made. I encouraged him to pursue aggressive sodium restriction. He was given an appointment to come to the office and recheck his blood pressure. Problem 36426656 Porphyria cutanea tarda (E80.1) Active confirmed The diagnosis o f porphyria was made by a plater helper at [facility]. He affirms that if he goes into direct sunlight. He will experience blisters and skin lesions. He is well versed in how to prevent this and has medications for his skin. Problem Benign prostatic hyperplasia (383000221) BPH (benign prostatic hyperplasia) (N40.0) Active confirmed He rises from sleep usually once a night occasionally twice. We have discussed lifestyle modifications he can make to reduce nocturia. Problem 93624685 Tobacco dependence (F17.200) Active confirmed He continues to smoke a package of cigarettes every day. We discussed the health consequences of this. His COPD has been stable and inactive recently. I made him aware of the smoking cessation programs and the local hospitals and this community. Problem COPD - Chronic obstructive pulmonary disease (36371350) COPD (chronic obstructive pulmonary disease) (J44.9) Active [...] lung cancer, COPD, oxygen dependence, etc. Problem 77422297 Pilonidal cyst (L05.91) Active confirmed He had an excision and repair of this cyst years ago. It is healed and no longer bothers him. Problem 686395326 Peripheral arterial disease (I73.9) Active confirmed His claudicatio n has improved. He recently underwent a revision of his left femoral-poplitea l bypass graft. The wound is now healed. He experiences some claudication in his right leg and is able to walk one block without stopping to rest. Problem 653040773 Lumbar radiculopathy, right (M54.16) Active confirmed He continues to have pain that comes from his lower lumbar spine and right paravertebral muscles that radiates into his right buttock. X-rays have shown degenerative disease. The pain is aggravated with walking more than 10 feet and lifting more than 10 pounds. He has been referred to [facility] in [facility] medicine for physical therapy injections imaging and evaluation for surgery. Problem 67645820 Acute diffuse otitis externa of both ears [...] Provider Diagnosis Ashish Huertas III, MD [address] [place] [address] [place] [phone] 10/26/2023 Ashish Huertas Tobacco dependence F17.200 ; COPD (chronic obstructive pulmonary disease) J44.9 ; Hypertension I10 ; BPH (benign prostatic hyperplasia) N40.0 ; Peripheral arterial disease I73.9 ; Porphyria cutanea tarda E80.1 ; Lumbar radiculopathy, right M54.16 and Acute diffuse otitis externa of both ears H60.313 Ashish Huertas III, MD [address] [place] [address] [place] [address] 11/17/2023 Ashish Huertas Tobacco dependence F17.200 ; COPD (chronic obstructive pulmonary disease) J44.9 ; Hypertension I10 ; Peripheral arterial disease I73.9 ; Acute diffuse otitis externa of both ears H60.313 ; Lumbar radiculopathy, right M54.16 and Porphyria cutanea tarda E80.1 Ashish Huertas III, MD [address] [place] [address] [place] [address] 11/20/2023 Ashish Huertas Tobacco dependence F17.200 ; BPH (benign prostatic hyperplasia) N40.0 ; Hypertension I10 ; Peripheral arterial disease I73.9 ; Lumbar radiculopathy, right M54.16 ; Acute diffuse otitis externa of both ears H60.313 and Porphyria cutanea tarda E80.1 Ashish Huertas III, MD [address] [place] [address] [place] [address] 11/27/2023 Ashish Huertas Tobacco dependence F17.200 ; Left low back pain, unspecified chronicity, unspecified whether sciatica present M54.50 ; Lumbar radiculopathy, right M54.16 ; Lumbar back pain M54.50 ; Hypertension I10 ; BPH (benign prostatic hyperplasia) N40.0 and Peripheral arterial disease I73.9 Ashish Huertas III, MD [address] [place] [address] [place] [address] 01/20/2024 Ashish Huertas Tobacco dependence F17.200 ; Peripheral arterial disease I73.9 ; Hypertension I10 ; Lumbar radiculopathy, right M54.16 ; BPH (benign prostatic hyperplasia) N40.0 and Porphyria cutanea tarda E80.1 Ashish Huertas III, MD [address] [place] [address] [place] [address] 02/09/2024 Ashish Huertas Tobacco dependence F17.200 ; Otitis of both ears H66.93 ; Peripheral arterial disease I73.9 ; BPH (benign prostatic hyperplasia) N40.0 ; Hypertension I10 and COPD (chronic obstructive pulmonary disease) J44.9 Ashish Huertas III, MD [address] [place] [address] [place] [address] 02/19/2024 Ashish Huertas Tobacco dependence F17.200 ; COPD (chronic obstructive pulmonary disease) J44.9 ; Peripheral arterial disease I73.9 ; Lumbar radiculopathy, right M54.16 ; Acute diffuse otitis externa of both ears H60.313 ; Porphyria cutanea tarda E80.1 ; Hypertension I10 and Overweight E66.3 Ashish Huertas III, MD [address] [place] [address] [place] [address] 04/29/2024 Ashish Huertas Tobacco dependence F17.200 ; Insect bite without infection W57.XXXA ; Hypertension I10 ; COPD (chronic obstructive pulmonary disease) J44.9 ; BPH (benign prostatic hyperplasia) N40.0 ; Peripheral arterial disease I73.9 ; Acute diffuse otitis externa of both ears H60.313 and Overweight E66.3 Ashish Huertas III, MD [address] [place] [address] [place] [address] 05/23/2024 Ashish Huertas Tobacco dependence F17.200 ; BPH (benign prostatic hyperplasia) N40.0 ; Overweight E66.3 ; COPD (chronic obstructive pulmonary disease) J44.9 ; Hypertension I10 ; Peripheral arterial disease I73.9 ; Porphyria cutanea tarda E80.1 and Acute diffuse otitis externa of both ears H60.313 Ashish Huertas III, MD [address] [place] [address] [place] [address] 08/02/2024 Ashish Huertas Infection of pelvis M86.9 ; Peripheral arterial disease I73.9 ; COPD (chronic obstructive pulmonary disease) J44.9 ; Lumbar radiculopathy, right M54.16 ; BPH (benign prostatic hyperplasia) N40.0 and Hypertension I10 Ashish Huertas III, MD [address] [place] [address] [place] [address] 08/15/2024 Ashish Huertas Infection of pelvis M86.9 ; Hypertension I10 ; BPH (benign prostatic hyperplasia) N40.0 ; COPD (chronic obstructive pulmonary disease) J44.9 ; Peripheral arterial disease I73.9 and Lumbar radiculopathy, right M54.16 Ashish Huertas III, MD [address] [place] [address] [place] [address] 10/28/2023 Ashish Huertas III, MD [address] [place] [address] [place] [address] 12/14/2023 Ashish Huertas III, MD [address] [place] [address] 02/09/2024 Ashish Huertas III, MD [address] [place] [address] [place] [address] 02/19/2024 Ashish Huertas III, MD [address] [place] [address] [place] [address] 02/24/2024 Ashish Huertas III, MD [address] [place] [address] [place] [address] 02/26/2024 Ashish Huertas III, MD [address] [place] [address] [place] [address] 02/26/2024 Ashish Huertas III, MD [address] [place] [address] [place] [address] 05/03/2024 Ashish Huertas Tobacco dependence F17.200 Ashish Huertas III, MD [address] [place] [address] [place] [address] 05/19/2024 Ashish Huertas III, MD [address] [place] [address] [place] [address] 07/01/2024 Ashish Huertas III, MD [address] [place] [address] [place] [address] 10/04/2024 Ashish Huertas Infection of pelvis M86.9 [...] and the local hospitals and this community. 10/04/2024 Infection of pelvis (ICD-10 - M86.9) He had an abscess in his perineal body on the left side. It is now resolved 10/26/2023 Hypertension (ICD-10 - I10) His blood [...] 10 pounds. He has been referred to [facility] spine and sports rehabilitation medicine [...] 10 pounds. He has been referred to [facility] in [facility] and sports rehabilitation medicine for [...] diagnosis of porphyria was made by a plater helper at [facility]. He affirms that if he goes [...] diagnosis of porphyria was made by a plater helper at [facility]. He affirms that if he goes [...] diagnosis of porphyria was made by a plater helper at [facility]. He affirms that if he goes [...] 10 pounds. He has been referred to [facility] spine and sports rehabilitation medicine for physical therapy injections imaging and evaluation for surgery. 10/26/2023 Lumbar radiculopathy, right (ICD-10 - M54.16) This pain has now resolved. 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 He affirms that if he goes into direct sunlight. He will experience blisters and skin lesions. He is well versed in how to prevent this and has medications for his skin. 11/20/2023 Porphyria cutanea tarda (ICD-10 - E80.1) The diagnosis of porphyria was made by a plater helper at [facility]. He affirms that if he goes [...] diagnosis of porphyria was made by a plater helper at [facility]. He affirms that if he goes [...] Details Provider Name:Ashish Huertas, 10/28/2024 01:30:00 PM, [address] [place] [address] [address], [place], [address], Insurance Providers Payer Name Payer Address Payer Phone Subscriber Number Group Number Insured Name Patient Relationship to Insured Coverage Start Date Coverage End Date [facility] [address] [place], [place] [id number] Sid Landeros Self - patient is the insured [address] [place] [address] [id number] Sid Landeros Self - patient is the insured Medical (General) History Medical History History ICD Code COPD (chronic obstructive pulmonary dise ase) J44.9 Hypertension I10 Erectile dysfunction Peripheral vascular disease Environmental allergies History of repaired pilonidal cyst Excised lipoma, left triceps, age 8 Porphyria cutanea [place], Dr. Brady, [facility] Tobacco dependence Covid19 infection 2021 Lumbar radiculopathy {'Porphyria': 'No current is sues', 'Infection on backside': 'Resolved with antibiotics'} Surgical History Surgery Date(Month/Year) Femoral -popliteal arterial bypass @[facility] 05/2022 Esophagogastricduodoscopy Excision of lipoma, left triceps, age 8 Repair of pilonidal cyst Fracture of 2 fingers Colonoscopy, [facility], Dr. Ramos Arterial Bipass 05/2022 No history Hospitalization History Reason Date(Month/Year) No history
== END 2024-10-24 18:37 ==
PROVIDERS: PCP Internal Medicine Medical Oncology; Visit Provider Internal Medicine
DX: R79.89 Other specified abnormal findings of blood chemistry (principal); I65.23 Occlusion and stenosis of bilateral carotid arteries; I73.9 Peripheral vascular disease, unspecified; E83.110 Hereditary hemochromatosis; J41.0 Simple chronic bronchitis; D12.6 Benign neoplasm of colon, unspecified; Z86.0100 Personal history of colon polyps, unspecified
CPT/HCPCS: 99214

== ENCOUNTER 2024-11-29 10:27 | Outpatient (REF) | payer BC, OTHER, SELFPAY ==
--- NOTE | ~2024-11-29 | US_ITS ---
EXAMINATION: US ABDOMEN COMPLETE CLINICAL INFORMATION: Abnormal LFTs.. COMPARISON: None available. TECHNIQUE: Real-time imaging of the abdominal viscera. FINDINGS: PANCREAS: Visualized portions are unremarkable. ABDOMINAL AORTA: The proximal, mid, and distal segments are normal in caliber. INFERIOR VENA CAVA: Visualized portions are normal. LIVER: The liver is normal in size. The liver contour is normal. Parenchymal echogenicity is normal. No focal hepatic lesion. There is no intrahepatic biliary duct dilatation seen. GALLBLADDER: There is nonmobile bilateral multiple echogenic nonshadowing lesions along the inner gallbladder wall suggestive polyps. The largest measuring 1.0 x 0.6 x 0.7 cm. No echogenic stone or wall thickening. The wall thickness is 0.2 cm. COMMON BILE DUCT: Normal in caliber measuring 0.2 cm in diameter. RIGHT KIDNEY: No hydronephrosis. No renal calculi or focal parenchymal lesions. The kidney measures 12.2 cm in maximum dimension. There is small parenchymal junctional defect in the midpole lateral cortex. LEFT KIDNEY: No hydronephrosis. No renal calculi or focal parenchymal lesions. The kidney measures 11.9 cm in maximum dimension. SPLEEN: The spleen measures 8.8 cm in maximum dimension. FREE FLUID: None. US/US abdomen complete IMPRESSION: Gallbladder polyps. No echogenic gallstones are wall thickening. Electronically signed by: Naman Roth MD 11/30/2024 07:39 AM KATY
--- OUTSIDE RECORDS SUMMARY | 2024-11-29 12:44 | XMS_ITS ---
Author Organization Ashish Huertas III, MD Address [address] [place] [address] Care Team Providers Care Transplant Registered Nurse Name Role Phone Ashish Huertas Primary Care Provider REASON FOR VISIT told patient to call Social History Sex Assigned At : Social History Observation Description Sex Assigned At Male Encounters Encounter Location Date Provider Diagnosis Ashish Huertas III, MD [address] [place] [address] [place] [address] 11/21/2024 Ashish Huertas Plan Of Treatment Next Appt Details Provider Name:Ashish Huertas, 01/23/2025 02:30:00 PM, [address] [place] [address] [place], [address], Provider Name:Ashish Huertas, 10/31/2025 02:00:00 PM, [address] [place] [address] [place], [address], Progress Notes * Sid LANDEROS MDOB: 2 (64 yo M)Acc No.[id number]:11/21/2024 Patient:?Sid LANDEROS :1960???Age:64 Y???Sex:Male Address:[address] [place], [address] * true * Date:? Generated for Printi ng/Falorig/eTransmitting on:?11/29/2024 12:44 PM EST
--- OUTSIDE RECORDS SUMMARY | 2024-11-29 12:44 | XMS_ITS ---
Author Organization Ashish Huertas III, MD Address [address] [facility] [place] [address] Care Team Providers Care Configuration Developer Name Role Phone Ashish Huertas Primary Care Provider [phone] Allergies Allergen (clinical drug ingredient) Drug/Non Drug Allergy documented on EMR Reaction Allergy Type Onset Date Status doxycycline Doxycycline Unknown Drug Allergy Act henrry REASON FOR VISIT bronchitis, Cough, COPD, Tobacco dependence, Porphyria Medications Medication SIG (Take, Route, Frequency, Duration) Notes Start Date End Date Status Mupirocin 2 % 1 application Body And Fender Mechanic ally Twice a day 11/20/2023 Active Clopidogrel Bisulfate 75 MG 1 tablet Orally Once a day 08/02/2024 Active Sildenafil Citrate 100 MG 1 tablet as ne eded Orally Once a day 10/28/2024 Active Symbicort 160-4.5 MCG/ACT 2 puffs Inhala tion Twice a day Active Sildenafil Citrate 100 MG 1 tablet Orall y Once a day 05/15/2023 Active Rosuvastatin Calcium 20 MG 1 tablet Oral ly Once a day Active Varenicline Tartrate (Starter) 0.5 MG X 11 & 1 MG X 42 as directed Orally as directed 01/30/2023 Active Combivent Respimat 20-100 MCG/ACT 1 puff as needed Inhalation every 6 hrs Active Ibuprofen 800 MG Oral Act henrry traMADol HCl 50 MG 1 tablet Orally ever y 6 hours prn back pain 12/23/2022 Active Pantoprazole Sodium 40 MG one tablet miguel angel ly Orally Once a day Active Azithromycin 250 MG take the tablets by mouth Orally 2 Tablets on the first day, one tablet the rest of the days for 5 days 11/15/2024 Active Pantoprazole Sodium 40 MG one tablet miguel angel ly Orally Once a day 10/04/2024 Active predniSONE 20 MG 1 tablet with food o r milk Orally Once a day for 10 days 11/15/2024 12/05/2024 Active amLODIPine Besylate 10 MG as directed Or ally Once a day Active Social History Tobacco Use: Social History Observation Description Date Details (start date - stop date) Current Smoker NA - NA Sex Assigned At : Social History Observation Description Sex Assigned At Male Tobacco Use/Smoking Question Answer Notes Patient is a current smoker Tobacco Control (Standard) Question Answer Notes Tobacco use: Current smoker How often do you smoke cigarettes? Every day How many cigarettes a day do you smoke? 6-10 How soon after you wake up d o you smoke your first cigarette? Within 5 minutes Are you interested in quitting? Ready to quit Additional Findings: Tobacco user Light cigarett e smoker (1-9 cigs/day) Problems Problem Type SNOMED Code ICD Code Onset Dates Problem Status W/U Status Risk Notes Problem Hyperlipidemia (60716751) Hyperlipidemia (E78.5) Active confirmed Comprehensive blood work with a fasting lipid profile has been ordered. Problem [id number] Acute bronchitis due to other specified organisms (J20.8) Active confirmed He is producing green phlegm and says he is wheezing. The inhaler is helping. He was given a Zithromax and prednisone with a follow-up visit. Encounters Encounter Location Date Provider Diagnosis Ashish Huertas III, MD [address] [place] [address] [place] [address] 11/15/2024 Ashish Huertas Acute bronchitis due to other specified organisms J20.8 ; COPD (chronic obstructive pulmonary disease) J44.9 ; Tobacco dependence F17.200 ; Lumbar radiculopathy, right M54.16 ; Porphyria cutanea tarda E80.1 ; Hyperlipidemia E78.5 ; Hypertension I10 and Peripheral arterial disease I73.9 Assessments Encounter Date Diagnosis (ICD Code) Assessment Notes Treat ment Notes Treatment Clinical Notes 11/15/2024 Acute bronchitis due to other specified organisms (ICD-10 - J20.8) He is producing green phlegm and says he is wheezing. The inhaler is helping. He was given a Zithromax and prednisone with a follow-up visit. 11/15/2024 COPD (chronic obstructive pulmonary disease) (ICD-10 - [...] include lung cancer, COPD, oxygen dependence, etc. 11/15/2024 Tobacco dependence (ICD-10 - F17.200) He continues to smoke a package of cigarettes every day. We discussed the health consequences of this. His COPD has been stable and inactive recently. I made him aware of the smoking cessation programs and the local hospitals and this community. 11/15/2024 Lumbar radiculopathy, right (ICD-10 - M54.16) He continues to have pain that comes from his lower lumbar spine and right paravertebral muscles that radiates into his right buttock. X-rays have shown degenerative disease. The pain is aggravated with walking more than 10 feet and lifting more than 10 pounds. He has been referred to [facility] spine and sports rehabilitation medicine for physical therapy injections imaging and evaluation for surgery. 11/15/2024 Porphyria cutanea tarda (ICD-10 - E80.1) The diagnosis of porphyria was made by a pilot can router at [facility]. He affirms that if he goes into direct sunlight. He will experience blisters and skin lesions. He is well versed in how to prevent this and has medications for his skin. 11/15/2024 Hyperlipidemia (ICD-10 - E78.5) Comprehensive blood work with a fasting lipid profile has been ordered. 11/15/2024 Hypertension (ICD-10 - I10) His blood pressure has been 142/70. No change in his regimen was made. I encouraged him to pursue aggressive sodium restriction. He was given an appointment to come to the office and recheck his blood pressure. 11/15/2024 Peripheral arterial disease (ICD-10 - I73.9) His claudication is stable at 1 block. He recently saw the vascular surgeon. He recently underwent a revision of his left femoral-popliteal bypass graft. The wound is now healed. He experiences some claudication in his right leg and is able to walk one block without stopping to rest. Plan Of Treatment Medication Medication Name Sig Start Date Stop Date Notes Mupirocin 2 % 1 application Body And Fender Mechanic ally Twice a day 11/20/2023 Clopidogrel Bisulfate 75 MG 1 tablet Orally Once a day 01/2024 Sildenafil Citrate 100 MG 1 tablet as ne eded Orally Once a day 10/28/2024 Symbicort 160-4.5 MCG/ACT 2 puffs Inhala tion Twice a day Sildenafil Citrate 100 MG 1 tablet Orally Once a day 05/15 Rosuvastatin Calcium 20 MG 1 tablet Orally Once a day Varenicline Tartrate (Starter) 0.5 MG X 11 & 1 MG X 42 as directed Orally as directed 01/30/2023 Combivent Respimat 20-100 MCG/ACT 1 puff as needed Inhalation every 6 hrs Ibuprofen 800 MG Oral traMADol HCl 50 MG 1 tablet Orally ever y 6 hours prn back pain 12/23/2022 Pantoprazole Sodium 40 MG one tablet miguel angel ly Orally Once a day Azithromycin 250 MG take the tablets by mouth Orally 2 Tablets on the first day, one tablet the rest of the days for 5 days 11/15/2024 Pantoprazole Sodium 40 MG one tablet miguel angel ly Orally Once a day 10/04/2024 predniSONE 20 MG 1 tablet with food o r milk Orally Once a day for 10 days 11/15/2024 12/05/2024 amLODIPine Besylate 10 MG as directed Or ally Once a day Next Appt Details Follow Up: Tomorrow morning, Reason: To report on the patient's condition Provider Name:Ashish Huertas, 01/23/2025 02:30:00 PM, [address] [place] [address] [address], [place], [address], Provider Name:Ashish Huertas, 10/31/2025 02:00:00 PM, [address] [place] [address] [address], [place], [address], Progress Notes * Sid LANDEROS MDOB: 2 (64 yo M)Acc No.[id number]:11/15/2024 Patient:?Sid LANDEROS Provider:?Ashish Huertas MD :1960???Age:63 Y???Sex:Male Danny e:11/15/2024 Address:[address] [place], [place] [address], [id number] Subjective: * Chief Complaints: * ???BronchitisCoughCOPDTobacc o dependencePorphyria * HPI: ???:?Telehealth?Location of provider rendering services:?{...} [address] [place] [address] ?Location of patient:?address listed in demographics for today's visit ?Patient identification confirmed using:?Name, ?Telehealth method:?Telephone only. Patient not visible to care provider. ?Consent:?Patient verbally consented to treatment, Patient verbally consented to billing insurance company, Patient informed of any privacy concerns related to method of visit ?Total time spent with patient (mins)?15 ? The patient, a 63-year-old male, reported experiencing symptoms of bronchitis, which he had previously experienced in August. He described having difficulty breathing, coughing, and producing a lot of phlegm. He also mentioned having a headache earlier, which was relieved by taking Tylenol. The patient's phlegm was described as greenish in color. He reported that his symptoms were worse than the previous day, and he was concerned that his bronchitis was returning. He had been using a Symbicort inhaler for his condition. The patient reported that he was able to breathe comfortably while resting. * ROS:?General/Constitutional:?pain?only normal aches and pains.?Chills?denies.?Fatigue?admits.?Fever?denies.?ENT:?Decreased hearing?denies.?Respiratory:?Cough?non-productive.?Cardiovascular:?Chest pain with exertion?denies.?Dyspnea on exertion?denies.?Shortness of breath?with exertion.?Gastrointestinal:?Constipation?denies.?Decreased appetite?denies.?Diarrhea?denies.?Heartburn?occasional.?Nausea?denies.?Rectal bleeding?denies.?Vomiting?denies.?Hematology:?bruising?denies.?petechiae?denies.?Swollen glands?none have been noted.?Genitourinary:?Frequent urination?once a night.?Musculoskeletal:?Muscle aches?denies.?Painful joints?denies.?Sciatica?denies.?Weakness?denies.?Skin:?Itching?denies.?Rash?denies.?Skin lesion(s)?denies.?Neurologic:?Difficulty speaking?denies.?Dizziness?denies.?Headache?denies.?Low back pain?denies.?Psychiatric:?Depressed mood?denies.? * Medical History:? * Surgical History:?Femoral -p opliteal arterial bypass @[facility] 05/2022Esophagogastricduodoscopy Excision of lipoma, left triceps, age 8 Repair of pilonidal cyst Fracture of 2 fingers Colonoscopy, [facility], Dr. Ramos Arterial Bipass 05/2022No history [...] Social History:?Tobacco Use:?Tobacco Use/Smoking?Patient is a?current smoker ?Tobacco Control (Standard)?Tobacco use:?Current smoker ?How often do you smoke cigarettes??Every day ?How many cigarettes a day do you smoke??6-10 ?How soon after you wake up do you smoke your first cigarette??Within 5 minutes ?Are you interested in quitting??Ready to quit ?Additional Findings: Tobacco user?Light cigarette smoker (1-9 cigs/day) ???Smoking - Reduced to 3 cigarettes a day {'Smoking': '3 cigarettes a day'} The patient is a smoker but is trying to quit. He has reduced his smoking significantly. * Medications:?TakingPantopraz ole Sodium 40 MG Tablet Delayed Release one tablet daily Orally Once a day Pantoprazole Sodium 40 MG Tablet Delayed Release one tablet daily Orally Once a day amLODIPine Besylate 10 MG Tablet as directed [...] Tablet 1 tablet Orally Once a day Mupirocin 2 % Ointment 1 application Externally Twice a day Clopidogrel Bisulfate 75 MG Tablet 1 tablet Orally Once a day Sildenafil Citrate 100 MG Tablet 1 tablet as needed Orally Once a day , stop date 01/08/2025Taking Pantoprazole Sodium 40 MG Tablet Delayed Release one tablet daily Orally Once a day Taking Pantoprazole Sodium 40 MG Tablet Delayed Release one tablet daily Orally Once a day Taking amLODIPine Besylate 10 MG Tablet as directed Orally Once a day Taking Rosuvastatin Calcium 20 MG Tablet 1 tablet Orally Once a day Taking Varenicline Tartrate (Starter) 0.5 MG X 11 & 1 MG X 42 Tablet Therapy Pack as directed Orally as directed Taking traMADol HCl 50 MG Tablet 1 tablet Orally every 6 hours prn back pain Taking Combivent Respimat 20- 100 MCG/ACT Aerosol Solution 1 puff as needed Inhalation every 6 hrs Taking Ibuprofen 800 MG Tablet Oral Taking Symbicort 160-4.5 MCG/ACT Aerosol 2 puffs Inhalation Twice a day Taking Sildenafil Citrate 100 MG Tablet 1 tablet Orally Once a day Taking Mupirocin 2 % Ointment 1 application Externally Twice a day Taking Clopidogrel Bisulfate 75 MG Tablet 1 tablet Orally Once a day Taking Sildenafil Citrate 100 MG Tablet 1 tablet as needed Orally Once a day , stop date 01/08/2025 * Allergies:?Doxycycline Objective: * Vitals:? Assessment: * Assessment: 1.?Acute bronchitis due to o ther specified organisms - J20.8 (Primary)???Notes :He is producing green phlegm and says he is wheezing.? The inhaler is helping.? He was given a Zithromax and prednisone with a follow-up visit.???2.?COPD (chronic obstructive pulmonary disease) - J44.9???Notes :His [...] which include lung cancer, COPD, oxygen dependence, etc.???3.?Tobacco dependence - F17.200???Notes :He continues to smoke a package of cigarettes every day. We discussed the health consequences of this. His COPD has been stable and inactive recently. I made him aware of the smoking cessation programs and the local hospitals and this community.???4.?Lumbar radiculopathy, right - M54.16???Notes :He continues to have pain that comes from his lower lumbar spine and right paravertebral muscles that radiates into his right buttock. X-rays have shown degenerative disease. The pain is aggravated with walking more than 10 feet and lifting more than 10 pounds. He has been referred to [facility] spine and sports rehabilitation medicine for physical therapy injections imaging and evaluation for surgery.???5.?Porphyria cutanea tarda - E80.1???Notes :The diagnosis of porphyria was made by a pilot can router at [facility]. He affirms that if he goes into direct sunlight. He will experience blisters and skin lesions. He is well versed in how to prevent this and has medications for his skin.???6.?Hyperlipidemia - E78.5???Notes :Comprehensive blood work with a fasting lipid profile has been ordered.???7.?Hypertension - I10???Notes :His blood pressure has been 142/70. No change in his regimen was made. I encouraged him to pursue aggressive sodium restriction. He was given an appointment to come to the office and recheck his blood pressure.???8.?Peripheral arterial disease - I73.9???Notes :His claudication is stable at 1 block. He recently saw the vascular surgeon. He recently underwent a revision of his left femoral-popliteal bypass graft. The wound is now healed. He experiences some claudication in his right leg and is able to walk one block without stopping to rest.??? Plan: * Treatment: 2.?Others? Start Azithromycin Tablet, 250 MG, take the tablets by mouth, Orally, 2 Tablets on the first day, one tablet the rest of the days, 5 days, 6, Refills 0;?Start predniSONE Tablet, 20 MG, 1 tablet with food or milk, Orally, Once a day, 10 days, 10 Tablet, Refills 1.?? * Procedure Codes:? * Preventive Medicine:? ??Counseling:?Smoking/Tobacco Use?Patient counseled on the dangers of tobacco use and urged to quit.?11/14/2024 ?Patient Lifestyle Goals?Patient wants to quit ?Treatment Goals?Cut down by 1 cigarette a week, Set a quit date ?Barriers?Stress, Social smoker ?Self-Management Plan?Make a plan to cut down number of cigarettes over time and set a date to work towards quitting ??COPD Care Plan:?Patient Lifestyle Goals?Relieve symptoms and improve quality of life, Reduce number of ED and hospitalizations, Be able to be more active with friends and family.?Treatment Goals?Quit Smoking.?Barriers?no barriers.?Self-Managment Goals?Make a plan for quitting smoking.? * Follow Up:?Tomorrow morning (Reason: To report on the patient's condition) * Images: * Sign off status: Completed true * Provider:?Ashish Huertas MD Date:?10/29 Generated for Vanessa rodriguez/Namita/Lesly on:?11/29/2024 12:44 PM EST History and Physical Notes * HPI (History of Present Illness) Category Sub-Category Detail Notes Telehealth Location of [facility] rendering services:: {...} [address] [place] [id number] Location of patient:: address listed in demographics for today's visit Patient identification confirmed using:: Name, Telehealth method:: Telephone only. Fabiola ent not visible to care provider. Consent:: Patient verbally c onsented to treatment, Patient verbally consented to billing insurance company, Patient informed of any privacy concerns related to method of visit Total time spent with patient (mins): 15
--- OUTSIDE RECORDS SUMMARY | 2024-11-29 12:44 | XMS_ITS | Patient Health Record ---
Author Organization Ashish Huertas III, MD Address [address] [facility] [place] [facility] [place] [address] Care Team Providers Care Software Development Analyst Name Role Phone Ashish Huertas Primary Care Provider [phone] Allergies Allergen (clinical drug ingredient) Drug/Non Drug Allergy documented on EMR Reaction Allergy Type Onset Date Status doxycycline Doxycycline Unknown Drug Allergy Act henrry Results Component Value Reference Range Notes URINE DIP STICK Reviewed date:10/28/2024 02:35:39 PM Interpretation: Performing Lab: Notes/Report: SG 1.005 1.005 - 1.025 pH 7.0 5.0 - 9.0 JAYLYN Neg Negative - NIT Neg Negative - PRO 15 Negative - Trace GLU Neg Negative - KET Neg Negative - UBG 0.2 0.1 - 1.8 DIOR 1 0.2 - 1.3 BLD Neg Negative - XR thoracic spine 2V Reviewed date:01/31/2024 02:54:18 PM Interpretation: Performing Lab: Notes/Report: [address] [address] XRay Report Signed Patient: Sid Landeros MR#: [id number] : 1960 Acct:[id number] Age/Sex: 63 / M ADM Date: 11/27/23 Loc: HO.XRAY Attending Dr: Ashish Huertas MD Ordering Physician: Ashish Huertas MD Date of Service: 11/30/23 Procedure(s): XR thoracic spine 2V Accession Number(s): [id number] cc: Ashish Huertas MD EXAMINATION: XR THORACIC [...] in OV> 11/30/23 1132 DD/ 0945 TD/TT: Tilting [employer] Band Sawyer: [place] [address] XRay Report Signed Patient: Marlo Landeros MR#: [id number] : 1960 Acct:[id number] Age/Sex: 63 / M ADM Date: 11/27/23 Loc: HO.XRAY Attending Dr: Ashish Huertas MD Ordering Physician: Ashish Huertas MD Date of Service: 11/30/23 Procedure(s): XR thoracic spine 2V Accession Number(s): [id number] cc: Ashish Huertas MD EXAMINATION: XR THORACIC [...] in OV> 11/30/23 1132 DD/ 0945 TD/TT: Tilting [employer] Band Sawyer: US KAI complete Reviewed date:02/20/2024 04:43:15 AM Interpretation: Performing Lab: Notes/Report: [address] [address] Ultrasound Report Signed Patient: Sid Landeros MR#: [id number] : 1960 Acct:[id number] Age/Sex: 63 / M ADM Date: 02/15/24 Loc: HO. Attending Dr: Jhony Orr MD Ordering Physician: Jhony Orr MD Date of Service: 02/15/24 Procedure(s): US KAI complete Accession Number(s): [id number] cc: Ashish Huertas MD; Jhony Orr MD [...] in OV> 02/17/24 1435 DD/ 0928 TD/TT: Tilting Head Band Sawyer: [address] [address] Ultrasound Report Signed Patient: Marlo Landeros MR#: [id number] : 1960 Acct:[id number] Age/Sex: 63 / M ADM Date: 02/15/24 Loc: .US Attending Dr: Jhony Orr MD Ordering Physician: Jhony Orr MD Date of Service: 02/15/24 Procedure(s): US KAI complete Accession Number(s): [id number] cc: Ashish Huertas MD; Jhony Orr MD [...] in OV> 02/17/24 1435 DD/ 0928 TD/TT: Tilting [employer] Sawyer: US arterial duplex LE BI Reviewed date:02/20/2024 04:43:15 AM Interpretation: Performing Lab: Notes/Report: [address] [address] Ultrasound Report Signed Patient: Sid Landeros MR#: [id number] : 1960 Acct:[id number] Age/Sex: 63 / M ADM Date: 02/15/24 Loc: HO.US Attending Dr: Jhony Orr MD Ordering Physician: Jhony Orr MD Date of Service: 02/15/24 Procedure(s): US arterial duplex LE BI Accession Number(s): [id number] cc: Ashish Huertas MD; Jhony Orr MD [...] in OV> 02/17/24 1435 DD/ 0915 TD/TT: Tilting [employer] Sawyer: [place] [address] Ultrasound Report Signed Patient: Marlo Landeros MR#: [id number] : 1960 Acct:[id number] Age/Sex: 63 / M ADM Date: 02/15/24 Loc: . Attending Dr: Jhony Orr MD Ordering Physician: Jhony Orr MD Date of Service: 02/15/24 Procedure(s): US arterial duplex LE BI Accession Number(s): [id number] cc: Ashish Huertas MD; Jhony Orr MD [...] in OV> 02/17/24 1435 DD/ 0915 TD/TT: Tilting [employer] Band Sawyer: Complete Blood Count Auto Di ff Reviewed date:05/15/2024 08:55:39 AM Interpretation: Performing Lab:[facility], [address] [place] [phone] Notes/Report: White Blood Count 6.6 4.8-10.8 X10*3/uL [...] Panel Reviewed date:05/15/2024 08:55:39 AM Interpretation: Performing Lab:[facility], [address] [place] [phone] Notes/Report: Sodium 132 135-145 mmol/L Potassium 3.8 [...] Glomerular Filt Rate > 60 NOTE: For -Slovenian individuals, multiply the result by 1.210. Chronic [...] ([place]) Reviewed date:05/15/2024 08:55:39 AM Interpretation: Performing Lab:[facility], [address] [place] [phone] Notes/Report: IDNOW Serial# [id number] COVID-19 Test Negative Negative COVID-19 Note See [...] with other viruses. Testing facilities within the [facility] and its territories are required to [...] by authorized laboratories. Testing performed on the [employer] ID NOW utilizing NAAT. Influenza A B2 ID NOW (Abbot t) Reviewed date:05/15/2024 08:55:39 AM Interpretation: Performing Lab:[facility], [address] [place] [phone] Notes/Report: IDNOW Serial# [id number] Influenza A Negative Negative Influenza B2 Negative [...] date:05/15/2024 08:55:39 AM Interpretation: Performing Lab: Notes/Report: [address] [place] [address] XRay Report Signed Patient: Sid Landeros MR#: [id number] : 1960 Acct:[id number] Age/Sex: 63 / M ADM Date: 02/28/24 Loc: HO.ED Attending Dr: Ordering Physician: Generic ED Physician Date of Service: 02/28/24 Procedure(s): XR chest 2V Accession Number(s): [id number] cc: Ashish Huertas MD; Generic ED Physician [...] MD in OV> 02/28/[address] DD/ 08 TD/TT: Tilting [employer] Band Sawyer: [place] [address] XRay Report Signed Patient: Marlo Landeros MR#: [id number] : 1960 Acct:[id number] Age/Sex: 63 / M ADM Date: 02/28/24 Loc: .ED Attending Dr: Ordering Physician: Generic ED Physician Date of Service: 02/28/24 Procedure(s): XR [address] [facility] 2V Accession Number(s): [id number] cc: Ashish Huertas MD; Generic ED Physician [...] Agatha Patel MD in OV> 02/28/[address] DD/ 0806 TD/TT: Tilting [employer] Band Sawyer: [facility] Liver Panel Reviewed date:06/27/2024 06:04:41 AM Interpretation: Performing Lab:[facility], [address] [place] [phone] Notes/Report: Bilirubin Total 0.6 0.0-1.0 mg/dL Bilirubin Direct 0.3 0.0-0.5 mg/dL Aspartate Amino Transferase 40 5-37 U/L Alanine Aminotransferase 31 0-40 U/L Total Protein 7.8 6.5-8.0 g/dL Albumin Level 4.4 3.5-5.0 g/dL Alkaline Phosphatase 110 39-117 U/L Lipid Panel Reviewed date:06/27/2024 06:04:41 AM Interpretation: Performing Lab:[facility], [address] [place] [phone] Notes/Report: Triglycerides 39 <150 mg/dL Desirable Triglyceride: [...] date:09/24/2024 07:13:25 AM Interpretation: Performing Lab: Notes/Report: [address] [address] Ultrasound Report Signed Patient: Sid Landeros MR#: [id number] : 1960 Acct:[id number] Age/Sex: 63 / M ADM Date: 08/22/24 Loc: HO.US Attending Dr: Jhony Orr MD Ordering Physician: Jhony Orr MD Date of Service: 08/22/24 Procedure(s): US arterial duplex BI w/ KAI Accession Number(s): [id number] cc: Ashish Huertas MD; Jhony Orr MD [...] by: Sultana Beaver MD 09/23/2024 06:31 PM [facility] Dictated By: Twyla Beaver Signed By: <Electronically signed by Twyla Beaver in OV> 09/23/24 1831 DD/ 1133 TD/TT: 08/22/24 1210 Tilting [employer] Band Sawyer: [address] [address] Ultrasound Report Signed Patient: Marlo Landeros MR#: [id number] : 1960 Acct:[id number] Age/Sex: 63 / M ADM Date: 08/22/24 Loc: .US Attending Dr: Jhony Orr MD Ordering Physician: Jhony Orr MD Date of Service: 08/22/24 Procedure(s): US arterial duplex BI w/ KAI Accession Number(s): [id number] cc: Ashish Huertas MD; Jhony Orr MD [...] by: Sultana Beaver MD 09/23/2024 06:31 PM EST Dictated By: Twyla Beaver Signed By: <Electronically signed by Twyla Beaver in OV> 09/23/24 1831 DD/ 1133 TD/TT: 08/22/24 1210 Tilting Head Band Sawyer: Reason For Referral No Information Medications Medication SIG (Take, Route, Frequency, Duration) Notes Start Date End Date Status Rosuvastatin Calcium 20 MG 1 tablet Oral ly Once a day Active Varenicline Tartrate (Starter) 0.5 MG X 11 & 1 MG X 42 as directed Orally as directed 01/30/2023 Active Mupirocin 2 % 1 application Customer Engagement Manager ally Twice a day 11/20/2023 Active Pantoprazole Sodium 40 MG one tablet miguel angel ly Orally Once a day Active Clopidogrel Bisulfate 75 MG 1 tablet Orally Once a day 08/02/2024 Active Pantoprazole Sodium 40 MG one tablet miguel angel ly Orally Once a day 10/04/2024 Active Sildenafil Citrate 100 MG 1 tablet as ne eded Orally Once a day 10/28/2024 Active amLODIPine Besylate 10 MG as directed Or ally Once a day Active Azithromycin 250 MG take the tablets by mouth Orally 2 Tablets on the first day, one tablet the rest of the days for 5 days 11/15/2024 Active predniSONE 20 MG 1 tablet with food o r milk Orally Once a day for 10 days 11/15/2024 12/05/2024 Active Combivent Respimat 20-100 MCG/ACT 1 puff as needed Inhalation every 6 hrs Active Ibuprofen 800 MG Oral Act henrry Symbicort 160-4.5 MCG/ACT 2 puffs Inhala tion Twice a day Active Sildenafil Citrate 100 MG 1 tablet Orall y Once a day 05/15/2023 Active traMADol HCl 50 MG 1 tablet Orally ever y 6 hours prn back pain 12/23/2022 Active Immunizations Vaccine Route Administration Date Status Comme nts Tdap Unknown 11/28/2013 Administered PPV 23 Unknown 10/04/2020 Administered COVID 19 Moderna Unknown 03/27/2021 Administered PPV 23 Unknown 09/29/2019 Administered Influenza, quad Unknown 07/25/2021 Administered COVID 19 Moderna Unknown 02/27/2021 Administered Flu-IIv4 Unknown 08/12/2017 Administered Flu-IIv4pf Unknown 09/29/2019 Administered Social History Tobacco Use: Social History [...] user Light cigarett e smoker (1-9 cigs/day) AUDIT-C (Standard) Question Answer Notes Did you have a drink contain ing alcohol in the past year? Yes How often did you have six o r more drinks on one occasion in the past year? 2 to 3 times per week (3 points) How many drinks did you have on a typical day when you were drinking in the past year? 1 or 2 drinks (0 point) How often did you have a dri nk containing alcohol in the past year? Never (0 point) Points 3 Interpretation Negative Problems Problem Type SNOMED Code ICD Code Onset Dates Problem Status W/U Status Risk Notes Problem Hyperlipidemia (61331429) Hyperlipidemia (E78.5) Active confirmed Comprehensive blood work with a fasting lipid profile has been ordered. Problem 529586631 Overweight (E66.3) Active confirmed He is very slightly overweight.His BMI is 25.1. We discussed his diet and nutrition we made a plan to lose weight at a rate of one half of a pound per week. Problem Hypertension (23844566) Hypertension (I10) Active confirmed His blood pressure has been 142/70. No change in his regimen was made. I encouraged him to pursue aggressive sodium restriction. He was given an appointment to come to the office and recheck his blood pressure. Problem 48775280 Porphyria cutanea tarda (E80.1) Active confirmed The diagnosis of porphyria was made by a sheet metal insulator at [facility]. He affirms that if he goes into direct sunlight. He will experience blisters and skin lesions. He is well versed in how to prevent this and has medications for his skin. Problem 640449155 Acute bronchitis due to other specified organisms (J20.8) Active confirmed He is producing green phlegm and says he is wheezing. The inhaler is helping. He was given a Zithromax and prednisone with a follow-up visit. Problem Benign prostatic hyperplasia (223275991) BPH (benign prostatic hyperplasia) (N40.0) Active confirmed He rises from sleep usually once a night occasionally twice. We have discussed lifestyle modifications he can make to reduce nocturia. Problem 54575308 Tobacco dependence (F17.200) Active confirmed He continues to smoke a package of cigarettes every day. We discussed the health consequences of this. His COPD has been stable and inactive recently. I made him aware of the smoking cessation programs and the local hospitals and this community. Problem COPD - Chronic obstructive pulmonary disease (17672208) COPD (chronic obstructive pulmonary disease) (J44.9) Active confirmed His breathi ng is currently unimpaired. He denies any wheezing or shortness of breath with activities of daily life. He continues to smoke cigarettes, however. We discussed smoking cessation. I reviewed with him the importance of reducing and eliminating the use of tobacco. We have reviewed the health consequences of continued smoking, which include lung cancer, COPD, oxygen dependence, etc. Problem 70312968 Pilonidal cyst (L05.91) Active confirmed He had an excision and repair of this cyst years ago. It is healed and no longer bothers him. Problem 427315276 Peripheral arterial disease (I73.9) Active confirmed His claudication is stable at 1 block. He recently saw the vascular surgeon. He recently underwent a revision of his left femoral-poplite al bypass graft. The wound is now healed. He experiences some claudication in his right leg and is able to walk one block without stopping to rest. Problem 995358075 Lumbar radiculopathy, right (M54.16) Active confirmed He continues to have pain that comes from his lower lumbar spine and right paravertebral muscles that radiates into his right buttock. X-rays have shown degenerative disease. The pain is aggravated with walking more than 10 feet and lifting more than 10 pounds. He has been referred to [facility] spine and sports rehabilitation medicine for physical therapy injections imaging and evaluation for surgery. Problem 16053468 Acute diffuse otitis externa of both ears (H60.313) Active confirmed The left ear was primarily involved. The otic canalWas uninvolved. The tympanic membrane was normal. A prescription for Bactrim was given to him. Vital Signs Heart Rate 89 /min 10/28/2024 Temperature 97.7 degrees Fahrenheit 10/28/2024 Blood pressure diastolic 70 mm Hg 10/28/2024 Height 70 in 10/28/2024 Blood pressure systolic 142 mm Hg 10/28/2024 Weight 172 lbs 10/28/2024 BMI 24.68 kg/m2 10/28/2024 Encounters Encounter Location Date Provider Diagnosis Ashish Huertas III, MD [address] [place] [address] [place] [address] 01/20/2024 Ashish Huertas Tobacco dependence F17.200 ; Peripheral arterial disease I73.9 ; Hypertension I10 ; Lumbar radiculopathy, right M54.16 ; BPH (benign prostatic hyperplasia) N40.0 and Porphyria cutanea tarda E80.1 Ashish Huertas III, MD [address] [place] [address] [place] [address] 02/09/2024 Ashish Huertas Tobacco dependence F17.200 ; Otitis of both ears H66.93 ; Peripheral arterial disease I73.9 ; BPH (benign prostatic hyperplasia) N40.0 ; Hypertension I10 and COPD (chronic obstructive pulmonary disease) J44.9 Ashish Huertas III, MD [address] [place] [address] [place] [address] 02/19/2024 Ashish Huertas Tobacco dependence F17.200 ; COPD (chronic obstructive pulmonary disease) J44.9 ; Peripheral arterial disease I73.9 ; Lumbar radiculopathy, right M54.16 ; Acute diffuse otitis externa of both ears H60.313 ; Porphyria cutanea tarda E80.1 ; Hypertension I10 and Overweight E66.3 Ashish Huertas III, MD [address] [place] [address] [place] [address] 04/29/2024 Ashish Huertas Tobacco dependence F17.200 ; Insect bite without infection W57.XXXA ; Hypertension I10 ; COPD (chronic obstructive pulmonary disease) J44.9 ; BPH (benign prostatic hyperplasia) N40.0 ; Peripheral arterial disease I73.9 ; Acute diffuse otitis externa of both ears H60.313 and Overweight E66.3 Ashish Huertas III, MD [address] [place] [address] [place] [address] 05/23/2024 Ashish Huertas Tobacco dependence F17.200 ; BPH (benign prostatic hyperplasia) N40.0 ; Overweight E66.3 ; COPD (chronic obstructive pulmonary disease) J44.9 ; Hypertension I10 ; Peripheral arterial disease I73.9 ; Porphyria cutanea tarda E80.1 and Acute diffuse otitis externa of both ears H60.313 Ashish Huertas III, MD [address] [place] [address] [place] [address] 08/02/2024 Ashish Huertas Infection of pelvis M86.9 ; Peripheral arterial disease I73.9 ; COPD (chronic obstructive pulmonary disease) J44.9 ; Lumbar radiculopathy, right M54.16 ; BPH (benign prostatic hyperplasia) N40.0 and Hypertension I10 Ashish Huertas III, MD [address] [place] [address] [place] [address] 08/15/2024 Ashish Huertas Infection of pelvis M86.9 ; Hypertension I10 ; BPH (benign prostatic hyperplasia) N40.0 ; COPD (chronic obstructive pulmonary disease) J44.9 ; Peripheral arterial disease I73.9 and Lumbar radiculopathy, right M54.16 Ashish Huertas III, MD [address] [place] [address] [place] [address] 10/28/2024 Ashish Huertas Hypertension I10 ; C OPD (chronic obstructive pulmonary disease) J44.9 ; BPH (benign prostatic hyperplasia) N40.0 ; Peripheral arterial disease I73.9 ; Tobacco dependence F17.200 ; Porphyria cutanea tarda E80.1 ; Lumbar radiculopathy, right M54.16 and Overweight E66.3 Ashish Huertas III, MD [address] [place] [address] [place] [address] 11/15/2024 Ahsish Huertas Acute bronchitis due to other specified organisms J20.8 ; COPD (chronic obstructive pulmonary disease) J44.9 ; Tobacco dependence F17.200 ; Lumbar radiculopathy, right M54.16 ; Porphyria cutanea tarda E80.1 ; Hyperlipidemia E78.5 ; Hypertension I10 and Peripheral arterial disease I73.9 Ashish Huertas III, MD [address] [facility] [address] 12/14/2023 Ashish Huertas III, MD [address] [facility] [address] 02/09/2024 Ashish Huertas III, MD [address] [place] [address] [place] [address] 02/19/2024 Ashish Huertas III, MD [address] [place] [address] [place] [address] 02/24/2024 Ashish Huertas III, MD [address] [place] [address] [place] [address] 02/26/2024 Ashish Huertas III, MD [address] [place] [address] [place] [address] 02/26/2024 Ashish Huertas III, MD [address] [place] [address] [place] [address] 05/03/2024 Ashish Huertas Tobacco dependence F17.200 Ashish Huertas III, MD [address] [place] [address] [place] [address] 05/19/2024 Ashish Huertas III, MD [address] [place] [address] [place] [address] 07/01/2024 Ashish Huertas III, MD [address] [place] [address] [place] [address] 10/04/2024 Ashish Huertas Infection of pelvis M86.9 Ashish Huertas III, MD [address] [place] [address] [place] [address] 11/21/2024 Ashish Huertas III, MD [address] [place] [address] [place] [address] 11/21/2024 Ashish Huertas Assessments Encounter Date Diagnosis (ICD Code) Assessment Notes Treat ment Notes Treatment Clinical Notes 01/20/2024 Tobacco dependence (ICD-10 - F17.200) He [...] the left side. It is now resolved 10/28/2024 Hypertension (ICD-10 - I10) His blood pressure is 142/70. No change in his regimen was made. I encouraged him to pursue aggressive sodium restriction. He was given an appointment to come to the office and recheck his blood pressure. 10/28/2024 COPD (chronic obstructive pulmonary disease) (ICD-10 - [...] lung cancer, COPD, oxygen dependence, etc. 11/15/2024 Acute bronchitis due to other specified [...] include lung cancer, COPD, oxygen dependence, etc. 05/03/2024 Tobacco dependence (ICD-10 - F17.200) He [...] the left side. It is now resolved 01/20/2024 Hypertension (ICD-10 - I10) His blood [...] modifications he can make to reduce nocturia. 10/28/2024 BPH (benign prostatic hyperplasia) (ICD-10 - N40.0) He rises from sleep usually once a night occasionally twice. We have discussed lifestyle modifications he can make to reduce nocturia. 11/15/2024 Tobacco dependence (ICD-10 - F17.200) He continues to smoke a package of cigarettes every day. We discussed the health consequences of this. His COPD has been stable and inactive recently. I made him aware of the smoking cessation programs and the local hospitals and this community. 01/20/2024 Lumbar radiculopathy, right (ICD-10 - M54.16) [...] 10 pounds. He has been referred to [facility] spine and sports rehabilitation medicine [...] 10 pounds. He has been referred to [facility] in [facility] spine and sports rehabilitation [facility] for physical therapy injections imaging and [...] include lung cancer, COPD, oxygen dependence, etc. 10/28/2024 Peripheral arterial disease (ICD-10 - I73.9) His claudication is stable at 1 block. He recently saw the vascular surgeon. He recently underwent a revision of his left femoral-popliteal bypass graft. The wound is now healed. He experiences some claudication in his right leg and is able to walk one block without stopping to rest. 11/15/2024 Lumbar radiculopathy, right (ICD-10 - M54.16) He continues to have pain that comes from his lower lumbar spine and right paravertebral muscles that radiates into his right buttock. X-rays have shown degenerative disease. The pain is aggravated with walking more than 10 feet and lifting more than 10 pounds. He has been referred to [facility] in [facility] spine and [facility] rehabilitation [facility] for physical therapy injections imaging and evaluation for surgery. 01/20/2024 BPH (benign prostatic hyperplasia) (ICD-10 - [...] walk one block without stopping to rest. 10/28/2024 Tobacco dependence (ICD-10 - F17.200) He continues to smoke a package of cigarettes every day. We discussed the health consequences of this. His COPD has been stable and inactive recently. I made him aware of the smoking cessation programs and the local hospitals and this community. 11/15/2024 Porphyria cutanea tarda (ICD-10 - E80.1) The diagnosis of porphyria was made by a sheet metal insulator at [facility]. He affirms that if he goes into direct sunlight. He will experience blisters and skin lesions. He is well versed in how to prevent this and has medications for his skin. 01/20/2024 Porphyria cutanea tarda (ICD-10 - E80.1) The diagnosis of porphyria was made by a sheet metal insulator at [facility]. He affirms that if he [...] diagnosis of porphyria was made by a sheet metal insulator at [facility]. He affirms that if he [...] 10 pounds. He has been referred to [facility] spine and sports rehabilitation medicine for physical therapy injections imaging and evaluation for surgery. 10/28/2024 Porphyria cutanea tarda (ICD-10 - E80.1) The diagnosis of porphyria was made by a sheet metal insulator at [facility]. He affirms that if he goes into direct sunlight. He will experience blisters and skin lesions. He is well versed in how to prevent this and has medications for his skin. 11/15/2024 Hyperlipidemia (ICD-10 - E78.5) Comprehensive blood work with a fasting lipid profile has been ordered. 02/19/2024 Hypertension (ICD-10 - I10) His most [...] diagnosis of porphyria was made by a sheet metal insulator at [facility]. He affirms that if he goes into direct sunlight. He will experience blisters and skin lesions. He is well versed in how to prevent this and has medications for his skin. 10/28/2024 Lumbar radiculopathy, right (ICD-10 - M54.16) He continues to have pain that comes from his lower lumbar spine and right paravertebral muscles that radiates into his right buttock. X-rays have shown degenerative disease. The pain is aggravated with walking more than 10 feet and lifting more than 10 pounds. He has been referred to [facility] spine and sports rehabilitation medicine for physical therapy injections imaging and evaluation for surgery. 11/15/2024 Hypertension (ICD-10 - I10) His blood pressure has been 142/70. No change in his regimen was made. I encouraged him to pursue aggressive sodium restriction. He was given an appointment to come to the office and recheck his blood pressure. 02/19/2024 Overweight (ICD-10 - E66.3) He is [...] prescription for Bactrim was given to him. 10/28/2024 Overweight (ICD-10 - E66.3) He is very slightly overweight.His BMI is 25.1. We discussed his diet and nutrition we made a plan to lose weight at a rate of one half of a pound per week. 11/15/2024 Peripheral arterial disease (ICD-10 - I73.9) His claudication is stable at 1 block. He recently saw the vascular surgeon. He recently underwent a revision of his left femoral-popliteal bypass graft. The wound is now healed. He experiences some claudication in his right leg and is able to walk one block without stopping to rest. Plan Of Treatment Pending Test Test Name Order Date PROFILE, FASTING (COMPREHENSIVE METABOLI C) 09/23/2023 PROFILE, FASTING (COMPREHENSIVE METABOLI C) 10/28/2024 PROFILE, FASTING (COMPREHENSIVE METABOLI C) 01/15/2023 PROFILE, FASTING (COMPREHENSIVE METABOLI C) 09/15/2022 PROFILE, FASTING (COMPREHENSIVE METABOLI C) 05/23/2024 LIPID PANEL 01/15/2023 LIPID PANEL 09/15/2022 PSA, TOTAL 01/15/2023 PSA, TOTAL 09/15/2022 PSA, TOTAL 09/23/2023 PSA, TOTAL 10/28/2024 PSA, TOTAL 05/23/2024 CBC w DIFF 01/15/2023 CBC w DIFF 09/15/2022 CBC w DIFF 09/23/2023 XR LUMBAR SPINE 09/23/2023 VITAMIN D 25-OH TOTAL 09/15/2022 CBC WITH AUTO DIFF 05/23/2024 CBC WITH AUTO DIFF 10/28/2024 Lipid Panel 09/23/2023 Lipid Panel 10/28/2024 Lipid Panel 05/23/2024 XR thoracic spine 3V 11/27/2023 Routine Culture 02/09/2024 Next Appt Details Provider Name:Ashish Huertas, 01/23/2025 02:30:00 PM, [address] [place] [address] [address], [place], [address], Provider Name:Ashish Huertas, 10/31/2025 02:00:00 PM, [address] [place] [address] [address], [place], [address], Insurance Providers Payer Name Payer Address Payer Phone Subscriber Number Group Number Insured Name Patient Relationship to Insured Coverage Start Date Coverage End Date [facility] [address] [place], [place] [id number] Sid Landeros Self - patient is the insured [address] [place] [address] [phone] [id number] Sid Landeros Self - patient is the insured Medical (General) History Medical History History ICD Code COPD (chronic obstructive pulmonary dise ase) J44.9 Hypertension I10 Erectile dysfunction Peripheral vascular disease Environmental allergies History of repaired pilonidal cyst Excised lipoma, left triceps, age 8 Porphyria cutanea tarda, Dr. Brady, [facility] Tobacco dependence Covid19 infection 2021 Lumbar radiculopathy {'Porphyria': 'No current is sues', 'Infection on backside': 'Resolved with antibiotics'} The patient has a history of Porphyria but has not had any recent episodes. He also has hearing loss and is scheduled for a hearing test. He has been experiencing some issues with his legs, but after an ultrasound, his doctor reported that they were 'pumping terrific'. Surgical History Surgery Date(Month/Year) Femoral -popliteal arterial bypass [facility] 05/2022 Esophagogastricduodoscopy Excision of lipoma, left triceps, age 8 Repair of pilonidal cyst Fracture of 2 fingers Colonoscopy, [facility], Dr. Ramos Arterial Bipass 05/2022 No history Hospitalization History Reason Date(Month/Year) No history
--- OUTSIDE RECORDS SUMMARY | 2024-11-29 12:44 | XMS_ITS ---
Author Organization Ashish Huertas III, MD Address [address] [place] [address] [place] [address] Care Team Providers Care Drug Safety Data Management Specialist Name Role Phone Ashish Huertas Primary Care Provider [phone] Medications Medication SIG (Take, Route, Frequency, Duration) Notes Start Date End Date Status Amoxicillin-Pot Clavulanate 875-125 MG 1 tablet Orally every 12 hrs for 7 days 11/21/2024 11/28/2024 Active Social History Sex Assigned At : Social History Observation Description Sex Assigned At Male Encounters Encounter Location Date Provider Diagnosis Ashish Huertas III, MD [address] [place] [address] [place] [address] 11/21/2024 Ashish Huertas Plan Of Treatment Medication Medication Name Sig Start Date Stop Date Notes Amoxicillin-Pot Clavulanate 875-125 MG 1 tablet Orally every 12 hrs for 7 days 11/21/2024 11/28/2024 Next Appt Details Provider Name:Ashihs Huertas, 01/23/2025 02:30:00 PM, [address] [place] [address] [place], [address], Provider Name:Ashish Huertas, 10/31/2025 02:00:00 PM, [address] [place] [address] [place], [address], Progress Notes * Sid LANDEROS MDOB: 2 (64 yo M)Acc No.[id number]:11/21/2024 Patient:?Sid LANDEROS :1960???Age:64 Y???Sex:Male Address: [address], [place], [address] * Refills? Start Amoxicillin-Pot Clavulanate Tablet, 875-125 MG, Orally, 14 Tablet, 1 tablet, every 12 hrs, 7 days, Refills=0 * true * Date:? Generated for Vanessa rodriguez/Namita/Reyitting on:?11/29/2024 12:44 PM EST
--- OUTSIDE RECORDS SUMMARY | 2024-11-29 12:44 | XMS_ITS | Clinical Summary ---
Author Organization [facility] Address [address] [place] [address] Care Team Providers Care Physical Testing Supervisor Name Role Phone Goldie Watkins MD Primary [...] age to complete this topic Care Teams Physical Testing Supervisor Relationship Specialty Start Date End Date Goldie Watkins MD [address] [facility] , [address] [facility] D[facility]A: [facility] [place] Mel[place]rez [id number] PCP - General Internal Medicine 06/08/17
== END 2024-11-29 10:28 | disposition home or self-care (01) ==
LOC: HO.US 10:27
PROVIDERS: PCP Internal Medicine Medical Oncology; Visit Provider Internal Medicine
DX: R79.89 Other specified abnormal findings of blood chemistry (principal)
CPT/HCPCS: 76700

== ENCOUNTER → 2024-11-29 10:29 | Outpatient (BNV) | payer BC, OTHER, SELFPAY | PROVIDERS: PCP Internal Medicine Medical Oncology; Visit Provider Radiology Diagnostic Radiology | DX: R94.5 Abnormal results of liver function studies (principal); K82.4 Cholesterolosis of gallbladder | CPT/HCPCS: 76700; 76981 ==

== ENCOUNTER 2024-11-29 13:23 | Outpatient (AMB) | payer BC, OTHER, SELFPAY ==
[2024-11-29 13:30] VITALS: BP 130/74; PULSE 82; O2SAT 96; BMI 24.5
--- NOTE | 2024-11-29 13:30 | A.OFFVIS_ITS ---
Vital Signs 11/29/24 13:30 Height 5 ft 10 in Weight 170 lb 13.732 oz BMI 24.5 BP 130/74 Blood Pressure Location Lt brachial Position Sitting Pulse 82 Pulse Source Pulse Oximeter Pulse Oximetry (%) 96 Oxygen Delivery Method Room Air Intake Visit Reasons: Dyspnea Intake Note: pt is here for follow up and states he did have a bout of bronchitis. Lan/Wan Engineer Required: No Allergies doxycycline Allergy (Verified 11/29/24 13:40) Hives nabumetone Adverse Reaction (Unknown, Verified 11/29/24 13:40) green stools Medication List - Last Reconciled 11/29/24 by Natalie Lino MD amlodipine 10 mg PO DAILY 90 days aspirin (Adult Aspirin Regimen) 81 mg PO DAILY bisacodyl 20 mg (4 x 5 mg) PO ONCE 1 day budesonide-formoterol 160-4.5 mcg/actuation (Symbicort) 2 puffs inhalation BID 90 days clopidogrel 75 mg PO DAILY codeine-guaifenesin 10-100 mg/5 mL 10 mL PO Q4-6H PRN 1 week ibuprofen 800 mg PO Q8H PRN 90 days ipratropium-albuterol 20-100 mcg/actuation (Combivent Respimat) 1 puff inhalation Q6H PRN 90 days nicotine 10 mg inhalation 3XD 30 days nicotine 1 spray intranasal TID 30 days pantoprazole 40 mg PO DAILY polyethylene glycol 3350 (Miralax) 238 grams PO ONCE rosuvastatin 20 mg PO DAILY sildenafil 100 mg PO DAILY PRN Do you need a note to return to daycare/school/sports/work: No HPI HPI Dyspnea: Details: This 64 years old , comes for his routine follow-up today. He is being treated for moderately severe chronic obstructive pulmonary disease. He has had repeated acute exacerbations in the last few months. 2 months ago when I saw him in the office he was treated with a course of predni sone and Augmentin. He got better but a few weeks later he was treated again with a course of prednisone and antibiotic , prescribed to him by his primary care physician. He is doing relatively better but he is prone to have recurrent respiratory infection or chest congestion. He say is then the past whenever he was treated with antibiotics especially Z- Kofi he had to had 2 courses at a time. Currently smoking 3-5 cigarettes a day and is trying to quit. He has intermittent cough, he does get short of breath when goes up hill or climbs stairs. [facility] Medical History (Updated 11/29/24 @ 14:00 by Natalie Lino MD) Bronchitis Abnormal LFTs ETOH abuse Hereditary hemochromatosis Atherosclerotic cardiovascular disease Bilateral carotid artery stenosis PAD (peripheral artery disease) Murmur HTN (hypertension) Hyperlipidemia COPD (chronic obstructive pulmonary disease) SOB (shortness of breath) Allergic rhinitis Nicotine dependence, cigarettes, uncomplicated GERD (gastroesophageal reflux disease) Tubular adenoma of colon Porphyria cutanea tarda Arthritis Surgical History History of femoropopliteal bypass History of femoropopliteal bypass (11/02/23) S/P angiogram of extremity History of colonoscopy History of esophagogastroduodenoscopy History of lipoma History of skin graft History of removal of cyst History of foot surgery Family History Father Diabetes Stroke Hypertension Mother Chronic mental illness Family/Other FH: mental illness Social History Household Members: Spouse Housing: House Are you a primary childcare provider to a significant other at home: No Do you presently have visiting nurse or other home services: No 75 years or older and lives alone: No Alcohol intake: current Alcohol intake frequency: a few times a month Alcohol type: beer Comment: residual pain in left foot, but much improved and tolerable per patient. 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 occupational exposures/hazards: No Cognitive needs: No Hearing needs: No Vision needs: Yes Review of Systems Const All systems reviewed & are unremarkable except as noted in HPI and below Eyes Reports no additional complaints ENT Reports no additional complaints Card Denies chest pain, Denies irregular heart rhythm and Denies leg edema Resp Reports as per HPI GI Reports no additional complaints Reports erectile dysfunction Musc Reports no additional complaints Skin/Breast Reports system reviewed and no additional complaints, except as documented Neuro Reports no additional complaints Psych Reports no additional complaints Endo Reports no additional complaints Terrell/Lymph Reports other (h/o polycythemia ) Physical Exam Vital Signs: Last Vital Signs Pulse 82 11/29/24 13:30 BP 130/74 11/29/24 13:30 Pulse Ox 96 11/29/24 13:30 Oxygen Delivery Method Room Air 11/29/24 13:30 BMI result Body Mass Index 24.5 Const General: comfortable, no acute distress, alert and awake Orientation/consciousness: patient oriented x3 HEENT Head: Yes normal to inspection General nose exam: No nasal polyps present, No nasal discharge present and Other nasal findings present (MODERATE AMOUNT OF NASAL CONGESTION ESPECIALLY IN LEFT NARE ) Face and sinus: Yes sinuses nontender Mouth: oropharynx normal Throat: Yes posterior oropharynx normal Eyes General: appearance normal, both eyes and all related structures Neck Neck: Yes normal visual inspection, Yes no lymphadenopathy, Yes trachea midline and Yes no JVD Thyroid: Thyroid normal Chest Chest palpation & inspection: normal inspection of the chest, normal palpation of entire chest wall and no tenderness Resp Other: Percussion note resonant, breath sounds are distant with prolonged expiratory phase. He has inspiratory and expiratory wheezes scattered on both sides. Cardio Palpation: normal PMI Rate: regular rate Rhythm: regular rhythm Heart sounds: no gallops and no murmurs GI Palpation (GI): Soft to palpation, nontender, No hepatosplenomegaly present and no masses Auscultation: normal bowel sounds Back/Spine/Pelvis Thoracic/Lumbar Spine: thoracic and lumbar spine normal to inspection Skin General skin exam: no rashes or lesions noted Neuro General: patient oriented x3 and no focal motor deficits Cranial nerves: Yes CN's II-XII intact bilaterally Extrem General: Yes normal to inspection, Yes no clubbing, cyanosis or edema and Yes no calf tenderness Psych Appearance: grossly normal and well kempt Speech and movement: Normal speech and movement present Assessment & Plan Assessment & Plan (1) COPD (chronic obstructive pulmonary disease): Comment: COPD is moderately severe, secondary to smoking, Is relatively stable at this time, but he becomes symptomatic when doing any heavy physical work. He is prone to have recurrent acute exacerbation probably due to nonspecific tracheobronchitis. Code(s): J44.9 - Chronic obstructive pulmonary disease, unspecified Category: Medical Qualifiers: COPD type: chronic bronchitis Chronic bronchitis type: simple Qualified Code(s): J41.0 - Simple chronic bronchitis Plan: Continue present regimen including Budesonide-formoterol 160-4.52 puffs b.i.d. Combivent Respimat 1 inhalation Q 4-6 hours p.r.n. (2) Nicotine dependence, cigarettes, uncomplicated: Comment: (current smoker, onset 17yo, 1ppd x 46yrs, had cut it down to few cigarettes a day but now in the past few months has gone back to 1 pack a day, He is trying to cut down the number of cigarettes and claims that he is down to 3-5 cigarettes a day. He and his both are trying to quit smoking Code(s): F17.210 - Nicotine dependence, cigarettes, uncomplicated Category: Medical Plan: Encouraged to quit smoking completely. He is using nicotine spray 3 times a day which is fine. (3) Allergic rhinitis: Comment: (Allergic Rhinitis on top of COPD - gets increased nasal congestion when outdoors) Code(s): J30.9 - Allergic rhinitis, unspecified Category: Medical Plan: OK to use Flonase-50 1 spray in each nostril daily. (4) Bronchitis: Comment: Did have acute bronchitis causing cough and congested feeling. Which got better after a course of prednisone and Augmentin for 7 days. But then he came with another acute exacerbation and was treated with a course of prednisone and Augmentin. It seems that he is prone to have very frequent bouts of the upper respiratory infection or inflammation. Code(s): J40 - Bronchitis, not specified as acute or chronic Category: Medical Plan: Will try to put him on azithromycin 250 mg 3 times a week ( Thursday ) And by doing this may be able to cut down the frequency of his acute respiratory infection. Medications: New azithromycin 250 mg PO DAILY 10 days 10 tabs 0RF azithromycin one tab. pO on Thursday,Thursday and Fridays 250 mg PO 3XW 13 tabs 3RF copd/bronchitis 30 days Coding Level of Care Code Est Pt Level 3 (72166) Diagnoses Simple chronic bronchitis J41.0 COPD type: chronic bronchitis Chronic bronchitis type: simple Nicotine dependence, cigarettes, uncomplicated F17.210 Allergic rhinitis J30.9 Bronchitis J40
--- OUTSIDE RECORDS SUMMARY | 2024-11-29 16:47 | XMS_ITS | Clinical Summary ---
Author Organization [facility] Address [address] [place] [address] Care Team Providers Care Director Of Teenage Activities Name Role Phone Goldie Watkins MD Primary [...] to complete this topic Care Teams Director Of Teenage Activities Relationship Specialty Start Date End Date Goldie Watkins MD 2 [facility] , [address] [facility] D/B/A: [facility] [place] [id number] PCP - General Internal Medicine 06/08/17
== END 2024-11-29 13:51 | disposition home or self-care (01) ==
PROVIDERS: PCP Internal Medicine Medical Oncology; Visit Provider Internal Medicine
DX: J41.0 Simple chronic bronchitis (principal); F17.210 Nicotine dependence, cigarettes, uncomplicated; J30.9 Allergic rhinitis, unspecified; J40 Bronchitis, not specified as acute or chronic
CPT/HCPCS: 99213

== ENCOUNTER 2024-12-12 13:10 | Outpatient (AMB) | payer BC, OTHER, SELFPAY ==
--- NOTE | 2024-12-12 13:12 | MHC.OFFVIS ---
Intake Visit Reasons: Cholesterolosis of GB Intake Note: Patient referred by Dr. Diaz for Cholestherolosis of gallbladder. Patiet c/o: deies pain, nausea, diarrhea. Abd US: 11-29-2024 Machine Silver Stripper Required: No Accompanied by: Self / Same As Patient Allergies doxycycline Allergy (Verified 12/12/24 13:14) Hives nabumetone Adverse Reaction (Unknown, Verified 12/12/24 13:14) green stools Medication List - Last Reconciled 12/12/24 by Victor Manuel Calderón MD amlodipine 10 mg PO DAILY 90 days aspirin (Adult Aspirin Regimen) 81 mg PO DAILY azithromycin 250 mg PO 3XW 30 days bisacodyl 20 mg (4 x 5 mg) PO ONCE 1 day budesonide-formoterol 160-4.5 mcg/actuation (Symbicort) 2 puffs inhalation BID 90 days clopidogrel 75 mg PO DAILY codeine-guaifenesin 10-100 mg/5 mL 10 mL PO Q4-6H PRN 1 week ibuprofen 800 mg PO Q8H PRN 90 days ipratropium-albuterol 20-100 mcg/actuation (Combivent Respimat) 1 puff inhalation Q6H PRN 90 days nicotine 10 mg inhalation 3XD 30 days nicotine 1 spray intranasal TID 30 days pantoprazole 40 mg PO DAILY polyethylene glycol 3350 (Miralax) 238 grams PO ONCE rosuvastatin 20 mg PO DAILY sildenafil 100 mg PO DAILY PRN HPI Comments Details: Patient presents for evaluation of incidentally found gallbladder polyp on sonogram of abdomen. This measures 1 cm in size. Patient was self has no other GI issues or complaints. He tied diet. He has regular bowel habits. Never been jaundiced before. Chart was reviewed and patient evaluated. Patient was a collection of comorbidities. He is on Plavix and aspirin. No prior abdominal surgeries [facility] Medical History (Updated 11/29/24 @ 14:00 by Natalie Lino MD) Bronchitis Abnormal LFTs ETOH abuse Hereditary hemochromatosis Atherosclerotic cardiovascular disease Bilateral carotid artery stenosis PAD (peripheral artery disease) Murmur HTN (hypertension) Hyperlipidemia COPD (chronic obstructive pulmonary disease) SOB (shortness of breath) Allergic rhinitis Nicotine dependence, cigarettes, uncomplicated GERD (gastroesophageal reflux disease) Tubular adenoma of colon Porphyria cutanea tarda Arthritis Surgical History (Updated 03/17/25 @ 13:31 by Victor Manuel Calderón MD) History of femoropopliteal bypass History of femoropopliteal bypass (11/02/23) S/P angiogram of extremity History of colonoscopy History of esophagogastroduodenoscopy History of lipoma History of skin graft History of removal of cyst History of foot surgery Family History Father Diabetes Stroke Hypertension Mother Chronic mental illness Family/Other FH: mental illness Social History Household Members: Spouse Housing: House Are you a primary laboratory animal care veterinarian to a significant other at home: No Do you presently have visiting nurse or other home services: No 75 years or older and lives alone: No Alcohol intake: current Alcohol intake frequency: a few times a month Alcohol type: beer Comment: residual pain in left foot, but much improved and tolerable per patient. 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 No obvious hernias. Assessment & Plan Assessment & Plan (1) Gallbladder polyp: Code(s): K82.4 - Cholesterolosis of gallbladder Category: Surgical Plan: Patient was sent in I discussed therapeutic options. His gallbladder polyp is measured at 1 cm. This is right at the borderline of conservative therapy versus cholecystectomy. Options were six-month surveillance with follow-up ultrasound or laparoscopic cholecystectomy. Patient wishes to undergo six-month surveillance. Arrangements were made for this. He will see me after the study or p.r.n.. All questions answered Orders: Orders US abdomen limited 6 Months K82.4 - Cholesterolosis of gallbladder Coding Level of Care Code New Pt Level 4 (42829) Diagnoses Gallbladder polyp K82.4
--- OUTSIDE RECORDS SUMMARY | 2024-12-12 15:20 | XMS_ITS | Clinical Summary ---
Author Organization [facility] Address [address] [place] [address] Care Team Providers Care Rn Physician Office Name Role Phone Goldie Watkins MD Primary [...] age to complete this topic Care Teams Rn Physician Office Relationship Specialty Start Date End Date Goldie Watkins MD [address] [facility] , [address] [facility] D/B/A: [facility] [place] [id number] PCP - General Internal Medicine 06/08/17
--- OUTSIDE RECORDS SUMMARY | 2024-12-12 15:20 | XMS_ITS ---
Author Organization Ashish Huertas III, MD Address [address] [facility] [place] [address] Care Team Providers Care Newspaper Writer Name Role Phone Ashish Huertas Primary Care Provider Allergies Allergen (clinical drug ingredient) Drug/Non Drug Allergy documented on EMR Reaction Allergy Type Onset Date Status doxycycline Doxycycline Unknown Drug Allergy Act henrry REASON FOR VISIT bronchitis, Cough, COPD, Tobacco dependence, Porphyria Medications Medication SIG (Take, Route, Frequency, Duration) Notes Start Date End Date Status Mupirocin 2 % 1 application Statistical Typist ally Twice a day 11/20/2023 Active Clopidogrel [...] Status W/U Status Risk Notes Problem Hyperlipidemia (34411832) Hyperlipidemia (E78.5) Active confirmed Comprehensive blood work with a fasting lipid profile has been ordered. Problem [id number] Acute bronchitis due to other specified organisms (J20.8) Active confirmed He is producing green phlegm and says he is wheezing. The inhaler is helping. He was given a Zithromax and prednisone with a follow-up visit. Encounters Encounter Location Date Provider Diagnosis Ashish Huertas III, MD [address] [place] [address] [place] [address] 11/15/2024 Ashish Huertas Acute bronchitis due to [...] 10 pounds. He has been referred to [facility] medicine for physical therapy injections imaging and evaluation for surgery. 11/15/2024 Porphyria cutanea tarda (ICD-10 - E80.1) The diagnosis of porphyria was made by a aircraft technician at [facility]. He affirms that if he [...] Date Notes Mupirocin 2 % 1 application Statistical Typist ally Twice a day 11/20/2023 Clopidogrel Bisulfate [...] condition Provider Name:Ashish Huertas, 01/23/2025 02:30:00 PM, [address] [place] [address] [address], [place], [address], Provider Name:Ashish Huertas, 10/31/2025 02:00:00 PM, [address] [place] [address] [address], [place], [address], Progress Notes * Sid LANDEROS MDOB: 2 (64 yo M)Acc No.[id number]:11/15/2024 Patient:?Sid LANDEROS Provider:?Ashish Huertas MD :1960???Age:63 Y???Sex:Male Danny e:11/15/2024 Address:[address] [place], [place] [address], [id number] Subjective: * Chief Complaints: * ???BronchitisCoughCOPDTobacc o dependencePorphyria * HPI: ???:?Telehealth?Location of provider rendering services:?{...} [address] [place] [address] ?Location of patient:?address listed in demographics for [...] * Surgical History:?Femoral -p opliteal arterial bypass @[facility] [place] 05/2022Esophagogastricduodoscopy Excision of lipoma, left triceps, age 8 Repair of pilonidal cyst Fracture of 2 fingers Colonoscopy, [facility], Dr. Ramos Arterial Bipass 05/2022No history [...] 10 pounds. He has been referred to [facility] medicine for physical therapy injections imaging and evaluation for surgery.???5.?Porphyria cutanea tarda - E80.1???Notes :The diagnosis of porphyria was made by a aircraft technician at [facility]. He affirms that if he [...] Huertas MD Date:?10/29 Generated for Vanessa rodriguez/Namita/Lesly on:?12/12/2024 03:20 PM EDT History and Physical Notes * HPI (History of Present Illness) Category Sub-Category Detail Notes Telehealth [facility] {...} [address] [place] [address] Location of patient:: address listed in demographics [...]
--- OUTSIDE RECORDS SUMMARY | 2024-12-12 15:20 | XMS_ITS ---
Author Organization Ashish Huertas III, MD Address [address] [place] [address] [place] [address] Care Team Providers Care Land Use Planner Name Role Phone Ashish Huertas Primary Care Provider [phone] Medications Medication SIG (Take, Route, Frequency, Duration) Notes Start Date End Date Status Amoxicillin-Pot Clavulanate 875-125 MG 1 tablet Orally every 12 hrs for 7 days 11/21/2024 11/28/2024 Active Social History Sex Assigned At : Social History Observation Description Sex Assigned At Male Encounters Encounter Location Date Provider Diagnosis Ashish Huertas III, MD [address] [place] [address] [place] [address] 11/21/2024 Ashish Huertas Plan Of Treatment Medication Medication Name Sig Start Date Stop Date Notes Amoxicillin-Pot Clavulanate 875-125 MG 1 tablet Orally every 12 hrs for 7 days 11/21/2024 11/28/2024 Next Appt Details Provider Name:Ashish Huertas, 01/23/2025 02:30:00 PM, [address] [place] [address] [place], [address], Provider Name:Ashish Huertas, 10/31/2025 02:00:00 PM, [address] [place] [address] [place], [address], Progress Notes * Sid LANDEROS MDOB: 2 (64 yo M)Acc No.[id number]:11/21/2024 Patient:?Sid LANDEROS :1960???Age:64 Y???Sex:Male Address: [address], [place], [address] * Refills? Start Amoxicillin-Pot Clavulanate Tablet, 875-125 MG, Orally, 14 Tablet, 1 tablet, every 12 hrs, 7 days, Refills=0 * true * Date:? Generated for Vanessa rodriguez/Namita/Reyitting on:?12/12/2024 03:20 PM EDT
--- OUTSIDE RECORDS SUMMARY | 2024-12-12 15:20 | XMS_ITS | Patient Health Record ---
Author Organization Ashish Huertas III, MD Address [address] [place] [address] Care Team Providers Care Box Hinge And Lock Attacher Name Role Phone Ashish Huertas Primary Care [...] 0.2 - 1.3 BLD Neg Negative - US KAI complete Reviewed date:02/20/2024 04:43:15 AM Interpretation: Performing Lab: Notes/Report: [address] [address] Ultrasound Report Signed Patient: Sid Landeros MR#: [id number] : 1960 Acct:[id number] Age/Sex: 63 / M ADM Date: 02/15/24 Loc: HO.US Attending Dr: Jhony Orr MD Ordering Physician: Jhony Orr MD Date of Service: 02/15/24 Procedure(s): US KAI complete Accession Number(s): [id number] cc: Ashish Huertas MD; Jhony Orr MD [...] in OV> 02/17/24 1435 DD/ 0928 TD/TT: Chip Machine Operator: [place] [address] Ultrasound Report Signed Patient: Marlo Landeros MR#: [id number] : 1960 Acct:[id number] Age/Sex: 63 / M ADM Date: 02/15/24 Loc: . Attending Dr: Jhony Orr MD Ordering Physician: Jhony Orr MD Date of Service: 02/15/24 Procedure(s): US KAI complete Accession Number(s): [id number] cc: Ashish Huertas MD; Jhony Orr MD [...] in OV> 02/17/24 1435 DD/ 0928 TD/TT: Chip Machine Operator: US arterial duplex LE BI Reviewed date:02/20/2024 04:43:15 AM Interpretation: Performing Lab: Notes/Report: [address] [address] Ultrasound Report Signed Patient: Sid Landeros MR#: [id number] : 1960 Acct:[id number] Age/Sex: 63 / M ADM Date: 02/15/24 Loc: HO.US Attending Dr: Jhony Orr MD Ordering Physician: Jhony Orr MD Date of Service: 02/15/24 Procedure(s): US arterial duplex LE BI Accession Number(s): [id number] cc: Ashish Huertas MD; Jhony Orr MD [...] by Stanislav Roblero MD in OV> 02/17/24 3529 DD/ 0915 TD/TT: Chip Machine Operator: [address] [address] Ultrasound Report Signed Patient: Marlo Landeros MR#: [id number] : 1960 Acct:[id number] Age/Sex: 63 / M ADM Date: 02/15/24 Loc: HO.US Attending Dr: Jhony Orr MD Ordering Physician: Jhony Orr MD Date of Service: 02/15/24 Procedure(s): US arterial duplex LE BI Accession Number(s): [id number] cc: Ashish Huertas MD; Jhony Orr MD [...] in OV> 02/17/24 1435 DD/ 0915 TD/TT: Chip Machine Operator: Complete Blood Count Auto Di ff Reviewed date:05/15/2024 08:55:39 AM Interpretation: Performing Lab:[facility], [address] [place] [address] Notes/Report: White Blood Count 6.6 4.8-10.8 X10*3/uL [...] Panel Reviewed date:05/15/2024 08:55:39 AM Interpretation: Performing Lab:[facility], [address] [place] [address] Notes/Report: Sodium 132 135-145 mmol/L Potassium 3.8 [...] Glomerular Filt Rate > 60 NOTE: For -Russian individuals, multiply the result by 1.210. Chronic [...] Phosphatase 119 39-117 U/L COVID-19 ID NOW ([employer]) Reviewed date:05/15/2024 08:55:39 AM Interpretation: Performing Lab:[facility], [address] [place] [address] Notes/Report: IDNOW Serial# [id number] COVID-19 Test Negative Negative COVID-19 Note See [...] with other viruses. Testing facilities within the [facility] and its territories are required to [...] by authorized laboratories. Testing performed on the [employer] ID NOW utilizing NAAT. Influenza A B2 ID NOW (Abbot [employer]) Reviewed date:05/15/2024 08:55:39 AM Interpretation: Performing Lab:[facility], [address] [place] [phone] Notes/Report: [facility] Serial# [id number] Influenza A Negative Negative Influenza B2 Negative [...] date:05/15/2024 08:55:39 AM Interpretation: Performing Lab: Notes/Report: [address] [address] XRay Report Signed Patient: Sid Landeros MR#: [id number] : 1960 Acct:[id number] Age/Sex: 63 / M ADM Date: 02/28/24 Loc: .ED Attending Dr: Ordering Physician: Generic ED Physician Date of Service: 02/28/24 Procedure(s): XR chest 2V Accession Number(s): [id number] cc: Ashish Huertas MD; Generic ED Physician [...] MD in OV> 02/28/[address] DD/ 5 TD/TT: Chip Machine Operator: MAURA [address] [address] XRay Report Signed Patient: Marlo Landeros MR#: [id number] : 1960 Acct:[id number] Age/Sex: 63 / M ADM Date: 02/28/24 Loc: HO.ED Attending Dr: Ordering Physician: Generic ED Physician Date of Service: 02/28/24 Procedure(s): XR [address] st 2V Accession Number(s): [id number] cc: Ashish Huertas MD; Generic ED Physician [...] MD in OV> 02/28/248[address] DD/ 5 TD/TT: Chip Machine Operator: MAURA Liver Panel Reviewed date:06/27/2024 06:04:41 AM Interpretation: Performing Lab:[address] [address] Notes/Report: Bilirubin Total 0.6 0.0-1.0 mg/dL Bilirubin Direct 0.3 0.0-0.5 mg/dL Aspartate Amino Transferase 40 5-37 U/L Alanine Aminotransferase 31 0-40 U/L Total Protein 7.8 6.5-8.0 g/dL Albumin Level 4.4 3.5-5.0 g/dL Alkaline Phosphatase 110 39-117 U/L Lipid Panel Reviewed date:06/27/2024 06:04:41 AM Interpretation: Performing Lab:[address] [address] Notes/Report: Triglycerides 39 <150 mg/dL Desirable Triglyceride: [...] date:09/24/2024 07:13:25 AM Interpretation: Performing Lab: Notes/Report: [address] [address] Ultrasound Report Signed Patient: Sid Landeros MR#: [id number] : 1960 Acct:[id number] Age/Sex: 63 / M ADM Date: 08/22/24 Loc: .US Attending Dr: Jhony Orr MD Ordering Physician: Jhony Orr MD Date of Service: 08/22/24 Procedure(s): US arterial duplex BI w/ KAI Accession Number(s): [id number] cc: Ashish Huertas MD; Jhony Orr MD [...] by: Sultana Beaver MD 09/23/2024 06:31 PM [facility] Dictated By: Twyla Beaver Signed By: <Electronically signed by Twyla Beaver in OV> 09/23/24 1831 DD/ 1133 TD/TT: 08/22/24 1210 Chip Machine Operator: [place] [address] Ultrasound Report Signed Patient: Marlo Landeros MR#: [id number] : 1960 Acct:[id number] Age/Sex: 63 / M ADM Date: 08/22/24 Loc: .US Attending Dr: Jhony Orr MD Ordering Physician: Jhony Orr MD Date of Service: 08/22/24 Procedure(s): US arterial duplex BI w/ KAI Accession Number(s): [id number] cc: Ashish Huertas MD; Jhony Orr MD [...] by: Sultana Beaver MD 09/23/2024 06:31 PM [facility] Dictated By: Twyla Beaver Signed By: <Electronically signed by Twyla Beaver in OV> 09/23/24 1831 DD/ 1133 TD/TT: 08/22/24 1210 Chip Machine Operator: US abdomen complete (Not yet reviewed by provider) Interpretation: Performing Lab: Notes/Report: [address] [address] Ultrasound Report Signed Patient: Sid Landeros MR#: [id number] : 1960 Acct:[id number] Age/Sex: 64 / M ADM Date: 11/29/24 Loc: HO.US Attending Dr: Wen Diaz MD Ordering Physician: Wen Diaz MD Date of Service: 11/29/24 Procedure(s): US abdomen complete Accession Number(s): [id number] cc: Ashish Huertas MD; Wen Diaz MD EXAMINATION: US ABDOMEN COMPLETE CLINICAL INFORMATION: Abnormal LFTs.. COMPARISON: None available. TECHNIQUE: Real-time imaging of the abdominal viscera. FINDINGS: PANCREAS: Visualized portions are unremarkable. ABDOMINAL AORTA: The proximal, mid, and distal segments are normal in caliber. INFERIOR VENA CAVA: Visualized portions are normal. LIVER: The liver is normal in size. The liver contour is normal. Parenchymal echogenicity is normal. No focal hepatic lesion. There is no intrahepatic biliary duct dilatation seen. GALLBLADDER: There is nonmobile bilateral multiple echogenic nonshadowing lesions along the inner gallbladder wall suggestive polyps. The largest measuring 1.0 x 0.6 x 0.7 cm. No echogenic stone or wall thickening. The wall thickness is 0.2 cm. COMMON BILE DUCT: Normal in caliber measuring 0.2 cm in diameter. RIGHT KIDNEY: No hydronephrosis. No renal calculi or focal parenchymal lesions. The kidney measures 12.2 cm in maximum dimension. There is small parenchymal junctional defect in the midpole lateral cortex. LEFT KIDNEY: No hydronephrosis. No renal calculi or focal parenchymal lesions. The kidney measures 11.9 cm in maximum dimension. SPLEEN: The spleen measures 8.8 cm in maximum dimension. FREE FLUID: None. US/US abdomen complete IMPRESSION: Gallbladder polyps. No echogenic gallstones are wall thickening. Electronically signed by: Naman Roth MD 11/30/2024 07:39 AM [facility] Dictated By: Naman Roth MD Signed By: <Electronically signed by Naman Roth MD in OV> 11/30/24 0739 DD/ 1033 TD/TT: 11/29/24 1054 Chip Machine Operator: [address] [address] Ultrasound Report Signed Patient: Marlo Landeros MR#: [id number] : 1960 Acct:[id number] Age/Sex: 64 / M ADM Date: 11/29/24 Loc: HO.US Attending Dr: Wen Diaz MD Ordering Physician: Wen Diaz MD Date of Service: 11/29/24 Procedure(s): US abdomen complete Accession Number(s): [id number] cc: Ashish Huertas MD; Wen Diaz MD EXAMINATION: US ABDOMEN COMPLETE CLINICAL INFORMATION: Abnormal LFTs.. COMPARISON: None available. TECHNIQUE: Real-time imaging of the abdominal viscera. FINDINGS: PANCREAS: Visualized portions are unremarkable. ABDOMINAL AORTA: The proximal, mid, and distal segments are normal in caliber. INFERIOR VENA CAVA: Visualized portions are normal. LIVER: The liver is normal in size. The liver contour is normal. Parenchymal echogenicity is normal. No focal hepatic lesion. There is no intrahepatic bili federico duct dilatation seen. GALLBLADDER: There i s nonmobile bilateral multiple echogenic nonshadowing lesions along the inner gallbladder wall suggestive polyps. The largest measuring 1.0 x 0.6 x 0.7 cm. No echogenic stone or wall thickening. The wall thickness is 0.2 cm. COMMON BILE DUCT: Normal in caliber measuring 0.2 cm in diameter. RIGHT KIDNEY: No hydronephrosis. No renal calculi or focal parenchymal lesions. The kidney measures 12.2 cm in maximum dimension. There is small parenchymal junctional defect in the midpole lateral cortex. LEFT KIDNEY: No hydronephrosis. No renal calculi or focal parenchymal lesions. The kidney measures 11.9 cm in maximum dimension. SPLEEN: The spleen measures 8.8 cm in maximum dimension. FREE FLUID: None. US/US abdomen complete IMPRESSION: Gallbladder polyps. No echogenic gallstones are wall thickening. Electronically julio c d by: Naman Roth MD 11/30/2024 07:39 AM EST Dictated By: Naman Roth MD Signed By: <Electronically signed by Naman Roth MD in OV> 11/30/24 0739 DD/ 1033 TD/TT: 11/29/24 1054 Chip Machine Operator: [facility] Reason For Referral No Information Medications Medication SIG (Take, Route, Frequency, Duration) Notes Start Date End Date Status Rosuvastatin Calcium 20 MG 1 tablet Oral ly Once a day Active Varenicline Tartrate (Starter) 0.5 MG X 11 & 1 MG X 42 as directed Orally as directed 01/30/2023 Active Mupirocin 2 % 1 application Respiratory Care Specialist ally Twice a day 11/20/2023 Active Pantoprazole Sodium 40 MG one tablet miguel angel ly Orally Once a day Active Clopidogrel Bisulfate 75 MG 1 tablet Ora lly Once a day 08/02/2024 Active Pantoprazole Sodium [...] the days for 5 days 11/15/2024 Active Combivent Respimat 20-100 MCG/ACT 1 puff [...] Status W/U Status Risk Notes Problem Hyperlipidemia (91649551) Hyperlipidemia (E78.5) Active confirmed Comprehensive blood work with a fasting lipid profile has been ordered. Problem 205482806 Overweight (E66.3) Active confirmed He is very slightly overweight.His BMI is 25.1. We discussed his diet and nutrition we made a plan to lose weight at a rate of one half of a pound per week. Problem Hypertension (27006135) Hypertension (I10) Active confirmed His blood pressure has been 142/70. No change in his regimen was made. I encouraged him to pursue aggressive sodium restriction. He was given an appointment to come to the office and recheck his blood pressure. Problem 10570871 Porphyria cutanea tarda (E80.1) Active confirmed The diagnosis of porphyria was made by a screw remover at [facility]. He affirms that if he goes into direct sunlight. He will experience blisters and skin lesions. He is well versed in how to prevent this and has medications for his skin. Problem 413561583 Acute bronchitis due to other specified organisms (J20.8) Active confirmed He is producing green phlegm and says he is wheezing. The inhaler is helping. He was given a Zithromax and prednisone with a follow-up visit. Problem Benign prostatic hyperplasia (538190138) BPH (benign prostatic hyperplasia) (N40.0) Active confirmed He rises from sleep usually once a night occasionally twice. We have discussed lifestyle modifications he can make to reduce nocturia. Problem 16686041 Tobacco dependence (F17.200) Active confirmed He continues to smoke a package of cigarettes every day. We discussed the health consequences of this. His COPD has been stable and inactive recently. I made him aware of the smoking cessation programs and the local hospitals and this community. Problem COPD - Chronic obstructive pulmonary disease (01754100) COPD (chronic obstructive pulmonary disease) (J44.9) Active [...] lung cancer, COPD, oxygen dependence, etc. Problem 55606448 Pilonidal cyst (L05.91) Active confirmed He had an excision and repair of this cyst years ago. It is healed and no longer bothers him. Problem 105609168 Peripheral arterial disease (I73.9) Active confirmed His claudication is stable at 1 block. He recently saw the vascular surgeon. He recently underwent a revision of his left femoral-poplite al bypass graft. The wound is now healed. He experiences some claudication in his right leg and is able to walk one block without stopping to rest. Problem 349876764 Lumbar radiculopathy, right (M54.16) Active confirmed He continues to have pain that comes from his lower lumbar spine and right paravertebral muscles that radiates into his right buttock. X-rays have shown degenerative disease. The pain is aggravated with walking more than 10 feet and lifting more than 10 pounds. [facility] has been [facility] spine and sports rehabilitation medicine for physical therapy injections imaging and evaluation for surgery. Problem 78806388 Acute diffuse otitis externa of both ears [...] Date Provider Diagnosis Ashish Huertas III, MD [address] [place] [address] [place] [address] 01/20/2024 Ashish Huertas Tobacco dependence F17.200 ; Peripheral arterial disease I73.9 ; Hypertension I10 ; Lumbar radiculopathy, right M54.16 ; BPH (benign prostatic hyperplasia) N40.0 and Porphyria cutanea tarda E80.1 Ashish Huertas III, MD [address] [place] [address] [place] [address] 02/09/2024 Ashish Huertas Tobacco dependence F17.200 ; Otitis of both ears H66.93 ; Peripheral arterial disease I73.9 ; BPH (benign prostatic hyperplasia) N40.0 ; Hypertension I10 and COPD (chronic obstructive pulmonary disease) J44.9 Ashish Huertas III, MD [address] [place] [address] [place] [address] 02/19/2024 Ashish Huertas Tobacco dependence F17.200 ; COPD (chronic obstructive pulmonary disease) J44.9 ; Peripheral arterial disease I73.9 ; Lumbar radiculopathy, right M54.16 ; Acute diffuse otitis externa of both ears H60.313 ; Porphyria cutanea tarda E80.1 ; Hypertension I10 and Overweight E66.3 Ashish Huertas III, MD [address] [place] [address] [place] [address] 04/29/2024 Ashish Huertas Tobacco dependence F17.200 ; Insect bite without infection W57.XXXA ; Hypertension I10 ; COPD (chronic obstructive pulmonary disease) J44.9 ; BPH (benign prostatic hyperplasia) N40.0 ; Peripheral arterial disease I73.9 ; Acute diffuse otitis externa of both ears H60.313 and Overweight E66.3 Ashish Huertas III, MD [address] [place] [address] [place] [address] 05/23/2024 Ashish Huertas Tobacco dependence F17.200 ; BPH (benign prostatic hyperplasia) N40.0 ; Overweight E66.3 ; COPD (chronic obstructive pulmonary disease) J44.9 ; Hypertension I10 ; Peripheral arterial disease I73.9 ; Porphyria cutanea tarda E80.1 and Acute diffuse otitis externa of both ears H60.313 Ashish Huertas III, MD [address] [place] [address] [place] [address] 08/02/2024 Ashish Huertas Infection of pelvis M86.9 ; Peripheral arterial disease I73.9 ; COPD (chronic obstructive pulmonary disease) J44.9 ; Lumbar radiculopathy, right M54.16 ; BPH (benign prostatic hyperplasia) N40.0 and Hypertension I10 Ashish Huertas III, MD [address] [place] [address] [place] [address] 08/15/2024 Ashish Huertas Infection of pelvis M86.9 ; Hypertension I10 ; BPH (benign prostatic hyperplasia) N40.0 ; COPD (chronic obstructive pulmonary disease) J44.9 ; Peripheral arterial disease I73.9 and Lumbar radiculopathy, right M54.16 Ashish Huertas III, MD [address] [place] [address] [place] [address] 10/28/2024 Ashish Huertas Hypertension I10 ; C OPD (chronic obstructive pulmonary disease) J44.9 ; BPH (benign prostatic hyperplasia) N40.0 ; Peripheral arterial disease I73.9 ; Tobacco dependence F17.200 ; Porphyria cutanea tarda E80.1 ; Lumbar radiculopathy, right M54.16 and Overweight E66.3 Ashish Huertas III, MD [address] [place] [address] [place] [address] 11/15/2024 Ashish Huertas Acute bronchitis due to other specified organisms J20.8 ; COPD (chronic obstructive pulmonary disease) J44.9 ; Tobacco dependence F17.200 ; Lumbar radiculopathy, right M54.16 ; Porphyria cutanea tarda E80.1 ; Hyperlipidemia E78.5 ; Hypertension I10 and Peripheral arterial disease I73.9 Ashish Huertas III, MD [address] [place] [address] [place] [address] 12/14/2023 Ashish Huertas III, MD [address] [place] [address] [place] [address] 02/09/2024 Ashish Huertas III, MD [address] [place] [address] [place] [address] 02/19/2024 Ashish Huertas III, MD [address] [place] [address] [place] [address] 02/24/2024 Ashish Huertas III, MD [address] [place] [address] [place] [address] 02/26/2024 Ashish Huertas III, MD [address] [place] [address] [place] [address] 02/26/2024 Ashish Huertas III, MD [address] [place] [address] [place] [address] 05/03/2024 Ashish Huertas Tobacco dependence F17.200 Ashish Huertas III, MD [address] [place] [address] [place] [address] 05/19/2024 Ashish Huertas III, MD [address] [place] [address] [place] [address] 07/01/2024 Ashish Huertas III, MD [address] [place] [address] [place] [address] 10/04/2024 Ashish Huertas Infection of pelvis M86.9 Ashish Huertas III, MD [address] [place] [address] [place] [address] 11/21/2024 Ashish Huertas III, MD [address] [place] [address] [place] [address] 11/21/2024 Ashish Huertas Assessments Encounter Date Diagnosis [...] 10 pounds. He has been [facility] spine [facility] for physical therapy injections imaging and [...] 10 pounds. He has been referred [facility] for physical therapy injections imaging and evaluation [...] 10 pounds. He has been referred to [facility] spine and sports rehabilitation medicine for [...] diagnosis of porphyria was made by a screw remover at [facility]. He affirms that if he goes into direct sunlight. He will experience blisters and skin lesions. He is well versed in how to prevent this and has medications for his skin. 01/20/2024 Porphyria cutanea tarda (ICD-10 - E80.1) The diagnosis of porphyria was made by a screw remover at [facility]. He affirms that if he goes [...] diagnosis of porphyria was made by a screw remover at [facility]. He affirms that if he goes [...] 10 pounds. He has been referred to [facility] spine and sports rehabilitation medicine for physical therapy injections imaging and evaluation for surgery. 10/28/2024 Porphyria cutanea tarda (ICD-10 - E80.1) The diagnosis of porphyria was made by a screw remover at [facility]. He affirms that if he goes [...] diagnosis of porphyria was made by a screw remover at [facility]. He affirms that if he goes [...] 10 pounds. He has been referred to [facility] spine and sports rehabilitation medicine for [...] 09/15/2022 PROFILE, FASTING (COMPREHENSIVE METABOLI C) 05/23/2024 PROFILE, FASTING (COMPREHENSIVE METABOLI C) 09/23/2023 PROFILE, FASTING (COMPREHENSIVE METABOLI C) 10/28/2024 LIPID PANEL 01/15/2023 LIPID PANEL 09/15/2022 PSA, TOTAL 09/23/2023 PSA, TOTAL 10/28/2024 PSA, TOTAL 05/23/2024 PSA, TOTAL 01/15/2023 PSA, TOTAL 09/15/2022 CBC w DIFF 09/23/2023 CBC w DIFF 01/15/2023 CBC w DIFF 09/15/2022 XR LUMBAR SPINE 09/23/2023 VITAMIN D 25-OH TOTAL 09/15/2022 CBC WITH AUTO DIFF 10/28/2024 CBC WITH AUTO DIFF 05/23/2024 Lipid Panel 09/23/2023 Lipid Panel 10/28/2024 Lipid Panel 05/23/2024 US abdomen complete 11/29/2024 XR thoracic spine 3V 11/27/2023 Routine Culture 02/09/2024 Next Appt Details Provider Name:Ashish Huertas, 01/23/2025 02:30:00 PM, [address] [place] [address] [address], [place], [address], Provider Name:Ashish Huertas, 10/31/2025 02:00:00 PM, [address] [place] [address] [address], [place], [address], Insurance Providers Payer Name Payer Address Payer Phone Subscriber Number Group Number Insured Name Patient Relationship to Insured Coverage Start Date Coverage End Date [facility] [address] [place], [place] [id number] Sid Landeros Self - patient is the insured [address] [place] [address] [id number] Sid Landeros Self - patient is the insured Medical (General) History Medical History History ICD Code COPD (chronic obstructive pulmonary dise ase) J44.9 Hypertension I10 Erectile dysfunction Peripheral vascular disease Environmental allergies History of repaired pilonidal cyst Excised lipoma, left triceps, age 8 Porphyria cutanea tarda, Dr. Brady, [facility] Tobacco dependence Covid19 infection 2021 [...] History Surgery Date(Month/Year) Femoral -popliteal arterial bypass @[facility] 05/2022 Esophagogastricduodoscopy Excision of lipoma, left triceps, age 8 Repair of pilonidal cyst Fracture of 2 fingers Colonoscopy, [facility], Dr. Ramos Arterial [facility] 05/2022 No history Hospitalization History Reason Date(Month/Year) No history
--- OUTSIDE RECORDS SUMMARY | 2024-12-12 15:20 | XMS_ITS ---
Author Organization Ashish Huertas III, MD Address [address] [address] Care Team Providers Care Interior Design Project Manager Name Role Phone Ashish Huertas Primary Care Provider REASON FOR VISIT told patient to call Social History Sex Assigned At : Social History Observation Description Sex Assigned At Male Encounters Encounter Location Date Provider Diagnosis Ashish Huertas III, MD [address] [place] [address] [place] [address] 11/21/2024 Ashish Huertas Plan Of Treatment Next Appt Details Provider Name:Ashish Huertas, 01/23/2025 02:30:00 PM, [address] [place] [address] [place], [address], Provider Name:Ashish Huertas, 10/31/2025 02:00:00 PM, [address] [place] [address] [place], [address], Progress Notes * Sid LANDEROS MDOB: [birth year] (64 yo M)Acc No.[id number]:11/21/2024 Patient:?Sid LANDEROS :1960???Age:64 Y???Sex:Male Address:[address] [place], [address] * true * Date:? Generated for Printi ng/Faxing/eTransmitting on:?12/12/2024 03:20 PM EDT
== END 2024-12-12 13:29 | disposition home or self-care (01) ==
LOC: HO.HGS 13:11
PROVIDERS: PCP Internal Medicine Medical Oncology; Referring Provider Internal Medicine; Visit Provider Surgery
DX: K82.4 Cholesterolosis of gallbladder (principal)
CPT/HCPCS: 99204

== ENCOUNTER 2025-01-09 10:17 | Outpatient (AMB) | payer BC, OTHER, SELFPAY ==
[2025-01-09 10:27] VITALS: BP 150/70; PULSE 97; BMI 24.4
--- NOTE | 2025-01-09 10:27 | A.OFFVIS_ITS ---
Vital Signs 01/09/25 10:27 Height 5 ft 10 in Weight 169 lb 12.095 oz BMI 24.4 BP 150/70 H Blood Pressure Location Lt brachial Position Sitting Pulse 97 Pulse Source Monitor Intake Visit Reasons: rsx1 6 mth f/up Allergies doxycycline Allergy (Verified 12/12/24 13:14) Hives nabumetone Adverse Reaction (Unknown, Verified 12/12/24 13:14) green stools Medication List - Last Reconciled 01/09/25 by Carlos A Fletcher MD amlodipine 10 mg PO DAILY 90 days aspirin (Adult Aspirin Regimen) 81 mg PO DAILY bisacodyl 20 mg (4 x 5 mg) PO ONCE 1 day budesonide-formoterol 160-4.5 mcg/actuation (Symbicort) 2 puffs inhalation BID 90 days clopidogrel 75 mg PO DAILY codeine-guaifenesin 10-100 mg/5 mL 10 mL PO Q4-6H PRN 1 week ibuprofen 800 mg PO Q8H PRN 90 days ipratropium-albuterol 20-100 mcg/actuation (Combivent Respimat) 1 puff inhalation Q6H PRN 90 days nicotine 10 mg inhalation 3XD 30 days nicotine 1 spray intranasal TID 30 days pantoprazole 40 mg PO DAILY polyethylene glycol 3350 (Miralax) 238 grams PO ONCE rosuvastatin 20 mg PO DAILY sildenafil 100 mg PO DAILY PRN HPI Comments Details: Sid returns for follow-up. He has a history of peripheral vascular disease and has had lower extremity vascular surgeries. Based on vascular history, suspected have some coronary disease but nothing documented. Otherwise, also has hypertension, dyslipidemia, smoking. In spite of numerous discussions, he still states he is smoking. Otherwise, he denies any clear-cut symptoms like angina or shortness of breath. His blood pressure readings have shown fluctuations from 130 to 150 mm Hg over the past few months, with the most recent reading being 150 mm Hg. He is currently prescribed amlodipine, but concerns about its lone efficacy have been raised due to variable home readings. In parallel, the patient is dealing with nicotine dependence, consuming around 10 cigarettes daily, resulting in mild respiratory symptoms like wheezing. Past attempts to quit smoking with Chantix were unsuccessful due to adverse cardiovascular side effects, leading him to start using a nicotine nasal spray. An additional finding includes a gallbladder polyp which currently requires no immediate intervention but may necessitate attention alongside the patient's smoking concerns if surgical considerations arise. COUNT INCLUDES THE [facility] Medical History (Updated 11/29/24 @ 14:00 by Natalie Lino MD) Bronchitis Abnormal LFTs ETOH abuse Hereditary hemochromatosis Atherosclerotic cardiovascular disease Bilateral carotid artery stenosis PAD (peripheral artery disease) Murmur HTN (hypertension) Hyperlipidemia COPD (chronic obstructive pulmonary disease) SOB (shortness of breath) Allergic rhinitis Nicotine dependence, cigarettes, uncomplicated GERD (gastroesophageal reflux disease) Tubular adenoma of colon Porphyria cutanea tarda Arthritis Surgical History (Updated 12/12/24 @ 13:31 by Victor Manuel Calderón MD) History of femoropopliteal bypass History of femoropopliteal bypass (11/02/23) S/P angiogram of extremity History of colonoscopy History of esophagogastroduodenoscopy History of lipoma History of skin graft History of removal of cyst History of foot surgery Family History Father Diabetes Stroke Hypertension Mother Chronic mental illness Family/Other FH: mental illness Social History Household Members: Spouse Housing: House Are you a primary student career development specialist to a significant other at home: No Do you presently have visiting nurse or other home services: No 75 years or older and lives alone: No Alcohol intake: current Alcohol intake frequency: a few times a month Alcohol type: beer Comment: residual pain in left foot, but much improved and tolerable per patient. 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 occupational exposures/hazards: No Cognitive needs: No Hearing needs: No Vision needs: Yes Review of Systems Const Denies weakness ENT Denies dizziness Card Denies chest pain, Denies chest pain with activity, Denies syncope, Denies rapid heart rate, Denies pedal edema, Denies edema, Denies leg edema, Denies lightheadedness, Denies palpitations, Denies dyspnea, Denies dyspnea on exertion and Denies orthopnea Resp Denies cough, Denies dyspnea and Denies dyspnea on exertion GI Denies hematochezia and Denies change in stool character Musc Denies abnormal gait, Denies muscle cramps, Denies muscle weakness, Denies numbness, Denies radiating pain into limb and Denies tingling Neuro Denies abnormal gait, Denies dizziness, Denies syncope, Denies numbness, Denies tingling and Denies weakness Endo Denies palpitations Physical Exam Vital Signs: Last Vital Signs Pulse 97 01/09/25 10:27 BP 150/70 H 01/09/25 10:27 BMI result Body Mass Index 24.4 Const General: comfortable and no acute distress Orientation/consciousness: patient oriented x3 HEENT Other: Unremarkable Head: Yes normal to inspection Neck Neck: Yes normal visual inspection Chest Chest palpation & inspection: normal inspection of the chest Resp Other: Slight wheezing Auscultation: diminished lung sounds Cardio Palpation: normal PMI Heart sounds: S1 normal heart sound present, S2 normal heart sound present, no gallops, no murmurs and no rubs GI Palpation (GI): Soft to palpation Back/Spine/Pelvis Other: unremarkable Skin General skin exam: no rashes or lesions noted Neuro General: patient oriented x3 Extrem General: Yes normal to inspection Psych Mental Status: mental status grossly normal Office Procedures EKG Details: EKG with underlying sinus rhythm at 97/Min; rightward axis; no significant ST-T changes; [place]. [address]-Yitpqfdbiyrumtsax, Complete Assessment & Plan Assessment & Plan (1) Atherosclerotic cardiovascular disease: Code(s): I25.10 - Atherosclerotic heart disease of pauma coronary artery without angina pectoris Category: Medical (2) PAD (peripheral artery disease): Comment: 06/16/2022 - left femoral to popliteal bypass 10/21/2023 - Left external iliac plasty 11/02/2023 - thrombectomy of left fem-pop bypass with distal anastomosis plasty Code(s): I73.9 - Peripheral vascular disease, unspecified Category: Medical (3) Nicotine dependence, cigarettes, uncomplicated: Comment: (current smoker, onset 17yo, 1ppd x 46yrs, had cut it down to few cigarettes a day but now in the past few months has gone back to 1 pack a day, He is trying to cut down the number of cigarettes and claims that he is down to 3-5 cigarettes a day. He and his both are trying to quit smoking Code(s): F17.210 - Nicotine dependence, cigarettes, uncomplicated Category: Medical (4) Hyperlipidemia: Code(s): E78.5 - Hyperlipidemia, unspecified Category: Medical Plan Multiple risk factors, established peripheral vascular disease but no documented coronary disease. At high-risk for the same. Last echocardiogram with LVEF of 60-65% otherwise unremarkable. Last perfusion imaging study with mild reversible distal anterior/apical defect but there was improvement with CT attenuation correction and normal contractility. Hence thought to be more from soft tissue attenuation artifact and less likely from mild ischemia. Chest CT scan however does show some coronary artery calcification. Overall, continue treatment for stable coronary disease/vascular disease and aggressive risk factor modification. Discussed about smoking cessation numerous times including today but he is still smoking. He is aware of risks. With regard to blood pressure, slightly on the higher side today. Start losartan. Check labs in a few days after that. With regard dyslipidemia, on statins. Last LDL 67 mg/dL. Last triglycerides 39 mg/dL. Follow-up in 6 months. In the interim, if any concerns like chest pain, advised him seek urgent help immediately. Patient was informed and verbally consented to the use of an ambient scribe for clinic note documentation during this visit. Discussion Notes During our discussion, I explained to the patient that his antihypertensive regimen requires optimization due to recent variability and other readings. I addressed the fluctuations in blood pressure and outlined a plan to incorporate an additional medication, outlining the importance of consistent blood pressure monitoring. Regarding new prescriptions, I consented to perform blood work to monitor potential metabolic changes. The risks of uncontrolled blood pressure, such as cardiovascular complications, were discussed. For smoking cessation, we reviewed his current nicotine use and risks, emphasizing complete cessation given the gallbladder polyp. The patient understood the new prescription would be arranged at his chosen pharmacy. The follow-up focused on evaluating current management effectiveness with plans adjusted as needed. Orders: Orders Basic Metabolic Panel 2 Weeks I10 - Essential (primary) hypertension Medications: New losartan 25 mg PO DAILY 90 tabs 1RF Patient Instructions: - Continue taking amlodipine as prescribed and begin the new antihypertensive medication. - Monitor your blood pressure at home regularly with an updated device; aim for readings closer to 130/80 mm Hg. - Return for blood work in about two weeks to check for any changes in electrolytes due to the new medication. - Work towards smoking cessation, continue using the nicotine nasal spray, and reduce cigarette use as much as possible. - Follow up in six months or sooner if there are concerns or significant blood pressure changes. - Seek medical care if experiencing any new or worsening symptoms such as chest pain, shortness of breath, or significant blood pressure changes. Coding Level of Care Code Est Pt Level 4 (70057) Complex EM visit Add On G2211 Diagnoses Atherosclerotic cardiovascular disease I25.10 PAD (peripheral artery disease) I73.9 Nicotine dependence, cigarettes, uncomplicated F17.210 Hyperlipidemia E78.5 CPT Codes EKG - CPT: 45230-Qlgdozpdvpnjynpoa, Complete ([id number])
--- OUTSIDE RECORDS SUMMARY | 2025-01-09 11:44 | XMS_ITS | Encounter Summary ---
Author Name [facility] [place] [facility] [place] Organization [facility] [place] Address [address] [place] [id number] Care Team Providers Care Ground Host/Hostess Name Role Phone ORTIZ RIZO Primary Care Provider Unavailable Selected Encounter This section includes the information on record at [place] for the Encounter. Date/Time Encounter Type Encounter Description Reason Provider Source Jan 09, 2025 08:49 AM Outpatient Encounter PRIMARY CARE/MEDICINE KATIA HUNTLEY Encounter Template Text not used by [place] Plan of Treatment: Future Appointments (+ 6 months) and Future Tests (+/- 45 days) The Plan of Treatment section includes future care activities for the patient from all [place] [facility]. This section includes future appointments and future orders which are active, pending or scheduled. Future Appointments This section includes appointments that were scheduled to occur 6 months from the date of the Encounter, up to a maximum of 20 appointments. The data comes from all [place] treatment facilities. Appointment Date/Time Appointment Type Appointme nt Facility Name January 31, 2025 09:00 AM AMBULATORY - MEDICINE [facility] Jun 27, 2025 09:00 AM AMBULATORY MEDICINE [facility] Active, Pending, and Scheduled Orders This section includes a listing of several types of active, pending, and scheduled orders, including clinic medications orders, diagnostic test orders, procedure orders and consult orders; where the start date of the order is 45 days before the date of the Encounter or 45 days after the date of theEncounter. The data comes from all [place] treatment facilities. Test Date/Time Test Type Test Details Facility Name Dec 29, 2024 12:00 AM Laboratory - Chemi stry Order LIVER FUNCTION BLOOD (SST-SERUM) [facility] Dec 29, 2024 12:00 AM Laboratory - Chemi stry Order LIPID PANEL FASTING BLOOD (SST-SERUM) [facility] Dec 29, 2024 12:00 AM Laboratory - Chemi stry Order CBC AND DIFF (AUTO) BLOOD (LAV-BLOOD) [facility] Dec 29, 2024 12:00 AM Laboratory - Chemi stry Order FERRITIN BLOOD (SST-SERUM) [facility] Dec 29, 2024 12:00 AM Laboratory - Chemi stry Order PSA BLOOD (SST-SERUM) [facility] Dec 29, 2024 12:00 AM Laboratory - Chemi stry Order BASIC METABOLIC PANEL (fasting) BLOOD (SST-SERUM) [facility] Dec 29, 2024 12:00 AM Laboratory - Chemi stry Order HEPATITIS B SURFACE ANTIBODY (HBsAb)-WH BLOOD (SST-SERUM) [facility] Dec 29, 2024 12:00 AM Laboratory - Chemi stry Order HEPATITIS C ANTIBODY (HCV)-ARC BLOOD (MARBLED-TOP SERUM) [facility] Dec 29, 2024 12:00 AM Laboratory - Chemi stry Order HIV 1&2 Ag/Ab SCREEN BLOOD (SST-SERUM) [facility] Social History: Smoking Status (Most current) and Tobacco Use (All prior to encounter date) This section includes the most current, and the historical, smoking and tobacco- related health factors from the [facility] where the Encounter took place. Current Smoking Status This section includes the most current smoking, or tobacco-related health factor, from the [place] facility where the Encounter took place. Date/Time Current Smoking Status Comment Facil ity Dec 24, 2024 11:02 AM RI-TOBACCO USE MALLORY RY DAY CIGARETTES [facility] Tobacco Use History This section includes a history of the smoking, or tobacco-related health factors, that were collected on or before the date of the Encounter. The data comes from the [place] facility where the Encounter took place. Date/Time Smoking Status/Tobacco Use Comment F acility Dec 24, 2024 11:02 AM VA-TOBACCO SCREEN FOLLOW-UP [facility] Dec 24, 2024 11:02 AM VA-TOBACCO USE ADVICE [place] [facility] [place] [facility] Dec 24, 2024 11:02 AM VA-TOBACCO USE HUMAN RESOURCES PARTNER NO [place] [facility] Dec 24, 2024 11:02 AM VA-TOBACCO USE MALLORY RY DAY CIGARETTES [place] [facility] Dec 24, 2024 11:02 AM [facility]ACCO [facility] Advance Directives: All historical and current Section Date Range: From patient's date of to the date document was created. This section includes ALL of a patient's completed or amended [place] Advance and Rescinded Directives. The entries below indicate that a directive exists for the patient, but an actual copy is not included with this document. The data comes from all [place] facilities. Date Advance Directives Provider Source Dec 29, 2024 ADVANCE DIRECTIVE KATIA HUNTLEY [facility] Encounter Notes: All associated encounter notes This section contains the clinical notes associated to the Encounter. Date/Time Encounter Note(s) Provider Source Jan 09, 2025 08:49 AM PRIMARY CARE SECUR E MESSAGING: LOCAL TITLE: PRIMARY CARE SECURE MESSAGING STANDARD TITLE: PRIMARY CARE SECURE MESSAGING DATE OF NOTE: JAN 09, 2025@08:49 ENTRY DATE: JAN 09, 2025@08:49:39 AUTHOR: KATIA HUNTLEY EXP COSIGNER: URGENCY: STATUS: COMPLETED ------Original Message -------- Sent: 01/09/2025 08:49 AM ET From: KATIA HUNTLEY To: NATASHA WHYTE Subject: General:smoking cessation Good morning, Leti, From [place]: The [place] has four options in [place]: Individual therapy, Group sessions, Nicotine Replacement, and Hypnosis . I am happy to place a referral to one of those choices. One No-show will disqualify you from the program Thank you. Be well. Katia Huntley LPN Pact 1 Primary Care Nurse /es/ KATIA HUNTLEY LPN LPN Signed: 01/09/2025 08:49 [facility]
--- OUTSIDE RECORDS SUMMARY | 2025-01-09 11:45 | XMS_ITS | Encounter Summary ---
Author Name [facility] [place] [place] Organization [facility] [place] Address [address] [place] [id number] Care Team Providers Care Chief Supply Chain Officer Name Role Phone ORTIZ RIZO Primary Care Provider Unavailable Selected Encounter This section includes the information on record at [place] for the Encounter. Date/Time Encounter Type Encounter Description Reason Pro vider Source Jan 04, 2025 10:26 AM Outpatient Encounter PRIMARY CARE/MEDICINE I[facility] Encounter Template Text not used by [place] Plan of Treatment: Future Appointments (+ 6 months) and Future Tests (+/- 45 days) The Plan of Treatment section includes future care activities for the patient from all [place] [facility]. This section includes future appointments and future orders which are active, pending or scheduled. Future Appointments This section includes appointments that were scheduled to occur 6 months from the date of the Encounter, up to a maximum of 20 appointments. The data comes from all [place] treatment facilities. Appointment Date/Time Appointment Type Appointme nt Facility Name January 31, 2025 09:00 AM AMBULATORY - MEDICINE [facility] Jun 27, 2025 09:00 AM AMBULATORY - MEDICINE [facility] Active, Pending, and Scheduled Orders This section includes a listing of several types of active, pending, and scheduled orders, including clinic medications orders, diagnostic test orders, procedure orders and consult orders; where the start date of the order is 45 days before the date of the Encounter or 45 days after the date of theEncounter. The data comes from all [place] treatment facilities. Test Date/Time Test Type Test Details Facility Name Dec 29, 2024 12:00 AM Laboratory - Chemi stry Order LIVER FUNCTION BLOOD (SST-SERUM) [facility] Dec 29, 2024 12:00 AM Laboratory - Chemi stry Order LIPID PANEL FASTING BLOOD (SST-SERUM) [facility] Dec 29, 2024 12:00 AM Laboratory - Chemi stry Order CBC AND DIFF (AUTO) BLOOD (LAV-BLOOD) [facility] Dec 29, 2024 12:00 AM Laboratory - Chemi stry Order FERRITIN BLOOD (SST-SERUM) [facility] Dec 29, 2024 12:00 AM Laboratory - Chemi stry Order PSA BLOOD (SST-SERUM) [facility] Dec 29, 2024 12:00 AM Laboratory - Chemi stry Order BASIC METABOLIC PANEL (fasting) BLOOD (SST-SERUM) [facility] Dec 29, 2024 12:00 AM Laboratory - Chemi stry Order HEPATITIS B SURFACE ANTIBODY (HBsAb)-WH BLOOD (SST-SERUM) [facility] Dec 29, 2024 12:00 AM Laboratory - Chemi stry Order HEPATITIS C ANTIBODY (HCV)-ARC BLOOD (MARBLED-TOP SERUM) [facility] Dec 29, 2024 12:00 AM Laboratory - Chemi stry Order HIV 1&2 Ag/Ab SCREEN BLOOD (SST-SERUM) [facility] Social History: Smoking Status (Most current) and Tobacco Use (All prior to encounter date) This section includes the most current, and the historical, smoking and tobacco- related health factors from the [facility] where the Encounter took place. Current Smoking Status This section includes the most current smoking, or tobacco-related health factor, from the [place] facility where the Encounter took place. Date/Time Current Smoking Status Comment Facil ity Dec 24, 2024 11:02 AM AR-TOBACCO USE MALLORY RY DAY CIGARETTES [facility] Tobacco Use History This section includes a history of the smoking, or tobacco-related health factors, that were collected on or before the date of the Encounter. The data comes from the [place] facility where the Encounter took place. Date/Time Smoking Status/Tobacco Use Comment F acility Dec 24, 2024 11:02 AM VA-TOBACCO [facility]EN [facility] Dec 24, 2024 11:02 AM VA-TOBACCO USE ADVICE [facility] Dec 24, 2024 11:02 AM VA-TOBACCO USE POWER HOUSE ENGINEER NO [facility] Dec 24, 2024 11:02 AM VA-TOBACCO USE MALLORY RY DAY CIGARETTES [facility] Dec 24, 2024 11:02 AM VA-TOBACCO USE MED NO [facility] Advance Directives: All historical and current Section Date Range: From patient's date of to the date document was created. This section includes ALL of a patient's completed or amended [place] Advance and Rescinded Directives. The entries below indicate that a directive exists for the patient, but an actual copy is not included with this document. The data comes from all [place] facilities. Date Advance Directives Provider Source Dec 29, 2024 ADVANCE DIRECTIVE SENIA HUNTLEY [facility] Encounter Notes: All associated encounter notes This section contains the clinical notes associated to the Encounter. Date/Time Encounter Note(s) Provider Source Jan 04, 2025 10:26 AM PREVENTIVE MEDICIN E NURSING NOTE: LOCAL TITLE: CLINICAL REMINDERS/NURSING STANDARD TITLE: PREVENTIVE MEDICINE NURSING NOTE DATE OF NOTE: JAN 04, 2025@10:26 ENTRY DATE: JAN 04, 2025@10:26:44 AUTHOR: MILLIE NICOLE EXP COSIGNER: URGENCY: STATUS: COMPLETED Td/Tdap Immunization: Prior Td vaccination The patient was vaccinated in the past and written documentation of vaccination is available. The patient has previously received the Tetanus, Diphtheria, Pertussis vaccine (Tdap). Documented: TDAP Historical Date Administered: Nov 28, 2013 Outside Location: Outside Healthcare Provider Information Source: FROM PATIENT'S WRITTEN RECORD /silke/ MILLIE NICOLE, MSN, RN, CNL PRIMARY CARE TEAM NURSE Signed: 01/04/2025 10:29 MILLIE NICOLE [facility]
--- OUTSIDE RECORDS SUMMARY | 2025-01-09 11:45 | XMS_ITS | Continuity of Care Document ---
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 It does not include entries that were removed or entered in error. Problem Status Onset Date Problem Type Date of Resolution Comments Source Polyp of gallbladder Active 2024 Condition Dec 29, 2024 Entered By: Logan RIZO Comment: Surgery rec. US q 6 mo [facility] Acute bronchitis Active Condition Dec 24, 2024 Entered By: MICHAEL BOSWELL Comment: due to other specified organisms [facility] Arthritis Active Condition Dec 24 Entered By: MICHAEL BOSWELL Comment: Lower Back, Neck, Fingers, Hands [facility] Benign prostatic hyperplasia Active Condition [facility] Bilateral cataracts Active Condition Dec 29, 2024 Entered By: Logan RIZO Comment: monitoring w/ ophthalmol [facility] Chronic obstructive pulmonary disease Active Condition [facility] Erectile dysfunction Active Condition [facility] Essential hypertension Active Condition [facility] Exposure to potentially hazardous substance ([facility] [id number]) Active Condition Dec 30 Entered By: GRACE PRINGLE Comment: Entered automatically through [facility] Problem List documentation program [facility] Hemochromatosis Active Condition Dec 26, 2024 Entered By: Logan RIZO Comment: Hematol note 2020. 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 Ramos- 2020- Needs Colonoscopy ordered [facility] Hypercholesterolemia Active Condition [facility] Iron overload Active Condition [facility] Lumbar radiculopathy Active Condition Dec 24, 2024 Entered By: MICHAEL BOSWELL Comment: Lumbar radiculopathy, right [facility] Obesity Active Condition [facility] Peripheral arterial occlusive disease Active Condition [facility] Peripheral vascular disease Active Condition Dec 29, 2024 Entered By: Logan RIZO Comment: 10/2023 Revision L Fem-Pop bypass Dr Orr-[facility] Pilonidal cyst Active Condition Nov 272024 Entered By: MICHAEL BOSWELL Comment: (L05.91)- History of repaired pilonidal cyst [facility] Porphyria cutanea tarda Active Condition [facility] Tobacco dependence Active Condition [facility] History of occlusive disease of artery of lower extremity Inactive Condition 12/26/2024 [facility] Diagnosis: ICD-10-CM I73.9 Peripheral vascular disease, unspecified Active Diagnosis [facility] Medications Combined list of outpatient medications from Department of Defense and Veterans Affairs facilities.Medications provided include 1) outpatient medications from the last 15 months, and 2) patient-reported medications. Medication Details Route Status Patient Instructions Prescription Expires Prescription Number Last Dispense Date Ordering Provider Order Date Order Qty Source ALBUTEROL 100MCG/IPRA TROPIUM BR 20MCG/SPRAY INHALER,ORA L,4GM INHALE 1 PUFF BY MOUTH FOUR TIMES DAILY NEEDED RESPIR ATORY (INHAL ATION) HOLD 12/30/2025 [id number] WILFREDO WALKER 2024 3 [facility] AMLODIPINE BESYLATE 10MG TAB TAKE ONE TABLET BY MOUTH ONCE DAILY FOR BLOOD PRESSURE /HEART, DO NOT TAKE WITH GRAPEFRU IT JUICE ORAL HOLD 12/30/2025 [id number] 5 WILFREDO WALKER 2024 90 [facility] ASPIRIN 81MG TAB,EC TAKE ONE TABLET BY MOUTH ONCE DAILY TO PREVENT STROKE/H EART ATTACK ORAL HOLD 12/30/2025 [id number] WILFREDO WALKER 2024 120 [facility] [place] [facility] CLOPIDOGREL BISULFATE 75MG TAB TAKE ONE TABLET BY MOUTH ONCE DAILY ORAL HOLD 12/30/2025 [id number] 5 WILFREDO WALKER 2024 90 [facility] FLUTICASONE 250MCG/SALM ETEROL 50MCG INHL,ORAL,D ISKUS,60 INHALE 1 PUFF BY MOUTH TWICE DAILY - RINSE MOUTH AFTER USE RESPIR ATORY (INHAL ATION) HOLD 12/30/2025 [id number] 5 WILFREDO WALKER 2024 3 [facility] IBUPROFEN 800MG TAB TAKE ONE TABLET BY MOUTH THREE TIMES DAILY WITH MEALS TAKE WITH FOOD ORAL HOLD 12/30/2025 [id number] 5 [facility]ED[facility] WALKER 2024 90 [facility] NICOTINE 10MG/ML SOLN,NASAL SPRAY INSTILL 1 SPRAY INTO EACH NOSTRIL SIX TIMES A DAY NEEDED FOR SMOKING CESSATIO N NASAL HOLD 12/30/2025 [id number] 5 [facility] WALKER 2024 30 [facility] PANTOPRAZOL E NA 40MG TAB,EC TAKE ONE TABLET BY MOUTH EVERY MORNING 30 MINUTES BEFORE BREAKFAS T ORAL HOLD 12/30/2025 [id number] 5 [facility]WILFREDO PIERRE 2024 90 [facility] ROSUVASTATI N CA 40MG TAB TAKE ONE-HALF TABLET BY MOUTH ONCE DAILY FOR CHOLESTE ROL ORAL HOLD 12/30/2025 [id number] 5 KALENPANKAJ [facility] 2024 45 [facility] SILDENAFIL CITRATE 100MG TAB TAKE ONE TABLET BY MOUTH NEEDED TAKE 1 HOUR PRIOR TO SEXUAL ACTIVITY ORAL HOLD 12/30/2025 [id number] 5 KALENPANKAJ [facility] 2024 18 [facility] Allergies, Adverse Reactions, Alerts Combined list of allergies from Department of Defense and Veterans Affairs facilities. It does not include entries that were removed or entered in error. Substance Category Reaction Severity Reaction type Status Date Reported Comments Source DOXYCYCLINE Propensity to adverse reactions to drug (finding) Urticaria active 5 [facility] Immunizations Combined list of available immunizations from the Department of Defense and Veterans Affairs facilities. Immunization Series Date Given Administered By Site Reaction Lot Number CVX Code Drug Fusing Machine Feeder Status Comments Source COVID-19 (MODERNA), MRNA, LNP-S, PF, 100 MCG/0.5ML DOSE OR 50 MCG/0.25ML DOSE 2 2020 207 complet ed HISTORICA L INFORMATI ON - FROM OTHER REGISTRY, COVID 19 Moderna Mfr: MODERNA [employer] [facility] COVID-19 (MODERNA), MRNA, LNP-S, PF, 100 MCG/0.5ML DOSE OR 50 MCG/0.25ML DOSE 1 2020 207 complet ed HISTORICA L INFORMATI ON - FROM OTHER REGISTRY, COVID 19 Modern[employer] Mfr: [employer] US[employer] [facility] PNEUMOCOCCAL POLYSACCHARID E PPV23 2019 33 complet ed HISTORICA L INFORMATI ON - FROM OTHER REGISTRY, PPV 23 [facility] TDAP 2013 115 complet ed HISTORICA L INFORMATI ON - FROM PATIENT'S WRITTEN RECORD, TDAP [facility] Vital Signs Combined list of inpatient and outpatient Vital Signs from Department of Defense and Veterans Affairs, ranging from 12 months to all on record, depending upon the facility. Vital Sign Value Date Comments Source SYSTOLIC BLOOD PRESSURE 148 12/30/19 25 08:51:34 [facility] DIASTOLIC BLOOD PRESSURE 84 025 08:51:34 [facility] PULSE OXIMETRY 96 12/29/2024 08:51:34 [facility] WEIGHT 172 12/29/2024 08:51:34 [facility] BMI 24 kg/m2 12/29/2024 08:51:34 [facility] PAIN 0 12/29/2024 08:51:34 [facility] HEIGHT 70.5 12/29/2024 08:51:34 [facility] TEMPERATURE 98 12/29/2024 08:51:34 [facility] PULSE 106 12/29/2024 08:51:34 [facility] RESPIRATION 16 12/29/2024 08:51:34 [facility] Encounters Combined list of: 1) Encounters from Department of Veterans Affairs facilities going backup to the last 18 months, not all VA inpatient encounters are included; 2) Encounters from the Department of Defense facilities going backup to 280 months. Location Location Details Encounter Type Encounter Number Reason For Visit Attending Provider ADM Date DC Date Status Disposition Source [facility] Outpatient Encounter [id number] 12/19 [facility] Outpatient [facility]counter [id number] 12/24 [place] [facility] [place] [facility] [facility] [place] [facility] OFFICE O/P [place] 60 MIN [id number] Diagnos is: ICD-10- CM I73.9 Periphe ral vascula r disease , unspeci fied HIGUERA-VEC JAG,EDYTA NIKI PIERRE 12/29 [place] [facility] [place] [facility] [place] [facility] Outpatient [facility]counter [id number] 01/03 [place] [facility] [place] [facility] [place] [facility] Outpatient Encounter [id number] 01/04 [place] [facility] [place] [facility] [place] [facility] Outpatient Encounter [id number] ANAHY HUNTLEY [facility] Social History Combined list of available smoking, tobacco, and other social history from Department of Defense and Veterans Affairs facilities. Social History Type Response Date Comment Sourc e Tobacco smoking status NHIS [facility]-TOBACCO USE EVERY DAY CIGARETTES 12/24/2024 [facility] History of tobacco use [facility]-TOBACCO NEVER USED OTHER TYPE 12/24/2024 [facility] Plan of Care List of future care activities from Department of Veterans Affairs facilities. Additional future care activities may be listed in the Assessment and Plan section. Date/Time Care Activity Care Activity Detail Facili ty 01/31/2025 AMBULATORY - MEDICINE AMBULATORY - MEDICI NE [facility] Advance Directives List of completed, amended, or rescinded Advance Directives on record at Department of Veterans Affairs facilities. An actual copy of the Directive is not included. Date Advance Directive Provider Source 12/29/2024 ADVANCE DIRECTIVE SENIA HUNTLEY [facility]
--- OUTSIDE RECORDS SUMMARY | 2025-01-09 11:45 | XMS_ITS ---
Author Name [facility] [place] Organization [facility] [place] Address [address] [place] [id number] Care Team Providers Care Director Housekeeping Name Role Phone ORTIZ RIZO Primary Care Provider Unavailable Selected Encounter This section includes the information on record at [place] for the Encounter. Date/Time Encounter Type Encounter Description Reason Provider Source Dec 29, 2024 09:00 AM OFFICE O/P NEW SC 60 MIN PRIMARY CARE/MEDICINE ICD-10-CM I73.9 Peripheral vascular disease, unspecified ORTIZ RIZO [facility] Encounter Template Text not used by [place] Assessments - Encounter Diagnoses This section includes the primary and secondary diagnoses documented for the Encounter. Date/Time Primary/Secondary Diagnosis Diagnosis Name Provider Source Dec 29, 2024 07:59 PM PRIMARY Peripheral vascular disease, unspecified [facility] [place] [facility] Dec 29, 2024 07:59 PM SECONDARY Chronic obstructive pulmonary disease, unspecified [facility] [place] [facility] Dec 29, 2024 07:59 PM SECONDARY Contact with and exposure to other hazardous substances ORTIZ RIZO [facility] [place] [facility] Dec 29, 2024 07:59 PM SECONDARY Disorder of arteries and arterioles, unspecified [facility] [place] [facility] Dec 29, 2024 07:59 PM SECONDARY Essential (primary) hypertension [facility]IZO [facility] [place] [facility] Dec 29, 2024 07:59 PM SECONDARY Hemochromatosis, unspecified KALEN-HUONG ,ORTIZ GARCIABETH [facility] Dec 29, 2024 07:59 PM SECONDARY Nicotine dependence, other tobacco product, uncomplicated KALEN-HUONG ,[facility] Plan of Treatment: Future Appointments (+ 6 months) and Future Tests (+/- 45 days) The Plan of Treatment section includes future care activities for the patient from [facility] [place] [facility]. This section includes future appointments and future orders which are active, pending or scheduled. Future Appointments This section includes appointments that were scheduled to occur 6 months from the date of the Encounter, up to a maximum of 20 appointments. The data comes from all [facility]. Appointment Date/Time Appointment Type Appointme nt Facility Name January 31, 2025 09:00 AM AMBULATORY - [facility] Jun 27, 2025 09:00 AM AMBULATORY [facility] Active, Pending, and Scheduled Orders This section includes a listing of several types of active, pending, and scheduled orders, including clinic medications orders, diagnostic test orders, procedure orders and consult orders; where the start date of the order is 45 days before the date of the Encounter or 45 days after the date of theEncounter. The data comes from all [facility]. Test Date/Time Test Type Test Details Facility Name Dec 29, 2024 12:00 AM Laboratory - Chemi stry Order LIVER FUNCTION BLOOD (SST-SERUM) [facility] Dec 29, 2024 12:00 AM Laboratory - Chemi stry Order LIPID PANEL FASTING BLOOD (SST-SERUM) [facility] Dec 29, 2024 12:00 AM Laboratory - Chemi stry Order CBC AND DIFF (AUTO) BLOOD (LAV-BLOOD) [facility] Dec 29, 2024 12:00 AM Laboratory - Chemi stry Order FERRITIN BLOOD (SST-SERUM) [facility] Dec 29, 2024 12:00 AM Laboratory - Chemi stry Order PSA BLOOD (SST-SERUM) [facility] Dec 29, 2024 12:00 AM Laboratory - Chemi stry Order BASIC METABOLIC PANEL (fasting) BLOOD (SST-SERUM) [facility] Dec 29, 2024 12:00 AM Laboratory - Chemi stry Order HEPATITIS B SURFACE ANTIBODY (HBsAb)-WH BLOOD (SST-SERUM) [facility] Dec 29, 2024 12:00 AM Laboratory - Chemi stry Order HEPATITIS C ANTIBODY (HCV)-ARC BLOOD (MARBLED-TOP SERUM) [facility] Dec 29, 2024 12:00 AM Laboratory - Chemi stry Order HIV 1&2 Ag/Ab SCREEN BLOOD (SST-SERUM) [facility] Vital Signs: All taken on the encounter date This section contains inpatient and outpatient Vital Signs collected on the date of the Encounter. Date/Time Temperature Pulse Blood Pressure Respiratory Rate SP02 Pain Height Weight Body Mass Index Source Dec 29, 2024 10:21 AM 142/86 [facility] Dec 29, 2024 08:51 AM 98 106 148/84 16 96 0 70.5 172 24 [facility] Social History: Smoking Status (Most current) and Tobacco Use (All prior to encounter date) This section includes the most current, and the historical, smoking and tobacco- related health factors from the [place] facility where the Encounter took place. Current Smoking Status This section includes the most current smoking, or tobacco-related health factor, from the [place] facility where the Encounter took place. Date/Time Current Smoking Status Comment Facil ity Dec 24, 2024 11:02 AM VA-TOBACCO USE MALLORY RY DAY CIGARETTES [facility] Tobacco Use History This section includes a history of the smoking, or tobacco-related health factors, that were collected on or before the date of the Encounter. The data comes from the [place] facility where the Encounter took place. Date/Time Smoking Status/Tobacco Use Comment F acility Dec 24, 2024 11:02 AM VA-TOBACCO SCREEN FOLLOW-UP [facility] Dec 24, 2024 11:02 AM VA-TOBACCO USE ADVICE [place] [facility] [place] [facility] Dec 24, 2024 11:02 AM VA-TOBACCO USE RN ER NO [facility] [place] [facility] Dec 24, 2024 11:02 AM VA-TOBACCO USE MALLORY RY DAY CIGARETTES [place] [facility] [place] [facility] Dec 24, 2024 11:02 AM VA-TOBACCO USE MED NO [place] [facility] Advance Directives: All historical and current Section Date Range: From patient's date of to the date document was created. This section includes ALL of a patient's completed or amended [place] Advance and Rescinded Directives. The entries below indicate that a directive exists for the patient, but an actual copy is not included with this document. The data comes from all [place] facilities. Date Advance Directives Provider Source Dec 29, 2024 ADVANCE DIRECTIVE SENAI HUNTLEY [facility] RUSTN [facility] Encounter Notes: All associated encounter notes This section contains the clinical notes associated to the Encounter. Date/Time Encounter Note(s) Provider Source Jan 07, 2025 04:48 PM TELEPHONE ENCOUNTER NOTE: LOCAL TITLE: TELEPHONE NOTE/PA STANDARD TITLE: TELEPHONE ENCOUNTER NOTE DATE OF NOTE: JAN 07, 2025@16:48 ENTRY DATE: JAN 07, 2025@16:48:34 AUTHOR: MEHDI RIZO COSIGNER: URGENCY: STATUS: COMPLETED TELEPHONE NOTE/PA Has ADDENDA Please outreach [place] re: Smoking cessation support. The [place] has four options in [place]: Individual therapy, Group sessions, Nicotine Replacement, and Hypnosis . I am happy to place a referral to one of those choices. *Note: One No-show will disqualify him from the program, so he has to be committed. Thank you. /silke/ ORTIZ RIZO PA-C PA-C Signed: 01/07/2025 16:51 Receipt Acknowledged By: 01/09/2025 08:50 /luis armando HUNTLEY LPN LPN 01/09/2025 ADDENDUM STATUS: COMPLETED sent via /silke/ SENIA HUNTLEY LPN LPN Signed: 01/09/2025 08:50 KALENZuriWILFREDO BORJA [place] [facility] [place] [facility] Dec 29, 2024 01:22 PM ADVANCE DIRECTIVE: LOCAL TITLE: ADVANCE DIRECTIVE STANDARD TITLE: ADVANCE DIRECTIVE DATE OF NOTE: DEC 29, 2024@13:22 ENTRY DATE: DEC 29, 2024@13:22:56 AUTHOR: SENIA HUNTLEY EXP COSIGNER: URGENCY: STATUS: COMPLETED [place] Advance Directive Form [id number] Advance directive reviewed, forwarded to [facility] for scanning. Name of Healthcare Agent: Rosetta Salcedo Relationship to : spouse Name of Alternate Healthcare Agent: Relationship to : Phone Number: /silke/ SENAI HUNTLEY LPN LPN Signed: 12/29/2024 13:25 SENIA HUNTLEY [facility] [place] [facility] Dec 29, 2024 08:56 AM PREVENTIVE MEDICINE NURSING NOTE: LOCAL TITLE: CLINICAL REMINDERS/NURSING STANDARD TITLE: PREVENTIVE MEDICINE NURSING NOTE DATE OF NOTE: DEC 29, 2024@08:56 ENTRY DATE: DEC 29, 2024@08:56:33 AUTHOR: SENIA HUNTLEY EXP COSIGNER: URGENCY: STATUS: COMPLETED RHS Screen: RHS Screen Session Format: Face to Face Environmental Check Upon inquiry, the individual reports that the environment is safe to proceed. Informed Consent to Screen and Document The individual consents to proceed with screening. The individual consents to documentation of responses. PRIMARY SCREEN: In the past 12 months, how often did a current or former intimate partner (e.g., boyfriend, girlfriend, , , sexual partner): 1. Scream or curse at you Never 2. Insult or talk down to you Never 3. Threaten you with harm Never 4. Physically hurt you Never 5. Force or pressure you to have sexual contact against your will, or when you were unable to say no Never ?? The HITS tool (items 1-4 above) is [place] copyright protected by Jose Edwards MD, and the user has full rights to use it throughout the [place] system. PRIMARY SCREEN RESULT: The Primary Screen is NEGATIVE. The individual answered never to all forms of IPV above (i.e., answered never to all 5 items) The individual accepts education and/or resources: Other: N/A EDUCATION: Other: N/A Sexual Orientation: The patient thinks of their sexual orientation as: Straight or Heterosexual (Optional) Whole Health Documentation: What matters the most to you? What motivates you to be healthy? 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 Printed information was offered and provided if desired. Fuel: Comment: diesel fuel exhaust /caregiver was made aware of educational resources and printed information was offered and provided if desired. [place] Health Care Enrollment and Eligibility Questions /caregiver was informed of local point of contact. Contact information for local resources: Benefits/Claim for Disability Compensation Questions:National VBA [place] Healthcare Enrollment: [facility] Eligibility direct dialed at [phone] Registry: [facility] Health Coordinator ext [phone] Toxic Exposure Screening Follow-Up reminder is needed. Name of person notified: Manasa Duque Risk Colorectal Cancer Screen: AVERAGE RISK colorectal cancer screening is due based on information available to this clinical reminder Herpes Zoster (Shingles) Vaccine: The patient declines to receive the recommended dose of zoster (shingles) vaccine. Immunization: ZOSTER RECOMBINANT Refusal Reason: PATIENT DECISION Patient refuses all immunization(s) in the ZOSTER group Date Documented: 12/29/24 09:18 COVID-19 Immunization: Refused Moderna Monovalent COVID-19 vaccine Immunization: COVID-19 (MODERNA), MRNA, LNP-S, PF, 50 MCG/0.5 ML (AGES 12+ YEARS) Refusal Reason: PATIENT DECISION Patient refuses all immunization(s) in the COVID-19 group Date Documented: 12/29/24 09:18 Pneumococcal Conjugate Vaccine (PCV15/PCV20/PCV21): Refuses PCV vaccine Immunization: PNEUMOCOCCAL CONJUGATE, UNSPECIFIED FORMULATION Refusal Reason: PATIENT DECISION Patient refuses all immunization(s) in the PneumoPCV group Date Documented: 12/29/24 09:19 RSV Immunization: Respiratory Syncytial Virus (RSV) Vaccine: Refused Pfizer (Abrysvo, RSVpreF vaccine). Immunization: RSV, BIVALENT, PROTEIN SUBUNIT RSVPREF, DILUENT RECONSTITUTED, 0.5 ML, PF Refusal Reason: PATIENT DECISION Patient refuses all immunization(s) in the RSV group Date Documented: 12/29/24 09:19 /silke/ SENIA HUNTLEY LPN LPN Signed: 12/29/2024 09:20 SENIA HUNTLEY [facility] Dec 29, 2024 08:28 AM H & P NOTE: LOCAL TITLE: [facility]/PHYSICIAN/PA STANDARD TITLE: H & P NOTE DATE OF NOTE: DEC 29, 2024@08:28 ENTRY DATE: DEC 29, 2024@08:28:57 AUTHOR: MEHDI RIZO COSIGNER: URGENCY: STATUS: COMPLETED ISABELLNATASHA HUNT is a 64 year old DECLINED TO ANSWER MALE who is being seen today in primary care to establish care. = CARE TEAM = Community Primary Care Provider: Shy Primary Care Provider [address] [place] [address] [place] [id number], [place] Specialists: Community Specialists: [facility] Oncology Services Marissa Witt MD Hereditary hemochromatosis Vascular Surgeon/Pavrin Orr Cardiology/[facility] = HISTORY = PERIOD OF SERVICE - [employer] CONNECTED % - 10 [employer] [phone]: deployed [place] = HISTORY OF PRESENT ILLNESS = Patient presents today to establish care with PCP. 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 Overall is feeling well. Has stable chronic medical conditions and wants [place] to take over medical care & prescriptions. Is due for colonoscopy, goes q 5 yrs for polyp surveillance. Had consult with GI recently Dr Diaz/ [facility], US was ordered and gallbladder polyp was found; consulted with Surgeon and they elected to monitor. COPD: reports stable. Smoking about 5-8 cig/d, would like to quit. Has cut back from 1ppd. Sees Pulm at [facility]. Uses Combivent rescue maybe 1-2x/mo. smokes too; she also wants to quit PAD:reports stable. b/l leg pain improved since revision of fem/pop bypass. predictable leg pain after walking about 1 block; no change. Follows Vascular, Dr Orr, continues asa 81 mg and clopidrogel 75 mg/d Hemochromatosis/hx porphyria: reports stable. Initally consulted w career center director at [facility]; PCP took over monitoring CBC and ferritin levels. No recent labs to review. Longstanding low back pain: degen arthritis; Pain rad to R buttock; manages with OTC ibuprofen, takes 800 mg PRN (which is a few x per mo). Had been referred to [facility] and sports rehab for PT, & injections. = RELEVANT PAST MEDICAL HISTORY = Active problems - Computerized Problem List is the source for the followin. Hemochromatosis Hematol note 2020. 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 diagnosed 2015 , Dr Witt 2. Peripheral arterial occlusive disease 3. Hypercholesterolemia 4. Essential hypertension 5. Erectile dysfunction 6. Benign prostatic hyperplasia 7. Tobacco dependence 8. Obesity 9. Acute bronchitis due to other specified organisms 10. Porphyria cutanea tarda 11. Chronic obstructive pulmonary disease 12. Pilonidal cyst (L05.91)- History of repaired pilonidal cyst 13. Lumbar radiculopathy Lumbar radiculopathy, right 14. History of colonoscopy [facility], Dr. Ramos- 2019- Needs Colonoscopy ordered 15. Arthritis Lower Back, Neck, Fingers, Hands 16. Iron overload = PAST SURGICAL HISTORY = Fem-Pop bypass 05/2022 Revision Fem-Pop bypass 10/2023 Dr Orr-Vascular Distant esoph rupture (esophagogastricduodoscopy) Lipoma excision L arm, age 8 Repair Pilonidal cyst = FAMILY HISTORY = Mother:D 83 Alzheimers Father: D 72 CVD/DM2 Siblings: Sister: w/ ovarian CA, age 69 (dxd 68) Son:1, lives [place] No other hx premature CA or premature CAD = SOCIAL HISTORY = Background: born and raised in [place] Marital Status: , Ros[place] Children: 1 son , lives in [place], healthy Lives with: Employment Status: retired [employer] 2023 Alcohol Use: Tobacco Use: 25 yrs, now 5-8/day Pack Year: 25+ Drug Use: none Mobility: Full Exercise: some walking Hobbies: reading, model trains/ house projects = ALLERGIES = DOXYCYCLINE = MEDICATIONS = Active and Recently Outpatient Medications (excluding Supplies): Active Outpatient Medications Status 1) ALBUTEROL 100/IPRATRO 20MCG 120D PO INHL INHALE 1 PUFF BY HOLD MOUTH FOUR TIMES DAILY NEEDED Indication: FOR BRONCHOSPASM 2) AMLODIPINE BESYLATE 10MG TAB TAKE ONE TABLET BY MOUTH ONCE HOLD DAILY FOR BLOOD PRESSURE/HEART, DO NOT TAKE WITH GRAPEFRUIT JUICE Indication: FOR HIGH BLOOD PRESSURE 3) ASPIRIN 81MG EC TAB TAKE ONE TABLET BY MOUTH ONCE DAILY TO HOLD PREVENT STROKE/HEART ATTACK Indication: FOR BLOOD CLOT PREVENTION FOLLOWING PCI 4) CLOPIDOGREL BISULFATE 75MG TAB TAKE ONE TABLET BY MOUTH ONCE HOLD DAILY Indication: FOR BLOOD CLOT PREVENTION FOLLOWING PCI 5) FLUTICAS 250/SALMETEROL 50 INHL DISK 60 INHALE 1 PUFF BY HOLD MOUTH TWICE DAILY - RINSE MOUTH AFTER USE Indication: FOR BRONCHOSPASM PREVENTION WITH COPD 6) IBUPROFEN 800MG TAB TAKE ONE TABLET BY MOUTH THREE TIMES HOLD DAILY WITH MEALS TAKE WITH FOOD Indication: FOR PAIN 7) NICOTINE 10MG/ML SOLN NASAL SPRAY INSTILL 1 SPRAY INTO EACH HOLD NOSTRIL SIX TIMES A DAY NEEDED Indication: FOR SMOKING CESSATION 8) PANTOPRAZOLE NA 40MG EC TAB TAKE ONE TABLET BY MOUTH EVERY HOLD MORNING 30 MINUTES BEFORE BREAKFAST Indication: FOR EXCESSIVE PRODUCTION OF STOMACH ACID 9) ROSUVASTATIN CA 40MG TAB TAKE ONE-HALF TABLET BY MOUTH ONCE HOLD DAILY FOR CHOLESTEROL Indication: FOR HIGH CHOLESTEROL 10) SILDENAFIL CITRATE 100MG TAB TAKE ONE TABLET BY MOUTH HOLD NEEDED TAKE 1 HOUR PRIOR TO SEXUAL ACTIVITY Indication: FOR ERECTILE DYSFUNCTION = REVIEW OF SYMPTOMS = POSITIVE FOR: stable SOB, stable b/l lower leg pain, chronic low back pain NEGATIVE FOR: CONSTITUTION: no weight loss/gain, fatigue, fevers, night sweats HEENT: hearing loss, swallowing difficulties CV: no chest pain, palpitations, orthopnea RESP: no cough, shortness of breath, wheezin GI: no abdominal pain, N/V/D, constipation, blood in stool, normal appetite : no urinary frequency, nocturia x 1 per night, hematuria MUSC: no joint swelling, muscle aches NEURO: no headaches, dizziness, memory loss, tremor, weakness PSYCH: no depression, anxiety, suicidal or homicidal thoughts SKIN: no rash, new skin lesions = PHYSICAL EXAM = 98 F [36.7 C] (12/29/2024 08:51) 106 (12/29/2024 08:51) 16 (12/29/2024 08:51) 142/86 (12/29/2024 10:21) 0 (12/29/2024 08:51) 70.5 in [179.1 cm] (12/29/2024 08:51) 172 lb [78.02 kg] (12/29/2024 08:51) BMI: 24.4 Exam: Gen.: Alert, no acute distress, sitting comfortably. Eyes: Noninjected. No facial swelling or asymmetry. No icterus. HEENT: Normocephalic, atraumatic. Hearing grossly intact; EACs clear. Neck: Good range of motion/No masses CV: RRR, No Murmurs. No carotid bruits. No LE Edema Respiratory: No conversational dyspnea. No audible wheezing stridor or cough. Skin: No obvious rashes. Neuro: Cranial nerves II-XII grossly intact Psych: Normal affect, cooperative. Intact judgment and insight. A&O x3. = RECENT LABS = None = ASSESSMENT AND PLAN = Hemochromatosis: reports stable. homozygous gene mutation for hemochromatosis (C282Y) Initally consulted w career center director at [facility]; PCP took over monitoring CBC and ferritin levels. Hematol rec q 6- 12mo phlebotomy. (last visit 2020 Hematol) No recent labs to review. Labs ordered. PAD: Followed by Dr Orr-Vascular q 6 mo (last 09/06/24) Revision of Left Fem-Pop bypass 10/2023 Enc routine walking/stressed importance of exercise and smoking cessation Stable. Continues asa + clopidrogel. HTN: Above goal today. Goal < 140/90. FU 1 mo for Nurse BP ck. Continue amlodipine 10 mg daily , will adjust if BP remains above goal. COPD mod- severe. Follows w/ Pulm Dr Lino[place] Stable. Uses combivent 2x/mo Switch to Advair (from Symbicort due to [facility] formulary) Meds RF Smoker: counseled on cessation. wants to quit. Goal: quit in next 6 mo. Reviewed NRT options: declines for now, had se's with chantix Would consider smoking cessation support group; hoping will quit too. Hx Colon polyps: reports due for [place] (q 5 yrs): Follows with [facility] [place], is sched for rpt colo in next month. Hx porphyria cut tarda; avoids sun. Has meds for this.Treated w phlebotomy in the past, hasnt needed. Hx Gallbladder polyp: [place] reports he consulted w/ surgery. Recommended to have rpt US GB in 6 mo. No indication for surg unless polyp enlarges No RUQ pain or sxs. Lumbar radiculopathy: stable, longstanding. Not clear if seeing [facility] now, had been referred. BPH: stable, on no meds. *NURSING: please obtain vaccine records Td/Tdap PCP Dr Huertas/[facility]. On this date of the encounter, I spent 60 minutes on some or all of the following: chart review, history, physical examination, treatment planning, education and counseling of the patient/family/healthcare social worker, placing orders, communicating with other health care providers and documentation in the electronic health record. = HEALTH MAINTENANCE = Colonoscopy : pending January 2025 [facility] Tetanus: due ? will try to find records Pneumonia Vacccine: Flu Vaccine: due yearly Covid Vaccine: due yearly = FOLLOW UP = VISIT TYPE: 1 mo RN visit for BP check (may need med adjust't) 6 m PCP FU: Goal smoking cessation Upcoming Appointments: 12/29/2024 09:00 [facility] PACT 1 PA Toxic Exposure Screening Follow-Up: Exposure Concern(s): 12/29/2024 Agent Franklin - Toxic Exposure Concern Other Environmental Concerns - Toxic Exposure Concern Fuel Exposure - Toxic Exposure Concern diesel fuel exhaust Follow-up Question(s): 12/29/2024 [place] Healthcare Enrollment Questions - Toxic Exposure Concern /caregiver has no health or medical questions related to their self-reported environmental exposure (SARAH). The following connections were provided to the [place]/caregiver: Environmental Health Registry Hepatitis B Serology/Immunization: see orders Hepatitis C Testing: Patient has given verbal consent for HCV antibody testing. An HCV lab test has been ordered - see orders tab. HIV Screening: Patient has given verbal consent for HIV antibody testing, and the risks, benefits, and alternatives to HIV testing have been discussed. An order for an HIV Antibody test has been entered - see orders tab. Medication Reconciliation: Outpatient: Has the patient been taking medications as documented in the EMLR? YES: The patient has been taking medications as documented in the EMLR. Essential Medication List for Review used to complete this medication reconciliation. INCLUDED IN THIS LIST: Alphabetical list of active outpatient prescriptions dispensed from this [place] (local) and dispensed from another [place] or [facility] facility (remote) as well as inpatient orders (local, pending and active), local clinic medications, locally documented non-VA medications, and local prescriptions that have or been discontinued in the past 90 days. - All changes in medications, including all non-VA/Herbal/OTC medications were entered into CPRS. Changes: switch to advair per va formulary - If there were any medications the patient should no longer take, they were discontinued. - The patient/caregiver was instructed to update this list, discard old lists, and take this list to the next appointment, whether with a VA or non-VA provider. /silke/ ORTIZ RIZO PA-C PA-C Signed: 12/29/2024 20:00 Receipt Acknowledged By: 01/03/2025 10:12 /silke/ MILLIE NICOLE, MSN, RN, CNL PRIMARY CARE TEAM NURSE WILFREDO RIZO [place] [facility]
--- OUTSIDE RECORDS SUMMARY | 2025-01-09 11:45 | XMS_ITS | Patient Health Record ---
Author Organization Ashish Huertas III, MD Address [address] [place] [address] Care Team Providers Care Floatlight Powder Mixer Name Role Phone Ashish Huertas Primary Care [...] date:02/20/2024 04:43:15 AM Interpretation: Performing Lab: Notes/Report: [address] [address] Ultrasound Report Signed Patient: Sid Landeros MR#: [id number] : 1960 Acct:[id number] Age/Sex: 63 / M ADM Date: 02/15/24 Loc: HO.US Attending Dr: Jhony Orr MD Ordering Physician: Jhony Orr MD Date of Service: 02/15/24 Procedure(s): US KAI complete Accession Number(s): [id number] cc: Ashish Huertas MD; Jhony Orr MD [...] in OV> 02/17/24 1435 DD/ 0928 TD/TT: Chlorobutadiene Scrubber Operator: [place] [address] Ultrasound Report Signed Patient: Marlo Landeros MR#: [id number] : 1960 Acct:[id number] Age/Sex: 63 / M ADM Date: 02/15/24 Loc: . Attending Dr: Jhony Orr MD Ordering Physician: Jhony Orr MD Date of Service: 02/15/24 Procedure(s): US KAI complete Accession Number(s): [id number] cc: Ashish Huertas MD; Jhony Orr MD [...] in OV> 02/17/24 1435 DD/ 0928 TD/TT: Chlorobutadiene Scrubber Operator: US arterial duplex LE BI Reviewed date:02/20/2024 04:43:15 AM Interpretation: Performing Lab: Notes/Report: [address] [address] Ultrasound Report Signed Patient: Sid Landeros MR#: [id number] : 1960 Acct:[id number] Age/Sex: 63 / M ADM Date: 02/15/24 Loc: HO.US Attending Dr: Jhony Orr MD Ordering Physician: Jhony Orr MD Date of Service: 02/15/24 Procedure(s): US arterial duplex LE BI Accession Number(s): [id number] cc: Ashish Huertas MD; Jhony Orr MD [...] by Stanislav Roblero MD in OV> 02/17/24 7741 DD/ 0915 TD/TT: Chlorobutadiene Scrubber Operator: [address] [address] Ultrasound Report Signed Patient: Marlo Landeros MR#: [id number] : 1960 Acct:[id number] Age/Sex: 63 / M ADM Date: 02/15/24 Loc: HO.US Attending Dr: Jhony Orr MD Ordering Physician: Jhony Orr MD Date of Service: 02/15/24 Procedure(s): US arterial duplex LE BI Accession Number(s): [id number] cc: Ashish Huertas MD; Jhony Orr MD [...] in OV> 02/17/24 1435 DD/ 0915 TD/TT: Chlorobutadiene Scrubber Operator: Complete Blood Count Auto Di ff Reviewed date:05/15/2024 08:55:39 AM Interpretation: Performing Lab:[facility], [address] [place] [address] Notes/Report: White Blood Count 6.6 4.8-10.8 X10*3/uL [...] Panel Reviewed date:05/15/2024 08:55:39 AM Interpretation: Performing Lab:[facility], [address] [place] [address] Notes/Report: Sodium 132 135-145 mmol/L Potassium 3.8 [...] Glomerular Filt Rate > 60 NOTE: For -Micronesian individuals, multiply the result by 1.210. Chronic [...] Phosphatase 119 39-117 U/L COVID-19 ID NOW (Datas[employer]) Reviewed date:05/15/2024 08:55:39 AM Interpretation: Performing Lab:[facility], [address] [place] [address] Notes/Report: IDNOW Serial# [id number] COVID-19 Test Negative Negative COVID-19 Note See [...] with other viruses. Testing facilities within the [facility] and its territories are required to [...] by authorized laboratories. Testing performed on the [employer] ID NOW utilizing NAAT. Influenza A B2 ID NOW (Abbot t) Reviewed date:05/15/2024 08:55:39 AM Interpretation: Performing Lab:[facility], [address] [place] [address] Notes/Report: [place] Serial# [id number] Influenza A Negative Negative Influenza B2 Negative [...] date:05/15/2024 08:55:39 AM Interpretation: Performing Lab: Notes/Report: [address] [address] XRay Report Signed Patient: Sid Landeros MR#: [id number] : 1960 Acct:[id number] Age/Sex: 63 / M ADM Date: 02/28/24 Loc: .ED Attending Dr: Ordering Physician: Generic ED Physician Date of Service: 02/28/24 Procedure(s): XR chest 2V Accession Number(s): [id number] cc: Ashish Huertas MD; Generic ED Physician [...] MD in OV> 02/28/[address] DD/ 5 TD/TT: Chlorobutadiene Scrubber Operator: MAURA [address] [address] XRay Report Signed Patient: Marlo Landeros MR#: [id number] : 1960 Acct:[id number] Age/Sex: 63 / M ADM Date: 02/28/24 Loc: HO.ED Attending Dr: Ordering Physician: Generic ED Physician Date of Service: 02/28/24 Procedure(s): XR [address] 2V Accession Number(s): [id number] cc: Ashish Huertas MD; Generic ED Physician [...] MD in OV> 02/28/[address] DD/ 5 TD/TT: Chlorobutadiene Scrubber Operator: MAURA Liver Panel Reviewed date:06/27/2024 06:04:41 AM Interpretation: Performing Lab:[address] [address] Notes/Report: Bilirubin Total 0.6 0.0-1.0 mg/dL Bilirubin Direct 0.3 0.0-0.5 mg/dL Aspartate Amino Transferase 40 5-37 U/L Alanine Aminotransferase 31 0-40 U/L Total Protein 7.8 6.5-8.0 g/dL Albumin Level 4.4 3.5-5.0 g/dL Alkaline Phosphatase 110 39-117 U/L Lipid Panel Reviewed date:06/27/2024 06:04:41 AM Interpretation: Performing Lab:[address] [address] Notes/Report: Triglycerides 39 <150 mg/dL Desirable Triglyceride: [...] date:09/24/2024 07:13:25 AM Interpretation: Performing Lab: Notes/Report: [address] [address] Ultrasound Report Signed Patient: Sid Landeros MR#: [id number] : 1960 Acct:[id number] Age/Sex: 63 / M ADM Date: 08/22/24 Loc: .US Attending Dr: Jhony Orr MD Ordering Physician: Jhony Orr MD Date of Service: 08/22/24 Procedure(s): US arterial duplex BI w/ KAI Accession Number(s): [id number] cc: Ashish Huertas MD; Jhony Orr MD [...] 09/23/2024 06:[address] [facility] Dictated By: Twyla Beaver Signed By: <Electronically signed by Twyla Beaver in OV> 09/23/24 1831 DD/ 1133 TD/TT: 08/22/24 1210 Chlorobutadiene Scrubber Operator: [place] [address] Ultrasound Report Signed Patient: Marlo Landeros MR#: [id number] : 1960 Acct:[id number] Age/Sex: 63 / M ADM Date: 08/22/24 Loc: .US Attending Dr: Jhony Orr MD Ordering Physician: Jhony Orr MD Date of Service: 08/22/24 Procedure(s): US arterial duplex BI w/ KAI Accession Number(s): [id number] cc: Ashish Huertas MD; Jhony Orr MD [...] 09/23/2024 06:[address] [facility] Dictated By: Twyla Beaver Signed By: <Electronically signed by Twyla Beaver in OV> 09/23/24 1831 DD/ 1133 TD/TT: 08/22/24 1210 Chlorobutadiene Scrubber Operator: US abdomen complete (Not yet reviewed by provider) Interpretation: Performing Lab: Notes/Report: [address] [address] Ultrasound Report Signed Patient: Sid Landeros MR#: [id number] : 1960 Acct:[id number] Age/Sex: 64 / M ADM Date: 11/29/24 Loc: HO.US Attending Dr: Wen Diaz MD Ordering Physician: Wen Diaz MD Date of Service: 11/29/24 Procedure(s): US abdomen complete Accession Number(s): [id number] cc: Ashish Huertas MD; Wen Diaz MD [...] by: Naman Roth MD 11/30/2024 07:[address] [facility] Dictated By: Naman Roth MD Signed By: <Electronically signed by Naman Roth MD in OV> 11/30/24 0739 DD/ 1033 TD/TT: 11/29/24 1054 Chlorobutadiene Scrubber Operator: [address] [address] Ultrasound Report Signed Patient: Marlo Landeros MR#: [id number] : 1960 Acct:[id number] Age/Sex: 64 / M ADM Date: 11/29/24 Loc: HO.US Attending Dr: Wen Diaz MD Ordering Physician: Wen Diaz MD Date of Service: 11/29/24 Procedure(s): US abdomen complete Accession Number(s): [id number] cc: Ashish Huertas MD; Wen Diaz MD [...] 11/30/24 0739 DD/ 1033 TD/TT: 11/29/24 1054 Chlorobutadiene Scrubber Operator: [facility] Reason For Referral No Information Medications Medication SIG (Take, Route, Frequency, Duration) Notes Start Date End Date Status Rosuvastatin Calcium 20 MG 1 tablet Oral ly Once a day Active Varenicline Tartrate (Starter) 0.5 MG X 11 & 1 MG X 42 as directed Orally as directed 01/30/2023 Active Mupirocin 2 % 1 application Gas Tester ally Twice a day 11/20/2023 Active Pantoprazole [...] Status W/U Status Risk Notes Problem Hyperlipidemia (33444904) Hyperlipidemia (E78.5) Active confirmed Comprehensive blood work with a fasting lipid profile has been ordered. Problem 361305599 Overweight (E66.3) Active confirmed He is very slightly overweight.His BMI is 25.1. We discussed his diet and nutrition we made a plan to lose weight at a rate of one half of a pound per week. Problem Hypertension (12176583) Hypertension (I10) Active confirmed His blood pressure has been 142/70. No change in his regimen was made. I encouraged him to pursue aggressive sodium restriction. He was given an appointment to come to the office and recheck his blood pressure. Problem 08205336 Porphyria cutanea tarda (E80.1) Active confirmed The diagnosis of porphyria was made by a yard crane operator at [facility]. He affirms that if he goes into direct sunlight. He will experience blisters and skin lesions. He is well versed in how to prevent this and has medications for his skin. Problem 796814840 Acute bronchitis due to other specified organisms (J20.8) Active confirmed He is producing green phlegm and says he is wheezing. The inhaler is helping. He was given a Zithromax and prednisone with a follow-up visit. Problem Benign prostatic hyperplasia (583589152) BPH (benign prostatic hyperplasia) (N40.0) Active confirmed He rises from sleep usually once a night occasionally twice. We have discussed lifestyle modifications he can make to reduce nocturia. Problem 03429666 Tobacco dependence (F17.200) Active confirmed He continues to smoke a package of cigarettes every day. We discussed the health consequences of this. His COPD has been stable and inactive recently. I made him aware of the smoking cessation programs and the local hospitals and this community. Problem COPD - Chronic obstructive pulmonary disease (26470640) COPD (chronic obstructive pulmonary disease) (J44.9) Active [...] lung cancer, COPD, oxygen dependence, etc. Problem 72564706 Pilonidal cyst (L05.91) Active confirmed He had an excision and repair of this cyst years ago. It is healed and no longer bothers him. Problem 511712728 Peripheral arterial disease (I73.9) Active confirmed His claudication is stable at 1 block. He recently saw the vascular surgeon. He recently underwent a revision of his left femoral-poplite al bypass graft. The wound is now healed. He experiences some claudication in his right leg and is able to walk one block without stopping to rest. Problem 468019050 Lumbar radiculopathy, right (M54.16) Active confirmed He continues to have pain that comes from his lower lumbar spine and right paravertebral muscles that radiates into his right buttock. X-rays have shown degenerative disease. The pain is aggravated with walking more than 10 feet and lifting more than 10 pounds. He has been referred to [facility] rehabilitation medicine for physical therapy injections imaging and evaluation for surgery. Problem 75336327 Acute diffuse otitis externa of both ears [...] Provider Diagnosis Ashish Huertas III, MD [address] [place] [address] [place] [address] 01/20/2024 Ashish Huertas Tobacco dependence F17.200 ; Peripheral arterial disease I73.9 ; Hypertension I10 ; Lumbar radiculopathy, right M54.16 ; BPH (benign prostatic hyperplasia) N40.0 and Porphyria cutanea tarda E80.1 Ashish Huertas III, MD [address] [place] [address] [place] [address] 02/09/2024 Ashish Huertas Tobacco dependence F17.200 ; Otitis of both ears H66.93 ; Peripheral arterial disease I73.9 ; BPH (benign prostatic hyperplasia) N40.0 ; Hypertension I10 and COPD (chronic obstructive pulmonary disease) J44.9 Ashish Huertas III, MD [address] [place] [address] [place] [address] 02/19/2024 Ashish Huertas Tobacco dependence F17.200 ; COPD (chronic obstructive pulmonary disease) J44.9 ; Peripheral arterial disease I73.9 ; Lumbar radiculopathy, right M54.16 ; Acute diffuse otitis externa of both ears H60.313 ; Porphyria cutanea tarda E80.1 ; Hypertension I10 and Overweight E66.3 Ashish Huertas III, MD [address] [place] [address] [place] [address] 04/29/2024 Ashish Huertas Tobacco dependence F17.200 ; Insect bite without infection W57.XXXA ; Hypertension I10 ; COPD (chronic obstructive pulmonary disease) J44.9 ; BPH (benign prostatic hyperplasia) N40.0 ; Peripheral arterial disease I73.9 ; Acute diffuse otitis externa of both ears H60.313 and Overweight E66.3 Ashish Huertas III, MD [address] [place] [address] [place] [address] 05/23/2024 Ashish Huertas Tobacco dependence F17.200 ; BPH (benign prostatic hyperplasia) N40.0 ; Overweight E66.3 ; COPD (chronic obstructive pulmonary disease) J44.9 ; Hypertension I10 ; Peripheral arterial disease I73.9 ; Porphyria cutanea tarda E80.1 and Acute diffuse otitis externa of both ears H60.313 Ashish Huertas III, MD [address] [place] [address] [place] [address] 08/02/2024 Ashish Huertas Infection of pelvis M86.9 ; Peripheral arterial disease I73.9 ; COPD (chronic obstructive pulmonary disease) J44.9 ; Lumbar radiculopathy, right M54.16 ; BPH (benign prostatic hyperplasia) N40.0 and Hypertension I10 Ashish Huertas III, MD [address] [place] [address] [place] [address] 08/15/2024 Ashish Huertas Infection of pelvis M86.9 ; Hypertension I10 ; BPH (benign prostatic hyperplasia) N40.0 ; COPD (chronic obstructive pulmonary disease) J44.9 ; Peripheral arterial disease I73.9 and Lumbar radiculopathy, right M54.16 Ashish Huertas III, MD [address] [place] [address] [place] [address] 10/28/2024 Ashish Huertas Hypertension I10 ; C OPD (chronic obstructive pulmonary disease) J44.9 ; BPH (benign prostatic hyperplasia) N40.0 ; Peripheral arterial disease I73.9 ; Tobacco dependence F17.200 ; Porphyria cutanea tarda E80.1 ; Lumbar radiculopathy, right M54.16 and Overweight E66.3 Ashish Huertas III, MD [address] [place] [address] [place] [address] 11/15/2024 Ashish Huertas Acute bronchitis due to other specified organisms J20.8 ; COPD (chronic obstructive pulmonary disease) J44.9 ; Tobacco dependence F17.200 ; Lumbar radiculopathy, right M54.16 ; Porphyria cutanea tarda E80.1 ; Hyperlipidemia E78.5 ; Hypertension I10 and Peripheral arterial disease I73.9 Ashish Huertas III, MD [address] [place] [address] [place] [address] 02/09/2024 Ashish Huertas III, MD [address] [place] [address] [place] [address] 02/19/2024 Ashish Huertas III, MD [address] [place] [address] [place] [address] 02/24/2024 Ashish Huertas III, MD [address] [place] [address] [place] [address] 02/26/2024 Ashish Huertas III, MD [address] [place] [address] [place] [address] 02/26/2024 Ashish Huertas III, MD [address] [place] [address] [place] [address] 05/03/2024 Ashish Huertas Tobacco dependence F17.200 Ashish Huertas III, MD [address] [place] [address] [place] [address] 05/19/2024 Ashish Huertas III, MD [address] [place] [address] [place] [address] 07/01/2024 Ashish Huertas III, MD [address] [place] [address] [place] [address] 10/04/2024 Ashish Huertas Infection of pelvis M86.9 Ashish Huertas III, MD [address] [place] [address] [place] [address] 11/21/2024 Ashish Huertas III, MD [address] [place] [address] [place] [address] 11/21/2024 Ashish Huertas III, MD [address] [place] [address] [place] [address] 12/19/2024 Ashish Huertas Assessments Encounter Date Diagnosis (ICD [...] 10 pounds. He has been referred to [facility] for physical therapy injections imaging [...] 10 pounds. He has been referred to [facility] [...] 10 pounds. He has been referred to [facility] spine and sports rehabilitation medicine for [...] diagnosis of porphyria was made by a yard crane operator at [facility]. He affirms that if he goes into direct sunlight. He will experience blisters and skin lesions. He is well versed in how to prevent this and has medications for his skin. 01/20/2024 Porphyria cutanea tarda (ICD-10 - E80.1) The diagnosis of porphyria was made by a yard crane operator at [facility]. He affirms that if he goes [...] diagnosis of porphyria was made by a yard crane operator at [facility]. He affirms that if he goes [...] 10 pounds. He has been referred to [facility] spine and sports rehabilitation medicine for physical therapy injections imaging and evaluation for surgery. 10/28/2024 Porphyria cutanea tarda (ICD-10 - E80.1) The diagnosis of porphyria was made by a yard crane operator at [facility]. He affirms that if he goes [...] diagnosis of porphyria was made by a yard crane operator at [facility]. He affirms that if he goes [...] 10 pounds. He has been referred to [facility] spine and sports rehabilitation medicine for [...] Details Provider Name:Ashish Huertas, 01/23/2025 02:30:00 PM, [address] [place] [address] [address], [place], [address], Provider Name:Ashish Huertas, 10/31/2025 02:00:00 PM, [address] [place] [address] [address], [place], [address], Insurance Providers Payer Name Payer Address Payer Phone Subscriber Number Group Number Insured Name Patient Relationship to Insured Coverage Start Date Coverage End Date [facility] [address] [place], [place] [id number] Sid Landeros Self - patient is the insured [address] [place] [address] [id number] Sid Landeros Self - patient is the insured Medical (General) History Medical History History ICD Code COPD (chronic obstructive pulmonary dise ase) J44.9 Hypertension I10 Erectile dysfunction Peripheral vascular disease Environmental allergies History of repaired pilonidal cyst Excised lipoma, left triceps, age 8 Porphyria cutanea tarda, Dr. Brady, [facility] Tobacco dependence Covid19 infection 2021 [...] History Surgery Date(Month/Year) Femoral -popliteal arterial bypass @[facility] [place] 05/2022 Esophagogastricduodoscopy Excision of lipoma, left triceps, age 8 Repair of pilonidal cyst Fracture of 2 fingers Colonoscopy, [facility], Dr. Ramos Arterial Bipass 05/2022 No history Hospitalization History Reason Date(Month/Year) No history
--- OUTSIDE RECORDS SUMMARY | 2025-01-09 11:45 | XMS_ITS ---
Author Organization Ashish Huertas III, MD Address [address] [place] [address] Care Team Providers Care Customer Support Manager Name Role Phone Ashish Huertas Primary Care Provider REASON FOR VISIT told patient to call Social History Sex Assigned At : Social History Observation Description Sex Assigned At Male Encounters Encounter Location Date Provider Diagnosis Ashish Huertas III, MD [address] [place] [address] [place] [address] 11/21/2024 Ashish Huertas Plan Of Treatment Next Appt Details Provider Name:Ashish Huertas, 01/23/2025 02:30:00 PM, [address] [place] [address] [place], [address], Provider Name:Ashish Huertas, 10/31/2025 02:00:00 PM, [address] [place] [address] [place], [address], Progress Notes * Sid LANDEROS MDOB: 2 (64 yo M)Acc No.[id number]:11/21/2024 Patient:?Sid LANDEROS :1960???Age:64 Y???Sex:Male Address:[address] [place], [address] * true * Date:? Generated for Printi ng/Faxing/eTransmitting on:?01/09/2025 11:45 AM EDT
--- OUTSIDE RECORDS SUMMARY | 2025-01-09 11:45 | XMS_ITS ---
Author Organization Ashish Huertas III, MD Address [address] [place] [address] [place] [address] Care Team Providers Care Recessing Machine Operator Name Role Phone Ashish Huertas Primary Care Provider Medications Medication SIG (Take, Route, Frequency, Duration) Notes Start Date End Date Status Amoxicillin-Pot Clavulanate 875-125 MG 1 tablet Orally every 12 hrs for 7 days 11/21/2024 11/28/2024 Active Social History Sex Assigned At : Social History Observation Description Sex Assigned At Male Encounters Encounter Location Date Provider Diagnosis Ashish Huertas III, MD [address] [place] [address] [place] [address] 11/21/2024 Ashish Huertas Plan Of Treatment Medication Medication Name Sig Start Date Stop Date Notes Amoxicillin-Pot Clavulanate 875-125 MG 1 tablet Orally every 12 hrs for 7 days 11/21/2024 11/28/2024 Next Appt Details Provider Name:Ashish Huertas, 01/23/2025 02:30:00 PM, [address] [place] [address] [place], [address], Provider Name:Ashish Huertas, 10/31/2025 02:00:00 PM, [address] [place] [address] [place], [address], Progress Notes * Sid LANDEROS MDOB: 2 (64 yo M)Acc No.[id number]:11/21/2024 Patient:?Sid LANDEROS :1960???Age:64 Y???Sex:Male Address: [address], [place], [address] * Refills? Start Amoxicillin-Pot Clavulanate Tablet, 875-125 MG, Orally, 14 Tablet, 1 tablet, every 12 hrs, 7 days, Refills=0 * true * Date:? Generated for Vanessa rodriguez/Namita/Reyitting on:?01/09/2025 11:45 AM EDT
--- OUTSIDE RECORDS SUMMARY | 2025-01-09 11:45 | XMS_ITS ---
Author Organization Ashish Huertas III, MD Address [address] [place] [address] Care Team Providers Care Filer Helper Name Role Phone Ashish Huertas Primary Care Provider REASON FOR VISIT Message Social History Sex Assigned At : Social History Observation Description Sex Assigned At Male Encounters Encounter Location Date Provider Diagnosis Ashish Huertas III, MD [address] [place] [address] [place] [address] 12/19/2024 Ashish Huertas Plan Of Treatment Next Appt Details Provider Name:Ashish Huertas, 01/23/2025 02:30:00 PM, [address] [place] [address] [place], [address], Provider Name:Ashish Huertas, 10/31/2025 02:00:00 PM, [address] [place] [address] [place], [address], Progress Notes * Sid LANDEROS MDOB: 2 (64 yo M)Acc No.[id number]:12/19/2024 Patient:?Sid LANDEROS :1960???Age:64 Y???Sex:Male Address:[address] [place], [address] * true * Date:? Generated for Printi michael/Namita/eTransmitting on:?01/09/2025 11:45 AM EDT
== END 2025-01-09 10:53 | disposition home or self-care (01) ==
LOC: HO.HCS 10:19
PROVIDERS: PCP Internal Medicine Medical Oncology; Visit Provider Internal Medicine
DX: I25.10 Atherosclerotic heart disease of native coronary artery without angina pectoris (principal); I73.9 Peripheral vascular disease, unspecified; F17.210 Nicotine dependence, cigarettes, uncomplicated; E78.5 Hyperlipidemia, unspecified
CPT/HCPCS: 93010; 99214

== ENCOUNTER → 2025-01-09 10:17 | Outpatient (BNVA) | payer BC, OTHER, SELFPAY | PROVIDERS: PCP Internal Medicine Medical Oncology; Visit Provider Internal Medicine | DX: I25.10 Atherosclerotic heart disease of native coronary artery without angina pectoris (principal); I73.9 Peripheral vascular disease, unspecified; E78.5 Hyperlipidemia, unspecified; F17.210 Nicotine dependence, cigarettes, uncomplicated | CPT/HCPCS: 93005 ==

== ENCOUNTER 2025-01-10 11:15 | Outpatient (REF) | payer BC, OTHER, SELFPAY ==
--- OUTSIDE RECORDS SUMMARY | 2025-01-10 14:42 | XMS_ITS | Clinical Summary ---
Author Organization [facility] Address [address] [place] [address] Care Team Providers Care Coupon Manifest Clerk Name Role Phone Goldie Watkins MD Primary [...] age to complete this topic Care Teams Coupon Manifest Clerk Relationship Specialty Start Date End Date Goldie Watkins MD [address] [facility] , [address] [facility] D/B/A: [facility] [place] [id number] PCP - General Internal Medicine 06/08/17
--- OUTSIDE RECORDS SUMMARY | 2025-01-10 14:42 | XMS_ITS | Patient Health Record ---
Author Organization Ashish Huertas III, MD Address [address] [place] [address] Care Team Providers Care Operations Advisor Name Role Phone Ashish Huertas Primary Care [...] 04:43:15 AM Interpretation: Performing Lab: Notes/Report: [address] [address] Ultrasound Report Signed Patient: Sid Landeros MR#: [id number] : 1960 Acct:[id number] Age/Sex: 63 / M ADM Date: 02/15/24 Loc: HO.US Attending Dr: Jhony Orr MD Ordering Physician: Jhony Orr MD Date of Service: 02/15/24 Procedure(s): US KAI complete Accession Number(s): [id number] cc: Ashish Huertas MD; Jhony Orr MD [...] in OV> 02/17/24 1435 DD/ 0928 TD/TT: Drain Layer: [place] [address] Ultrasound Report Signed Patient: Marlo Landeros MR#: [id number] : 1960 Acct:[id number] Age/Sex: 63 / M ADM Date: 02/15/24 Loc: . Attending Dr: Jhony Orr MD Ordering Physician: Jhony Orr MD Date of Service: 02/15/24 Procedure(s): US KAI complete Accession Number(s): [id number] cc: Ashish Huertas MD; Jhony Orr MD [...] in OV> 02/17/24 1435 DD/ 0928 TD/TT: Drain Layer: US arterial duplex LE BI Reviewed date:02/20/2024 04:43:15 AM Interpretation: Performing Lab: Notes/Report: [address] [address] Ultrasound Report Signed Patient: Sid Landeros MR#: [id number] : 1960 Acct:[id number] Age/Sex: 63 / M ADM Date: 02/15/24 Loc: HO.US Attending Dr: Jhony Orr MD Ordering Physician: Jhony Orr MD Date of Service: 02/15/24 Procedure(s): US arterial duplex LE BI Accession Number(s): [id number] cc: Ashish Huertas MD; Jhony Orr MD [...] by Stanislav Roblero MD in OV> 02/17/24 7960 DD/ 0915 TD/TT: Drain Layer: [address] [address] Ultrasound Report Signed Patient: Marlo Landeros MR#: [id number] : 1960 Acct:[id number] Age/Sex: 63 / M ADM Date: 02/15/24 Loc: HO.US Attending Dr: Jhony Orr MD Ordering Physician: Jhony Orr MD Date of Service: 02/15/24 Procedure(s): US arterial duplex LE BI Accession Number(s): [id number] cc: Ashish Huertas MD; Jhony Orr MD [...] in OV> 02/17/24 1435 DD/ 0915 TD/TT: Drain Layer: Complete Blood Count Auto Di ff Reviewed date:05/15/2024 08:55:39 AM Interpretation: Performing Lab:[facility], [address] [place] [address] Notes/Report: White Blood Count 6.6 4.8-10.8 X10*3/uL [...] Panel Reviewed date:05/15/2024 08:55:39 AM Interpretation: Performing Lab:[facility], [address] [place] [address] Notes/Report: Sodium 132 135-145 mmol/L Potassium 3.8 [...] Glomerular Filt Rate > 60 NOTE: For -[place] individuals, multiply the result by 1.210. Chronic [...] Phosphatase 119 39-117 U/L COVID-19 ID NOW ([employer]) Reviewed date:05/15/2024 08:55:39 AM Interpretation: Performing Lab:[facility], [address] [place] [address] Notes/Report: IDNOW Serial# [id number] COVID-19 Test Negative Negative COVID-19 Note See [...] with other viruses. Testing facilities within the [facility] and its territories are required to report [...] by authorized laboratories. Testing performed on the [employer] ID NOW utilizing [employer]. Influenza A B2 ID NOW ([employer]) Reviewed date:05/15/2024 08:55:39 AM Interpretation: Performing Lab:[facility], [address] [place] [phone] Notes/Report: [facility] Serial# [id number] Influenza A Negative Negative Influenza B2 Negative [...] 08:55:39 AM Interpretation: Performing Lab: Notes/Report: [address] [address] XRay Report Signed Patient: Sid Landeros MR#: [id number] : 1960 Acct:[id number] Age/Sex: 63 / M ADM Date: 02/28/24 Loc: .ED Attending Dr: Ordering Physician: Generic ED Physician Date of Service: 02/28/24 Procedure(s): XR chest 2V Accession Number(s): [id number] cc: Ashish Huertas MD; Generic ED Physician [...] MD in OV> 02/28/248[address] DD/ 5 TD/TT: Drain Layer: MAURA [address] [address] XRay Report Signed Patient: Marlo Landeros MR#: [id number] : 1960 Acct:[id number] Age/Sex: 63 / M ADM Date: 02/28/24 Loc: HO.ED Attending Dr: Ordering Physician: Generic ED Physician Date of Service: 02/28/24 Procedure(s): XR g[address] st 2V Accession Number(s): [id number] cc: Ashish Huertas MD; Generic ED Physician [...] MD in OV> 02/28/248[address] DD/ 5 TD/TT: Drain Layer: MAURA Liver Panel Reviewed date:06/27/2024 06:04:41 AM Interpretation: Performing Lab:[address] [address] Notes/Report: Bilirubin Total 0.6 0.0-1.0 mg/dL Bilirubin Direct 0.3 0.0-0.5 mg/dL Aspartate Amino Transferase 40 5-37 U/L Alanine Aminotransferase 31 0-40 U/L Total Protein 7.8 6.5-8.0 g/dL Albumin Level 4.4 3.5-5.0 g/dL Alkaline Phosphatase 110 39-117 U/L Lipid Panel Reviewed date:06/27/2024 06:04:41 AM Interpretation: Performing Lab:[address] [address] Notes/Report: Triglycerides 39 <150 mg/dL Desirable Triglyceride: [...] 07:13:25 AM Interpretation: Performing Lab: Notes/Report: [address] [address] Ultrasound Report Signed Patient: Sid Landeros MR#: [id number] : 1960 Acct:[id number] Age/Sex: 63 / M ADM Date: 08/22/24 Loc: .US Attending Dr: Jhony Orr MD Ordering Physician: Jhony Orr MD Date of Service: 08/22/24 Procedure(s): US arterial duplex BI w/ KAI Accession Number(s): [id number] cc: Ashish Huertas MD; Jhony Orr MD [...] by: Sultana Beaver MD 09/23/2024 06:31 PM [facility] Dictated By: Twyla Beaver Signed By: <Electronically signed by Twyla Beaver in OV> 09/23/24 1831 DD/ 1133 TD/TT: 08/22/24 1210 Drain Layer: [place] [address] Ultrasound Report Signed Patient: Marlo Landeros MR#: [id number] : 1960 Acct:[id number] Age/Sex: 63 / M ADM Date: 08/22/24 Loc: .US Attending Dr: Jhony Orr MD Ordering Physician: Jhony Orr MD Date of Service: 08/22/24 Procedure(s): US arterial duplex BI w/ KAI Accession Number(s): [id number] cc: Ashish Huertas MD; Jhony Orr MD [...] by: Sultana Beaver MD 09/23/2024 06:31 PM [facility] Dictated By: Twyla Beaver Signed By: <Electronically signed by Twyla Beaver in OV> 09/23/24 1831 DD/ 1133 TD/TT: 08/22/24 1210 Drain Layer: US abdomen complete (Not yet reviewed by provider) Interpretation: Performing Lab: Notes/Report: [address] [address] Ultrasound Report Signed Patient: Sid Landeros MR#: [id number] : 1960 Acct:[id number] Age/Sex: 64 / M ADM Date: 11/29/24 Loc: HO.US Attending Dr: Wen Diaz MD Ordering Physician: Wen Diaz MD Date of Service: 11/29/24 Procedure(s): US abdomen complete Accession Number(s): [id number] cc: Ashish Huertas MD; Wen Diaz MD [...] are wall thickening. Electronically signed by: Naman Rtoh MD 11/30/2024 07:39 AM [facility] Dictated By: Naman Roth MD Signed By: <Electronically signed by Naman Roth MD in OV> 11/30/24 0739 DD/ 1033 TD/TT: 11/29/24 1054 Drain Layer: [address] [address] Ultrasound Report Signed Patient: Marlo Landeros MR#: [id number] : 1960 Acct:[id number] Age/Sex: 64 / M ADM Date: 11/29/24 Loc: HO.US Attending Dr: Wen Diaz MD Ordering Physician: Wen Diaz MD Date of Service: 11/29/24 Procedure(s): US abdomen complete Accession Number(s): [id number] cc: Ashish Huertas MD; Wen Diaz MD [...] 11/30/24 0739 DD/ 1033 TD/TT: 11/29/24 1054 [place] [facility] [place] No Information Medications Medication SIG (Take, Route, Frequency, Duration) Notes Start Date End Date Status Mupirocin 2 % 1 application Calender Feeder ally Twice a day 11/20/2023 Active Symbicort 160-4.5 MCG/ACT 2 puffs Inhala tion Twice a day Active Losartan Potassium 25 MG 1 tablet Orally Once a day 01/10/2025 Active amLODIPine Besylate 10 MG as directed Or ally Once a day Active Cefuroxime Axetil 500 MG 1 tablet Orally every 12 hrs for 7 days 01/10/2025 01/24/2025 Active Pantoprazole Sodium 40 MG one tablet miguel angel ly Orally Once a day 10/04/2024 Active Sildenafil Citrate 100 MG 1 tablet as ne eded Orally Once a day 10/28/2024 Active Clopidogrel Bisulfate 75 MG 1 tablet Orally Once a day 08/02/2024 Active Combivent Respimat 20-100 MCG/ACT 1 puff [...] Active Ibuprofen 800 MG Oral Act henrry Immunizations Vaccine Route Administration Date Status Comme [...] Status W/U Status Risk Notes Problem Hyperlipidemia (62678642) Hyperlipidemia (E78.5) Active confirmed Comprehensive blood work with a fasting lipid profile has been ordered. Problem 038428931 Overweight (E66.3) Active confirmed He is very slightly overweight.His BMI is 25.1. We discussed his diet and nutrition we made a plan to lose weight at a rate of one half of a pound per week. Problem Hypertension (96528400) Hypertension (I10) Active confirmed His blood pressure has been 142/70. No change in his regimen was made. I encouraged him to pursue aggressive sodium restriction. He was given an appointment to come to the office and recheck his blood pressure. Problem 47294512 Porphyria cutanea tarda (E80.1) Active confirmed The diagnosis of porphyria was made by a [employer] at [facility]. He affirms that if he goes into direct sunlight. He will experience blisters and skin lesions. He is well versed in how to prevent this and has medications for his skin. Problem 008308098 Acute bronchitis due to other specified organisms (J20.8) Active confirmed He is producing green phlegm and says he is wheezing. The inhaler is helping. He was given a Zithromax and prednisone with a follow-up visit. Problem Benign prostatic hyperplasia (197976420) BPH (benign prostatic hyperplasia) (N40.0) Active confirmed He rises from sleep usually once a night occasionally twice. We have discussed lifestyle modifications he can make to reduce nocturia. Problem 90057276 Tobacco dependence (F17.200) Active confirmed He continues to smoke a package of cigarettes every day. We discussed the health consequences of this. His COPD has been stable and inactive recently. I made him aware of the smoking cessation programs and the local hospitals and this community. Problem COPD - Chronic obstructive pulmonary disease (55283272) COPD (chronic obstructive pulmonary disease) (J44.9) Active [...] lung cancer, COPD, oxygen dependence, etc. Problem 41834682 Pilonidal cyst (L05.91) Active confirmed He had an excision and repair of this cyst years ago. It is healed and no longer bothers him. Problem 004564376 Peripheral arterial disease (I73.9) Active confirmed His claudication is stable at 1 block. He recently saw the vascular surgeon. He recently underwent a revision of his left femoral-poplite al bypass graft. The wound is now healed. He experiences some claudication in his right leg and is able to walk one block without stopping to rest. Problem 814311217 Lumbar radiculopathy, right (M54.16) Active confirmed He continues to have pain that comes from his lower lumbar spine and right paravertebral muscles that radiates into his right buttock. X-rays have shown degenerative disease. The pain is aggravated with walking more than 10 feet and lifting more than 10 pounds. [facility] rehabilitation medicine for physical therapy injections imaging and evaluation for surgery. Problem 61368370 Acute diffuse otitis externa of both ears (H60.313) Active confirmed The left ear was primarily involved. The otic canalWas uninvolved. The tympanic membrane was normal. A prescription for Bactrim was given to him. Vital Signs Heart Rate 94 /min 01/10/2025 Temperature 99.0 degrees Fahrenheit 01/10/2025 Blood pressure diastolic 77 mm Hg 01/10/2025 Height 70 in 01/10/2025 Blood pressure systolic 154 mm Hg 01/10/2025 Weight 172 lbs 01/10/2025 BMI 24.68 kg/m2 01/10/2025 Encounters Encounter Location Date Provider Diagnosis Ashish Huertas III, MD [address] [place] [address] [place] [address] 01/10/2025 Ashish Huertas Acute bronchitis due to other specified organisms J20.8 and Otitis externa of left ear, unspecified chronicity, unspecified type H60.92 Ashish Huertas III, MD [address] [place] [address] [place] [address] 01/20/2024 Ashish Huertas Tobacco dependence F17.200 ; Peripheral arterial disease I73.9 ; Hypertension I10 ; Lumbar radiculopathy, right M54.16 ; BPH (benign prostatic hyperplasia) N40.0 and Porphyria cutanea tarda E80.1 Ashish Huertas III, MD [address] [place] [address] [place] [address] 02/09/2024 Ashish Huertas Tobacco dependence F17.200 ; Otitis of both ears H66.93 ; Peripheral arterial disease I73.9 ; BPH (benign prostatic hyperplasia) N40.0 ; Hypertension I10 and COPD (chronic obstructive pulmonary disease) J44.9 Ashish Huertas III, MD [address] [place] [address] [place] [address] 02/19/2024 Ashish Huertas Tobacco dependence F17.200 ; COPD (chronic obstructive pulmonary disease) J44.9 ; Peripheral arterial disease I73.9 ; Lumbar radiculopathy, right M54.16 ; Acute diffuse otitis externa of both ears H60.313 ; Porphyria cutanea tarda E80.1 ; Hypertension I10 and Overweight E66.3 Ashish Huertas III, MD [address] [place] [address] [place] [address] 04/29/2024 Ashish Huertas Tobacco dependence F17.200 ; Insect bite without infection W57.XXXA ; Hypertension I10 ; COPD (chronic obstructive pulmonary disease) J44.9 ; BPH (benign prostatic hyperplasia) N40.0 ; Peripheral arterial disease I73.9 ; Acute diffuse otitis externa of both ears H60.313 and Overweight E66.3 Ashish Huertas III, MD [address] [place] [address] [place] [address] 05/23/2024 Ashish Huertas Tobacco dependence F17.200 ; BPH (benign prostatic hyperplasia) N40.0 ; Overweight E66.3 ; COPD (chronic obstructive pulmonary disease) J44.9 ; Hypertension I10 ; Peripheral arterial disease I73.9 ; Porphyria cutanea tarda E80.1 and Acute diffuse otitis externa of both ears H60.313 Ashish Huertas III, MD [address] [place] [address] [place] [address] 08/02/2024 Ashish Huertas Infection of pelvis M86.9 ; Peripheral arterial disease I73.9 ; COPD (chronic obstructive pulmonary disease) J44.9 ; Lumbar radiculopathy, right M54.16 ; BPH (benign prostatic hyperplasia) N40.0 and Hypertension I10 Ashish Huertas III, MD [address] [place] [address] [place] [address] 08/15/2024 Ashish Huertas Infection of pelvis M86.9 ; Hypertension I10 ; BPH (benign prostatic hyperplasia) N40.0 ; COPD (chronic obstructive pulmonary disease) J44.9 ; Peripheral arterial disease I73.9 and Lumbar radiculopathy, right M54.16 Ashihs Huertas III, MD [address] [place] [address] [place] [address] 10/28/2024 Ashish Huertas Hypertension I10 ; C OPD (chronic obstructive pulmonary disease) J44.9 ; BPH (benign prostatic hyperplasia) N40.0 ; Peripheral arterial disease I73.9 ; Tobacco dependence F17.200 ; Porphyria cutanea tarda E80.1 ; Lumbar radiculopathy, right M54.16 and Overweight E66.3 Ashish Huertas III, MD [address] [place] [address] [place] [address] 11/15/2024 Ashish Huertas Acute bronchitis due to other specified organisms J20.8 ; COPD (chronic obstructive pulmonary disease) J44.9 ; Tobacco dependence F17.200 ; Lumbar radiculopathy, right M54.16 ; Porphyria cutanea tarda E80.1 ; Hyperlipidemia E78.5 ; Hypertension I10 and Peripheral arterial disease I73.9 Ashish Huertas III, MD [address] [place] [address] [place] [address] 02/09/2024 Ashish Huertas III, MD [address] [place] [address] [place] [address] 02/19/2024 Ashish Huertas III, MD [address] [place] [address] [place] [address] 02/24/2024 Ashish Huertas III, MD [address] [place] [address] [place] [address] 02/26/2024 Ashish Huertas III, MD [address] [place] [address] [place] [address] 02/26/2024 Ashish Huertas III, MD [address] [place] [address] [place] [address] 05/03/2024 Ashish Huertas Tobacco dependence F17.200 Ashish Huertas III, MD [address] [place] [address] [place] [address] 05/19/2024 Ashish Huertas III, MD [address] [place] [address] [place] [address] 07/01/2024 Ashish Huertas III, MD [address] [place] [address] [place] [address] 10/04/2024 Ashish Huertas Infection of pelvis M86.9 Ashish Huertas III, MD [address] [place] [address] [place] [address] 11/21/2024 Ashish Huertas III, MD [address] [place] [address] [place] [address] 11/21/2024 sAhish Huertas III, MD [address] [place] [address] [place] [address] 12/19/2024 Ashish Huertas Assessments Encounter Date Diagnosis (ICD Code) Assessment Notes Treat ment Notes Treatment Clinical Notes 01/10/2025 Acute bronchitis due to other specified organisms (ICD-10 - J20.8) He is producing green phlegm and says he is wheezing. The inhaler is helping. He was given a Zithromax and prednisone with a follow-up visit. 01/20/2024 Tobacco dependence (ICD-10 - F17.200) He [...] the left side. It is now resolved 01/10/2025 Otitis externa of left ear, unspecified chronicity, unspecified type (ICD-10 - H60.92) 01/20/2024 Hypertension (ICD-10 - I10) His blood [...] 10 pounds. He has been referred to [facility] spine and sports rehabilitation medicine for [...] 10 pounds. He has been [facility] spine [facility] rehabilitation [facility] for physical therapy injections imaging and evaluation [...] 10 pounds. He has been referred [facility] spine and sports rehabilitation medicine for [...] diagnosis of porphyria was made by a [employer] at [facility]. He affirms that if he goes into direct sunlight. He will experience blisters and skin lesions. He is well versed in how to prevent this and has medications for his skin. 01/20/2024 Porphyria cutanea tarda (ICD-10 - E80.1) The diagnosis of porphyria was made by a [employer] at [facility]. He affirms that if he [...] diagnosis of porphyria was made by a [employer] at [facility]. He affirms that if he [...] 10 pounds. He has been referred to [facility] spine and sports rehabilitation medicine for physical therapy injections imaging and evaluation for surgery. 10/28/2024 Porphyria cutanea tarda (ICD-10 - E80.1) The diagnosis of porphyria was made by a [employer] at [facility]. He affirms that if he [...] diagnosis of porphyria was made by a [employer] at [facility]. He affirms that if he [...] 10 pounds. He has been referred to [facility] spine and sports rehabilitation medicine for [...] XR thoracic spine 3V 11/27/2023 Routine Culture 01/10/2025 Routine Culture 02/09/2024 Next Appt Details Provider Name:Ashish Huertas, 01/18/2025 02:45:00 PM, [address] [facility] [address], [place], [address], Provider Name:Ashish Huertas, 01/23/2025 02:30:00 PM, [address] [place] [address] [address], [place], [address], Provider Name:Ashish Huertas, 10/31/2025 02:00:00 PM, [address] [place] [address] [address], [place], [address], Insurance Providers Payer Name Payer Address Payer Phone Subscriber Number Group Number Insured Name Patient Relationship to Insured Coverage Start Date Coverage End Date [facility] [address] [place], [place] [phone] [id number] Leti Sid Self - patient is the insured [facility] [address] [place] [id number] [id number] Sid Landeros Self - patient is the insured Medical (General) History Medical History History ICD Code COPD (chronic obstructive pulmonary dise ase) J44.9 Hypertension I10 Erectile dysfunction Peripheral vascular disease Environmental allergies History of repaired pilonidal cyst Excised lipoma, left triceps, age 8 Porphyria cutanea [place], Dr. Brady, [facility] Tobacco dependence Covid19 infection 2021 [...] were 'pumping terrific'. Surgical History Surgery Date(Month/Year) No history Arterial Bipass 05/2022 Colonoscopy, , Dr. Ramos Fracture of 2 fingers Repair of pilonidal cyst Excision of lipoma, left triceps, age 8 Esophagogastricduodoscopy Femoral -popliteal arterial bypass [place] [place] 05/2022 Hospitalization History Reason Date(Month/Year) No history
--- OUTSIDE RECORDS SUMMARY | 2025-01-10 14:42 | XMS_ITS ---
Author Organization Ashish Huertas III, MD Address [address] [place] [address] [place] [address] Care Team Providers Care Doctor Of Dental Surgery Name Role Phone Ashish Huertas Primary Care Provider [phone] REASON FOR VISIT Message Social History Sex Assigned At : Social History Observation Description Sex Assigned At Male Encounters Encounter Location Date Provider Diagnosis Ashish Huertas III, MD [address] [place] [address] [place] [address] 12/19/2024 Ashish Huertas Plan Of Treatment Next Appt Details Provider Name:Ashish Huertas, 01/18/2025 02:45:00 PM, [address] [place] [address] [place], [address], Provider Name:Ashish Huertas, 01/23/2025 02:30:00 PM, [address] [place] [address] [place], [address], Provider Name:Ashish Huertas, 10/31/2025 02:00:00 PM, [address] [place] [address] [place], [address], Progress Notes * Sid LANDEROS MDOB: 2 (64 yo M)Acc No.[id number]:12/19/2024 Patient:?Sid LANDEROS :1960???Age:64 Y???Sex:Male Address:[address] [place], [address] * true * Date:? Generated for Printi ng/Faxing/eTransmitting on:?01/10/2025 02:42 PM EDT
--- OUTSIDE RECORDS SUMMARY | 2025-01-10 14:43 | XMS_ITS | Continuity of Care Document ---
Author Name [facility] Organization [facility] Care Team Providers Care Ethnoarchaeologist Name Role Phone [facility] Unavailable Unavailable Problems Combined list of problems [...] [place] Exposure to potentially hazardous substance ([facility] [id number]) Active Condition Dec 30 Entered By: GRACE [...] RIZO Comment: diagnosed 2016 , Dr Witt [facility] [place] [facility] History of colonoscopy Active Condition Dec 24, 2024 Entered By: MICHAEL BOSWELL Comment: [facility], Dr. Ramos- 2020- Needs Colonoscopy ordered [...] NEEDED RESPIR ATORY (INHAL ATION) HOLD 12/30/2025 [id number] WILFREDO WALKER 2024 3 [facility] AMLODIPINE BESYLATE 10MG TAB TAKE ONE TABLET BY MOUTH ONCE DAILY FOR BLOOD PRESSURE /HEART, DO NOT TAKE WITH GRAPEFRU IT JUICE ORAL HOLD 12/30/2025 [id number] 5 WILFREDO WALKER 2024 90 [facility] [place] [facility] [facility] ASPIRIN 81MG TAB,EC TAKE ONE TABLET BY MOUTH ONCE DAILY TO PREVENT STROKE/H EART ATTACK ORAL HOLD 12/30/2025 [id number] 5 WILFREDO WALKER 2024 120 [facility] [place] [facility] CLOPIDOGREL BISULFATE 75MG TAB TAKE ONE TABLET BY MOUTH ONCE DAILY ORAL HOLD 12/30/2025 [id number] 5 WILFREDO WALKER 2024 90 [facility] [place] [facility] FLUTICASONE 250MCG/SALM ETEROL 50MCG INHL,ORAL,D ISKUS,60 INHALE 1 PUFF BY MOUTH TWICE DAILY - RINSE MOUTH AFTER USE RESPIR ATORY (INHAL ATION) HOLD 12/30/2025 [id number] 5 WILFREDO WALKER 2024 3 [facility] [place] [facility] IBUPROFEN 800MG TAB TAKE ONE TABLET BY MOUTH THREE TIMES DAILY WITH MEALS TAKE WITH FOOD ORAL HOLD 12/30/2025 [id number] 5 WILFREDO WALKER 2024 90 [facility] NICOTINE 10MG/ML SOLN,NASAL SPRAY INSTILL 1 SPRAY INTO EACH NOSTRIL SIX TIMES A DAY NEEDED FOR SMOKING CESSATIO N NASAL HOLD 12/30/2025 [id number] 5 WILFREDO WALKER 2024 30 [facility] [place] PANTOPRAZOL E NA 40MG TAB,EC TAKE ONE TABLET BY MOUTH EVERY MORNING 30 MINUTES BEFORE BREAKFAS T ORAL HOLD 12/30/2025 [id number] 5 [facility]WILFR[facility]O PIERRE 2024 90 [facility] ROSUVASTATI N CA 40MG TAB TAKE ONE-HALF TABLET BY MOUTH ONCE DAILY FOR CHOLESTE ROL ORAL HOLD 12/30/2025 [id number] 5 KALENPANKAJ [facility] 2024 45 [facility] SILDENAFIL CITRATE 100MG TAB TAKE ONE TABLET BY MOUTH NEEDED TAKE 1 HOUR PRIOR TO SEXUAL ACTIVITY ORAL HOLD 12/30/2025 [id number] 5 KALENPANKAJ [facility] 2024 18 [facility] Allergies, Adverse Reactions, Alerts Combined list of allergies from Department of Defense and Veterans Affairs facilities. It does not include entries that were removed or entered in error. Substance Category Reaction Severity Reaction type Status Date Reported Comments Source DOXYCYCLINE Propensity to adverse reactions to drug (finding) Urticaria active 5 [facility] Immunizations Combined list of available immunizations from the Department of Defense and Veterans Affairs facilities. Immunization Series Date Given Administered By Site Reaction Lot Number CVX Code Drug Analytical Strategist Status Comments Source COVID-19 (MODERNA), MRNA, LNP-S, PF, 100 MCG/0.5ML DOSE OR 50 MCG/0.25ML DOSE 2 2020 207 complet ed HISTORICA L INFORMATI ON - FROM OTHER REGISTRY, COVID 19 Moderna Mfr: MODERNA [employer] [facility] COVID-19 (MODERNA), MRNA, LNP-S, PF, 100 [...] Disposition Source [facility] [facility] Outpatient Encounter [id number] 12/19 [facility] [place] Outpatient Encounter [id number] 12/24 [facility] [place] [facility] [place] [facility] OFFICE O/P NEW [place] 60 MIN [id number] Diagnos is: ICD-10- CM I73.9 Periphe ral vascula r disease , unspeci fied HIGUERA-VEC JAG,EDYTA NIKI PIERRE 12/29 [facility] [place] [facility] [place] [facility] Outpatient Encounter [id number] 01/03 [facility] [place] [facility] [place] [facility] Outpatient Encounter [id number] 01/04 [facility] [place] [facility] [place] [facility] Outpatient Encounter [id number] ANAHY HUNTLEY 01/09 [facility] [place] Social History Combined list of available smoking, tobacco, and other social history from Department of Defense and Veterans Affairs facilities. Social History Type Response Date Comment Sourc e Tobacco smoking status NHIS VA-TOBACCO USE EVERY DAY CIGARETTES 12/24/2024 [facility] History of tobacco use HI-TOBACCO NEVER USED OTHER TYPE 12/24/2024 [facility] Plan of Care List of future care activities from Department of Veterans Affairs facilities. Additional future care activities may be listed in the Assessment and Plan section. Date/Time Care Activity Care Activity Detail Facili ty 01/31/2025 AMBULATORY - MEDICINE AMBULATORY - MEDICI NE [facility] Advance Directives List of completed, amended, or rescinded Advance Directives on record at Department of Veterans Affairs facilities. An actual copy of the Directive is not included. Date Advance Directive Provider Source 12/29/2024 ADVANCE DIRECTIVE SENIA HUNTLEY [facility]
--- OUTSIDE RECORDS SUMMARY | 2025-01-10 14:43 | XMS_ITS ---
Author Organization Ashish Huertas III, MD Address [address] [place] [address] [place] [address] Care Team Providers Care Client Services Director Name Role Phone Ashish Huertas Primary Care Provider [phone] Medications Medication SIG (Take, Route, Frequency, Duration) Notes Start Date End Date Status Amoxicillin-Pot Clavulanate 875-125 MG 1 tablet Orally every 12 hrs for 7 days 11/21/2024 11/28/2024 Active Social History Sex Assigned At : Social History Observation Description Sex Assigned At Male Encounters Encounter Location Date Provider Diagnosis Ashish Huertas III, MD [address] [place] [address] [place] [address] 11/21/2024 Ashish Huertas Plan Of Treatment Medication Medication Name Sig Start Date Stop Date Notes Amoxicillin-Pot Clavulanate 875-125 MG 1 tablet Orally every 12 hrs for 7 days 11/21/2024 11/28/2024 Next Appt Details Provider Name:Ashish Huertas, 01/18/2025 02:45:00 PM, [address] [place] [address] [place], [address], Provider Name:Ashish Huertas, 01/23/2025 02:30:00 PM, [address] [place] [address] [place], [address], Provider Name:Ashish Huertas, 10/31/2025 02:00:00 PM, [address] [place] [address] [place], [address], Progress Notes * Sid LANDEROS MDOB: 2 (64 yo M)Acc No.[id number]:11/21/2024 Patient:?Sid LANDEROS :1960???Age:64 Y???Sex:Male Address: [address] , [place], [address] * Refills? Start Amoxicillin-Pot Clavulanate Tablet, 875-125 MG, Orally, 14 Tablet, 1 tablet, every 12 hrs, 7 days, Refills=0 * true * Date:? Generated for Vanessa rodriguez/Namita/eTransmitting on:?01/10/2025 02:42 PM EDT
--- OUTSIDE RECORDS SUMMARY | 2025-01-10 14:43 | XMS_ITS ---
Author Organization Ashish Huertas III, MD Address [address] [facility] [place] [address] Care Team Providers Care Volunteer Coordinator Name Role Phone Ashish Huertas Primary Care Provider Allergies Allergen (clinical drug ingredient) Drug/Non Drug Allergy documented on EMR Reaction Allergy Type Onset Date Status doxycycline Doxycycline Unknown Drug Allergy Act henrry REASON FOR VISIT Bilateral ear pain x 1 week Medications Medication SIG (Take, Route, Frequency, Duration) [...] Act henrry Mupirocin 2 % 1 application Mixer Tender ally Twice a day 11/20/2023 Active Symbicort [...] degrees Fahrenheit 01/11/20 25 Blood pressure systolic 154 mm Hg 01/11/20 25 Blood pressure diastolic 77 mm Hg 025 Heart Rate 94 /min 01/10/2025 Height 70 in 01/10/2025 Weight 172 lbs 01/10/2025 BMI 24.68 kg/m2 01/10/2025 Encounters Encounter Location Date Provider Diagnosis Ashish Huertas III, MD [address] [place] [address] [place] [address] 01/10/2025 Ashish Huertas Acute bronchitis due to other specified organisms J20.8 and Otitis externa of left ear, unspecified chronicity, unspecified type H60.92 Assessments Encounter Date Diagnosis (ICD Code) Assessment Notes Treatment Notes Treatment Clinical Notes 01/10/2025 Acute bronchitis due to other specified organisms (ICD-10 - J20.8) He is producing green phlegm and says he is wheezing. The inhaler is helping. He was given a Zithromax and prednisone with a follow-up visit. 01/10/2025 Otitis externa of left ear, unspecified chronicity, unspecified type (ICD-10 - H60.92) Plan Of Treatment Medication Medication Name Sig Start Date Stop Date Notes Cefuroxime Axetil 500 MG 1 tablet Orally every 12 hrs for 7 days 01/10/2025 01/24/2025 Sildenafil Citrate 100 MG 1 tablet as ne eded Orally Once a day 10/28/2024 Clopidogrel Bisulfate 75 MG 1 tablet Orally Once a day 01/2024 Ibuprofen 800 MG Oral Mupirocin 2 % 1 application Mixer Tender ally Twice a day 11/20/2023 Symbicort 160-4.5 [...] MG 1 tablet Orally Once a day Pending Test Test Name Order Date Routine Culture 01/10/2025 Next Appt Details Follow Up: 1 Week, Reason: T [facility] Provider Name:Ashish Huertas, 01/18/2025 02:45:00 PM, [address] [place] [address] [address], [place], [address], Provider Name:Ashish Huertas, 01/23/2025 02:30:00 PM, [address] [place] [address] [address], [place], [address], Provider Name:Ashish Huertas, 10/31/2025 02:00:00 PM, [address] [place] [address] [address], [place], [address], Progress Notes * Sid LANDEROS MDOB: 2 (64 yo M)Acc No.[id number]:01/10/2025 Progress Notes Patient:?Sid LANDEROS Provider:?Ashish Huertas MD :1960???Age:64 Y???Sex:Male Danny e:01/10/2025 Address:[address] [place] [address] [place], [id number] Subjective: * Chief Complaints: * ???1. Bilateral ear pain x 1 week. * HPI: ???COVID-19 Screening:? both ear discharge and crusts eli discomfort h earing, breathing ok, gets allergies, noct x 1, saw nazario yesterday? bp was up? got a new med. ?Questions?Have you had any new onset fever, chills, cough, congestion, sore throat, shortness of breath, muscle aches??No * ROS:?General/Constitutional:?pain?only normal aches and pains.?Chills?denies.?Fatigue?admits.?Fever?denies.?ENT:?Decreased hearing?denies.?Respiratory:?Cough?denies.?Cardiovascular:?Chest pain with exertion?denies.?Dyspnea on exertion?denies.?Shortness of breath?denies.?Gastrointestinal:?Constipation?denies.?Decreased appetite?denies.?Diarrhea?denies.?Heartburn?denies.?Nausea?denies.?Rectal bleeding?denies.?Vomiting?denies.?Hematology:?bruising?denies.?petechiae?denies.?Swollen glands?none have been noted.?Genitourinary:?Frequent urination?denies.?Musculoskeletal:?Muscle aches?denies.?Painful joints?denies.?Sciatica?denies.?Weakness?denies.?Skin:?Itching?denies.?Rash?denies.?Skin lesion(s)?denies.?Neurologic:?Difficulty speaking?denies.?Dizziness?denies.?Headache?denies.?Low back pain?denies.?Psychiatric:?Depressed mood?denies.? * Medical History:?COPD (chron ic obstructive pulmonary disease), Hypertension, Erectile dysfunction, Peripheral vascular disease, Environmental allergies, History of repaired pilonidal cyst, Excised lipoma, left triceps, age 8, Porphyria cutanea tarda, Dr. Brady, [facility], Tobacco dependence, Covid19 infection 2021, Lumbar radiculopathy, {'Porphyria': 'No current issues', 'Infection on backside': 'Resolved with antibiotics'}, The patient has a history of Porphyria but has not had any recent episodes. He also has hearing loss and is scheduled for a hearing test. He has been experiencing some issues with his legs, but after an ultrasound, his doctor reported that they were 'pumping terrific'.. * Surgical History:?Femoral -p opliteal arterial bypass @[facility] 05/2022, Esophagogastricduodoscopy , Excision of lipoma, left triceps, age 8 , Repair of pilonidal cyst , Fracture of 2 fingers , Colonoscopy, [facility], Dr. Ramos , Arterial Bipass 05/2022, No history . * Hospitalization/Major Diagno stic Procedure:?No history . * Family History:?Father: dece ased 72 yrs, diagnosed with CVD, DM.?Mother: 83 yrs.?Siblings: alive, ovarian cancer.?2 sister(s) . 1 son(s) - healthy. .? He is not aware of any family history of mental illness or substance abuse. His oldest sister has ovarian cancer. * Social History:?Tobacco Use:?Tobacco Control (Standard)?Tobacco use:?Current smoker ?How often do [...] He has reduced his smoking significantly. * Medications:?Taking Losartan Potassium 25 MG Tablet 1 tablet Orally Once a day , Taking Pantoprazole Sodium 40 MG Tablet Delayed Release one tablet daily Orally Once a day , Taking amLODIPine Besylate 10 MG Tablet as directed Orally Once a day , Taking Rosuvastatin Calcium 20 MG Tablet 1 tablet Orally Once a day , Taking Varenicline Tartrate (Starter) 0.5 MG X 11 & 1 MG X 42 Tablet Therapy Pack as directed Orally as directed , Taking traMADol HCl 50 MG Tablet 1 tablet Orally every 6 hours prn back pain , Taking Combivent Respimat 20-100 MCG/ACT Aerosol Solution 1 puff as needed Inhalation every 6 hrs , Taking Ibuprofen 800 MG Tablet Oral , Taking Symbicort 160-4.5 MCG/ACT Aerosol 2 puffs Inhalation Twice a day , Taking Mupirocin 2 % Ointment 1 application Externally Twice a day , Taking Clopidogrel Bisulfate 75 MG Tablet 1 tablet Orally Once a day , Taking Sildenafil Citrate 100 MG Tablet 1 tablet as needed Orally Once a day , Discontinued Azithromycin 250 MG Tablet take the tablets by mouth Orally 2 Tablets on the first day, one tablet the rest of the days , Discontinued Pantoprazole Sodium 40 MG Tablet Delayed Release one tablet daily Orally Once a day , Discontinued Sildenafil Citrate 100 MG Tablet 1 tablet Orally Once a day , Medication List reviewed and reconciled with the patient * Allergies:?Doxycycline. Objective: * Vitals:?Ht: 70, Wt: 172, BMI :24.68, BP: 154/77, HR: 94, Temp: 99.0, Ht-cm: 177.8, Wt-k.02. * Examination: ???General Examination: ?GENERAL APPEARANCE:?pleasant, well nourished, well developed, in no acute distress, calm and relaxed.?HEAD:?atraumatic, normocephalic.?EYES:?eomi, perrla, anicteric, conjugate.?EARS:?normal.?NOSE:?septum intact.?ORAL CAVITY:?normal, unremarkable.?NECK/THYROID:?no jugular venous distention, no carotid bruit, thyroid normal.?LYMPH NODES:?no enlarged lymph nodes,spleen normal.?SKIN:?no suspicious lesions, anicteric.?HEART:?no clicks, gallops, murmurs, or rubs, regular rhythm, S1, S2 normal, no s3, or vascular bruits.?LUNGS:?clear to auscultation .?BREASTS:??no masses palpable bilaterally.?ABDOMEN:?bowel sounds normal, no ascites, no organomegaly, no mass.?RECTAL EXAM:?not examined.?MUSCULOSKELETAL:?extremities unremarkable, no clubbing, cyanosis or edema.?PERIPHERAL PULSES:?normal.?NEUROLOGIC:?alert and oriented, cranial nerves 2-12 grossly intact, deep tendon reflexes 2+ symmetrical, motor strength normal upper and lower extremities, sensory exam intact.?PSYCH:?alert, oriented.? Assessment: * Assessment: 1.?Acute bronchitis due to o ther specified organisms - J20.8???Notes :He is producing green phlegm and says he is wheezing. The inhaler is helping. He was given a Zithromax and prednisone with a follow-up visit.???2.?Otitis externa of left ear, unspecified chronicity, unspecified type - H60.92??? Plan: * Treatment: 2.?Otitis externa of left ea r, unspecified chronicity, unspecified type?LAB: Routine Culture * Follow Up:?1 Week (Reason: [facility]) * Images: * The named appointment provid er may or may not be the originator of this progress note, and it is not deemed complete until electronically signed by the appointment provider. Sign off status: Pending * Provider:?Ashish Huertas MD Date:?12/27 Generated for Vanessa rodriguez/Namita/Braydensmitting on:?01/10/2025 02:42 PM EDT History and Physical Notes * HPI (History of Present Illness) Category Sub-Category Detail Notes COVID-19 Screening Questions Have you had any new onset fever, chills, cough, congestion, sore throat, shortness of breath, muscle aches?: No Examination Category Sub-Category Detail Notes General Examination GENERAL APPEARANCE: pleasant , well nourished, well developed, in no acute distress, calm and relaxed HEAD: atraumatic, normocep halic EYES: eomi, perrla, [...]
== END 2025-01-10 11:16 | disposition home or self-care (01) ==
LOC: HO.LNP 11:15
PROVIDERS: Visit Provider Internal Medicine Medical Oncology
DX: H60.92 Unspecified otitis externa, left ear (principal)
CPT/HCPCS: 87070; 87205

== ENCOUNTER 2025-02-01 11:21 | Outpatient (AMB) | payer BC, OTHER, SELFPAY ==
[2025-02-01 11:30] VITALS: BP 122/60; PULSE 96; O2SAT 97; BMI 24.4
--- NOTE | 2025-02-01 11:30 | A.OFFVIS_ITS ---
Vital Signs 02/01/25 11:30 Height 5 ft 10 in Weight 169 lb 12.095 oz BMI 24.4 BP 122/60 Blood Pressure Location Lt brachial Position Sitting Pulse 96 Pulse Source Pulse Oximeter Pulse Oximetry (%) 97 Oxygen Delivery Method Room Air Intake Visit Reasons: COPD follow-up Intake Note: pt is here to discuss a sleep study, he snores, witnessed apneas, and some daytime fatigue,breathing is stable right now Director Software Quality Assurance Required: No Allergies doxycycline Allergy (Verified 02/01/25 12:04) Hives nabumetone Adverse Reaction (Unknown, Verified 02/01/25 12:04) green stools Medication List - Last Reconciled 02/01/25 by Natalie Lino MD amlodipine 10 mg PO DAILY 90 days aspirin (Adult Aspirin Regimen) 81 mg PO DAILY bisacodyl 20 mg (4 x 5 mg) PO ONCE 1 day budesonide-formoterol 160-4.5 mcg/actuation (Symbicort) 2 inhalations PO BID clopidogrel 75 mg PO DAILY codeine-guaifenesin 10-100 mg/5 mL 10 mL PO Q4-6H PRN 1 week ibuprofen 800 mg PO Q8H PRN 90 days ipratropium-albuterol 20-100 mcg/actuation (Combivent Respimat) 1 puff inhalation Q6H PRN 90 days losartan 25 mg PO DAILY nicotine 10 mg inhalation 3XD 30 days nicotine 1 spray intranasal TID 30 days pantoprazole 40 mg PO DAILY polyethylene glycol 3350 (Miralax) 238 grams PO ONCE rosuvastatin 20 mg PO DAILY sildenafil 100 mg PO DAILY PRN Do you need a note to return to daycare/school/sports/work: No HPI HPI COPD follow-up: Details: This 64 years old is a case of chronic obstructive pulmonary disease which is being treated with Symbicort 160-4.52 puffs b.i.d.. And Combivent Respimat 1 inhalation Q 6 hours p.r.n. Breathing is holding very stable and he needs to use Combivent only once in a while. He is a cigarette smoker and trying to quit and uses Nicotine inhalation 10 mg t.i.d.. Today he is coming for a special visit with chief complaint of excessive snoring at night, and also with gasping type of sounds. His has witnessed some apneas. During the daytime he does have excessive daytime sleepiness. [place] Sleepiness amounts to 10/24. He wants to have a sleep study to check for sleep apnea. [facility] Medical History (Updated 02/01/25 @ 12:11 by Natalie Lino MD) Snoring Excessive daytime sleepiness Bronchitis Abnormal LFTs ETOH abuse Hereditary hemochromatosis Atherosclerotic cardiovascular disease Bilateral carotid artery stenosis PAD (peripheral artery disease) Murmur HTN (hypertension) Hyperlipidemia COPD (chronic obstructive pulmonary disease) SOB (shortness of breath) Allergic rhinitis Nicotine dependence, cigarettes, uncomplicated GERD (gastroesophageal reflux disease) Tubular adenoma of colon Porphyria cutanea tarda Arthritis Surgical History History of femoropopliteal bypass History of femoropopliteal bypass (11/02/23) S/P angiogram of extremity History of colonoscopy History of esophagogastroduodenoscopy History of lipoma History of skin graft History of removal of cyst History of foot surgery Family History Father Diabetes Stroke Hypertension Mother Chronic mental illness Family/Other FH: mental illness Social History Household Members: Spouse Housing: House Are you a primary housekeeper child care to a significant other at home: No Do you presently have visiting nurse or other home services: No 75 years or older and lives alone: No Alcohol intake: current Alcohol intake frequency: a few times a month Alcohol type: beer Comment: residual pain in left foot, but much improved and tolerable per patient. 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 occupational exposures/hazards: No Cognitive needs: No Hearing needs: No Vision needs: Yes Review of Systems Const All systems reviewed & are unremarkable except as noted in HPI and below Eyes Reports no additional complaints ENT Reports no additional complaints Card Denies chest pain, Denies irregular heart rhythm and Denies leg edema Resp Reports as per HPI GI Reports no additional complaints Reports erectile dysfunction Musc Reports no additional complaints Skin/Breast Reports system reviewed and no additional complaints, except as documented Neuro Reports no additional complaints Psych Reports no additional complaints Endo Reports no additional complaints Terrell/Lymph Reports other (h/o polycythemia ) Physical Exam Vital Signs: Last Vital Signs Pulse 96 02/01/25 11:30 BP 122/60 02/01/25 11:30 Pulse Ox 97 02/01/25 11:30 Oxygen Delivery Method Room Air 02/01/25 11:30 BMI result Body Mass Index 24.4 Const General: comfortable, no acute distress, alert and awake Orientation/consciousness: patient oriented x3 HEENT Head: Yes normal to inspection General nose exam: No nasal polyps present, No nasal discharge present and Other nasal findings present (MODERATE AMOUNT OF NASAL CONGESTION ESPECIALLY IN LEFT NARE ) Face and sinus: Yes sinuses nontender Mouth: oropharynx normal Teeth and gingiva: other (There is a mild degree of retrognathia of the lower jaw.) Throat: Yes posterior oropharynx normal Eyes General: appearance normal, both eyes and all related structures Neck Neck: Yes normal visual inspection, Yes no lymphadenopathy, Yes trachea midline and Yes no JVD Thyroid: Thyroid normal Chest Chest palpation & inspection: normal inspection of the chest, normal palpation of entire chest wall and no tenderness Resp Other: Percussion note resonant, breath sounds are distant with prolonged expiratory phase. He has inspiratory and expiratory wheezes scattered on both sides. Cardio Palpation: normal PMI Rate: regular rate Rhythm: regular rhythm Heart sounds: no gallops and no murmurs GI Palpation (GI): Soft to palpation, nontender, No hepatosplenomegaly present and no masses Auscultation: normal bowel sounds Back/Spine/Pelvis Thoracic/Lumbar Spine: thoracic and lumbar spine normal to inspection Skin General skin exam: no rashes or lesions noted Neuro General: patient oriented x3 and no focal motor deficits Cranial nerves: Yes CN's II-XII intact bilaterally Extrem General: Yes normal to inspection, Yes no clubbing, cyanosis or edema and Yes no calf tenderness Psych Appearance: grossly normal and well kempt Speech and movement: Normal speech and movement present Results Reviewed Results Reviewed: ESS= 07/21 Assessment & Plan Assessment & Plan (1) Excessive daytime sleepiness: Comment: [place] sleepiness scale is 10. Patient does have history of excessive snoring and awakenings at night with gasping like feeling. Code(s): G47.19 - Other hypersomnia Category: Medical Plan: I think he needs to have sleep study. It can be done at home. I will order a home-based sleep study test ( HST ) (2) Snoring: Comment: As told by his he snores excessively at night with frequent Code(s): R06.83 - Snoring Category: Medical Plan: Check for sleep apnea Orders: Orders RT home sleep study Today G47.19 - Other hypersomnia, R06.83 - Snoring Coding Level of Care Code Est Pt Level 3 (49174) Diagnoses Excessive daytime sleepiness G47.19 Snoring R06.83
--- OUTSIDE RECORDS SUMMARY | 2025-02-01 12:48 | XMS_ITS | Clinical Summary ---
Author Organization [facility] Address [address] [place] [address] Care Team Providers Care Older Adult Social Work Specialist Name Role Phone Goldie Watkins MD Primary [...] age to complete this topic Care Teams Older Adult Social Work Specialist Relationship Specialty Start Date End Date Goldie Watkins MD [address] [facility] , [address] [facility] Physician Associ D/B/A: [facility] [place] [id number] PCP - General Internal Medicine 06/08/17
--- OUTSIDE RECORDS SUMMARY | 2025-02-01 12:48 | XMS_ITS | Patient Health Record ---
Author Organization Ashish Huertas III, MD Address [address] [place] [address] Care Team Providers Care Exhibitions And Collections Manager Name Role Phone Ashish Huertas Primary [...] date:02/20/2024 04:43:15 AM Interpretation: Performing Lab: Notes/Report: [address] [address] Ultrasound Report Signed Patient: Sid Landeros MR#: [id number] : 1960 Acct:[id number] Age/Sex: 63 / M ADM Date: 02/15/24 Loc: HO.US Attending Dr: Jhony Orr MD Ordering Physician: Jhony Orr MD Date of Service: 02/15/24 Procedure(s): US KAI complete Accession Number(s): [id number] cc: Ashish Huertas MD; Jhony Orr MD [...] in OV> 02/17/24 1435 DD/ 0928 TD/TT: Senior Ruby Developer: [place] [address] Ultrasound Report Signed Patient: Marlo Landeros MR#: [id number] : 1960 Acct:[id number] Age/Sex: 63 / M ADM Date: 02/15/24 Loc: . Attending Dr: Jhony Orr MD Ordering Physician: Jhony Orr MD Date of Service: 02/15/24 Procedure(s): US KAI complete Accession Number(s): [id number] cc: Ashish Huertas MD; Jhony Orr MD [...] in OV> 02/17/24 1435 DD/ 0928 TD/TT: Senior Ruby Developer: US arterial duplex LE BI Reviewed date:02/20/2024 04:43:15 AM Interpretation: Performing Lab: Notes/Report: [address] [address] Ultrasound Report Signed Patient: Sid Landeros MR#: [id number] : 1960 Acct:[id number] Age/Sex: 63 / M ADM Date: 02/15/24 Loc: HO.US Attending Dr: Jhony Orr MD Ordering Physician: Jhony Orr MD Date of Service: 02/15/24 Procedure(s): US arterial duplex LE BI Accession Number(s): [id number] cc: Ashish Huertas MD; Jhony Orr MD [...] by Stanislav Roblero MD in OV> 02/17/24 4153 DD/ 0915 TD/TT: Senior Ruby Developer: [address] [address] Ultrasound Report Signed Patient: Marlo Landeros MR#: [id number] : 1960 Acct:[id number] Age/Sex: 63 / M ADM Date: 02/15/24 Loc: HO.US Attending Dr: Jhony Orr MD Ordering Physician: Jhony Orr MD Date of Service: 02/15/24 Procedure(s): US arterial duplex LE BI Accession Number(s): [id number] cc: Ashish Huertas MD; Jhony Orr MD [...] in OV> 02/17/24 1435 DD/ 0915 TD/TT: Senior Ruby Developer: Complete Blood Count Auto Di ff Reviewed date:05/15/2024 08:55:39 AM Interpretation: Performing Lab:[facility], [address] [place] [phone] Notes/Report: White Blood Count 6.6 4.8-10.8 X10*3/uL [...] Panel Reviewed date:05/15/2024 08:55:39 AM Interpretation: Performing Lab:[facility], [address] [place] [phone] Notes/Report: Sodium 132 135-145 mmol/L Potassium 3.8 [...] Glomerular Filt Rate > 60 NOTE: For -Somali individuals, multiply the result by 1.210. Chronic [...] Phosphatase 119 39-117 U/L COVID-19 ID NOW ([facility]) Reviewed date:05/15/2024 08:55:39 AM Interpretation: Performing Lab:[facility], [address] [place] [phone] Notes/Report: [facility] Serial# [id number] COVID-19 Test Negative Negative COVID-19 Note See [...] with other viruses. Testing facilities within the [facility] and its territories are required [...] by authorized laboratories. Testing performed on the [facility] ID NOW utilizing NAAT. Influenza A B2 ID NOW ([facility]) Reviewed date:05/15/2024 08:55:39 AM Interpretation: Performing Lab:[facility], [address] [place] [phone] Notes/Report: [facility] Serial# [id number] Influenza A Negative Negative Influenza B2 Negative [...] date:05/15/2024 08:55:39 AM Interpretation: Performing Lab: Notes/Report: [address] [address] XRay Report Signed Patient: Sid Landeros MR#: [id number] : 1960 Acct:[id number] Age/Sex: 63 / M ADM Date: 02/28/24 Loc: .ED Attending Dr: Ordering Physician: Generic ED Physician Date of Service: 02/28/24 Procedure(s): XR chest 2V Accession Number(s): [id number] cc: Ashish Huertas MD; Generic ED Physician [...] MD in OV> 02/28/24817 DD/ 5 TD/TT: Senior Ruby Developer: MAURA [address] [address] XRay Report Signed Patient: Marlo Landeros MR#: [id number] : 1960 Acct:[id number] Age/Sex: 63 / M ADM Date: 02/28/24 Loc: HO.ED Attending Dr: Ordering Physician: Generic ED Physician Date of Service: 02/28/24 Procedure(s): XR [address] 2V Accession Number(s): [id number] cc: Ashish Huertas MD; Generic ED Physician [...] MD in OV> 02/28/24817 DD/ 5 TD/TT: Senior Ruby Developer: MAURA Liver Panel Reviewed date:06/27/2024 06:04:41 AM Interpretation: Performing Lab:[address] [address] Notes/Report: Bilirubin Total 0.6 0.0-1.0 mg/dL Bilirubin Direct 0.3 0.0-0.5 mg/dL Aspartate Amino Transferase 40 5-37 U/L Alanine Aminotransferase 31 0-40 U/L Total Protein 7.8 6.5-8.0 g/dL Albumin Level 4.4 3.5-5.0 g/dL Alkaline Phosphatase 110 39-117 U/L Lipid Panel Reviewed date:06/27/2024 06:04:41 AM Interpretation: Performing Lab:[address] [address] Notes/Report: Triglycerides 39 <150 mg/dL Desirable Triglyceride: [...] date:09/24/2024 07:13:25 AM Interpretation: Performing Lab: Notes/Report: [address] [address] Ultrasound Report Signed Patient: Sid Landeros MR#: [id number] : 1960 Acct:[id number] Age/Sex: 63 / M ADM Date: 08/22/24 Loc: .US Attending Dr: Jhony Orr MD Ordering Physician: Jhony Orr MD Date of Service: 08/22/24 Procedure(s): US arterial duplex BI w/ KAI Accession Number(s): [id number] cc: Ashish Huertas MD; Jhony Orr MD [...] by: Sultana Beaver MD 09/23/2024 06:31 PM [facility] Dictated By: Twyla Beaver Signed By: <Electronically signed by Twyla Beaver in OV> 09/23/24 1831 DD/ 1133 TD/TT: 08/22/24 1210 Senior Ruby Developer: [place] [address] Ultrasound Report Signed Patient: Marlo Landeros MR#: [id number] : 1960 Acct:[id number] Age/Sex: 63 / M ADM Date: 08/22/24 Loc: .US Attending Dr: Jhony Orr MD Ordering Physician: Jhony Orr MD Date of Service: 08/22/24 Procedure(s): US arterial duplex BI w/ KAI Accession Number(s): [id number] cc: Ashish Huertas MD; Jhony Orr MD [...] by: Sultana Beaver MD 09/23/2024 06:31 PM [facility] Dictated By: Twyla Beaver Signed By: <Electronically signed by Twyla Beaver in OV> 09/23/24 1831 DD/ 1133 TD/TT: 08/22/24 1210 Senior Ruby Developer: US abdomen complete (Not yet reviewed by provider) Interpretation: Performing Lab: Notes/Report: [address] [address] Ultrasound Report Signed Patient: Sid Landeros MR#: [id number] : 1960 Acct:[id number] Age/Sex: 64 / M ADM Date: 11/29/24 Loc: HO.US Attending Dr: Wen Diaz MD Ordering Physician: Wen Diaz MD Date of Service: 11/29/24 Procedure(s): US abdomen complete Accession Number(s): [id number] cc: Ashish Huertas MD; Wen Diaz MD [...] by: Naman Roth MD 11/30/2024 07:39 AM [facility] Dictated By: Naman Roth MD Signed By: <Electronically signed by Naman Roth MD in OV> 11/30/24 0739 DD/ 1033 TD/TT: 11/29/24 1054 Senior Ruby Developer: [address] [address] Ultrasound Report Signed Patient: Marlo Landeros MR#: [id number] : 1960 Acct:[id number] Age/Sex: 64 / M ADM Date: 11/29/24 Loc: HO.US Attending Dr: Wen Diaz MD Ordering Physician: Wen Diaz MD Date of Service: 11/29/24 Procedure(s): US abdomen complete Accession Number(s): [id number] cc: Ashish Huertas MD; Wen Diaz MD [...] 11/30/24 0739 DD/ 1033 TD/TT: 11/29/24 1054 Senior Ruby Developer: [employer] Reason For Referral No Information Medications Medication SIG (Take, Route, Frequency, Duration) Notes Start Date End Date Status Sildenafil Citrate 100 MG 1 tablet as ne eded Orally Once a day 10/28/2024 Active Pantoprazole Sodium 40 MG one tablet miguel angel ly Orally Once a day 10/04/2024 Active Cefuroxime Axetil 500 MG 1 tablet Orally every 12 hrs 01/10/2025 Active amLODIPine Besylate 10 MG as directed Or ally Once a day Active Losartan Potassium 25 MG 1 tablet Orally Once a day 01/10/2025 Active Ibuprofen 800 MG Oral Act henrry Symbicort 160-4.5 MCG/ACT 2 puffs Inhala tion Twice a day Active Mupirocin 2 % 1 application Die Polisher ally Twice a day 11/20/2023 Active Clopidogrel Bisulfate 75 MG 1 tablet Ora lly Once a day 08/02/2024 Active Rosuvastatin Calcium 20 MG 1 tablet Oral ly Once a day Active Varenicline Tartrate (Starter) 0.5 MG X 11 & 1 MG X 42 as directed Orally as directed 01/30/2023 Active traMADol HCl 50 MG 1 tablet Orally ever y 6 hours prn back pain 12/23/2022 Active Combivent Respimat 20-100 MCG/ACT 1 puff as needed Inhalation every 6 hrs Active Immunizations Vaccine Route Administration Date Status [...] Status W/U Status Risk Notes Problem Hyperlipidemia (E78.5) Active confirmed Comprehensive blood work with a fasting lipid profile has been ordered. Problem 036008935 Overweight (E66.3) Active confirmed He is very slightly overweight.His BMI is 25.1. We discussed his diet and nutrition we made a plan to lose weight at a rate of one half of a pound per week. Problem Hypertension (38625355) Hypertension (I10) Active confirmed His blood pressure has been 134/77. No change in his regimen was made. I encouraged him to pursue aggressive sodium restriction. He was given an appointment to come to the office and recheck his blood pressure.He will continue on the losartan given by cardiology. Problem 08230272 Porphyria cutanea tarda (E80.1) Active confirmed The diagnosis of porphyria was made by a emergency medical services coordinator at [facility]. He affirms that if he goes into direct sunlight. He will experience blisters and skin lesions. He is well versed in how to prevent this and has medications for his skin. Problem 911334665 Acute bronchitis due to other specified organisms (J20.8) Active confirmed He is producing green phlegm and says he is wheezing. The inhaler is helping. He was given a Zithromax and prednisone with a follow-up visit. Problem Benign prostatic hyperplasia (190557054) BPH (benign prostatic hyperplasia) (N40.0) Active confirmed He rises from sleep usually once a night occasionally twice. We have discussed lifestyle modifications he can make to reduce nocturia. Problem 11949050 Tobacco dependence (F17.200) Active confirmed He continues to smoke a package of cigarettes every day. We discussed the health consequences of this. His COPD has been stable and inactive recently. I made him aware of the smoking cessation programs and the local hospitals and this community. Problem COPD - Chronic obstructive pulmonary disease (21565528) COPD (chronic obstructive pulmonary disease) (J44.9) Active [...] lung cancer, COPD, oxygen dependence, etc. Problem 30675005 Viral syndrome (B34.9) Active confirmed I'm going to speak to him on a daily basis because of the risk of progression of respiratory disease. He has continued to smoke and has COPD. He will continue to use his inhalers as directed. If necessary he will be given oral prednisone and an antibiotic. Problem 12632370 Pilonidal cyst (L05.91) Active confirmed He had an excision and repair of this cyst years ago. It is healed and no longer bothers him. Problem 240981535 Peripheral arterial disease (I73.9) Active confirmed His claudication is stable at 1 block. He recently saw the vascular surgeon. He recently underwent a revision of his left femoral-poplite al bypass graft. The wound is now healed. He experiences some claudication in his right leg and is able to walk one block without stopping to rest. Problem 570410385 Lumbar radiculopathy, right (M54.16) Active confirmed He continues to have pain that comes from his lower lumbar spine and right paravertebral muscles that radiates into his right buttock. X-rays have shown degenerative disease. The pain is aggravated with walking more than 10 feet and lifting more than 10 pounds. He has been referred to [facility] medicine for physical therapy injections imaging and evaluation for surgery. Problem 98479010 Acute diffuse otitis externa of both ears (H60.313) Active confirmed The left ear was primarily involved. The otic canalWas uninvolved. The tympanic membrane was normal. A prescription for Bactrim was given to him. Vital Signs Heart Rate 94 /min 01/10/2025 Temperature 99.0 degrees Fahrenheit 01/10/2025 Blood pressure diastolic 77 mm Hg 01/10/2025 Height 70 in 01/18/2025 Blood pressure systolic 134 mm Hg 01/10/2025 Weight 172 lbs 01/18/2025 BMI 24.68 kg/m2 01/18/2025 Encounters Encounter Location Date Provider Diagnosis Ashish Huertas III, MD [address] [place] [address] [place] [address] 02/09/2024 Ashish Huertas Tobacco dependence F17.200 ; Otitis of both ears H66.93 ; Peripheral arterial disease I73.9 ; BPH (benign prostatic hyperplasia) N40.0 ; Hypertension I10 and COPD (chronic obstructive pulmonary disease) J44.9 Ashish Huertas III, MD [address] [place] [address] [place] [address] 02/19/2024 Ashish Huertas Tobacco dependence F17.200 ; COPD (chronic obstructive pulmonary disease) J44.9 ; Peripheral arterial disease I73.9 ; Lumbar radiculopathy, right M54.16 ; Acute diffuse otitis externa of both ears H60.313 ; Porphyria cutanea tarda E80.1 ; Hypertension I10 and Overweight E66.3 Ashish Huertas III, MD [address] [place] [address] [place] [address] 04/29/2024 Ashish Huertas Tobacco dependence F17.200 ; Insect bite without infection W57.XXXA ; Hypertension I10 ; COPD (chronic obstructive pulmonary disease) J44.9 ; BPH (benign prostatic hyperplasia) N40.0 ; Peripheral arterial disease I73.9 ; Acute diffuse otitis externa of both ears H60.313 and Overweight E66.3 Ashish Huertas III, MD [address] [place] [address] [place] [address] 05/23/2024 Ashish Huertas Tobacco dependence F17.200 ; BPH (benign prostatic hyperplasia) N40.0 ; Overweight E66.3 ; COPD (chronic obstructive pulmonary disease) J44.9 ; Hypertension I10 ; Peripheral arterial disease I73.9 ; Porphyria cutanea tarda E80.1 and Acute diffuse otitis externa of both ears H60.313 Ashish Huertas III, MD [address] [place] [address] [place] [address] 08/02/2024 Ashish Huertas Infection of pelvis M86.9 ; Peripheral arterial disease I73.9 ; COPD (chronic obstructive pulmonary disease) J44.9 ; Lumbar radiculopathy, right M54.16 ; BPH (benign prostatic hyperplasia) N40.0 and Hypertension I10 Ashish Huertas III, MD [address] [place] [address] [place] [address] 08/15/2024 Ashish Huertas Infection of pelvis M86.9 ; Hypertension I10 ; BPH (benign prostatic hyperplasia) N40.0 ; COPD (chronic obstructive pulmonary disease) J44.9 ; Peripheral arterial disease I73.9 and Lumbar radiculopathy, right M54.16 Ashish Huertas III, MD [address] [place] [address] [place] [address] 10/28/2024 Ashish Huertas Hypertension I10 ; C OPD (chronic obstructive pulmonary disease) J44.9 ; BPH (benign prostatic hyperplasia) N40.0 ; Peripheral arterial disease I73.9 ; Tobacco dependence F17.200 ; Porphyria cutanea tarda E80.1 ; Lumbar radiculopathy, right M54.16 and Overweight E66.3 Ashish Huertas III, MD [address] [place] [address] [place] [address] 11/15/2024 Ashish Huertas Acute bronchitis due to other specified organisms J20.8 ; COPD (chronic obstructive pulmonary disease) J44.9 ; Tobacco dependence F17.200 ; Lumbar radiculopathy, right M54.16 ; Porphyria cutanea tarda E80.1 ; Hyperlipidemia E78.5 ; Hypertension I10 and Peripheral arterial disease I73.9 Ashish Huertas III, MD [address] [place] [address] [place] [address] 01/10/2025 Ashish Huertas Acute diffuse otitis externa of both ears H60.313 ; Lumbar radiculopathy, right M54.16 ; Hypertension I10 ; BPH (benign prostatic hyperplasia) N40.0 ; Peripheral arterial disease I73.9 ; Tobacco dependence F17.200 ; Porphyria cutanea tarda E80.1 and COPD (chronic obstructive pulmonary disease) J44.9 Ashish Huertas III, MD [address] [place] [address] [place] [address] 01/18/2025 Ashish Huertas Acute bronchitis due to other specified organisms J20.8 ; Hypertension I10 ; BPH (benign prostatic hyperplasia) N40.0 ; COPD (chronic obstructive pulmonary disease) J44.9 ; Peripheral arterial disease I73.9 and Lumbar radiculopathy, right M54.16 Ashish Huertas III, MD [address] [place] [address] [place] [address] 01/23/2025 Ashish Huertas Viral syndrome B34.9 ; COPD (chronic obstructive pulmonary disease) J44.9 ; Hypertension I10 ; BPH (benign prostatic hyperplasia) N40.0 ; Peripheral arterial disease I73.9 ; Tobacco dependence F17.200 ; Porphyria cutanea tarda E80.1 and Lumbar radiculopathy, right M54.16 Ashish Huertas III, MD [address] [place] [address] 02/09/2024 Ashish Huertas III, MD [address] [place] [address] [place] [address] 02/19/2024 Ashish Huertas III, MD [address] [place] [address] [place] [address] 02/24/2024 Ashish Huertas III, MD [address] [place] [address] [place] [address] 02/26/2024 Ashish Huertas III, MD [address] [place] [address] [place] [address] 02/26/2024 Ashish Huertas III, MD [address] [place] [address] [place] [address] 05/03/2024 Ashish Huertas Tobacco dependence F17.200 Ashish Huertas III, MD [address] [place] [address] [place] [address] 05/19/2024 Ashish Huertas III, MD [address] [place] [address] [place] [address] 07/01/2024 Ashish Huertas III, MD [address] [place] [address] [place] [address] 10/04/2024 Ashish Huertas Infection of pelvis M86.9 Ashish Huertas III, MD [address] [place] [address] [place] [address] 11/21/2024 Ashish Huertas III, MD [address] [place] [address] [place] [address] 11/21/2024 Ashish Huertas III, MD [address] [place] [address] [place] [address] 12/19/2024 Ashish Huertas III, MD [address] [place] [address] [place] [address] 01/24/2025 Ashish Huertas Assessments Encounter Date Diagnosis (ICD Code) Assessment Notes Treat ment Notes Treatment Clinical Notes 02/09/2024 Tobacco dependence (ICD-10 - F17.200) He [...] include lung cancer, COPD, oxygen dependence, etc. 01/10/2025 Lumbar radiculopathy, right (ICD-10 - M54.16) He continues to have pain that comes from his lower lumbar spine and right paravertebral muscles that radiates into his right buttock. X-rays have shown degenerative disease. The pain is aggravated with walking more than 10 feet and lifting more than 10 pounds. He has been referred to [facility] in [facility] medicine for physical therapy injections imaging and evaluation for surgery. 01/10/2025 Acute diffuse otitis externa of both ears (ICD-10 - H60.313) The left ear was primarily involved. The otic canalWas uninvolved. The tympanic membrane was normal. A prescription for Bactrim was given to him. 01/18/2025 Hypertension (ICD-10 - I10) His blood pressure has been 134/77. No change in his regimen was made. I encouraged him to pursue aggressive sodium restriction. He was given an appointment to come to the office and recheck his blood pressure.He will continue on the losartan given by cardiology. 01/18/2025 Acute bronchitis due to other specified organisms (ICD-10 - J20.8) He is producing green phlegm and says he is wheezing. The inhaler is helping. He was given a Zithromax and prednisone with a follow-up visit. 01/23/2025 COPD (chronic obstructive pulmonary disease) (ICD-10 [...] lung cancer, COPD, oxygen dependence, etc. 01/23/2025 Viral syndrome (ICD-10 - B34.9) I'm going to speak to him on a daily basis because of the risk of progression of respiratory disease. He has continued to smoke and has COPD. He will continue to use his inhalers as directed. If necessary he will be given oral prednisone and an antibiotic. 05/03/2024 Tobacco dependence (ICD-10 - F17.200) He [...] the left side. It is now resolved 02/09/2024 Peripheral arterial disease (ICD-10 - I73.9) [...] the local hospitals and this community. 01/10/2025 Hypertension (ICD-10 - I10) His blood [...] he can make to reduce nocturia. 01/23/2025 Hypertension (ICD-10 - I10) His blood pressure has been 134/77. No change in his regimen was made. I encouraged him to pursue aggressive sodium restriction. He was given an appointment to come to the office and recheck his blood pressure.He will continue on the losartan given by cardiology. 02/09/2024 BPH (benign prostatic hyperplasia) (ICD-10 - [...] pounds. He has been referred to [facility] medicine for physical [...] 10 pounds. He has been referred to [facility] in [facility] for physical therapy injections imaging and [...] 10 pounds. He has been referred to [facility] in [facility] for physical therapy injections imaging and evaluation for surgery. 01/10/2025 BPH (benign prostatic hyperplasia) (ICD-10 - [...] lung cancer, COPD, oxygen dependence, etc. 01/23/2025 BPH (benign prostatic hyperplasia) (ICD-10 - N40.0) He rises from sleep usually once a night occasionally twice. We have discussed lifestyle modifications he can make to reduce nocturia. 02/09/2024 Hypertension (ICD-10 - I10) His blood [...] diagnosis of porphyria was made by a emergency medical services coordinator at [facility]. He affirms that if he goes into direct sunlight. He will experience blisters and skin lesions. He is well versed in how to prevent this and has medications for his skin. 01/10/2025 Peripheral arterial disease (ICD-10 - I73.9) His claudication is stable at 1 block. He recently saw the vascular surgeon. He recently underwent a revision of his left femoral-popliteal bypass graft. The wound is now healed. He experiences some claudication in his right leg and is able to walk one block without stopping to rest. 01/18/2025 Peripheral arterial disease (ICD-10 - I73.9) His claudication is stable at 1 block. He recently saw the vascular surgeon. He recently underwent a revision of his left femoral-popliteal bypass graft. The wound is now healed. He experiences some claudication in his right leg and is able to walk one block without stopping to rest. 01/23/2025 Peripheral arterial disease (ICD-10 - I73.9) His claudication is stable at 1 block. He recently saw the vascular surgeon. He recently underwent a revision of his left femoral-popliteal bypass graft. The wound is now healed. He experiences some claudication in his right leg and is able to walk one block without stopping to rest. 02/09/2024 COPD (chronic obstructive pulmonary disease) (ICD-10 [...] diagnosis of porphyria was made by a emergency medical services coordinator at [facility]. He [...] pounds. He has been referred to [facility] medicine for physical therapy injections imaging and evaluation for surgery. 10/28/2024 Porphyria cutanea tarda (ICD-10 - E80.1) The diagnosis of porphyria was made by a emergency medical services coordinator at [facility]. He affirms that if he goes into direct sunlight. He will experience blisters and skin lesions. He is well versed in how to prevent this and has medications for his skin. 11/15/2024 Hyperlipidemia (ICD-10 - E78.5) Comprehensive blood work with a fasting lipid profile has been ordered. 01/10/2025 Tobacco dependence (ICD-10 - F17.200) He continues to smoke a package of cigarettes every day. We discussed the health consequences of this. His COPD has been stable and inactive recently. I made him aware of the smoking cessation programs and the local hospitals and this community. 01/18/2025 Lumbar radiculopathy, right (ICD-10 - M54.16) He continues to have pain that comes from his lower lumbar spine and right paravertebral muscles that radiates into his right buttock. X-rays have shown degenerative disease. The pain is aggravated with walking more than 10 feet and lifting more than 10 pounds. He has been referred to [facility] in [facility] for physical therapy injections imaging and evaluation for surgery. 01/23/2025 Tobacco dependence (ICD-10 - F17.200) He continues to smoke a package of cigarettes every day. We discussed the health consequences of this. His COPD has been stable and inactive recently. I made him aware of the smoking cessation programs and the local hospitals and this community. 02/19/2024 Hypertension (ICD-10 - I10) His most [...] diagnosis of porphyria was made by a emergency medical services coordinator at [facility]. He [...] 10 pounds. He has been referred to [facility] in [facility] spine and sports rehabilitation medicine for physical therapy injections imaging and evaluation for surgery. 11/15/2024 Hypertension (ICD-10 - I10) His blood pressure has been 142/70. No change in his regimen was made. I encouraged him to pursue aggressive sodium restriction. He was given an appointment to come to the office and recheck his blood pressure. 01/10/2025 Porphyria cutanea tarda (ICD-10 - E80.1) The diagnosis of porphyria was made by a emergency medical services coordinator at [facility]. He affirms that if he goes into direct sunlight. He will experience blisters and skin lesions. He is well versed in how to prevent this and has medications for his skin. 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 He affirms that if he goes into direct sunlight. He will experience blisters and skin lesions. He is well versed in how to prevent this and has medications for his skin. 02/19/2024 Overweight (ICD-10 - E66.3) He is [...] one block without stopping to rest. 01/10/2025 COPD (chronic obstructive pulmonary disease) (ICD-10 [...] lung cancer, COPD, oxygen dependence, etc. 01/23/2025 Lumbar radiculopathy, right (ICD-10 - M54.16) He continues to have pain that comes from his lower lumbar spine and right paravertebral muscles that radiates into his right buttock. X-rays have shown degenerative disease. The pain is aggravated with walking more than 10 feet and lifting more than 10 pounds. He has been referred to [facility] in [facility] spine and sports rehabilitation medicine for physical therapy injections imaging and evaluation for surgery. Plan Of Treatment Pending Test Test Name [...] thoracic spine 3V 11/27/2023 Routine Culture 02/09/2024 Routine Culture 01/10/2025 Next Appt Details Provider Name:Ashish Roldanne, 10/31/2025 02:00:00 PM, [address] [place] [address] JENN[address] SEGAL, [place], [address], Insurance Providers Payer Name Payer Address Payer Phone Subscriber Number Group Number Insured Name Patient Relationship to Insured Coverage Start Date Coverage End Date [facility] [address] [place], [place] [phone] [id number] Sid Landeros Self - patient is the [address] [place] [address] [phone] [id number] Sid Landeros Self - patient is the insured Medical (General) History Medical History History ICD Code COPD (chronic obstructive pulmonary dise ase) J44.9 Hypertension I10 Erectile dysfunction Peripheral vascular disease Environmental allergies History of repaired pilonidal cyst Excised lipoma, left triceps, age 8 Porphyria cutanea kurtis, Dr. Brady, [facility] Tobacco dependence Covid19 infection 2021 Lumbar [...] Date(Month/Year) No history Arterial Bipass 05/2022 Colonoscopy, [facility], Dr. Ramos Fracture of 2 fingers Repair of pilonidal cyst Excision of lipoma, left triceps, age 8 Esophagogastricduodoscopy [place]oral -[place]opliteal [place] Hospitalization History Reason Date(Month/Year) No history
--- OUTSIDE RECORDS SUMMARY | 2025-02-01 12:49 | XMS_ITS ---
Author Organization Ashish Huertas III, MD Address [address] [facility] [place] [address] Care Team Providers Care Linux System Engineer Name Role Phone Ashish Huertas Primary Care Provider [phone] Allergies Allergen (clinical drug ingredient) Drug/Non Drug [...] 01/10/2025 Active Mupirocin 2 % 1 application Ceramic Engineer ally Twice a day 11/20/2023 Active Clopidogrel [...] Problem Status W/U Status Risk Notes Problem [id number] Viral syndrome (B34.9) Active confirmed I'm going to speak to him on a daily basis because of the risk of progression of respiratory disease. He has continued to smoke and has COPD. He will continue to use his inhalers as directed. If necessary he will be given oral prednisone and an antibiotic. Encounters Encounter Location Date Provider Diagnosis Ashish Huertas III, MD [address] [place] [address] [place] [address] 01/23/2025 Ashish Huertas Viral syndrome B34.9 ; [...] diagnosis of porphyria was made by a crewman main battle tank at [facility]. He affirms that if he goes [...] 10 pounds. He has been referred to [facility] spine and sports rehabilitation medicine for [...] day 2024 Mupirocin 2 % 1 application Ceramic Engineer ally Twice a day 11/20/2023 Clopidogrel Bisulfate [...] Next Appt Details Follow Up: as scheduled, Watkins son: OV as scheduled Provider Name:Ashish Huertas, 10/31/2025 02:00:00 PM, [address] [place] [address] J[address] SE[address], [place], [address], Progress Notes * Sid LANDEROS MDOB: [birth year] (64 yo M)Acc No.[id number]:01/23/2025 Patient:?Sid LANDEROS Provider:?Ashish Huertas MD :1960???Age:64 Y???Sex:Male Danny e:01/23/2025 Address:[address] [place] [address], [id number] Subjective: * Chief Complaints: * ???Viral syndromeOver FeriaC OPDHypertensionTobacco dependenceLumbar radiculopathy * HPI: ???COVID-19 Screening:?This telehealth visit took place over 15 minutes with the patient at home and me in my office.? He gave consent for billing.? This gentleman has known COPD and peripheral arterial disease benign prostatic hypertrophy lumbar radiculopathy and hypertension in the face of continued smoking 1 package of cigarettes per day.? He reports that beginning yesterday he felt very tired and developed a shaking chill when a temperature of 99.5.? He has a runny nose and shortness of breath with exertion.? His Covid test is negative.He does not think he is wheezing.? He continues to take his inhalers.? It sounds over the phone like a viral syndrome or influenza, not an exacerbation of COPD.? He is going to talk to me on the telephone every day.? If necessary he will be given steroids and antibiotics. ?Questions?Have you had any new onset fever, chills, cough, congestion, sore throat, shortness of breath, muscle aches??No ???:?Telehealth?Location of provider rendering services:?{...} [address] [facility] [address] ?Location of patient:?address listed in demographics for today's visit ?Patient identification confirmed using:?Name, ?Telehealth method:?Telephone only. Patient not visible to care provider. ?Consent:?Patient verbally consented to treatment, Patient verbally consented to billing insurance company, Patient informed of any privacy concerns related to method of visit ?Total time spent with patient (mins)?15 * ROS:?General/Constitutional:?pain?only normal aches and pains, only normal aches and pains.?Chills?associated with fever, denies.?Fatigue?admits, admits.?Fever?up to 99 degrees, denies.?ENT:?Decreased hearing?denies, denies.?Respiratory:?Cough?worse at night, denies.?Cardiovascular:?Chest pain with exertion?denies, denies.?Dyspnea on exertion?denies, denies.?Shortness of breath?with exertion, denies.?Gastrointestinal:?Constipation?occasional, denies.?Decreased appetite?that is not associated with weight loss, denies.?Diarrhea?denies, denies.?Heartburn?denies, denies.?Nausea?denies, denies.?Rectal bleeding?denies, denies. Vomiting?denies, denies.?Hematology:?bruising?denies, denies.?petechiae?denies, denies.?Swollen glands?none have been noted, none have been noted.?Genitourinary:?Frequent urination?once a night, denies.?Musculoskeletal:?Muscle aches?denies, denies.?Painful joints?denies, denies.?Sciatica?denies, denies.?Weakness?denies, denies.?Skin:?Itching?denies, denies.?Rash?denies, denies.?Skin lesion(s)?denies, denies.?Neurologic:?Difficulty speaking?denies, denies.?Dizziness?denies, denies.?Headache?denies, denies.?Low back pain?denies, denies.?Psychiatric:?Depressed mood?denies, denies.? * Medical History:? * Surgical History:?Femoral -p opliteal arterial [place] [place]Esophagogastricduodoscopy Excision of lipoma, left triceps, age 8 Repair of pilonidal cyst Fracture of 2 fingers Colonoscopy, [facility], Dr. Ramos Arterial Bipass 05/2022No [...] patient * Allergies:?Doxycyclineno[All ergies Verified] Objective: * Vitals:? Assessment: * Assessment: 1.?Viral syndrome - B34.9 (P rimary)???Notes :I'm going to speak to him on a daily basis because of the risk of progression of respiratory disease.? He has continued to smoke and has COPD.? He will continue to use his inhalers as directed.? If necessary he will be given oral prednisone and an antibiotic.???2.?COPD (chronic obstructive pulmonary disease) - J44.9???Notes :His [...] which include lung cancer, COPD, oxygen dependence, etc.???3.?Hypertension - I10???Notes :His blood pressure has been 134/77. No change in his regimen was made. I encouraged him to pursue aggressive sodium restriction. He was given an appointment to come to the office and recheck his blood pressure.He will continue on the losartan given by cardiology.???4.?BPH (benign prostatic hyperplasia) - N40.0???Notes :He rises from sleep usually once a night occasionally twice. We have discussed lifestyle modifications he can make to reduce nocturia.???5.?Peripheral arterial disease - I73.9???Notes :His claudication is stable at 1 block. He recently saw the vascular surgeon. He recently underwent a revision of his left femoral-popliteal bypass graft. The wound is now healed. He experiences some claudication in his right leg and is able to walk one block without stopping to rest.???6.?Tobacco dependence - F17.200???Notes :He continues to smoke a package of cigarettes every day. We discussed the health consequences of this. His COPD has been stable and inactive recently. I made him aware of the smoking cessation programs and the local hospitals and this community.???7.?Porphyria cutanea tarda - E80.1???Notes :The diagnosis of porphyria was made by a crewman main battle tank at [facility]. He affirms that if he goes into direct sunlight. He will experience blisters and skin lesions. He is well versed in how to prevent this and has medications for his skin.???8.?Lumbar radiculopathy, right - M54.16???Notes :He continues to have pain that comes from his lower lumbar spine and right paravertebral muscles that radiates into his right buttock. X-rays have shown degenerative disease. The pain is aggravated with walking more than 10 feet and lifting more than 10 pounds. He has been referred to [facility] spine and sports rehabilitation medicine for physical therapy injections imaging and evaluation for surgery.??? Plan: * Treatment: * Procedure Codes:?64412 SYNCH AUDIO-ONLY EST SF 10 * Preventive Medicine:? ??Counseling:?Smoking/Tobacco Use?Patient counseled on the dangers of tobacco use and urged to quit.?01/23/2025 ?Patient Lifestyle Goals?Patient wants to quit ?Treatment [...] Smoking.?Barriers?no barriers.?Self-Managment Goals?Make a plan for quitting smoking, Get an air purifier for the rooms you are in the most, Eat a healthy diet, Exercise at least 3xs per week for at least 30 mins.? * Follow Up:?as scheduled (Elisabet son: OV as scheduled) * Images: * Sign off status: Completed true * Provider:?Ashish Huertas MD Date:?12/28 Generated for Vanessa rodriguez/Namita/eTransmitting on:?02/01/2025 12:49 PM EDT History and Physical Notes * HPI (History of Present Illness) Category Sub-Category Detail Notes Telehealth Location of [facility] rendering services:: {...} [address] [place] [address] Location of patient:: address listed in demographics [...]
--- OUTSIDE RECORDS SUMMARY | 2025-02-01 12:49 | XMS_ITS | Continuity of Care Document ---
Author Name [facility] Organization [facility] Care Team Providers Care Living Skills Advisor Name Role Phone [facility] Unavailable Unavailable Problems Combined list of problems [...] [facility] Exposure to potentially hazardous substance ([facility] [id number]) Active Condition Dec 30 Entered By: GRACE [...] RIZO Comment: diagnosed 2016 , Dr Witt [facility] History of colonoscopy Active Condition Dec 24, 2024 Entered By: MICHAEL BOSWELL Comment: [facility], Dr. Ramos- 2020- Needs Colonoscopy ordered [...] NEEDED RESPIR ATORY (INHAL ATION) HOLD 12/30/2025 [id number] W[place]FREDO WALKER 2024 [facility] AMLODIPINE BESYLATE 10MG TAB TAKE ONE TABLET BY MOUTH ONCE DAILY FOR BLOOD PRESSURE /HEART, DO NOT TAKE WITH GRAPEFRU IT JUICE ORAL HOLD 12/30/2025 [id number] 5 [place] WALKER 2024 90 [facility] [place] [facility] ASPIRIN 81MG TAB,EC TAKE ONE TABLET BY MOUTH ONCE DAILY TO PREVENT STROKE/H EART ATTACK ORAL HOLD 12/30/2025 [id number] 5 W[place]FREDO WALKER 2024 120 [facility] [place] [facility] CLOPIDOGREL BISULFATE 75MG TAB TAKE ONE TABLET BY MOUTH ONCE DAILY ORAL HOLD 12/30/2025 [id number] 5 W[place]FREDO WALKER 2024 90 [facility] FLUTICASONE 250MCG/SALM ETEROL 50MCG INHL,ORAL,D ISKUS,60 INHALE 1 PUFF BY MOUTH TWICE DAILY - RINSE MOUTH AFTER USE RESPIR ATORY (INHAL ATION) HOLD 12/30/2025 [id number] 5 W[place]FREDO WALKER 2024 3 [facility] IBUPROFEN 800MG TAB TAKE ONE TABLET BY MOUTH THREE TIMES DAILY WITH MEALS TAKE WITH FOOD ORAL HOLD 12/30/2025 [id number] 5 [facility]FRED[facility] WALKER 2024 90 [facility] NICOTINE 10MG/ML SOLN,NASAL SPRAY INSTILL 1 SPRAY INTO EACH NOSTRIL SIX TIMES A DAY NEEDED FOR SMOKING CESSATIO N NASAL HOLD 12/30/2025 [id number] 5 [facility]FREDO WALKER 2024 [facility] PANTOPRAZOL E NA 40MG TAB,EC TAKE ONE TABLET BY MOUTH EVERY MORNING 30 MINUTES BEFORE BREAKFAS T ORAL HOLD 12/30/2025 [id number] 5 [facility] PIERRE 2024 90 [facility] ROSUVASTATI N CA 40MG TAB TAKE ONE-HALF TABLET BY MOUTH ONCE DAILY FOR CHOLESTE ROL ORAL HOLD 12/30/2025 [id number] 5 [facility]ANK[facility] 2024 45 [facility] SILDENAFIL CITRATE 100MG TAB TAKE ONE TABLET BY MOUTH NEEDED TAKE 1 HOUR PRIOR TO SEXUAL ACTIVITY ORAL HOLD 12/30/2025 [id number] 5 K[facility]ENPANKAJ [facility] 2024 18 [facility] Allergies, Adverse Reactions, Alerts Combined list of allergies from Department of Defense and Veterans Affairs facilities. It does not include entries that were removed or entered in error. Substance Category Reaction Severity Reaction type Status Date Reported Comments Source DOXYCYCLINE Propensity to adverse reactions to drug (finding) Urticaria active 5 [facility] Immunizations Combined list of available immunizations from the Department of Defense and Veterans Affairs facilities. Immunization Series Date Given Administered By Site Reaction Lot Number CVX Code Drug Endless Belt Finisher Status Comments Source COVID-19 (MODERNA), MRNA, LNP-S, PF, 100 MCG/0.5ML DOSE OR 50 MCG/0.25ML DOSE 2 2020 207 complet ed HISTORICA L INFORMATI ON - FROM OTHER REGISTRY, COVID 19 Moderna Mfr: MODERNA [employer] [facility] COVID-19 (MODERNA), MRNA, LNP-S, PF, 100 MCG/0.5ML [...] Disposition Source [facility] Outpatient Encounter [id number] 12/19 [facility] [place] Outpatient Encounter [id number] 12/24 [facility] [place] [place] [facility] OFFICE O/P [place] 60 MIN [id number] Diagnos is: ICD-10- CM I73.9 Periphe ral vascula r disease , unspeci fied JESSICA RM,EDYTA PIERRE 12/29 [facility] [place] [facility] Outpatient Encounter [id number] 01/03 [facility] [place] [facility] [place] [facility] Outpatient Encounter [id number] 01/04 [facility] [place] [facility] [place] [facility] Outpatient Encounter [id number] ANAHY HUNTLEY 01/09 [facility] [place] [facility] [place] [facility] Outpatient Encounter [id number] 01/31 [facility] [place] [facility] Social History Combined list of available smoking, tobacco, and other social history from Department of Defense and Veterans Affairs facilities. Social History Type Response Date Comment Sourc e Tobacco smoking status INIS NH-TOBACCO USE EVERY DAY CIGARETTES 12/24/2024 [facility] [place] [facility] History of tobacco use NH-TOBACCO NEVER USED OTHER TYPE 12/24/2024 [facility] [place] [facility] Plan of Care List of future care activities from Department of Veterans Affairs facilities. Additional future care activities may be listed in the Assessment and Plan section. Date/Time Care Activity Care Activity Detail Facili ty 02/08/2025 AMBULATORY - MEDICINE [facility] Advance Directives List of completed, amended, or rescinded Advance Directives on record at Department of Veterans Affairs facilities. An actual copy of the Directive is not included. Date Advance Directive Provider Source 12/29/2024 ADVANCE DIRECTIVE SENIA HUNTLEY [place] PRERNA OMER [facility]
--- OUTSIDE RECORDS SUMMARY | 2025-02-01 12:49 | XMS_ITS | Encounter Summary ---
Author Name [facility] Organization [facility] Address [address] [place] [address] Care Team Providers Care Business Unit Manager Name Role Phone ORTIZ RIZO Primary Care Provider Unavailable Selected Encounter This section includes the information on record at [place] for the Encounter. Date/Time Encounter Type Encounter Description Reason Pro vider Source January 31, 2025 08:25 AM Outpatient Encounter ADMIN PAT ACTIVTIES (MASNONCT) [facility] Encounter Template Text not used by [place] Plan of Treatment: Future Appointments (+ 6 months) and Future Tests (+/- 45 days) The Plan of Treatment section includes future care activities for the patient from all [facility]. This section includes future appointments and future orders which are active, pending or scheduled. Future Appointments This section includes appointments that were scheduled to occur 6 months from the date of the Encounter, up to a maximum of 20 appointments. The data comes from all [place] treatment facilities. Appointment Date/Time Appointment Type Appointme nt Facility Name February 08, 2025 09:00 AM AMBULATORY - MEDICINE [facility] Jun 27, 2025 09:00 AM AMBULATORY - MEDICINE [facility] Active, Pending, and Scheduled Orders This section includes a listing of several types of active, pending, and scheduled orders, including clinic medications orders, diagnostic test orders, procedure orders and consult orders; where the start date of the order is 45 days before the date of the Encounter or 45 days after the date of theEncounter. The data comes from all [place] treatment facilities. Test Date/Time Test Type Test Details Facility Name Dec 29, 2024 12:00 AM Laboratory - Chemi stry Order LIVER FUNCTION BLOOD (SST-SERUM) [facility] Dec 29, 2024 12:00 AM Laboratory - Chemi stry Order LIPID PANEL FASTING BLOOD (SST-SERUM) [facility] Dec 29, 2024 12:00 AM Laboratory - Chemi stry Order CBC AND DIFF (AUTO) BLOOD (LAV-BLOOD) [facility] Dec 29, 2024 12:00 AM Laboratory - Chemi stry Order FERRITIN BLOOD (SST-SERUM) [facility] Dec 29, 2024 12:00 AM Laboratory - Chemi stry Order PSA BLOOD (SST-SERUM) [facility] Dec 29, 2024 12:00 AM Laboratory - Chemi stry Order BASIC METABOLIC PANEL (fasting) BLOOD (SST-SERUM) [facility] Dec 29, 2024 12:00 AM Laboratory - Chemi stry Order HEPATITIS B SURFACE ANTIBODY (HBsAb)-WH BLOOD (SST-SERUM) [facility] Dec 29, 2024 12:00 AM Laboratory - Chemi stry Order HEPATITIS C ANTIBODY (HCV)-ARC BLOOD (MARBLED-TOP SERUM) [facility] Dec 29, 2024 12:00 AM Laboratory - Chemi stry Order HIV 1&2 Ag/Ab SCREEN BLOOD (SST-SERUM) [facility] Social History: Smoking Status (Most current) and Tobacco Use (All prior to encounter date) This section includes the most current, and the historical, smoking and tobacco- related health factors from the [facility] where the Encounter took place. Current Smoking Status This section includes the most current smoking, or tobacco-related health factor, from the [place] facility where the Encounter took place. Date/Time Current Smoking Status Comment Facil ity Dec 24, 2024 11:02 AM [place]-TOBACCO USE MALLORY RY DAY CIGARETTES [facility] Tobacco Use History This section includes a history of the smoking, or tobacco-related health factors, that were collected on or before the date of the Encounter. The data comes from the [place] facility where the Encounter took place. Date/Time Smoking Status/Tobacco Use Comment F acility Dec 24, 2024 11:02 AM VA-TOBACCO SCREEN FOLLOW-UP [place] [facility] [place] [facility] Dec 24, 2024 11:02 AM VA-TOBACCO USE ADVICE [facility] [place] [facility] Dec 24, 2024 11:02 AM VA-TOBACCO USE COMMERCIAL CREDIT LEAD NO [facility] [place] [facility] Dec 24, 2024 11:02 AM VA-TOBACCO USE MALLORY RY DAY CIGARETTES [place] [facility] [place] [facility] Dec 24, 2024 11:02 AM VA-TOBACCO USE MED NO [place] [facility] Advance Directives: All historical and current Section Date Range: From patient's date of to the date document was created. This section includes ALL of a patient's completed or amended [place] Advance and Rescinded Directives. The entries below indicate that a directive exists for the patient, but an actual copy is not included with this document. The data comes from all [place] facilities. Date Advance Directives Provider Source Dec 29, 2024 ADVANCE DIRECTIVE SENIA HUNTLEY [place] [facility] Encounter Notes: All associated encounter notes This section contains the clinical notes associated to the Encounter. Date/Time Encounter Note(s) Provider Source January 31, 2025 08:49 AM ADDENDUM: LOCAL TITLE: Addendum STANDARD TITLE: ADDENDUM DATE OF NOTE: JANUARY 31, 2025@08:49:33 ENTRY DATE: JANUARY 31, 2025@08:49:34 AUTHOR: SENIA HUNTLEY EXP COSIGNER: URGENCY: STATUS: COMPLETED Jarvis, will you please reschedule this RN visit? /silke/ SENIA HUNTLEY LPN LPN Signed: 01/31/2025 08:50 Receipt Acknowledged By: 01/31/2025 10:02 /silke/ JARVIS LINDSAY [facility] === --- Original Document --- 01/31/25 CCC: SCHEDULING ADMINISTRATION: Caller Verification Emergency Contact: UNK UNK Caller/Recipient Relation to Patient: Self Caller Name: NATASHA WHYTE Administrative Administrative Note Reason: Other Administrative Note Comments: VET had canceled previous pact RN appointment for BP check because VET said he has the flu. VET decline to speak with [facility] ceramist at this time. VET request a call back to reschedule the RN appointment for BP check. Please call VET to re schedule. IMPORTANT: This note was created by [facility] Clinical Contact Center staff. Please do not alert the staff member by adding them as a signer for future communications. Alerts are not monitored by this user. /silke/ NATALIO GUNDERSON [facility] Signed: 01/31/2025 08:25 Receipt Acknowledged By: * AWAITING SIGNATURE * MILLIE NICOLE * AWAITING SIGNATURE * SENIA HUNTLEY 01/31/2025 ADDENDUM STATUS: COMPLETED Appt r/s to 02/08. /silke/ JARVIS LINDSAY [facility] Signed: 01/31/2025 10:01 SENIA HUNTLEY [place] [facility] [place] [facility] January 31, 2025 08:25 AM ADMINISTRATIVE NOT E: LOCAL TITLE: CCC: SCHEDULING ADMINISTRATION STANDARD TITLE: ADMINISTRATIVE NOTE DATE OF NOTE: JANUARY 31, 2025@08:25:20 ENTRY DATE: JANUARY 31, 2025@08:25:20 AUTHOR: NATALIO GUNDERSON EXP COSIGNER: URGENCY: STATUS: COMPLETED CCC: SCHEDULING ADMINISTRATION Has ADDENDA Caller Verification Emergency Contact: UNK UNK Caller/Recipient Relation to Patient: Self Caller Name: NATASHA WHYTE Administrative Administrative Note Reason: Other Administrative Note Comments: VET had canceled previous pact RN appointment for BP check because VET said he has the flu. VET decline to speak with [facility] ceramist at this time. VET request a call back to reschedule the RN appointment for BP check. Please call VET to re schedule. IMPORTANT: This note was created by [facility] Clinical Contact Center staff. Please do not alert the staff member by adding them as a signer for future communications. Alerts are not monitored by this user. /silke/ NATALIO GUNDERSON [facility] Signed: 01/31/2025 08:25 Receipt Acknowledged By: 01/31/2025 15:03 /silke/ MILLIE NICOLE, MILAGROS, RN, CNL PRIMARY CARE TEAM NURSE 01/31/2025 10:23 /silke/ SENIA HUNTLEY LPN LPN 01/31/2025 ADDENDUM STATUS: COMPLETED Jarvis, will you please reschedule this RN visit? /sikle/ SENIA HUNTLEY LPN LPN Signed: 01/31/2025 08:50 Receipt Acknowledged By: 01/31/2025 10:02 /silke/ JARVIS LINDSAY [facility] 01/31/2025 ADDENDUM STATUS: COMPLETED Appt r/s to 02/08. /luis armando LINDSAY [facility] Signed: 01/31/2025 10:01 NATALIO GUNDERSON [place] [facility]
--- OUTSIDE RECORDS SUMMARY | 2025-02-01 12:49 | XMS_ITS ---
Author Organization Ashish Huertas III, MD Address [address] [place] [address] Care Team Providers Care Landscaping Manager Name Role Phone Ashish Huertas Primary Care Provider [phone] REASON FOR VISIT Message Social History Sex Assigned At : Social History Observation Description Sex Assigned At Male Encounters Encounter Location Date Provider Diagnosis Ashish Huertas III, MD [address] [place] [address] [place] [address] 01/24/2025 Ashish Huertas Plan Of Treatment Next Appt Details Provider Name:Ashish Huertas, 10/31/2025 02:00:00 PM, [address] [place] [address] [address] [place], [place], [phone], Progress Notes * Sid LANDEROS MDOB: 2 (64 yo M)Acc No.[id number]:01/24/2025 Patient:?Sid LANDEROS :1960???Age:64 Y???Sex:Male Address[address] [place], [address] * true * Date:? Generated for Printi ng/Faxing/eTransmitting on:?02/01/2025 12:48 PM EDT
--- OUTSIDE RECORDS SUMMARY | 2025-02-01 12:49 | XMS_ITS ---
Author Organization Ashish Huertas III, MD Address [address] [place] [address] Care Team Providers Care Soda Jerker Name Role Phone Ashish Huertas Primary Care [...] day Active Mupirocin 2 % 1 application Bulk Receiver ally Twice a day 11/20/2023 Active Clopidogrel [...] Date Provider Diagnosis Ashish Huertas III, MD [address] [place] [address] [place] [address] 01/18/2025 Ashish Huertas Acute bronchitis due to [...] pounds. He has been referred to [facility] medicine for physical therapy injections imaging and evaluation for surgery. Plan Of Treatment Medication Medication Name Sig Start Date Stop Date Notes Combivent Respimat 20-100 MCG/ACT 1 puff as needed Inhalation every 6 hrs Ibuprofen 800 MG Oral Symbicort 160-4.5 MCG/ACT 2 puffs Inhala tion Twice a day Mupirocin 2 % 1 application Bulk Receiver ally Twice a day 11/20/2023 Clopidogrel Bisulfate [...] Next Appt Details Follow Up: As Scheduled, Elisabet son: OV Provider Name:Ashish Huertas, 10/31/2025 02:00:00 PM, [address] [place] [address] [address], [address], [place], [address], Progress Notes * Sid LANDEROS MDOB: 2 (64 yo M)Acc No.[id number]:01/18/2025 Patient:?Sid LANDEROS Provider:?Ashish Huertas MD :1960???Age:64 Y???Sex:Male Danny e:01/18/2025 Address:[address] [place] [address], [place], [id number] Subjective: * Chief Complaints: * ???CopdHypertensionBenign pr ostatic hypertrophyPeripheral arterial diseasePorphyriaLumbar radiculopathyTobacco dependenceBilateral ear pain with dyscharge * HPI: ???:? This telehealth visit took place over 15 min. with the patient at home and me in my office.? He gave consent for billing.? He reports that after treatment the pain in his ears has resolved and there is no further discharge.? His hearing has returned to baseline.? He has no new complaints and is breathing comfortably.? ?He has not experienced any pollen allergies.? His other medical issues are stable. ?Telehealth?Location of provider rendering services:?{...} [address] [facility] [address] ?Location of patient:?address listed in demographics for today's visit ?Patient identification confirmed using:?Name, ?Telehealth method:?Telephone only. Patient not visible to care provider. ?Consent:?Patient verbally consented to treatment, Patient verbally consented to billing insurance company, Patient informed of any privacy concerns related to method of visit ?Total time spent with patient (mins)?15 * ROS:?General/Constitutional:?pain?only normal aches and pains.?Chills?denies.?Fatigue?admits.?Fever?denies.?ENT:?Decreased hearing?denies.?Respiratory:?Cough?non-productive.?Cardiovascular:?Chest pain with exertion?denies.?Dyspnea on exertion?denies.?Shortness of breath?with exertion.?Gastrointestinal:?Constipation?occasional.?Decreased appetite?denies.?Diarrhea?denies.?Heartburn?denies.?Nausea?denies.?Rectal bleeding?denies.?Vomiting?denies.?Hematology:?bruising?denies.?petechiae?denies.?Swollen glands?none have been noted.?Genitourinary:?Frequent urination?once a night.?Musculoskeletal:?Muscle aches?denies.?Painful joints?denies.?Sciatica?denies.?Weakness?denies.?Skin:?Itching?denies.?Rash?denies.?Skin lesion(s)?denies.?Neurologic:?Difficulty speaking?denies.?Dizziness?denies.?Headache?denies.?Low back pain?denies.?Psychiatric:?Depressed mood?denies.? * Medical History:? * Surgical History:?Femoral -p opliteal [place] [place]Esophagogastricduodoscopy Excision of lipoma, left triceps, age 8 Repair of pilonidal cyst Fracture of 2 fingers Colonoscopy, [facility], Dr. Ramos Arterial Bipass 05/2022No history [...] ergies Verified] Objective: * Vitals:?Ht: 70, Wt: 172, BMI :24.68, Ht-cm: 177.8, Wt-k.02. * ???Past Orders: Lab:URINE DIP STICK * Collection Date [...] (Ref Range: Negative -) Assessment: * Assessment: 1.?Acute bronchitis due to o ther specified organisms - J20.8 (Primary)???Notes :He is producing green phlegm and says he is wheezing. The inhaler is helping. He was given a Zithromax and prednisone with a follow-up visit.???2.?Hypertension - I10???Notes :His blood pressure has been 134/77. No change in his regimen was made. I encouraged him to pursue aggressive sodium restriction. He was given an appointment to come to the office and recheck his blood pressure.He will continue on the losartan given by cardiology.???3.?BPH (benign prostatic hyperplasia) - N40.0???Notes :He rises [...] etc.???5.?Peripheral arterial disease - I73.9???Notes :His claudication is [...] pounds. He has been referred to [facility] spine and sports rehabilitation medicine for physical therapy injections imaging and evaluation for surgery.??? Plan: * Treatment: 2.?Others? Continue Losartan Potassium Tablet, 25 MG, 1 tablet, Orally, Once a day.?? * Procedure Codes:? * Preventive Medicine:? ??Counseling:?Smoking/Tobacco Use?Patient counseled on the dangers of tobacco use and urged to quit.?01/18/2025 ?Patient Lifestyle Goals?Patient wants to quit ?Treatment Goals?Cut down by 1 cigarette a week, Set a quit date ?Barriers?Social smoker, Stress ?Self-Management Plan?Make a plan to cut down number of cigarettes over time and set a date to work towards quitting ??COPD Care Plan:?Patient Lifestyle Goals?Be able to be more active with friends and family, Relieve symptoms and improve quality of life.?Treatment Goals?Exercise to help whole body, including lungs, Quit Smoking.?Barriers?no barriers.?Self-Managment Goals?Make a plan for quitting smoking.? * Follow Up:?As Scheduled (Elisabet son: OV) * Images: * Sign off status: Completed true * Provider:?Ashish Huertas MD Date:?12/28 Generated for Vanessa rodriguez/Namita/eTransmitting on:?02/01/2025 12:48 PM EDT History and Physical Notes * HPI (History of Present Illness) Category Sub-Category Detail Notes Telehealth Location of [facility] rendering services:: {...} [address] [facility] [address] Location of patient:: address listed in demographics [...]
== END 2025-02-01 12:54 | disposition home or self-care (01) ==
LOC: HO.HPS 11:22
PROVIDERS: PCP Internal Medicine Medical Oncology; Visit Provider Internal Medicine
DX: G47.19 Other hypersomnia (principal); R06.83 Snoring
CPT/HCPCS: 99213

== ENCOUNTER → 2025-02-01 11:21 | Outpatient (BNVA) | payer BC, OTHER, SELFPAY | PROVIDERS: PCP Internal Medicine Medical Oncology; Visit Provider Internal Medicine ==

== ENCOUNTER 2025-02-14 17:03 | Outpatient (REF) | payer BC, OTHER, SELFPAY ==
--- OUTSIDE RECORDS SUMMARY | 2025-02-14 17:06 | XMS_ITS | Clinical Summary ---
Author Organization [facility] Address [address] [place] [address] Care Team Providers Care Ophthalmic Technician Apprentice Name Role Phone Goldie Watkins MD Primary [...] age to complete this topic Care Teams Ophthalmic Technician Apprentice Relationship Specialty Start Date End Date Goldie Watkins MD [address] [facility] , [address] [facility] D/B/A: [facility] [place] [address] PCP - General Internal Medicine 06/08/17
--- OUTSIDE RECORDS SUMMARY | 2025-02-14 17:06 | XMS_ITS | Patient Health Record ---
Author Organization Ashish Huertas III, MD Address [address] [place] [address] Care Team Providers Care Lock Fitter Name Role Phone Ashish Huertas Primary Care Provider [phone] Allergies Allergen (clinical drug ingredient) Drug/Non Drug [...] date:02/20/2024 04:43:15 AM Interpretation: Performing Lab: Notes/Report: [address] [address] Ultrasound Report Signed Patient: Sid Landeros MR#: [id number] : 1960 Acct:[id number] Age/Sex: 63 / M ADM Date: 02/15/24 Loc: HO.US Attending Dr: Jhony Orr MD Ordering Physician: Jhony Orr MD Date of Service: 02/15/24 Procedure(s): US KAI complete Accession Number(s): [id number] cc: Ashish Huertas MD; Jhony Orr MD [...] in OV> 02/17/24 1435 DD/ 0928 TD/TT: Machine Brush Maker: [place] [address] Ultrasound Report Signed Patient: Marlo Landeros MR#: [id number] : 1960 Acct:[id number] Age/Sex: 63 / M ADM Date: 02/15/24 Loc: . Attending Dr: Jhony Orr MD Ordering Physician: Jhony Orr MD Date of Service: 02/15/24 Procedure(s): US KAI complete Accession Number(s): [id number] cc: Ashish Huertas MD; Jhony Orr MD [...] in OV> 02/17/24 1435 DD/ 0928 TD/TT: Machine Brush Maker: US arterial duplex LE BI Reviewed date:02/20/2024 04:43:15 AM Interpretation: Performing Lab: Notes/Report: [address] [address] Ultrasound Report Signed Patient: Sid Landeros MR#: [id number] : 1960 Acct:[id number] Age/Sex: 63 / M ADM Date: 02/15/24 Loc: HO.US Attending Dr: Jhony Orr MD Ordering Physician: Jhony Orr MD Date of Service: 02/15/24 Procedure(s): US arterial duplex LE BI Accession Number(s): [id number] cc: Ashish Huertas MD; Jhony Orr MD [...] by Stanislav Roblero MD in OV> 02/17/24 5636 DD/ 0915 TD/TT: Machine Brush Maker: [address] [address] Ultrasound Report Signed Patient: Marlo Landeros MR#: [id number] : 1960 Acct:[id number] Age/Sex: 63 / M ADM Date: 02/15/24 Loc: HO.US Attending Dr: Jhony Orr MD Ordering Physician: Jhony Orr MD Date of Service: 02/15/24 Procedure(s): US arterial duplex LE BI Accession Number(s): [id number] cc: Ashish Huertas MD; Jhony Orr MD [...] in OV> 02/17/24 1435 DD/ 0915 TD/TT: Machine Brush Maker: Complete Blood Count Auto Di ff Reviewed date:05/15/2024 08:55:39 AM Interpretation: Performing Lab:[facility], [address] [place] [phone] Notes/Report: White Blood Count 6.6 4.8-10.8 X10*3/uL [...] Panel Reviewed date:05/15/2024 08:55:39 AM Interpretation: Performing Lab:[facility], [address] [place] [phone] Notes/Report: Sodium 132 135-145 mmol/L Potassium 3.8 [...] Phosphatase 119 39-117 U/L COVID-19 ID NOW (TrackerSphere) Reviewed date:05/15/2024 08:55:39 AM Interpretation: Performing Lab:[facility], [address] [place] [phone] Notes/Report: IDNOW Serial# [id number] COVID-19 Test Negative Negative COVID-19 Note See [...] with other viruses. Testing facilities within the [facility] and its territories are required [...] by authorized laboratories. Testing performed on the TrackerSphere ID NOW utilizing NAAT. Influenza A B2 ID NOW (Abbot t) Reviewed date:05/15/2024 08:55:39 AM Interpretation: Performing Lab:[facility], [address] [place] [phone] Notes/Report: [facility] Serial# [id number] Influenza A Negative Negative Influenza B2 Negative [...] date:05/15/2024 08:55:39 AM Interpretation: Performing Lab: Notes/Report: [address] [address] XRay Report Signed Patient: Sid Landeros MR#: [id number] : 1960 Acct:[id number] Age/Sex: 63 / M ADM Date: 02/28/24 Loc: .ED Attending Dr: Ordering Physician: Generic ED Physician Date of Service: 02/28/24 Procedure(s): XR chest 2V Accession Number(s): [id number] cc: Ashish Huertas MD; Generic ED Physician [...] MD in OV> 02/28/[address] DD/ 5 TD/TT: Machine Brush Maker: MAURA [address] [address] XRay Report Signed Patient: Marlo Landeros MR#: [id number] : 1960 Acct:[id number] Age/Sex: 63 / M ADM Date: 02/28/24 Loc: HO.ED Attending Dr: Ordering Physician: Generic ED Physician Date of Service: 02/28/24 Procedure(s): XR [address] st 2V Accession Number(s): [id number] cc: Ashish Huertas MD; Generic ED Physician [...] MD in OV> 02/28/24817 DD/ 5 TD/TT: Machine Brush Maker: MAURA Liver Panel Reviewed date:06/27/2024 06:04:41 AM Interpretation: Performing Lab:[address] [address] Notes/Report: Bilirubin Total 0.6 0.0-1.0 mg/dL Bilirubin Direct 0.3 0.0-0.5 mg/dL Aspartate Amino Transferase 40 5-37 U/L Alanine Aminotransferase 31 0-40 U/L Total Protein 7.8 6.5-8.0 g/dL Albumin Level 4.4 3.5-5.0 g/dL Alkaline Phosphatase 110 39-117 U/L Lipid Panel Reviewed date:06/27/2024 06:04:41 AM Interpretation: Performing Lab:[address] [address] Notes/Report: Triglycerides 39 <150 mg/dL Desirable Triglyceride: [...] date:09/24/2024 07:13:25 AM Interpretation: Performing Lab: Notes/Report: [address] [address] Ultrasound Report Signed Patient: Sid Landeros MR#: [id number] : 1960 Acct:[id number] Age/Sex: 63 / M ADM Date: 08/22/24 Loc: .US Attending Dr: Jhony Orr MD Ordering Physician: Jhony Orr MD Date of Service: 08/22/24 Procedure(s): US arterial duplex BI w/ KAI Accession Number(s): [id number] cc: Ashish Huertas MD; Jhony Orr MD [...] by: Sultana Beaver MD 09/23/2024 06:31 PM [facility] Dictated By: Twyla Beaver Signed By: <Electronically signed by Twyla Beaver in OV> 09/23/24 1831 DD/ 1133 TD/TT: 08/22/24 1210 Machine Brush Maker: [place] [address] Ultrasound Report Signed Patient: Marlo Landeros MR#: [id number] : 1960 Acct:[id number] Age/Sex: 63 / M ADM Date: 08/22/24 Loc: .US Attending Dr: Jhony Orr MD Ordering Physician: Jhony Orr MD Date of Service: 08/22/24 Procedure(s): US arterial duplex BI w/ KAI Accession Number(s): [id number] cc: Ashish Huertas MD; Jhony Orr MD [...] by: Sultana Beaver MD 09/23/2024 06:31 PM [facility] Dictated By: Twyla Beaver Signed By: <Electronically signed by Twyla Beaver in OV> 09/23/24 1831 DD/ 1133 TD/TT: 08/22/24 1210 Machine Brush Maker: US abdomen complete (Not yet reviewed by provider) Interpretation: Performing Lab: Notes/Report: [address] [address] Ultrasound Report Signed Patient: Sid Landeros MR#: [id number] : 1960 Acct:[id number] Age/Sex: 64 / M ADM Date: 11/29/24 Loc: HO.US Attending Dr: Wen Diaz MD Ordering Physician: Wen Diaz MD Date of Service: 11/29/24 Procedure(s): US abdomen complete Accession Number(s): [id number] cc: Ashish Huertas MD; Wen Diaz MD [...] by: Naman Roth MD 11/30/2024 07:39 AM [facility] Dictated By: Naman Roth MD Signed By: <Electronically signed by Naman Roth MD in OV> 11/30/24 0739 DD/ 1033 TD/TT: 11/29/24 1054 Machine Brush Maker: [address] [address] Ultrasound Report Signed Patient: Marlo Landeros MR#: [id number] : 1960 Acct:[id number] Age/Sex: 64 / M ADM Date: 11/29/24 Loc: HO.US Attending Dr: Wen Diaz MD Ordering Physician: Wen Diaz MD Date of Service: 11/29/24 Procedure(s): US abdomen complete Accession Number(s): [id number] cc: Ashish Huertas MD; Wen Diaz MD [...] 11/30/24 0739 DD/ 1033 TD/TT: 11/29/24 1054 Machine Brush Maker: [facility] Reason For Referral No Information Medications Medication SIG (Take, Route, Frequency, Duration) Notes Start Date End Date Status Rosuvastatin Calcium 20 MG 1 tablet Oral ly Once a day Active Sulfamethoxazole-Trimethop rim 800-160 MG 1 tablet Orally twice a day for 14 days 02/14/2025 04/11/2025 Active Combivent Respimat 20-100 MCG/ACT 1 puff as needed Inhalation every 6 hrs Active Ibuprofen 800 MG Oral Act henrry Symbicort 160-4.5 MCG/ACT 2 puffs Inhala tion Twice a day Active Clopidogrel Bisulfate 75 MG 1 tablet Orally Once a day 08/02/2024 Active Sildenafil Citrate 100 MG 1 tablet as ne eded Orally Once a day 10/28/2024 Active Losartan Potassium 25 MG 1 tablet Orally Once a day 01/10/2025 Active amLODIPine Besylate 10 MG 1 tablet Orall y Once a day for 90 days Active Pantoprazole Sodium 40 MG one tablet miguel angel ly Orally Once a day 10/04/2024 Active Immunizations Vaccine Route Administration Date Status [...] Status W/U Status Risk Notes Problem Hyperlipidemia (75406363) Hyperlipidemia (E78.5) Active confirmed Comprehensive blood work with a fasting lipid profile has been ordered. Problem 974471071 Overweight (E66.3) Active confirmed He is very slightly overweight.His BMI is 25.1. We discussed his diet and nutrition we made a plan to lose weight at a rate of one half of a pound per week. Problem Hypertension (57399948) Hypertension (I10) Active confirmed His blood pressure has been 134/77. No change in his regimen was made. I encouraged him to pursue aggressive sodium restriction. He was given an appointment to come to the office and recheck his blood pressure.He will continue on the losartan given by cardiology. Problem 00742427 Porphyria cutanea tarda (E80.1) Active confirmed The diagnosis of porphyria was made by a business analysis consultant at [facility]. He affirms that if he goes into direct sunlight. He will experience blisters and skin lesions. He is well versed in how to prevent this and has medications for his skin. Problem 811627145 Acute bronchitis due to other specified organisms (J20.8) Active confirmed He is producing green phlegm and says he is wheezing. The inhaler is helping. He was given a Zithromax and prednisone with a follow-up visit. Problem Benign prostatic hyperplasia (270169560) BPH (benign prostatic hyperplasia) (N40.0) Active confirmed He rises from sleep usually once a night occasionally twice. We have discussed lifestyle modifications he can make to reduce nocturia. Problem 67672232 Tobacco dependence (F17.200) Active confirmed He continues [...] lung cancer, COPD, oxygen dependence, etc. Problem 86655620 Viral syndrome (B34.9) Active confirmed I'm going to speak to him on a daily basis because of the risk of progression of respiratory disease. He has continued to smoke and has COPD. He will continue to use his inhalers as directed. If necessary he will be given oral prednisone and an antibiotic. Problem 85107950 Pilonidal cyst (L05.91) Active confirmed He had an excision and repair of this cyst years ago. It is healed and no longer bothers him. Problem 550666664 Peripheral arterial disease (I73.9) Active confirmed His claudication is stable at 1 block. He recently saw the vascular surgeon. He recently underwent a revision of his left femoral-poplite al bypass graft. The wound is now healed. He experiences some claudication in his right leg and is able to walk one block without stopping to rest. Problem 792905883 Lumbar radiculopathy, right (M54.16) Active confirmed He continues to have pain that comes from his lower lumbar spine and right paravertebral muscles that radiates into his right buttock. X-rays have shown degenerative disease. The pain is aggravated with walking more than 10 feet and lifting more than 10 pounds. He has been referred to [facility] rehabilitation medicine for physical therapy injections imaging and evaluation for surgery. Problem 80303224 Acute diffuse otitis externa of both ears (H60.313) Active confirmed The left ear was primarily involved. The otic canalWas uninvolved. The tympanic membrane was normal. A prescription for Bactrim was given to him. Vital Signs Heart Rate 98 /min 02/14/2025 Temperature 98.1 degrees Fahrenheit 02/14/2025 Blood pressure diastolic 80 mm Hg 02/14/2025 Height 70 in 02/14/2025 Blood pressure systolic 110 mm Hg 02/14/2025 Weight 167 lbs 02/14/2025 BMI 23.96 kg/m2 02/14/2025 Encounters Encounter Location Date Provider Diagnosis Ashish Huertas III, MD [address] [place] [address] [place] [address] 02/14/2025 Ashish Huertas Otorrhea of right ea r H92.11 Ashish Huertas III, MD [address] [place] [address] [place] [address] 02/19/2024 Ashish Huertas Tobacco dependence F17.200 ; COPD (chronic obstructive pulmonary disease) J44.9 ; Peripheral arterial disease I73.9 ; Lumbar radiculopathy, right M54.16 ; Acute diffuse otitis externa of both ears H60.313 ; Porphyria cutanea tarda E80.1 ; Hypertension I10 and Overweight E66.3 Ashish Huertas III, MD [address] [place] [address] [place] [address] 04/29/2024 Ashish Huertas Tobacco dependence F17.200 ; Insect bite without infection W57.XXXA ; Hypertension I10 ; COPD (chronic obstructive pulmonary disease) J44.9 ; BPH (benign prostatic hyperplasia) N40.0 ; Peripheral arterial disease I73.9 ; Acute diffuse otitis externa of both ears H60.313 and Overweight E66.3 Ashish Huertas III, MD [address] [place] [address] [place] [address] 05/23/2024 Ashish Huertas Tobacco dependence F17.200 ; BPH (benign prostatic hyperplasia) N40.0 ; Overweight E66.3 ; COPD (chronic obstructive pulmonary disease) J44.9 ; Hypertension I10 ; Peripheral arterial disease I73.9 ; Porphyria cutanea tarda E80.1 and Acute diffuse otitis externa of both ears H60.313 Ashish Huertas III, MD [address] [place] [address] [place] [address] 08/02/2024 Ashish Huertas Infection of pelvis M86.9 ; Peripheral arterial disease I73.9 ; COPD (chronic obstructive pulmonary disease) J44.9 ; Lumbar radiculopathy, right M54.16 ; BPH (benign prostatic hyperplasia) N40.0 and Hypertension I10 Ashish Huertas III, MD [address] [place] [address] [place] [address] 08/15/2024 Ashish Huertas Infection of pelvis M86.9 ; Hypertension I10 ; BPH (benign prostatic hyperplasia) N40.0 ; COPD (chronic obstructive pulmonary disease) J44.9 ; Peripheral arterial disease I73.9 and Lumbar radiculopathy, right M54.16 Ashish Huertas III, MD [address] [place] [address] [place] [address] 10/28/2024 Ashish Huertas Hypertension I10 ; C OPD (chronic obstructive pulmonary disease) J44.9 ; BPH (benign prostatic hyperplasia) N40.0 ; Peripheral arterial disease I73.9 ; Tobacco dependence F17.200 ; Porphyria cutanea tarda E80.1 ; Lumbar radiculopathy, right M54.16 and Overweight E66.3 Ashish Huertas III, MD [address] [place] [address] [place] [address] 11/15/2024 Ashish Huertas Acute bronchitis due to other specified organisms J20.8 ; COPD (chronic obstructive pulmonary disease) J44.9 ; Tobacco dependence F17.200 ; Lumbar radiculopathy, right M54.16 ; Porphyria cutanea tarda E80.1 ; Hyperlipidemia E78.5 ; Hypertension I10 and Peripheral arterial disease I73.9 Ashish Huertas III, MD [address] [place] [address] [place] [address] 01/10/2025 Ashish Huertas Acute diffuse otitis externa of both ears H60.313 ; Lumbar radiculopathy, right M54.16 ; Hypertension I10 ; BPH (benign prostatic hyperplasia) N40.0 ; Peripheral arterial disease I73.9 ; Tobacco dependence F17.200 ; Porphyria cutanea tarda E80.1 and COPD (chronic obstructive pulmonary disease) J44.9 Ashish Huertas III, MD [address] [place] [address] [place] [address] 01/18/2025 Ashish Huertas Acute bronchitis due to other specified organisms J20.8 ; Hypertension I10 ; BPH (benign prostatic hyperplasia) N40.0 ; COPD (chronic obstructive pulmonary disease) J44.9 ; Peripheral arterial disease I73.9 and Lumbar radiculopathy, right M54.16 Ashish Huertas III, MD [address] [place] [address] [place] [address] 01/23/2025 Ashish Huertas Viral syndrome B34.9 ; COPD (chronic obstructive pulmonary disease) J44.9 ; Hypertension I10 ; BPH (benign prostatic hyperplasia) N40.0 ; Peripheral arterial disease I73.9 ; Tobacco dependence F17.200 ; Porphyria cutanea tarda E80.1 and Lumbar radiculopathy, right M54.16 Ashish Huertas III, MD [address] [place] [address] [place] [address] 02/19/2024 Ashish Huertas III, MD [address] [place] [address] [place] [address] 02/24/2024 Ashish Huertas III, MD [address] [place] [address] [place] [address] 02/26/2024 Ashish Huertas III, MD [address] [place] [address] 02/26/2024 Ashish Huertas III, MD [address] [place] [address] 05/03/2024 Ashish Huertas Tobacco dependence F17.200 Ashish Huertas III, MD [address] [place] [address] 05/19/2024 Ashish Huertas III, MD [address] [place] [address] 07/01/2024 Ashish Huertas III, MD [address] [place] [address] 10/04/2024 Ashish Huertas Infection of pelvis M86.9 Ashish Huertas III, MD [address] [place] [address] 11/21/2024 Ashish Huertas III, MD [address] [place] [address] 11/21/2024 Ashish Huertas III, MD [address] [place] [address] 12/19/2024 Ahsish Huertas III, MD [address] [place] [address] [place] [address] 01/24/2025 Ashish Huertas Assessments Encounter Date Diagnosis (ICD Code) Assessment Notes Treat ment Notes Treatment Clinical Notes 02/14/2025 Otorrhea of right ear (ICD-10 - H92.11) 02/19/2024 Tobacco dependence (ICD-10 - F17.200) He [...] 10 pounds. He has been referred to [facility] spine and sports rehabilitation medicine [...] the left side. It is now resolved 02/19/2024 Peripheral arterial disease (ICD-10 - I73.9) [...] continue on the losartan given by cardiology. 02/19/2024 Lumbar radiculopathy, right (ICD-10 - M54.16) He continues to have pain that comes from his lower lumbar spine and right paravertebral muscles that radiates into his right buttock. X-rays have shown degenerative disease. The pain is aggravated with walking more than 10 feet and lifting more than 10 pounds. He has been referred to [facility] in [facility] and [facility] for physical therapy injections imaging [...] 10 pounds. He has been referred to [facility] in [facility] spine and [facility] for physical therapy injections imaging [...] 10 pounds. He has been referred to [facility] in [facility] spine and sports rehabilitation medicine [...] modifications he can make to reduce nocturia. 02/19/2024 Acute diffuse otitis externa of both [...] diagnosis of porphyria was made by a business analysis consultant at [facility]. He affirms that if he goes [...] walk one block without stopping to rest. 02/19/2024 Porphyria cutanea tarda (ICD-10 - E80.1) The diagnosis of porphyria was made by a business analysis consultant at [facility]. He affirms that if he goes [...] 10 pounds. He has been referred to [facility] spine and sports rehabilitation medicine for physical therapy injections imaging and evaluation for surgery. 10/28/2024 Porphyria cutanea tarda (ICD-10 - E80.1) The diagnosis of porphyria was made by a business analysis consultant at [facility]. He affirms that if he goes [...] 10 pounds. He has been referred to [facility] in [facility] spine and sports rehabilitation [facility] for physical therapy injections imaging and [...] diagnosis of porphyria was made by a business analysis consultant at [facility]. He affirms that if he goes [...] 10 pounds. He has been referred to [facility] in [facility] spine and sports rehabilitation [facility] for physical therapy injections imaging and [...] diagnosis of porphyria was made by a business analysis consultant at [facility]. He affirms that if he goes into direct sunlight. He will experience blisters and skin lesions. He is well versed in how to prevent this and has medications for his skin. 01/23/2025 Porphyria cutanea tarda (ICD-10 - E80.1) The diagnosis of porphyria was made by a business analysis consultant at [facility]. He affirms that if he goes [...] 10 pounds. He has been referred to [facility] spine and sports rehabilitation medicine [...] 01/15/2023 PSA, TOTAL 09/15/2022 CBC w DIFF 09/15/2022 CBC w DIFF 09/23/2023 CBC w DIFF 01/15/2023 XR LUMBAR SPINE 09/23/2023 VITAMIN D 25-OH TOTAL 09/15/2022 CBC WITH AUTO DIFF 10/28/2024 CBC WITH AUTO DIFF 05/23/2024 Lipid Panel 05/23/2024 Lipid Panel 09/23/2023 Lipid Panel 10/28/2024 US abdomen complete 11/29/2024 XR thoracic spine 3V 11/27/2023 Routine Culture 02/14/2025 Routine Culture 02/09/2024 Routine Culture 01/10/2025 Next Appt Details Provider Name:Ashish Huertas, 02/28/2025 03:30:00 PM, [address] [place] [address] [address] [place], [place], [address], Provider Name:Ashish Huertas, 10/31/2025 02:00:00 PM, [address] [place] [address] JENNIFER SEGAL, [place], [address], Insurance Providers Payer Name Payer Address Payer Phone Subscriber Number Group Number Insured Name Patient Relationship to Insured Coverage Start Date Coverage End Date [facility] [address] [place], [place] [phone] [id number] Leti, Sid Self - patient is the insured [address] [place] [address] [id number] Sid Landeros Self - patient is the insured Medical (General) History Medical History History ICD Code COPD (chronic obstructive pulmonary dise ase) J44.9 Hypertension I10 Erectile dysfunction Peripheral vascular disease Environmental allergies History of repaired pilonidal cyst Excised lipoma, left triceps, age 8 Porphyria cutanea [place], Dr. Brady, [facility] Tobacco dependence Covid19 infection 2021 Lumbar radiculopathy [...] Date(Month/Year) No history Arterial Bipass 05/2022 Colonoscopy, [facility], Dr. Ramos Fracture of 2 fingers Repair of pilonidal cyst Excision of lipoma, left triceps, age 8 Esophagogastricduodoscopy Femoral -popliteal arterial bypass [place] [place]22 Hospitalization History Reason Date(Month/Year) No history
--- OUTSIDE RECORDS SUMMARY | 2025-02-14 17:06 | XMS_ITS ---
Author Organization Ashish Huertas III, MD Address [address] [facility] [place] [place] [address] Care Team Providers Care Loom Tuner Name Role Phone Ashish Huertas Primary Care Provider Allergies Allergen (clinical drug ingredient) Drug/Non Drug Allergy documented on EMR Reaction Allergy Type Onset Date Status doxycycline Doxycycline Unknown Drug Allergy Act henrry REASON FOR VISIT New Concern, bilateral ear drainage x weeks Medications Medication SIG (Take, Route, Frequency, Duration) Notes Start Date End Date Status Sulfamethoxazole-Trimethop rim 800-160 MG 1 tablet Orally twice a day for 14 days 02/14/2025 04/11/2025 Active Clopidogrel Bisulfate 75 MG 1 tablet Orally Once a day 08/02/2024 Active Sildenafil Citrate 100 MG 1 tablet as ne eded Orally Once a day 10/28/2024 Active Losartan Potassium 25 MG 1 tablet Orally Once a day 01/10/2025 Active amLODIPine Besylate 10 MG 1 tablet Orall y Once a day for 90 days Active Rosuvastatin Calcium 20 MG 1 tablet Oral ly Once a day Active Combivent Respimat 20-100 MCG/ACT 1 puff as needed Inhalation every 6 hrs Active Ibuprofen 800 MG Oral Act henrry Symbicort 160-4.5 MCG/ACT 2 puffs Inhala tion Twice a day Active Pantoprazole Sodium 40 MG one tablet miguel angel ly Orally Once a day 10/04/2024 Active Social History Tobacco Use: Social History [...] e smoker (1-9 cigs/day) Vital Signs Temperature 98.1 degrees Fahrenheit 02/15/20 25 Blood pressure systolic 110 mm Hg 02/15/20 25 Blood pressure diastolic 80 mm Hg 025 Heart Rate 98 /min 02/14/2025 Height 70 in 02/14/2025 Weight 167 lbs 02/14/2025 BMI 23.96 kg/m2 02/14/2025 Encounters Encounter Location Date Provider Diagnosis Ashish Huertas III, MD [address] [place] [address] [place] [address] 02/14/2025 Ashish Huertas Otorrhea of right ear H92.11 Assessments Encounter Date Diagnosis (ICD Code) Assessment Notes Treatment Notes Treatment Clinical Notes 02/14/2025 Otorrhea of right ear (ICD-10 - H92.11) Plan Of Treatment Medication Medication Name Sig Start Date Stop Date Notes Sulfamethoxazole-Trimethopri m 800-160 MG 1 tablet Orally twice a day for 14 days 02/14/2025 04/11/2025 Pending Test Test Name Order Date Routine Culture 02/14/2025 Next Appt Details Follow Up: As Scheduled, Elisabet son: OV Provider Name:Ashish Huertas, 02/28/2025 03:30:00 PM, [address] [place] [address] [address], [place], [address], Provider Name:Ashish Huertas, 10/31/2025 02:00:00 PM, [address] [place] [address] [address], [place], [address], Progress Notes * Sid LANDEROS MDOB: 2 (64 yo M)Acc No.[id number]:02/14/2025 Progress Notes Patient:?iSd LANDEROS Provider:?Ashish Huertas MD :1960???Age:64 Y???Sex:Male Danny e:02/14/2025 Address:[address] [place] [address], [id number] Subjective: * Chief Complaints: * ???1. New Concern. 2. Bilate ral ear drainage x weeks. * HPI: ???v:? old c and s s. aureus sens to bactgrim. * Medical History:?COPD (chron ic obstructive pulmonary disease), Hypertension, Erectile dysfunction, Peripheral vascular disease, Environmental allergies, History of repaired pilonidal cyst, Excised lipoma, left triceps, age 8, Porphyria cutanea tarda, Dr. Brady, [facility], Tobacco dependence, Covid19 infection 2021, [...] * Surgical History:?Femoral [place] [place], Esophagogastricduodoscopy , Excision of lipoma, left triceps, age 8 , Repair of pilonidal cyst , Fracture of 2 fingers , Colonoscopy, [facility], Dr. Ramos , Arterial Bipass 05/2022, No history . * Hospitalization/Major Diagno stic Procedure:?No history . * Social History:?Tobacco Use:?Tobacco Control (Standard)?Tobacco use:?Current [...] has reduced his smoking significantly. * Medications:?Taking Pantopra zole Sodium 40 MG Tablet Delayed Release one tablet daily Orally Once a day , Taking Rosuvastatin Calcium 20 MG Tablet 1 tablet Orally Once a day , Taking Combivent Respimat 20-100 MCG/ACT Aerosol Solution 1 puff as needed Inhalation every 6 hrs , Taking Ibuprofen 800 MG Tablet Oral , Taking Symbicort 160-4.5 MCG/ACT Aerosol 2 puffs Inhalation Twice a day , Taking Clopidogrel Bisulfate 75 MG Tablet 1 tablet Orally Once a day , Taking Sildenafil Citrate 100 MG Tablet 1 tablet as needed Orally Once a day , Taking Losartan Potassium 25 MG Tablet 1 tablet Orally Once a day , Taking amLODIPine Besylate 10 MG Tablet 1 tablet Orally Once a day , Medication List reviewed and reconciled with the patient * Allergies:?Doxycycline. Objective: * Vitals:?Ht: 70, Wt: 167, BMI :23.96, BP: 110/80, HR: 98, Temp: 98.1, Ht-cm: 177.8, Wt-k.75. Assessment: * Assessment: 1.?Otorrhea of right ear - H 92.11??? Plan: * Treatment: 2.?Others? Start Sulfamethoxazole-Trimethoprim Tablet, 800-160 MG, 1 tablet, Orally, twice a day, 14 days, 28 Tablet, Refills 3.?? * Follow Up:?As Scheduled (Elisabet son: OV) * Images: * The named appointment provid er may or may not be the originator of this progress note, and it is not deemed complete until electronically signed by the appointment provider. Sign off status: Pending * Provider:?Ashish Huertas MD Date:?01/27 Generated for Vanessa rodriguez/Namita/Lesly on:?02/14/2025 05:06 PM EDT
--- OUTSIDE RECORDS SUMMARY | 2025-02-14 17:06 | XMS_ITS | Continuity of Care Document ---
Author Name [facility] Organization [facility] Care Team Providers Care Piano Player Name Role Phone [facility] Unavailable Unavailable Problems Combined list of problems [...] [facility] Exposure to potentially hazardous substance ([facility] [id number]) Active Condition Dec 30 Entered By: GRACE [...] RIZO Comment: diagnosed 2016 , Dr Witt [facility] History of colonoscopy Active Condition Dec 24, 2024 Entered By: MICHAEL BOSWELL Comment: [facility], Dr. Ramos- 2020- [facility] [...] [facility] Diagnosis: ICD-10-CM I10 Essential (primary) hypertension Active Diagnosis [facility] Diagnosis: ICD-10-CM [...] NEEDED RESPIR ATORY (INHAL ATION) HOLD 12/30/2025 [id number] WILFREDO WALKER 2024 3 [facility] AMLODIPINE BESYLATE 10MG TAB TAKE ONE TABLET BY MOUTH ONCE DAILY FOR BLOOD PRESSURE /HEART, DO NOT TAKE WITH GRAPEFRU IT JUICE ORAL HOLD 12/30/2025 [id number] 5 [facility]ED[facility] WALKER 2024 90 [facility] ASPIRIN 81MG TAB,EC TAKE ONE TABLET BY MOUTH ONCE DAILY TO PREVENT STROKE/H EART ATTACK ORAL HOLD 12/30/2025 [id number] 5 WILFREDO WALKER 2024 120 [facility] CLOPIDOGREL BISULFATE 75MG TAB TAKE ONE TABLET BY MOUTH ONCE DAILY ORAL HOLD 12/30/2025 [id number] 5 WILFREDO WALKER 2024 90 [facility] FLUTICASONE 250MCG/SALM ETEROL 50MCG INHL,ORAL,D ISKUS,60 INHALE 1 PUFF BY MOUTH TWICE DAILY - RINSE MOUTH AFTER USE RESPIR ATORY (INHAL ATION) HOLD 12/30/2025 [id number] 5 WILFREDO WALKER 2024 3 [facility] IBUPROFEN 800MG TAB TAKE ONE TABLET BY MOUTH THREE TIMES DAILY WITH MEALS TAKE WITH FOOD ORAL HOLD 12/30/2025 [id number] 5 WILFREDO WALKER 2024 90 [facility] [place] LOSARTAN 25MG TAB TAKE ONE TABLET BY MOUTH ONCE DAILY ORAL ACTIVE WILFREDO WALKER 2024 [facility] NICOTINE 10MG/ML SOLN,NASAL SPRAY INSTILL 1 SPRAY INTO EACH NOSTRIL SIX TIMES A DAY NEEDED FOR SMOKING CESSATIO N NASAL HOLD 12/30/2025 [id number] 5 KALENWILFREDO SMITH 2024 30 [facility] PANTOPRAZOL E NA 40MG TAB,EC TAKE ONE TABLET BY MOUTH EVERY MORNING 30 MINUTES BEFORE BREAKFAS T ORAL HOLD 12/30/2025 [id number] 5 KALENWILFREDO SMITH 2024 90 [facility] ROSUVASTATI N CA 40MG TAB TAKE ONE-HALF TABLET BY MOUTH ONCE DAILY FOR CHOLESTE ROL ORAL HOLD 12/30/2025 [id number] 5 [facility]24 [facility] SILDENAFIL CITRATE 100MG TAB TAKE ONE TABLET BY MOUTH NEEDED TAKE 1 HOUR PRIOR TO SEXUAL ACTIVITY ORAL HOLD 12/30/2025 [id number] 5 [facility] 2024 18 [facility] [employer] [facility] Allergies, Adverse Reactions, Alerts Combined list of allergies from Department of Defense and Veterans Affairs facilities. It does not include entries that were removed or entered in error. Substance Category Reaction Severity Reaction type Status Date Reported Comments Source DOXYCYCLINE Propensity to adverse reactions to drug (finding) Urticaria active 5 [facility] Immunizations Combined list of available immunizations from the Department of Defense and Veterans Affairs facilities. Immunization Series Date Given Administered By Site Reaction Lot Number CVX Code Drug Screen Room Operator Status Comments Source COVID-19 (MODERNA), MRNA, LNP-S, PF, 100 MCG/0.5ML DOSE OR 50 MCG/0.25ML DOSE 2 2020 207 complet ed HISTORICA L INFORMATI ON - FROM OTHER REGISTRY, COVID 19 Moderna Mfr: MODERNA [employer] [facility] COVID-19 (MODERNA), MRNA, LNP-S, PF, 100 MCG/0.5ML DOSE OR 50 MCG/0.25ML DOSE 1 2020 207 complet ed HISTORICA L INFORMATI ON - FROM OTHER REGISTRY, COVID 19 Moderna Mfr: MODERNA [employer] [facility] [...] Value Date Comments Source SYSTOLIC BLOOD PRESSURE 128 02/09/20 25 09:18:29 [facility] DIASTOLIC BLOOD PRESSURE 72 025 09:18:29 [facility] PULSE OXIMETRY 96 02/08/2025 09:18:29 [facility] WEIGHT 169 02/08/2025 09:18:29 [facility] BMI 24 kg/m2 02/08/2025 09:18:29 [facility] PULSE 92 02/08/2025 09:18:29 [facility] SYSTOLIC BLOOD PRESSURE 148 12/30/19 25 08:51:34 [...] Disposition Source [facility] Outpatient Encounter [id number] 12/19 [facility] En[facility] [id number] 12/24 [facility] OFFICE O/P [place] 60 MIN [id number] Diagnos is: ICD-10- CM I73.9 Periphe ral vascula r disease , unspeci fied EDYTA SPANGLER 12/29 [facility] En[facility] [id number] 01/03 [facility] En[facility] [id number] 01/04 [facility] En[facility] [id number] ANAHY HUNTLEY 01/09 [facility] Outpatient Encounter [id number] 01/31 [place] [facility] [place] [facility] [facility] Outpatient Encounter [id number] 02/06 [place] [facility] [place] [facility] [facility] OFF/OP EST JANUARY X REQ PHY/QHP [id number] Diagnos is: ICD-10- CM I10 Essenti al (primar y) hyperte nspaulo PARI NICOLEE SIMEON L 02/08 [facility] Social History Combined list of available smoking, tobacco, and other social history from Department of Defense and Veterans Affairs facilities. Social History Type Response Date Comment Sourc e Tobacco smoking status NHIS AK-TOBACCO USE EVERY DAY CIGARETTES 12/24/2024 [facility] History of tobacco use AK-TOBACCO NEVER USED OTHER TYPE 12/24/2024 [facility] Plan of Care List of future care activities from Department of Veterans Affairs facilities. Additional future care activities may be listed in the Assessment and Plan section. Date/Time Care Activity Care Activity Detail Facili ty 06/27/2025 AMBULATORY - MEDICINE AMBULATORY - MEDICI [facility] Advance Directives List of completed, amended, or rescinded Advance Directives on record at Department of Veterans Affairs facilities. An actual copy of the Directive is not included. Date Advance Directive Provider Source 12/29/2024 ADVANCE DIRECTIVE [facility]
--- OUTSIDE RECORDS SUMMARY | 2025-02-14 17:07 | XMS_ITS ---
Author Organization Ashish Huertas III, MD Address [address] [place] [address] [place] [address] Care Team Providers Care Firearms Specialist Name Role Phone Ashish Huertas Primary Care Provider REASON FOR VISIT Message Social History Sex Assigned At : Social History Observation Description Sex Assigned At Male Encounters Encounter Location Date Provider Diagnosis Ashish Huertas III, MD [address] [place] [address] [place] [address] 01/24/2025 Ashish Huertas Plan Of Treatment Next Appt Details Provider Name:Ashish Huertas, 02/28/2025 03:30:00 PM, [address] [place] [address] [place], [address], Provider Name:Ashish Huertas, 10/31/2025 02:00:00 PM, [address] [place] [address] [place], [address], Progress Notes * Sid LANDEROS MDOB: 2 (64 yo M)Acc No.[id number]:01/24/2025 Patient:?Sid LANDEROS :1960???Age:64 Y???Sex:Male Address:[address] [place], [address] * true * Date:? Generated for Printi michael/Namita/eTransmitting on:?02/14/2025 05:06 PM EDT
--- OUTSIDE RECORDS SUMMARY | 2025-02-14 17:07 | XMS_ITS ---
Author Organization Ashish Huertas III, MD Address [address] [facility] [place] [place] [address] Care Team Providers Care Power Plant Inspector Name Role Phone Ashish Huertas Primary Care [...] 01/10/2025 Active Mupirocin 2 % 1 application Respiratory Therapist Assistant ally Twice a day 11/20/2023 Active Clopidogrel [...] Problem Status W/U Status Risk Notes Problem [id number] Viral syndrome (B34.9) Active confirmed I'm going to speak to him on a daily basis because of the risk of progression of respiratory disease. He has continued to smoke and has COPD. He will continue to use his inhalers as directed. If necessary he will be given oral prednisone and an antibiotic. Encounters Encounter Location Date Provider Diagnosis Ashish Huertas III, MD [address] [place] [address] [place] [address] 01/23/2025 Ashish Huertas Viral syndrome B34.9 ; [...] diagnosis of porphyria was made by a company doctor at [facility]. He affirms that if [...] day 2024 Mupirocin 2 % 1 application Respiratory Therapist Assistant ally Twice a day 11/20/2023 Clopidogrel Bisulfate [...] Next Appt Details Follow Up: as scheduled, Elisabet son: OV as scheduled Provider Name:Ashish Huertas, 02/28/2025 03:30:00 PM, [address] [place] [address] [address], [place], [address], Provider Name:Ashish Huertas, 10/31/2025 02:00:00 PM, [address] [place] [address] [address], [place], [address], Progress Notes * Sid LANDEROS MDOB: 2 (64 yo M)Acc No.[id number]:01/23/2025 Patient:?Sid LANDEROS Provider:?Ashish Huertas MD :1960???Age:64 Y???Sex:Male Danny e:01/23/2025 Address:[address] [place] [address] [place]-[phone] Subjective: * Chief Complaints: * ???Viral syndromeOver [...] rendering services:?{...} [address] [facility] [address] ?Location of patient:?address listed in demographics for [...] * Surgical History:?[place]oral [place] [place]ophagog[place]duodoscopy Excision of lipoma, left triceps, age 8 Repair of pilonidal cyst Fracture of 2 fingers Colonoscopy, [facility], Dr. Ramos Arterial Bipass 05/2022No history [...] diagnosis of porphyria was made by a company doctor at [facility]. He affirms that if [...] for surgery.??? Plan: * Treatment: * Procedure Codes:?50744 SYNCH AUDIO-ONLY EST SF 10 * Preventive [...] least 30 mins.? * Follow Up:?as scheduled (Flanagan son: OV as scheduled) * Images: * Sign off status: Completed true * Provider:?Ashish Huertas MD Date:?12/28 Generated for Vanessa rodriguez/Namita/Lesly on:?02/14/2025 05:06 PM EDT History and Physical Notes * HPI (History of Present Illness) Category Sub-Category Detail Notes [facility] {...} [address] [facility] [address] [place] [address] Location of patient:: address listed in demographics [...]
--- OUTSIDE RECORDS SUMMARY | 2025-02-14 17:07 | XMS_ITS ---
Author Name [facility] [place] [facility] [place] Address [address] [place] [address] Care Team Providers Care Machine Ii Cutter Name Role Phone YAKELIN RITCHIE Primary Care Provider Unavailable Selected Encounter This section includes the information on record at [place] for the Encounter. Date/Time Encounter Type Encounter Description Reason Provider Source February 08, 2025 09:00 AM OFF/OP EST JANUARY X REQ PHY/QHP PRIMARY CARE/MEDICINE ICD-10-CM I10 Essential (primary) hypertension MILLIE NICOLE E Encounter Template Text not used by [place] Assessments - Encounter Diagnoses This section includes the primary and secondary diagnoses documented for the Encounter. Date/Time Primary/Secondary Diagnosis Diagnosis Name Provider Source February 08, 2025 09:33 AM PRIMARY Essential (primary) hypertension [facility] Plan of Treatment: Future Appointments (+ 6 months) and Future Tests (+/- 45 days) The Plan of Treatment section includes future care activities for the patient from all [place] treatmentfacilities. This section includes future appointments and future orders which are active, pending or scheduled. Future Appointments This section includes appointments that were scheduled to occur 6 months from the date of the Encounter, up to a maximum of 20 appointments. The data comes from all [place] treatment facilities. Appointment Date/Time Appointment Type Appointme nt Facility Name Jun 27, 2025 09:00 AM [facility] Active, Pending, and Scheduled Orders This section includes a listing of several types of active, pending, and scheduled orders, including clinic medications orders, diagnostic test orders, procedure orders and consult orders; where the start date of the order is 45 days before the date of the Encounter or 45 days after the date of theEncounter. The data comes from all [place] treatment facilities. Test Date/Time Test Type Test Details Facility Name Dec 29, 2024 12:00 AM Laboratory - Chemi stry Order LIVER FUNCTION BLOOD (SST-SERUM) [facility] Dec 29, 2024 12:00 AM Laboratory - Chemi stry Order LIPID PANEL FASTING BLOOD (SST-SERUM) [facility] Dec 29, 2024 12:00 AM Laboratory - Chemi stry Order CBC AND DIFF (AUTO) BLOOD (LAV-BLOOD) [facility] Dec 29, 2024 12:00 AM Laboratory - Chemi stry Order FERRITIN BLOOD (SST-SERUM) [facility] Dec 29, 2024 12:00 AM Laboratory - Chemi stry Order PSA BLOOD (SST-SERUM) [facility] Dec 29, 2024 12:00 AM Laboratory - Chemi stry Order BASIC METABOLIC PANEL (fasting) BLOOD (SST-SERUM) [facility] Dec 29, 2024 12:00 AM Laboratory - Chemi stry Order HEPATITIS B SURFACE ANTIBODY (HBsAb)-WH BLOOD (SST-SERUM) [facility] Dec 29, 2024 12:00 AM Laboratory - Chemi stry Order HEPATITIS C ANTIBODY (HCV)-ARC BLOOD (MARBLED-TOP SERUM) [facility] Dec 29, 2024 12:00 AM Laboratory - Chemi stry Order HIV 1&2 Ag/Ab SCREEN BLOOD (SST-SERUM) [facility] Vital Signs: All taken on the encounter date This section contains inpatient and outpatient Vital Signs collected on the date of the Encounter. Date/Time Temperature Pulse Blood Pressure Respiratory Rate SP02 Pain Height Weight Body Mass Index Source February 08, 2025 09:18 AM 92 128/72 96 169 24 [facility] Social History: Smoking Status (Most current) and Tobacco Use (All prior to encounter date) This section includes the most current, and the historical, smoking and tobacco- related health factors from the [place] facility where the Encounter took place. Current Smoking Status This section includes the most current smoking, or tobacco-related health factor, from the [place] facility where the Encounter took place. Date/Time Current Smoking Status Comment Jenna ity Dec 24, 2024 11:02 AM VA-TOBACCO USE MALLORY RY DAY CIGARETTES [facility] Tobacco Use History This section includes a history of the smoking, or tobacco-related health factors, that were collected on or before the date of the Encounter. The data comes from the [place] facility where the Encounter took place. Date/Time Smoking Status/Tobacco Use Comment F acility Dec 24, 2024 11:02 AM VA-TOBACCO SCREEN FOLLOW-UP [facility] Dec 24, 2024 11:02 AM VA-TOBACCO USE ADVICE [facility] Dec 24, 2024 11:02 AM VA-TOBACCO USE TOOL CHECKER NO [place] [facility] [place] [facility] Dec 24, 2024 11:02 AM VA-TOBACCO USE MALLORY RY DAY CIGARETTES [place] [facility] [place] [facility] Dec 24, 2024 11:02 AM VA-TOBACCO USE MED NO [facility] Advance Directives: All historical and current Section Date Range: From patient's date of to the date document was created. This section includes ALL of a patient's completed or amended [place] Advance and Rescinded Directives. The entries below indicate that a directive exists for the patient, but an actual copy is not included with this document. The data comes from all [place] facilities. Date Advance Directives Provider Source Dec 29, 2024 ADVANCE DIRECTIVE SENIA HUNTLEY [place] CNT RL [facility] Encounter Notes: All associated encounter notes This section contains the clinical notes associated to the Encounter. Date/Time Encounter Note(s) Provider Source February 08, 2025 09:20 AM PRIMARY CARE OUTPA TIENT NOTE: LOCAL TITLE: AMBULATORY/OUTPATIENT CARE NOTE STANDARD TITLE: PRIMARY CARE OUTPATIENT NOTE DATE OF NOTE: FEBRUARY 08, 2025@09:20 ENTRY DATE: FEBRUARY 08, 2025@09:20:28 AUTHOR: MILLIE NICOLE COSIGNER: URGENCY: STATUS: COMPLETED F: Nursing Clinic/Blood pressure check D: presents to the Primary care clinic for a blood pressure check per PCP/Yakelin Ritchie PA-C. Prince has history of hypertension. BLOOD PRESSURE READINGS BP- 132/74 5 minutes later- 128/72 P- 92 BLOOD PRESSURE MEDICATIONS: Amlodipine 10mg 1 PO daily New from outside [facility]- Losartan Potassium 25mg 1 PO daily Any changes or additions to allergies/adverse reactions. No Any medication changes since last appointment. Yes- Losartan Patient reports adherence to medication regimen. Yes Patient is currently prescribed blood pressure medication. Date of last dose: 02/08/25 Approx. time of last dose: 07:00 Diet: No added salt Physical Activity: Walking Tobacco: 5-8 cigarettes daily ETOH: Occasionally Caffeine: 2 cups of coffee [place] saw Dr. Raman Fletcher, [facility], 2-3 weeks ago. says that he did not like Lagrange's elevated blood pressures. Dr. Fletcher added Losartan Potassium 25mg 1 PO daily in addition to the Amlodipine 10mg 1 PO daily that he has been taking. R: RTC 06/27@09:00 for PCP appt or PRN /silke/ MILLIE NICOLE, MSN, RN, CNL PRIMARY CARE TEAM NURSE Signed: 02/08/2025 09:33 Receipt Acknowledged By: 02/08/2025 11:31 /silke/ ALLEN MCCONNELL PA-C, [facility] L [facility]
== END 2025-02-14 17:04 | disposition home or self-care (01) ==
LOC: HO.LNP 17:03
PROVIDERS: Visit Provider Internal Medicine Medical Oncology
DX: H92.11 Otorrhea, right ear (principal)
CPT/HCPCS: 87070; 87077; 87205

== ENCOUNTER 2025-03-13 11:25 | Outpatient (AMB) | payer BC, OTHER, SELFPAY ==
[2025-03-13 11:33] VITALS: BP 124/60; PULSE 93; O2SAT 98; BMI 23.4
--- NOTE | 2025-03-13 11:33 | MHC.OFFVIS ---
Vital Signs 03/13/25 11:33 Height 5 ft 10 in Weight 163 lb 2.273 oz BMI 23.4 BP 124/60 Blood Pressure Location Lt brachial Position Sitting Pulse 93 Pulse Source Pulse Oximeter Pulse Oximetry (%) 98 Oxygen Delivery Method Room Air Intake Visit Reasons: sleep study f/u Intake Note: pt is here for follow up, no sleep study yet, Mobile Application Architect Required: No Allergies doxycycline Allergy (Verified 03/13/25 11:58) Hives nabumetone Adverse Reaction (Unknown, Verified 03/13/25 11:58) green stools Medication List - Last Reconciled 03/13/25 by Natalie Lino MD amlodipine 10 mg PO DAILY 90 days aspirin (Adult Aspirin Regimen) 81 mg PO DAILY bisacodyl 20 mg (4 x 5 mg) PO ONCE 1 day budesonide-formoterol 160-4.5 mcg/actuation (Symbicort) 2 inhalations PO BID clopidogrel 75 mg PO DAILY codeine-guaifenesin 10-100 mg/5 mL 10 mL PO Q4-6H PRN 1 week ibuprofen 800 mg PO Q8H PRN 90 days ipratropium-albuterol 20-100 mcg/actuation (Combivent Respimat) 1 puff inhalation Q6H PRN 90 days losartan 25 mg PO DAILY nicotine 10 mg inhalation 3XD 30 days nicotine 1 spray intranasal TID 30 days pantoprazole 40 mg PO DAILY polyethylene glycol 3350 (Miralax) 238 grams PO ONCE rosuvastatin 20 mg PO DAILY sildenafil 100 mg PO DAILY PRN Do you need a note to return to daycare/school/sports/work: No HPI HPI sleep study f/u: Details: 64 YEARS OLD GENTLEMAN IS HERE FOR HIS FOLLOW-UP FOR COPD AND ALSO SLEEP APNEA. HIS COPD IS STAYING STABLE. USING SYMBICORT 160-4.52 PUFFS B.I.D. AND ALBUTEROL HFA P.R.N. WHICH HE DOES NOT NEED TO USE MUCH. FAR SMOKING HE IS BACK TO SMOKING ABOUT 10 CIGARETTES A DAY. CURRENTLY NOT USING NICOTINE. HE IS WAITING TO HAVE THE SLEEP STUDY WHICH WILL BE IN ABOUT 4 WEEKS FROM NOW. [facility] Medical History Snoring Excessive daytime sleepiness Bronchitis Abnormal LFTs ETOH abuse Hereditary hemochromatosis Atherosclerotic cardiovascular disease Bilateral carotid artery stenosis PAD (peripheral artery disease) Murmur HTN (hypertension) Hyperlipidemia COPD (chronic obstructive pulmonary disease) SOB (shortness of breath) Allergic rhinitis Nicotine dependence, cigarettes, uncomplicated GERD (gastroesophageal reflux disease) Tubular adenoma of colon Porphyria cutanea tarda Arthritis Surgical History History of femoropopliteal bypass History of femoropopliteal bypass (11/02/23) S/P angiogram of extremity History of colonoscopy History of esophagogastroduodenoscopy History of lipoma History of skin graft History of removal of cyst History of foot surgery Family History Father Diabetes Stroke Hypertension Mother Chronic mental illness Family/Other FH: mental illness Social History Household Members: Spouse Housing: House Are you a primary career portals teacher to a significant other at home: No Do you presently have visiting nurse or other home services: No 75 years or older and lives alone: No Alcohol intake: current Alcohol intake frequency: a few times a month Alcohol type: beer Comment: residual pain in left foot, but much improved and tolerable per patient. 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 occupational exposures/hazards: No Cognitive needs: No Hearing needs: No Vision needs: Yes Review of Systems Const All systems reviewed & are unremarkable except as noted in HPI and below Eyes Reports no additional complaints ENT Reports no additional complaints Card Denies chest pain, Denies irregular heart rhythm and Denies leg edema Resp Reports as per HPI GI Reports no additional complaints Reports erectile dysfunction Musc Reports no additional complaints Skin/Breast Reports system reviewed and no additional complaints, except as documented Neuro Reports no additional complaints Psych Reports no additional complaints Endo Reports no additional complaints Terrell/Lymph Reports other (h/o polycythemia ) Physical Exam Vital Signs: Last Vital Signs Pulse 93 03/13/25 11:33 BP 124/60 03/13/25 11:33 Pulse Ox 98 06/16/25 11:33 Oxygen Delivery Method Room Air 03/13/25 11:33 BMI result Body Mass Index 23.4 Const General: comfortable, no acute distress, alert and awake Orientation/consciousness: patient oriented x3 HEENT Head: Yes normal to inspection General nose exam: No nasal polyps present, No nasal discharge present and Other nasal findings present (MODERATE AMOUNT OF NASAL CONGESTION ESPECIALLY IN LEFT NARE ) Face and sinus: Yes sinuses nontender Mouth: oropharynx normal Teeth and gingiva: other (There is a mild degree of retrognathia of the lower jaw.) Throat: Yes posterior oropharynx normal Eyes General: appearance normal, both eyes and all related structures Neck Neck: Yes normal visual inspection, Yes no lymphadenopathy, Yes trachea midline and Yes no JVD Thyroid: Thyroid normal Chest Chest palpation & inspection: normal inspection of the chest, normal palpation of entire chest wall and no tenderness Resp Other: Percussion note resonant, breath sounds are distant with prolonged expiratory phase. He has a few expiratory wheezes scattered on both sides. Cardio Palpation: normal PMI Rate: regular rate Rhythm: regular rhythm Heart sounds: no gallops and no murmurs GI Palpation (GI): Soft to palpation, nontender, No hepatosplenomegaly present and no masses Auscultation: normal bowel sounds Back/Spine/Pelvis Thoracic/Lumbar Spine: thoracic and lumbar spine normal to inspection Skin General skin exam: no rashes or lesions noted Neuro General: patient oriented x3 and no focal motor deficits Cranial nerves: Yes CN's II-XII intact bilaterally Extrem General: Yes normal to inspection, Yes no clubbing, cyanosis or edema and Yes no calf tenderness Psych Appearance: grossly normal and well kempt Speech and movement: Normal speech and movement present Assessment & Plan Assessment & Plan (1) Nicotine dependence, cigarettes, uncomplicated: Comment: (current smoker, onset 17yo, 1ppd x 46yrs, had cut it down to few cigarettes a day but now in the past few months has gone back to 1 pack a day, Now he claims that he smokes about 10 cigarettes a day, he stopped using nicotine spray. Code(s): F17.210 - Nicotine dependence, cigarettes, uncomplicated Category: Medical Plan: Again talked to him about quitting smoking completely. He prefers to use nicotine by spray and I told him to start using it again. Also educated that he needs to have annual lung scan by LDCT . (2) COPD (chronic obstructive pulmonary disease): Comment: COPD is moderately severe, secondary to smoking, Is relatively stable at this time, but he becomes symptomatic when doing any heavy physical work. He is prone to have recurrent acute exacerbation probably due to nonspecific tracheobronchitis. Code(s): J44.9 - Chronic obstructive pulmonary disease, unspecified Category: Medical Qualifiers: COPD type: chronic bronchitis Chronic bronchitis type: simple Qualified Code(s): J41.0 - Simple chronic bronchitis Plan: Continue to use SYMBICORT 160-4.52 PUFFS B.I.D. COMBIVENT RESPIMAT 1 INHALATION Q 4-6 HOURS ONLY P.R.N.. (3) Excessive daytime sleepiness: Comment: Elma sleepiness scale is 10. Patient does have history of excessive snoring and awakenings at night with gasping like feeling. HOME-BASED SLEEP STUDY HAS BEEN ORDERED AND HE IS STILL WAITING FOR THAT. Code(s): G47.19 - Other hypersomnia Category: Medical Plan: HE HAS APPOINTMENT FOR HOME-BASED SLEEP STUDY ON APRIL 10. I TOLD HIM THAT AFTER WE HAVE THE RESULTS WE WILL LET HIM KNOW WHETHER HE NEEDS CPAP OR NOT. Coding Level of Care Code Est Pt Level 3 (36429) Diagnoses Nicotine dependence, cigarettes, uncomplicated F17.210 Simple chronic bronchitis J41.0 COPD type: chronic bronchitis Chronic bronchitis type: simple Excessive daytime sleepiness G47.19
--- OUTSIDE RECORDS SUMMARY | 2025-03-13 13:01 | XMS_ITS ---
Author Organization Ashish Huertas III, MD Address [address] [facility] [place] [place] [address] Care Team Providers Care Functional Support Analyst Name Role Phone Ashish Huertas Primary Care Provider [phone] Allergies Allergen (clinical drug ingredient) Drug/Non Drug [...] henrry Pantoprazole Sodium 40 MG one tablet migule angel ly Orally Once a day 10/04/2024 [...] Problem Status W/U Status Risk Notes Problem [id number] Ear infection (H66.90) Active confirmed He has complete d a course of antibiotics for the skin inflammation on each year. A repeat culture grew only Tereza. The appearance is much improved. 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 (H25.093) [...] Provider Diagnosis Ashish Huertas III, MD [address] [place] [address] [place] [address] 02/28/2025 Ashish Huertas BPH (benign prostati c [...] Provider Name:Ashish Huertas, 06/02/2025 09:00:00 AM, [address] [facility] [address], [place], [phone], Provider Name:Ashish Huertas, 10/31/2025 02:00:00 PM, [address] [facility] [address], [place], [address], Progress Notes * Sid LANDEROS MDOB: 2 (64 yo M)Acc No.[id number]:02/28/2025 Patient:?Sid LANDEROS Provider:?Ashish Huertas MD :1960???Age:64 Y???Sex:Male Danny e:02/28/2025 Address:[address] [place] [address] [place], [id number] Subjective: * Chief Complaints: * ???Medical clearance for db geryBilateral cataractsLeft eye cataract surgery March 09, 2025Right eye cataract surgery March 23OPDHypertensionTobacco dependencePeripheral arterial diseaseLumbar radiculopathyHypertension * HPI: ???COVID-19 Screening:?Questions?Have you had any new onset fever, chills, cough, congestion, sore throat, shortness of breath, muscle aches??No * ROS:?General/Constitutional:?pain?only normal aches and pains.?Chills?denies.?Fatigue?admits.?Fever?denies.?ENT:?Decreased hearing?denies.?Respiratory:?Cough?non-productive.?Cardiovascular:?Chest pain with exertion?denies.?Dyspnea on exertion?with prolonged activity.?Shortness of breath?with exertion.?Gastrointestinal:?Constipation?occasional.?Decreased appetite?denies.?Diarrhea?denies.?Heartburn?denies.?Nausea?denies.?Rectal bleeding?denies.?Vomiting?denies.?Hematology:?bruising?denies.?petechiae?denies.?Swollen glands?none have been noted.?Genitourinary:?Frequent urination?once a night.?Musculoskeletal:?Muscle aches?denies.?Painful joints?denies.?Sciatica?denies.?Weakness?denies.?Skin:?Itching?denies.?Rash?denies.?Skin lesion(s)?denies.?Neurologic:?Difficulty speaking?denies.?Dizziness?denies.?Headache?denies.?Low back pain?denies.?Psychiatric:?Depressed mood?denies.? * Medical History:? * Surgical History:[place]oral [place] [place]Esophagogastricduodoscopy Excision of lipoma, left triceps, age 8 Repair of pilonidal cyst Fracture of 2 fingers Colonoscopy, [facility], Dr. Ramos Arterial Bipass 05/2022No history * Hospitalization/Major Diagno stic Procedure:?No Hospitalization History. * Family History:?Father: dece ased 72 yrs, [...] He has reduced his smoking significantly. * Medications:?TakingSulfameth oxazole-Trimethoprim 800-160 MG Tablet 1 tablet Orally twice [...] ergies Verified] Objective: * Vitals:?Ht: 70, Wt: 165, BMI :23.67, BP: 118/55, HR: 84, Temp: 98.4, Oxygen sat %: 98, Ht-cm: 177.8, Wt-k.84. * Examination: ???General Examination: ?GENERAL APPEARANCE:?pleasant, well nourished, well developed, in no acute distress, calm and relaxed, man.?HEAD:?atraumatic, normocephalic.?EYES:?eomi, perrla, anicteric, conjugate.?EARS:?Slight residual inflammation of the pinnae.?NOSE:?septum intact.?ORAL CAVITY:?normal, unremarkable.?NECK/THYROID:?no jugular venous distention, no [...] sensory exam intact.?PSYCH:?alert, oriented.? Assessment: * Assessment: 1.?Age-related incipient cat aract of both eyes - H25.093 (Primary)???Notes :He is scheduled for cataract extraction sequentially later this month.? I have taken.? A careful history and examined him thoroughly.? There is no contraindication to surgery at this time.? The benefit is great in the risk is small.? He is given medical clearance for both procedures.???2.?BPH (benign prostatic hyperplasia) - N40.0???Notes :He arises from sleep about once a night to urinate.? We have discussed lifestyle modifications he could make to reduce this.???3.?Overweight - E66.3???Notes :His body mass index is now 23.6 and this problem has resolved.???4.?Hyperlipidemia - E78.5???Notes :Comprehensive blood work with a fasting lipid profile is being done periodically.???5.?Ear infection - H66.90???Notes :He has completed a course of antibiotics for the skin inflammation on each year.? A repeat culture grew only Tereza.? The appearance is much improved.???6.?COPD (chronic obstructive pulmonary disease) - J44.9???Notes :His [...] which include lung cancer, COPD, oxygen dependence, etc.??? Plan: * Treatment: 2.?Overweight?LAB: PROFILE, FASTING (COMPREHENSIVE METABOLIC) ?LAB: PSA, TOTAL ?LAB: CBC w DIFF ?LAB: Lipid Panel 3.?Hyperlipidemia?LAB: PROFILE, FASTING (COMPREHENSIVE METABOLIC) ?LAB: PSA, TOTAL ?LAB: CBC w DIFF ?LAB: Lipid Panel 4.?Others? Continue Pantoprazole Sodium Tablet Delayed Release, 40 MG, one tablet daily, Orally, Once a day;?Continue Rosuvastatin Calcium Tablet, 20 MG, 1 tablet, Orally, Once a day;?Continue Combivent Respimat Aerosol Solution, 20-100 MCG/ACT, 1 puff as needed, Inhalation, every 6 hrs;?Continue Ibuprofen Tablet, 800 MG, Oral;?Continue Symbicort Aerosol, 160-4.5 MCG/ACT, 2 puffs, Inhalation, Twice a day;?Continue Clopidogrel Bisulfate Tablet, 75 MG, 1 tablet, Orally, Once a day;?Continue Sildenafil Citrate Tablet, 100 MG, 1 tablet as needed, Orally, Once a day;?Continue Losartan Potassium Tablet, 25 MG, 1 tablet, Orally, Once a day;?Continue amLODIPine Besylate Tablet, 10 MG, 1 tablet, Orally, Once a day;?Continue Sulfamethoxazole-Trimethoprim Tablet, 800-160 MG, 1 tablet, Orally, twice a day.?? * Procedure Codes:?11114 MEASU RE BLOOD OXYGEN LEVEL * Preventive Medicine:? ??Counseling:?Smoking/Tobacco Use?Patient counseled on the dangers of tobacco use and urged to quit.?02/28/2025 ?Patient Lifestyle Goals?Patient wants to quit ?Treatment [...] a plan for quitting smoking.? * Follow Up:?3 Months (Reason: OV) * Images: * Sign off status: Completed true * Provider:?Ashish Huertas MD Date:?11/2024 Generated for Vanessa rodriguez/Namita/Lesly on:?03/13/2025 01:01 PM EDT History and Physical Notes * [...]
== END 2025-03-13 12:07 | disposition home or self-care (01) ==
LOC: HO.HPS 11:26
PROVIDERS: PCP Internal Medicine Medical Oncology; Visit Provider Internal Medicine
DX: F17.210 Nicotine dependence, cigarettes, uncomplicated (principal); J41.0 Simple chronic bronchitis; G47.19 Other hypersomnia
CPT/HCPCS: 99213

== ENCOUNTER 2025-04-06 08:38 | Outpatient (REF) | payer OTHER, SELFPAY ==
--- OUTSIDE RECORDS SUMMARY | 2025-02-28 11:30 | XMS_ITS ---
Author Organization Ashish Huertas III, MD Address [address] [facility] [address] [place] [address] Care Team Providers Care Demurrage Clerk Name Role Phone Ashish Huertas Primary [...] Problem Status W/U Status Risk Notes Problem [id number] Ear infection (H66.90) Active confirmed He has complete d a course of antibiotics for the skin inflammation on each year. A repeat culture grew only Tereza. The appearance is much improved. 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 (H25.093) [...] Date Provider Diagnosis Ashish Huertas III, MD [address] [place] [address] [place] [address] 02/28/2025 Ashish Huertas BPH (benign prostati c [...] Provider Name:Ashish Huertas, 06/02/2025 09:00:00 AM, [address] [facility] [address], [place], [address], Provider Name:Ashish Huertas, 10/31/2025 02:00:00 PM, [address] [place] [address] [address], [place], [address], Progress Notes * Sid LANDEROS MDOB: 2 (64 yo M)Acc No.[id number]:02/28/2025 Patient: Sid COBOS Mili Provider: Frantz Huertas MD :1960 A ge:64 Y S ex:Male Date:02/28/2025 Address:[address] [place] [address] K[place]IN [place]-[id number] Subjective: * Chief Complaints: * M edical [...] Surgical History: F emoral [place]opliteal [place] [place]Esophagogastricduodoscopy Excision of lipoma, left triceps, age 8 Repair of pilonidal cyst Fracture of 2 fingers Colonoscopy, [facility], Dr. Ramos Arterial Bipass 05/2022No history [...] 02/28/2025 Generated for Vanessa rodriguez/Namita/Lesly on: 0 04/06/2025 08:50 AM EDT History and Physical Notes * [...]
--- OUTSIDE RECORDS SUMMARY | 2025-03-13 07:59 | XMS_ITS | Continuity of Care Document ---
Author Name [facility] Organization [facility] Care Team Providers Care Toucher Up Name Role Phone [facility] Unavailable Unavailable Problems Combined list of problems [...] substance ([facility] [id number]) Active Condition Dec 30 Entered By: GRACE [...] RIZO Comment: diagnosed 2016 , Dr Witt [facility] History of colonoscopy Active Condition Dec 24, 2024 Entered By: MICHAEL BOSWELL Comment: [facility], Dr. Ramos- 2020- Needs Colonoscopy ordered [...] NEEDED RESPIR ATORY (INHAL ATION) HOLD 12/30/2025 [id number] WILFREDO WALKER 2024 3 [facility] AMLODIPINE BESYLATE 10MG TAB TAKE ONE TABLET BY MOUTH ONCE DAILY FOR BLOOD PRESSURE /HEART, DO NOT TAKE WITH GRAPEFRU IT JUICE ORAL HOLD 12/30/2025 [id number] 5 WILFREDO WALKER 2024 90 [facility] ASPIRIN 81MG TAB,EC TAKE ONE TABLET BY MOUTH ONCE DAILY TO PREVENT STROKE/H EART ATTACK ORAL HOLD 12/30/2025 [id number] 5 WILFREDO WALKER 2024 120 [facility] CLOPIDOGREL BISULFATE 75MG TAB TAKE ONE TABLET BY MOUTH ONCE DAILY ORAL ACTIVE 12/30/2025 [id number] 5 WILFREDO WALKER 2024 90 [facility] FLUTICASONE 250MCG/SALM ETEROL 50MCG INHL,ORAL,D ISKUS,60 INHALE 1 PUFF BY MOUTH TWICE DAILY - RINSE MOUTH AFTER USE RESPIR ATORY (INHAL ATION) HOLD 12/30/2025 [id number] 5 WILFREDO WALKER 2024 3 [facility] IBUPROFEN 800MG TAB TAKE ONE TABLET BY MOUTH THREE TIMES DAILY WITH MEALS TAKE WITH FOOD ORAL ACTIVE 12/30/2025 [id number] 5 WILFREDO WALKER 2024 90 [facility] LOSARTAN 25MG TAB TAKE ONE TABLET BY MOUTH ONCE DAILY FOR BLOOD PRESSURE /HEART ORAL ACTIVE 03/03/2026 [id number] [address] [facility] 2024 90 [facility] [place] [facility] NICOTINE 10MG/ML SOLN,NASAL SPRAY INSTILL 1 SPRAY INTO EACH NOSTRIL SIX TIMES A DAY NEEDED FOR SMOKING CESSATIO N NASAL HOLD 12/30/2025 [id number] [facility] PANTOPRAZOL E NA 40MG TAB,EC TAKE ONE TABLET BY MOUTH EVERY MORNING 30 MINUTES BEFORE BREAKFAS T ORAL HOLD 12/30/2025 [id number] 5 [facility] 2024 90 [facility] [place] [facility] ROSUVASTATI N CA 40MG TAB TAKE ONE-HALF TABLET BY MOUTH ONCE DAILY FOR CHOLESTE ROL ORAL ACTIVE 12/30/2025 [id number] 5 [facility] 2024 45 [facility] [place] [facility] SILDENAFIL CITRATE 100MG TAB TAKE ONE TABLET BY MOUTH NEEDED TAKE 1 HOUR PRIOR TO SEXUAL ACTIVITY ORAL HOLD 12/30/2025 [id number] 5 [facility] Allergies, Adverse Reactions, Alerts Combined list of allergies from Department of Defense and Veterans Affairs facilities. It does not include entries that were removed or entered in error. Substance Category Reaction Severity Reaction type Status Date Reported Comments Source DOXYCYCLINE Propensity to adverse reactions to drug (finding) Urticaria active 5 [facility] Immunizations Combined list of available immunizations from the Department of Defense and Veterans Affairs facilities. Immunization Series Date Given Administered By Site Reaction Lot Number CVX Code Drug Landfill Grader Status Comments Source COVID-19 (MODERNA), MRNA, LNP-S, PF, 100 MCG/0.5ML DOSE OR 50 MCG/0.25ML DOSE 2 2020 207 complet ed HISTORICA L INFORMATI ON - FROM OTHER REGISTRY, COVID 19 Moderna Mfr: MODERNA [employer] [facility] COVID-19 (MODERNA), MRNA, LNP-S, PF, 100 MCG/0.5ML DOSE OR 50 MCG/0.25ML DOSE 1 2020 207 complet ed HISTORICA L INFORMATI ON - FROM OTHER REGISTRY, COVID 19 Moderna Mfr: MODERNA [employer] [facility] [...] included; 2) Encounters from the Department of [facility] facilities going backup to 280 months. Location Location Details Encounter Type Encounter Number Reason For Visit Attending Provider ADM Date DC Date Status Disposition Source [facility] Outpatient Encounter [id number] 10/28 [facility] En[facility] [id number] 12/19 [facility] En[facility] [id number] 12/24 [facility] [place] 60 MIN [id number] Diagnos is: ICD-10- CM I73.9 Periphe ral vascula r disease , unspeci fied EDYTA SPANGLER 12/29 [facility] En[facility] [id number] 01/03 [facility] En[facility] [id number] 01/03 [facility] Outpatient Encounter [id number] 01/04 [facility] Outpatient Encounter [id number] ANAHY HUNTLEY 01/09 [facility] En[facility] [id number] 01/31 [facility] Outpatient Encounter [id number] 02/06 [facility] OFF/OP EST JANUARY X REQ PHY/QHP [id number] Diagnos is: ICD-10- CM I10 Essenti al (primar y) hyperte nsion DALIA NICOLE L 02/08 [facility] Outpatient Encounter [id number] 02/28 [facility] Social History Combined list of available smoking, tobacco, and other social history from Department of Defense and Veterans Affairs facilities. Social History Type Response Date Comment Sourc e Tobacco smoking status NHIS VA-TOBACCO USE EVERY DAY CIGARETTES 12/24/2024 [facility] [place] History of tobacco use VA-TOBACCO NEVER USED OTHER TYPE 12/24/2024 [facility] [place] [facility] Plan of Care List of future care activities from Department of Veterans Affairs facilities. Additional future care activities may be listed in the Assessment and Plan section. Date/Time Care Activity Care Activity Detail Facili ty 06/27/2025 AMBULATORY - MEDICINE AMBULATORY - MEDICI [place] [facility] Advance Directives List of completed, amended, or rescinded Advance Directives on record at Department of [facility] facilities. An actual copy of the Directive is not included. Date Advance Directive Provider Source 12/29/2024 ADVANCE DIRECTIVE [facility]
--- OUTSIDE RECORDS SUMMARY | 2025-04-06 08:50 | XMS_ITS | Clinical Summary ---
Author Organization [facility] Address [address] [place] [address] Care Team Providers Care Air Defense Artillery Officer Name Role Phone Goldie Watkins MD Primary [...] 92 08/30/2021 9:05 AM EST Temperature 37.1 C (98.7 F) 08/30/2021 9:05 AM EST Respiratory Rate - - Oxygen Saturation 98% [...] (1 of 2) 2011 Influenza Vaccine (#1) 2025 RSV Adult > 60+ Yrs or Pregn ant (1 - 1-dose 75+ series) 2036 Hepatitis B Vaccines Aged Out No long er eligible based on patient's age to complete this topic RSV Ped < 20 months Aged Out No longe r eligible based on patient's age to complete this topic Care Teams Air Defense Artillery Officer Relationship Specialty Start Date End Date Goldie Watkins MD [address] [place] [address] , [address] [facility] D/B/A: [facility] [place] [id number] PCP - General Internal Medicine 06/08/17
[2025-04-06 09:04] LABS: MANUAL DIFF FLAG NO
[2025-04-06 09:54] LABS: Alanine Aminotransferase 76 U/L (0-40); Albumin Level 4.4 g/dL (3.5-5.0); Alkaline Phosphatase 157 U/L (39-117); Anion Gap 13 (12-20); Aspartate Amino Transferase 75 U/L (5-37); Blood Urea Nitrogen 4 mg/dL (9-16); Calcium 10.0 mg/dL (8.4-10.2); Carbon Dioxide 23 mmol/L (22-29); Chloride 100 mmol/L (96-108); Cholesterol 149 mg/dL (<200); Estimated Glomerular Filt Rate > 60; HDL Cholesterol 63 mg/dL (>40); Potassium 4.3 mmol/L (3.3-5.1); Sodium 132 mmol/L (135-145); Total Protein 8.0 g/dL (6.5-8.0); Triglycerides 55 mg/dL (<150)
[2025-04-06 10:00] LABS: Anion Gap 14 (12-20); Blood Urea Nitrogen 4 mg/dL (9-16); Calcium 9.6 mg/dL (8.4-10.2); Carbon Dioxide 23 mmol/L (22-29); Chloride 99 mmol/L (96-108); Estimated Glomerular Filt Rate > 60; Potassium 4.3 mmol/L (3.3-5.1); Sodium 132 mmol/L (135-145)
[2025-04-06 10:04] LABS: Hematocrit 40.6 % (42.0-52.0); Hemoglobin 14.9 g/dl (14.0-18.0); Imm Gran Abs Auto 0.05 X10*3/uL (0.00-0.03); Imm Gran Pct Auto 1.2 % (0.0-0.4); Lymphocytes Absolute Auto 0.9 X10*3/uL (1.2-4.9); Mean Corpuscular HGB Conc 36.7 g/dl (31.0-36.0); Mean Corpuscular Hemoglobin 31.9 pg (27.0-33.0); Mean Corpuscular Volume 86.9 fL (80.0-98.0); NRBC Abs Auto 0.000 X10*3/uL (0.0-0.012); NRBC Pct Auto 0.0 /100WBC (0.0-0.2); Platelet Count 228 X10*3/uL (160-400); Red Blood Count 4.67 X10*6/uL (4.60-5.80); White Blood Count 4.1 X10*3/uL (4.8-10.8)
[2025-04-06 10:05] LABS: Alanine Aminotransferase 77 U/L (0-40); Albumin Level 4.4 g/dL (3.5-5.0); Alkaline Phosphatase 157 U/L (39-117); Anion Gap 14 (12-20); Aspartate Amino Transferase 75 U/L (5-37); Blood Urea Nitrogen 4 mg/dL (9-16); Calcium 9.8 mg/dL (8.4-10.2); Carbon Dioxide 24 mmol/L (22-29); Chloride 99 mmol/L (96-108); Estimated Glomerular Filt Rate > 60; Iron 70 mcg/dL (45-160); Percent Iron Saturation 26 % (15-50); Potassium 4.3 mmol/L (3.3-5.1); Sodium 133 mmol/L (135-145); Total Iron Binding Capacity 269 mcg/dL (228-428); Total Protein 8.0 g/dL (6.5-8.0); Unsaturated Iron Binding 199 ug/dL
[2025-04-06 10:14] LABS: Prostate Specific Antigen 1.08 ng/mL (<0.05-4.0)
[2025-04-06 10:18] LABS: Ferritin 90 ng/mL (20-250)
[2025-04-06 10:32] LABS: Folate 8.2 ng/mL (> or = 4.0); Vitamin B12 484 pg/mL (200-900)
== END 2025-04-06 08:39 | disposition home or self-care (01) ==
LOC: HO.LAB 08:38
PROVIDERS: Internal Medicine; Internal Medicine Medical Oncology; Visit Provider Internal Medicine
DX: R79.89 Other specified abnormal findings of blood chemistry (principal); N40.0 Benign prostatic hyperplasia without lower urinary tract symptoms; E66.3 Overweight; E78.5 Hyperlipidemia, unspecified; Z12.5 Encounter for screening for malignant neoplasm of prostate
CPT/HCPCS: 36415; 80048; 80053; 80061; 82607; 82728; 82746; 83540; 84153; 85025

== ENCOUNTER → 2025-04-10 13:54 | Outpatient (REF) | payer OTHER, SELFPAY ==
--- OUTSIDE RECORDS SUMMARY | 2025-02-28 11:30 | XMS_ITS ---
Author Organization Ashish Huertas III, MD Address [address] [facility] [place] [place] [address] Care Team Providers Care Business Performance Analyst Name Role Phone Ashish Huertas Primary [...] Problem Status W/U Status Risk Notes Problem [id number] Ear infection (H66.90) Active confirmed He has complete d a course of antibiotics for the skin inflammation on each year. A repeat culture grew only Tereza. The appearance is much improved. Problem 761620553 Age-related incipient cataract of both eyes (H25.093) [...] Date Provider Diagnosis Ashish Huertas III, MD [address] [place] [address] [place] [address] 02/28/2025 Ashish Huertas BPH (benign prostati c [...] Up: 3 Months, Reason: OV Provider Name:Ashish Huertas, 06/02/2025 09:00:00 AM, [address] [facility] [address], [place], [address], Provider Name:Ashish Huertas, 10/31/2025 02:00:00 PM, [address] [place] [address] [address], [place], [address], Progress Notes * Sid LANDEROS MDOB: 2 (64 yo M)Acc No.[id number]:02/28/2025 Patient: Sid COBOS Mili Provider: Frantz Huertas MD :1960 A ge:64 Y S ex:Male Date:02/28/2025 Address:[address] [place] [address] [id number] Subjective: * Chief Complaints: * M edical [...] pilonidal cyst Fracture of 2 fingers Colonoscopy, [facility], Dr. Ramos Arterial Bipass 05/2022No [...] MD Date: 0 02/28/2025 Generated for Vanessa rodriguez/Namita/Lesly on: 0 04/10/2025 03:11 PM EDT History and Physical Notes * [...]
--- OUTSIDE RECORDS SUMMARY | 2025-03-13 07:59 | XMS_ITS | Continuity of Care Document ---
Author Name [facility] Organization [facility] Care Team Providers Care Digester Hand Name Role Phone [facility] Unavailable Unavailable Problems Combined list of problems [...] [facility] Exposure to potentially hazardous substance ([facility] [id number]) Active Condition Dec 30 Entered By: GRACE [...] RIZO Comment: diagnosed 2016 , Dr Witt [facility] History of colonoscopy Active Condition Dec 24, 2024 Entered By: MICHAEL BOSWELL Comment: [facility], Dr. Ramos- 2020- Needs Colonoscopy ordered [...] NEEDED RESPIR ATORY (INHAL ATION) HOLD 12/30/2025 [id number] 5 WILFREDO WALKER 2024 3 [facility] AMLODIPINE BESYLATE 10MG TAB TAKE ONE TABLET BY MOUTH ONCE DAILY FOR BLOOD PRESSURE /HEART, DO NOT TAKE WITH GRAPEFRU IT JUICE ORAL HOLD 12/30/2025 [id number] 5 WILFREDO WALKER 2024 90 [facility] ASPIRIN 81MG TAB,EC TAKE ONE TABLET BY MOUTH ONCE DAILY TO PREVENT STROKE/H EART ATTACK ORAL HOLD 12/30/2025 [id number] 5 WILFREDO WALKER 2024 120 [facility] CLOPIDOGREL BISULFATE 75MG TAB TAKE ONE TABLET BY MOUTH ONCE DAILY ORAL ACTIVE 12/30/2025 [id number] 5 WILFREDO WALKER 2024 90 [facility] FLUTICASONE 250MCG/SALM ETEROL 50MCG INHL,ORAL,D ISKUS,60 INHALE 1 PUFF BY MOUTH TWICE DAILY - RINSE MOUTH AFTER USE RESPIR ATORY (INHAL ATION) HOLD 12/30/2025 [id number] 5 WILFREDO WALKER 2024 3 [facility] IBUPROFEN 800MG TAB TAKE ONE TABLET BY MOUTH THREE TIMES DAILY WITH MEALS TAKE WITH FOOD ORAL ACTIVE 12/30/2025 [id number] 5 WILFREDO WALKER 2024 90 [facility] LOSARTAN 25MG TAB TAKE ONE TABLET BY MOUTH ONCE DAILY FOR BLOOD PRESSURE /HEART ORAL ACTIVE 03/03/[id number] [facility] 2024 90 [facility] [place] [facility] NICOTINE 10MG/ML SOLN,NASAL SPRAY INSTILL 1 SPRAY INTO EACH NOSTRIL SIX TIMES A DAY NEEDED FOR SMOKING CESSATIO N NASAL HOLD 12/30/2025 [id number] 5 [facility] 30 [facility] [place] PANTOPRAZOL E NA 40MG TAB,EC TAKE ONE TABLET BY MOUTH EVERY MORNING 30 MINUTES BEFORE BREAKFAS T ORAL HOLD 12/30/2025 [id number] 5 [facility] 2024 90 [facility] [place] [facility] ROSUVASTATI N CA 40MG TAB TAKE ONE-HALF TABLET BY MOUTH ONCE DAILY FOR CHOLESTE ROL ORAL ACTIVE 12/30/2025 [id number] 5 [facility] 2024 45 [facility] SILDENAFIL CITRATE 100MG TAB TAKE ONE TABLET BY MOUTH NEEDED TAKE 1 HOUR PRIOR TO SEXUAL ACTIVITY ORAL HOLD 12/30/2025 [id number] 5 [facility] 20[facility] Allergies, Adverse Reactions, Alerts Combined list of allergies from Department of Defense and Veterans Affairs facilities. It does not include entries that were removed or entered in error. Substance Category Reaction Severity Reaction type Status Date Reported Comments Source DOXYCYCLINE Propensity to adverse reactions to drug (finding) Urticaria active 5 [facility] Immunizations Combined list of available immunizations from the Department of Defense and Veterans Affairs facilities. Immunization Series Date Given Administered By Site Reaction Lot Number CVX Code Drug Electronic Technologist Status Comments Source COVID-19 (MODERNA), MRNA, LNP-S, PF, 100 MCG/0.5ML DOSE OR 50 MCG/0.25ML DOSE 2 2020 207 complet ed HISTORICA L INFORMATI ON - FROM OTHER REGISTRY, COVID 19 Moderna Mfr: MODERNA [employer] [facility] COVID-19 (MODERNA), MRNA, LNP-S, PF, 100 MCG/0.5ML DOSE OR 50 MCG/0.25ML DOSE 1 2020 207 complet ed HISTORICA L INFORMATI ON - FROM OTHER REGISTRY, COVID 19 Moderna Mfr: MODERNA [employer] [facility] [...] included; 2) Encounters from the Department of [facility] ([place], [place]) facilities going backup to 280 months. Location Location Details Encounter Type Encounter Number Reason For Visit Attending Provider ADM Date DC Date Status Disposition Source [facility] Out[facility] Encounter [id number] 10/28 [facility] En[facility] [id number] 12/19 [facility] En[facility] [id number] 12/24 [facility] OFFICE [place]/P [place] 60 MIN [id number] Diagnos is: ICD-10- CM I73.9 Periphe ral vascula r disease , unspeci fied EDYTA SPANGLER 12/29 [facility] En[facility] [id number] 01/03 [facility] En[facility] [id number] 01/03 [facility] Outpatient Encounter [id number] 01/04 [facility] Outpatient Encounter [id number] ANAHY HUNTLEY 01/09 [facility] Out[facility] Encounter [id number] 01/31 [facility] Outpatient Encounter [id number] 02/06 [facility] OFF/OP EST JANUARY X REQ PHY/QHP [id number] Diagnos is: ICD-10- CM I10 Essenti al (primar y) hyperte nsion DALIA NICOLE L 02/08 [facility] Outpatient Encounter [id number] 02/28 [facility] Social History Combined list of available smoking, tobacco, and other social history from Department of Defense and Veterans Affairs facilities. Social History Type Response Date Comment Sourc e Tobacco smoking status NHIS VA-TOBACCO USE EVERY DAY CIGARETTES 12/24/2024 [facility] [place] [facility] History of tobacco use VA-TOBACCO NEVER USED OTHER TYPE 12/24/2024 [facility] [place] [facility] Plan of Care List of future care activities from Department of Veterans Affairs facilities. Additional future care activities may be listed in the Assessment and Plan section. Date/Time Care Activity Care Activity Detail Facili ty 06/27/2025 AMBULATORY - MEDICINE AMBULATORY - MEDICI NE [facility] [place] [facility] Advance Directives List of completed, amended, or rescinded Advance Directives on record at Department of [facility] facilities. An actual copy of the Directive is not included. Date Advance Directive Provider Source 12/29/2024 ADVANCE DIRECTIVE [facility]
--- OUTSIDE RECORDS SUMMARY | 2025-04-10 15:11 | XMS_ITS | Clinical Summary ---
Author Organization [facility] Address [address] [place] [address] Care Team Providers Care Pharmacy Laboratory Technician Name Role Phone Goldie Watkins MD Primary [...] age to complete this topic Care Teams Pharmacy Laboratory Technician Relationship Specialty Start Date End Date Goldie Watkins MD [address] [place] [address] , [address] [facility] D/B/A: [facility] [place] [address] PCP - General Internal Medicine 06/08/17
== END ==
LOC: HO.SL 13:54
PROVIDERS: PCP Internal Medicine Medical Oncology; Visit Provider Internal Medicine
DX: R06.83 Snoring (principal); G47.19 Other hypersomnia; R40.0 Somnolence
CPT/HCPCS: 95806

== ENCOUNTER → 2025-04-11 14:15 | Outpatient (BNV) | payer OTHER, SELFPAY | PROVIDERS: PCP Internal Medicine Medical Oncology; Visit Provider Internal Medicine | DX: R06.83 Snoring (principal) | CPT/HCPCS: 95806 ==

== ENCOUNTER 2025-06-05 07:53 | Outpatient (REF) | payer OTHER, SELFPAY ==
--- OUTSIDE RECORDS SUMMARY | 2025-01-24 06:30 | XMS_ITS ---
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 Name Role Phone Ashish Huertas Primary Care Provider [phone] REASON FOR VISIT Message Social History Sex Assigned At : Social History Observation Description Sex Assigned At Male Encounters Encounter Location Date Provider Diagnosis Ashish Huertas III, MD [address] [place] [address] [place] [address] 01/24/2025 Ashish Huertas Plan Of Treatment Next Appt Details Provider Name:Ashish Huertas, 06/07/2025 03:00:00 PM, [address] [place] [address] [place], [address], Provider Name:Ashish Huertas, 10/31/2025 02:00:00 PM, [address] [place] [address] [place], [address], Progress Notes * Sid LANDEROS MDOB: 2 (64 yo M)Acc No.[id number]:01/24/2025 Patient: Sid COBOS :1960 A ge:64 Y S ex:Male Address:[address] [place], [address] * true * Date: Generated for Printi ng/Faxing/eTransmitting on: 0 06/05/2025 07:57 AM EDT
--- OUTSIDE RECORDS SUMMARY | 2025-02-14 10:00 | XMS_ITS ---
Author Organization Ashish Huertas III, MD Address [address] [place] [address] Care Team Providers Care Cnc Operator Programmer Name Role Phone Ashish Huertas Primary Care Provider [phone] Allergies Allergen (clinical drug ingredient) Drug/Non Drug Allergy documented on EMR Reaction Allergy Type Onset Date Status doxycycline Doxycycline Unknown Drug Allergy Act henrry Results Component Value Reference Range Notes Routine Culture (Not yet rev iewed by provider) Interpretation: Performing Lab:[facility], [address] [place] [phone] Notes/Report: Routine Culture Report - external Routine [...] Problem Status W/U Status Risk Notes Problem [id number] Staphylococcus infection (B95.8) Active confirmed This seems [...] Date Provider Diagnosis Ashish Huertas III, MD [address] [place] [address] [place] [address] 02/14/2025 Ashish Huertas Staphylococcus infec tion B95.8 [...] 10 pounds. He has been referred to [facility] spine and sports rehabilitation medicine for [...] diagnosis of porphyria was made by a weather teacher at [facility]. He affirms that [...] Scheduled, Elisabet son: OV Provider Name:Ashish Huertas, 06/07/2025 03:00:00 PM, [address] [place] [address] [address], [place], [phone], Provider Name:Ashish Huertas, 10/31/2025 02:00:00 PM, [address] [place] [address] [address], [place], [phone], Progress Notes * Sid LANDEROS MDOB: 2 (64 yo M)Acc No.[id number]:02/14/2025 Progress Notes Patient: Sid COBOS Provider: Frantz Huertas MD :1960 A ge:64 Y S ex:Male Date:02/14/2025 Address:[address] [place] [address] [id number] Subjective: * Chief Complaints: * b ilateral [...] Surgical History: F emoral [place]popliteal [place] [place]Esophagogastricduodoscopy Excision of lipoma, left triceps, age 8 Repair of pilonidal cyst Fracture of 2 fingers Colonoscopy, [facility], Dr. Ramos Arterial Bipass 05/2022No history [...] 10 pounds. He has been referred to [facility] [...] diagnosis of porphyria was made by a weather teacher at [facility]. He affirms that [...] 02/14/2025 Generated for Vanessa rodriguez/Namita/Reyitting on: 0 06/05/2025 07:57 AM EDT History and Physical Notes * [...]
--- OUTSIDE RECORDS SUMMARY | 2025-02-28 11:30 | XMS_ITS ---
Author Organization Ashish Huertas III, MD Address [address] [facility] [place] [place] [address] Care Team Providers Care Bone Crusher Name Role Phone Ashish Huertas Primary Care [...] Problem Status W/U Status Risk Notes Problem [id number] Ear infection (H66.90) Active confirmed He has complete d a course of antibiotics for the skin inflammation on each year. A repeat culture grew only Tereza. The appearance is much improved. Problem 205404746 Age-related incipient cataract of both eyes (H25.093) [...] Date Provider Diagnosis Ashish Huertas III, MD [address] [place] [address] [place] [address] 02/28/2025 Ashish Huertas BPH (benign prostati c [...] 3 Months, Reason: OV Provider Name:Ashish Huertas, 06/07/2025 03:00:00 PM, 10 [facility] [address], [place], [address], Provider Name:Ashish Huertas, 10/31/2025 02:00:00 PM, [address] [place] [address] [address], [place], [address], Progress Notes * Sid LANDEROS MDOB: 2 (64 yo M)Acc No.[id number]:02/28/2025 Patient: Sid COBOS Mili Provider: Frantz Huertas MD :1960 A ge:64 Y S ex:Male Date:02/28/2025 Address:[address] [place] [address] KEVIN [place]-[id number] Subjective: * Chief Complaints: * M edical [...] History: [place] [place]Esophagogastricduodoscopy Excision of lipoma, left triceps, age 8 Repair of pilonidal cyst Fracture of 2 fingers Colonoscopy, [facility], Dr. Ramos Arterial Bipass 05/2022No history [...] 02/28/2025 Generated for Vanessa rodriguez/Namita/Lesly on: 0 06/05/2025 07:56 AM EDT History and Physical Notes * HPI [...]
--- OUTSIDE RECORDS SUMMARY | 2025-04-07 05:42 | XMS_ITS ---
Author Organization Ashish Huertas III, MD Address [address] [place] [address] Care Team Providers Care Soap Tender Name Role Phone Ashish Huertas Primary Care Provider REASON FOR VISIT Needs call back from Social History Sex Assigned At : Social History Observation Description Sex Assigned At Male Encounters Encounter Location Date Provider Diagnosis Ashish Huertas III, MD [address] [place] [address] [place] [address] 04/07/2025 Ashish Huertas Plan Of Treatment Next Appt Details Provider Name:Ashish Huertas, 06/07/2025 03:00:00 PM, [address] [place] [address] [address], [place], [address], Provider Name:Ashish Huertas, 10/31/2025 02:00:00 PM, [address] [place] [address] [place], [address], Progress Notes * Sid LANDEROS MDOB: 2 (64 yo M)Acc No.[id number]:04/07/2025 Patient: Sid COBOS :1960 A ge:64 Y S ex:Male Address:[address] [place], [address] * true * Date: Generated for Printi ng/Faxing/eTransmitting on: 0 06/05/2025 07:56 AM EDT
--- OUTSIDE RECORDS SUMMARY | 2025-06-02 05:00 | XMS_ITS ---
Author Organization Ashish Huertas III, MD Address [address] [facility] [place] [address] Care Team Providers Care Supervisor Belt And Link Assembly Name Role Phone Ashish Huertas Primary Care Provider [phone] Allergies Allergen (clinical drug ingredient) Drug/Non Drug Allergy documented on EMR Reaction Allergy Type Onset Date Status doxycycline Doxycycline Unknown Drug Allergy Act henrry REASON FOR VISIT Follow up Medications Medication SIG (Take, Route, Frequency, Duration) Notes Start Date End Date Status Clopidogrel Bisulfate 75 MG 1 tablet Ora lly Once a day 08/02/2024 Active Sildenafil Citrate 100 MG 1 tablet as ne eded Orally Once a day 10/28/2024 Active Losartan Potassium 25 MG 1 tablet Orally Once a day 01/10/2025 Active amLODIPine Besylate 10 MG 1 tablet Orall y Once a day Active Sulfamethoxazole-Trimethopr im 800-160 MG 1 tablet Orally twice a day 02/14/2025 Active Pantoprazole Sodium 40 MG one tablet miguel angel ly Orally Once a day 10/04/2024 Active Rosuvastatin Calcium 20 MG 1 tablet Oral ly Once a day Active Combivent Respimat 20-100 MCG/ACT 1 puff as needed Inhalation every 6 hrs Active Ibuprofen 800 MG Oral Act henrry Symbicort 160-4.5 MCG/ACT 2 puffs Inhala tion Twice a day Active Social History Tobacco Use: [...] user Light cigarett e smoker (1-9 cigs/day) Encounters Encounter Location Date Provider Diagnosis Ashish Huertas III, MD [address] [place] [address] [place] [address] 06/02/2025 Ashish Huertas Plan Of Treatment Medication Medication Name Sig Start Date Stop Date Notes Clopidogrel Bisulfate 75 MG 1 tablet Orally Once a day 01/2024 Sildenafil Citrate 100 MG 1 tablet as ne eded Orally Once a day 10/28/2024 Losartan Potassium 25 MG 1 tablet Orally Once a day 2024 amLODIPine Besylate 10 MG 1 tablet Orally Once a day Sulfamethoxazole-Trimethopri m 800-160 MG 1 tablet Orally twice a day 02/14/2025 Pantoprazole Sodium 40 MG one tablet miguel angel ly Orally Once a day 10/04/2024 Rosuvastatin Calcium 20 MG 1 tablet Orally Once a day Combivent Respimat 20-100 MCG/ACT 1 puff as needed Inhalation every 6 hrs Ibuprofen 800 MG Oral Symbicort 160-4.5 MCG/ACT 2 puffs Inhala tion Twice a day Next Appt Details Provider Name:Ashish Huertas, 06/07/2025 03:00:00 PM, [address] [place] [address] [address], [place], [address], Provider Name:Ashish Huertas, 10/31/2025 02:00:00 PM, [address] [place] [address] [address], [place], [address], Progress Notes * Sid LANDEROS MDOB: 2 (64 yo M)Acc No.[id number]:06/02/2025 Progress Notes Patient: Sid COBOS Provider: Frantz Huertas MD :1960 A ge:64 Y S ex:Male Date:06/02/2025 Address:[address] [place] [address] [place], [id number] Subjective: * Chief Complaints: * 1 . Follow up. * HPI: C OVID-19 Screening: Questions H [...] of breath d enies. G astrointestinal: Constipation d enies. D ecreased appetite d enies.?Diarrhea d enies. H eartburn d enies. N ausea d enies. R ectal bleeding?denies. V omiting d enies. H ematology: bruising [...] Depressed mood d enies. * Medical History: C OPD (chronic obstructive pulmonary disease), Hypertension, Erectile dysfunction, Peripheral vascular disease, Environmental allergies, History of repaired pilonidal cyst, Excised lipoma, left triceps, age 8, Porphyria cutanea tarda, Dr. Brady, [facility], Tobacco dependence, Covid19 infection 2021, Lumbar radiculopathy, [...] that they were 'pumping terrific'.. * Surgical History: F emoral -popliteal [place] [place], Esophagogastricduodoscopy , Excision of lipoma, left triceps, age 8 , Repair of pilonidal cyst , Fracture of 2 fingers , Colonoscopy, [facility], Dr. Ramos , Arterial Bipass 05/2022, No history . * Hospitalization/Major Diagno stic Procedure: D enies Past Hospitalization. * Family History: F ather: 72 yrs, [...] reduced his smoking significantly. * Medications: T aking Pantoprazole Sodium 40 MG Tablet Delayed Release [...] tablet Orally Once a day , Taking Sulfamethoxazole-Trimethoprim 800-160 MG Tablet 1 tablet Orally twice a day , Medication List reviewed and reconciled with the patient * Allergies: D oxycycline. Objective: * Vitals: * Examination: G eneral Examination: GENERAL APPEARANCE: p leasant, well nourished, well developed, in no acute distress, calm and relaxed. HEAD: a traumatic, normocephalic. EYES: e ros, perrla, anicteric, conjugate. EARS: n ormal. NOSE: s eptum intact. ORAL CAVITY: n [...] exam intact. PSYCH: a lert, oriented. Assessment: Plan: * Treatment: * Images: * The named appointment provid er may or may not be the originator of this progress note, and it is not deemed complete until electronically signed by the appointment provider. Sign off status: Pending * Provider: Frantz Huertas MD Date: 0 06/02/2025 Generated for Vanessa rodriguez/Namita/Reyitting on: 06/05/2025 07:56 AM EDT History and Physical [...]
--- NOTE | ~2025-06-05 | US_ITS ---
EXAMINATION: US ABDOMEN LIMITED HISTORY: K82.4 - Cholesterolosis of gallbladder TECHNIQUE: Real-time grayscale ultrasound imaging of the right upper quadrant was performed and images were reviewed. COMPARISON: Comparison is made with the prior examination dated 11/29/2024. FINDINGS: Liver: The right lobe of the liver measures 13.9 cm in size. The left lobe of the liver measures 15.7 cm in size. The liver demonstrates increased echotexture, consistent with steatosis. No focal mass or intrahepatic biliary ductal dilatation is identified. There is normal hepatopedal flow in the portal vein. Gallbladder and biliary tree: Again seen are multiple polyps within the gallbladder measuring up to 10 mm in size. Scattered echogenic foci along the gallbladder wall may represent adenomyomatosis. The gallbladder is otherwise unremarkable, without evidence of calculi, wall thickening, or pericholecystic fluid. There is no sonographic Son sign. The common bile duct is normal in caliber measuring 3 mm. Right Kidney: The right kidney measures 11.7 cm in length. The right kidney is unremarkable, without evidence of masses, hydronephrosis, or calculi. Pancreas: The pancreatic head, neck, and body are unremarkable. The pancreatic tail is obscured by bowel gas. Abdominal aorta and inferior vena cava: The visualized portions of the abdominal aorta and inferior vena cava are normal in caliber. There is no free fluid in the right upper quadrant. US/US abdomen limited IMPRESSION: Stable gallbladder polyps. Possible adenomyomatosis of the gallbladder. Electronically signed by: Ashish Manriquez MD 06/05/2025 08:45 AM EDT
--- OUTSIDE RECORDS SUMMARY | 2025-06-05 07:57 | XMS_ITS | Clinical Summary ---
Author Organization [facility] Address [address] [place] [address] Care Team Providers Care Monument Setter Helper Name Role Phone Goldie Watkins MD Primary [...] age to complete this topic Care Teams Monument Setter Helper Relationship Specialty Start Date End Date Goldie Watkins MD [address] [place] [address] , [address] [facility] D/B/A: [facility] [place] [id number] PCP - General Internal Medicine 06/08/17
--- OUTSIDE RECORDS SUMMARY | 2025-06-05 07:57 | XMS_ITS | Patient Health Record ---
Author Organization Ashish Huertas III, MD Address [address] RODRIGUEZ [address] [place] [address] [place] [address] Care Team Providers Care Jewelry Making Instructor Name Role Phone Ashish Huertas Primary [...] 0.2 - 1.3 BLD Neg Negative - Routine Culture (Not yet rev iewed by provider) Interpretation: Performing Lab:[facility], [address] [place] [address] Notes/Report: Routine Culture Report - external Routine Culture 4+ Mixed skin wesley O:CANPAR Tereza parapsilosis Routine Culture Quant Org ID Routine Culture 2+ Liver Panel Reviewed date:06/27/2024 06:04:41 AM Interpretation: Performing Lab:[facility], [address] [place] [address] Notes/Report: Bilirubin Total 0.6 0.0-1.0 mg/dL Bilirubin Direct 0.3 0.0-0.5 mg/dL Aspartate Amino Transferase 40 5-37 U/L Alanine Aminotransferase 31 0-40 U/L Total Protein 7.8 6.5-8.0 g/dL Albumin Level 4.4 3.5-5.0 g/dL Alkaline Phosphatase 110 39-117 U/L Lipid Panel Reviewed date:06/27/2024 06:04:41 AM Interpretation: Performing Lab:[facility], [address] [place] [address] Notes/Report: Triglycerides 39 <150 mg/dL Desirable Triglyceride: [...] date:09/24/2024 07:13:25 AM Interpretation: Performing Lab: Notes/Report: [address] [address] Ultrasound Report Signed Patient: Sid Landeros MR#: [id number] : 1960 Acct:[id number] Age/Sex: 63 / M ADM Date: 08/22/24 Loc: . Attending Dr: Jhony Orr MD Ordering Physician: Jhony Orr MD Date of Service: 08/22/24 Procedure(s): US arterial duplex BI w/ KAI Accession Number(s): [id number] cc: Ashish Huertas MD; Jhony Orr MD [...] by: Sultana Beaver MD 09/23/2024 06:31 PM [facility] [place], [place] Dictated By: Twyla Beaver Signed By: <Electronically signed by Twyla Beaver in OV> 09/23/24 1831 DD/ 1133 TD/TT: 08/22/24 1210 Real Estate Accountant: [address] [address] Ultrasound Report Signed Patient: Marlo Landeros MR#: [id number] : 1960 Acct:[id number] Age/Sex: 63 / M ADM Date: 08/22/24 Loc: HO.US Attending Dr: Jhony Orr MD Ordering Physician: Jhony Orr MD Date of Service: 08/22/24 Procedure(s): US arterial duplex BI w/ KAI Accession Number(s): [id number] cc: Ashish Huertas MD; Jhony Orr MD [...] by: Sultana Beaver MD 09/23/2024 06:31 PM [facility] [place] [place] Dictated By: Twyla Beaver Signed By: <Electronically signed by Twyla Beaver in OV> 09/23/24 1831 DD/ 1133 TD/TT: 08/22/24 1210 Real Estate Accountant: US taylor complete Reviewed date:02/16/2025 05:27:55 AM Interpretation: Performing Lab: Notes/Report: [address] [address] Ultrasound Report Signed Patient: Sid Landeros MR#: [id number] : 1960 Acct:[id number] Age/Sex: 64 / M ADM Date: 11/29/24 Loc: HO.US Attending Dr: Wen Diaz MD Ordering Physician: Wen Diaz MD Date of Service: 11/29/24 Procedure(s): US abdomen complete Accession Number(s): [id number] cc: Ashish Huertas MD; Wen Diaz MD [...] by: Naman Roth MD 11/30/2024 07:39 AM [facility] [place] [place] Dictated By: Naman Roth MD Signed By: <Electronically signed by Naman Roth MD in OV> 11/30/24 0739 DD/ 1033 TD/TT: 11/29/24 1054 Real Estate Accountant: [address] [address] Ultrasound Report Signed Patient: Marlo Landeros MR#: [id number] : 1960 Acct:[id number] Age/Sex: 64 / M ADM Date: 11/29/24 Loc: HO.US Attending Dr: Wen Diaz MD Ordering Physician: Wen Diaz MD Date of Service: 11/29/24 Procedure(s): US abdomen complete Accession Number(s): [id number] cc: Ashish Huertas MD; Wen Diaz MD [...] by: Naman Roth MD 11/30/2024 07:39 AM [facility] [place] [place] Dictated By: Naman Roth MD Signed By: <Electronically signed by Naman Roth MD in OV> 11/30/24 0739 DD/ 1033 TD/TT: 11/29/24 1054 Real Estate Accountant: ABEL Gram stain (Not yet reviewed by provider) Interpretation: Performing Lab:[facility], [address] [place] [phone] Notes/Report: Gram stain Gram stain results: Gram stain No polys Gram stain 1+ epithelial cells Gram stain 1+ Gram-positive cocci Gram stain 1+ Gram-positive rods Complete Blood Count Auto Di ff (Not yet reviewed by provider) Interpretation: Performing Lab:[facility], [address] [place] [phone] Notes/Report: White Blood Count 4.1 4.8-10.8 X10*3/uL Red Blood Count 4.67 4.60-5.80 X10*6/uL Hemoglobin 14.9 14.0-18.0 g/dl Hematocrit 40.6 42.0-52.0 % Mean Corpuscular Volume 86.9 80.0-98.0 fL Mean Corpuscular Hemoglobin 31.9 27.0-33.0 pg Mean Corpuscular HGB Conc 36.7 31.0-36.0 g/dl Red Cell Distribution Width 13.8 11.0-16.0 % Platelet Count 228 160-400 X10*3/uL Mean Platelet Volume 9.1 9.4-12.4 fL Neutrophils Percent Auto 59.2 45-73 % Imm Gran Pct Auto 1.2 0.0-0.4 % Lymphocytes Percent Auto 21.9 20-40 % Monocytes Percent Auto 16.5 2-11 % Eosinophils Percent Auto 0.7 0-4 % Basophils Percent Auto 0.5 0-2 % NRBC Pct Auto 0.0 0.0-0.2 /100WBC Neutrophils Absolute Auto 2.4 2.0-8.3 x10*3/u L Imm Gran Abs Auto 0.05 0.00-0.03 X10*3/uL Lymphocytes Absolute Auto 0.9 1.2-4.9 X10*3/u L Monocytes Absolute Auto 0.7 0.1-1.2 X10*3/uL Eosinophils Absolute Auto 0.0 0.0-0.4 X10*3/u L Basophils Absolute Auto 0.0 0.0-0.2 X10*3/uL NRBC Abs Auto 0.000 0.0-0.012 X10*3/uL Comprehensive [place]. Panel Fa st (Not yet reviewed by provider) Interpretation: Performing Lab:[facility], [address] [place] [address] Notes/Report: Sodium 132 135-145 mmol/L Potassium 4.3 3.3-5.1 mmol/L Chloride 100 96-108 mmol/L Carbon Dioxide 23 22-29 mmol/L Anion Gap 13 12-20 Blood Urea Nitrogen 4 9-16 mg/dL Creatinine 0.73 0.5-1.4 mg/dL Estimated Glomerular Filt Rate > 60 Chronic Kidney Disease: Estimated GFR < 60 mL/min/1.73m2 Severe Kidney Disease: Estimated GFR < 15 mL/min/1.73m2 Glucose Fasting 81 60-99 mg/dL Calcium 10.0 8.4-10.2 mg/dL Bilirubin Total 0.6 0.0-1.0 mg/dL Aspartate Amino Transferase 75 5-37 U/L Alanine Aminotransferase 76 0-40 U/L Total Protein 8.0 6.5-8.0 g/dL Albumin Level 4.4 3.5-5.0 g/dL Alkaline Phosphatase 157 39-117 U/L Lipid Panel (Not yet reviewe d by provider) Interpretation: Performing Lab:[facility], [address] [place] [address] Notes/Report: Triglycerides 55 <150 mg/dL Desirable Triglyceride: less than 150 mg/dL Borderline High Triglyceride 150-199 mg/dL High Triglyceride: 200-499 mg/dL Very High Triglyceride: greater than or equal to 5OO mg/dL Cholesterol 149 <200 mg/dL Desirable Cholesterol: less than 200 mg/dL Borderline High Cholesterol: 200-239 mg/dL High Cholesterol: greater than 239 mg/dL LDL Cholesterol Calculated 75 <100 mg/dL Desirable LDL: less than 100 mg/dL Near Optimal/Above Optimal LDL: 110-129 mg/dL Borderline High LDL: 130-159 mg/dL High LDL: 160-189 mg/dL Very High LDL: greater than or equal to 190 mg/dL HDL Cholesterol 63 >40 mg/dL Desirable HDL: greater than 40 mg/dL Note: This HDL assay may give artificially low results in patients with liver disease. Prostate Specific Antigen (N ot yet reviewed by provider) Interpretation: Performing Lab:[facility], [address] [place] [address] Notes/Report: Prostate Specific Antigen 1.08 <0.05-4.0 ng/mL PSA methodology: Aristotle Circlenity i Chemiluminescent Microparticle Immunoassay (CMIA) Reason For Referral No Information Medications Medication [...] tablet Orally twice a day 02/14/2025 Active Immunizations Vaccine Route Administration Date Status [...] Status W/U Status Risk Notes Problem Hyperlipidemia (55743739) Hyperlipidemia (E78.5) Active confirmed Comprehensive blood work with a fasting lipid profile is being done periodically. Problem 014821497 Overweight (E66.3) Active confirmed His body mass index is now 23.6 and this problem has resolved. Problem Hypertension (95789921) Hypertension (I10) Active confirmed His blood pressure has been 134/77. No change in his regimen was made. I encouraged him to pursue aggressive sodium restriction. He was given an appointment to come to the office and recheck his blood pressure.He will continue on the losartan given by cardiology. Problem 94075938 Porphyria cutanea tarda (E80.1) Active confirmed The diagnosis o f porphyria was made by a manager acute at [facility]. He affirms that if he goes into direct sunlight. He will experience blisters and skin lesions. He is well versed in how to prevent this and has medications for his skin. Problem 718677434 Acute bronchitis due to other specified organisms (J20.8) Active confirmed He is producing green phlegm and says he is wheezing. The inhaler is helping. He was given a Zithromax and prednisone with a follow-up visit. Problem Benign prostatic hyperplasia (713003034) BPH (benign prostatic hyperplasia) (N40.0) Active confirmed He arises from sleep about once a night to urinate. We have discussed lifestyle modifications he could make to reduce this. Problem 93015485 Tobacco dependence (F17.200) Active confirmed He continues to smoke a package of cigarettes every day. We discussed the health consequences of this. His COPD has been stable and inactive recently. I made him aware of the smoking cessation programs and the local hospitals and this community. Problem COPD - Chronic obstructive pulmonary disease (40264216) COPD (chronic obstructive pulmonary disease) (J44.9) Active [...] lung cancer, COPD, oxygen dependence, etc. Problem 441594030 Ear infection (H66.90) Active confirmed He has complete d a course of antibiotics for the skin inflammation on each year. A repeat culture grew only Tereza. The appearance is much improved. Problem 01288079 Viral syndrome (B34.9) Active confirmed I'm going to speak to him on a daily basis because of the risk of progression of respiratory disease. He has continued to smoke and has COPD. He will continue to use his inhalers as directed. If necessary he will be given oral prednisone and an antibiotic. Problem 40792892 Pilonidal cyst (L05.91) Active confirmed He had an excision and repair of this cyst years ago. It is healed and no longer bothers him. Problem 955703581 Peripheral arterial disease (I73.9) Active confirmed His claudica tion is stable at 1 block. He recently saw the vascular surgeon. He recently underwent a revision of his left femoral-popliteal bypass graft. The wound is now healed. He experiences some claudication in his right leg and is able to walk one block without stopping to rest. Problem 996888200 Age-related incipient cataract of both eyes (H25.093) Active confirmed He is scheduled for cataract extraction sequentially later this month. I have taken. A careful history and examined him thoroughly. There is no contraindication to surgery at this time. The benefit is great in the risk is small. He is given medical clearance for both procedures. Problem 226184145 Lumbar radiculopathy, right (M54.16) Active confirmed He continues to have pain that comes from his lower lumbar spine and right paravertebral muscles that radiates into his right buttock. X-rays have shown degenerative disease. The pain is aggravated with walking more than 10 feet and lifting more than 10 pounds. He has been referred to [facility] medicine for physical therapy injections imaging and evaluation for surgery. Problem 28794787 Acute diffuse otitis externa of both ears (H60.313) Active confirmed The left ear wa s primarily involved. The otic canalWas uninvolved. The tympanic membrane was normal. A prescription for Bactrim was given to him. Problem 38616431 Staphylococcus infection (B95.8) Active confirmed This seems to b e a recurrence of a previous infection which was successfully treated. Was begun on an antibiotic and a culture was sent. Follow-up visit was arranged. Vital Signs Heart Rate 84 /min 02/28/2025 Temperature 98.4 degrees Fahrenheit 02/28/2025 Oximetry 98 % 02/28/2025 Blood pressure diastolic 55 mm Hg 02/28/2025 Height 70 in 02/28/2025 Blood pressure systolic 118 mm Hg 02/28/2025 Weight 165 lbs 02/28/2025 BMI 23.67 kg/m2 02/28/2025 Encounters Encounter Location Date Provider Diagnosis Ashish Huertas III, MD [address] [place] [address] [place] [address] 08/02/2024 Ashish Huertas Infection of pelvis M86.9 ; Peripheral arterial disease I73.9 ; COPD (chronic obstructive pulmonary disease) J44.9 ; Lumbar radiculopathy, right M54.16 ; BPH (benign prostatic hyperplasia) N40.0 and Hypertension I10 Ashish Huertas III, MD [address] [place] [address] [place] [address] 08/15/2024 Ashish Huertas Infection of pelvis M86.9 ; Hypertension I10 ; BPH (benign prostatic hyperplasia) N40.0 ; COPD (chronic obstructive pulmonary disease) J44.9 ; Peripheral arterial disease I73.9 and Lumbar radiculopathy, right M54.16 Ashish Huertas III, MD [address] [place] [address] [place] [address] 10/28/2024 Ashish Huertas Hypertension I10 ; C OPD (chronic obstructive pulmonary disease) J44.9 ; BPH (benign prostatic hyperplasia) N40.0 ; Peripheral arterial disease I73.9 ; Tobacco dependence F17.200 ; Porphyria cutanea tarda E80.1 ; Lumbar radiculopathy, right M54.16 and Overweight E66.3 Ashish Huertas III, MD [address] [place] [address] [place] [address] 11/15/2024 Ashish Huertas Acute bronchitis due to other specified organisms J20.8 ; COPD (chronic obstructive pulmonary disease) J44.9 ; Tobacco dependence F17.200 ; Lumbar radiculopathy, right M54.16 ; Porphyria cutanea tarda E80.1 ; Hyperlipidemia E78.5 ; Hypertension I10 and Peripheral arterial disease I73.9 Ashish Huertas III, MD [address] [place] [address] [place] [address] 01/10/2025 Ashish Huertas Acute diffuse otitis externa of both ears H60.313 ; Lumbar radiculopathy, right M54.16 ; Hypertension I10 ; BPH (benign prostatic hyperplasia) N40.0 ; Peripheral arterial disease I73.9 ; Tobacco dependence F17.200 ; Porphyria cutanea tarda E80.1 and COPD (chronic obstructive pulmonary disease) J44.9 Ashish Huertas III, MD [address] [place] [address] [place] [address] 01/18/2025 Ashish Huertas Acute bronchitis due to other specified organisms J20.8 ; Hypertension I10 ; BPH (benign prostatic hyperplasia) N40.0 ; COPD (chronic obstructive pulmonary disease) J44.9 ; Peripheral arterial disease I73.9 and Lumbar radiculopathy, right M54.16 Ashish Huertas III, MD [address] [place] [address] [place] [address] 01/23/2025 Ashish Huertas Viral syndrome B34.9 ; COPD (chronic obstructive pulmonary disease) J44.9 ; Hypertension I10 ; BPH (benign prostatic hyperplasia) N40.0 ; Peripheral arterial disease I73.9 ; Tobacco dependence F17.200 ; Porphyria cutanea tarda E80.1 and Lumbar radiculopathy, right M54.16 Ashish Huertas III, MD [address] [place] [address] [place] [address] 02/14/2025 Ashish Huertas Staphylococcus infec tion B95.8 ; Hypertension I10 ; BPH (benign prostatic hyperplasia) N40.0 ; COPD (chronic obstructive pulmonary disease) J44.9 ; Peripheral arterial disease I73.9 ; Lumbar radiculopathy, right M54.16 ; Tobacco dependence F17.200 and Porphyria cutanea tarda E80.1 Ashish Huertas III, MD [address] [place] [address] [place] [address] 02/28/2025 Ashish Huertas BPH (benign prostati c hyperplasia) N40.0 ; Age-related incipient cataract of both eyes H25.093 ; Overweight E66.3 ; Hyperlipidemia E78.5 ; Ear infection H66.90 and COPD (chronic obstructive pulmonary disease) J44.9 Ashish Huertas III, MD [address] [place] [address] [place] [address] 07/01/2024 Ashish Huertas III, MD [address] [place] [address] [place] [address] 10/04/2024 Ashish Huertas Infection of pelvis M86.9 Ashish Huertas III, MD [address] [place] [address] [place] [address] 11/21/2024 Ashish Huertas III, MD [address] [place] [address] [place] [address] 11/21/2024 Ashish Huertas III, MD [address] [place] [address] [place] [address] 12/19/2024 Ashish Huertas III, MD [address] [place] [address] [place] [address] 01/24/2025 Ashish Huertas III, MD [address] [place] [address] [place] [address] 04/07/2025 Ashish Huertas Assessments Encounter Date Diagnosis (ICD Code) Assessment Notes T reatment Notes Treatment Clinical Notes 08/02/2024 Peripheral arterial disease (ICD-10 - I73.9) [...] 10 pounds. He has been referred to [facility] in [facility] rehabilitation medicine for [...] be given oral prednisone and an antibiotic. 02/14/2025 Hypertension (ICD-10 - I10) His blood pressure has been 134/77. No change in his regimen was made. I encouraged him to pursue aggressive sodium restriction. He was given an appointment to come to the office and recheck his blood pressure.He will continue on the losartan given by cardiology. 02/14/2025 Staphylococcus infection (ICD-10 - B95.8) This seems to be a recurrence of a previous infection which was successfully treated. Was begun on an antibiotic and a culture was sent. Follow-up visit was arranged. 02/28/2025 BPH (benign prostatic hyperplasia) (ICD-10 - [...] is given medical clearance for both procedures. 10/04/2024 Infection of pelvis (ICD-10 - M86.9) He had an abscess in his perineal body on the left side. It is now resolved 08/02/2024 COPD (chronic obstructive pulmonary disease) (ICD-10 [...] modifications he can make to reduce nocturia. 02/28/2025 Overweight (ICD-10 - E66.3) His body mass index is now 23.6 and this problem has resolved. 08/02/2024 Lumbar radiculopathy, right (ICD-10 - M54.16) He continues to have pain that comes from his lower lumbar spine and right paravertebral muscles that radiates into his right buttock. X-rays have shown degenerative disease. The pain is aggravated with walking more than 10 feet and lifting more than 10 pounds. He has been referred to [facility] spine and sports rehabilitation medicine for [...] 10 pounds. He has been referred to [facility] spine and sports rehabilitation medicine for [...] (chronic obstructive pulmonary disease) (ICD-10 - J44.9) 02/28/2025 Hyperlipidemia (ICD-10 - E78.5) Comprehensive blood work with a fasting lipid profile is being done periodically. 08/02/2024 BPH (benign prostatic hyperplasia) (ICD-10 - [...] diagnosis of porphyria was made by a manager acute at [facility]. He affirms that [...] one block without stopping to rest. 02/14/2025 Peripheral arterial disease (ICD-10 - I73.9) His claudication is stable at 1 block. He recently saw the vascular surgeon. He recently underwent a revision of his left femoral-popliteal bypass graft. The wound is now healed. He experiences some claudication in his right leg and is able to walk one block without stopping to rest. 02/28/2025 Ear infection (ICD-10 - H66.90) He has completed a course of antibiotics for the skin inflammation on each year. A repeat culture grew only Tereza. The appearance is much improved. 08/02/2024 Hypertension (ICD-10 - I10) His blood [...] 10 pounds. He has been referred to [facility] in [facility] for physical therapy injections imaging and evaluation for surgery. 10/28/2024 Porphyria cutanea tarda (ICD-10 - E80.1) The diagnosis of porphyria was made by a manager acute at [facility]. He affirms that [...] 10 pounds. He has been referred to [facility] in [facility] for physical therapy injections imaging and evaluation for surgery. 01/23/2025 Tobacco dependence (ICD-10 - F17.200) He continues to smoke a package of cigarettes every day. We discussed the health consequences of this. His COPD has been stable and inactive recently. I made him aware of the smoking cessation programs and the local hospitals and this community. 02/14/2025 Lumbar radiculopathy, right (ICD-10 - M54.16) He continues to have pain that comes from his lower lumbar spine and right paravertebral muscles that radiates into his right buttock. X-rays have shown degenerative disease. The pain is aggravated with walking more than 10 feet and lifting more than 10 pounds. He has been referred to [facility] in [facility] for physical therapy injections imaging and evaluation for surgery. 02/28/2025 COPD (chronic obstructive pulmonary disease) (ICD-10 [...] lung cancer, COPD, oxygen dependence, etc. 10/28/2024 Lumbar radiculopathy, right (ICD-10 - M54.16) He continues to have pain that comes from his lower lumbar spine and right paravertebral muscles that radiates into his right buttock. X-rays have shown degenerative disease. The pain is aggravated with walking more than 10 feet and lifting more than 10 pounds. He has been referred to [facility] spine and sports rehabilitation medicine for [...] diagnosis of porphyria was made by a manager acute at [facility]. He affirms that if he goes into direct sunlight. He will experience blisters and skin lesions. He is well versed in how to prevent this and has medications for his skin. 01/23/2025 Porphyria cutanea tarda (ICD-10 - E80.1) The diagnosis of porphyria was made by a manager acute at [facility]. He affirms that if he goes into direct sunlight. He will experience blisters and skin lesions. He is well versed in how to prevent this and has medications for his skin. 02/14/2025 Tobacco dependence (ICD-10 - F17.200) He continues to smoke a package of cigarettes every day. We discussed the health consequences of this. His COPD has been stable and inactive recently. I made him aware of the smoking cessation programs and the local hospitals and this community. 10/28/2024 Overweight (ICD-10 - E66.3) He is [...] 10 pounds. He has been referred to [facility] spine and sports rehabilitation medicine for physical therapy injections imaging and evaluation for surgery. 02/14/2025 Porphyria cutanea tarda (ICD-10 - E80.1) The diagnosis of porphyria was made by a manager acute at [facility]. He affirms that if he goes into direct sunlight. He will experience blisters and skin lesions. He is well versed in how to prevent this and has medications for his skin. Plan Of Treatment Pending Test Test Name Order Date PROFILE, FASTING (COMPREHENSIVE METABOLI C) 09/23/2023 PROFILE, FASTING (COMPREHENSIVE METABOLI C) 10/28/2024 PROFILE, FASTING (COMPREHENSIVE METABOLI C) 02/28/2025 PROFILE, FASTING (COMPREHENSIVE METABOLI C) 01/15/2023 PROFILE, FASTING (COMPREHENSIVE METABOLI C) 09/15/2022 PROFILE, FASTING (COMPREHENSIVE METABOLI C) 05/23/2024 LIPID PANEL 01/15/2023 LIPID PANEL 09/15/2022 PSA, TOTAL 09/23/2023 PSA, TOTAL 10/28/2024 PSA, TOTAL 02/28/2025 PSA, TOTAL 05/23/2024 PSA, TOTAL 01/15/2023 PSA, TOTAL 09/15/2022 CBC w DIFF 09/23/2023 CBC w DIFF 02/28/2025 CBC w DIFF 01/15/2023 CBC w DIFF 09/15/2022 XR LUMBAR SPINE 09/23/2023 VITAMIN D 25-OH TOTAL 09/15/2022 CBC WITH AUTO DIFF 10/28/2024 CBC WITH AUTO DIFF 05/23/2024 Complete Blood Count Auto Diff Comprehensive [place]. Panel Fast Lipid Panel 04/06/2025 Lipid Panel 09/23/2023 Lipid Panel 10/28/2024 Lipid Panel 02/28/2025 Lipid Panel 05/23/2024 Prostate Specific Antigen 04/06/2025 Gram stain 02/14/2025 XR thoracic spine 3V 11/27/2023 Routine Culture 02/14/2025 Routine Culture 02/09/2024 Routine Culture 01/10/2025 Next Appt Details Provider Name:Ashish Huertas, 06/07/2025 03:00:00 PM, [address] [place] [address] [address], [place], [address], Provider Name:Ashish Huertas, 10/31/2025 02:00:00 PM, [address] [place] [address] [address], [place], [address], Insurance Providers Payer Name Payer Address Payer Phone Subscriber Number Group Number Insured Name Patient Relationship to Insured Coverage Start Date Coverage End Date [facility] [address] [place], [place] [id number] Sid Landeros Self - patient is the insured [address] [place] [address] [id number] Sid Landeros Self - patient is the insured Medical (General) History Medical History History ICD Code COPD (chronic obstructive pulmonary dise ase) J44.9 Hypertension I10 Erectile dysfunction Peripheral vascular disease Environmental allergies History of repaired pilonidal cyst Excised lipoma, left triceps, age 8 Porphyria cutanea tarda, Dr. Brady, [facility] Tobacco dependence Covid19 infection 2021 Lumbar [...] Date(Month/Year) No history Arterial Bipass 05/2022 Colonoscopy, [facility], Dr. Ramos Fracture of 2 fingers Repair of pilonidal cyst Excision of lipoma, left triceps, age 8 Esophagogastricduodoscopy Femoral -popliteal arterial bypass @[facility] [place] 05/2022 Hospitalization History Reason Date(Month/Year)
== END 2025-06-05 07:54 | disposition home or self-care (01) ==
LOC: HO.US 07:53
PROVIDERS: PCP Internal Medicine Medical Oncology; Visit Provider Surgery
DX: K82.4 Cholesterolosis of gallbladder (principal)
CPT/HCPCS: 76705

== ENCOUNTER → 2025-06-05 07:55 | Outpatient (BNV) | payer OTHER, SELFPAY | PROVIDERS: PCP Internal Medicine Medical Oncology; Visit Provider Radiology Diagnostic Radiology | DX: K82.4 Cholesterolosis of gallbladder (principal) | CPT/HCPCS: 76705 ==

== ENCOUNTER 2025-06-12 09:25 | Outpatient (AMB) | payer OTHER, SELFPAY ==
--- OUTSIDE RECORDS SUMMARY | 2025-02-14 10:00 | XMS_ITS ---
Author Organization Ashish Huertas III, MD Address [address] [place] [address] Care Team Providers Care Digital Tech Name Role Phone Ashish Huertas Primary Care Provider [phone] Allergies Allergen (clinical drug ingredient) Drug/Non Drug Allergy documented on EMR Reaction Allergy Type Onset Date Status doxycycline Doxycycline Unknown Drug Allergy Act henrry Results Component Value Reference Range Notes Routine Culture (Not yet rev iewed by provider) Interpretation: Performing Lab:[facility], [address] [place] [phone] Notes/Report: Routine Culture Report - external Routine [...] Problem Status W/U Status Risk Notes Problem [id number] Staphylococcus infection (B95.8) Active confirmed This seems [...] Date Provider Diagnosis Ashish Huertas III, MD [address] [place] [address] [place] [address] 02/14/2025 Ashish Huertas Staphylococcus infec tion B95.8 [...] 10 pounds. He has been referred to [facility] spine and sports rehabilitation medicine for [...] diagnosis of porphyria was made by a mobile home lot utility worker at [facility]. He affirms that if he [...] OV Provider Name:Ashish Huertas, 09/06/2025 10:30:00 AM, [address] [place] [address] [address], [place], [phone], Provider Name:Ashish Huertas, 10/31/2025 02:00:00 PM, [address] [place] [address] [address], [place], [phone], Progress Notes * Sid LANDEROS MDOB: 2 (64 yo M)Acc No.[id number]:02/14/2025 Progress Notes Patient: Sid COBOS Provider: Frantz Huertas MD :1960 A ge:64 Y S ex:Male Date:02/14/2025 Address:[address] [place] [address] [id number] Subjective: * Chief Complaints: * b ilateral [...] Surgical History: F emoral -popliteal arterial [place] [place]Esophagogastricduodoscopy Excision of lipoma, left triceps, age 8 Repair of pilonidal cyst Fracture of 2 fingers Colonoscopy, [facility], Dr. Ramos Arterial Bipass 05/2022No [...] 10 pounds. He has been referred to [facility] [...] diagnosis of porphyria was made by a mobile home lot utility worker at [facility]. He affirms that if he [...] 02/14/2025 Generated for Vanessa rodriguez/Namita/Reyitting on: 0 06/12/2025 11:14 AM EDT History and Physical Notes * Examination [...]
--- OUTSIDE RECORDS SUMMARY | 2025-02-28 11:30 | XMS_ITS ---
Author Organization Ashish Huertas III, MD Address [address] [facility] [address] [place] [address] Care Team Providers Care Drum Worker Name Role Phone Ashish Huertas Primary Care [...] Pantoprazole Sodium 40 MG one tablet miguel anegl ly Orally Once a day 10/04/2024 Active [...] Problem Status W/U Status Risk Notes Problem [id number] Ear infection (H66.90) Active confirmed He has complete d a course of antibiotics for the skin inflammation on each year. A repeat culture grew only Tereza. The appearance is much improved. 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 (H25.093) [...] Provider Diagnosis Ashish Huertas III, MD [address] [place] [address] [place] [address] 02/28/2025 Ashish Huertas BPH (benign prostati c [...] Provider Name:Ashish Huertas, 09/06/2025 10:30:00 AM, [address] [facility] [address], [place], [address], Provider Name:Ashish Huertas, 10/31/2025 02:00:00 PM, [address] [facility] [address], [place], [address], Progress Notes * Sid LANDEROS MDOB: 2 (64 yo M)Acc No.[id number]:02/28/2025 Patient: Sid COBOS Mili Provider: Frantz Huertas MD :1960 A ge:64 Y S ex:Male Date:02/28/2025 Address:[address] [place] [address] KEVIN [place]-[id number] Subjective: * Chief Complaints: * M edical [...] pilonidal cyst Fracture of 2 fingers Colonoscopy, [facility], Dr. Ramos Arterial Bipass 05/2022No history [...] 02/28/2025 Generated for Vanessa rodriguez/Namita/Reyitting on: 0 06/12/2025 [...]
--- OUTSIDE RECORDS SUMMARY | 2025-04-07 05:42 | XMS_ITS ---
Author Organization Ashish Huertas III, MD Address [address] [facility] [place] [address] Care Team Providers Care Spray Rig Operator Name Role Phone Ashish Huertas Primary Care Provider [phone] REASON FOR VISIT Needs call back from Social History Sex Assigned At : Social History Observation Description Sex Assigned At Male Encounters Encounter Location Date Provider Diagnosis Ashish Huertas III, MD [address] [place] [address] [place] [address] 04/07/2025 Ashish Huertas Plan Of Treatment Next Appt Details Provider Name:Ashish Huertas, 09/06/2025 10:30:00 AM, [address] [place] [address] [place], [address], Provider Name:Ashish Huertas, 10/31/2025 02:00:00 PM, [address] [place] [address] [place], [address], Progress Notes * Sid LANDEROS MDOB: 2 (64 yo M)Acc No.[id number]:04/07/2025 Patient: Sid COBOS :1960 A ge:64 Y S ex:Male Address:[address] [place], [address] * true * Date: Generated for Printi ng/Faxing/eTransmitting on: 0 06/12/2025 11:13 AM EDT
--- OUTSIDE RECORDS SUMMARY | 2025-06-02 05:00 | XMS_ITS ---
Author Organization Ashish Huertas III, MD Address [address] [facility] [place] [address] Care Team Providers Care Transmission Worker Name Role Phone Ashish Huertas Primary [...] Date Provider Diagnosis Ashish Huertas III, MD [address] [place] [address] [place] [address] 06/02/2025 Ashish Huertas Plan Of Treatment Medication [...] day Next Appt Details Provider Name:Ashish Huertas, 09/06/2025 10:30:00 AM, [address] [place] [address] [address], [place], [address], Provider Name:Ashish Huertas, 10/31/2025 02:00:00 PM, [address] [place] [address] [address], [place], [address], Progress Notes * Sid LANDEROS MDOB: 2 (64 yo M)Acc No.[id number]:06/02/2025 Progress Notes Patient: Sid COBOS Provider: Frantz Huertas MD :1960 A ge:64 Y S ex:Male Date:06/02/2025 Address:[address] [place] [address] [place], [place]-[id number] Subjective: * Chief Complaints: * 1 . [...] age 8, Porphyria cutanea tarda, Dr. Brady, [facility], Tobacco dependence, Covid19 infection 2021, Lumbar [...] Surgical History: F emoral -popliteal arterial [place] 05/[place]22, Esophagogastricduodoscopy , Excision of lipoma, left triceps, age 8 , Repair of pilonidal cyst , Fracture of 2 fingers , Colonoscopy, [facility], Dr. Ramos , Arterial Bipass 05/2022, [...] 0 06/02/2025 Generated for Vanessa rodriguez/Namita/Reyitting on: 0 06/12/2025 [...]
--- OUTSIDE RECORDS SUMMARY | 2025-06-07 11:00 | XMS_ITS ---
Author Organization Ashish Huertas III, MD Address [address] [facility] [address] [place] [address] Care Team Providers Care Ethanol Operations Manager Name Role Phone Ashish Huertas Primary Care Provider Allergies Allergen (clinical drug ingredient) Drug/Non Drug Allergy documented on EMR Reaction Allergy Type Onset Date Status doxycycline Doxycycline Unknown Drug Allergy Act henrry REASON FOR VISIT Otitis, COPD, Hypertension, Porphyria, [...] Problem Status W/U Status Risk Notes Problem [id number] Other hemochromatosis (E83.118) Active confirmed We will [...] Date Provider Diagnosis Ashish Huertas III, MD [address] [place] [address] [place] [address] 06/07/2025 Ashish Huertas Tobacco dependence F17.200 ; [...] OV Provider Name:Ashish Huertas, 09/06/2025 10:30:00 AM, [address] [place] [address] [address], [place], [address], Provider Name:Ashish Huertas, 10/31/2025 02:00:00 PM, [address] [place] [address] [address], [place], [address], Progress Notes * ISABELLSid MDOB: 2 (64 yo M)Acc No.[id number]:06/07/2025 Progress Notes Patient: Sid COBOS Provider: Frantz Huertas MD :1960 A ge:64 Y S ex:Male Date:06/07/2025 Address:[address] [place] [address], [id number] Subjective: * Chief Complaints: * O titisCOPDHypertensionPorphyriaTobacco [...] Surgical History: F emoral -popliteal arterial [place] [place] 05/2022Esophagogastricduodoscopy Excision of lipoma, left triceps, age 8 Repair of pilonidal cyst Fracture of 2 fingers Colonoscopy, [facility], Dr. Ramos Arterial Bipass 05/2022No [...] Date: 06/07/2025 Generated for Vanessa rodriguez/Namita/Reyitting on: 06/12/2025 11:14 AM EDT History and Physical [...]
--- NOTE | 2025-06-12 09:34 | MHC.OFFVIS ---
Vital Signs 06/12/25 09:52 Height 5 ft 10 in Weight 153 lb BMI 22.0 BP 135/65 Blood Pressure Location Lt brachial Position Sitting Pulse 98 Intake Visit Reasons: Discuss abd US 06-05-25 Intake Note: Patient of Dr Calderón is seeen in office for ultrasound results, following for gallbladder. 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 Accompanied by: Family/Other Allergies doxycycline Allergy (Verified 06/12/25 09:38) Hives nabumetone Adverse Reaction (Unknown, Verified 06/12/25 09:38) green stools Medication List - Last Reconciled 06/12/25 by Henry Packer MD amlodipine 10 mg PO DAILY 90 days aspirin (Adult Aspirin Regimen) 81 mg PO DAILY bisacodyl 20 mg (4 x 5 mg) PO ONCE 1 day budesonide-formoterol 160-4.5 mcg/actuation (Symbicort) 2 inhalations PO BID clopidogrel 75 mg PO DAILY codeine-guaifenesin 10-100 mg/5 mL 10 mL PO Q4-6H PRN 1 week ibuprofen 800 mg PO Q8H PRN 90 days ipratropium-albuterol 20-100 mcg/actuation (Combivent Respimat) 1 puff inhalation Q6H PRN 90 days losartan 25 mg PO DAILY nicotine 10 mg inhalation 3XD 30 days nicotine 1 spray intranasal TID 30 days pantoprazole 40 mg PO DAILY polyethylene glycol 3350 (Miralax) 238 grams PO ONCE rosuvastatin 20 mg PO DAILY sildenafil 100 mg PO DAILY PRN HPI Comments Details: 64-year-old male patient presenting for follow-up examination following diagnosis of a large gallbladder polyp. He was initially evaluated by Dr. Calderón and found to have a 9.5 mm gallbladder polyp. Patient at the time was not interested in pursuing surgery and returns today following a six-month follow-up ultrasound. This again reveals a gallbladder polyp which is essentially the same. The patient reports that his sister is being treated for metastatic ovarian cancer and now he is very concerned himself regarding the possibility of this being a gallbladder cancer. He denies any nausea, vomiting, fever or chills. He generally feels well and denies any right upper quadrant abdominal pain as well. I reviewed the repeat ultrasound studies in detail. He would like to proceed with a cholecystectomy. [facility] Medical History Snoring Excessive daytime sleepiness Bronchitis Abnormal LFTs ETOH abuse Hereditary hemochromatosis Atherosclerotic cardiovascular disease Bilateral carotid artery stenosis PAD (peripheral artery disease) Murmur HTN (hypertension) Hyperlipidemia COPD (chronic obstructive pulmonary disease) SOB (shortness of breath) Allergic rhinitis Nicotine dependence, cigarettes, uncomplicated GERD (gastroesophageal reflux disease) Tubular adenoma of colon Porphyria cutanea tarda Arthritis Surgical History History of femoropopliteal bypass History of femoropopliteal bypass (11/02/23) S/P angiogram of extremity History of colonoscopy History of esophagogastroduodenoscopy History of lipoma History of skin graft History of removal of cyst History of foot surgery Family History Father Diabetes Stroke Hypertension Mother Chronic mental illness Family/Other FH: mental illness Social History Household Members: Spouse Housing: House Are you a primary primary care physician to a significant other at home: No Do you presently have visiting nurse or other home services: No 75 years or older and lives alone: No Alcohol intake: current Alcohol intake frequency: a few times a month Alcohol type: beer Comment: residual pain in left foot, but much improved and tolerable per patient. 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 occupational exposures/hazards: No Cognitive needs: No Hearing needs: No Vision needs: Yes Review of Systems Const All systems reviewed & are unremarkable except as noted in HPI and below Physical Exam Const General: comfortable Nutritional Appearance: well nourished Orientation/consciousness: patient oriented x3 Limitations: no limitations Resp Effort & Inspection: normal respiratory effort, no audible wheezes, no cough and no respiratory distress GI Inspection: Yes normal to inspection Palpation (GI): Soft to palpation, nontender, no guarding and not rigid Auscultation: normal bowel sounds Rectal Exam - Male: Yes deferred Skin Other: Warm, dry, no rash Neuro General: patient oriented x3 Extrem General: Yes no clubbing, cyanosis or edema Results Reviewed Results Reviewed: Ultrasound abdomen: Assessment & Plan Assessment & Plan (1) Gallbladder polyp: Code(s): K82.4 - Cholesterolosis of gallbladder Category: Surgical Plan 64-year-old male patient presenting for re-evaluation of a large gallbladder polyp returning for six-month follow-up examination. He continues to have no abdominal symptoms however now is more worried about leaving the large gallbladder polyp given his family history of ovarian cancer. After discussion of the procedure, risks, and alternatives, he consents to a laparoscopic or possible open cholecystectomy. This will be performed as a short-stay surgery at his earliest convenience. Coding Level of Care Code Est Pt Level 4 (36174) Diagnoses Gallbladder polyp K82.4
[2025-06-12 09:52] VITALS: BP 135/65; PULSE 98; BMI 22.0
--- OUTSIDE RECORDS SUMMARY | 2025-06-12 11:14 | XMS_ITS | Patient Health Record ---
Author Organization Ashish Huertas III, MD Address [address] RODRIGUEZ [address] [place], [place] [address] [address] Care Team Providers Care Lean Facilitator Name Role Phone Ashish Huertas Primary Care [...] yet rev iewed by provider) Interpretation: Performing Lab:[facility], [address] [place] [phone] Notes/Report: Routine Culture Report - external Routine Culture 4+ Mixed skin wesley O:CANPAR Tereza parapsilosis Routine Culture Quant Org ID Routine Culture 2+ US arterial duplex BI w/ KAI Reviewed date:09/24/2024 07:13:25 AM Interpretation: Performing Lab: Notes/Report: [address] [address] Ultrasound Report Signed Patient: Sid Landeros MR#: [id number] : 1960 Acct:[id number] Age/Sex: 63 / M ADM Date: 08/22/24 Loc: HO.US Attending Dr: Jhony Orr MD Ordering Physician: Jhony Orr MD Date of Service: 08/22/24 Procedure(s): US arterial duplex BI w/ KAI Accession Number(s): [id number] cc: Ashish Huertas MD; Jhony Orr MD [...] 06:31 PM [facility] Dictated By: Twyla Beaver Signed By: <Electronically signed by Twyla Beaver in OV> 09/23/24 1831 DD/ 1133 TD/TT: 08/22/24 1210 Entry Level Programmer: [address] [address] Ultrasound Report Signed Patient: Marlo Landeros MR#: [id number] : 1960 Acct:[id number] Age/Sex: 63 / M ADM Date: 08/22/24 Loc: . Attending Dr: Jhony Orr MD Ordering Physician: Jhony Orr MD Date of Service: 08/22/24 Procedure(s): US arterial duplex BI w/ KAI Accession Number(s): [id number] cc: Ashish Huertas MD; Jhony Orr MD [...] 09/23/24 1831 DD/ 1133 TD/TT: 08/22/24 1210 Entry Level Programmer: US abdomen complete Reviewed date:02/16/2025 05:27:55 AM Interpretation: Performing Lab: Notes/Report: [address] [address] Ultrasound Report Signed Patient: Sid Landeros MR#: [id number] : 1960 Acct:[id number] Age/Sex: 64 / M ADM Date: 11/29/24 Loc: HO.US Attending Dr: Wen Diaz MD Ordering Physician: Wen Diaz MD Date of Service: 11/29/24 Procedure(s): US abdomen complete Accession Number(s): [id number] cc: Ashish Huertas MD; Wen Diaz MD [...] 11/30/24 0739 DD/ 1033 TD/TT: 11/29/24 1054 Entry Level Programmer: [address] [address] Ultrasound Report Signed Patient: Marlo Landeros MR#: [id number] : 1960 Acct:[id number] Age/Sex: 64 / M ADM Date: 11/29/24 Loc: HO.US Attending Dr: Wen Diaz MD Ordering Physician: Wen Diaz MD Date of Service: 11/29/24 Procedure(s): US abdomen complete Accession Number(s): [id number] cc: Ashish Huertas MD; Wen Diaz MD [...] 11/30/24 0739 DD/ 1033 TD/TT: 11/29/24 1054 Entry Level Programmer: ABEL Gram stain (Not yet reviewed by provider) Interpretation: Performing Lab:[address] [address] Notes/Report: Gram stain Gram stain results: Gram stain No polys Gram stain 1+ epithelial cells Gram stain 1+ Gram-positive cocci Gram stain 1+ Gram-positive rods Complete Blood Count Auto Di ff (Not yet reviewed by provider) Interpretation: Performing Lab:[address] [address] Notes/Report: White Blood Count 4.1 4.8-10.8 X10*3/uL [...] NRBC Abs Auto 0.000 0.0-0.012 X10*3/uL Comprehensive [place]. Panel Fa (Not yet reviewed by provider) Interpretation: Performing Lab:[facility], [address] [place] [phone] Notes/Report: Sodium 132 135-145 mmol/L Potassium 4.3 [...] yet reviewe d by provider) Interpretation: Performing Lab:[facility], [address] [place] [phone] Notes/Report: Triglycerides 55 <150 mg/dL Desirable Triglyceride: [...] ot yet reviewed by provider) Interpretation: Performing Lab:[facility], [address] [place] [phone] Notes/Report: Prostate Specific Antigen 1.08 <0.05-4.0 ng/mL PSA methodology: Coyne Alinity i Chemiluminescent Microparticle Immunoassay (CMIA) US abdomen limited (Not yet reviewed by provider) Interpretation: Performing Lab: Notes/Report: [address] [address] Ultrasound Report Signed Patient: Sid Landeros MR#: [id number] : 1960 Acct:[id number] Age/Sex: 64 / M ADM Date: 06/05/25 Loc: HO.US Attending Dr: Victor Manuel Calderón MD Ordering Physician: Victor Manuel Calderón MD Date of Service: 06/05/25 Procedure(s): US abdomen limited Accession Number(s): [id number] cc: Ashish Huertas MD; Victor Manuel Calderón MD Reason for Exam: K82.4 - Cholesterolosis of gallbladder EXAMINATION: US ABDOMEN LIMITED HISTORY: K82.4 - Cholesterolosis of gallbladder TECHNIQUE: Real-time grayscale ultrasound imaging of the right upper quadrant was performed and images were reviewed. COMPARISON: Comparison is made with the prior examination dated 11/29/2024. FINDINGS: Liver: The right lobe of the liver measures 13.9 cm in size. The left lobe of the liver measures 15.7 cm in size. The liver demonstrates increased echotexture, consistent with steatosis. No focal mass or intrahepatic biliary ductal dilatation is identified. There is normal hepatopedal flow in the portal vein. Gallbladder and biliary tree: Again seen are multiple polyps within the gallbladder measuring up to 10 mm in size. Scattered echogenic foci along the gallbladder wall may represent adenomyomatosis. The gallbladder is otherwise unremarkable, without evidence of calculi, wall thickening, or pericholecystic fluid. There is no sonographic Son sign. The common bile duct is normal in caliber measuring 3 mm. Right Kidney: The right kidney measures 11.7 cm in length. The right kidney is unremarkable, without evidence of masses, hydronephrosis, or calculi. Pancreas: The pancreatic head, neck, and body are unremarkable. The pancreatic tail is obscured by bowel gas. Abdominal aorta and inferior vena cava: The visualized portions of the abdominal aorta and inferior vena cava are normal in caliber. There is no free fluid in the right upper quadrant. US/US abdomen limited IMPRESSION: Stable gallbladder polyps. Possible adenomyomatosis of the gallbladder. Electronically signed by: Ashish Manriquez MD 06/05/2025 08:45 AM EDT Dictated By: Ashish Manriquez MD Signed By: <Electronically signed by Ashish Marniquez MD in OV> 06/05/25844 DD/ 1 TD/TT: 06/05/25812 Entry Level Programmer: [place] [address] Ultrasound Report Signed Patient: Marlo Landeros MR#: [id number] : 1960 Acct:[id number] Age/Sex: 64 / M ADM Date: 06/05/25 Loc: HO.US Attending Dr: Callie Meier MD Ordering Physician: Victor Manuel Calderón MD Date of Service: 06/05/25 Procedure(s): US abdomen limited Accession Number(s): [id number] cc: Ashish Huertas MD; Victor Manuel Calderón MD Reason for Exam: K82 .4 - Cholesterolosis of gallbladder EXAMINATION: US ABDO MEN LIMITED HISTORY: K82.4 - Cholesterolosis of gallbladder TECHNIQUE: Real-time grayscale ultrasound imaging of the right upper quadrant was perform ed and images were reviewed. COMPARISON: Comparis on is made with the prior examination dated 11/29/2024. FINDINGS: Liver: The right lob e of the liver measures 13.9 cm in size. The left lobe of the liver measures 15.7 cm in size. The liver demonstrates increased echotextur e, consistent with steatosis. No focal mass or intrahepatic biliary ductal dilatation is identified. There is normal hepatopedal flow in the portal vein. Gallbladder and bili federico tree: Again seen are multiple polyps within the gallbladder measurin g up to 10 mm in size. Scattered echogenic foci along the gallbladde r wall may represent adenomyomatosis. The gallbladder is otherwise unremarkable, without evidence of calculi, wall thickening, or pericholecystic fluid. There is no sonographic Son sign. The com mon bile duct is normal in caliber measuring 3 mm. Right Kidney: The ri ght kidney measures 11.7 cm in length. The right kidney is unremarkab le, without evidence of masses, hydronephrosis, or calculi. Pancreas: The pancreatic head, neck, and body are unremarkable. The pancreatic tail is obscured by bowel gas. Abdominal aorta and inferior vena cava: The visualized portions of the abdominal aorta and inferior vena cava are normal in caliber. There is no free flu id in the right upper quadrant. US/US abdomen limited IMPRESSION: Stable gallbladder polyps. Possible adenomyomatosis of the gallbladder. Electronically julio c d by: Ashish Manriquez MD 06/05/2025 08:45 AM EDT Dictated By: Ashish Manriquez MD Signed By: <Electronically signed by Ashish Manriquez MD in OV> 06/05/2545 DD/ 0802 TD/TT: 06/05/25 0813 Entry Level Programmer: Reason For Referral No Information Medications Medication SIG (Take, Route, Frequency, Duration) Notes Start Date End Date Status Symbicort 160-4.5 MCG/ACT 2 puffs Inhala tion Twice a day Active Clopidogrel Bisulfate 75 MG 1 tablet Ora lly Once a day 08/02/2024 Active Combivent Respimat 20-100 MCG/ACT 1 puff as needed Inhalation every 6 hrs Active Ibuprofen 800 MG Oral Act henrry Sildenafil Citrate 100 MG 1 tablet as ne eded Orally Once a day 10/28/2024 Active Losartan Potassium 25 MG 1 tablet Orally Once a day 01/10/2025 Active amLODIPine Besylate 10 MG 1 tablet Orall y Once a day Active Pantoprazole Sodium 40 MG one tablet miguel angel ly Orally Once a day 10/04/2024 Active Rosuvastatin Calcium 20 MG 1 tablet Oral ly Once a day Active Sulfamethoxazole-Trimethopr im 800-160 [...] Status W/U Status Risk Notes Problem Hyperlipidemia (41540287) Hyperlipidemia (E78.5) Active confirmed Comprehensive blood work with a fasting lipid profile is being done periodically. Problem 047696244 Overweight (E66.3) Active confirmed His body mass index is now 23.6 and this problem has resolved. Problem Hypertension (54421132) Hypertension (I10) Active confirmed His blood pressure has been 134/77. No change in his regimen was made. I encouraged him to pursue aggressive sodium restriction. He was given an appointment to come to the office and recheck his blood pressure.He will continue on the losartan given by cardiology. 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 He affirms that if he goes into direct sunlight. He will experience blisters and skin lesions. He is well versed in how to prevent this and has medications for his skin. Problem 318640267 Other hemochromatosis (E83.118) Active confirmed We will resume the phlebotomy at one-month intervals until he is iron deficient and than every 4 months. Problem 632674087 Acute bronchitis due to other specified organisms (J20.8) Active confirmed He is producing green phlegm and says he is wheezing. The inhaler is helping. He was given a Zithromax and prednisone with a follow-up visit. Problem Benign prostatic hyperplasia (839384558) BPH (benign prostatic hyperplasia) (N40.0) Active confirmed He arises from sleep about once a night to urinate. We have discussed lifestyle modifications he could make to reduce this. Problem 61979803 Tobacco dependence (F17.200) Active confirmed He continues to smoke a package of cigarettes every day. We discussed the health consequences of this. His COPD has been stable and inactive recently. I made him aware of the smoking cessation programs and the local hospitals and this community. Problem COPD - Chronic obstructive pulmonary disease (10158488) COPD (chronic obstructive pulmonary disease) (J44.9) Active [...] lung cancer, COPD, oxygen dependence, etc. Problem 875700046 Ear infection (H66.90) Active confirmed He has complete d a course of antibiotics for the skin inflammation on each year. A repeat culture grew only Tereza. The appearance is much improved. Problem 33908719 Viral syndrome (B34.9) Active confirmed I'm going to speak to him on a daily basis because of the risk of progression of respiratory disease. He has continued to smoke and has COPD. He will continue to use his inhalers as directed. If necessary he will be given oral prednisone and an antibiotic. Problem 15965335 Pilonidal cyst (L05.91) Active confirmed He had an excision and repair of this cyst years ago. It is healed and no longer bothers him. Problem 816290775 Peripheral arterial disease (I73.9) Active confirmed His claudicatio n is stable at 1 block. He recently saw the vascular surgeon. He recently underwent a revision of his left femoral-popliteal bypass graft. The wound is now healed. He experiences some claudication in his right leg and is able to walk one block without stopping to rest. Problem 184677004 Age-related incipient cataract of both eyes (H25.093) Active confirmed He is schedul ed for cataract extraction sequentially later this month. I have taken. A careful history and examined him thoroughly. There is no contraindication to surgery at this time. The benefit is great in the risk is small. He is given medical clearance for both procedures. Problem 302607045 Lumbar radiculopathy, right (M54.16) Active confirmed He continues to have pain that comes from his lower lumbar spine and right paravertebral muscles that radiates into his right buttock. X-rays have shown degenerative disease. The pain is aggravated with walking more than 10 feet and lifting more than 10 pounds. He has been referred to [facility] for physical therapy injections imaging and evaluation for surgery. Problem 22083543 Acute diffuse otitis externa of both ears (H60.313) Active confirmed The left ear wa s primarily involved. The otic canalWas uninvolved. The tympanic membrane was normal. A prescription for Bactrim was given to him. Problem 67137354 Staphylococcus infection (B95.8) Active confirmed This seems to b e a recurrence of a previous infection which was successfully treated. Was begun on an antibiotic and a culture was sent. Follow-up visit was arranged. Vital Signs Heart Rate 96 /min 06/07/2025 Temperature 98.2 degrees Fahrenheit 06/07/2025 Oximetry 98 % 02/28/2025 Blood pressure diastolic 68 mm Hg 06/07/2025 Height 70 in 06/07/2025 Blood pressure systolic 134 mm Hg 06/07/2025 Weight 153 lbs 06/07/2025 BMI 21.95 kg/m2 06/07/2025 Encounters Encounter Location Date Provider Diagnosis Ashish Huertas III, MD [address] [place] [address] [place] [address] 08/02/2024 Ashish Huertas Infection of pelvis M86.9 ; Peripheral arterial disease I73.9 ; COPD (chronic obstructive pulmonary disease) J44.9 ; Lumbar radiculopathy, right M54.16 ; BPH (benign prostatic hyperplasia) N40.0 and Hypertension I10 Ashish Huertas III, MD [address] [place] [address] [place] [address] 08/15/2024 Ashish Huertas Infection of pelvis M86.9 ; Hypertension I10 ; BPH (benign prostatic hyperplasia) N40.0 ; COPD (chronic obstructive pulmonary disease) J44.9 ; Peripheral arterial disease I73.9 and Lumbar radiculopathy, right M54.16 Ashish Huertas III, MD [address] [place] [address] [place] [address] 10/28/2024 Ashish Huertas Hypertension I10 ; C OPD (chronic obstructive pulmonary disease) J44.9 ; BPH (benign prostatic hyperplasia) N40.0 ; Peripheral arterial disease I73.9 ; Tobacco dependence F17.200 ; Porphyria cutanea tarda E80.1 ; Lumbar radiculopathy, right M54.16 and Overweight E66.3 Ashish Huertas III, MD [address] [place] [address] [place] [address] 11/15/2024 Ashish Huertas Acute bronchitis due to other specified organisms J20.8 ; COPD (chronic obstructive pulmonary disease) J44.9 ; Tobacco dependence F17.200 ; Lumbar radiculopathy, right M54.16 ; Porphyria cutanea tarda E80.1 ; Hyperlipidemia E78.5 ; Hypertension I10 and Peripheral arterial disease I73.9 Ashish Huertas III, MD [address] [place] [address] [place] [address] 01/10/2025 Ashish Huertas Acute diffuse otitis externa of both ears H60.313 ; Lumbar radiculopathy, right M54.16 ; Hypertension I10 ; BPH (benign prostatic hyperplasia) N40.0 ; Peripheral arterial disease I73.9 ; Tobacco dependence F17.200 ; Porphyria cutanea tarda E80.1 and COPD (chronic obstructive pulmonary disease) J44.9 Ashish Huertas III, MD [address] [place] [address] [place] [address] 01/18/2025 Ashish Huertas Acute bronchitis due to other specified organisms J20.8 ; Hypertension I10 ; BPH (benign prostatic hyperplasia) N40.0 ; COPD (chronic obstructive pulmonary disease) J44.9 ; Peripheral arterial disease I73.9 and Lumbar radiculopathy, right M54.16 Ashish Huertas III, MD [address] [place] [address] [place] [address] 01/23/2025 Ashish Huertas Viral syndrome B34.9 ; COPD (chronic obstructive pulmonary disease) J44.9 ; Hypertension I10 ; BPH (benign prostatic hyperplasia) N40.0 ; Peripheral arterial disease I73.9 ; Tobacco dependence F17.200 ; Porphyria cutanea tarda E80.1 and Lumbar radiculopathy, right M54.16 Ashish Huertas III, MD [address] [place] [address] [place] [address] 02/14/2025 Ashish Huertas Staphylococcus infec tion B95.8 ; Hypertension I10 ; BPH (benign prostatic hyperplasia) N40.0 ; COPD (chronic obstructive pulmonary disease) J44.9 ; Peripheral arterial disease I73.9 ; Lumbar radiculopathy, right M54.16 ; Tobacco dependence F17.200 and Porphyria cutanea tarda E80.1 Ashish Huertas III, MD [address] [place] [address] [place] [address] 02/28/2025 Ashish Huertas BPH (benign prostati c hyperplasia) N40.0 ; Age-related incipient cataract of both eyes H25.093 ; Overweight E66.3 ; Hyperlipidemia E78.5 ; Ear infection H66.90 and COPD (chronic obstructive pulmonary disease) J44.9 Ashish Huertas III, MD [address] [place] [address] [place] [address] 06/07/2025 Ashish Huertas Tobacco dependence F17.200 ; Other hemochromatosis E83.118 ; COPD (chronic obstructive pulmonary disease) J44.9 ; Hypertension I10 ; BPH (benign prostatic hyperplasia) N40.0 and Pilonidal cyst L05.91 Ashish Huertas III, MD [address] [place] [address] [place] [address] 07/01/2024 Ashish Huertas III, MD [address] [place] [address] [place] [address] 10/04/2024 Ashish Huertas Infection of pelvis M86.9 Ashish Huertas III, MD [address] [place] [address] [place] [address] 11/21/2024 Ashish Huertas III, MD [address] [place] [address] [place] [address] 11/21/2024 Ashish Huertas III, MD [address] [place] [address] [place] [address] 12/19/2024 Ashish Huertas III, MD [address] [place] [address] [place] [address] 01/24/2025 Ashish Huertas III, MD [address] [place] [address] [place] [address] 04/07/2025 Ashish Huertas Assessments Encounter Date Diagnosis [...] cancer, COPD, oxygen dependence, etc. 01/10/2025 Lumbar radiculopathy , right (ICD-10 - M54.16) He continues to have pain that comes from his lower lumbar spine and right paravertebral muscles that radiates into his right buttock. X-rays have shown degenerative disease. The pain is aggravated with walking more than 10 feet and lifting more than 10 pounds. He has been referred to [facility] for physical [...] Follow-up visit was arranged. 02/28/2025 BPH (benign prostati c hyperplasia) (ICD-10 - N40.0) He arises from sleep about once a night to urinate. We have discussed lifestyle modifications he could make to reduce this. 02/28/2025 Age-related incipien t cataract of both eyes (ICD-10 - H25.093) He is scheduled for cataract extraction sequentially later this month. I have taken. A careful history and examined him thoroughly. There is no contraindication to surgery at this time. The benefit is great in the risk is small. He is given medical clearance for both procedures. 06/07/2025 Other hemochromatosi s (ICD-10 - E83.118) We will resume the phlebotomy at one-month intervals until he is iron deficient and than every 4 months. 06/07/2025 Tobacco dependence (ICD-10 - F17.200) He [...] COPD, oxygen dependence, etc. 08/15/2024 BPH (benign prostati c hyperplasia) (ICD-10 - N40.0) He rises from sleep usually once a night occasionally twice. We have discussed lifestyle modifications he can make to reduce nocturia. 10/28/2024 BPH (benign prostati c hyperplasia) (ICD-10 - N40.0) He rises from [...] losartan given by cardiology. 01/18/2025 BPH (benign prostati c hyperplasia) (ICD-10 - N40.0) He rises from [...] losartan given by cardiology. 02/14/2025 BPH (benign prostati c hyperplasia) (ICD-10 - N40.0) He rises from sleep usually once a night occasionally twice. We have discussed lifestyle modifications he can make to reduce nocturia. 02/28/2025 Overweight (ICD-10 - E66.3) His body mass index is now 23.6 and this problem has resolved. 06/07/2025 COPD (chronic obstructive pulmonary disease) (ICD-10 [...] cancer, COPD, oxygen dependence, etc. 08/02/2024 Lumbar radiculopathy , right (ICD-10 - M54.16) He continues to have pain that comes from his lower lumbar spine and right paravertebral muscles that radiates into his right buttock. X-rays have shown degenerative disease. The pain is aggravated with walking more than 10 feet and lifting more than 10 pounds. He has been referred to [facility] for physical [...] block without stopping to rest. 11/15/2024 Lumbar radiculopathy , right (ICD-10 - M54.16) He continues to have pain that comes from his lower lumbar spine and right paravertebral muscles that radiates into his right buttock. X-rays have shown degenerative disease. The pain is aggravated with walking more than 10 feet and lifting more than 10 pounds. He has been referred to [facility] for physical therapy injections imaging and evaluation for surgery. 01/10/2025 BPH (benign prostati c hyperplasia) (ICD-10 - N40.0) He rises from [...] COPD, oxygen dependence, etc. 01/23/2025 BPH (benign prostati c hyperplasia) (ICD-10 - N40.0) He rises from sleep usually once a night occasionally twice. We have discussed lifestyle modifications he can make to reduce nocturia. 02/14/2025 COPD (chronic obstructive pulmonary disease) (ICD-10 - J44.9) 02/28/2025 Hyperlipidemia (ICD-10 - E78.5) Comprehensive blood work with a fasting lipid profile is being done periodically. 06/07/2025 Hypertension (ICD-10 - I10) His blood pressure has been 134/77. No change in his regimen was made. I encouraged him to pursue aggressive sodium restriction. He was given an appointment to come to the office and recheck his blood pressure.He will continue on the losartan given by cardiology. 08/02/2024 BPH (benign prostati c hyperplasia) (ICD-10 - N40.0) He rises from [...] diagnosis of porphyria was made by a polymerization kettle operator at [facility]. He affirms that [...] without stopping to rest. 02/28/2025 Ear infection (ICD-1 0 - H66.90) He has completed a course of antibiotics for the skin inflammation on each year. A repeat culture grew only Tereza. The appearance is much improved. 06/07/2025 BPH (benign prostati c hyperplasia) (ICD-10 - N40.0) He arises from sleep about once a night to urinate. We have discussed lifestyle modifications he could make to reduce this. 08/02/2024 Hypertension (ICD-10 - I10) His blood pressure is 148/82. No change in his regimen was made. I encouraged him to pursue aggressive sodium restriction. He was given an appointment to come to the office and recheck his blood pressure. 08/15/2024 Lumbar radiculopathy , right (ICD-10 - M54.16) He continues to have pain that comes from his lower lumbar spine and right paravertebral muscles that radiates into his right buttock. X-rays have shown degenerative disease. The pain is aggravated with walking more than 10 feet and lifting more than 10 pounds. He has been referred to [facility] for physical therapy injections imaging and evaluation for surgery. 10/28/2024 Porphyria cutanea tarda (ICD-10 - E80.1) The diagnosis of porphyria was made by a polymerization kettle operator at [facility]. He affirms that [...] local hospitals and this community. 01/18/2025 Lumbar radiculopathy , right (ICD-10 - M54.16) He continues to have pain that comes from his lower lumbar spine and right paravertebral muscles that radiates into his right buttock. X-rays have shown degenerative disease. The pain is aggravated with walking more than 10 feet and lifting more than 10 pounds. He has been referred to [facility] in [facility] spine and sports rehabilitation [facility] for physical therapy injections imaging and evaluation for surgery. 01/23/2025 Tobacco dependence (ICD-10 - F17.200) He continues to smoke a package of cigarettes every day. We discussed the health consequences of this. His COPD has been stable and inactive recently. I made him aware of the smoking cessation programs and the local hospitals and this community. 02/14/2025 Lumbar radiculopathy , right (ICD-10 - M54.16) He continues to have pain that comes from his lower lumbar spine and right paravertebral muscles that radiates into his right buttock. X-rays have shown degenerative disease. The pain is aggravated with walking more than 10 feet and lifting more than 10 pounds. He has been referred to [facility] in [facility] for physical therapy injections imaging and [...] lung cancer, COPD, oxygen dependence, etc. 06/07/2025 Pilonidal cyst (ICD-10 - L05.91) He had an excision and repair of this cyst years ago. It is healed and no longer bothers him. 10/28/2024 Lumbar radiculopathy , right (ICD-10 - M54.16) He continues to have pain that comes from his lower lumbar spine and right paravertebral muscles that radiates into his right buttock. X-rays have shown degenerative disease. The pain is aggravated with walking more than 10 feet and lifting more than 10 pounds. He has been referred to [facility] in [facility] spine [facility] for physical therapy injections imaging and evaluation [...] diagnosis of porphyria was made by a polymerization kettle operator at [facility]. He affirms that if he goes into direct sunlight. He will experience blisters and skin lesions. He is well versed in how to prevent this and has medications for his skin. 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 He affirms that [...] cancer, COPD, oxygen dependence, etc. 01/23/2025 Lumbar radiculopathy , right (ICD-10 - M54.16) He continues to have pain that comes from his lower lumbar spine and right paravertebral muscles that radiates into his right buttock. X-rays have shown degenerative disease. The pain is aggravated with walking more than 10 feet and lifting more than 10 pounds. He has been referred to [facility] spine and sports rehabilitation medicine for physical therapy injections imaging and evaluation for surgery. 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 He affirms that [...] C) 05/23/2024 PROFILE, FASTING (COMPREHENSIVE METABOLI C) 06/07/2025 LIPID PANEL 01/15/2023 LIPID PANEL 09/15/2022 GGT 06/07/2025 PSA, TOTAL 09/23/2023 PSA, TOTAL 10/28/2024 PSA, TOTAL 02/28/2025 PSA, TOTAL 05/23/2024 PSA, TOTAL 01/15/2023 PSA, TOTAL 09/15/2022 CBC w DIFF 06/07/2025 CBC w DIFF 09/23/2023 CBC w DIFF 02/28/2025 CBC w DIFF 01/15/2023 CBC w DIFF 09/15/2022 XR LUMBAR SPINE 09/23/2023 VITAMIN D 25-OH TOTAL 09/15/2022 CBC WITH AUTO DIFF 10/28/2024 CBC WITH AUTO DIFF 05/23/2024 Complete Blood Count Auto Diff Comprehensive [place]. Panel Fast Ferritin 06/07/2025 Lipid Panel 04/06/2025 Lipid Panel 09/23/2023 Lipid Panel 10/28/2024 Lipid Panel 06/07/2025 Lipid Panel 02/28/2025 Lipid Panel 05/23/2024 Prostate Specific Antigen 04/06/2025 Gram stain 02/14/2025 US abdomen limited 06/05/2025 XR thoracic spine 3V 11/27/2023 Routine Culture 02/14/2025 Routine Culture 02/09/2024 Routine Culture 01/10/2025 Next Appt Details Provider Name:Ashish Huertas, 09/06/2025 10:30:00 AM, [address] [place] [address] [address], [place], [address], Provider Name:Ashish Huertas, 10/31/2025 02:00:00 PM, [address] [place] [address] [address], [place], [address], Insurance Providers Payer Name Payer Address Payer Phone Subscriber Number Group Number Insured Name Patient Relationship to Insured Coverage Start Date Coverage End Date [facility] [address] [place], [place] [id number] Sid Landeros Self - patient is the insured [address] [place] [address] [phone] [id number] Sid Landeros Self - patient is the insured Medical (General) History Medical History History ICD Code COPD (chronic obstructive pulmonary dise ase) J44.9 Hypertension I10 Erectile dysfunction Peripheral vascular disease Environmental allergies History of repaired pilonidal cyst Excised lipoma, left triceps, age 8 Porphyria cutanea tarda, Dr. Brady, [facility] Tobacco dependence Covid19 infection 2021 [...] doctor reported that they were 'pumping terrific'. Hemochromatosis Surgical History Surgery Date(Month/Year) No history Arterial Bipass 05/2022 Colonoscopy, [facility], Dr. Ramos Fracture of 2 fingers Repair of pilonidal cyst Excision of lipoma, left triceps, age 8 Esophagogastricduodoscopy Femoral -popliteal arterial bypass [facility] 05/2022 Hospitalization History Reason Date(Month/Year)
--- OUTSIDE RECORDS SUMMARY | 2025-06-12 11:14 | XMS_ITS | Clinical Summary ---
Author Organization [facility] Address [address] [place] [address] Care Team Providers Care Information Systems Project Manager Name Role Phone Goldie Watkins MD Primary [...] age to complete this topic Care Teams Information Systems Project Manager Relationship Specialty Start Date End Date Goldie Watkins MD [address] [place] [address] , [address] [facility] D/B/A: [facility] CARLOS Melendrez [id number] PCP - General Internal Medicine 06/08/17
== END 2025-06-12 09:55 | disposition home or self-care (01) ==
LOC: HO.HGS 09:25
PROVIDERS: PCP Internal Medicine Medical Oncology; Visit Provider Surgery
DX: K82.4 Cholesterolosis of gallbladder (principal)
CPT/HCPCS: 99214

== ENCOUNTER 2025-06-14 14:02 | Outpatient (REF) | payer OTHER, SELFPAY ==
--- OUTSIDE RECORDS SUMMARY | 2025-02-14 10:00 | XMS_ITS ---
Author Organization Ashish Huertas III, MD Address [address] [place] [address] Care Team Providers Care Jelly Filter Tender Name Role Phone Ashish Huertas Primary Care Provider Allergies Allergen (clinical drug ingredient) Drug/Non Drug Allergy documented on EMR Reaction Allergy Type Onset Date Status doxycycline Doxycycline Unknown Drug Allergy Act henrry Results Component Value Reference Range Notes Routine Culture (Not yet rev iewed by provider) Interpretation: Performing Lab:[facility], [address] [place] [phone] Notes/Report: Routine Culture Report - external Routine [...] day Active Ibuprofen 800 MG Oral Act hnerry Social History Tobacco Use: Social History Observation [...] Problem Status W/U Status Risk Notes Problem [id number] Staphylococcus infection (B95.8) Active confirmed This seems [...] Provider Diagnosis Ashish Huertas III, MD [address] [place] [address] [place] [address] 02/14/2025 Ashish Huertas Staphylococcus infec tion B95.8 [...] 10 pounds. He has been referred to [facility] spine and sports rehabilitation medicine for [...] diagnosis of porphyria was made by a ballistic expert at [facility]. He affirms that if he [...] OV Provider Name:Ashish Huertas, 09/06/2025 10:30:00 AM, [address] [place] [address] [address], [place], [address], Provider Name:Ashish Huertas, 10/31/2025 02:00:00 PM, [address] [place] [address] [address], [place], [phone], Progress Notes * Sid LANDEROS MDOB: 2 (64 yo M)Acc No.[id number]:02/14/2025 Progress Notes Patient: Sid COBOS Provider: Frantz Huertas MD :1960 A ge:64 Y S ex:Male Date:02/14/2025 Address:[address] [place] [address] [id number] Subjective: * Chief Complaints: * b ilateral [...] Surgical History: [place] [place]Esophagogastricduodoscopy Excision of lipoma, left triceps, age 8 Repair of pilonidal cyst Fracture of 2 fingers Colonoscopy, [facility], Dr. Ramos Arterial Bipass 05/2022No history [...] 10 pounds. He has been referred to [facility] [...] diagnosis of porphyria was made by a ballistic expert at [facility]. He affirms that if he [...] 02/14/2025 Generated for Vanessa rodriguez/Namita/Reyitting on: 0 06/14/2025 05:46 PM EDT History and Physical Notes * [...]
--- OUTSIDE RECORDS SUMMARY | 2025-02-28 11:30 | XMS_ITS ---
Author Organization Ashish Huertas III, MD Address [address] [facility] [place] [place] [address] Care Team Providers Care Md Physician Dermatologist Name Role Phone Ashish Huertas Primary Care [...] Problem Status W/U Status Risk Notes Problem [id number] Ear infection (H66.90) Active confirmed He has complete d a course of antibiotics for the skin inflammation on each year. A repeat culture grew only Tereza. The appearance is much improved. Problem 277149601 Age-related incipient cataract of both eyes (H25.093) [...] Date Provider Diagnosis Ashish Huertas III, MD [address] [place] [address] [place] [address] 02/28/2025 Ashish Huertas BPH (benign prostati c [...] Provider Name:Ashish Huertas, 09/06/2025 10:30:00 AM, [address] [facility] [address], [place], [address], Provider Name:Ashish Huertas, 10/31/2025 02:00:00 PM, [address] [facility] [address], [place], [address], Progress Notes * Sid LANDEROS MDOB: 2 (64 yo M)Acc No.[id number]:02/28/2025 Patient: Sid COBOS Mili Provider: Frantz Huertas MD :1960 A ge:64 Y S ex:Male Date:02/28/2025 Address:[address] [place] [address] KEVIN [place]-[id number] Subjective: * Chief Complaints: * M edical [...] Surgical History: F emoral [place] [place]Esophagogastricduodoscopy Excision of lipoma, left triceps, age 8 Repair of pilonidal cyst Fracture of 2 fingers Colonoscopy, [facility], Dr. Ramos Arterial Bipass 05/2022No history [...] 02/28/2025 Generated for Vanessa rodriguez/Namita/Reyitting on: 0 06/14/2025 [...]
--- OUTSIDE RECORDS SUMMARY | 2025-04-07 05:42 | XMS_ITS ---
Author Organization Ashish Huertas III, MD Address [address] [facility] [place] [address] Care Team Providers Care Spin Instructor Name Role Phone Ashish Huertas Primary Care Provider REASON FOR VISIT Needs call back from Social History Sex Assigned At : Social History Observation Description Sex Assigned At Male Encounters Encounter Location Date Provider Diagnosis Ashish Huertas III, MD [address] [place] [address] [place] [address] 04/07/2025 Ashish Huertas Plan Of Treatment Next Appt Details Provider Name:Ashish Huertas, 09/06/2025 10:30:00 AM, [address] [place] [address] [place], [address], Provider Name:Ashish Huertas, 10/31/2025 02:00:00 PM, [address] [place] [address] [place], [address], Progress Notes * Sid LANDEROS MDOB: 2 (64 yo M)Acc No.[id number]:04/07/2025 Patient: Sid COBOS :1960 A ge:64 Y S ex:Male Address:[address] [place], [address] * true * Date: Generated for Printi ng/Faxing/eTransmitting on: 0 06/14/2025 05:46 PM EDT
--- OUTSIDE RECORDS SUMMARY | 2025-06-02 05:00 | XMS_ITS ---
Author Organization Ashish Huertas III, MD Address [address] [facility] [place] [address] Care Team Providers Care Shoe Repairman Name Role Phone Ashish Huertas Primary Care [...] Provider Diagnosis Ashish Huertas III, MD [address] [place] [address] [place] [address] 06/02/2025 Ashish Huertas Plan Of Treatment Medication [...] Details Provider Name:Ashish Huertas, 09/06/2025 10:30:00 AM, [address] [place] [address] [address], [place], [id number], Provider Name:Ashish Huertas, 10/31/2025 02:00:00 PM, [address] [place] [address] [address], [place], [id number], Progress Notes * Sid LANDEROS MDOB: 2 (64 yo M)Acc No.[id number]:06/02/2025 Progress Notes Patient: Sid COBOS Provider: Frantz Huertas MD :1960 A ge:64 Y S ex:Male Date:06/02/2025 Address:[address] [place] [address] [place], [id number] Subjective: * Chief Complaints: * 1 . [...] age 8, Porphyria cutanea tarda, Dr. Brady, [facility], Tobacco dependence, Covid19 infection 2021, [...] Surgical History: F emoral -popliteal arterial bypass @[facility] 05/2022, Esophagogastricduodoscopy , Excision of lipoma, left triceps, age 8 , Repair of pilonidal cyst , Fracture of 2 fingers , Colonoscopy, [facility], Dr. Ramos , Arterial Bipass 05/2022, [...] Date: 06/02/2025 Generated for Vanessa rodriguez/Namita/Reyitting on: 06/14/2025 05:46 PM EDT History and Physical [...]
--- OUTSIDE RECORDS SUMMARY | 2025-06-07 11:00 | XMS_ITS ---
Author Organization Ashish Huertas III, MD Address [address] [place] [address] Care Team Providers Care Cobbler Apprentice Name Role Phone Ashish Huertas Primary Care Provider Allergies Allergen (clinical drug ingredient) Drug/Non Drug Allergy documented on EMR Reaction Allergy Type Onset Date Status doxycycline Doxycycline Unknown Drug Allergy Act henrry Results Component Value Reference Range Notes Ferritin (Not yet reviewed b y provider) Interpretation: Performing Lab:[facility], [address] [place] [phone] Notes/Report: Ferritin 68 20-250 ng/mL REASON FOR [...] Problem Status W/U Status Risk Notes Problem [id number] Other hemochromatosis (E83.118) Active confirmed We will [...] Date Provider Diagnosis Ashish Huertas III, MD [address] [place] [address] [place] [address] 06/07/2025 Ashish Huertas Tobacco dependence F17.200 ; [...] OV Provider Name:Ashish Huertas, 09/06/2025 10:30:00 AM, [address] [place] [address] , [facility] [address], [place], [address], Provider Name:Ashish Huertas, 10/31/2025 02:00:00 PM, [address] [place] [address] [address], [place], [address], Progress Notes * Sid LANDEROS MDOB: 2 (64 yo M)Acc No.[id number]:06/07/2025 Progress Notes Patient: Sid COBOS Provider: Frantz Huertas MD :1960 A ge:64 Y S ex:Male Date:06/07/2025 Address:[address] [place] [address], [id number] Subjective: * Chief Complaints: * O titisCOPDHypertensionPorphyriaTobacco [...] F [place] [place]Esophagogastricduodoscopy Excision of lipoma, left triceps, age 8 Repair of pilonidal cyst Fracture of 2 fingers Colonoscopy, [facility], Dr. Ramos Arterial Bipass 05/2022No history [...] Date: 06/07/2025 Generated for Vanessa rodriguez/Namita/Braydensmitting on: 06/14/2025 05:46 PM EDT History and [...]
[2025-06-14 14:50] LABS: MANUAL DIFF FLAG NO
[2025-06-14 14:52] LABS: Hematocrit 39.6 % (42.0-52.0); Hemoglobin 14.5 g/dl (14.0-18.0); Imm Gran Abs Auto 0.01 X10*3/uL (0.00-0.03); Imm Gran Pct Auto 0.2 % (0.0-0.4); Lymphocytes Absolute Auto 0.8 X10*3/uL (1.2-4.9); Mean Corpuscular HGB Conc 36.6 g/dl (31.0-36.0); Mean Corpuscular Hemoglobin 33.2 pg (27.0-33.0); Mean Corpuscular Volume 90.6 fL (80.0-98.0); NRBC Abs Auto 0.000 X10*3/uL (0.0-0.012); NRBC Pct Auto 0.0 /100WBC (0.0-0.2); Platelet Count 202 X10*3/uL (160-400); Red Blood Count 4.37 X10*6/uL (4.60-5.80); White Blood Count 5.6 X10*3/uL (4.8-10.8)
[2025-06-14 15:59] LABS: Ferritin 68 ng/mL (20-250)
--- OUTSIDE RECORDS SUMMARY | 2025-06-14 17:47 | XMS_ITS | Clinical Summary ---
Author Organization [facility] Address [address] [place] [address] Care Team Providers Care Vice President Name Role Phone Goldie Watkins MD Primary [...] age to complete this topic Care Teams Vice President Relationship Specialty Start Date End Date Goldie Watkins MD [address] [place] [address] , [address] [facility] D/B/A: [facility] CARL[place] Melendrez [phone] PCP - General Internal Medicine 06/08/17
--- OUTSIDE RECORDS SUMMARY | 2025-06-14 17:47 | XMS_ITS | Patient Health Record ---
Author Organization Ashish Huertas III, MD Address [address] RODRIGUEZ [address] [place] [phone] Care Team Providers Care City Superintendent Name Role Phone Ashish Huertas Primary Care [...] yet rev iewed by provider) Interpretation: Performing Lab:[facility], [address] [place] [phone] Notes/Report: Routine Culture Report - external Routine Culture 4+ Mixed skin wesley O:CANPAR Tereza parapsilosis Routine Culture Quant Org ID Routine Culture 2+ Ferritin (Not yet reviewed b y provider) Interpretation: Performing Lab:[facility], [address] [place] [phone] Notes/Report: Ferritin 68 20-250 ng/mL US arterial duplex BI w/ KAI Reviewed date:09/24/2024 07:13:25 AM Interpretation: Performing Lab: Notes/Report: [address] [address] Ultrasound Report Signed Patient: Leti,Sid MR#: [id number] : 1960 Acct:[id number] Age/Sex: 63 / M ADM Date: 08/22/24 Loc: . Attending Dr: Jhony Orr MD Ordering Physician: Jhony Orr MD Date of Service: 08/22/24 Procedure(s): US arterial duplex BI w/ KAI Accession Number(s): [id number] cc: Ashish Huertas MD; Jhony Orr MD [...] by: Sultana Beaver MD 09/23/2024 06:31 PM [facility] Dictated By: Twyla Beaver Signed By: <Electronically signed by Twyla Beaver in OV> 09/23/24 1831 DD/ 1133 TD/TT: 08/22/24 1210 Lead Furnace Operator: [address] [address] Ultrasound Report Signed Patient: Marlo Landeros MR#: [id number] : 1960 Acct:[id number] Age/Sex: 63 / M ADM Date: 08/22/24 Loc: HO.US Attending Dr: Jhony Orr MD Ordering Physician: Jhony Orr MD Date of Service: 08/22/24 Procedure(s): US arterial duplex BI w/ KAI Accession Number(s): [id number] cc: Ashish Huertas MD; Jhony Orr MD [...] by: Sultana Beaver MD 09/23/2024 06:31 PM [facility] Dictated By: Twyla Beaver Signed By: <Electronically signed by Twyla Beaver in OV> 09/23/24 1831 DD/ 1133 TD/TT: 08/22/24 1210 Lead Furnace Operator: US abdomen complete Reviewed date:02/16/2025 05:27:55 AM Interpretation: Performing Lab: Notes/Report: [place] [address] Ultrasound Report Signed Patient: Sid Landeros MR#: [id number] : 1960 Acct:[id number] Age/Sex: 64 / M ADM Date: 11/29/24 Loc: HO.US Attending Dr: Wen Diaz MD Ordering Physician: Wen Diaz MD Date of Service: 11/29/24 Procedure(s): US abdomen complete Accession Number(s): [id number] cc: Ashish Huertas MD; Wen Diaz MD [...] 11/30/24 0739 DD/ 1033 TD/TT: 11/29/24 1054 Lead Furnace Operator: [place] [address] Ultrasound Report Signed Patient: Marlo Landeros MR#: [id number] : 1960 Acct:[id number] Age/Sex: 64 / M ADM Date: 11/29/24 Loc: HO.US Attending Dr: Wen Diaz MD Ordering Physician: Wen Diaz MD Date of Service: 11/29/24 Procedure(s): US abdomen complete Accession Number(s): [id number] cc: Ashish Huertas MD; Wen Diaz MD [...] 11/30/24 0739 DD/ 1033 TD/TT: 11/29/24 1054 Lead Furnace Operator: ABEL Gram stain (Not yet reviewed by provider) Interpretation: Performing Lab:[facility], [address] [place] [phone] Notes/Report: Gram stain Gram stain results: Gram stain No polys Gram stain 1+ epithelial cells Gram stain 1+ Gram-positive cocci Gram stain 1+ Gram-positive rods Complete Blood Count Auto Di ff (Not yet reviewed by provider) Interpretation: Performing Lab:[facility], [address] [place] [phone] Notes/Report: White Blood Count 4.1 4.8-10.8 X10*3/uL [...] NRBC Abs Auto 0.000 0.0-0.012 X10*3/uL Comprehensive Alpine. Panel Fa st (Not yet reviewed by provider) Interpretation: Performing Lab:[facility], [address] [place] [phone] Notes/Report: Sodium 132 135-145 mmol/L Potassium 4.3 [...] yet reviewe d by provider) Interpretation: Performing Lab:[facility], [address] [place] [phone] Notes/Report: Triglycerides 55 <150 mg/dL Desirable Triglyceride: [...] ot yet reviewed by provider) Interpretation: Performing Lab:[facility], [address] [place] [phone] Notes/Report: Prostate Specific Antigen 1.08 <0.05-4.0 ng/mL PSA methodology: Coyne Alinity i Chemiluminescent Microparticle Immunoassay (CMIA) US abdomen limited (Not yet reviewed by provider) Interpretation: Performing Lab: Notes/Report: [address] [address] Ultrasound Report Signed Patient: Sid Landeors MR#: [id number] : 1960 Acct:[id number] Age/Sex: 64 / M ADM Date: 06/05/25 Loc: HO.US Attending Dr: Victor Manuel Calderón MD Ordering Physician: Victor Manuel Calderón MD Date of Service: 06/05/25 Procedure(s): US abdomen limited Accession Number(s): [id number] cc: Ashish Huertas MD; Victor Manuel Calderón [...] signed by Ashish Manriquez MD in OV> 06/05/25 0845 DD/ 0802 TD/TT: 06/05/25 0813 Lead Furnace Operator: [place] [address] Ultrasound Report Signed Patient: Marlo Landeros MR#: [id number] : 1960 Acct:[id number] Age/Sex: 64 / M ADM Date: 06/05/25 Loc: HO.US Attending Dr: Callie Meier MD Ordering Physician: Victor Manuel Calderón MD Date of Service: 06/05/25 Procedure(s): US abdomen limited Accession Number(s): [id number] cc: Ashish Huertas MD; Victor Manuel Calderón [...] signed by Ashish Manriquez MD in OV> 06/05/25844 DD/ 1 TD/TT: 06/05/25812 Lead Furnace Operator: Complete Blood Count Auto Di ff (Not yet reviewed by provider) Interpretation: Performing Lab:[facility], [address] [place] [phone] Notes/Report: White Blood Count 5.6 4.8-10.8 X10*3/uL Red Blood Count 4.37 4.60-5.80 X10*6/uL Hemoglobin 14.5 14.0-18.0 g/dl Hematocrit 39.6 42.0-52.0 % Mean Corpuscular Volume 90.6 80.0-98.0 fL Mean Corpuscular Hemoglobin 33.2 27.0-33.0 pg Mean Corpuscular HGB Conc 36.6 31.0-36.0 g/dl Red Cell Distribution Width 12.0 11.0-16.0 % Platelet Count 202 160-400 X10*3/uL Mean Platelet Volume 8.7 9.4-12.4 fL Neutrophils Percent Auto 73.4 45-73 % Imm Gran Pct Auto 0.2 0.0-0.4 % Lymphocytes Percent Auto 14.0 20-40 % Monocytes Percent Auto 11.5 2-11 % Eosinophils Percent Auto 0.2 0-4 % Basophils Percent Auto 0.7 0-2 % NRBC Pct Auto 0.0 0.0-0.2 /100WBC Neutrophils Absolute Auto 4.1 2.0-8.3 x10*3/u L Imm Gran Abs Auto 0.01 0.00-0.03 X10*3/uL Lymphocytes Absolute Auto 0.8 1.2-4.9 X10*3/u L Monocytes Absolute Auto 0.6 0.1-1.2 X10*3/uL Eosinophils Absolute Auto 0.0 0.0-0.4 X10*3/u L Basophils Absolute Auto 0.0 0.0-0.2 X10*3/uL NRBC Abs Auto 0.000 0.0-0.012 X10*3/uL Therapeutic Phlebotomy (Not yet reviewed by provider) Interpretation: Performing Lab:[facility], [address] [place] [phone] Notes/Report: THER/HGB TNP 14.0-18.0 g/dL Lab Results on file. Performed at [facility] on 06/14/25: Hgb: 14.5 g/dl Hct: 39.6 % THER/HCT TNP 42.0-52.0 % Therapeutic Phlebotomy Phlebotomy Performed 500 mls drawn on 06/14/25. Please note that a copy of this report has been sent to the Primary Care Physician, the ordering physician and any physician designated by patient request. Reason For Referral No Information Medications Medication [...] Status W/U Status Risk Notes Problem Hyperlipidemia (71432240) Hyperlipidemia (E78.5) Active confirmed Comprehensive blood work with a fasting lipid profile is being done periodically. Problem 406862095 Overweight (E66.3) Active confirmed His body mass index is now 23.6 and this problem has resolved. Problem Hypertension (88963834) Hypertension (I10) Active confirmed His blood pressure has been 134/77. No change in his regimen was made. I encouraged him to pursue aggressive sodium restriction. He was given an appointment to come to the office and recheck his blood pressure.He will continue on the losartan given by cardiology. Problem 56432552 Porphyria cutanea tarda (E80.1) Active confirmed The diagnosis o f porphyria was made by a center customer service associate at [facility]. He affirms that if he goes into direct sunlight. He will experience blisters and skin lesions. He is well versed in how to prevent this and has medications for his skin. Problem 810402801 Other hemochromatosis (E83.118) Active confirmed We will resume the phlebotomy at one-month intervals until he is iron deficient and than every 4 months. Problem 126232429 Acute bronchitis due to other specified organisms (J20.8) Active confirmed He is producing green phlegm and says he is wheezing. The inhaler is helping. He was given a Zithromax and prednisone with a follow-up visit. Problem Benign prostatic hyperplasia (521083548) BPH (benign prostatic hyperplasia) (N40.0) Active confirmed He arises from sleep about once a night to urinate. We have discussed lifestyle modifications he could make to reduce this. Problem 18571956 Tobacco dependence (F17.200) Active confirmed He continues to smoke a package of cigarettes every day. We discussed the health consequences of this. His COPD has been stable and inactive recently. I made him aware of the smoking cessation programs and the local hospitals and this community. Problem COPD - Chronic obstructive pulmonary disease (10224026) COPD (chronic obstructive pulmonary disease) (J44.9) Active [...] lung cancer, COPD, oxygen dependence, etc. Problem 882317896 Ear infection (H66.90) Active confirmed He has complete d a course of antibiotics for the skin inflammation on each year. A repeat culture grew only Tereza. The appearance is much improved. Problem 57231641 Viral syndrome (B34.9) Active confirmed I'm going to speak to him on a daily basis because of the risk of progression of respiratory disease. He has continued to smoke and has COPD. He will continue to use his inhalers as directed. If necessary he will be given oral prednisone and an antibiotic. Problem 47744412 Pilonidal cyst (L05.91) Active confirmed He had an excision and repair of this cyst years ago. It is healed and no longer bothers him. Problem 943792637 Peripheral arterial disease (I73.9) Active confirmed His claudicatio n is stable at 1 block. He recently saw the vascular surgeon. He recently underwent a revision of his left femoral-popliteal bypass graft. The wound is now healed. He experiences some claudication in his right leg and is able to walk one block without stopping to rest. Problem 841141143 Age-related incipient cataract of both eyes (H25.093) Active confirmed He is schedul ed for cataract extraction sequentially later this month. I have taken. A careful history and examined him thoroughly. There is no contraindication to surgery at this time. The benefit is great in the risk is small. He is given medical clearance for both procedures. Problem 434880102 Lumbar radiculopathy, right (M54.16) Active confirmed He continues to have pain that comes from his lower lumbar spine and right paravertebral muscles that radiates into his right buttock. X-rays have shown degenerative disease. The pain is aggravated with walking more than 10 feet and lifting more than 10 pounds. He has been referred to [facility] spine and sports rehabilitation medicine for physical therapy injections imaging and evaluation for surgery. Problem 77790898 Acute diffuse otitis externa of both ears (H60.313) Active confirmed The left ear wa s primarily involved. The otic canalWas uninvolved. The tympanic membrane was normal. A prescription for Bactrim was given to him. Problem 52796789 Staphylococcus infection (B95.8) Active confirmed This seems [...] Provider Diagnosis Ashish Huertas III, MD [address] [place] [address] [place] [phone] 08/02/2024 Ashish Huertas Infection of pelvis M86.9 ; Peripheral arterial disease I73.9 ; COPD (chronic obstructive pulmonary disease) J44.9 ; Lumbar radiculopathy, right M54.16 ; BPH (benign prostatic hyperplasia) N40.0 and Hypertension I10 Ashish Huertas III, MD [address] [place] [address] [place] [phone] 08/15/2024 Ashsih Huertas Infection of pelvis M86.9 ; Hypertension I10 ; BPH (benign prostatic hyperplasia) N40.0 ; COPD (chronic obstructive pulmonary disease) J44.9 ; Peripheral arterial disease I73.9 and Lumbar radiculopathy, right M54.16 Ashish Huertas III, MD [address] [place] [address] [place] [phone] 10/28/2024 Ashish Huertas Hypertension I10 ; C OPD (chronic obstructive pulmonary disease) J44.9 ; BPH (benign prostatic hyperplasia) N40.0 ; Peripheral arterial disease I73.9 ; Tobacco dependence F17.200 ; Porphyria cutanea tarda E80.1 ; Lumbar radiculopathy, right M54.16 and Overweight E66.3 Ashish Huertas III, MD [address] [place] [address] [place] [address] 11/15/2024 Ashish Huertas Acute bronchitis due to other specified organisms J20.8 ; COPD (chronic obstructive pulmonary disease) J44.9 ; Tobacco dependence F17.200 ; Lumbar radiculopathy, right M54.16 ; Porphyria cutanea tarda E80.1 ; Hyperlipidemia E78.5 ; Hypertension I10 and Peripheral arterial disease I73.9 Ashish Huertas III, MD [address] [place] [address] [place] [address] 01/10/2025 Ashish Huertas Acute diffuse otitis externa of both ears H60.313 ; Lumbar radiculopathy, right M54.16 ; Hypertension I10 ; BPH (benign prostatic hyperplasia) N40.0 ; Peripheral arterial disease I73.9 ; Tobacco dependence F17.200 ; Porphyria cutanea tarda E80.1 and COPD (chronic obstructive pulmonary disease) J44.9 Ashish Huertas III, MD [address] [place] [address] [place] [address] 01/18/2025 Ashish Huertas Acute bronchitis due to other specified organisms J20.8 ; Hypertension I10 ; BPH (benign prostatic hyperplasia) N40.0 ; COPD (chronic obstructive pulmonary disease) J44.9 ; Peripheral arterial disease I73.9 and Lumbar radiculopathy, right M54.16 Ashish Huertas III, MD [address] [place] [address] [place] [phone] 01/23/2025 Ashish Huertas Viral syndrome B34.9 ; COPD (chronic obstructive pulmonary disease) J44.9 ; Hypertension I10 ; BPH (benign prostatic hyperplasia) N40.0 ; Peripheral arterial disease I73.9 ; Tobacco dependence F17.200 ; Porphyria cutanea tarda E80.1 and Lumbar radiculopathy, right M54.16 Ashish Huertas III, MD [address] [place] [address] [place] [address] 02/14/2025 Ashish Huertas Staphylococcus infec tion B95.8 ; Hypertension I10 ; BPH (benign prostatic hyperplasia) N40.0 ; COPD (chronic obstructive pulmonary disease) J44.9 ; Peripheral arterial disease I73.9 ; Lumbar radiculopathy, right M54.16 ; Tobacco dependence F17.200 and Porphyria cutanea tarda E80.1 Ashish Huertas III, MD [address] [place] [address] [place] [address] 02/28/2025 Ashish Huertas BPH (benign prostati c hyperplasia) N40.0 ; Age-related incipient cataract of both eyes H25.093 ; Overweight E66.3 ; Hyperlipidemia E78.5 ; Ear infection H66.90 and COPD (chronic obstructive pulmonary disease) J44.9 Ashish Huertas III, MD [address] [place] [address] [place] [address] 06/07/2025 Ashish Huertas Tobacco dependence F17.200 ; Other hemochromatosis E83.118 ; COPD (chronic obstructive pulmonary disease) J44.9 ; Hypertension I10 ; BPH (benign prostatic hyperplasia) N40.0 and Pilonidal cyst L05.91 Ashish Huertas III, MD [address] [place] [address] [place] [phone] 07/01/2024 Ashish Huertas III, MD [address] [place] [address] [place] [address] 10/04/2024 Ashish Huertas Infection of pelvis M86.9 Ashish Huertas III, MD [address] [place] [address] [place] [phone] 11/21/2024 Ashish Huertas III, MD [address] [place] [address] [place] [phone] 11/21/2024 Ashish Huertas III, MD [address] [place] [address] [place] [phone] 12/19/2024 Ashish Huertas III, MD [address] [place] [address] [place] [address] 01/24/2025 Ashish Huertas III, MD [address] [place] [address] [place] [phone] 04/07/2025 Ashish Huertas Assessments Encounter Date Diagnosis [...] 10 pounds. He has been referred to [facility] spine [facility] sports rehabilitation medicine for [...] 10 pounds. He has been referred to [facility] in [facility] for physical therapy injections imaging and [...] 10 pounds. He has been referred to [facility] in [facility] for physical therapy injections imaging and [...] diagnosis of porphyria was made by a center customer service associate at [facility]. He affirms [...] 10 pounds. He has been referred to [facility] spine and sports rehabilitation medicine for physical therapy injections imaging and evaluation for surgery. 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 He affirms [...] 10 pounds. He has been referred to [facility] in [facility] for physical therapy injections imaging and [...] 10 pounds. He has been referred to [facility] in [facility] for physical therapy injections imaging and [...] 10 pounds. He has been referred to [facility] spine and sports rehabilitation medicine for [...] diagnosis of porphyria was made by a center customer service associate at [facility]. He affirms that if he goes into direct sunlight. He will experience blisters and skin lesions. He is well versed in how to prevent this and has medications for his skin. 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 He affirms [...] 10 pounds. He has been referred to [facility] spine and sports rehabilitation medicine for physical therapy injections imaging and evaluation for surgery. 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 He affirms [...] DIFF 05/23/2024 Complete Blood Count Auto Diff Complete Blood Count Auto Diff Comprehensive Alpine. Panel Fast Ferritin 06/07/2025 Lipid Panel 04/06/2025 Lipid Panel 09/23/2023 Lipid Panel 10/28/2024 Lipid Panel 06/07/2025 Lipid Panel 02/28/2025 Lipid Panel 05/23/2024 Prostate Specific Antigen 04/06/2025 Gram stain 02/14/2025 US abdomen limited 06/05/2025 XR thoracic spine 3V 11/27/2023 Routine Culture 02/14/2025 Routine Culture 02/09/2024 Routine Culture 01/10/2025 Therapeutic Phlebotomy 06/14/2025 Next Appt Details Provider Name:Ashish Huertas, 09/06/2025 10:30:00 AM, [address] [place] [address] JENNIFER SEGAL, [place], [phone], Provider Name:Ashish Escobedorne, 10/31/2025 02:00:00 PM, [address] [place] [address] JENNIFER SEGAL, [place], [phone], Insurance Providers Payer Name Payer Address Payer Phone Subscriber Number Group Number Insured Name Patient Relationship to Insured Coverage Start Date Coverage End Date [facility] [address] [place], [place] [id number] Sid Landeros Self - patient is the insured [address] [place] [address] [phone] [id number] Sid Landeros Self - patient is the insured Medical (General) History Medical History History ICD Code COPD (chronic obstructive pulmonary dise ase) J44.9 Hypertension I10 Erectile dysfunction Peripheral vascular disease Environmental allergies History of repaired pilonidal cyst Excised lipoma, left triceps, age 8 Porphyria cutanea [place], Dr. Brady, [facility] Tobacco dependence Covid19 infection 2021 Lumbar [...] Date(Month/Year) No history Arterial Bipass 05/2022 Colonoscopy, [facility], Dr. Ramos Fracture of 2 fingers Repair of pilonidal cyst Excision of lipoma, left triceps, age 8 Esophagogastricduodoscopy Femoral -popliteal arterial bypass @[facility] [place] [place] 05/2022 Hospitalization History Reason Date(Month/Year)
== END 2025-06-14 14:03 | disposition home or self-care (01) ==
LOC: HO.BBR 14:02
PROVIDERS: PCP Internal Medicine Medical Oncology; Visit Provider Internal Medicine Medical Oncology
DX: E83.110 Hereditary hemochromatosis (principal)
CPT/HCPCS: 36415; 82728; 85025

== ENCOUNTER 2025-06-15 13:41 | Outpatient (AMB) | payer BC, OTHER, SELFPAY ==
--- OUTSIDE RECORDS SUMMARY | 2025-02-14 10:00 | XMS_ITS ---
Author Organization Ashish Huertas III, MD Address [address] [place] [address] Care Team Providers Care Evp [employer] Sales Name Role Phone Ashish Huertas Primary Care Provider [phone] Allergies Allergen (clinical drug ingredient) Drug/Non Drug Allergy documented on EMR Reaction Allergy Type Onset Date Status doxycycline Doxycycline Unknown Drug Allergy Act henrry Results Component Value Reference Range Notes Routine Culture (Not yet rev iewed by provider) Interpretation: Performing Lab:[facility], [address] [place] [phone] Notes/Report: Routine Culture Report - external Routine Culture 4+ Mixed skin wesley O:CANPAR Tereza parapsilosis Routine Culture Quant Org ID Routine Culture 2+ REASON FOR VISIT bilateral ear infection, Otitis externa, COPD, Hypertension, Tobacco dependence, Benign prostatic hypertrophy, Lumbar radiculopathy Medications Medication SIG (Take, Route, Frequency, Duration) Notes Start Date End Date Status Sulfamethoxazole-Trimethop rim 800-160 MG 1 tablet Orally twice a day for 14 days 02/14/2025 04/11/2025 Active amLODIPine Besylate 10 MG 1 tablet Orall y Once a day Active Clopidogrel Bisulfate 75 MG 1 tablet Orally Once a day 08/02/2024 Active Losartan Potassium 25 MG 1 tablet Orally Once a day 01/10/2025 Active Sildenafil Citrate 100 MG 1 tablet as ne eded Orally Once a day 10/28/2024 Active Pantoprazole Sodium 40 MG one tablet miguel angel ly Orally Once a day 10/04/2024 Active Combivent Respimat 20-100 MCG/ACT 1 puff as needed Inhalation every 6 hrs Active Rosuvastatin Calcium 20 MG 1 tablet Oral ly Once a day Active Symbicort 160-4.5 MCG/ACT 2 puffs Inhala tion Twice a day Active Ibuprofen 800 MG Oral Act henrry Social History Tobacco Use: Social History Observation [...] Problem Status W/U Status Risk Notes Problem [id number] Staphylococcus infection (B95.8) Active confirmed This seems to be a recurrence of a previous infection which was successfully treated. Was begun on an antibiotic and a culture was sent. Follow-up visit was arranged. Vital Signs Temperature 98.1 degrees Fahrenheit 02/15/20 25 Blood pressure systolic 110 mm Hg 02/15/20 25 Blood pressure diastolic 80 mm Hg 025 Heart Rate 98 /min 02/14/2025 Height 70 in 02/14/2025 Weight 167 lbs 02/14/2025 BMI 23.96 kg/m2 02/14/2025 Encounters Encounter Location Date Provider Diagnosis Ashish Huertas III, MD [address] [place] [address] [place] [address] 02/14/2025 Ashish Huertas Staphylococcus infec tion B95.8 ; Hypertension I10 ; BPH (benign prostatic hyperplasia) N40.0 ; COPD (chronic obstructive pulmonary disease) J44.9 ; Peripheral arterial disease I73.9 ; Lumbar radiculopathy, right M54.16 ; Tobacco dependence F17.200 and Porphyria cutanea tarda E80.1 Assessments Encounter Date Diagnosis (ICD Code) Assessment Notes Treat ment Notes Treatment Clinical Notes 02/14/2025 Staphylococcus infection (ICD-10 - B95.8) This seems to be a recurrence of a previous infection which was successfully treated. Was begun on an antibiotic and a culture was sent. Follow-up visit was arranged. 02/14/2025 Hypertension (ICD-10 - I10) His blood pressure has been 134/77. No change in his regimen was made. I encouraged him to pursue aggressive sodium restriction. He was given an appointment to come to the office and recheck his blood pressure.He will continue on the losartan given by cardiology. 02/14/2025 BPH (benign prostatic hyperplasia) (ICD-10 - N40.0) He rises from sleep usually once a night occasionally twice. We have discussed lifestyle modifications he can make to reduce nocturia. 02/14/2025 COPD (chronic obstructive pulmonary disease) (ICD-10 - J44.9) 02/14/2025 Peripheral arterial disease (ICD-10 - I73.9) His claudication is stable at 1 block. He recently saw the vascular surgeon. He recently underwent a revision of his left femoral-popliteal bypass graft. The wound is now healed. He experiences some claudication in his right leg and is able to walk one block without stopping to rest. 02/14/2025 Lumbar radiculopathy, right (ICD-10 - M54.16) He continues to have pain that comes from his lower lumbar spine and right paravertebral muscles that radiates into his right buttock. X-rays have shown degenerative disease. The pain is aggravated with walking more than 10 feet and lifting more than 10 pounds. He has been referred to [facility] spine and sports rehabilitation medicine for physical therapy injections imaging and evaluation for surgery. 02/14/2025 Tobacco dependence (ICD-10 - F17.200) He continues to smoke a package of cigarettes every day. We discussed the health consequences of this. His COPD has been stable and inactive recently. I made him aware of the smoking cessation programs and the local hospitals and this community. 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 He affirms that if he goes into direct sunlight. He will experience blisters and skin lesions. He is well versed in how to prevent this and has medications for his skin. Plan Of Treatment Medication Medication Name Sig Start Date Stop Date Notes Sulfamethoxazole-Trimethopri m 800-160 MG 1 tablet Orally twice a day for 14 days 02/14/2025 04/11/2025 amLODIPine Besylate 10 MG 1 tablet Orally Once a day Clopidogrel Bisulfate 75 MG 1 tablet Orally Once a day 01/2024 Losartan Potassium 25 MG 1 tablet Orally Once a day 2024 Sildenafil Citrate 100 MG 1 tablet as ne eded Orally Once a day 10/28/2024 Pantoprazole Sodium 40 MG one tablet miguel angel ly Orally Once a day 10/04/2024 Combivent Respimat 20-100 MCG/ACT 1 puff as needed Inhalation every 6 hrs Rosuvastatin Calcium 20 MG 1 tablet Orally Once a day Symbicort 160-4.5 MCG/ACT 2 puffs Inhala tion Twice a day Ibuprofen 800 MG Oral Pending Test Test Name Order Date Routine Culture 02/14/2025 Next Appt Details Follow Up: As Scheduled, Elisabet son: OV Provider Name:Ashish Huertas, 09/06/2025 10:30:00 AM, [address] [place] [address] [address], [place], [phone], Provider Name:Ashish Huertas, 10/31/2025 02:00:00 PM, [address] [place] [address] [address], [place], [phone], Progress Notes * Sid LANDEROS MDOB: 2 (64 yo M)Acc No.[id number]:02/14/2025 Progress Notes Patient: Sid COBOS Provider: Frantz Huertas MD :1960 A ge:64 Y S ex:Male Date:02/14/2025 Address:[address] [place] [address] [id number] Subjective: * Chief Complaints: * b ilateral ear infection, Otitis externaCOPDHypertensionTobacco dependenceBenign prostatic hypertrophyLumbar radiculopathy * HPI: v : In the recent past he developed a soft tissue staph aureus infection of the ear canals and the pinnae, it was sensitive to most antibiotics and was eradicated with Bactrim. It has now relapsed. There is a crusting red erythematous infection of both ear canals in the bottom half of each ear. There is no discharge. A culture was obtained and he was given a prescription for Bactrim double strength for 14 days. * ROS: G eneral/Constitutional: pain o nly normal aches and pains. C hills d enies.?Fatigue a dmits. F ever d enies. E NT: Decreased hearing d enies. R espiratory: Cough d enies. C ardiovascular: Chest pain with exertion d enies. D yspnea on exertion?denies. S hortness of breath d enies. G astrointestinal: Constipation o ccasional. D ecreased appetite d enies. D iarrhea d enies. H eartburn d enies. N ausea d enies. R ectal bleeding d enies. V omiting d enies. H ematology: bruising d enies. p etechiae d enies. S wollen glands n one have been noted. G enitourinary: Frequent urination d enies. M usculoskeletal: Muscle aches d enies. P ainful joints d enies. S ciatica d enies. W eakness d enies. S kin: Itching d enies. R flako B oth external ears and ear canals. S kin lesion(s) d enies. N eurologic: Difficulty speaking d enies. D izziness d enies.?Headache d enies. L ow back pain d enies. P sychiatric: Depressed mood d enies. * Medical History: * Surgical History: F emoral -popliteal arterial bypass [place] [place]/2022Esophagogastricduodoscopy Excision of lipoma, left triceps, age 8 Repair of pilonidal cyst Fracture of 2 fingers Colonoscopy, [facility], Dr. Ramos Arterial Bipass 05/2022No history * Hospitalization/Major Diagno stic Procedure: N o history * Social History: T obacco Use: T [...] one tablet daily Orally Once a day Rosuvastatin Calcium 20 MG Tablet 1 tablet Orally Once a day Combivent Respimat 20-100 MCG/ACT Aerosol Solution 1 puff as needed Inhalation every 6 hrs Ibuprofen 800 MG Tablet Oral Symbicort 160-4.5 MCG/ACT Aerosol 2 puffs Inhalation Twice a day Clopidogrel Bisulfate 75 MG Tablet 1 tablet Orally Once a day Sildenafil Citrate 100 MG Tablet 1 tablet as needed Orally Once a day Losartan Potassium 25 MG Tablet 1 tablet Orally Once a day amLODIPine Besylate 10 MG Tablet 1 tablet Orally Once a day Medication List reviewed and reconciled with the patientTaking Pantoprazole Sodium 40 MG Tablet Delayed Release one tablet daily Orally Once a day Taking Rosuvastatin Calcium 20 MG Tablet 1 tablet Orally Once a day Taking Combivent Respimat 20-100 MCG/ACT Aerosol Solution 1 puff as needed Inhalation every 6 hrs Taking Ibuprofen 800 MG Tablet Oral Taking Symbicort 160-4.5 MCG/ACT Aerosol 2 puffs Inhalation Twice a day Taking Clopidogrel Bisulfate 75 MG Tablet 1 tablet Orally Once a day Taking Sildenafil Citrate 100 MG Tablet 1 tablet as needed Orally Once a day Taking Losartan Potassium 25 MG Tablet 1 tablet Orally Once a day Taking amLODIPine Besylate 10 MG Tablet 1 tablet Orally Once a day Medication List reviewed and reconciled with the patient * Allergies: D oxycyclineno[Allergies Verified] Objective: * Vitals: H t: 70, Wt: 167, BMI:23.96, BP: 110/80, HR: 98, Temp: 98.1, Ht-cm: 177.8, Wt-k.75. * Examination: G eneral Examination: GENERAL APPEARANCE: p leasant, well nourished, well developed, in no acute distress, calm and relaxed, man. HEAD: a traumatic, normocephalic. EYES: e ros, perrla, anicteric, conjugate. EARS: E rythematous scaling infection in both ear canals and both lower ears, tympanic membranes unremarkable. NOSE: s eptum intact. ORAL CAVITY: n ormal, unremarkable. NECK/THYROID: n o jugular venous distention, no carotid bruit, thyroid normal. LYMPH NODES: n o enlarged lymph nodes,spleen normal. SKIN: n o suspicious lesions, anicteric. HEART: n o clicks, gallops, murmurs, or rubs, regular rhythm, S1, S2 normal, no s3, or vascular bruits. LUNGS: , diminished breath sounds throughout, no wheezes, rales, rhonchi, good air movement. BREASTS: no masses palpable bilaterally. ABDOMEN: b owel sounds normal, no ascites, no organomegaly, no mass. RECTAL EXAM: n ot examined. MUSCULOSKELETAL: e xtremities unremarkable, no clubbing, cyanosis or edema. PERIPHERAL PULSES: n ormal. NEUROLOGIC: a lert and oriented, cranial nerves 2-12 grossly intact, deep tendon reflexes 2+ symmetrical, motor strength normal upper and lower extremities, sensory exam intact. PSYCH: a lert, oriented. Assessment: * Assessment: 1. S taphylococcus infection - B95.8 (Primary) N otes :This seems to be a recurrence of a previous infection which was successfully treated. Was begun on an antibiotic and a culture was sent. Follow-up visit was arranged. 2 . H ypertension - I10 N [...] OPD (chronic obstructive pulmonary disease) - J44.9 5 .?Peripheral arterial disease - I73.9 N otes :His [...] He has been referred to [facility] spine and sports rehabilitation medicine for physical therapy injections imaging and evaluation for surgery. 7 . T obacco dependence - F17.200 N otes :He continues to smoke a package of cigarettes every day. We discussed the health consequences of this. His COPD has been stable and inactive recently. I made him aware of the smoking cessation programs and the local hospitals and this community. 8 . P orphyria cutanea tarda - E80.1 N otes :The diagnosis of porphyria was made by a human machine interface engineer at [facility]. He affirms that if he goes into direct sunlight. He will experience blisters and skin lesions. He is well versed in how to prevent this and has medications for his skin. Plan: * Treatment: 2. O thers Start Sulfamethoxazole-Trimethoprim Tablet, 800-160 MG, 1 tablet, Orally, twice a day, 14 days, 28 Tablet, Refills 3. * Labs: * L ab: Routine Culture (Collection Date & Time - 02/14/2025 02:30 PM) Value Reference Range R outine Culture 2+ - * O :CANPAR Tereza parapsilosis - * Procedure Codes: * Preventive Medicine: Counseling: S moking/Tobacco Use Patient counseled on the dangers of tobacco use and urged to quit. 0 02/14/2025 Patient Lifestyle Goals P atient wants to [...] and family, Reduce number of ED and hospitalizations. T reatment Goals Q uit Smoking. B arriers n o barriers. S elf-Managment Goals M kelly a plan for quitting smoking. * Follow Up: A s Scheduled (Reason: OV) * Images: * Sign off status: Completed true * Provider: Frantz Huertas MD Date: 0 02/14/2025 Generated for Vanessa rodriguez/Namita/Reyitting on: 0 06/15/2025 03:39 PM EDT History and Physical Notes * Examination Category Sub-Category Detail Notes General Examination GENERAL APPEARANCE: pleasant , well nourished, well developed, in no acute distress, calm and relaxed, man HEAD: atraumatic, normocep halic EYES: eomi, perrla, anicte jagruti, conjugate EARS: Erythematous scaling infection in both ear canals and both lower ears, tympanic membranes unremarkable NOSE: septum intact NECK/THYROID: no jugular venous [...]
--- OUTSIDE RECORDS SUMMARY | 2025-02-28 11:30 | XMS_ITS ---
Author Organization Ashish Huertas III, MD Address [address] [facility] [address] [place] [address] Care Team Providers Care Crop Or Grain Farmworker Name Role Phone Ashish Huertas Primary Care [...] Problem Status W/U Status Risk Notes Problem [id number] Ear infection (H66.90) Active confirmed He has complete d a course of antibiotics for the skin inflammation on each year. A repeat culture grew only Tereza. The appearance is much improved. Problem 269242553 Age-related incipient cataract of both eyes (H25.093) [...] Date Provider Diagnosis Ashish Huertas III, MD [address] [place] [address] [place] [address] 02/28/2025 Ashish Huertas BPH (benign prostati c [...] 3 Months, Reason: OV Provider Name:Ashish Huertas, 09/06/2025 10:30:00 AM, [address] [facility] [address], [place], [address], Provider Name:Ashish Huertas, 10/31/2025 02:00:00 PM, [address] [facility] [address], [place], [address], Progress Notes * Sid LANDEROS MDOB: 2 (64 yo M)Acc No.[id number]:02/28/2025 Patient: Sid COBOS Mili Provider: Frantz Huertas MD :1960 A ge:64 Y S ex:Male Date:02/28/2025 Address:[address] [place] [address] [id number] Subjective: * Chief Complaints: * M edical [...] Surgical History: F [place] [place]Esophagogastricduodoscopy Excision of lipoma, left triceps, age 8 Repair of pilonidal cyst Fracture of 2 fingers Colonoscopy, [facility], Dr. Ramos Arterial Bipass 05/2022No history [...] MD Date: 0 02/28/2025 Generated for Vanessa rodriguez/Namita/Reyitting on: 0 06/15/2025 03:38 PM EDT History and Physical Notes * [...]
--- OUTSIDE RECORDS SUMMARY | 2025-04-07 05:42 | XMS_ITS ---
Author Organization Ashish Huertas III, MD Address [address] [facility] [address] Care Team Providers Care Esthetician/Spa Coordinator Name Role Phone Ashish Huertas Primary Care Provider REASON FOR VISIT Needs call back from Social History Sex Assigned At : Social History Observation Description Sex Assigned At Male Encounters Encounter Location Date Provider Diagnosis Ashish Huertas III, MD [address] [place] [address] [place] [address] 04/07/2025 Ashish Huertas Plan Of Treatment Next Appt Details Provider Name:Ashish Huertas, 09/06/2025 10:30:00 AM, [address] [place] [address] [place], [address], Provider Name:Ashish Huertas, 10/31/2025 02:00:00 PM, [address] [place] [address] [place], [address], Progress Notes * Sid LANDEROS MDOB: 2 (64 yo M)Acc No.[id number]:04/07/2025 Patient: Sid COBOS :1960 A ge:64 Y S ex:Male Address:[address] [place], [address] * true * Date: Generated for Printi ng/Faxing/eTransmitting on: 0 06/15/2025 03:38 PM EDT
--- OUTSIDE RECORDS SUMMARY | 2025-06-02 05:00 | XMS_ITS ---
Author Organization Ashish Huertas III, MD Address [address] [facility] [place] [address] Care Team Providers Care Performance Test Architect Name Role Phone Ashish Huertas Primary Care Provider [phone] Allergies Allergen (clinical drug ingredient) Drug/Non Drug [...] Date Provider Diagnosis Ashish Huertas III, MD [address] [place] [address] [place] [address] 06/02/2025 Ashish Huertas Plan Of Treatment Medication [...] Details Provider Name:Ashish Huertas, 09/06/2025 10:30:00 AM, [address] [place] [address] [address], [place], [address], Provider Name:Ashish Huertas, 10/31/2025 02:00:00 PM, [address] [place] [address] [address], [place], [address], Progress Notes * Sid LANDEROS MDOB: 2 (64 yo M)Acc No.[id number]:06/02/2025 Progress Notes Patient: Sid COBOS Provider: Frantz Huertas MD :1960 A ge:64 Y S ex:Male Date:06/02/2025 Address:[address] [place] [address] [place], [place]-[id number] Subjective: * Chief Complaints: * 1 . [...] age 8, Porphyria cutanea tarda, Dr. Brady, [facility], Tobacco dependence, Covid19 infection 2021, Lumbar [...] Surgical History: F emoral -popliteal arterial [place] 05/2022, Esophagogastricduodoscopy , Excision of lipoma, left triceps, age 8 , Repair of pilonidal cyst , Fracture of 2 fingers , Colonoscopy, [facility], Dr. Ramos , Arterial Bipass 05/2022, [...] Date: 06/02/2025 Generated for Vanessa rodriguez/Namita/Reyitting on: 06/15/2025 03:38 PM EDT History and Physical [...]
--- OUTSIDE RECORDS SUMMARY | 2025-06-07 11:00 | XMS_ITS ---
Author Organization Ashish Huertas III, MD Address [address] [place] [address] Care Team Providers Care Electric Meter Repairer Helper Name Role Phone Ashish Huertas Primary Care Provider Allergies Allergen (clinical drug ingredient) Drug/Non Drug Allergy documented on EMR Reaction Allergy Type Onset Date Status doxycycline Doxycycline Unknown Drug Allergy Act henrry Results Component Value Reference Range Notes Ferritin (Not yet reviewed b y provider) Interpretation: Performing Lab:[facility], [address] [place] [phone] Notes/Report: Ferritin 68 20-250 ng/mL REASON FOR [...] Problem Status W/U Status Risk Notes Problem [id number] Other hemochromatosis (E83.118) Active confirmed We will [...] Provider Diagnosis Ashish Huertas III, MD [address] [place] [address] [place] [address] 06/07/2025 Ashish Huertas Tobacco dependence F17.200 ; Other hemochromatosis [...] 06/07/2025 GGT 06/07/2025 CBC w DIFF 06/07/2025 Ferritin 06/07/2025 Lipid Panel 06/07/2025 Next Appt Details Follow Up: 3 Months, Reason: OV Provider Name:Ashish Huertas, 09/06/2025 10:30:00 AM, [address] [place] [address] , [facility] [address], [place], [address], Provider Name:Ashish Huertas, 10/31/2025 02:00:00 PM, [address] [place] [address] [address], [place], [address], Progress Notes * Sid LANDEROS MDOB: 2 (64 yo M)Acc No.[id number]:06/07/2025 Progress Notes Patient: Sid COBOS Provider: Frantz Huertas MD :1960 A ge:64 Y S ex:Male Date:06/07/2025 Address:[address] [place] [address], [id number] Subjective: * Chief Complaints: * O titisCOPDHypertensionPorphyriaTobacco [...] pilonidal cyst Fracture of 2 fingers Colonoscopy, [facility], Dr. Ramos Arterial Bipass 05/2022No [...] Huertas MD Date: 06/07/2025 Generated for Vanessa rodriguez/Namita/Braydensmitting on: 06/15/2025 03:38 PM EDT History and [...]
[2025-06-15 13:59] VITALS: BP 120/70; PULSE 87; O2SAT 97; BMI 21.8
--- NOTE | 2025-06-15 13:59 | A.OFFVIS_ITS ---
Vital Signs 06/15/25 13:59 Height 5 ft 10 in Weight 152 lb 1.903 oz BMI 21.8 BP 120/70 Blood Pressure Location Lt brachial Position Sitting Pulse 87 Pulse Source Pulse Oximeter Pulse Oximetry (%) 97 Oxygen Delivery Method Room Air Intake Visit Reasons: COPD Intake Note: pt is here for pre-op for possible surgery for gallbladder, no date yet, he states he is feeling good. 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 Allergies doxycycline Allergy (Verified 06/15/25 14:22) Hives nabumetone Adverse Reaction (Unknown, Verified 06/15/25 14:22) green stools Medication List - Last Reconciled 06/15/25 by Natalie Lino MD amlodipine 10 mg PO DAILY 90 days aspirin (Adult Aspirin Regimen) 81 mg PO DAILY bisacodyl 20 mg (4 x 5 mg) PO ONCE 1 day budesonide-formoterol 160-4.5 mcg/actuation (Symbicort) 2 inhalations PO BID clopidogrel 75 mg PO DAILY codeine-guaifenesin 10-100 mg/5 mL 10 mL PO Q4-6H PRN 1 week ibuprofen 800 mg PO Q8H PRN 90 days ipratropium-albuterol 20-100 mcg/actuation (Combivent Respimat) 1 puff inhalation Q6H PRN 90 days losartan 25 mg PO DAILY nicotine 10 mg inhalation 3XD 30 days nicotine 1 spray intranasal TID 30 days pantoprazole 40 mg PO DAILY polyethylene glycol 3350 (Miralax) 238 grams PO ONCE rosuvastatin 20 mg PO DAILY sildenafil 100 mg PO DAILY PRN Do you need a note to return to daycare/school/sports/work: No HPI HPI COPD: Details: MR. WHYTE IS 64 YEARS OLD GENTLEMAN, WITH MODERATELY SEVERE OBSTRUCTIVE AIRWAY DISORDER, DUE TO HIS SMOKING. HE IS DOING WELL ON HIS CURRENT REGIMEN , INCLUDING SYMBICORT AND COMBIVENT RESPIMAT. HE CLAIMS THAT HE CAN WALK AROUND AND WALK UP TO ABOUT 2 BLOCKS WITHOUT GETTING SHORT OF BREATH. HE HAS VERY MINIMAL INTERMITTENT COUGH, .NO WHEEZING ATTACKS HE HAS HAD NO RECENT RESPIRATORY INFECTION. PATIENT UNDERWENT HOME-BASED SLEEP STUDY WHICH WAS NEGATIVE FOR SLEEP APNEA BUT HIS O2 SAT WAS RELATIVELY LOW 89-90% MOST OF THE TIME. HE HAS NOT BEEN USING ANY OXYGEN. THIS GENTLEMAN STILL SMOKES BETWEEN 15-20 CIGARETTES A DAY. [facility] Medical History (Updated 06/15/25 @ 14:34 by Natalie Lino MD) Nocturnal hypoxemia Snoring Excessive daytime sleepiness Bronchitis Abnormal LFTs ETOH abuse Hereditary hemochromatosis Atherosclerotic cardiovascular disease Bilateral carotid artery stenosis PAD (peripheral artery disease) Murmur HTN (hypertension) Hyperlipidemia COPD (chronic obstructive pulmonary disease) SOB (shortness of breath) Allergic rhinitis Nicotine dependence, cigarettes, uncomplicated GERD (gastroesophageal reflux disease) Tubular adenoma of colon Porphyria cutanea tarda Arthritis Surgical History History of femoropopliteal bypass History of femoropopliteal bypass (11/02/23) S/P angiogram of extremity History of colonoscopy History of esophagogastroduodenoscopy History of lipoma History of skin graft History of removal of cyst History of foot surgery Family History Father Diabetes Stroke Hypertension Mother Chronic mental illness Family/Other FH: mental illness Social History Household Members: Spouse Housing: House Are you a primary direct care staffer to a significant other at home: No Do you presently have visiting nurse or other home services: No 75 years or older and lives alone: No Alcohol intake: current Alcohol intake frequency: a few times a month Alcohol type: beer Comment: residual pain in left foot, but much improved and tolerable per patient. 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 occupational exposures/hazards: No Cognitive needs: No Hearing needs: No Vision needs: Yes Review of Systems Const All systems reviewed & are unremarkable except as noted in HPI and below Eyes Reports no additional complaints ENT Reports no additional complaints Card Denies chest pain, Denies irregular heart rhythm and Denies leg edema Resp Reports as per HPI GI Reports no additional complaints Reports erectile dysfunction Musc Reports no additional complaints Skin/Breast Reports system reviewed and no additional complaints, except as documented Neuro Reports no additional complaints Psych Reports no additional complaints Endo Reports no additional complaints Terrell/Lymph Reports other (h/o polycythemia ) Physical Exam Vital Signs: Last Vital Signs Pulse 87 06/15/25 13:59 BP 120/70 06/15/25 13:59 Pulse Ox 97 06/15/25 13:59 Oxygen Delivery Method Room Air 06/15/25 13:59 BMI result Body Mass Index 21.8 Const General: comfortable, no acute distress, alert and awake Orientation/consciousness: patient oriented x3 HEENT Head: Yes normal to inspection General nose exam: No nasal polyps present, No nasal discharge present and Other nasal findings present (MODERATE AMOUNT OF NASAL CONGESTION ESPECIALLY IN LEFT NARE ) Face and sinus: Yes sinuses nontender Mouth: oropharynx normal Teeth and gingiva: other (There is a mild degree of retrognathia of the lower jaw.) Throat: Yes posterior oropharynx normal Eyes General: appearance normal, both eyes and all related structures Neck Neck: Yes normal visual inspection, Yes no lymphadenopathy, Yes trachea midline and Yes no JVD Thyroid: Thyroid normal Chest Chest palpation & inspection: normal inspection of the chest, normal palpation of entire chest wall and no tenderness Resp Other: Percussion note resonant, breath sounds are distant with prolonged expiratory phase. DOES NOT HAVE ANY AUDIBLE WHEEZES OR CREPITATIONS. Cardio Palpation: normal PMI Rate: regular rate Rhythm: regular rhythm Heart sounds: no gallops and no murmurs GI Palpation (GI): Soft to palpation, nontender, No hepatosplenomegaly present and no masses Auscultation: normal bowel sounds Back/Spine/Pelvis Thoracic/Lumbar Spine: thoracic and lumbar spine normal to inspection Skin General skin exam: no rashes or lesions noted Neuro General: patient oriented x3 and no focal motor deficits Cranial nerves: Yes CN's II-XII intact bilaterally Extrem General: Yes normal to inspection, Yes no clubbing, cyanosis or edema and Yes no calf tenderness Psych Appearance: grossly normal and well kempt Speech and movement: Normal speech and movement present Results Reviewed Results Reviewed: HOME-BASED SLEEP STUDY SHOWS NO EVIDENCE OF SLEEP APNEA, BUT HE DOES HAVE BORDERLINE HYPOXEMIA WITH O2 SAT BETWEEN 89-90%.. THIS IS MOSTLY DUE TO HIS CHRONIC OBSTRUCTIVE PULMONARY DISEASE. Assessment & Plan Assessment & Plan (1) Nicotine dependence, cigarettes, uncomplicated: Comment: (current smoker, onset 17yo, 1ppd x 46yrs, had cut it down to few cigarettes a day but In the past 6 months has gone back to 15-20 CIGARETTES a day, Code(s): F17.210 - Nicotine dependence, cigarettes, uncomplicated Category: Medical Plan: COUNSELED TO QUIT SMOKING BUT IT SEEMS TO BE DIFFICULT IN HIS CASE. DOES NOT WANT TO USE NICOTINE PATCH AT THIS TIME. (2) COPD (chronic obstructive pulmonary disease): Comment: COPD is moderately severe, secondary to smoking, Is relatively stable at this time, but he becomes symptomatic when doing any heavy physical work. He is prone to have recurrent acute exacerbation probably due to nonspecific tracheobronchitis. Code(s): J44.9 - Chronic obstructive pulmonary disease, unspecified Category: Medical Qualifiers: COPD type: chronic bronchitis Chronic bronchitis type: simple Qualified Code(s): J41.0 - Simple chronic bronchitis Plan: ADVISED TO USE SYMBICORT 160-4.52 PUFFS B.I.D. COMBIVENT RESPIMAT 1 INHALATION Q 6 HOURS WHILE AWAKE. TRY TO QUIT SMOKING. (3) Allergic rhinitis: Comment: (Allergic Rhinitis on top of COPD - gets increased nasal congestion when outdoors) NOT VERY ACTIVE AT THIS TIME. Code(s): J30.9 - Allergic rhinitis, unspecified Category: Medical Plan: May use OTC antihistaminic agent such as loratadine 10 mg once a day p.r.n.. (4) Nocturnal hypoxemia: Comment: As per sleep study, he does have borderline nocturnal hypoxemia with O2 sat between 89-90%. He does not have any O2 equipment at home Code(s): G47.34 - Idiopathic sleep related nonobstructive alveolar hypoventilation Category: Medical Plan: Plan is to do overnight oximetry recording once a gain at home and then start him on O2 supplementation. Plan PULMONARY CLEARANCE PATIENT IS AWAITING TO UNDERGO LAPAROSCOPIC CHOLECYSTECTOMY. HE IS A POOR SURGICAL RISK HOWEVER HIS OBSTRUCTIVE LUNG. DISEASE IS FAIRLY STABLE AT THIS TIME HE CAN SAFELY UNDERGO THE PROCEDURE. WOULD NEED TO BE WATCH CLOSELY FOR HYPOXEMIA AND WOULD NEED O2 SUPPLEMENTATION TO KEEP O2 SAT ABOVE 90%. MAY HAVE DUONEB UPDRAFTS Q 4-6 HOURS P.R.N. FOR ANY RESPIRATORY DISTRESS. Coding Level of Care Code Est Pt Level 4 (23767) Diagnoses Nicotine dependence, cigarettes, uncomplicated F17.210 Simple chronic bronchitis J41.0 COPD type: chronic bronchitis Chronic bronchitis type: simple Allergic rhinitis J30.9 Nocturnal hypoxemia G47.34
--- OUTSIDE RECORDS SUMMARY | 2025-06-15 15:39 | XMS_ITS | Clinical Summary ---
Author Organization [facility] Address [address] [place] [address] Care Team Providers Care Laundry Or Dry Cleaners Counter Clerk Name Role Phone Goldie Watkins MD [...] age to complete this topic Care Teams Laundry Or Dry Cleaners Counter Clerk Relationship Specialty Start Date End Date Goldie Watkins MD [address] [place] [address] , [address] [facility] D/B/A: [facility] CARLOS Melendrez [id number] PCP - General Internal Medicine 06/08/17
--- OUTSIDE RECORDS SUMMARY | 2025-06-15 15:39 | XMS_ITS | Patient Health Record ---
Author Organization Ashish Huertas III, MD Address [address] ROD[place]UEZ [address] [place] [phone] Care Team Providers Care Silo Filler Name Role Phone Ashish Huertas Primary Care [...] yet rev iewed by provider) Interpretation: Performing Lab:[facility], [address] [place] [phone] Notes/Report: Routine Culture Report - external Routine Culture 4+ Mixed skin wesley O:CANPAR Tereza parapsilosis Routine Culture Quant Org ID Routine Culture 2+ Ferritin (Not yet reviewed b y provider) Interpretation: Performing Lab:[facility], [address] [place] [phone] Notes/Report: Ferritin 68 20-250 ng/mL US arterial duplex BI w/ KAI Reviewed date:09/24/2024 07:13:25 AM Interpretation: Performing Lab: Notes/Report: [address] [address] Ultrasound Report Signed Patient: LetiSid chun MR#: [id number] : 1960 Acct:[id number] Age/Sex: 63 / M ADM Date: 08/22/24 Loc: . Attending Dr: Jhony Orr MD Ordering Physician: Jhony Orr MD Date of Service: 08/22/24 Procedure(s): US arterial duplex BI w/ KAI Accession Number(s): [id number] cc: Ashish Huertas MD; Jhony Orr MD [...] Sultana Beaver MD 09/23/2024 06:31 PM [facility] Dictated By: Twyla Beaver Signed By: <Electronically signed by Twyla Beaver in OV> 09/23/24 1831 DD/ 1133 TD/TT: 08/22/24 1210 Juvenile Detention Officer: [address] [address] Ultrasound Report Signed Patient: Marlo Landeros MR#: [id number] : 1960 Acct:[id number] Age/Sex: 63 / M ADM Date: 08/22/24 Loc: HO.US Attending Dr: Jhony Orr MD Ordering Physician: Jhony Orr MD Date of Service: 08/22/24 Procedure(s): US arterial duplex BI w/ KAI Accession Number(s): [id number] cc: Ashish Huertas MD; Jhony Orr MD [...] Sultana Beaver MD 09/23/2024 06:31 PM [facility] Dictated By: Twyla Beaver Signed By: <Electronically signed by Twyla Beaver in OV> 09/23/24 1831 DD/ 1133 TD/TT: 08/22/24 1210 Juvenile Detention Officer: US abdomen complete Reviewed date:02/16/2025 05:27:55 AM Interpretation: Performing Lab: Notes/Report: [place] [address] Ultrasound Report Signed Patient: Sid Landeros MR#: [id number] : 1960 Acct:[id number] Age/Sex: 64 / M ADM Date: 11/29/24 Loc: HO.US Attending Dr: Wen Diaz MD Ordering Physician: Wen Diaz MD Date of Service: 11/29/24 Procedure(s): US abdomen complete Accession Number(s): [id number] cc: Ashish Huertas MD; Wen Diaz MD [...] 11/30/24 0739 DD/ 1033 TD/TT: 11/29/24 1054 Juvenile Detention Officer: [place] [address] Ultrasound Report Signed Patient: Marlo Landeros MR#: [id number] : 1960 Acct:[id number] Age/Sex: 64 / M ADM Date: 11/29/24 Loc: HO.US Attending Dr: Wen Diaz MD Ordering Physician: Wen Diaz MD Date of Service: 11/29/24 Procedure(s): US abdomen complete Accession Number(s): [id number] cc: Ashish Huertas MD; Wen Diaz MD [...] 11/30/24 0739 DD/ 1033 TD/TT: 11/29/24 1054 Juvenile Detention Officer: ABEL Gram stain (Not yet reviewed by provider) Interpretation: Performing Lab:[facility], [address] [place] [phone] Notes/Report: Gram stain Gram stain results: Gram stain No polys Gram stain 1+ epithelial cells Gram stain 1+ Gram-positive cocci Gram stain 1+ Gram-positive rods Complete Blood Count Auto Di ff (Not yet reviewed by provider) Interpretation: Performing Lab:[facility], [address] [place] [phone] Notes/Report: White Blood Count 4.1 4.8-10.8 X10*3/uL [...] NRBC Abs Auto 0.000 0.0-0.012 X10*3/uL Comprehensive [place]. Panel Fa st (Not yet reviewed by provider) Interpretation: Performing Lab:[facility], [address] [place] [phone] Notes/Report: Sodium 132 135-145 mmol/L Potassium 4.3 [...] yet reviewe d by provider) Interpretation: Performing Lab:[facility], [address] [place] [phone] Notes/Report: Triglycerides 55 <150 mg/dL Desirable Triglyceride: [...] ot yet reviewed by provider) Interpretation: Performing Lab:[facility], [address] [place] [phone] Notes/Report: Prostate Specific Antigen 1.08 <0.05-4.0 ng/mL PSA methodology: Coyne Alinity i Chemiluminescent Microparticle Immunoassay (CMIA) US abdomen limited (Not yet reviewed by provider) Interpretation: Performing Lab: Notes/Report: [address] [address] Ultrasound Report Signed Patient: Sid Landeros MR#: [id number] : 1960 Acct:[id number] Age/Sex: 64 / M ADM Date: 06/05/25 Loc: HO.US Attending Dr: Victor Manuel Calderón MD Ordering Physician: Victor Manuel Calderón MD Date of Service: 06/05/25 Procedure(s): US abdomen limited Accession Number(s): [id number] cc: Ashish Huertas MD; Victor Manuel Calderón [...] 06/05/25 0845 DD/ 0802 TD/TT: 06/05/25 0813 Juvenile Detention Officer: [place] [address] Ultrasound Report Signed Patient: Marlo Landeros MR#: [id number] : 1960 Acct:[id number] Age/Sex: 64 / M ADM Date: 06/05/25 Loc: HO.US Attending Dr: Callie Meier MD Ordering Physician: Victor Manuel Calderón MD Date of Service: 06/05/25 Procedure(s): US abdomen limited Accession Number(s): [id number] cc: Ashish Huertas MD; Victor Manuel Calderón [...] in OV> 06/05/25844 DD/ 1 TD/TT: 06/05/25812 Juvenile Detention Officer: Complete Blood Count Auto Di ff (Not yet reviewed by provider) Interpretation: Performing Lab:[facility], [address] [place] [phone] Notes/Report: White Blood Count 5.6 4.8-10.8 X10*3/uL [...] (Not yet reviewed by provider) Interpretation: Performing Lab:[facility], [address] [place] [phone] Notes/Report: THER/HGB TNP 14.0-18.0 g/dL Lab Results on file. Performed at [facility] on 06/14/25: Hgb: 14.5 g/dl Hct: [...] Status W/U Status Risk Notes Problem Hyperlipidemia (60069851) Hyperlipidemia (E78.5) Active confirmed Comprehensive blood work with a fasting lipid profile is being done periodically. Problem 678063582 Overweight (E66.3) Active confirmed His body mass index is now 23.6 and this problem has resolved. Problem Hypertension (93200966) Hypertension (I10) Active confirmed His blood pressure has been 134/77. No change in his regimen was made. I encouraged him to pursue aggressive sodium restriction. He was given an appointment to come to the office and recheck his blood pressure.He will continue on the losartan given by cardiology. 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 He affirms that if he goes into direct sunlight. He will experience blisters and skin lesions. He is well versed in how to prevent this and has medications for his skin. Problem 568543477 Other hemochromatosis (E83.118) Active confirmed We will resume the phlebotomy at one-month intervals until he is iron deficient and than every 4 months. Problem 546756730 Acute bronchitis due to other specified organisms (J20.8) Active confirmed He is producing green phlegm and says he is wheezing. The inhaler is helping. He was given a Zithromax and prednisone with a follow-up visit. Problem Benign prostatic hyperplasia (899617299) BPH (benign prostatic hyperplasia) (N40.0) Active confirmed He arises from sleep about once a night to urinate. We have discussed lifestyle modifications he could make to reduce this. Problem 82570826 Tobacco dependence (F17.200) Active confirmed He continues to smoke a package of cigarettes every day. We discussed the health consequences of this. His COPD has been stable and inactive recently. I made him aware of the smoking cessation programs and the local hospitals and this community. Problem COPD - Chronic obstructive pulmonary disease (68813253) COPD (chronic obstructive pulmonary disease) (J44.9) Active [...] lung cancer, COPD, oxygen dependence, etc. Problem 421709454 Ear infection (H66.90) Active confirmed He has complete d a course of antibiotics for the skin inflammation on each year. A repeat culture grew only Tereza. The appearance is much improved. Problem 58880030 Viral syndrome (B34.9) Active confirmed I'm going to speak to him on a daily basis because of the risk of progression of respiratory disease. He has continued to smoke and has COPD. He will continue to use his inhalers as directed. If necessary he will be given oral prednisone and an antibiotic. Problem 74637838 Pilonidal cyst (L05.91) Active confirmed He had an excision and repair of this cyst years ago. It is healed and no longer bothers him. Problem 808767173 Peripheral arterial disease (I73.9) Active confirmed His claudicatio n is stable at 1 block. He recently saw the vascular surgeon. He recently underwent a revision of his left femoral-popliteal bypass graft. The wound is now healed. He experiences some claudication in his right leg and is able to walk one block without stopping to rest. Problem 730686492 Age-related incipient cataract of both eyes (H25.093) Active confirmed He is schedul ed for cataract extraction sequentially later this month. I have taken. A careful history and examined him thoroughly. There is no contraindication to surgery at this time. The benefit is great in the risk is small. He is given medical clearance for both procedures. Problem 879668168 Lumbar radiculopathy, right (M54.16) Active confirmed He continues to have pain that comes from his lower lumbar spine and right paravertebral muscles that radiates into his right buttock. X-rays have shown degenerative disease. The pain is aggravated with walking more than 10 feet and lifting more than 10 pounds. He has been referred to [facility] spine and sports rehabilitation medicine for physical therapy injections imaging and evaluation for surgery. Problem 55459903 Acute diffuse otitis externa of both ears (H60.313) Active confirmed The left ear wa s primarily involved. The otic canalWas uninvolved. The tympanic membrane was normal. A prescription for Bactrim was given to him. Problem 44973948 Staphylococcus infection (B95.8) Active confirmed This seems [...] Date Provider Diagnosis Ashish Huertas III, MD [address] [place] [address] [place] [phone] 08/02/2024 Ashish Huertas Infection of pelvis M86.9 ; Peripheral arterial disease I73.9 ; COPD (chronic obstructive pulmonary disease) J44.9 ; Lumbar radiculopathy, right M54.16 ; BPH (benign prostatic hyperplasia) N40.0 and Hypertension I10 Ashish Huertas III, MD [address] [place] [address] [place] [phone] 08/15/2024 Ashish Huertas Infection of pelvis M86.9 ; Hypertension I10 ; BPH (benign prostatic hyperplasia) N40.0 ; COPD (chronic obstructive pulmonary disease) J44.9 ; Peripheral arterial disease I73.9 and Lumbar radiculopathy, right M54.16 Ashish Huertas III, MD [address] [place] [address] [place] [phone] 10/28/2024 Ashish Huertas Hypertension I10 ; C OPD (chronic obstructive pulmonary disease) J44.9 ; BPH (benign prostatic hyperplasia) N40.0 ; Peripheral arterial disease I73.9 ; Tobacco dependence F17.200 ; Porphyria cutanea tarda E80.1 ; Lumbar radiculopathy, right M54.16 and Overweight E66.3 Ashish Huertas III, MD [address] [place] [address] [place] [phone] 11/15/2024 Ashish Huertas Acute bronchitis due to other specified organisms J20.8 ; COPD (chronic obstructive pulmonary disease) J44.9 ; Tobacco dependence F17.200 ; Lumbar radiculopathy, right M54.16 ; Porphyria cutanea tarda E80.1 ; Hyperlipidemia E78.5 ; Hypertension I10 and Peripheral arterial disease I73.9 Ashish Huertas III, MD [address] [place] [address] [place] [phone] 01/10/2025 Ashish Huertas Acute diffuse otitis externa of both ears H60.313 ; Lumbar radiculopathy, right M54.16 ; Hypertension I10 ; BPH (benign prostatic hyperplasia) N40.0 ; Peripheral arterial disease I73.9 ; Tobacco dependence F17.200 ; Porphyria cutanea tarda E80.1 and COPD (chronic obstructive pulmonary disease) J44.9 Ashish Huertas III, MD [address] [place] [address] [place] [phone] 01/18/2025 Ashish Huertas Acute bronchitis due to other specified organisms J20.8 ; Hypertension I10 ; BPH (benign prostatic hyperplasia) N40.0 ; COPD (chronic obstructive pulmonary disease) J44.9 ; Peripheral arterial disease I73.9 and Lumbar radiculopathy, right M54.16 Ashish Huertas III, MD [address] [place] [address] [place] [phone] 01/23/2025 Ashish Huertas Viral syndrome B34.9 ; COPD (chronic obstructive pulmonary disease) J44.9 ; Hypertension I10 ; BPH (benign prostatic hyperplasia) N40.0 ; Peripheral arterial disease I73.9 ; Tobacco dependence F17.200 ; Porphyria cutanea tarda E80.1 and Lumbar radiculopathy, right M54.16 Ashish Huertas III, MD [address] [place] [address] [place] [phone] 02/14/2025 Ashish Huertas Staphylococcus infec tion B95.8 ; Hypertension I10 ; BPH (benign prostatic hyperplasia) N40.0 ; COPD (chronic obstructive pulmonary disease) J44.9 ; Peripheral arterial disease I73.9 ; Lumbar radiculopathy, right M54.16 ; Tobacco dependence F17.200 and Porphyria cutanea tarda E80.1 Ashish Huertas III, MD [address] [place] [address] [place] [phone] 02/28/2025 Ashish Huertas BPH (benign prostati c hyperplasia) N40.0 ; Age-related incipient cataract of both eyes H25.093 ; Overweight E66.3 ; Hyperlipidemia E78.5 ; Ear infection H66.90 and COPD (chronic obstructive pulmonary disease) J44.9 Ashish Huertas III, MD [address] [place] [address] [place] [phone] 06/07/2025 Ashish Huertas Tobacco dependence F17.200 ; Other hemochromatosis E83.118 ; COPD (chronic obstructive pulmonary disease) J44.9 ; Hypertension I10 ; BPH (benign prostatic hyperplasia) N40.0 and Pilonidal cyst L05.91 Ashish Huertas III, MD [address] [place] [address] [place] [phone] 07/01/2024 Ashish Huertas III, MD [address] [place] [address] [place] [phone] 10/04/2024 Ashish Huertas Infection of pelvis M86.9 Ashish Huertas III, MD [address] [place] [address] [place] [phone] 11/21/2024 Ashish Huertas III, MD [address] [place] [address] [place] [phone] 11/21/2024 Ashish Huertas III, MD [address] [place] [address] [place] [phone] 12/19/2024 Ashish Huertas III, MD [address] [place] [address] [place] [phone] 01/24/2025 Ashish Huertas III, MD [address] [place] [address] [place] [phone] 04/07/2025 Ashish Huertas Assessments Encounter Date Diagnosis [...] 10 pounds. He has been referred to [facility] spine and sports rehabilitation medicine for [...] 10 pounds. He has been referred to [facility] spine [facility] sports rehabilitation [facility] for physical therapy injections imaging and evaluation [...] 10 pounds. He has been referred to [facility] in [facility] spine and sports rehabilitation [facility] for physical therapy injections imaging and evaluation [...] diagnosis of porphyria was made by a glove pairer at [facility]. He affirms that if [...] 10 pounds. He has been referred to [facility] spine and sports rehabilitation medicine for physical therapy injections imaging and evaluation for surgery. 10/28/2024 Porphyria cutanea tarda (ICD-10 - E80.1) The diagnosis of porphyria was made by a glove pairer at [facility]. He affirms that if [...] 10 pounds. He has been referred to [facility] in [facility] spine and sports rehabilitation [facility] for physical therapy injections imaging and evaluation [...] 10 pounds. He has been referred to [facility] in [facility] spine and sports rehabilitation [facility] for physical therapy injections imaging and evaluation [...] 10 pounds. He has been referred to [facility] spine and sports rehabilitation medicine for [...] diagnosis of porphyria was made by a glove pairer at [facility]. He affirms that if he goes into direct sunlight. He will experience blisters and skin lesions. He is well versed in how to prevent this and has medications for his skin. 01/23/2025 Porphyria cutanea tarda (ICD-10 - E80.1) The diagnosis of porphyria was made by a glove pairer at [facility]. He affirms that if [...] 10 pounds. He has been referred to [facility] spine and sports rehabilitation medicine for physical therapy injections imaging and evaluation for surgery. 02/14/2025 Porphyria cutanea tarda (ICD-10 - E80.1) The diagnosis of porphyria was made by a glove pairer at [facility]. He affirms that if [...] Diff Complete Blood Count Auto Diff Comprehensive [place]. Panel Fast Ferritin 06/07/2025 Lipid Panel 04/06/2025 Lipid Panel 09/23/2023 Lipid Panel 10/28/2024 Lipid Panel 06/07/2025 Lipid Panel 02/28/2025 Lipid Panel 05/23/2024 Prostate Specific Antigen 04/06/2025 Gram stain 02/14/2025 US abdomen limited 06/05/2025 XR thoracic spine 3V 11/27/2023 Routine Culture 02/14/2025 Routine Culture 02/09/2024 Routine Culture 01/10/2025 Therapeutic Phlebotomy 06/14/2025 Next Appt Details Provider Name:Asihsh Huertas, 09/06/2025 10:30:00 AM, [address] [place] [address] [address]ENN[address] SEGAL, [place], [phone], Provider Name:Ashish Escobedorne, 10/31/2025 02:00:00 PM, [address] [place] [address] JENNIFER SEGAL, [place], [phone], Insurance Providers Payer Name Payer Address Payer Phone Subscriber Number Group Number Insured Name Patient Relationship to Insured Coverage Start Date Coverage End Date [facility] [address] [place], [place] [phone] [id number] Sid Landeros Self - patient is the insured [address] [place] [address] [phone] [id number] Sid Landeros Self - patient is the insured Medical (General) History Medical History History ICD Code COPD (chronic obstructive pulmonary dise ase) J44.9 Hypertension I10 Erectile dysfunction Peripheral vascular disease Environmental allergies History of repaired pilonidal cyst Excised lipoma, left triceps, age 8 Porphyria cutanea [place], Dr. Brady, [facility] Tobacco dependence Covid19 infection 2021 Lumbar [...] Date(Month/Year) No history Arterial Bipass 05/2022 Colonoscopy, [facility], Dr. Ramos Fracture of 2 fingers Repair of pilonidal cyst Excision of lipoma, left triceps, age 8 Esophagogastricduodoscopy [place]opl[place] [place] History Reason Date(Month/Year)
== END 2025-06-15 14:20 | disposition home or self-care (01) ==
LOC: HO.HPS 13:42
PROVIDERS: PCP Internal Medicine Medical Oncology; Visit Provider Internal Medicine
DX: F17.210 Nicotine dependence, cigarettes, uncomplicated (principal); J41.0 Simple chronic bronchitis; J30.9 Allergic rhinitis, unspecified; G47.34 Idiopathic sleep related nonobstructive alveolar hypoventilation
CPT/HCPCS: 99214

== ENCOUNTER 2025-06-20 14:39 | Outpatient (AMB) | payer OTHER, BC, SELFPAY ==
--- OUTSIDE RECORDS SUMMARY | 2025-02-14 10:00 | XMS_ITS ---
Author Organization Ashish Huertas III, MD Address [address] [place] [address] Care Team Providers Care Mantel Craftsman Name Role Phone Dr. Ashish Huertas III Primary Care Provider Allergies Allergen (clinical drug ingredient) Drug/Non Drug Allergy documented on EMR Reaction Allergy Type Onset Date Status doxycycline Doxycycline Unknown Drug Allergy Act henrry Results Component Value Reference Range Notes Routine Culture Reviewed date:06/19/2025 05:40:55 AM Interpretation: Performing Lab:[facility], [address] [place] [phone] Notes/Report: Routine Culture Report - external Routine [...] Problem Status W/U Status Risk Notes Problem [id number] Staphylococcus infection (B95.8) Active confirmed This seems [...] Provider Diagnosis Ashish Huertas III, MD [address] [place] [address] [place] [address] 02/14/2025 Ashish Huertas Staphylococcus infec tion B95.8 [...] diagnosis of porphyria was made by a knitted goods shaper at [facility]. He affirms that if he [...] Provider Name:Ashish Huertas , 09/06/2025 10:30:00 AM, [address] [place] [address] [address], [place], [phone], Provider Name:Ashish Huertas , 10/31/2025 02:00:00 PM, [address] [place] [address] [address], [place], [phone], Progress Notes * Sid LANDEROS MDOB: 2 (64 yo M)Acc No.[id number]:02/14/2025 Progress Notes Patient: Logan AUGUSTIN Sid Mili Provider: Frantz Huertas MD :1960 A ge:64 Y S ex:Male Date:02/14/2025 Address:[address] [place] [address] NINI [id number] Subjective: * Chief Complaints: * b ilateral [...] Surgical History: F emoral -popliteal arterial bypass @[facility] [place] 05/2022Esophagogastricduodoscopy Excision of lipoma, left triceps, age 8 Repair of pilonidal cyst Fracture of 2 fingers Colonoscopy, [facility], Dr. Ramos Arterial Bipass 05/2022No history [...] diagnosis of porphyria was made by a knitted goods shaper at [facility]. He affirms that if he [...] 02/14/2025 Generated for Vanessa rodriguez/Namita/eTkatitting on: 0 06/20/2025 05:50 PM EDT History and Physical Notes * [...]
--- OUTSIDE RECORDS SUMMARY | 2025-02-28 11:30 | XMS_ITS ---
Author Organization Ashish Huertas III, MD Address [address] [place] [address] Care Team Providers Care Plant Operator Name Role Phone Dr. Ashish Huertas III Primary Care Provider [phone] Allergies Allergen (clinical drug ingredient) Drug/Non Drug Allergy documented on EMR Reaction Allergy Type Onset Date Status doxycycline Doxycycline Unknown Drug Allergy Act henrry REASON FOR VISIT Medical clearance for surgery, Bilateral cataracts, Left eye cataract surgery March 09, 2025, Right eye cataract surgery March 23, 2025, COPD, Hypertension, Tobacco dependence, Peripheral arterial disease, Lumbar radiculopathy, Hypertension Medications Medication SIG (Take, Route, Frequency, Duration) Notes Start Date End Date Status Sildenafil Citrate 100 MG 1 tablet as ne eded Orally Once a day 10/28/2024 Active Losartan Potassium 25 MG 1 tablet Orally Once a day 01/10/2025 Active Symbicort 160-4.5 MCG/ACT 2 puffs Inhala tion Twice a day Active Clopidogrel Bisulfate 75 MG 1 tablet Ora lly Once a day 08/02/2024 Active amLODIPine Besylate 10 MG 1 tablet Orall y Once a day Active Sulfamethoxazole-Trimethopr im 800-160 MG 1 tablet Orally twice a day 02/14/2025 Active Combivent Respimat 20-100 MCG/ACT 1 puff as needed Inhalation every 6 hrs Active Ibuprofen 800 MG Oral Act henrry Pantoprazole Sodium 40 MG one tablet miguel angel ly Orally Once a day 10/04/2024 Active Rosuvastatin Calcium 20 MG 1 tablet [...] Problem Status W/U Status Risk Notes Problem [id number] Ear infection (H66.90) Active confirmed He has complete d a course of antibiotics for the skin inflammation on each year. A repeat culture grew only Tereza. The appearance is much improved. Problem [id number] Age-related incipient cataract of both eyes (H25.093) Active confirmed He is scheduled for cataract extraction sequentially later this month. I have taken. A careful history and examined him thoroughly. There is no contraindication to surgery at this time. The benefit is great in the risk is small. He is given medical clearance for both procedures. Vital Signs Temperature 98.4 degrees Fahrenheit 02/29/20 25 Blood pressure systolic 118 mm Hg 02/29/20 25 Blood pressure diastolic 55 mm Hg 025 Heart Rate 84 /min 02/28/2025 Height 70 in 02/28/2025 Weight 165 lbs 02/28/2025 BMI 23.67 kg/m2 02/28/2025 Oximetry 98 % 02/28/2025 Encounters Encounter Location Date Provider Diagnosis Ashish Huertas III, MD [address] [place] [address] [place] [address] 02/28/2025 Ashish Huertas BPH (benign prostati c hyperplasia) N40.0 ; Age-related incipient cataract of both eyes H25.093 ; Overweight E66.3 ; Hyperlipidemia E78.5 ; Ear infection H66.90 and COPD (chronic obstructive pulmonary disease) J44.9 Assessments Encounter Date Diagnosis (ICD Code) Assessment Notes T reatment Notes Treatment Clinical Notes 02/28/2025 BPH (benign prostatic hyperplasia) (ICD-10 - N40.0) He arises from sleep about once a night to urinate. We have discussed lifestyle modifications he could make to reduce this. 02/28/2025 Age-related incipient cataract of both eyes (ICD-10 - H25.093) He is scheduled for cataract extraction sequentially later this month. I have taken. A careful history and examined him thoroughly. There is no contraindication to surgery at this time. The benefit is great in the risk is small. He is given medical clearance for both procedures. 02/28/2025 Overweight (ICD-10 - E66.3) His body mass index is now 23.6 and this problem has resolved. 02/28/2025 Hyperlipidemia (ICD-10 - E78.5) Comprehensive blood work with a fasting lipid profile is being done periodically. 02/28/2025 Ear infection (ICD-10 - H66.90) He has completed a course of antibiotics for the skin inflammation on each year. A repeat culture grew only Tereza. The appearance is much improved. 02/28/2025 COPD (chronic obstructive pulmonary disease) (ICD-10 - [...] ne eded Orally Once a day 10/28/2024 Losartan Potassium 25 MG 1 tablet Orally Once a day 2024 Symbicort 160-4.5 MCG/ACT 2 puffs Inhala tion Twice a day Clopidogrel Bisulfate 75 MG 1 tablet Orally Once a day 01/2024 amLODIPine Besylate 10 MG 1 tablet Orally Once a day Sulfamethoxazole-Trimethopri m 800-160 MG 1 tablet Orally twice a day 02/14/2025 Combivent Respimat 20-100 MCG/ACT 1 puff as needed Inhalation every 6 hrs Ibuprofen 800 MG Oral Pantoprazole Sodium 40 MG one tablet miguel angel ly Orally Once a day 10/04/2024 Rosuvastatin Calcium 20 MG 1 tablet Orally Once a day Pending Test Test Name Order Date PROFILE, FASTING (COMPREHENSIVE METABOLI C) 02/28/2025 PSA, TOTAL 02/28/2025 CBC w DIFF 02/28/2025 Lipid Panel 02/28/2025 Next Appt Details Follow Up: 3 Months, Reason: OV Provider Name:Ashish Huertas , 09/06/2025 10:30:00 AM, [address] [facility] [address], [place], [phone], Provider Name:Ashish Huertas , 10/31/2025 02:00:00 PM, [address] [place] [address] [address], [place], [address], Progress Notes * Sid LANDEROS MDOB: 2 (64 yo M)Acc No.[id number]:02/28/2025 Patient: Sid COBOS Provider: Frantz Huertas MD :1960 A ge:64 Y S ex:Male Date:02/28/2025 Address:[address] [place] [address] KEVIN, [place]-[id number] Subjective: * Chief Complaints: * M edical clearance for surgeryBilateral cataractsLeft eye cataract surgery March 09, 2025Right eye cataract surgery March 23OPDHypertensionTobacco dependencePeripheral arterial diseaseLumbar radiculopathyHypertension * HPI: C OVID-19 Screening: Questions H ave you had any new [...] with exertion d enies. D yspnea on exertion?with prolonged activity. S hortness of breath w ith exertion. [...] Surgical History: F emoral -popliteal arterial bypass [place]/2022Esophagogastricduodoscopy Excision of lipoma, left triceps, age 8 Repair of pilonidal cyst Fracture of 2 fingers Colonoscopy, , Dr. Ramos Arterial Bipass 05/2022No history * Hospitalization/Major Diagno stic Procedure: N o Hospitalization History. * Family History: F ather: 72 yrs, [...] reduced his smoking significantly. * Medications: T akingSulfamethoxazole-Trimethoprim 800-160 MG Tablet 1 tablet Orally twice a day , stop date 04/11/2025Pantoprazole Sodium 40 MG Tablet Delayed Release one [...] List reviewed and reconciled with the patientTaking Sulfamethoxazole-Trimethoprim 800-160 MG Tablet 1 tablet Orally twice a day , stop date 04/11/2025Taking Pantoprazole Sodium 40 MG Tablet Delayed Release [...] Objective: * Vitals: H t: 70, Wt: 165, BMI:23.67, BP: 118/55, HR: 84, Temp: 98.4, Oxygen sat %: 98, Ht- cm: 177.8, Wt-k.84. * Examination: G eneral Examination: GENERAL APPEARANCE: p leasant, well nourished, well developed, in no acute distress, calm and relaxed, man. HEAD: a traumatic, normocephalic. EYES: e ros, perrla, anicteric, conjugate. EARS: S light residual inflammation of the pinnae. NOSE: s eptum intact. ORAL CAVITY: n ormal, unremarkable. NECK/THYROID: n o jugular venous distention, no carotid bruit, thyroid normal. LYMPH NODES: n o enlarged lymph nodes,spleen normal. SKIN: n o suspicious lesions, anicteric. HEART: n o clicks, gallops, murmurs, or rubs, regular rhythm, S1, S2 normal, no s3, or vascular bruits. LUNGS: c lear to auscultation . BREASTS: no masses palpable bilaterally. ABDOMEN: b [...] lert, oriented. Assessment: * Assessment: 1. A ge-related incipient cataract of both eyes - H25.093 (Primary) N otes :He is scheduled for cataract extraction sequentially later this month. I have taken. A careful history and examined him thoroughly. There is no contraindication to surgery at this time. The benefit is great in the risk is small. He is given medical clearance for both procedures. 2 . B PH (benign prostatic hyperplasia) - N40.0 N otes :He arises from sleep about once a night to urinate. We have discussed lifestyle modifications he could make to reduce this. 3 . O verweight - E66.3 N otes :His body mass index is now 23.6 and this problem has resolved. 4 . H yperlipidemia - E78.5 N otes :Comprehensive blood work with a fasting lipid profile is being done periodically. 5 . E ar infection - H66.90 N otes :He has completed a course of antibiotics for the skin inflammation on each year. A repeat culture grew only Tereza. The appearance is much improved. 6 . C OPD (chronic obstructive pulmonary disease) [...] dependence, etc. Plan: * Treatment: 2. O verweight L AB: PROFILE, FASTING (COMPREHENSIVE METABOLIC) L AB: PSA, TOTAL L AB: CBC w DIFF L AB: Lipid Panel 3. H yperlipidemia L AB: PROFILE, FASTING (COMPREHENSIVE METABOLIC) L AB: PSA, TOTAL L AB: CBC w DIFF L AB: Lipid Panel 4. O thers Continue Pantoprazole Sodium Tablet Delayed Release, 40 MG, one tablet daily, Orally, Once a day;?Continue Rosuvastatin Calcium Tablet, 20 MG, 1 tablet, Orally, Once a day; C ontinue Combivent Respimat Aerosol Solution, 20-100 MCG/ACT, 1 puff as needed, Inhalation, every 6 hrs; C ontinue Ibuprofen Tablet, 800 MG, Oral; C ontinue Symbicort Aerosol, 160-4.5 MCG/ACT, 2 puffs, Inhalation, Twice a day; C ontinue Clopidogrel Bisulfate Tablet, 75 MG, 1 tablet, Orally, Once a day;?Continue Sildenafil Citrate Tablet, 100 MG, 1 tablet as needed, Orally, Once a day; C ontinue Losartan Potassium Tablet, 25 MG, 1 tablet, Orally, Once a day; C ontinue amLODIPine Besylate Tablet, 10 MG, 1 tablet, Orally, Once a day; C ontinue Sulfamethoxazole-Trimethoprim Tablet, 800-160 MG, 1 tablet, Orally, twice a day. * Procedure Codes: 9 4760 MEASURE BLOOD OXYGEN LEVEL * Preventive Medicine: Counseling: S moking/Tobacco Use Patient counseled on the dangers of tobacco use and urged to quit. 0 02/28/2025 Patient Lifestyle Goals P atient wants to quit Treatment Goals S et a quit date, Cut down by 1 cigarette a week Barriers S ocial smoker, Stress Self-Management Plan M kelly a plan to cut down number of cigarettes over time and set a date to work towards quitting COPD Care Plan: P atient Lifestyle Goals R elieve symptoms and improve quality of life, Reduce number of ED and hospitalizations, Be able to be more active with friends and family. T reatment Goals E at a nutritious diet and increase water consumption to 6-8 glasses a day, Exercise to help whole body, including lungs, Quit Smoking.? B arriers n o barriers. S elf-Managment Goals M kelly a plan for quitting smoking. * Follow Up: 3 Months (Reason: OV) * Images: * Sign off status: Completed true * Provider: Frantz Huertas MD Date: 0 02/28/2025 Generated for Vanessa rodriguez/Namita/Braydensmitting on: 0 06/20/2025 05:50 PM EDT History [...] EYES: eomi, perrla, anicte jagruti, conjugate EARS: Slight residual infl ammation of the pinnae NOSE: septum intact NECK/THYROID: no jugular venous [...]
--- OUTSIDE RECORDS SUMMARY | 2025-04-07 05:42 | XMS_ITS ---
Author Organization Ashish Huertas III, MD Address [address] [place] [address] Care Team Providers Care Building Pressure Washer Name Role Phone Dr. Ashish Huertas III Primary Care Provider [phone] REASON FOR VISIT Needs call back from Social History Sex Assigned At : Social History Observation Description Sex Assigned At Male Encounters Encounter Location Date Provider Diagnosis Ashish Huertas III, MD [address] [place] [address] [place] [address] 04/07/2025 Ashish uHertas Plan Of Treatment Next Appt Details Provider Name:Ashish Huertas , 09/06/2025 10:30:00 AM, [address] [place] [address] [place], [address], Provider Name:Ashish Huertas , 10/31/2025 02:00:00 PM, [address] [place] [address] [place], [address], Progress Notes * Sid LANDEROS MDOB: 2 (64 yo M)Acc No.[id number]:04/07/2025 Patient: Logan MALLORYSUPRIYASdi :1960 A ge:64 Y S ex:Male Address:[address] [place], [address] * true * Date: Generated for Printi ng/Faxing/eTransmitting on: 0 06/20/2025 05:50 PM EDT
--- OUTSIDE RECORDS SUMMARY | 2025-06-02 05:00 | XMS_ITS ---
Author Organization Ashish Huertas III, MD Address [address] [place] [address] Care Team Providers Care Diving Instructor Name Role Phone Dr. Ashish Huertas III Primary Care Provider [phone] Allergies Allergen (clinical drug ingredient) Drug/Non Drug [...] Date Provider Diagnosis Ashish Huertas III, MD [address] [place] [address] [place] [address] 06/02/2025 Ashish Huertas Plan Of Treatment Medication [...] Provider Name:Ashish Huertas , 09/06/2025 10:30:00 AM, [address] [place] [address] [address], [place], [address], Provider Name:Ashish Huertas , 10/31/2025 02:00:00 PM, [address] [place] [address] [place], [address], Progress Notes * Sid LANDEROS MDOB: 2 (64 yo M)Acc No.[id number]:06/02/2025 Progress Notes Patient: Sid COBOS Provider: Frantz Huertas MD :1960 A ge:64 Y S ex:Male Date:06/02/2025 Address:[address] [place] [address], [id number] Subjective: * Chief Complaints: * 1 . [...] age 8, Porphyria cutanea tarda, Dr. Brady, [facility], Tobacco dependence, Covid19 infection 2021, Lumbar [...] Surgical History: [place] [place], Esophagogastricduodoscopy , Excision of lipoma, left triceps, age 8 , Repair of pilonidal cyst , Fracture of 2 fingers , Colonoscopy, [facility], Dr. Ramos , Arterial Bipass 05/2022, No [...] Pending * Provider: Frantz Huertas MD Date: 06/02/2025 Generated for Elmeri michael/Namita/Reyitting on: 06/20/2025 05:50 PM EDT History and Physical [...]
--- OUTSIDE RECORDS SUMMARY | 2025-06-07 11:00 | XMS_ITS ---
Author Organization Ashish Huertas III, MD Address [address] [place] [address] Care Team Providers Care Herbicide Service Sales Representative Name Role Phone Dr. Ashish Huertas III Primary Care Provider Allergies Allergen (clinical drug ingredient) Drug/Non Drug Allergy documented on EMR Reaction Allergy Type Onset Date Status doxycycline Doxycycline Unknown Drug Allergy Act henrry Results Component Value Reference Range Notes Ferritin Reviewed date:06/19/2025 05:40:55 AM Interpretation: Performing Lab:[facility], [address] [place] [phone] Notes/Report: Ferritin 68 20-250 ng/mL REASON FOR VISIT Otitis, COPD, Hypertension, Porphyria, Tobacco dependence, Lumbar radiculopathy Medications Medication SIG [...] tablet Orally twice a day 02/14/2025 Active Symbicort 160-4.5 MCG/ACT 2 puffs Inhala [...] Problem Status W/U Status Risk Notes Problem [id number] Other hemochromatosis (E83.118) Active confirmed We will resume the phlebotomy at one-month intervals until he is iron deficient and than every 4 months. Vital Signs Temperature 98.2 degrees Fahrenheit 06/07/20 25 Blood pressure systolic 134 mm Hg 06/07/20 25 Blood pressure diastolic 68 mm Hg 025 Heart Rate 96 /min 06/07/2025 Height 70 in 06/07/2025 Weight 153 lbs 06/07/2025 BMI 21.95 kg/m2 06/07/2025 Encounters Encounter Location Date Provider Diagnosis Ashish Huertas III, MD [address] [place] [address] [place] [address] 06/07/2025 Ashsih Huertas Tobacco dependence F17.200 ; Other hemochromatosis E83.118 ; COPD (chronic obstructive pulmonary disease) J44.9 ; Hypertension I10 ; BPH (benign prostatic hyperplasia) N40.0 and Pilonidal cyst L05.91 Assessments Encounter Date Diagnosis (ICD Code) Assessment Notes Treat ment Notes Treatment Clinical Notes 06/07/2025 Tobacco dependence (ICD-10 - F17.200) He continues to smoke a package of cigarettes every day. We discussed the health consequences of this. His COPD has been stable and inactive recently. I made him aware of the smoking cessation programs and the local hospitals and this community. 06/07/2025 Other hemochromatosi s (ICD-10 - E83.118) We will resume the phlebotomy at one-month intervals until he is iron deficient and than every 4 months. 06/07/2025 COPD (chronic obstructive pulmonary disease) (ICD-10 - [...] include lung cancer, COPD, oxygen dependence, etc. 06/07/2025 Hypertension (ICD-10 - I10) His blood pressure has been 134/77. No change in his regimen was made. I encouraged him to pursue aggressive sodium restriction. He was given an appointment to come to the office and recheck his blood pressure.He will continue on the losartan given by cardiology. 06/07/2025 BPH (benign prostati c hyperplasia) (ICD-10 - N40.0) He arises from sleep about once a night to urinate. We have discussed lifestyle modifications he could make to reduce this. 06/07/2025 Pilonidal cyst (ICD-10 - L05.91) He had an excision and repair of this cyst years ago. It is healed and no longer bothers him. Plan Of Treatment Medication Medication Name Sig [...] 1 tablet Orally twice a day 02/14/2025 Symbicort 160-4.5 MCG/ACT 2 puffs Inhala tion Twice a day Combivent Respimat 20-100 MCG/ACT 1 puff as needed Inhalation every 6 hrs Ibuprofen 800 MG Oral Pantoprazole Sodium 40 MG one tablet miguel angel ly Orally Once a day 10/04/2024 Rosuvastatin Calcium 20 MG 1 tablet Orally Once a day Pending Test Test Name Order Date PROFILE, FASTING (COMPREHENSIVE METABOLI C) 06/07/2025 GGT 06/07/2025 CBC w DIFF 06/07/2025 Lipid Panel 06/07/2025 Next Appt Details Follow Up: 3 Months, Reason: OV Provider Name:Ashish Huertas , 09/06/2025 10:30:00 AM, [address] [place] [address] , [address], [place], [address], Provider Name:Ashish Escobedorne , 10/31/2025 02:00:00 PM, [address] [place] [address] [address], [place], [address], Progress Notes * Sid LANDEROS MDOB: 2 (64 yo M)Acc No.[id number]:06/07/2025 Progress Notes Patient: Sid COBOS Provider: Frantz Huertas MD :1960 A ge:64 Y S ex:Male Date:06/07/2025 Address:[address] [place] [address], [id number] Subjective: * Chief Complaints: * O titisCOPDHypertensionPorphyriaTobacco dependenceLumbar radiculopathy * HPI: C OVID-19 Screening: He returns for medical management. The ear infections have completely resolved. His tympanic membranes appear normal. Blood work showed his ferritin to be elevated from before at 90. He wants to resume periodic phlebotomy for his porphyria and hemochromatosis. This will be arranged with the blood bank. His liver function tests were elevated. A careful history and physical and review his labs indicates this is probably steatosis. Questions H ave you had any new [...] exertion d enies. D yspnea on exertion?with moderate activity. S hortness of breath w ith [...] Surgical History: F emoral -popliteal arterial bypass @[facility] [place] 05/2022Esophagogastricduodoscopy Excision of lipoma, left triceps, age 8 Repair of pilonidal cyst Fracture of 2 fingers Colonoscopy, [facility], Dr. Ramos Arterial Bipass 05/2022No history * Hospitalization/Major Diagno stic Procedure: D enies Past Hospitalization * Family History: F ather: 72 yrs, [...] Tablet 1 tablet Orally Once a day Sulfamethoxazole-Trimethoprim 800-160 MG Tablet 1 tablet Orally twice a day Medication List reviewed and reconciled [...] 1 tablet Orally Once a day Taking Sulfamethoxazole-Trimethoprim 800-160 MG Tablet 1 tablet Orally twice a day Medication List reviewed and reconciled with the patient * Allergies: D oxycyclineno[Allergies Verified] Objective: * Vitals: H t: 70, Wt: 153, BMI:21.95, BP: 134/68, HR: 96, Temp: 98.2, Ht-cm: 177.8, Wt-k.4. * Examination: G eneral Examination: GENERAL APPEARANCE: p leasant, well nourished, well developed, in no acute distress, calm and relaxed: man. HEAD: a traumatic, normocephalic. EYES: e ros, perrla, anicteric, conjugate. EARS: B oth ears are returned to normal without signs of infection. NOSE: s eptum intact. ORAL CAVITY: n [...] a lert, oriented. Assessment: * Assessment: 1. O ther hemochromatosis - E83.118 (Primary) N otes :We will resume the phlebotomy at one-month intervals until he is iron deficient and than every 4 months. 2 . T obacco dependence - F17.200 N otes :He continues to smoke a package of cigarettes every day. We discussed the health consequences of this. His COPD has been stable and inactive recently. I made him aware of the smoking cessation programs and the local hospitals and this community. 3 . C OPD (chronic obstructive pulmonary disease) [...] include lung cancer, COPD, oxygen dependence, etc. 4 . H ypertension - I10 N otes :His blood pressure has been 134/77. No change in his regimen was made. I encouraged him to pursue aggressive sodium restriction. He was given an appointment to come to the office and recheck his blood pressure.He will continue on the losartan given by cardiology. 5 . B PH (benign prostatic hyperplasia) - N40.0 N otes :He arises from sleep about once a night to urinate. We have discussed lifestyle modifications he could make to reduce this. 6 . P ilonidal cyst - L05.91 N otes :He had an excision and repair of this cyst years ago. It is healed and no longer bothers him. Plan: * Treatment: 2. O thers Continue [...] Orally, twice a day. * Procedure Codes: * Follow Up: 3 Months (Reason: OV) * Images: * Sign off status: Completed true * Provider: Frantz Huertas MD Date: 06/07/2025 Generated for Vanessa rodriguez/Namita/Reyitting on: 06/20/2025 05:50 PM EDT History and Physical Notes * HPI (History of Present Illness) Category Sub-Category Detail Notes COVID-19 Screening Questions Have you had any new onset fever, chills, cough, congestion, sore throat, shortness of breath, muscle aches?: No Examination Category Sub-Category Detail Notes General Examination GENERAL APPEARANCE: pleasant , well nourished, well developed, in no acute distress, calm and relaxed: man HEAD: atraumatic, normocep halic EYES: eomi, perrla, anicte jagruti, conjugate EARS: Both ears are return ed to normal without signs of infection NOSE: septum intact NECK/THYROID: no jugular venous [...]
--- NOTE | 2025-06-20 14:43 | A.OFFVIS_ITS ---
Vital Signs 06/20/25 14:46 Height 5 ft 10 in Weight 150 lb 12.739 oz BMI 21.6 BP 100/62 Blood Pressure Location Lt brachial Position Sitting Pulse 96 Pulse Source Monitor Intake Visit Reasons: cardiac clearance,lap [employer] Job Titles Required: No Accompanied by: Self / Same As Patient Allergies doxycycline Allergy (Verified 06/15/25 14:22) Hives nabumetone Adverse Reaction (Unknown, Verified 06/15/25 14:22) green stools Medication List - Last Reconciled 06/20/25 by Carlos A Fletcher MD amlodipine 10 mg PO DAILY 90 days aspirin (Adult Aspirin Regimen) 81 mg PO DAILY bisacodyl 20 mg (4 x 5 mg) PO ONCE 1 day budesonide-formoterol 160-4.5 mcg/actuation (Symbicort) 2 inhalations PO BID clopidogrel 75 mg PO DAILY codeine-guaifenesin 10-100 mg/5 mL 10 mL PO Q4-6H PRN 1 week ibuprofen 800 mg PO Q8H PRN 90 days ipratropium-albuterol 20-100 mcg/actuation (Combivent Respimat) 1 puff inhalation Q6H PRN 90 days losartan 25 mg PO DAILY nicotine 10 mg inhalation 3XD 30 days nicotine 1 spray intranasal TID 30 days pantoprazole 40 mg PO DAILY polyethylene glycol 3350 (Miralax) 238 grams PO ONCE rosuvastatin 20 mg PO DAILY sildenafil 100 mg PO DAILY PRN HPI Comments Details: Sid returns for follow-up. He also needs clearance for laparoscopic cholecystectomy. To recall, he has a history of peripheral vascular disease and has had lower extremity vascular surgeries. Based on vascular history, suspected have some coronary disease. Otherwise, also has hypertension, dyslipidemia, smoking. In spite of numerous discussions, he still states he is smoking. Otherwise, he denies any clear-cut symptoms like angina or shortness of breath. It seems he is doing fine for the most part. He can walk for 30 minutes usually without any issues. He can climb as much as 2 stairs with no symptoms like angina. [facility] Medical History Nocturnal hypoxemia Snoring Excessive daytime sleepiness Bronchitis Abnormal LFTs ETOH abuse Hereditary hemochromatosis Atherosclerotic cardiovascular disease Bilateral carotid artery stenosis PAD (peripheral artery disease) Murmur HTN (hypertension) Hyperlipidemia COPD (chronic obstructive pulmonary disease) SOB (shortness of breath) Allergic rhinitis Nicotine dependence, cigarettes, uncomplicated GERD (gastroesophageal reflux disease) Tubular adenoma of colon Porphyria cutanea tarda Arthritis Surgical History History of femoropopliteal bypass History of femoropopliteal bypass (11/02/23) S/P angiogram of extremity History of colonoscopy History of esophagogastroduodenoscopy History of lipoma History of skin graft History of removal of cyst History of foot surgery Family History Father Diabetes Stroke Hypertension Mother Chronic mental illness Family/Other FH: mental illness Social History Household Members: Spouse Housing: House Are you a primary healthcare applications analyst to a significant other at home: No Do you presently have visiting nurse or other home services: No 75 years or older and lives alone: No Alcohol intake: current Alcohol intake frequency: a few times a month Alcohol type: beer Comment: residual pain in left foot, but much improved and tolerable per patient. 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 occupational exposures/hazards: No Cognitive needs: No Hearing needs: No Vision needs: Yes Review of Systems Const Denies chills, Denies fatigue, Denies fever(s), Denies frequent falls, Denies weakness, Denies weight gain and Denies weight loss ENT Denies dizziness Card Denies chest pain, Denies leg edema, Denies lightheadedness, Denies palpitations, Denies dyspnea and Denies dyspnea on exertion Resp Denies cough, Denies dyspnea and Denies dyspnea on exertion GI Denies hematochezia Musc Denies abnormal gait, Denies muscle weakness, Denies numbness, Denies radiating pain into limb and Denies tingling Neuro Denies abnormal gait, Denies dizziness, Denies frequent falls, Denies numbness, Denies tingling and Denies weakness Endo Denies fatigue and Denies palpitations Physical Exam Vital Signs: Last Vital Signs Pulse 96 06/20/25 14:46 BP 100/62 06/20/25 14:46 BMI result Body Mass Index 21.6 Const General: comfortable and no acute distress Orientation/consciousness: patient oriented x3 HEENT Other: Unremarkable Head: Yes normal to inspection Neck Neck: Yes normal visual inspection Chest Chest palpation & inspection: normal inspection of the chest Resp Auscultation: clear to auscultation bilaterally Cardio Palpation: normal PMI Heart sounds: S1 normal heart sound present, S2 normal heart sound present, no gallops, no murmurs and no rubs GI Palpation (GI): Soft to palpation Back/Spine/Pelvis Other: unremarkable Skin General skin exam: no rashes or lesions noted Neuro General: patient oriented x3 Extrem General: Yes normal to inspection Psych Mental Status: mental status grossly normal Office Procedures EKG Details: EKG with underlying sinus rhythm at 96/Min; rightward axis; pulmonary disease pattern; [place] [id number], Complete Assessment & Plan Assessment & Plan (1) Atherosclerotic cardiovascular disease: Code(s): I25.10 - Atherosclerotic heart disease of [place] coronary artery without angina pectoris Category: Medical (2) PAD (peripheral artery disease): Comment: 06/16/2022 - left femoral to popliteal bypass 10/21/2023 - Left external iliac plasty 11/02/2023 - thrombectomy of left fem-pop bypass with distal anastomosis plasty Code(s): I73.9 - Peripheral vascular disease, unspecified Category: Medical (3) Nicotine dependence, cigarettes, uncomplicated: Comment: (current smoker, onset 17yo, 1ppd x 46yrs, had cut it down to few cigarettes a day but In the past 6 months has gone back to 15-20 CIGARETTES a day, Code(s): F17.210 - Nicotine dependence, cigarettes, uncomplicated Category: Medical (4) Preoperative cardiovascular examination: Code(s): Z01.810 - Encounter for preprocedural cardiovascular examination Category: Medical Plan Multiple risk factors, established peripheral vascular disease but no documented coronary disease. At high-risk for the same. Last echocardiogram with LVEF of 60-65% otherwise unremarkable. Last perfusion imaging study with mild reversible distal anterior/apical defect but there was improvement with CT attenuation correction and normal contractility. Hence thought to be more from soft tissue attenuation artifact and less likely from mild ischemia. Chest CT scan however does show some coronary artery calcification. Overall, stable vascular disease without any cardiac symptoms. Continue to pursue smoking cessation strategies. Discussed about this today. Blood pressure is stable on amlodipine and losartan. For dyslipidemia, on statins. Last LDL 75 mg/dL and triglycerides 55 mg/dL. With regard to the laparoscopic cholecystectomy, may proceed as planned. Intermediate cardiac risk. Strongly advised not to smoke at least on the days preceding surgery. May interrupt antiplatelet therapy as required before surgery. Total time spent including review of data, counseling, documentation, coordination of care-32 minutes. Coding Level of Care Code Est Pt Level 4 (36305) Complex EM visit Add On G2211 Diagnoses Atherosclerotic cardiovascular disease I25.10 PAD (peripheral artery disease) I73.9 Nicotine dependence, cigarettes, uncomplicated F17.210 Preoperative cardiovascular examination Z01.810 CPT Codes EKG - CPT: 62413-[id number], Complete ([id number])
[2025-06-20 14:46] VITALS: BP 100/62; PULSE 96; BMI 21.6
--- OUTSIDE RECORDS SUMMARY | 2025-06-20 17:51 | XMS_ITS | Clinical Summary ---
Author Organization [facility] Address [address] [place] [address] Care Team Providers Care Customer Relations Assistant Name Role Phone Goldie Watkins MD Primary [...] age to complete this topic Care Teams Customer Relations Assistant Relationship Specialty Start Date End Date Goldie Watkins MD [address] [place] [address] , [address] [facility] D/B/A: [facility] CARL[place] Melendrez [id number] PCP - General Internal Medicine 06/08/17
--- OUTSIDE RECORDS SUMMARY | 2025-06-20 17:51 | XMS_ITS | Patient Health Record ---
Author Organization Ashish Huertas III, MD Address [address] [place] [address] Care Team Providers Care Transportation Consultant Name Role Phone Dr. Ashish Huertas III [...] 1.3 BLD Neg Negative - Routine Culture Reviewed date:06/19/2025 05:40:55 AM Interpretation: Performing Lab:[facility], [address] [place] [phone] Notes/Report: Routine Culture Report - external Routine Culture 4+ Mixed skin wesley O:CANPAR Tereza parapsilosis Routine Culture Quant Org ID Routine Culture 2+ Ferritin Reviewed date:06/19/2025 05:40:55 AM Interpretation: Performing Lab:[facility], [address] [place] [phone] Notes/Report: Ferritin 68 20-250 ng/mL US arterial duplex BI w/ KAI Reviewed date:09/24/2024 07:13:25 AM Interpretation: Performing Lab: Notes/Report: [address] [address] Ultrasound Report Signed Patient: Sid Landeros MR#: [id number] : 1960 Acct:[id number] Age/Sex: 63 / M ADM Date: 08/22/24 Loc: . Attending Dr: Jhony Orr MD Ordering Physician: Jhony Orr MD Date of Service: 08/22/24 Procedure(s): US arterial duplex BI w/ KAI Accession Number(s): [id number] cc: Ashish Huertas MD; Jhony Orr MD [...] 09/23/24 1831 DD/ 1133 TD/TT: 08/22/24 1210 Computer Compositor: [address] [address] Ultrasound Report Signed Patient: Marlo Landeros MR#: [id number] : 1960 Acct:[id number] Age/Sex: 63 / M ADM Date: 08/22/24 Loc: HO.US Attending Dr: Jhony Orr MD Ordering Physician: Jhony Orr MD Date of Service: 08/22/24 Procedure(s): US arterial duplex BI w/ KAI Accession Number(s): [id number] cc: Ashish Huertas MD; Jhony Orr MD [...] by: Sultana Beaver MD 09/23/2024 06:31 PM [facility] [place] Dictated By: Twyla Beaver Signed By: <Electronically signed by Twyla Beaver in OV> 09/23/24 1831 DD/ 1133 TD/TT: 08/22/24 1210 Computer Compositor: US abdomen complete Reviewed date:02/16/2025 05:27:55 AM Interpretation: Performing Lab: Notes/Report: [place] [address] Ultrasound Report Signed Patient: Sid Landeros MR#: [id number] : 1960 Acct:[id number] Age/Sex: 64 / M ADM Date: 11/29/24 Loc: HO.US Attending Dr: Wen Diaz MD Ordering Physician: Wen Diaz MD Date of Service: 11/29/24 Procedure(s): US abdomen complete Accession Number(s): [id number] cc: Ashish Huertas MD; Wen Diaz MD [...] 11/30/24 0739 DD/ 1033 TD/TT: 11/29/24 1054 Computer Compositor: [place] [address] Ultrasound Report Signed Patient: Marlo Landeros MR#: [id number] : 1960 Acct:[id number] Age/Sex: 64 / M ADM Date: 11/29/24 Loc: HO.US Attending Dr: Wen Diaz MD Ordering Physician: Wen Diaz MD Date of Service: 11/29/24 Procedure(s): US abdomen complete Accession Number(s): [id number] cc: Ashish Huertas MD; Wen Diaz MD [...] by: Naman Roth MD 11/30/2024 07:39 AM [facility] [place] Dictated By: Naman Roth MD Signed By: <Electronically signed by Naman Roth MD in OV> 11/30/24 0739 DD/ 1033 TD/TT: 11/29/24 1054 Computer Compositor: ABEL Gram stain Reviewed date:06/19/2025 05:40:55 AM Interpretation: Performing Lab:[address] [address] Notes/Report: Gram stain Gram stain results: Gram stain No polys Gram stain 1+ epithelial cells Gram stain 1+ Gram-positive cocci Gram stain 1+ Gram-positive rods Complete Blood Count Auto Di ff Reviewed date:06/19/2025 05:40:55 AM Interpretation: Performing Lab:[address] [address] Notes/Report: White Blood Count 4.1 4.8-10.8 X10*3/uL [...] NRBC Abs Auto 0.000 0.0-0.012 X10*3/uL Comprehensive Freeman. Panel Fa st Reviewed date:06/19/2025 05:40:55 AM Interpretation: Performing Lab:[facility], [address] [place] [phone] Notes/Report: Sodium 132 135-145 mmol/L Potassium 4.3 [...] Alkaline Phosphatase 157 39-117 U/L Lipid Panel Reviewed date:06/19/2025 05:40:55 AM Interpretation: Performing Lab:[address] [address] Notes/Report: Triglycerides 55 <150 mg/dL Desirable Triglyceride: [...] with liver disease. Prostate Specific Antigen Reviewed date:06/19/2025 05:40:55 AM Interpretation: Performing Lab:[address] [address] Notes/Report: Prostate Specific Antigen 1.08 <0.05-4.0 ng/mL PSA methodology: Coyne Alinity i Chemiluminescent Microparticle Immunoassay (CMIA) US abdomen limited Reviewed date:06/19/2025 05:40:55 AM Interpretation: Performing Lab: Notes/Report: [address] [address] Ultrasound Report Signed Patient: Sid Landeros MR#: [id number] : 1960 Acct:[id number] Age/Sex: 64 / M ADM Date: 06/05/25 Loc: HO.US Attending Dr: Victor Manuel Calderón MD Ordering Physician: Victor Manuel Calderón MD Date of Service: 06/05/25 Procedure(s): US abdomen limited Accession Number(s): [id number] cc: Ashish Huertas MD; Victor Manuel Calderón [...] 06/05/2025 08:45 AM EDT Dictated By: Ashish Manriquze MD Signed By: <Electronically signed by Ashish Manriquez MD in OV> 06/05/25 0845 DD/ 0802 TD/TT: 06/05/258[address] Computer Compositor: [address] [address] Ultrasound Report Signed Patient: Marlo Landeros MR#: [id number] : 1960 Acct:[id number] Age/Sex: 64 / M ADM Date: 06/05/25 Loc: HO.US Attending Dr: Callie Meier MD Ordering Physician: Victor Manuel Calderón MD Date of Service: 06/05/25 Procedure(s): US abdomen limited Accession Number(s): [id number] cc: Ashish Huertas MD; Victor Manuel Calderón [...] Manriquez MD in OV> 06/05/25 0845 DD/ 08 TD/TT: 06/05/25 0813 Computer Compositor: Complete Blood Count Auto Di ff Reviewed date:06/19/2025 05:40:55 AM Interpretation: Performing Lab:[facility], [address] [place] [phone] Notes/Report: White Blood Count 5.6 4.8-10.8 X10*3/uL [...] Abs Auto 0.000 0.0-0.012 X10*3/uL Therapeutic Phlebotomy Reviewed date:06/19/2025 05:40:55 AM Interpretation: Performing Lab:[facility], [address] [place] [phone] Notes/Report: THER/HGB TNP 14.0-18.0 g/dL Lab Results on file. Performed at [facility] on 06/14/25: Hgb: 14.5 g/dl Hct: [...] Status W/U Status Risk Notes Problem Hyperlipidemia (33485277) Hyperlipidemia (E78.5) Active confirmed Comprehensive blood work with a fasting lipid profile is being done periodically. Problem 803623612 Overweight (E66.3) Active confirmed His body mass index is now 23.6 and this problem has resolved. Problem Hypertension (06820610) Hypertension (I10) Active confirmed His blood pressure has been 134/77. No change in his regimen was made. I encouraged him to pursue aggressive sodium restriction. He was given an appointment to come to the office and recheck his blood pressure.He will continue on the losartan given by cardiology. 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. He affirms that if he goes into direct sunlight. He will experience blisters and skin lesions. He is well versed in how to prevent this and has medications for his skin. Problem 384399469 Other hemochromatosis (E83.118) Active confirmed We will resume the phlebotomy at one-month intervals until he is iron deficient and than every 4 months. Problem 758725072 Acute bronchitis due to other specified organisms (J20.8) Active confirmed He is producing green phlegm and says he is wheezing. The inhaler is helping. He was given a Zithromax and prednisone with a follow-up visit. Problem Benign prostatic hyperplasia (108573792) BPH (benign prostatic hyperplasia) (N40.0) Active confirmed He arises from sleep about once a night to urinate. We have discussed lifestyle modifications he could make to reduce this. Problem 43137683 Tobacco dependence (F17.200) Active confirmed He continues to smoke a package of cigarettes every day. We discussed the health consequences of this. His COPD has been stable and inactive recently. I made him aware of the smoking cessation programs and the local hospitals and this community. Problem COPD - Chronic obstructive pulmonary disease (95055024) COPD (chronic obstructive pulmonary disease) (J44.9) Active [...] lung cancer, COPD, oxygen dependence, etc. Problem 051321246 Ear infection (H66.90) Active confirmed He has complete d a course of antibiotics for the skin inflammation on each year. A repeat culture grew only Tereza. The appearance is much improved. Problem 35288109 Viral syndrome (B34.9) Active confirmed I'm going to speak to him on a daily basis because of the risk of progression of respiratory disease. He has continued to smoke and has COPD. He will continue to use his inhalers as directed. If necessary he will be given oral prednisone and an antibiotic. Problem 48226635 Pilonidal cyst (L05.91) Active confirmed He had an excision and repair of this cyst years ago. It is healed and no longer bothers him. Problem 991970876 Peripheral arterial disease (I73.9) Active confirmed His claudicatio n is stable at 1 block. He recently saw the vascular surgeon. He recently underwent a revision of his left femoral-popliteal bypass graft. The wound is now healed. He experiences some claudication in his right leg and is able to walk one block without stopping to rest. Problem 877357646 Age-related incipient cataract of both eyes (H25.093) Active confirmed He is schedul ed for cataract extraction sequentially later this month. I have taken. A careful history and examined him thoroughly. There is no contraindication to surgery at this time. The benefit is great in the risk is small. He is given medical clearance for both procedures. Problem 971127883 Lumbar radiculopathy, right (M54.16) Active confirmed He continues to have pain that comes from his lower lumbar spine and right paravertebral muscles that radiates into his right buttock. X-rays have shown degenerative disease. The pain is aggravated with walking more than 10 feet and lifting more than 10 pounds. He has been referred to [facility] in [facility] spine and sports rehabilitation medicine for physical therapy injections imaging and evaluation for surgery. Problem 69289992 Acute diffuse otitis externa of both ears (H60.313) Active confirmed The left ear wa s primarily involved. The otic canalWas uninvolved. The tympanic membrane was normal. A prescription for Bactrim was given to him. Problem 81500750 Staphylococcus infection (B95.8) Active confirmed This seems [...] Provider Diagnosis Ashish Huertas III, MD [address] [place] [address] [place] [phone] 08/02/2024 Ashish Huertas Infection of pelvis M86.9 ; Peripheral arterial disease I73.9 ; COPD (chronic obstructive pulmonary disease) J44.9 ; Lumbar radiculopathy, right M54.16 ; BPH (benign prostatic hyperplasia) N40.0 and Hypertension I10 Ashish Huertas III, MD [address] [place] [address] [place] [phone] 08/15/2024 Ashish Huertas Infection of pelvis M86.9 ; Hypertension I10 ; BPH (benign prostatic hyperplasia) N40.0 ; COPD (chronic obstructive pulmonary disease) J44.9 ; Peripheral arterial disease I73.9 and Lumbar radiculopathy, right M54.16 Ashish Huertas III, MD [address] [place] [address] [place] [address] 10/28/2024 Ashish Huertas Hypertension I10 ; C OPD (chronic obstructive pulmonary disease) J44.9 ; BPH (benign prostatic hyperplasia) N40.0 ; Peripheral arterial disease I73.9 ; Tobacco dependence F17.200 ; Porphyria cutanea tarda E80.1 ; Lumbar radiculopathy, right M54.16 and Overweight E66.3 Ashish Huertas III, MD [address] [place] [address] [place] [phone] 11/15/2024 Ashish Huertas Acute bronchitis due to other specified organisms J20.8 ; COPD (chronic obstructive pulmonary disease) J44.9 ; Tobacco dependence F17.200 ; Lumbar radiculopathy, right M54.16 ; Porphyria cutanea tarda E80.1 ; Hyperlipidemia E78.5 ; Hypertension I10 and Peripheral arterial disease I73.9 Ashish Huertas III, MD [address] [place] [address] [place] [address] 01/10/2025 Ashish Huertas Acute diffuse otitis externa of both ears H60.313 ; Lumbar radiculopathy, right M54.16 ; Hypertension I10 ; BPH (benign prostatic hyperplasia) N40.0 ; Peripheral arterial disease I73.9 ; Tobacco dependence F17.200 ; Porphyria cutanea tarda E80.1 and COPD (chronic obstructive pulmonary disease) J44.9 Ashish Huertas III, MD [address] [place] [address] [place] [address] 01/18/2025 Ashish Huertas Acute bronchitis due to other specified organisms J20.8 ; Hypertension I10 ; BPH (benign prostatic hyperplasia) N40.0 ; COPD (chronic obstructive pulmonary disease) J44.9 ; Peripheral arterial disease I73.9 and Lumbar radiculopathy, right M54.16 Ashish Huertas III, MD [address] [place] [address] [place] [phone] 01/23/2025 Ashish Huertas Viral syndrome B34.9 ; COPD (chronic obstructive pulmonary disease) J44.9 ; Hypertension I10 ; BPH (benign prostatic hyperplasia) N40.0 ; Peripheral arterial disease I73.9 ; Tobacco dependence F17.200 ; Porphyria cutanea tarda E80.1 and Lumbar radiculopathy, right M54.16 Ashish Huertas III, MD [address] [place] [address] [place] [phone] 02/14/2025 Ashish Huertas Staphylococcus infec tion B95.8 ; Hypertension I10 ; BPH (benign prostatic hyperplasia) N40.0 ; COPD (chronic obstructive pulmonary disease) J44.9 ; Peripheral arterial disease I73.9 ; Lumbar radiculopathy, right M54.16 ; Tobacco dependence F17.200 and Porphyria cutanea tarda E80.1 Ashish Huertas III, MD [address] [place] [address] [place] [address] 02/28/2025 Ashish Huertas BPH (benign prostati c hyperplasia) N40.0 ; Age-related incipient cataract of both eyes H25.093 ; Overweight E66.3 ; Hyperlipidemia E78.5 ; Ear infection H66.90 and COPD (chronic obstructive pulmonary disease) J44.9 Ashish Huertas III, MD [address] [place] [address] [place] [phone] 06/07/2025 Ashish Huertas Tobacco dependence F17.200 ; Other hemochromatosis E83.118 ; COPD (chronic obstructive pulmonary disease) J44.9 ; Hypertension I10 ; BPH (benign prostatic hyperplasia) N40.0 and Pilonidal cyst L05.91 Ashish Huertas III, MD [address] [place] [address] [place] [phone] 07/01/2024 Ashish Huertas III, MD [address] [place] [address] [place] [address] 10/04/2024 Ashish Huertas Infection of pelvis M86.9 Ashish Huertas III, MD [address] [place] [address] [place] [phone] 11/21/2024 Ashish Huertas III, MD [address] [place] [address] [place] [phone] 11/21/2024 Ashish Huertas III, MD [address] [place] [address] [place] [phone] 12/19/2024 Ashish Huertas III, MD [address] [place] [address] [place] [phone] 01/24/2025 Ashish Huertas III, MD [address] [place] [address] [place] [phone] 04/07/2025 Ashish Huertas Assessments Encounter Date Diagnosis [...] 10 pounds. He has been referred to [facility] spine and sports rehabilitation medicine [...] 10 pounds. He has been referred to [facility] in [facility] spine and sports rehabilitation [facility] for physical therapy injections imaging and [...] 10 pounds. He has been referred to [facility] in [facility] spine and sports [facility] for physical therapy injections imaging and [...] diagnosis of porphyria was made by a physician ophthalmologist at [facility]. He affirms that if he goes into [...] 10 pounds. He has been referred to [facility] in [facility] spine and sports [facility] for physical therapy injections imaging and evaluation for surgery. 10/28/2024 Porphyria cutanea tarda (ICD-10 - E80.1) The diagnosis of porphyria was made by a physician ophthalmologist at [facility]. He affirms that if he goes into [...] 10 pounds. He has been referred to [facility] in [facility] spine [facility] for physical therapy injections imaging and evaluation [...] 10 pounds. He has been referred to [facility] in [facility] spine and sports [facility] for physical therapy injections imaging and [...] 10 pounds. He has been referred to [facility] in [facility] spine and sports rehabilitation medicine for physical [...] diagnosis of porphyria was made by a physician ophthalmologist at [facility]. He affirms that if he goes into direct sunlight. He will experience blisters and skin lesions. He is well versed in how to prevent this and has medications for his skin. 01/23/2025 Porphyria cutanea tarda (ICD-10 - E80.1) The diagnosis of porphyria was made by a physician ophthalmologist at [facility]. He affirms that if he goes into [...] 10 pounds. He has been referred to [facility] spine and sports rehabilitation medicine for physical therapy injections imaging and evaluation for surgery. 02/14/2025 Porphyria cutanea tarda (ICD-10 - E80.1) The diagnosis of porphyria was made by a physician ophthalmologist at [facility]. He affirms that if he goes into [...] 05/23/2024 PROFILE, FASTING (COMPREHENSIVE METABOLI C) 06/07/2025 PROFILE, FASTING (COMPREHENSIVE METABOLI C) 09/23/2023 PROFILE, FASTING (COMPREHENSIVE METABOLI C) 02/28/2025 PROFILE, FASTING (COMPREHENSIVE METABOLI C) 10/28/2024 LIPID PANEL 01/15/2023 LIPID PANEL 09/15/2022 GGT 06/07/2025 PSA, TOTAL 09/23/2023 PSA, TOTAL 02/28/2025 PSA, TOTAL 10/28/2024 PSA, TOTAL 05/23/2024 PSA, TOTAL 01/15/2023 PSA, TOTAL 09/15/2022 CBC w DIFF 06/07/2025 CBC w DIFF 09/23/2023 CBC w DIFF 02/28/2025 CBC w DIFF 01/15/2023 CBC w DIFF 09/15/2022 XR LUMBAR SPINE 09/23/2023 VITAMIN D 25-OH TOTAL 09/15/2022 CBC WITH AUTO DIFF 10/28/2024 CBC WITH AUTO DIFF 05/23/2024 Lipid Panel 06/07/2025 Lipid Panel 09/23/2023 Lipid Panel 02/28/2025 Lipid Panel 10/28/2024 Lipid Panel 05/23/2024 XR thoracic spine 3V 11/27/2023 Routine Culture 02/09/2024 Routine Culture 01/10/2025 Next Appt Details Provider Name:Ashish Huertas , 09/06/2025 10:30:00 AM, [address] [place] [address] [address], [place], [phone], Provider Name:Ashish Huertas , 10/31/2025 02:00:00 PM, [address] [place] [address] [address], [place], [phone], Insurance Providers Payer Name Payer Address Payer Phone Subscriber Number Group Number Insured Name Patient Relationship to Insured Coverage Start Date Coverage End Date [facility] [address] [place], [place] [id number] [phone] [id number] Sid Landeros Self - patient is the insured [address] [place] [address] [id number] Sid Landeros Self - patient is the insured Medical (General) History Medical History History ICD Code COPD (chronic obstructive pulmonary dise ase) J44.9 Hypertension I10 Erectile dysfunction Peripheral vascular disease Environmental allergies History of repaired pilonidal cyst Excised lipoma, left triceps, age 8 Porphyria cutanea [place], Dr. Brady, [facility] Tobacco dependence Covid19 infection 2021 Lumbar [...] Date(Month/Year) No history Arterial Bipass 05/2022 Colonoscopy, [facility], Dr. Ramos Fracture of 2 fingers Repair of pilonidal cyst Excision of lipoma, left triceps, age 8 Esophagogastricduodoscopy Femoral -popliteal arterial bypass @[facility] 05/2022 Hospitalization History Reason Date(Month/Year)
== END 2025-06-20 15:08 | disposition home or self-care (01) ==
PROVIDERS: PCP Internal Medicine Medical Oncology; Visit Provider Internal Medicine
DX: I25.10 Atherosclerotic heart disease of native coronary artery without angina pectoris (principal); I73.9 Peripheral vascular disease, unspecified; F17.210 Nicotine dependence, cigarettes, uncomplicated; Z01.810 Encounter for preprocedural cardiovascular examination
CPT/HCPCS: 93010; 99214; G2211

== ENCOUNTER → 2025-06-20 14:39 | Outpatient (BNVA) | payer OTHER, SELFPAY | PROVIDERS: PCP Internal Medicine Medical Oncology; Visit Provider Internal Medicine | DX: Z01.810 Encounter for preprocedural cardiovascular examination (principal); I25.10 Atherosclerotic heart disease of native coronary artery without angina pectoris; I73.9 Peripheral vascular disease, unspecified; F17.210 Nicotine dependence, cigarettes, uncomplicated; R94.31 Abnormal electrocardiogram [ECG] [EKG] | CPT/HCPCS: 93005 ==

== ENCOUNTER 2025-06-22 13:54 | Outpatient (REF) | payer BC, OTHER, SELFPAY ==
--- NOTE | ~2025-06-22 | US_ITS ---
EXAMINATION: Noninvasive assessment of the bilateral lower extremities with ARTERIAL DUPLEX, ANKLE BRACHIAL INDICES (ABIs), and PULSE VOLUME RECORDINGS (PVRs). CLINICAL INFORMATION: I73.9. Peripheral vascular disease. Left femoropopliteal bypass.. TECHNIQUE: Duplex Doppler techniques with waveform analysis and measurement of velocities in the bilateral common femoral, profunda femoris, superficial femoral, popliteal and tibial arteries were performed. Additionally, ankle pulse volume recordings, ankle pressure measurements and ankle brachial indices were obtained of the lower extremity arterial system bilaterally. The study was performed only at rest. COMPARISON: August 22, 2024. FINDINGS: Calcified plaques. DIRECT DUPLEX DOPPLER FINDINGS: RIGHT LEG: Common femoral artery: 161 cm/s, phasicity: Triphasic. Profunda femoris artery: 71 cm/s, phasicity: Triphasic. Spectral broadening. Superficial femoral artery (proximal): 80 cm/s, phasicity: Triphasic. Spectral broadening. Superficial femoral artery (mid): 45 cm/s, phasicity: Biphasic. Spectral broadening. Superficial femoral artery (distal): 15 cm/s, phasicity: Monophasic. Spectral broadening. Popliteal artery: 11 cm/s, phasicity: Monophasic. Spectral broadening. Posterior tibial artery: 20 cm/s, phasicity: Monophasic. Peroneal artery: 40 cm/s, phasicity: Monophasic. Spectral broadening. Anterior tibial artery: 19 cm/s, phasicity: Monophasic. Spectral broadening. Dorsalis pedis artery: 6 cm/s, phasicity:Monophasic. Spectral broadening. LEFT LEG: Common femoral artery: 222 cm/s, phasicity: [Triphasic. Spectral broadening. Profunda femoris artery: 75 cm/s, phasicity: Biphasic. Popliteal artery: 57 cm/s, phasicity: [Triphasic. Posterior tibial artery: 113 cm/s, phasicity: Biphasic. Peroneal artery: 62 cm/s, phasicity: Biphasic. Anterior tibial artery: 95 cm/s, phasicity: Triphasic. Spectral broadening. Dorsalis pedis artery: 10 cm/s, phasicity: Monophasic. Spectral broadening. Left femoral popliteal bypass: Inflow artery: 222 cm/s and triphasic waveform. Proximal to the anastomosis: 101 cm/s. Triphasic waveform. Proximal bypass graft: 73 cm/s and triphasic waveform. Mid bypass graft: 55 cm/s and biphasic waveform. Distal bypass graft: 64 cm/s and triphasic waveform. Distal anastomosis site: 79 cm/s and triphasic waveform. Outflow artery: 57 cm/s and biphasic waveform. BRACHIAL PRESSURES: Right: 143 Left: 142 ANKLE PRESSURES: Right: PT 102, DP not recorded. Left: PT 136, DP 145 ANKLE-BRACHIAL INDEX: Right: 0.71 Left: 0.99. ANKLE PVR WAVEFORMS: Right: Abnormal Left: Abnormal US/US arterial duplex BI w/ KAI IMPRESSION: Right: Severe inflow, distal superficial femoral artery to dorsalis pedis artery. Left: Severe inflow disease, dorsalis pedis artery. Patency of the left femoropopliteal bypass. KAI Reference: - >1.4 = calcified vessels - 0.9 - 1.4 = normal - no significant arterial disease - 0.7 - 0.89 = mild peripheral arterial disease - 0.51 - 0.69 = moderate peripheral arterial disease - 0.50 = severe peripheral arterial disease - < .30 = critical arterial disease Electronically signed by: Frederick Garcia MD 06/22/2025 03:36 PM EDT
== END 2025-06-22 13:55 | disposition home or self-care (01) ==
LOC: HO.US 13:54
PROVIDERS: PCP Internal Medicine Medical Oncology; Visit Provider Surgery Vascular Surgery
DX: I73.9 Peripheral vascular disease, unspecified (principal)
CPT/HCPCS: 93922; 93925

== ENCOUNTER → 2025-06-22 13:57 | Outpatient (BNV) | payer BC, OTHER, SELFPAY | PROVIDERS: PCP Internal Medicine Medical Oncology; Visit Provider Radiology Diagnostic Radiology | DX: I73.9 Peripheral vascular disease, unspecified (principal) | CPT/HCPCS: 93922; 93925 ==

== ENCOUNTER 2025-06-29 09:39 | Day surgery (SDC) | payer BC, OTHER, SELFPAY ==
--- OUTSIDE RECORDS SUMMARY | 2025-02-14 10:00 | XMS_ITS ---
Author Organization Ashish Huertas III, MD Address [address] [place] [address] Care Team Providers Care Intern Retail Name Role Phone Dr. Ashish Huertas III Primary Care Provider Allergies Allergen (clinical drug ingredient) Drug/Non Drug Allergy documented on EMR Reaction Allergy Type Onset Date Status doxycycline Doxycycline Unknown Drug Allergy Act henrry Results Component Value Reference Range Notes Routine Culture Reviewed date:06/19/2025 05:40:55 AM Interpretation: Performing Lab:[facility], [address] [place] [phone] Notes/Report: Routine Culture Report - external Routine [...] Problem Status W/U Status Risk Notes Problem [id number] Staphylococcus infection (B95.8) Active confirmed This seems [...] Date Provider Diagnosis Ashish Huertas III, MD [address] [place] [address] [place] [address] 02/14/2025 Ashish Huertas Staphylococcus infec tion B95.8 [...] 10 pounds. He has been referred to [facility] spine and sports rehabilitation medicine for [...] diagnosis of porphyria was made by a lean specialist at [facility]. He affirms that if he [...] MG 1 tablet Orally Once a day 11/ 01/2024 Losartan Potassium 25 MG 1 tablet [...] Twice a day Ibuprofen 800 MG Oral Next Appt Details Follow Up: As Scheduled, Elisabet son: OV Provider Name:Ashish Huertas , 09/06/2025 10:30:00 AM, [address] [place] [address] [address], [place], [phone], Provider Name:Ashish Huertas , 10/31/2025 02:00:00 PM, [address] [place] [address] [address], [place], [phone], Progress Notes * Sid LANDEROS MDOB: 2 (64 yo M)Acc No.[id number]:02/14/2025 Progress Notes Patient: Logan AUGUSTIN Sid Mili Provider: Frantz Huertas MD :1960 A ge:64 Y S ex:Male Date:02/14/2025 Address:[address] [place] [address] [id number] Subjective: * Chief Complaints: * b ilateral [...] Surgical History: F emoral -popliteal [place] [place]Esophagogastricduodoscopy Excision of lipoma, left triceps, age 8 Repair of pilonidal cyst Fracture of 2 fingers Colonoscopy, [facility], Dr. Ramos Arterial Bipass 05/2022No history [...] 10 pounds. He has been referred to [facility] spine and sports rehabilitation medicine for [...] diagnosis of porphyria was made by a lean specialist at [facility]. He affirms that if he [...] MD Date: 0 02/14/2025 Generated for Vanessa rodriguez/Namita/eTkatitting on: 0 06/22/2025 06:08 PM EDT History and Physical Notes * [...]
--- OUTSIDE RECORDS SUMMARY | 2025-02-28 11:30 | XMS_ITS ---
Author Organization Ashish Huertas III, MD Address [address] [facility] [address] [place] [place] [address] Care Team Providers Care Qc Tech Name Role Phone Dr. Ashish Huertas III [...] Problem Status W/U Status Risk Notes Problem 136932382 Ear infection (H66.90) Active confirmed He has complete d a course of antibiotics for the skin inflammation on each year. A repeat culture grew only Tereza. The appearance is much improved. Problem 774910800 Age-related incipient cataract of both eyes (H25.093) [...] Date Provider Diagnosis Ashish Huertas III, MD [address] [place] [address] [place] [address] 02/28/2025 Ashish Huertas BPH (benign prostati c [...] Name:Ashish Huertas , 09/06/2025 10:30:00 AM, [address] [facility] [address], [place], [address], Provider Name:Ashish Huertas , 10/31/2025 02:00:00 PM, [address] [place] [address] [address], [place], [address], Progress Notes * Sid LANDEROS MDOB: 2 (64 yo M)Acc No.[id number]:02/28/2025 Patient: Sid COBOS Provider: Frantz Huertas MD :1960 A ge:64 Y S ex:Male Date:02/28/2025 Address:[address] [place] [address] KEVIN, [place]TUNEZTQ-[id number] Subjective: * Chief Complaints: * M edical [...] Surgical History: [place] [place]Esophagogastricduodoscopy Excision of lipoma, left triceps, age 8 Repair of pilonidal cyst Fracture of 2 fingers Colonoscopy, [facility], Dr. Ramos Arterial Bipass 05/2022No history * [...] MD Date: 0 02/28/2025 Generated for Vanessa rodriguez/Namita/Martínezransmitting on: 0 06/22/2025 06:07 PM EDT History and Physical Notes * [...]
--- OUTSIDE RECORDS SUMMARY | 2025-04-07 05:42 | XMS_ITS ---
Author Organization Ashish Huertas III, MD Address [address] [place] [address] [place] [address] Care Team Providers Care Early Childhood Assistant Name Role Phone Dr. Ashish Huertas III Primary Care Provider REASON FOR VISIT Needs call back from Social History Sex Assigned At : Social History Observation Description Sex Assigned At Male Encounters Encounter Location Date Provider Diagnosis Ashish Huertas III, MD [address] [place] [address] [place] [address] 04/07/2025 Ashish Huertas Plan Of Treatment Next Appt Details Provider Name:Ashish Huertas , 09/06/2025 10:30:00 AM, [address] [place] [address] [place], [address], Provider Name:Ashish Huertas , 10/31/2025 02:00:00 PM, [address] [place] [address] [place], [address], Progress Notes * Sid LANDEROS MDOB: 2 (64 yo M)Acc No.[id number]:04/07/2025 Patient: Logan MALLORYSUPRIYASid :1960 A ge:64 Y S ex:Male Address:[address] [place], [address] * true * Date: Generated for Printi ng/Faxing/eTransmitting on: 0 06/22/2025 06:07 PM EDT
--- OUTSIDE RECORDS SUMMARY | 2025-06-02 05:00 | XMS_ITS ---
Author Organization Ashish Huertas III, MD Address [address] [facility] [address] [place] [address] Care Team Providers Care Motion Picture Operator Name Role Phone Dr. Ashish Huertas III Primary Care Provider [phone] Allergies Allergen (clinical drug ingredient) Drug/Non Drug [...] Date Provider Diagnosis Ashish Huertas III, MD [address] [place] [address] [place] [address] 06/02/2025 Ashish Huertas Plan Of Treatment Medication [...] Provider Name:Ashish Huertas , 09/06/2025 10:30:00 AM, [address] [place] [address] [address], [place], [address], Provider Name:Ashish Huertas , 10/31/2025 02:00:00 PM, [address] [place] [address] [place], [address], Progress Notes * Sid LANDEROS MDOB: 2 (64 yo M)Acc No.[id number]:06/02/2025 Progress Notes Patient: Sid COBOS Provider: Frantz Huertas MD :1960 A ge:64 Y S ex:Male Date:06/02/2025 Address:[address] [place] [address], [id number] Subjective: * Chief Complaints: * 1 . [...] age 8, Porphyria cutanea tarda, Dr. Brady, [facility], Tobacco dependence, Covid19 infection 2021, [...] History: F emoral [place] [place], Esophagogastricduodoscopy , Excision of lipoma, left triceps, age 8 , Repair of pilonidal cyst , Fracture of 2 fingers , Colonoscopy, [facility], Dr. Ramos , Arterial Bipass 05/2022, No [...] Frantz Huertas MD Date: 06/02/2025 Generated for Vanessa rodriguez/Namita/Reyitting on: 06/22/2025 06:07 PM EDT History and Physical [...]
--- OUTSIDE RECORDS SUMMARY | 2025-06-07 11:00 | XMS_ITS ---
Author Organization Ashish Huertas III, MD Address [address] [address] Care Team Providers Care Ship Pilot Dispatcher Name Role Phone Dr. Ashish Huertas III Primary Care Provider Allergies Allergen (clinical drug ingredient) Drug/Non Drug Allergy documented on EMR Reaction Allergy Type Onset Date Status doxycycline Doxycycline Unknown Drug Allergy Act henrry Results Component Value Reference Range Notes Ferritin Reviewed date:06/19/2025 05:40:55 AM Interpretation: Performing Lab:[facility], [address] [place] [phone] Notes/Report: Ferritin 68 20-250 ng/mL REASON FOR [...] Problem Status W/U Status Risk Notes Problem [id number] Other hemochromatosis (E83.118) Active confirmed We will [...] Provider Diagnosis Ashish Huertas III, MD [address] [place] [address] [place] [address] 06/07/2025 Ashish Huertas Tobacco dependence F17.200 ; [...] Name:Ashish Huertas , 09/06/2025 10:30:00 AM, [address] [place] [address] , [address], [place], [address], Provider Name:Ashish Escobedorne , 10/31/2025 02:00:00 PM, [address] [place] [address] [address], [place], [address], Progress Notes * Sid LANDEROS MDOB: 2 (64 yo M)Acc No.[id number]:06/07/2025 Progress Notes Patient: Sid COBOS Provider: Frantz Huertas MD :1960 A ge:64 Y S ex:Male Date:06/07/2025 Address:[address] [place] [address], [id number] Subjective: * Chief Complaints: * O titisCOPDHypertensionPorphyriaTobacco [...] Surgical History: F emoral [place] [place]Esophagogastricduodoscopy Excision of lipoma, left triceps, age 8 Repair of pilonidal cyst Fracture of 2 fingers Colonoscopy, [facility], Dr. Ramos Arterial Bipass 05/2022No history * [...] Date: 06/07/2025 Generated for Vanessa rodriguez/Namita/Reyitting on: 06/22/2025 06:07 [...]
--- OUTSIDE RECORDS SUMMARY | 2025-06-22 18:08 | XMS_ITS | Clinical Summary ---
Author Organization [facility] Address [address] [place] [address] Care Team Providers Care Spring Encaser Name Role Phone Goldie Watkins MD Primary [...] age to complete this topic Care Teams Spring Encaser Relationship Specialty Start Date End Date Goldie Watkins MD [address] [place] [address] , [address] [facility] D/B/A: [facility] [place] [id number] PCP - General Internal Medicine 06/08/17
--- OUTSIDE RECORDS SUMMARY | 2025-06-22 18:08 | XMS_ITS | Patient Health Record ---
Author Organization Ashish Huertas III, MD Address [address] [place] [address] Care Team Providers Care Welding Equipment Sales Representative Name Role Phone Dr. Ashish Huertas III Primary Care Provider [phone] Allergies Allergen (clinical drug ingredient) Drug/Non Drug [...] Culture Reviewed date:06/19/2025 05:40:55 AM Interpretation: Performing Lab:[facility], [address] [place] [phone] Notes/Report: Routine Culture Report - external Routine Culture 4+ Mixed skin wesley O:CANPAR Tereza parapsilosis Routine Culture Quant Org ID Routine Culture 2+ Ferritin Reviewed date:06/19/2025 05:40:55 AM Interpretation: Performing Lab:[facility], [address] [place] [phone] Notes/Report: Ferritin 68 20-250 ng/mL US arterial duplex BI w/ KAI Reviewed date:09/24/2024 07:13:25 AM Interpretation: Performing Lab: Notes/Report: [address] [address] Ultrasound Report Signed Patient: Sid Landeros MR#: [id number] : 1960 Acct:[id number] Age/Sex: 63 / M ADM Date: 08/22/24 Loc: . Attending Dr: Jhony Orr MD Ordering Physician: Jhony Orr MD Date of Service: 08/22/24 Procedure(s): US arterial duplex BI w/ KAI Accession Number(s): [id number] cc: Ashish Huertas MD; Jhony Orr MD [...] 09/23/24 1831 DD/ 1133 TD/TT: 08/22/24 1210 Protein Specialist: [address] [address] Ultrasound Report Signed Patient: Marlo Landeros MR#: [id number] : 1960 Acct:[id number] Age/Sex: 63 / M ADM Date: 08/22/24 Loc: HO.US Attending Dr: Jhony Orr MD Ordering Physician: Jhony Orr MD Date of Service: 08/22/24 Procedure(s): US arterial duplex BI w/ KAI Accession Number(s): [id number] cc: Ashish Huertas MD; Jhony Orr MD [...] Sultana Beaver MD 09/23/2024 06:31 PM [facility] Dictated By: Twyla Beaver Signed By: <Electronically signed by Twyla Beaver in OV> 09/23/24 1831 DD/ 1133 TD/TT: 08/22/24 1210 Protein Specialist: US abdomen complete Reviewed date:02/16/2025 05:27:55 AM Interpretation: Performing Lab: Notes/Report: [place] [address] Ultrasound Report Signed Patient: Sid Landeros MR#: [id number] : 1960 Acct:[id number] Age/Sex: 64 / M ADM Date: 11/29/24 Loc: HO.US Attending Dr: Wen Diaz MD Ordering Physician: Wen Diaz MD Date of Service: 11/29/24 Procedure(s): US abdomen complete Accession Number(s): [id number] cc: Ashish Huertas MD; Wen Diaz MD [...] 11/30/24 0739 DD/ 1033 TD/TT: 11/29/24 1054 Protein Specialist: [place] [address] Ultrasound Report Signed Patient: Marlo Landeros MR#: [id number] : 1960 Acct:[id number] Age/Sex: 64 / M ADM Date: 11/29/24 Loc: HO.US Attending Dr: Wen Diaz MD Ordering Physician: Wen Diaz MD Date of Service: 11/29/24 Procedure(s): US abdomen complete Accession Number(s): [id number] cc: Ashish Huertas MD; Wen Diaz MD [...] Naman Roth MD 11/30/2024 07:39 AM [facility] Dictated By: Naman Roth MD Signed By: <Electronically signed by Naman Roth MD in OV> 11/30/24 0739 DD/ 1033 TD/TT: 11/29/24 1054 Protein Specialist: ABEL Gram stain Reviewed date:06/19/2025 05:40:55 AM Interpretation: Performing Lab:[address] [address] Notes/Report: Gram stain Gram stain results: Gram stain No polys Gram stain 1+ epithelial cells Gram stain 1+ Gram-positive cocci Gram stain 1+ Gram-positive rods Complete Blood Count Auto Di ff Reviewed date:06/19/2025 05:40:55 AM Interpretation: Performing Lab:[address] [address] Notes/Report: White Blood Count 4.1 4.8-10.8 X10*3/uL [...] NRBC Abs Auto 0.000 0.0-0.012 X10*3/uL Comprehensive Hutchinson. Panel Fa st Reviewed date:06/19/2025 05:40:55 AM Interpretation: Performing Lab:[facility], [address] [place] [phone] Notes/Report: Sodium 132 135-145 mmol/L Potassium 4.3 [...] Panel Reviewed date:06/19/2025 05:40:55 AM Interpretation: Performing Lab:[address] [address] Notes/Report: Triglycerides 55 <150 mg/dL Desirable Triglyceride: [...] Antigen Reviewed date:06/19/2025 05:40:55 AM Interpretation: Performing Lab:[address] [address] Notes/Report: Prostate Specific Antigen 1.08 <0.05-4.0 ng/mL PSA methodology: Coyne Alinity i Chemiluminescent Microparticle Immunoassay (CMIA) US abdomen limited Reviewed date:06/19/2025 05:40:55 AM Interpretation: Performing Lab: Notes/Report: [address] [address] Ultrasound Report Signed Patient: Sid Landeros MR#: [id number] : 1960 Acct:[id number] Age/Sex: 64 / M ADM Date: 06/05/25 Loc: HO.US Attending Dr: Victor Manuel Calderón MD Ordering Physician: Victor Manuel Calderón MD Date of Service: 06/05/25 Procedure(s): US abdomen limited Accession Number(s): [id number] cc: Ashish Huertas MD; Victor Manuel Calderón [...] OV> 06/05/25 0845 DD/ 0802 TD/TT: 06/05/25812 Protein Specialist: [address] [address] Ultrasound Report Signed Patient: Marlo Landeros MR#: [id number] : 1960 Acct:[id number] Age/Sex: 64 / M ADM Date: 06/05/25 Loc: HO.US Attending Dr: Callie Meier MD Ordering Physician: Victor Manuel Calderón MD Date of Service: 06/05/25 Procedure(s): US abdomen limited Accession Number(s): [id number] cc: Ashish Huertas MD; Victor Manuel Calderón [...] 06/05/25 0845 DD/ 08 TD/TT: 06/05/25 0813 Protein Specialist: Complete Blood Count Auto Di ff Reviewed date:06/19/2025 05:40:55 AM Interpretation: Performing Lab:[facility], [address] [place] [phone] Notes/Report: White Blood Count 5.6 4.8-10.8 X10*3/uL [...] Phlebotomy Reviewed date:06/19/2025 05:40:55 AM Interpretation: Performing Lab:[facility], [address] [place] [phone] Notes/Report: THER/HGB TNP 14.0-18.0 g/dL Lab Results on file. Performed at [facility] on 06/14/25: Hgb: 14.5 g/dl Hct: 39.6 % THER/HCT TNP 42.0-52.0 % Therapeutic Phlebotomy Phlebotomy Performed 500 mls drawn on 06/14/25. Please note that a copy of this report has been sent to the Primary Care Physician, the ordering physician and any physician designated by patient request. US arterial duplex BI w/ KAI (Not yet reviewed by provider) Interpretation: Performing Lab: Notes/Report: [address] [address] Ultrasound Report Signed Patient: Sid Landeros MR#: [id number] : 1960 Acct:[id number] Age/Sex: 64 / M ADM Date: 06/22/25 Loc: .US Attending Dr: Jhony Orr MD Ordering Physician: Jhony Orr MD Date of Service: 06/22/25 Procedure(s): US arterial duplex BI w/ KAI Accession Number(s): [id number] cc: Ashish Huertas MD; Jhony Orr MD Reason for Exam: I73.9 - Peripheral vascular disease, unspecified EXAMINATION: Noninvasive assessment of the bilateral lower extremities with ARTERIAL DUPLEX, ANKLE BRACHIAL INDICES (ABIs), and PULSE VOLUME RECORDINGS (PVRs). CLINICAL INFORMATION: I73.9. Peripheral vascular disease. Left femoropopliteal bypass.. TECHNIQUE: Duplex Doppler techniques with waveform analysis and measurement of velocities in the bilateral common femoral, profunda femoris, superficial femoral, popliteal and tibial arteries were performed. Additionally, ankle pulse volume recordings, ankle pressure measurements and ankle brachial indices were obtained of the lower extremity arterial system bilaterally. The study was performed only at rest. COMPARISON: August 22, 2024. FINDINGS: Calcified plaques. DIRECT DUPLEX DOPPLER FINDINGS: RIGHT LEG: Common femoral artery: 161 cm/s, phasicity: Triphasic. Profunda femoris artery: 71 cm/s, phasicity: Triphasic. Spectral broadening. Superficial femoral artery (proximal): 80 cm/s, phasicity: Triphasic. Spectral broadening. Superficial femoral artery (mid): 45 cm/s, phasicity: Biphasic. Spectral broadening. Superficial femoral artery (distal): 15 cm/s, phasicity: Monophasic. Spectral broadening. Popliteal artery: 11 cm/s, phasicity: Monophasic. Spectral broadening. Posterior tibial artery: 20 cm/s, phasicity: Monophasic. Peroneal artery: 40 cm/s, phasicity: Monophasic. Spectral broadening. Anterior tibial artery: 19 cm/s, phasicity: Monophasic. Spectral broadening. Dorsalis pedis artery: 6 cm/s, phasicity:Monophasic. Spectral broadening. LEFT LEG: Common femoral artery: 222 cm/s, phasicity: [Triphasic. Spectral broadening. Profunda femoris artery: 75 cm/s, phasicity: Biphasic. Popliteal artery: 57 cm/s, phasicity: [Triphasic. Posterior tibial artery: 113 cm/s, phasicity: Biphasic. Peroneal artery: 62 cm/s, phasicity: Biphasic. Anterior tibial artery: 95 cm/s, phasicity: Triphasic. Spectral broadening. Dorsalis pedis artery: 10 cm/s, phasicity: Monophasic. Spectral broadening. Left femoral popliteal bypass: Inflow artery: 222 cm/s and triphasic waveform. Proximal to the anastomosis: 101 cm/s. Triphasic waveform. Proximal bypass graft: 73 cm/s and triphasic waveform. Mid bypass graft: 55 cm/s and biphasic waveform. Distal bypass graft: 64 cm/s and triphasic waveform. Distal anastomosis site: 79 cm/s and triphasic waveform. Outflow artery: 57 cm/s and biphasic waveform. BRACHIAL PRESSURES: Right: 143 Left: 142 ANKLE PRESSURES: Right: PT 102, DP not recorded. Left: PT 136, DP 145 ANKLE-BRACHIAL INDEX: Right: 0.71 Left: 0.99. ANKLE PVR WAVEFORMS: Right: Abnormal Left: Abnormal US/US arterial duplex BI w/ KAI IMPRESSION: Right: Severe inflow, distal superficial femoral artery to dorsalis pedis artery. Left: Severe inflow disease, dorsalis pedis artery. Patency of the left femoropopliteal bypass. KAI Reference: - >1.4 = calcified vessels - 0.9 - 1.4 = normal - no significant arterial disease - 0.7 - 0.89 = mild peripheral arterial disease - 0.51 - 0.69 = moderate peripheral arterial disease - 0.50 = severe peripheral arterial disease - < .30 = critical arterial disease Electronically signed by: Frederick Garcia MD 06/22/2025 03:36 PM EDT RP Dictated By: Frederick Dennison MD Signed By: <Electronically signed by Frederick Kirk MD in OV> 06/22/25 1536 DD/ 1428 TD/TT: 06/22/25 1504 Protein Specialist: [place] [address] Ultrasound Report Signed Patient: Marlo Landeros MR#: [id number] : 1960 Acct:[id number] Age/Sex: 64 / M ADM Date: 06/22/25 Loc: HO.US Attending Dr: Jhony Orr MD Ordering Physician: Jhony Orr MD Date of Service: 06/22/25 Procedure(s): US arterial duplex BI w/ KAI Accession Number(s): [id number] cc: Ashish Huertas MD; Jhony Orr MD Reason for Exam: I73 .9 - Peripheral vascular disease, unspecified EXAMINATION: Noninvasive assessme nt of the bilateral lower extremities with ARTERIAL DUPLEX, ANKLE BRACHI AL INDICES (ABIs), and PULSE VOLUME RECORDINGS (PVRs). CLINICAL INFORMATION: I73.9. Peripheral vascular disease. Left femoropopliteal bypass.. TECHNIQUE: Duplex Doppler techniques with waveform analysis and measurement of velocities in the bilateral common femoral, profunda femoris, superficial femoral, popliteal and tibial arteries were performed. Additionally, ankle pulse volume recordings, ankle pressure measurements and ank le brachial indices were obtained of the lower extremity arterial system bilaterally. The study was performed only at rest. COMPARISON: August 22, 2024. FINDINGS: Calcified plaques. DIRECT DUPLEX DOPPLE R FINDINGS: RIGHT LEG: Common femoral arter y: 161 cm/s, phasicity: Triphasic. Profunda femoris artery: 71 cm/s, phasicity: Triphasic. Spectral broadening. Superficial femoral artery (proximal): 80 cm/s, phasicity: Triphasic. Spectral broadening. Superficial femoral artery (mid): 45 cm/s, phasicity: Biphasic. Spectral broadening. Superficial femoral artery (distal): 15 cm/s, phasicity: Monophasic. Spectral broadening. Popliteal artery: 11 cm/s, phasicity: Monophasic. Spectral broadening. Posterior tibial artery: 20 cm/s, phasicity: Monophasic. Peroneal artery: 40 cm/s, phasicity: Monophasic. Spectral broadening. Anterior tibial tenisha ry: 19 cm/s, phasicity: Monophasic. Spectral broadening. Dorsalis pedis arter y: 6 cm/s, phasicity:Monophasic. Spectral broadening. LEFT LEG: Common femoral arter y: 222 cm/s, phasicity: [Triphasic. Spectral broadening. Profunda femoris artery: 75 cm/s, phasicity: Biphasic. Popliteal artery: 57 cm/s, phasicity: [Triphasic. Posterior tibial artery: 113 cm/s, phasicity: Biphasic. Peroneal artery: 62 cm/s, phasicity: Biphasic. Anterior tibial tenisha ry: 95 cm/s, phasicity: Triphasic. Spectral broadening. Dorsalis pedis arter y: 10 cm/s, phasicity: Monophasic. Spectral broadening. Left femoral poplite al bypass: Inflow artery: 222 c m/s and triphasic waveform. Proximal to the anastomosis: 101 cm/s. Triphasic waveform. Proximal bypass arline t: 73 cm/s and triphasic waveform. Mid bypass graft: 55 cm/s and biphasic waveform. Distal bypass graft: 64 cm/s and triphasic waveform. Distal anastomosis site: 79 cm/s and triphasic waveform. Outflow artery: 57 c m/s and biphasic waveform. BRACHIAL PRESSURES: Right: 143 Left: 142 ANKLE PRESSURES: Right: PT 102, DP no t recorded. Left: PT 136, DP 145 ANKLE-BRACHIAL INDEX: Right: 0.71 Left: 0.99. ANKLE PVR WAVEFORMS: Right: Abnormal Left: Abnormal US/US arterial duplex BI w/ KAI IMPRESSION: Right: Severe inflow , distal superficial femoral artery to dorsalis pedis artery. Left: Severe inflow disease, dorsalis pedis artery. Patency of the left femoropopliteal bypass. AKI Reference: - >1.4 = calcified vessels - 0.9 - 1.4 = normal - no significant arterial disease - 0.7 - 0.89 = mild peripheral arterial disease - 0.51 - 0.69 = moderate peripheral arterial disease - 0.50 = severe peripheral arterial disease - < .30 = critical arterial disease Electronically julio c d by: Frederick Garcia MD 06/22/2025 03:36 PM EDT RP Dictated By: Frederick Yee MD Signed By: <Electronically signed by Frederick Kirk MD in OV> 06/22/25 1536 DD/ 1428 TD/TT: 06/22/25 1504 Protein Specialist: Reason For Referral No Information Medications Medication [...] Status W/U Status Risk Notes Problem Hyperlipidemia (36835371) Hyperlipidemia (E78.5) Active confirmed Comprehensive blood work with a fasting lipid profile is being done periodically. Problem 911996263 Overweight (E66.3) Active confirmed His body mass index is now 23.6 and this problem has resolved. Problem Hypertension (75069408) Hypertension (I10) Active confirmed His blood pressure has been 134/77. No change in his regimen was made. I encouraged him to pursue aggressive sodium restriction. He was given an appointment to come to the office and recheck his blood pressure.He will continue on the losartan given by cardiology. Problem 53226593 Porphyria cutanea tarda (E80.1) Active confirmed The diagnosis o f porphyria was made by a director of grants at [facility]. He affirms that if he goes into direct sunlight. He will experience blisters and skin lesions. He is well versed in how to prevent this and has medications for his skin. Problem 860356393 Other hemochromatosis (E83.118) Active confirmed We will resume the phlebotomy at one-month intervals until he is iron deficient and than every 4 months. Problem 400095159 Acute bronchitis due to other specified organisms (J20.8) Active confirmed He is producing green phlegm and says he is wheezing. The inhaler is helping. He was given a Zithromax and prednisone with a follow-up visit. Problem Benign prostatic hyperplasia (450597732) BPH (benign prostatic hyperplasia) (N40.0) Active confirmed He arises from sleep about once a night to urinate. We have discussed lifestyle modifications he could make to reduce this. Problem 15351914 Tobacco dependence (F17.200) Active confirmed He continues to smoke a package of cigarettes every day. We discussed the health consequences of this. His COPD has been stable and inactive recently. I made him aware of the smoking cessation programs and the local hospitals and this community. Problem COPD - Chronic obstructive pulmonary disease (02080489) COPD (chronic obstructive pulmonary disease) (J44.9) Active [...] lung cancer, COPD, oxygen dependence, etc. Problem 498308847 Ear infection (H66.90) Active confirmed He has complete d a course of antibiotics for the skin inflammation on each year. A repeat culture grew only Tereza. The appearance is much improved. Problem 47468333 Viral syndrome (B34.9) Active confirmed I'm going to speak to him on a daily basis because of the risk of progression of respiratory disease. He has continued to smoke and has COPD. He will continue to use his inhalers as directed. If necessary he will be given oral prednisone and an antibiotic. Problem 51517267 Pilonidal cyst (L05.91) Active confirmed He had an excision and repair of this cyst years ago. It is healed and no longer bothers him. Problem 877892910 Peripheral arterial disease (I73.9) Active confirmed His claudicatio n is stable at 1 block. He recently saw the vascular surgeon. He recently underwent a revision of his left femoral-popliteal bypass graft. The wound is now healed. He experiences some claudication in his right leg and is able to walk one block without stopping to rest. Problem 431012656 Age-related incipient cataract of both eyes (H25.093) Active confirmed He is schedul ed for cataract extraction sequentially later this month. I have taken. A careful history and examined him thoroughly. There is no contraindication to surgery at this time. The benefit is great in the risk is small. He is given medical clearance for both procedures. Problem 807277960 Lumbar radiculopathy, right (M54.16) Active confirmed He continues to have pain that comes from his lower lumbar spine and right paravertebral muscles that radiates into his right buttock. X-rays have shown degenerative disease. The pain is aggravated with walking more than 10 feet and lifting more than 10 pounds. He has been referred to [facility] medicine for physical therapy injections imaging and evaluation for surgery. Problem 88795111 Acute diffuse otitis externa of both ears (H60.313) Active confirmed The left ear wa s primarily involved. The otic canalWas uninvolved. The tympanic membrane was normal. A prescription for Bactrim was given to him. Problem 55044750 Staphylococcus infection (B95.8) Active confirmed This seems [...] Provider Diagnosis Ashish Huertas III, MD [address] [place] [address] [place] [phone] 08/02/2024 Ashish Huertas Infection of pelvis M86.9 ; Peripheral arterial disease I73.9 ; COPD (chronic obstructive pulmonary disease) J44.9 ; Lumbar radiculopathy, right M54.16 ; BPH (benign prostatic hyperplasia) N40.0 and Hypertension I10 Ashish Huertas III, MD [address] [place] [address] [place] [phone] 08/15/2024 Ashish Huertas Infection of pelvis M86.9 ; Hypertension I10 ; BPH (benign prostatic hyperplasia) N40.0 ; COPD (chronic obstructive pulmonary disease) J44.9 ; Peripheral arterial disease I73.9 and Lumbar radiculopathy, right M54.16 Ashish Huertas III, MD [address] [place] [address] [place] [address] 10/28/2024 Ashish Huertas Hypertension I10 ; C OPD (chronic obstructive pulmonary disease) J44.9 ; BPH (benign prostatic hyperplasia) N40.0 ; Peripheral arterial disease I73.9 ; Tobacco dependence F17.200 ; Porphyria cutanea tarda E80.1 ; Lumbar radiculopathy, right M54.16 and Overweight E66.3 Ashish Huertas III, MD [address] [place] [address] [place] [address] 11/15/2024 Ashish Huertas Acute bronchitis due to other specified organisms J20.8 ; COPD (chronic obstructive pulmonary disease) J44.9 ; Tobacco dependence F17.200 ; Lumbar radiculopathy, right M54.16 ; Porphyria cutanea tarda E80.1 ; Hyperlipidemia E78.5 ; Hypertension I10 and Peripheral arterial disease I73.9 Ashish Huertas III, MD [address] [place] [address] [place] [address] 01/10/2025 Ashish Huertas Acute diffuse otitis externa of both ears H60.313 ; Lumbar radiculopathy, right M54.16 ; Hypertension I10 ; BPH (benign prostatic hyperplasia) N40.0 ; Peripheral arterial disease I73.9 ; Tobacco dependence F17.200 ; Porphyria cutanea tarda E80.1 and COPD (chronic obstructive pulmonary disease) J44.9 Ashish Huertas III, MD [address] [place] [address] [place] [address] 01/18/2025 Ashish Huertas Acute bronchitis due to other specified organisms J20.8 ; Hypertension I10 ; BPH (benign prostatic hyperplasia) N40.0 ; COPD (chronic obstructive pulmonary disease) J44.9 ; Peripheral arterial disease I73.9 and Lumbar radiculopathy, right M54.16 Ashish Huertas III, MD [address] [place] [address] [place] [address] 01/23/2025 Ashish Huertas Viral syndrome B34.9 ; COPD (chronic obstructive pulmonary disease) J44.9 ; Hypertension I10 ; BPH (benign prostatic hyperplasia) N40.0 ; Peripheral arterial disease I73.9 ; Tobacco dependence F17.200 ; Porphyria cutanea tarda E80.1 and Lumbar radiculopathy, right M54.16 Ashish Huertas III, MD [address] [place] [address] [place] [address] 02/14/2025 Ashish Huertas Staphylococcus infec tion B95.8 ; Hypertension I10 ; BPH (benign prostatic hyperplasia) N40.0 ; COPD (chronic obstructive pulmonary disease) J44.9 ; Peripheral arterial disease I73.9 ; Lumbar radiculopathy, right M54.16 ; Tobacco dependence F17.200 and Porphyria cutanea tarda E80.1 Ashish Huertas III, MD [address] [place] [address] [place] [address] 02/28/2025 Ashish Huertas BPH (benign prostati c hyperplasia) N40.0 ; Age-related incipient cataract of both eyes H25.093 ; Overweight E66.3 ; Hyperlipidemia E78.5 ; Ear infection H66.90 and COPD (chronic obstructive pulmonary disease) J44.9 Ashish Huertas III, MD [address] [place] [address] [place] [address] 06/07/2025 Ashish Huertas Tobacco dependence F17.200 ; Other hemochromatosis E83.118 ; COPD (chronic obstructive pulmonary disease) J44.9 ; Hypertension I10 ; BPH (benign prostatic hyperplasia) N40.0 and Pilonidal cyst L05.91 Ashish Huertas III, MD [address] [place] [address] [place] [address] 07/01/2024 Ashish Huertas III, MD [address] [place] [address] [place] [address] 10/04/2024 Ashish Huertas Infection of pelvis M86.9 Ashish Huertas III, MD [address] [place] [address] [place] [address] 11/21/2024 Ashish Huertas III, MD [address] [place] [address] [place] [address] 11/21/2024 Ashish Huertas III, MD [address] [place] [address] [place] [address] 12/19/2024 Ashish Huertas III, MD [address] [place] [address] [place] [address] 01/24/2025 Ashish Huertas III, MD [address] [place] [address] [place] [address] 04/07/2025 Ashish Huertas Assessments Encounter Date Diagnosis [...] 10 pounds. He has been referred to [facility] in [facility] for physical therapy injections imaging [...] 10 pounds. He has been referred to [facility] in [facility] for physical therapy injections imaging [...] of porphyria was made by a director of grants at [facility]. He affirms that [...] 10 pounds. He has been referred to [facility] in [facility] and sports [facility] for physical therapy injections imaging and evaluation for surgery. 10/28/2024 Porphyria cutanea tarda (ICD-10 - E80.1) The diagnosis of porphyria was made by a director of grants at [facility]. He affirms that [...] 10 pounds. He has been referred to [facility] in [facility] spine [facility] for physical therapy injections imaging and [...] 10 pounds. He has been referred to [facility] in [facility] spine [facility] for physical therapy injections imaging [...] of porphyria was made by a director of grants at [facility]. He affirms that if he goes into direct sunlight. He will experience blisters and skin lesions. He is well versed in how to prevent this and has medications for his skin. 01/23/2025 Porphyria cutanea tarda (ICD-10 - E80.1) The diagnosis of porphyria was made by a director of grants at [facility]. He affirms that [...] of porphyria was made by a director of grants at [facility]. He affirms that [...] 11/27/2023 Routine Culture 02/09/2024 Routine Culture 01/10/2025 US arterial duplex BI w/ KAI 06/22/2025 Next Appt Details Provider Name:Ashish Huertas , 09/06/2025 10:30:00 AM, [address] [place] [address] [address] [place], [place], [address], Provider Name:Ashish Troy Aleksandar , 10/31/2025 02:00:00 PM, [address] [place] [address] [address], [place], [address], Insurance Providers Payer Name Payer Address Payer Phone Subscriber Number Group Number Insured Name Patient Relationship to Insured Coverage Start Date Coverage End Date [facility] [address] [place], [place] [id number] [phone] [id number] Sid Landeros Self - patient is the insured [address] [place] [address] [id number] Sid Landeros Self - patient is the insured Medical (General) History Medical History History ICD Code COPD (chronic obstructive pulmonary dise ase) J44.9 Hypertension I10 Erectile dysfunction Peripheral vascular disease Environmental allergies History of repaired pilonidal cyst Excised lipoma, left triceps, age 8 Porphyria cutanea [place], Dr. Brady, [facility] Tobacco dependence Covid19 infection 2021 Lumbar [...] Date(Month/Year) No history Arterial Bipass 05/2022 Colonoscopy, [facility], Dr. Ramos Fracture of 2 fingers Repair of pilonidal cyst Excision of lipoma, left triceps, age 8 [place]ophagogastricduod[place] [place] History Reason Date(Month/Year)
[2025-06-27 13:00] VITALS: BMI 22.0
[2025-06-27 13:02] VITALS: BMI 21.7
--- NOTE | 2025-06-27 15:03 | HO.ANESPROP2 ---
Documented by User: Makayla Baker NP 06/28/25 12:16 HPI - Anesthesia Eval Consult details Narrative: 64 yr old male for Cholecystectomy Laparoscopic, possible open Pulmonary preop visit 06/15/[address] Lino: pt reported doing well, could walk around, up to 2 blocks without getting SOB. Minimal cough, no wheezing, no recent URI. Home sleep study neg for TEA, but + low sats 89-90%. *Deemed poor surgical risk, stated however his obstructive lung disease is fairly stable at this time. He can safely undergo procedure. Would need to be closely monitored for hypoxemia; would require O2 supp to keep O2 above 90%. Cardiac preop visit 06/20/[address] Fletcher: No documented CAD. Deemed intermediate cardiac risk for planned procedure. PVD: h/o femoropopliteal bypass, on plavix, ASA Still smoking a few to 15-20 cigarettes daily PMFSH Active Problems Active Problems: All Active Problems (Updated 06/20/25 @ 16:23 by Carlos A Fletcher MD) Gallbladder polyp (Acute) Personal history of colonic polyps (Acute) Hemorrhoids (Acute) Diverticulosis of colon (Acute) PVD (peripheral vascular disease) (Acute) Preoperative cardiovascular examination (Acute) Tingling of left upper extremity (Acute) Varicose veins of right lower extremity with inflammation (Acute) Erectile dysfunction (Acute) COPD (chronic obstructive pulmonary disease) (Acute) Nocturnal hypoxemia (Acute) Snoring (Acute) Excessive daytime sleepiness (Acute) Abnormal LFTs (Acute) Atherosclerotic cardiovascular disease (Acute) Bilateral carotid artery stenosis (Acute) HTN (hypertension) (Acute) Hyperlipidemia (Acute) PAD (peripheral artery disease) (Acute) Hereditary hemochromatosis (Acute) Allergic rhinitis (Acute) Nicotine dependence, cigarettes, uncomplicated (Acute) GERD (gastroesophageal reflux disease) (Acute) Tubular adenoma of colon (Acute) Porphyria cutanea tarda (Acute) Past Medical History Medical History Nocturnal hypoxemia Snoring Excessive daytime sleepiness Bronchitis Abnormal LFTs ETOH abuse Hereditary hemochromatosis Atherosclerotic cardiovascular disease Bilateral carotid artery stenosis PAD (peripheral artery disease) Murmur HTN (hypertension) Hyperlipidemia COPD (chronic obstructive pulmonary disease) SOB (shortness of breath) Allergic rhinitis Nicotine dependence, cigarettes, uncomplicated GERD (gastroesophageal reflux disease) Tubular adenoma of colon Porphyria cutanea tarda Arthritis Family History Family History Father Diabetes Stroke Hypertension Mother Chronic mental illness Family/Other FH: mental illness Family history of problems with anesthesia: No Surgical History Surgical History History of femoropopliteal bypass History of femoropopliteal bypass (11/02/23) S/P angiogram of extremity History of colonoscopy History of esophagogastroduodenoscopy History of lipoma History of skin graft History of removal of cyst History of foot surgery History of Problems with Anesthesia: No Social History Social History Household Members: Spouse Housing: House Are you a primary manager long term care to a significant other at home: No Do you presently have visiting nurse or other home services: No Alcohol intake: current Alcohol intake frequency: a few times a month Alcohol type: beer Comment: residual pain in left foot, but much improved and tolerable per patient. Patient Tobacco Use Status: Current everyday Tobacco user Tobacco use type: Cigarette Cigarette Packs Per Day: 1 Cigarettes Per Day: 20.0 Years Smoked: 35 e-Cigarette/Vaping Use: Never Used Second Hand Smoke Exposure: No Use of substances other than those prescribed or required for medical reasons: No Have you been hit, kicked, punched, or otherwise hurt by someone within the past year? 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 occupational exposures/hazards: No Cognitive needs: No Hearing needs: No Vision needs: Yes Meds Allergies Allergy/AdvReac Type Severity Reaction Status Date / Time doxycycline Allergy Intermediate Hives Verified 06/29/25 09:57 nabumetone AdvReac Mild green Verified 06/29/25 09:57 stools Exam Height,Weight and Vital Signs: Height 5 ft 10 in Weight 68.492 kg Narrative Narrative: EKG 05/2025 Sinus rhythm, rate 96 Righward axis Pulmonary disease pattern Normal MN, corrected QT Assessment and Plan Final Anesthetic Review Family History of Problems with Anesthesia: No History of Problems with Anesthesia: No Documented by User: Danis Puri MD 06/29/25 14:01 [facility] Past Medical History Medical History Nocturnal hypoxemia Snoring Excessive daytime sleepiness Bronchitis Abnormal LFTs ETOH abuse Hereditary hemochromatosis Atherosclerotic cardiovascular disease Bilateral carotid artery stenosis PAD (peripheral artery disease) Murmur HTN (hypertension) Hyperlipidemia COPD (chronic obstructive pulmonary disease) SOB (shortness of breath) Allergic rhinitis Nicotine dependence, cigarettes, uncomplicated GERD (gastroesophageal reflux disease) Tubular adenoma of colon Porphyria cutanea tarda Arthritis Family History Family History Father Diabetes Stroke Hypertension Mother Chronic mental illness Family/Other FH: mental illness Surgical History Surgical History History of femoropopliteal bypass History of femoropopliteal bypass (11/02/23) S/P angiogram of extremity History of colonoscopy History of esophagogastroduodenoscopy History of lipoma History of skin graft History of removal of cyst History of foot surgery Social History Social History Household Members: Spouse Housing: House Are you a primary manager long term care to a significant other at home: No Do you presently have visiting nurse or other home services: No Alcohol intake: current Alcohol intake frequency: a few times a month Alcohol type: beer Comment: residual pain in left foot, but much improved and tolerable per patient. Patient Tobacco Use Status: Current everyday Tobacco user Tobacco use type: Cigarette Cigarette Packs Per Day: 1 Cigarettes Per Day: 20.0 Years Smoked: 35 e-Cigarette/Vaping Use: Never Used Second Hand Smoke Exposure: No Use of substances other than those prescribed or required for medical reasons: No Have you been hit, kicked, punched, or otherwise hurt by someone within the past year? 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 occupational exposures/hazards: No Cognitive needs: No Hearing needs: No Vision needs: Yes Meds Allergies Allergy/AdvReac Type Severity Reaction Status Date / Time doxycycline Allergy Intermediate Hives Verified 06/29/25 09:57 nabumetone AdvReac Mild green Verified 06/29/25 09:57 stools Exam Airway Mallampati Class: II TM Dist: >3cm Neck ROM: Full Loose/Missing/Broken Teeth: No Heart: ok Lungs: ok Assessment and Plan Assessment Anesthesia Assessment: Anesthesia Plan Discussed and Chart Reviewed Final Anesthetic Review NPO: Yes ASA Class: III Final Preanesthetic Review: No Changes in Pt Med Stat, Meds/Allgs Chart Reviewed, Consent Obtained/Reviewed and Anes Risks/Benef Reviewed Patient Risk: High Procedure Risk: Intermediate Anesthetic Plan Anesthetic Plan: GA and Agree w/ Assess. and Plan Disposition: Standard PACU
[2025-06-29] VITALS (10 sets, daily range): BP systolic 105–129; BP diastolic 58–66; PULSE 70–87; RESP 12–20; TEMP 36.6–36.8; O2SAT 92–96
[2025-06-29] MEDS: Lactated Ringers 1,000 ML 100 ML IVCONT (10:12)
[2025-06-29] MEDS: Albuterol Sulfate (0.083%) 2.5 MG/3 ML VIAL.NEB INHALE (10:31)
[2025-06-29 11:44] LABS: Anion Gap 12 (12-20); Carbon Dioxide 25 mmol/L (22-29); Chloride 103 mmol/L (96-108); Potassium 3.6 mmol/L (3.3-5.1); Sodium 136 mmol/L (135-145)
--- NOTE | 2025-06-29 14:04 | MHC.SHP ---
Pre-Procedural Eval Section A - 24 Hr Update-Section A only Date of Service: 06/29/25 The patient is an INPATIENT: No Changes since office visit: Yes Patient answered all questions; No Cold of Flu in the past 2 weeks, No New Medical Problems and No Changes in Medication The patient has been examined within 24 hours of the surgical procedure. The History & Physical has been completed within 30 days and I have reviewed it.: Yes Section B - Complete if H&P > 30 days Chief Complaint: Cholesterolosis of gallbladder Allergies: Allergies Allergy/AdvReac Type Severity Reaction Status Date / Time doxycycline Allergy Intermediate Hives Verified 06/29/25 09:57 nabumetone AdvReac Mild green Verified 06/29/25 09:57 stools Plan Diagnosis/Plan: Unchanged I have reviewed the history and physical and performed a pertinent physical examination on my patient. No changes have occurred unless specified. Time Spent With Patient Time: Total time managing care of this patient today ____ minutes.
[2025-06-29] MEDS: cefoTEtan disodium 2 GM VIAL IVPUSH (14:35)
--- NOTE | 2025-06-29 15:25 | P.OP_ITS ---
Operative Note Operative Note Date of Service: 06/29/25 Narrative: Preoperative diagnosis: Gallbladder polyp Postoperative diagnosis: Same Procedure: Laparoscopic cholecystectomy Surgeon: Henry Packer MD Air Traffic Instructor:Sid Almonte PA-C, TOMEKA Henning Anesthesia: General endotracheal Indications for procedure: 64-year-old male patient presenting with a greater than 9 mm polyp of the gallbladder. Patient presents for elective laparoscopic cholecystectomy Operative findings: Normal-appearing gallbladder, fatty liver Specimen: gallbladder Estimated blood loss: 2 mL Complications: None Procedure details: Patient was brought to the OR and placed in a supine po sition. After administering general anesthesia the patient's abdomen was prepped with ChloraPrep and draped in a sterile fashion. A surgical time-out was called the consent confirmed. Patient received preoperative antibiotics and Venodyne boots were in place. Local anesthesia consisting of 0.5% Sensorcaine without epinephrine was infiltrated in a periumbilical region. A 5 mm incision was made above the umbilicus in a transverse fashion. The Veress needle was then inserted while elevating abdominal cavity with towel clips. After positive drop test the abdomen was insufflated to a pressure of 15 mm of mercury. The Veress needle was then removed and a 5 mm trocar inserted. The camera was inserted in the abdomen explored. A 12 mm trocar was then placed in the epigastrium. Two 5 mm trocars placed in the right upper quadrant by the retail sales assistant. The patient was placed in reverse Trendelenburg positioning and rotated to the left. The gallbladder was grasped with the fundus and retracted cephalad by the retail sales assistant. The infundibulum was then grasped and retracted away from the liver bed, also by the retail sales assistant. The Dolphin dissected was then used by the surgeon to dissect the peritoneum off the infundibulum to reveal the junction with the cystic duct. Cystic artery was noted slightly medial and posterior to the cystic duct. After obtaining a critical view the cystic duct was doubly clipped and divided. The cystic artery was then doubly clipped and divided. The gallbladder was then dissected off the liver bed using electrocautery with an L hook. Hemostasis was assured all times using the electrocautery. When the gallbladder is completely dissected off the liver bed was placed in an Endo-Catch bag and brought out through the epigastric incision. The gallbladder was sent to pathology for further examination. The abdomen was then re-examined. The liver bed was irrigated and suctioned dry. No bleeding or bile leak could be identified. CO2 was then evacuated and all trocars removed. Fascia was closed at the epigastric incision using a ebnhog-eo-jtfru 0 Polysorb suture. Skin was closed in all incisions using a subcuticular 4 0 Polysorb suture by both the surgeon and retail sales assistant. Sterile dressings consisting of Steri-Strips, 2 x 2 gauze, and Tegaderm were then applied. The patient tolerated the procedure well. Sponge instrument and needle counts reported as correct. The patient was transferred to PACU in stable condition.
[2025-06-29] MEDS: oxyCODONE HCl Immed Release 5 MG TABLET PO (17:11)
== END 2025-06-29 17:23 | disposition home or self-care (01) ==
PROVIDERS: Nurse Practitioner; PCP Internal Medicine Medical Oncology; Visit Provider Surgery
PROC: 0FT44ZZ Resection of Gallbladder, Percutaneous Endoscopic Approach (ICD-10-PCS; CPT 47562; principal; 2025-06-29 11:50)
DX: K81.1 Chronic cholecystitis (principal); I10 Essential (primary) hypertension; I25.10 Atherosclerotic heart disease of native coronary artery without angina pectoris; I73.9 Peripheral vascular disease, unspecified; J41.0 Simple chronic bronchitis; G47.34 Idiopathic sleep related nonobstructive alveolar hypoventilation; F17.210 Nicotine dependence, cigarettes, uncomplicated; Z79.82 Long term (current) use of aspirin; Z79.899 Other long term (current) drug therapy; Z88.1 Allergy status to other antibiotic agents
CPT/HCPCS: 47562; 36415; 80051; 88304; 94640; J0525; J1100; J2003; J2405; J2704; J3010

== ENCOUNTER → 2025-06-29 09:39 | Outpatient (BNV) | payer BC, OTHER, SELFPAY | PROVIDERS: PCP Internal Medicine Medical Oncology; Visit Provider Surgery | DX: K82.8 Other specified diseases of gallbladder (principal) | CPT/HCPCS: 47562 ==

== ENCOUNTER 2025-07-06 09:56 | Outpatient (AMB) | payer BC, OTHER, SELFPAY ==
--- NOTE | 2025-07-06 10:03 | A.OFFVIS_ITS ---
Vital Signs 07/06/25 10:09 Weight 149 lb BP 110/57 L Blood Pressure Location Lt brachial Position Sitting Pulse 91 Intake Visit Reasons: s/p lap carina Intake Note: Patient here s/p Laparoscopic cholecystectomy. Patient c/o: soreness at surgical site. Taking rx pain med as needed. reports incision healing well. Keeping area covered w/gauze and bandage. 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 Landeros presents for wound check following a laparoscopic cholecystectomy on 06/29/[address] Packer for a gallbladder polyp. He tolerated the procedure well. He took oxycodone every 6 hours for the first few days for incisional pain. He is now taking it occasionally if needed, usually at night. He is tolerating a solid diet but reports his appetite is a little less than normal. He is moving his bowels daily. He has no concerns but is asking when he can resume his yard work. [facility] Medical History Nocturnal hypoxemia Snoring Excessive daytime sleepiness Bronchitis Abnormal LFTs ETOH abuse Hereditary hemochromatosis Atherosclerotic cardiovascular disease Bilateral carotid artery stenosis PAD (peripheral artery disease) Murmur HTN (hypertension) Hyperlipidemia COPD (chronic obstructive pulmonary disease) SOB (shortness of breath) Allergic rhinitis Nicotine dependence, cigarettes, uncomplicated GERD (gastroesophageal reflux disease) Tubular adenoma of colon Porphyria cutanea tarda Arthritis Surgical History (Updated 07/06/25 @ 10:32 by Deepa Healy PA-C) Hx laparoscopic cholecystectomy (06/29/25) History of femoropopliteal bypass History of femoropopliteal bypass (11/02/23) S/P angiogram of extremity History of colonoscopy History of esophagogastroduodenoscopy History of lipoma History of skin graft History of removal of cyst History of foot surgery Family History Father Diabetes Stroke Hypertension Mother Chronic mental illness Family/Other FH: mental illness Social History Household Members: Spouse Housing: House Are you a primary housekeeper child care to a significant other at home: No Do you presently have visiting nurse or other home services: No 75 years or older and lives alone: No Alcohol intake: current Alcohol intake frequency: a few times a month Alcohol type: beer 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 occupational exposures/hazards: No Cognitive needs: No Hearing needs: No Vision needs: Yes Review of Systems Const Denies fever(s) Card Denies dyspnea Resp Denies dyspnea GI Reports as per HPI Skin/Breast Denies rash and Denies jaundice Physical Exam Vital Signs: Last Vital Signs Pulse 91 07/06/25 10:09 BP 110/57 L 07/06/25 10:09 Const General: comfortable, no acute distress and alert Orientation/consciousness: patient oriented x3 Resp Effort & Inspection: normal respiratory effort GI Other: Abdomen soft, nondistended steri strips removed from incision sites, all well healed except the RUQ which has some separation and another steri was applied, no erythema, mild yellowing ecchymosis of epigastric site Palpation (GI): nontender and no guarding Skin General skin exam: no rashes or lesions noted and no jaundice Neuro General: patient oriented x3 and moves all extremities Results Reviewed Results Reviewed: Gallbladder, cholecystectomy: Chronic cholecystitis Assessment & Plan Assessment & Plan (1) S/P laparoscopic cholecystectomy: Code(s): Z90.49 - Acquired absence of other specified parts of digestive tract Category: Surgical Plan 64 year old male s/p laparoscopic cholecystectomy on 06/29/[address] Packer for a gallbladder polyp. He tolerated the procedure well. His abdomen is benign and incision sites area clean appearing. Pathology showed only chronic cholecystitis and this was reviewed with the patient. He was instructed to continue no heavy lifting or strenuous activities for 3 more weeks. He is doing well post op and can follow up as needed if he develops concerns. Patient and understand and agree with plan Coding Level of Care Code Global (17243) Diagnoses S/P laparoscopic cholecystectomy Z90.49
[2025-07-06 10:09] VITALS: BP 110/57; PULSE 91
== END 2025-07-06 10:25 | disposition home or self-care (01) ==
LOC: HO.HGS 09:57
PROVIDERS: PCP Internal Medicine Medical Oncology; Visit Provider Physician Assistant Surgical
DX: Z90.49 Acquired absence of other specified parts of digestive tract (principal)
CPT/HCPCS: 99024

== ENCOUNTER 2025-07-25 10:14 | Outpatient (AMB) | payer BC, OTHER, SELFPAY ==
--- OUTSIDE RECORDS SUMMARY | 2024-12-19 10:40 | XMS_ITS ---
Author Organization Ashish Huertas III, MD Address [address] [place] [address] [place] [address] Care Team Providers Care Bullard Machine Operator Name Role Phone Dr. Ashish Huertas III Primary Care Provider [phone] REASON FOR VISIT Message Social History Sex Assigned At : Social History Observation Description Sex Assigned At Male Encounters Encounter Location Date Provider Diagnosis Ashish Huertas III, MD [address] [place] [address] [place] [phone] 12/19/2024 Ashish Huertas Plan Of Treatment Next Appt Details Provider Name:Ashish Huertas , 09/06/2025 10:30:00 AM, [address] [place] [address] [place], [address], Provider Name:Ashish Huertas , 10/31/2025 02:00:00 PM, [address] [place] [address] [place], [address], Progress Notes * Sid LANDEROS MDOB: 2 (64 yo M)Acc No.[id number]:12/19/2024 Patient: Sid COBOS :1960 A ge:64 Y S ex:Male Address:[address] [place], [address] * true * Date: Generated for Printi ng/Faxing/eTransmitting on: 12:30 PM EDT
--- OUTSIDE RECORDS SUMMARY | 2025-01-10 07:15 | XMS_ITS ---
Author Organization Ashish Huertas III, MD Address [address] [place] [address] Care Team Providers Care Optical Fabrication Technician Name Role Phone Dr. Ashish Huertas III Primary Care Provider Allergies Allergen (clinical drug ingredient) Drug/Non Drug Allergy documented on EMR Reaction Allergy Type Onset Date Status doxycycline Doxycycline Unknown Drug Allergy Act henrry REASON FOR VISIT Bilateral ear pain for one week, COPD, BPH, peripheral arterial disease, Porphyria, Lumbar radiculopathy, Tobacco dependence Medications Medication SIG (Take, Route, Frequency, Duration) Notes Start Date End Date Status Cefuroxime Axetil 500 MG 1 tablet Orally every 12 hrs for 7 days 01/10/2025 01/24/2025 Active Sildenafil Citrate 100 MG 1 tablet as ne eded Orally Once a day 10/28/2024 Active Clopidogrel Bisulfate 75 MG 1 tablet Orally Once a day 08/02/2024 Active Ibuprofen 800 MG Oral Act henrry Mupirocin 2 % 1 application Machine Clothing Worker ally Twice a day 11/20/2023 Active Symbicort 160-4.5 MCG/ACT 2 puffs Inhala tion Twice a day Active Combivent Respimat 20-100 MCG/ACT 1 puff as needed Inhalation every 6 hrs Active amLODIPine Besylate 10 MG as directed Or ally Once a day Active Pantoprazole Sodium 40 MG one tablet miguel angel ly Orally Once a day 10/04/2024 Active traMADol HCl 50 MG 1 tablet Orally ever y 6 hours prn back pain 12/23/2022 Active Varenicline Tartrate (Starter) 0.5 MG X 11 & 1 MG X 42 as directed Orally as directed 01/30/2023 Active Rosuvastatin Calcium 20 MG 1 tablet Oral ly Once a day Active Losartan Potassium 25 MG 1 tablet Orally Once a day 01/10/2025 Active Social History Tobacco Use: Social History Observation Description Date Details (start date - stop date) Current Smoker NA - NA Sex Assigned At : Social History Observation Description Sex Assigned At Male Tobacco Control (Standard) Question Answer Notes Tobacco use: Current smoker How often do you smoke cigarettes? Every day How many cigarettes a day do you smoke? 6-10 How soon after you wake up d o you smoke your first cigarette? Within 5 minutes Are you interested in quitting? Ready to quit Additional Findings: Tobacco user Light cigarett e smoker (1-9 cigs/day) Vital Signs Temperature 99.0 degrees Fahrenheit 01/11/20 25 Blood pressure systolic 134 mm Hg 01/11/20 25 Blood pressure diastolic 77 mm Hg 025 Heart Rate 94 /min 01/10/2025 Height 70 in 01/10/2025 Weight 172 lbs 01/10/2025 BMI 24.68 kg/m2 01/10/2025 Encounters Encounter Location Date Provider Diagnosis Ashish Huertas III, MD [address] [place] [address] [place] [address] 01/10/2025 Ashish Huertas Acute diffuse otitis externa of both ears H60.313 ; Lumbar radiculopathy, right M54.16 ; Hypertension I10 ; BPH (benign prostatic hyperplasia) N40.0 ; Peripheral arterial disease I73.9 ; Tobacco dependence F17.200 ; Porphyria cutanea tarda E80.1 and COPD (chronic obstructive pulmonary disease) J44.9 Assessments Encounter Date Diagnosis (ICD Code) Assessment Notes Treatment Notes Treatment Clinical Notes 01/10/2025 Acute diffuse otitis externa of both ears (ICD-10 - H60.313) The left ear was primarily involved. The otic canalWas uninvolved. The tympanic membrane was normal. A prescription for Bactrim was given to him. 01/10/2025 Lumbar radiculopathy, right (ICD-10 - M54.16) He continues to have pain that comes from his lower lumbar spine and right paravertebral muscles that radiates into his right buttock. X-rays have shown degenerative disease. The pain is aggravated with walking more than 10 feet and lifting more than 10 pounds. He has been referred to [facility] medicine for physical therapy injections imaging and evaluation for surgery. 01/10/2025 Hypertension (ICD-10 - I10) His blood pressure has been 134/77. No change in his regimen was made. I encouraged him to pursue aggressive sodium restriction. He was given an appointment to come to the office and recheck his blood pressure.He will continue on the losartan given by cardiology. 01/10/2025 BPH (benign prostatic hyperplasia) (ICD-10 - N40.0) He rises from sleep usually once a night occasionally twice. We have discussed lifestyle modifications he can make to reduce nocturia. 01/10/2025 Peripheral arterial disease (ICD-10 - I73.9) His claudication is stable at 1 block. He recently saw the vascular surgeon. He recently underwent a revision of his left femoral-popliteal bypass graft. The wound is now healed. He experiences some claudication in his right leg and is able to walk one block without stopping to rest. 01/10/2025 Tobacco dependence (ICD-10 - F17.200) He continues to smoke a package of cigarettes every day. We discussed the health consequences of this. His COPD has been stable and inactive recently. I made him aware of the smoking cessation programs and the local hospitals and this community. 01/10/2025 Porphyria cutanea tarda (ICD-10 - E80.1) The diagnosis of porphyria was made by a bead wire taper at [facility]. He affirms that if he goes into direct sunlight. He will experience blisters and skin lesions. He is well versed in how to prevent this and has medications for his skin. 01/10/2025 COPD (chronic obstructive pulmonary disease) (ICD-10 - [...] include lung cancer, COPD, oxygen dependence, etc. Plan Of Treatment Medication Medication Name Sig Start Date Stop Date Notes Cefuroxime Axetil 500 MG 1 tablet Orally every 12 hrs for 7 days 01/10/2025 01/24/2025 Sildenafil Citrate 100 MG 1 tablet as ne eded Orally Once a day 10/28/2024 Clopidogrel Bisulfate 75 MG 1 tablet Orally Once a day 01/2024 Ibuprofen 800 MG Oral Mupirocin 2 % 1 application Machine Clothing Worker ally Twice a day 11/20/2023 Symbicort 160-4.5 MCG/ACT 2 puffs Inhala tion Twice a day Combivent Respimat 20-100 MCG/ACT 1 puff as needed Inhalation every 6 hrs amLODIPine Besylate 10 MG as directed Or ally Once a day Pantoprazole Sodium 40 MG one tablet miguel angel ly Orally Once a day 10/04/2024 traMADol HCl 50 MG 1 tablet Orally ever y 6 hours prn back pain 12/23/2022 Varenicline Tartrate (Starter) 0.5 MG X 11 & 1 MG X 42 as directed Orally as directed 01/30/2023 Rosuvastatin Calcium 20 MG 1 tablet Orally Once a day Losartan Potassium 25 MG 1 tablet Orally Once a day 2024 Pending Test Test Name Order Date Routine Culture 01/10/2025 Next Appt Details Follow Up: 1 Week, Reason: T [facility] Provider Name:Ashish Huertas , 09/06/2025 10:30:00 AM, [address] [place] [address] [address], [place], [address], Provider Name:Ashish Huertas , 10/31/2025 02:00:00 PM, [address] [place] [address] [address], [place], [id number], Progress Notes * Sid LANDEROS MDOB: 2 (64 yo M)Acc No.[id number]:01/10/2025 Progress Notes Patient: Logan AUGUSTINSid Provider: Frantz Huertas MD :1960 A ge:64 Y S ex:Male Date:01/10/2025 Address:[address] [place] [address] [place], [id number] Subjective: * Chief Complaints: * B ilateral ear pain for one weekCOPDBPHPeripheral arterial diseasePorphyriaLumbar radiculopathyTobacco dependence * HPI: C OVID-19 Screening: H e returns to the office complaining of bilateral clear discharge from the ears as well as pruritus of the ear canals encrusting in the morning. His hearing acuity is intact. He has no difficulty breathing unless he has prolonged exertion. He is beginning to experience seasonal allergies. He reports nocturia once a night. He saw his bank sales and service manager yesterday was given a prescription for medication for hypertension. He has been tolerating it well. He denies any recent claudication. Examination showed otitis externa. Questions H ave you had any new onset fever, chills, cough, congestion, sore throat, shortness of breath, muscle aches? N o * ROS: G eneral/Constitutional: pain o nly normal aches and pains. C hills d enies.?Fatigue a dmits. F ever d enies. E NT: Decreased hearing d enies. R espiratory: Cough d enies. C ardiovascular: Chest pain with exertion d enies. D yspnea on exertion?denies. S hortness of breath w ith exertion. G astrointestinal: Constipation o ccasional. D ecreased appetite d enies. D iarrhea d enies. H eartburn d enies. N ausea d enies. R ectal bleeding d enies. V omiting d enies. H ematology: bruising d enies. p etechiae d enies. S wollen glands n one have been noted. G enitourinary: Frequent urination o nce a night. M usculoskeletal: Muscle aches d enies. P ainful joints d enies. S ciatica d enies. W eakness d enies. S kin: Itching d enies. R flako d enies. S kin lesion(s)?denies. N eurologic: Difficulty speaking d enies. D izziness d enies.?Headache d enies. L ow back pain d enies. P sychiatric: Depressed mood d enies. * Medical History: * Surgical History: F emoral -popliteal arterial bypass [place] [place] 05/2022Esophagogastricduodoscopy Excision of lipoma, left triceps, age 8 Repair of pilonidal cyst Fracture of 2 fingers Colonoscopy, [facility], Dr. Ramos Arterial Bipass 05/2022 * Hospitalization/Major Diagno stic Procedure: N o history * Family History: F ather: 72 yrs, diagnosed with DM, CVD. M other: 83 yrs. S iblings: alive, ovarian cancer. 2 sister(s) . 1 son(s) - healthy. . He is not aware of any family history of mental illness or substance abuse. His oldest sister has ovarian cancer. * Social History: T obacco Use: T obacco Control (Standard) T obacco use: C urrent smoker H ow often do you smoke cigarettes? E very day H ow many cigarettes a day do you smoke? 6 -10 H ow soon after you wake up do you smoke your first cigarette? W ithin 5 minutes A re you interested in quitting? R roxanne to quit A dditional Findings: Tobacco user L ight cigarette smoker (1-9 cigs/day) S moking - Reduced to 3 cigarettes a day {'Smoking': '3 cigarettes a day'} The patient is a smoker but is trying to quit. He has reduced his smoking significantly. * Medications: T akingLosartan Potassium 25 MG Tablet 1 tablet Orally Once a [...] Aerosol 2 puffs Inhalation Twice a day Mupirocin 2 % Ointment 1 application Externally Twice a day Clopidogrel Bisulfate 75 MG Tablet 1 tablet Orally Once a day Sildenafil Citrate 100 MG Tablet 1 tablet as needed Orally Once a day Taking Losartan Potassium 25 MG Tablet 1 tablet Orally Once a [...] 2 puffs Inhalation Twice a day Taking Mupirocin 2 % Ointment 1 application Externally Twice a day Taking Clopidogrel Bisulfate 75 MG Tablet 1 tablet Orally Once a day Taking Sildenafil Citrate 100 MG Tablet 1 tablet as needed Orally Once a day DiscontinuedAzithromycin 250 MG Tablet take the tablets by mouth Orally 2 Tablets on the first day, one tablet the rest of the days Pantoprazole Sodium 40 MG Tablet Delayed Release one tablet daily Orally Once a day Sildenafil Citrate 100 MG Tablet 1 tablet Orally Once a day Medication List reviewed and reconciled with the patientDiscontinued Azithromycin 250 MG Tablet take the tablets by mouth Orally 2 Tablets on the first day, one tablet the rest of the days Discontinued Pantoprazole Sodium 40 MG Tablet Delayed Release one tablet daily Orally Once a day Discontinued Sildenafil Citrate 100 MG Tablet 1 tablet Orally Once a day Medication List reviewed and reconciled with the patient * Allergies: D oxycyclineno[Allergies Verified] Objective: * Vitals: H t: 70, Wt: 172, BMI:24.68, BP: 134/77, HR: 94, Temp: 99.0, Ht-cm: 177.8, Wt-k.02. * Examination: G eneral Examination: GENERAL APPEARANCE: p leasant, well nourished, well developed, in no acute distress, calm and relaxed, man. HEAD: a traumatic, normocephalic. EYES: e ros, perrla, anicteric, conjugate. EARS: H earing is intact, mild to moderate skin scaling and erythema external canals mild cerumen tympanic membranes normal. NOSE: s eptum intact. ORAL CAVITY: n ormal, unremarkable. NECK/THYROID: n o jugular venous distention, no carotid bruit, thyroid normal. LYMPH NODES: n o enlarged lymph nodes,spleen normal. SKIN: n o suspicious lesions, anicteric. HEART: n o clicks, gallops, murmurs, or rubs, regular rhythm, S1, S2 normal, no s3, or vascular bruits. LUNGS: , diminished breath sounds throughout, scattered inspiratory wheezes, good air movement. BREASTS: no masses palpable bilaterally. ABDOMEN: b owel sounds normal, no ascites, no organomegaly, no mass. RECTAL EXAM: n ot examined. MUSCULOSKELETAL: e xtremities unremarkable, no clubbing, cyanosis or edema. PERIPHERAL PULSES: D iminished in the lower extremities, feet pink and warm. NEUROLOGIC: a lert and oriented, cranial nerves 2-12 grossly intact, deep tendon reflexes 2+ symmetrical, motor strength normal upper and lower extremities, sensory exam intact. PSYCH: a lert, oriented. Assessment: * Assessment: 1. A cute diffuse otitis externa of both ears - H60.313 (Primary) N otes :The left ear was primarily involved. The otic canalWas uninvolved. The tympanic membrane was normal. A prescription for Bactrim was given to him. 2 . L umbar radiculopathy, right - M54.16 N otes :He continues to have pain that comes from his lower lumbar spine and right paravertebral muscles that radiates into his right buttock. X-rays have shown degenerative disease. The pain is aggravated with walking more than 10 feet and lifting more than 10 pounds. He has been referred to [facility] and [facility] medicine for physical therapy injections imaging and evaluation for surgery. 3 . H ypertension - I10 N otes :His blood pressure has been 134/77. No change in his regimen was made. I encouraged him to pursue aggressive sodium restriction. He was given an appointment to come to the office and recheck his blood pressure.He will continue on the losartan given by cardiology. 4 . B PH (benign prostatic hyperplasia) - N40.0 N otes :He rises from sleep usually once a night occasionally twice. We have discussed lifestyle modifications he can make to reduce nocturia. 5 . P eripheral arterial disease - I73.9 N otes :His claudication is stable at 1 block. He recently saw the vascular surgeon. He recently underwent a revision of his left femoral-popliteal bypass graft. The wound is now healed. He experiences some claudication in his right leg and is able to walk one block without stopping to rest. 6 . T obacco dependence - F17.200 N otes :He continues to smoke a package of cigarettes every day. We discussed the health consequences of this. His COPD has been stable and inactive recently. I made him aware of the smoking cessation programs and the local hospitals and this community. 7 . P orphyria cutanea tarda - E80.1 N otes :The diagnosis of porphyria was made by a bead wire taper at [facility]. He affirms that if he goes into direct sunlight. He will experience blisters and skin lesions. He is well versed in how to prevent this and has medications for his skin. 8 . C OPD (chronic obstructive pulmonary disease) - J44.9 N otes :His breathing is currently unimpaired. He denies any wheezing or shortness of breath with activities of daily life. He continues to smoke cigarettes, however. We discussed smoking cessation. I reviewed with him the importance of reducing and eliminating the use of tobacco. We have reviewed the health consequences of continued smoking, which include lung cancer, COPD, oxygen dependence, etc. Plan: * Treatment: 2. O thers Continue Pantoprazole Sodium Tablet Delayed Release, 40 MG, one tablet daily, Orally, Once a day;?Continue amLODIPine Besylate Tablet, 10 MG, as directed, Orally, Once a day; C ontinue Rosuvastatin Calcium Tablet, 20 MG, 1 tablet, Orally, Once a day; C ontinue Varenicline Tartrate (Starter) Tablet Therapy Pack, 0.5 MG X 11 & 1 MG X 42, as directed, Orally, as directed; C ontinue traMADol HCl Tablet, 50 MG, 1 tablet, Orally, every 6 hours prn back pain; C ontinue Combivent Respimat Aerosol Solution, 20-100 MCG/ACT, 1 puff as needed, Inhalation, every 6 hrs; C ontinue Ibuprofen Tablet, 800 MG, Oral; C ontinue Symbicort Aerosol, 160-4.5 MCG/ACT, 2 puffs, Inhalation, Twice a day; C ontinue Mupirocin Ointment, 2 %, 1 application, Externally, Twice a day; Continue Clopidogrel Bisulfate Tablet, 75 MG, 1 tablet, Orally, Once a day; C ontinue Sildenafil Citrate Tablet, 100 MG, 1 tablet as needed, Orally, Once a day; S tart Cefuroxime Axetil Tablet, 500 MG, 1 tablet, Orally, every 12 hrs, 7 days, 14 Tablet, Refills 1. * Labs: * L ab: Routine Culture * Procedure Codes: * Preventive Medicine: Counseling: S moking/Tobacco Use Patient counseled on the dangers of tobacco use and urged to quit. 0 01/10/2025 Patient Lifestyle Goals P atient wants to quit Treatment Goals C ut down by 1 cigarette a week, Set a quit date Barriers S ocial smoker, Stress Self-Management Plan M kelly a plan to cut down number of cigarettes over time and set a date to work towards quitting COPD Care Plan: P atient Lifestyle Goals B e able to be more active with friends and family, Reduce number of ED and hospitalizations, Relieve symptoms and improve quality of life. T reatment Goals Q uit Smoking. B arriers n o barriers. S elf-Managment Goals M kelly a plan for quitting smoking. * Follow Up: 1 Week (Reason: Telehealth) * Images: * Sign off status: Completed true * Provider: Frantz Huertas MD Date: 0 01/10/2025 Generated for Vanessa rodriguez/Namita/eTransmitting on: 1 12:30 PM EDT History and Physical Notes * HPI (History of Present Illness) Category Sub-Category Detail Notes COVID-19 Screening Questions Have you had any new onset fever, chills, cough, congestion, sore throat, shortness of breath, muscle aches?: No Examination Category Sub-Category Detail Notes General Examination GENERAL APPEARANCE: pleasant , well nourished, well developed, in no acute distress, calm and relaxed, man HEAD: atraumatic, normocep halic EYES: eomi, perrla, anicte jagruti, conjugate EARS: Hearing is intact, m ild to moderate skin scaling and erythema external canals mild cerumen tympanic membranes normal NOSE: septum intact NECK/THYROID: no jugular venous di stention, no carotid bruit, thyroid normal HEART: no clicks, gallops, murmurs, or rubs, regular rhythm, S1, S2 normal, no s3, or vascular bruits LUNGS: , diminished breath sounds throughout, scattered inspiratory wheezes, good air movement ABDOMEN: bowel sounds normal, no ascites, no organomegaly, no mass NEUROLOGIC: alert and oriented, cranial nerves 2-12 grossly intact, deep tendon reflexes 2+ symmetrical, motor strength normal upper and lower extremities, sensory exam intact SKIN: no suspicious lesion s, anicteric PERIPHERAL PULSES: Diminished in the lo wer extremities, feet pink and warm BREASTS: no masses palpable b ilaterally MUSCULOSKELETAL: extremities unremark able, no clubbing, cyanosis or edema LYMPH NODES: no enlarged lymph no jose,spleen normal RECTAL EXAM: not examined PSYCH: alert, oriented ORAL CAVITY: normal, unremarkable
--- OUTSIDE RECORDS SUMMARY | 2025-01-18 07:15 | XMS_ITS ---
Author Organization Ashish Huertas III, MD Address [address] [place] [address] Care Team Providers Care Conflict Resolution Professional Name Role Phone Dr. Ashish Huertas III Primary Care Provider Allergies Allergen (clinical drug ingredient) Drug/Non Drug Allergy documented on EMR Reaction Allergy Type Onset Date Status doxycycline Doxycycline Unknown Drug Allergy Act henrry REASON FOR VISIT copd, Hypertension, benign prostatic hypertrophy, Peripheral arterial disease, Porphyria, Lumbar radiculopathy, Tobacco dependence, Bilateral ear pain with dyscharge Medications Medication SIG (Take, Route, Frequency, Duration) Notes Start Date End Date Status Combivent Respimat 20-100 MCG/ACT 1 puff as needed Inhalation every 6 hrs Active Ibuprofen 800 MG Oral Act henrry Symbicort 160-4.5 MCG/ACT 2 puffs Inhala tion Twice a day Active Mupirocin 2 % 1 application Blast Furnace Tender ally Twice a day 11/20/2023 Active Clopidogrel Bisulfate 75 MG 1 tablet Ora lly Once a day 08/02/2024 Active Varenicline Tartrate (Starter) 0.5 MG X 11 & 1 MG X 42 as directed Orally as directed 01/30/2023 Active traMADol HCl 50 MG 1 tablet Orally ever y 6 hours prn back pain 12/23/2022 Active Pantoprazole Sodium 40 MG one tablet miguel angel ly Orally Once a day 10/04/2024 Active amLODIPine Besylate 10 MG as directed Or ally Once a day Active Rosuvastatin Calcium 20 MG 1 tablet Oral ly Once a day Active Sildenafil Citrate 100 MG 1 tablet as ne eded Orally Once a day 10/28/2024 Active Cefuroxime Axetil 500 MG 1 tablet Orally every 12 hrs 01/10/2025 Active Losartan Potassium 25 MG 1 tablet [...] cigarett e smoker (1-9 cigs/day) Vital Signs Height 70 in 01/18/2025 Weight 172 lbs 01/18/2025 BMI 24.68 kg/m2 01/18/2025 Encounters Encounter Location Date Provider Diagnosis Ashish Huertas III, MD [address] [place] [address] [place] [address] 01/18/2025 Ashish Huertas Acute bronchitis due to other specified organisms J20.8 ; Hypertension I10 ; BPH (benign prostatic hyperplasia) N40.0 ; COPD (chronic obstructive pulmonary disease) J44.9 ; Peripheral arterial disease I73.9 and Lumbar radiculopathy, right M54.16 Assessments Encounter Date Diagnosis (ICD Code) Assessment Notes Treatment Notes Treatment Clinical Notes 01/18/2025 Acute bronchitis due to other specified organisms (ICD-10 - J20.8) He is producing green phlegm and says he is wheezing. The inhaler is helping. He was given a Zithromax and prednisone with a follow-up visit. 01/18/2025 Hypertension (ICD-10 - I10) His blood pressure has been 134/77. No change in his regimen was made. I encouraged him to pursue aggressive sodium restriction. He was given an appointment to come to the office and recheck his blood pressure.He will continue on the losartan given by cardiology. 01/18/2025 BPH (benign prostatic hyperplasia) (ICD-10 - N40.0) He rises from sleep usually once a night occasionally twice. We have discussed lifestyle modifications he can make to reduce nocturia. 01/18/2025 COPD (chronic obstructive pulmonary disease) (ICD-10 - [...] include lung cancer, COPD, oxygen dependence, etc. 01/18/2025 Peripheral arterial disease (ICD-10 - I73.9) His claudication is stable at 1 block. He recently saw the vascular surgeon. He recently underwent a revision of his left femoral-popliteal bypass graft. The wound is now healed. He experiences some claudication in his right leg and is able to walk one block without stopping to rest. 01/18/2025 Lumbar radiculopathy, right (ICD-10 - M54.16) He [...] Name Sig Start Date Stop Date Notes Combivent Respimat 20-100 MCG/ACT 1 puff as needed Inhalation every 6 hrs Ibuprofen 800 MG Oral Symbicort 160-4.5 MCG/ACT 2 puffs Inhala tion Twice a day Mupirocin 2 % 1 application Blast Furnace Tender ally Twice a day 11/20/2023 Clopidogrel Bisulfate 75 MG 1 tablet Orally Once a day 01/2024 Varenicline Tartrate (Starte r) 0.5 MG X 11 & 1 MG X 42 as directed Orally as directed 01/30/2023 traMADol HCl 50 MG 1 tablet Orally ever y 6 hours prn back pain 12/23/2022 Pantoprazole Sodium 40 MG one tablet miguel angel ly Orally Once a day 10/04/2024 amLODIPine Besylate 10 MG as directed Or ally Once a day Rosuvastatin Calcium 20 MG 1 tablet Orally Once a day Sildenafil Citrate 100 MG 1 tablet as ne eded Orally Once a day 10/28/2024 Cefuroxime Axetil 500 MG 1 tablet Orally every 12 hrs 12/27 Losartan Potassium 25 MG 1 tablet Orally Once a day 2024 Next Appt Details Follow Up: As Scheduled, [place] son: OV Provider Name:Ashish Huertas , 09/06/2025 10:30:00 AM, [address] [place] [address] [address], [place], [address], Provider Name:Ashish Huertas , 10/31/2025 02:00:00 PM, [address] [place] [address] [address], [place], [address], Progress Notes * Sid LANDEROS MDOB: 2 (64 yo M)Acc No.[id number]:01/18/2025 Patient: Sid COBOS Mili Provider: Frantz Huertas MD :1960 A ge:64 Y S ex:Male Date:01/18/2025 Address:[address] [place] [address], [id number] Subjective: * Chief Complaints: * C opdHypertensionBenign prostatic hypertrophyPeripheral arterial diseasePorphyriaLumbar radiculopathyTobacco dependenceBilateral ear pain with dyscharge * HPI: * : This telehealth visit took place over 15 min. with the patient at home and me in my office. He gave consent for billing. He reports that after treatment the pain in his ears has resolved and there is no further discharge. His hearing has returned to baseline. He has no new complaints and is breathing comfortably. Jodi collazo has not experienced any pollen allergies. His other medical issues are stable. Telehealth L ocation of provider rendering services: { ...} [address] [facility] [address] L ocation of patient: medina howelless listed in demographics for today's visit P atient identification confirmed using: N johan, T elehealth method: T elephone only. Patient not visible to care provider. C onsent: P atient verbally consented to treatment, Patient verbally consented to billing insurance company, Patient informed of any privacy concerns related to method of visit T otal time spent with patient (mins) 1 5 * ROS: G eneral/Constitutional: pain o nly normal aches and pains. C hills d enies.?Fatigue a dmits. F ever d enies. E NT: Decreased hearing d enies. R espiratory: Cough n on-productive. C ardiovascular: Chest pain with exertion d [...] Surgical History: [place] [place]Esophagogastricduodoscopy Excision of lipoma, left triceps, age 8 Repair of pilonidal cyst Fracture of 2 fingers Colonoscopy, [facility], Dr. Ramos Arterial Bipass 05/2022No history * Hospitalization/Major Diagno stic Procedure: N o [...] reduced his smoking significantly. * Medications: T akingPantoprazole Sodium 40 MG Tablet Delayed Release one [...] tablet as needed Orally Once a day Losartan Potassium 25 MG Tablet 1 tablet Orally Once a day Cefuroxime Axetil 500 MG Tablet 1 tablet Orally every 12 hrs , stop date 01/24/2025Medication List reviewed and reconciled with the patientTaking Pantoprazole Sodium 40 MG Tablet Delayed Release [...] 1 tablet Orally Once a day Taking Cefuroxime Axetil 500 MG Tablet 1 tablet Orally every 12 hrs , stop date 01/24/2025Medication List reviewed and reconciled with the patient * Allergies: D oxycyclineno[Allergies Verified] Objective: * Vitals: H t: 70, Wt: 172, BMI:24.68, Ht-cm: 177.8, Wt-k.02. * P ast Orders: Lab:URINE DIP STICK * Collection Date 10/28/2024 09/23/2023 Order Date 10/28/2024 09/23/2023 SG 1.005 (Ref Range: 1.005 - 1.025) 1.010 (Ref Range: 1.005 - 1.025) pH 7.0 (Ref Range: 5.0 - 9.0) 6.5 (Ref Range: 5.0 - 9.0) JAYLYN Neg (Ref Range: Negative -) Negative (Ref Range: Negative -) NIT Neg (Ref Range: Negative -) Negative (Ref Range: Negative -) PRO 15 (Ref Range: Negative - Trace) 15 (Ref Range: Negative - Trace) GLU Neg (Ref Range: Negative -) Negative (Ref Range: Negative -) KET Neg (Ref Range: Negative -) 5 (Ref Range: Negative -) UBG 0.2 (Ref Range: 0.1 - 1.8) 0.2 (Ref Range: 0.1 - 1.8) DIOR 1 (Ref Range: 0.2 - 1.3) Negative (Ref Range: 0.2 - 1.3) BLD Neg (Ref Range: Negative -) Negative (Ref Range: Negative -) Assessment: * Assessment: 1. A cute bronchitis due to other specified organisms - J20.8 (Primary) N otes :He is producing green phlegm and says he is wheezing. The inhaler is helping. He was given a Zithromax and prednisone with a follow-up visit. 2 . H ypertension - I10 N otes :His blood pressure has been 134/77. No change in his regimen was made. I encouraged him to pursue aggressive sodium restriction. He was given an appointment to come to the office and recheck his blood pressure.He will continue on the losartan given by cardiology. 3 . B PH (benign prostatic hyperplasia) - N40.0 N otes :He rises from sleep usually once a night occasionally twice. We have discussed lifestyle modifications he can make to reduce nocturia. 4 . C OPD (chronic obstructive pulmonary disease) [...] include lung cancer, COPD, oxygen dependence, etc. 5 . P eripheral arterial disease - I73.9 N otes :His claudication is stable at 1 block. He recently saw the vascular surgeon. He recently underwent a revision of his left femoral-popliteal bypass graft. The wound is now healed. He experiences some claudication in his right leg and is able to walk one block without stopping to rest. 6 . L umbar radiculopathy, right - M54.16 [...] therapy injections imaging and evaluation for surgery. Plan: * Treatment: 2. O thers Continue Losartan Potassium Tablet, 25 MG, 1 tablet, Orally, Once a day. * Procedure Codes: * Preventive Medicine: Counseling: S moking/Tobacco Use Patient counseled on the dangers of tobacco use and urged to quit. 0 01/18/2025 Patient Lifestyle Goals P atient wants to [...] be more active with friends and family, Relieve symptoms and improve quality of life. T reatment Goals E xercise to help whole body, including lungs, Quit Smoking. B arriers n o barriers. S elf-Managment Goals M kelly a plan for quitting smoking. * Follow Up: A s Scheduled (Reason: OV) * Images: * Sign off status: Completed true * Provider: Frantz Huertas MD Date: 0 01/18/2025 Generated for Vanessa rodriguez/Namita/Lesly on: 1 12:29 PM EDT History and Physical Notes * HPI (History of Present Illness) Category Sub-Category Detail Notes Telehealth Location of [facility] rendering services:: {...} [address] [place] [address] [place] [id number] Location of patient:: address listed in demographics [...]
--- OUTSIDE RECORDS SUMMARY | 2025-01-23 10:30 | XMS_ITS ---
Author Organization Ashish Huertas III, MD Address [address] [place] [address] Care Team Providers Care Employee Relations Advisor Name Role Phone Dr. Ashish Huertas III Primary Care Provider Allergies Allergen (clinical drug ingredient) Drug/Non Drug Allergy documented on EMR Reaction Allergy Type Onset Date Status doxycycline Doxycycline Unknown Drug Allergy Act henrry REASON FOR VISIT Viral syndrome, Over Jaycee, COPD, Hypertension, Tobacco dependence, Lumbar radiculopathy Medications Medication SIG (Take, Route, Frequency, Duration) Notes Start Date End Date Status Sildenafil Citrate 100 MG 1 tablet as ne eded Orally Once a day 10/28/2024 Active Cefuroxime Axetil 500 MG 1 tablet Orally every 12 hrs 01/10/2025 Active Losartan Potassium 25 MG 1 tablet Orally Once a day 01/10/2025 Active Mupirocin 2 % 1 application Special Events Director ally Twice a day 11/20/2023 Active Clopidogrel Bisulfate 75 MG 1 tablet Ora lly Once a day 08/02/2024 Active Ibuprofen 800 MG Oral Act henrry Symbicort 160-4.5 MCG/ACT 2 puffs Inhala tion Twice a day Active Varenicline Tartrate (Starter) 0.5 MG X 11 & 1 MG X 42 as directed Orally as directed 01/30/2023 Active traMADol HCl 50 MG 1 tablet Orally ever y 6 hours prn back pain 12/23/2022 Active Combivent Respimat 20-100 MCG/ACT 1 puff as needed Inhalation every 6 hrs Active Pantoprazole Sodium 40 MG one tablet miguel angel ly Orally Once a day 10/04/2024 Active amLODIPine Besylate 10 MG as directed Or ally Once a day Active Rosuvastatin Calcium 20 MG 1 tablet Oral ly Once a day Active Social History Tobacco [...] Problem Status W/U Status Risk Notes Problem [id number] Viral syndrome (B34.9) Active confirmed I'm going to speak to him on a daily basis because of the risk of progression of respiratory disease. He has continued to smoke and has COPD. He will continue to use his inhalers as directed. If necessary he will be given oral prednisone and an antibiotic. Encounters Encounter Location Date Provider Diagnosis Ashish Huertas III, MD [address] [place] [address] [place] [address] 01/23/2025 Ashish Huertas Viral syndrome B34.9 ; COPD (chronic obstructive pulmonary disease) J44.9 ; Hypertension I10 ; BPH (benign prostatic hyperplasia) N40.0 ; Peripheral arterial disease I73.9 ; Tobacco dependence F17.200 ; Porphyria cutanea tarda E80.1 and Lumbar radiculopathy, right M54.16 Assessments Encounter Date Diagnosis (ICD Code) Assessment Notes Treatment Notes Treatment Clinical Notes 01/23/2025 Viral syndrome (ICD-10 - B34.9) I'm going to speak to him on a daily basis because of the risk of progression of respiratory disease. He has continued to smoke and has COPD. He will continue to use his inhalers as directed. If necessary he will be given oral prednisone and an antibiotic. 01/23/2025 COPD (chronic obstructive pulmonary disease) (ICD-10 - [...] include lung cancer, COPD, oxygen dependence, etc. 01/23/2025 Hypertension (ICD-10 - I10) His blood pressure has been 134/77. No change in his regimen was made. I encouraged him to pursue aggressive sodium restriction. He was given an appointment to come to the office and recheck his blood pressure.He will continue on the losartan given by cardiology. 01/23/2025 BPH (benign prostatic hyperplasia) (ICD-10 - N40.0) He rises from sleep usually once a night occasionally twice. We have discussed lifestyle modifications he can make to reduce nocturia. 01/23/2025 Peripheral arterial disease (ICD-10 - I73.9) His claudication is stable at 1 block. He recently saw the vascular surgeon. He recently underwent a revision of his left femoral-popliteal bypass graft. The wound is now healed. He experiences some claudication in his right leg and is able to walk one block without stopping to rest. 01/23/2025 Tobacco dependence (ICD-10 - F17.200) He continues to smoke a package of cigarettes every day. We discussed the health consequences of this. His COPD has been stable and inactive recently. I made him aware of the smoking cessation programs and the local hospitals and this community. 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 He affirms that if he goes into direct sunlight. He will experience blisters and skin lesions. He is well versed in how to prevent this and has medications for his skin. 01/23/2025 Lumbar radiculopathy, right (ICD-10 - M54.16) He continues to have pain that comes from his lower lumbar spine and right paravertebral muscles that radiates into his right buttock. X-rays have shown degenerative disease. The pain is aggravated with walking more than 10 feet and lifting more than 10 pounds. He has been referred to [facility] spine and sports rehabilitation medicine for physical therapy injections imaging and evaluation for surgery. Plan Of Treatment Medication Medication Name Sig Start Date Stop Date Notes Sildenafil Citrate 100 MG 1 tablet as ne eded Orally Once a day 10/28/2024 Cefuroxime Axetil 500 MG 1 tablet Orally every 12 hrs 04/1 01/2025 Losartan Potassium 25 MG 1 tablet Orally Once a day 2024 Mupirocin 2 % 1 application Special Events Director ally Twice a day 11/20/2023 Clopidogrel Bisulfate 75 MG 1 tablet Orally Once a day 01/2024 Ibuprofen 800 MG Oral Symbicort 160-4.5 MCG/ACT 2 puffs Inhala tion Twice a day Varenicline Tartrate (Starte r) 0.5 MG X 11 & 1 MG X 42 as directed Orally as directed 01/30/2023 traMADol HCl 50 MG 1 tablet Orally ever y 6 hours prn back pain 12/23/2022 Combivent Respimat 20-100 MCG/ACT 1 puff as needed Inhalation every 6 hrs Pantoprazole Sodium 40 MG one tablet miguel angel ly Orally Once a day 10/04/2024 amLODIPine Besylate 10 MG as directed Or ally Once a day Rosuvastatin Calcium 20 MG 1 tablet Orally Once a day Next Appt Details Follow Up: as scheduled, [place] son: OV as scheduled Provider Name:Ashish Huertas , 09/06/2025 10:30:00 AM, [address] [place] [address] [address], [place], [address], Provider Name:Ashish Huertas , 10/31/2025 02:00:00 PM, [address] [place] [address] [address], [place], [address], Progress Notes * Sid LANDEROS MDOB: 2 (64 yo M)Acc No.[id number]:01/23/2025 Patient: Logan MALLORYSUPRIYASid Provider: Frantz Huertas MD :1960 A ge:64 Y S ex:Male Date:01/23/2025 Address:[address] [place] [address] [place], [id number] Subjective: * Chief Complaints: * V iral syndromeOver FeriaCOPDHypertensionTobacco dependenceLumbar radiculopathy * HPI: C OVID-19 Screening: T his telehealth visit took place over 15 minutes with the patient at home and me in my office. He gave consent for billing. This gentleman has known COPD and peripheral arterial disease benign prostatic hypertrophy lumbar radiculopathy and hypertension in the face of continued smoking 1 package of cigarettes per day. He reports that beginning yesterday he felt very tired and developed a shaking chill when a temperature of 99.5. He has a runny nose and shortness of breath with exertion. His Covid test is negative.He does not think he is wheezing. He continues to take his inhalers. It sounds over the phone like a viral syndrome or influenza, not an exacerbation of COPD. He is going to talk to me on the telephone every day. If necessary he will be given steroids and antibiotics. Questions H ave you had any new onset fever, chills, cough, congestion, sore throat, shortness of breath, muscle aches? N o * : Telehealth L ocation of provider rendering services: { ...} [address] [place] [address] Drive [address] [facility] [address] L ocation of patient: medina ddress listed in demographics for today's visit P atient identification confirmed using: MARJ Tejeda ame T elehealth method: T elephone only. Patient not visible to care provider. C onsent: P atient verbally consented to treatment, Patient verbally consented to billing insurance company, Patient informed of any privacy concerns related to method of visit T otal time spent with patient (mins) 1 5 * ROS: G eneral/Constitutional: pain o nly normal aches and pains, only normal aches and pains. C hills a ssociated with fever, denies. F atigue a dmits, admits. F ever?up to 99 degrees, denies. E NT: Decreased hearing d enies, denies. R espiratory: Cough w orse at night, denies. C ardiovascular: Chest pain with exertion d enies, denies. D yspnea on exertion d enies, denies. S hortness of breath w ith exertion, denies. G astrointestinal: Constipation o ccasional, denies. D ecreased appetite?that is not associated with weight loss, denies. D iarrhea d enies, denies. H eartburn d enies, denies. N ausea d enies, denies. R ectal bleeding d enies, denies. Vomiting d enies, denies. H ematology: bruising d enies, denies. p etechiae d enies, denies. S wollen glands n one have been noted, none have been noted. G enitourinary: Frequent urination o nce a night, denies. M usculoskeletal: Muscle aches d enies, denies. P ainful joints d enies, denies. S ciatica d enies, denies. W eakness d enies, denies. S kin: Itching d enies, denies. R flako d enies, denies.?Skin lesion(s) d enies, denies. N eurologic: Difficulty speaking d enies, denies. D izziness d enies, denies. H eadache d enies, denies. L ow back pain d enies, denies. ? P sychiatric: Depressed mood d enies, denies. * Medical History: * Surgical History: F emoral -[place]opl[place] [place]Esophagogastricduodoscopy Excision of lipoma, left triceps, age 8 Repair of pilonidal cyst Fracture of 2 fingers Colonoscopy, [facility], Dr. Ramos Arterial Bipass 05/2022No history * Hospitalization/Major Diagno stic Procedure: N o history * Family History: F ather: 72 yrs, diagnosed with CVD, DM. M other: 83 yrs. S iblings: alive, [...] tablet as needed Orally Once a day Cefuroxime Axetil 500 MG Tablet 1 tablet Orally every 12 hrs Losartan Potassium 25 MG Tablet 1 tablet [...] as needed Orally Once a day Taking Cefuroxime Axetil 500 MG Tablet 1 tablet Orally every 12 hrs Taking Losartan Potassium 25 MG Tablet 1 tablet Orally Once a day Medication List reviewed and reconciled with the patient * Allergies: D oxycyclineno[Allergies Verified] Objective: * Vitals: Assessment: * Assessment: 1. V iral syndrome - B34.9 (Primary) N otes :I'm going to speak to him on a daily basis because of the risk of progression of respiratory disease. He has continued to smoke and has COPD. He will continue to use his inhalers as directed. If necessary he will be given oral prednisone and an antibiotic. 2 . C OPD (chronic obstructive pulmonary disease) [...] include lung cancer, COPD, oxygen dependence, etc. 3 . H ypertension - I10 N [...] diagnosis of porphyria was made by a molder trimmer at [facility]. He affirms that if he goes into direct sunlight. He will experience blisters and skin lesions. He is well versed in how to prevent this and has medications for his skin. 8 . L umbar radiculopathy, right - M54.16 N otes :He continues to have pain that comes from his lower lumbar spine and right paravertebral muscles that radiates into his right buttock. X-rays have shown degenerative disease. The pain is aggravated with walking more than 10 feet and lifting more than 10 pounds. He has been referred to [facility] spine and sports rehabilitation medicine for physical therapy injections imaging and evaluation for surgery. Plan: * Treatment: * Procedure Codes: 9 8012 SYNCH AUDIO-ONLY EST SF 10 * Preventive Medicine: Counseling: S moking/Tobacco Use Patient counseled on the dangers of tobacco use and urged to quit. 0 01/23/2025 Patient Lifestyle Goals P atient wants to quit Treatment Goals S et a quit date, Cut down by 1 cigarette a week Barriers S tress, Social smoker Self-Management Plan M kelly a plan to cut down number of cigarettes over time and set a date to work towards quitting COPD Care Plan: P atient Lifestyle Goals R elieve symptoms and improve quality of life, Reduce number of ED and hospitalizations, Be able to be more active with friends and family. T reatment Goals Q uit Smoking. B arriers n o barriers. S elf-Managment Goals M kelly a plan for quitting smoking, Get an air purifier for the rooms you are in the most, Eat a healthy diet, Exercise at least 3xs per week for at least 30 mins. * Follow Up: a s scheduled (Reason: OV as scheduled) * Images: * Sign off status: Completed true * Provider: Frantz Huertas MD Date: 0 01/23/2025 Generated for Vanessa rodriguez/Namita/Braydensmitting on: 1 12:30 PM EDT History and Physical Notes * HPI (History of Present Illness) Category Sub-Category Detail Notes Telehealth Location of [facility] rendering services:: {...} [address] [place] [address] Location of patient:: address listed in demographics for today's visit Patient identification confirmed using:: Name, Telehealth method:: Telephone only. Fabiola ent not visible to care provider. Consent:: Patient verbally c onsented to treatment, Patient verbally consented to billing insurance company, Patient informed of any privacy concerns related to method of visit Total time spent with patient (mins): 15 COVID-19 Screening Questions Have you had any new onset fever, chills, cough, congestion, sore throat, shortness of breath, muscle aches?: No
--- OUTSIDE RECORDS SUMMARY | 2025-01-24 06:30 | XMS_ITS ---
Author Organization Ashish Huertas III, MD Address [address] [place] [address] [place] [address] Care Team Providers Care Data Systems Analyst Name Role Phone Dr. Ashish Huertas III Primary Care Provider REASON FOR VISIT Message Social History Sex Assigned At : Social History Observation Description Sex Assigned At Male Encounters Encounter Location Date Provider Diagnosis Ashish Huertas III, MD [address] [place] [address] [place] [address] 01/24/2025 Ashish Huertas Plan Of Treatment Next Appt Details Provider Name:Ashish Huertas , 09/06/2025 10:30:00 AM, [address] [place] [address] [place], [address], Provider Name:Ashish Huertas , 10/31/2025 02:00:00 PM, [address] [place] [address] [place], [address], Progress Notes * Sid LANDEROS MDOB: 2 (64 yo M)Acc No.[id number]:01/24/2025 Patient: Sid COBOS :1960 A ge:64 Y S ex:Male Address:[address] [place], [address] * true * Date: Generated for Printi ng/Faxing/eTransmitting on: 12:30 PM EDT
--- OUTSIDE RECORDS SUMMARY | 2025-02-14 10:00 | XMS_ITS ---
Author Organization Ashish Huertas III, MD Address [address] [place] [facility] [place] [address] Care Team Providers Care Panelboard Operator Name Role Phone Dr. Ashish Huertas III Primary Care Provider Allergies Allergen (clinical drug ingredient) Drug/Non Drug Allergy documented on EMR Reaction Allergy Type Onset Date Status doxycycline Doxycycline Unknown Drug Allergy Act henrry Results Component Value Reference Range Notes Routine Culture Reviewed date:06/19/2025 05:40:55 AM Interpretation: Performing Lab:[facility], [address] [place] [id number] Notes/Report: Routine Culture Report - external Routine [...] Problem Status W/U Status Risk Notes Problem [id number] Staphylococcus infection (B95.8) Active confirmed This seems [...] Date Provider Diagnosis Ashish Huertas III, MD [address] [place] [address] [place] [address] 02/14/2025 Ashish Huertas Staphylococcus infec tion B95.8 [...] 10 pounds. He has been referred to [facility] spine and sports rehabilitation medicine for [...] diagnosis of porphyria was made by a polymer materials consultant at [facility]. He affirms that if he [...] Provider Name:Ashish Huertas , 09/06/2025 10:30:00 AM, [address] [place] [address] [address], [place], [phone], Provider Name:Ashish Huertas , 10/31/2025 02:00:00 PM, [address] [place] [address] [address], [place], [phone], Progress Notes * Sid LANDEROS MDOB: 2 (64 yo M)Acc No.[id number]:02/14/2025 Progress Notes Patient: Logan AUGUSTIN Sid Mili Provider: Frantz Huertas MD :1960 A ge:64 Y S ex:Male Date:02/14/2025 Address:[address] [place] [address] N[place] [id number] Subjective: * Chief Complaints: * b ilateral [...] Surgical History: F emoral -popliteal arterial bypass @[facility] [place] 05/2022Esophagogastricduodoscopy Excision of lipoma, left triceps, age 8 Repair of pilonidal cyst Fracture of 2 fingers Colonoscopy, [facility], Dr. Ramos Arterial Bipass 05/2022No history * [...] 10 pounds. He has been referred to [facility] spine and sports rehabilitation medicine for [...] diagnosis of porphyria was made by a polymer materials consultant at [facility]. He affirms that if he [...] MD Date: 0 02/14/2025 Generated for Vanessa rodriguez/Namita/eTanilsmitting on: 1 12:30 PM EDT History and [...]
--- OUTSIDE RECORDS SUMMARY | 2025-02-28 11:30 | XMS_ITS ---
Author Organization Ashish Huertas III, MD Address [address] [facility] [address] [place] [address] Care Team Providers Care Parts Manager Name Role Phone Dr. Ashish Huertas III [...] Problem Status W/U Status Risk Notes Problem [id number] Ear infection (H66.90) Active confirmed He has complete d a course of antibiotics for the skin inflammation on each year. A repeat culture grew only Tereza. The appearance is much improved. Problem 327908921 Age-related incipient cataract of both eyes (H25.093) [...] Provider Diagnosis Ashish Huertas III, MD [address] [place] [address] [place] [address] 02/28/2025 Ashish Huertas BPH (benign prostati c [...] Name:Ashish Huertas , 09/06/2025 10:30:00 AM, [address] [facility] [address], [place], [address], Provider Name:Ashish Huertas , 10/31/2025 02:00:00 PM, [address] [place] [address] [address], [place], [address], Progress Notes * Sid LANDEROS MDOB: 2 (64 yo M)Acc No.[id number]:02/28/2025 Patient: Sid COBOS Provider: Frantz Huertas MD :1960 A ge:64 Y S ex:Male Date:02/28/2025 Address:[address] [place] [address] KEVIN, [place] ANTUNEZXR-[id number] Subjective: * Chief Complaints: * M edical [...] Surgical History: F [place]oral [place]opliteal [place] [place]Esophagogastricduodoscopy Excision of lipoma, left triceps, age [...] 0 02/28/2025 Generated for Vanessa rodriguez/Namita/Braydensmitting on: 12:29 PM EDT History and Physical Notes [...]
--- OUTSIDE RECORDS SUMMARY | 2025-04-07 05:42 | XMS_ITS ---
Author Organization Ashish Huertas III, MD Address [address] [place] [address] [place] [address] Care Team Providers Care Assembler Fluorescent Lights Name Role Phone Dr. Ashish Huertas III Primary Care Provider REASON FOR VISIT Needs call back from Social History Sex Assigned At : Social History Observation Description Sex Assigned At Male Encounters Encounter Location Date Provider Diagnosis Ashish Huertas III, MD [address] [place] [address] [place] [address] 04/07/2025 Ashish Huertas Plan Of Treatment Next Appt Details Provider Name:Ashish Huertas , 09/06/2025 10:30:00 AM, [address] [place] [address] [place], [address], Provider Name:Ashish Huertas , 10/31/2025 02:00:00 PM, [address] [place] [address] [place], [address], Progress Notes * Sid LANDEROS MDOB: 2 (64 yo M)Acc No.[id number]:04/07/2025 Patient: Logan MALLORYSUPRIYASid :1960 A ge:64 Y S ex:Male Address:[address] [place], [address] * true * Date: Generated for Printi ng/Faxing/eTransmitting on: 1 12:28 PM EDT
--- OUTSIDE RECORDS SUMMARY | 2025-06-02 05:00 | XMS_ITS ---
Author Organization Ashish Huertas III, MD Address [address] [facility] [facility] [address] [place] [address] Care Team Providers Care Design Drafter Name Role Phone Dr. Ashish Huertas III [...] Date Provider Diagnosis Ashish Huertas III, MD [address] [place] [address] [place] [address] 06/02/2025 Ashish Huertas Plan Of Treatment Medication [...] a day Next Appt Details Provider Name:Ashish Huertas , 09/06/2025 10:30:00 AM, [address] [place] [address] [address], [place], [address], Provider Name:Ashish Huertas , 10/31/2025 02:00:00 PM, [address] [place] [address] [place], [address], Progress Notes * Sid LANDEROS MDOB: 2 (64 yo M)Acc No.[id number]:06/02/2025 Progress Notes Patient: Sid COBOS Provider: Frantz Huertas MD :1960 A ge:64 Y S ex:Male Date:06/02/2025 Address:[address] [place] [address], [id number] Subjective: * Chief Complaints: * 1 . [...] age 8, Porphyria cutanea tarda, Dr. Brady, [facility], Tobacco dependence, Covid19 infection 2021, Lumbar radiculopathy, [...] Surgical History: F emoral -popliteal arterial bypass @[facility] 05/2022, Esophagogastricduodoscopy , Excision of lipoma, left triceps, age 8 , Repair of pilonidal cyst , Fracture of 2 fingers , Colonoscopy, [facility], Dr. Ramos , Arterial Bipass 05/2022, [...] Huertas MD Date: 0 06/02/2025 Generated for Elmeri michael/Namita/eTkatitting on: 12:29 PM EDT History and Physical [...]
--- OUTSIDE RECORDS SUMMARY | 2025-06-07 11:00 | XMS_ITS ---
Author Organization Ashish Huertas III, MD Address [address] [place] [address] Care Team Providers Care Appeals Assistant Name Role Phone Dr. Ashish Huertas III Primary Care Provider [phone] Allergies Allergen (clinical drug ingredient) Drug/Non Drug Allergy documented on EMR Reaction Allergy Type Onset Date Status doxycycline Doxycycline Unknown Drug Allergy Act henrry Results Component Value Reference Range Notes Ferritin Reviewed date:06/19/2025 05:40:55 AM Interpretation: Performing Lab:[facility], [address] [place] [phone] Notes/Report: Ferritin 68 20-250 ng/mL REASON FOR [...] Problem Status W/U Status Risk Notes Problem [id number] Other hemochromatosis (E83.118) Active confirmed We will [...] Date Provider Diagnosis Ashish Huertas III, MD [address] [place] [address] [place] [address] 06/07/2025 Ashish Huertas Tobacco dependence F17.200 ; [...] Provider Name:Ashish Huertas , 09/06/2025 10:30:00 AM, [address] [place] [address] , [address], [place], [address], Provider Name:Ashish Escobedorne , 10/31/2025 02:00:00 PM, [address] [place] [address] [address], [place], [address], Progress Notes * Sid LANDEROS MDOB: 2 (64 yo M)Acc No.[id number]:06/07/2025 Progress Notes Patient: Sid COBOS Provider: Frantz Huertas MD :1960 A ge:64 Y S ex:Male Date:06/07/2025 Address:[address] [place] [address], [place]-[id number] Subjective: * Chief Complaints: * O titisCOPDHypertensionPorphyriaTobacco [...] bypass @[facility] [place] 05/2022Esophagogastricduodoscopy Excision of lipoma, left triceps, age 8 Repair of pilonidal cyst Fracture of 2 fingers Colonoscopy, [facility], Dr. Ramos Arterial Bipass 05/2022No history [...] * Provider: Frantz Huertas MD Date: 0 06/07/2025 Generated for Vanessa rodriguez/Namita/Braydensmitting on: 12:30 PM EDT History and Physical Notes [...]
--- NOTE | 2025-07-25 10:18 | MHC.OFFVIS ---
Intake Visit Reasons: 6 month follow up Arterial 06/22/25 Intake Note: Patient presents for arterial US follow up. No complaints. Accompanied by: Self / Same As Patient Allergies doxycycline Allergy (Intermediate, Verified 07/25/25 10:19) Hives nabumetone Adverse Reaction (Mild, Verified 07/25/25 10:19) green stools HPI HPI 6 month follow up Arterial 06/22/25: Details: The patient is a 64-year-old male presenting for routine surveillance follow-up after left femoral-popliteal bypass surgery. The patient underwent left femoral-popliteal bypass surgery in October 2023. Since the surgery, he has experienced persistent swelling in the left leg and foot, which has not resolved over time. He reports that the swelling never really went down, and there is a notable difference in size compared to the right leg. Patient notices occasional swelling of the lower extremity which is relatively mild. He now presents for routine surveillance follow-up. [facility] Medical History Nocturnal hypoxemia Snoring Excessive daytime sleepiness Bronchitis Abnormal LFTs ETOH abuse Hereditary hemochromatosis Atherosclerotic cardiovascular disease Bilateral carotid artery stenosis PAD (peripheral artery disease) Murmur HTN (hypertension) Hyperlipidemia COPD (chronic obstructive pulmonary disease) SOB (shortness of breath) Allergic rhinitis Nicotine dependence, cigarettes, uncomplicated GERD (gastroesophageal reflux disease) Tubular adenoma of colon Porphyria cutanea tarda Arthritis Surgical History Hx laparoscopic cholecystectomy (06/29/25) History of femoropopliteal bypass History of femoropopliteal bypass (11/02/23) S/P angiogram of extremity History of colonoscopy History of esophagogastroduodenoscopy History of lipoma History of skin graft History of removal of cyst History of foot surgery Family History Father Diabetes Stroke Hypertension Mother Chronic mental illness Family/Other FH: mental illness Social History Household Members: Spouse Housing: House Are you a primary acute care nursing assistant to a significant other at home: No Do you presently have visiting nurse or other home services: No 75 years or older and lives alone: No Alcohol intake: current Alcohol intake frequency: a few times a month Alcohol type: beer Patient Tobacco Use Status: Current everyday Tobacco user Tobacco use type: Cigarette Cigarette Packs Per Day: 1 Cigarettes Per Day: 6 Years Smoked: 35 e-Cigarette/Vaping Use: Never Used Second Hand Smoke Exposure: No service: No Current occupational status: employed 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 occupational exposures/hazards: No Cognitive needs: No Hearing needs: No Vision needs: Yes Review of Systems Const All systems reviewed & are unremarkable except as noted in HPI and below Reports no additional complaints ENT Reports Normal hearing present Card Denies chest pain, Denies chest pain at rest, Denies chest pain with activity and Denies pedal edema Resp Denies cough GI Denies abdominal pain Musc Denies abnormal gait, Denies muscle cramps and Denies radiating pain into limb Skin/Breast Denies skin ulcer and Denies wounds Neuro Reports Normal hearing present and Denies abnormal gait Psych Reports no additional complaints Physical Exam Const General: cooperative, healthy appearing and comfortable Orientation/consciousness: oriented to person, oriented to place and oriented to time HEENT Head: Yes normal to inspection Neck Neck: Yes normal visual inspection Carotids: no bruits Chest Chest palpation & inspection: normal inspection of the chest Resp Effort & Inspection: normal respiratory effort and able to speak in complete sentences Auscultation: clear to auscultation bilaterally, no crackles, no rales, no rhonchi and no wheezes Cardio Rate: regular rate Rhythm: regular rhythm Heart sounds: S1 normal heart sound present and S2 normal heart sound present Bruits: no carotid bruits Peripheral pulses: Peripheral pulses 2+ throughout GI Inspection: Yes normal to inspection Skin Wounds: no wounds Hair: normal Neuro General: oriented to person, oriented to place and oriented to time Cranial nerves: Yes CN's II-XII intact bilaterally and Yes Normal hearing present Cognition (Neuro): normal cognition Motor exam (neuro): 5/5 motor strength present throughout Extrem Other: venous exam: No significant superficial varicosities or spider telangiectasias, minimal edema General: No clubbing, No cyanosis and No edema Psych Appearance: grossly normal Mental Status: mental status grossly normal Speech and movement: Normal speech and movement present Results Reviewed Results Reviewed: Arterial testing dated 06/22/2025 demonstrates KAI on the right of 0.71 and on the left of 0.99 with a left bypass within normal limits. Assessment & Plan Assessment & Plan (1) PAD (peripheral artery disease): Comment: 06/16/2022 - left femoral to popliteal bypass 10/21/2023 - Left external iliac plasty 11/02/2023 - thrombectomy of left fem-pop bypass with distal anastomosis plasty Code(s): I73.9 - Peripheral vascular disease, unspecified Category: Medical Plan: During the visit, we discussed the current status of the left leg post-surgery, noting the persistent swelling and occasional shooting pain. I advised the patient to resume using compression stockings to help manage the swelling. We also reviewed the ultrasound results, which showed normal flow and circulation, indicating a successful outcome of the bypass surgery. We also discussed that he can stop his Plavix. He will follow up with us in a proximally 1 year's time for root routine surveillance follow-up. Thank you for allowing us to assist in his care. Orders: Orders US arterial duplex LE Today I73.9 - Peripheral vascular disease, unspecified Coding Level of Care Code Est Pt Level 4 (93708) Diagnoses PAD (peripheral artery disease) I73.9
--- OUTSIDE RECORDS SUMMARY | 2025-07-25 12:30 | XMS_ITS | Patient Health Record ---
Author Organization Ashish Huertas III, MD Address [address] [place] [address] Care Team Providers Care Print And Pattern Designer Name Role Phone Dr. Ashish Huertas III [...] Culture Reviewed date:06/19/2025 05:40:55 AM Interpretation: Performing Lab:[facility], [address] [place] [phone] Notes/Report: Routine Culture Report - external Routine Culture 4+ Mixed skin wesley O:CANPAR Tereza parapsilosis Routine Culture Quant Org ID Routine Culture 2+ Ferritin Reviewed date:06/19/2025 05:40:55 AM Interpretation: Performing Lab:[facility], [address] [place] [phone] Notes/Report: Ferritin 68 20-250 ng/mL US arterial duplex BI w/ KAI Reviewed date:09/24/2024 07:13:25 AM Interpretation: Performing Lab: Notes/Report: [address] [address] Ultrasound Report Signed Patient: Sid Landeros MR#: [id number] : 1960 Acct:[id number] Age/Sex: 63 / M ADM Date: 08/22/24 Loc: . Attending Dr: Jhony Orr MD Ordering Physician: Jhony Orr MD Date of Service: 08/22/24 Procedure(s): US arterial duplex BI w/ AKI Accession Number(s): [id number] cc: Ashish Huertas MD; Jhony Orr MD [...] 09/23/24 1831 DD/ 1133 TD/TT: 08/22/24 1210 Bartender Manager: [address] [address] Ultrasound Report Signed Patient: Marlo Landeros MR#: [id number] : 1960 Acct:[id number] Age/Sex: 63 / M ADM Date: 08/22/24 Loc: HO.US Attending Dr: Jhony Orr MD Ordering Physician: Jhony Orr MD Date of Service: 08/22/24 Procedure(s): US art erial duplex BI w/ KAI Accession Number(s): [id number] cc: Ashish Huertas MD; Jhony Orr MD EXAMINATION: Noninvasive assessme nt of the bilateral lower extremities with ARTERIAL DUPLEX, ANKLE BRACHI AL INDICES (ABIs), and PULSE VOLUME RECORDINGS (PVRs). CLINICAL INFORMATION: Peripheral arterial disease, status post left fem-pop bypass graft TECHNIQUE: Duplex Doppler techn iques with waveform analysis and measurement of velocities in the bilateral common femoral, profunda femoris, superficial femoral, popliteal and tibial arteries were performed. Additionally, ankle pulse volume recordings, ankle pressure measurements and ank le brachial indices were obtained of the lower extremity arterial s ystem bilaterally. The study was performed only at [...] proximity to the occluded distal right superficial fe moral artery with velocity of 50 cm/s and [...] right superficial femoral artery. 3. Occluded right pe roneal artery. 4. Elevated velocity of the right common femoral artery suggestive of moderate stenosis. 5. Diffuse decrease in velocity and monophasic waveforms from the proximal right super ficial femoral artery to the patent below the [...] normal velocity and waveform. 3. Occluded left per ornelas artery. 4. Monophasic wavefo rm of the posterior tibial artery. 5. Normal left ankle-brachial index of 0.97. AKI Reference: - >1.4 = calcified vessels [...] MD 09/23/2024 06:31 PM [facility] Dictated By: Twyla Beaver Signed By: <Electron ically signed by Twyla Beaver in OV> 09/23/24 1831 DD/ 1133 TD/TT: 08/22/24 1210 Bartender Manager: US abdomen complete Reviewed date:02/16/2025 05:27:55 AM Interpretation: Performing Lab: Notes/Report: [address] [address] Ultrasound Report Signed Patient: Sid Landeros MR#: [id number] : 1960 Acct:[id number] Age/Sex: 64 / M ADM Date: 11/29/24 Loc: HO.US Attending Dr: Wen Diaz MD Ordering Physician: Wen Diaz MD Date of Service: 11/29/24 Procedure(s): US abdomen complete Accession Number(s): [id number] cc: Ashish Huertas MD; Wen Diaz MD [...] 11/30/24 0739 DD/ 1033 TD/TT: 11/29/24 1054 Bartender Manager: [place] [address] Ultrasound Report Signed Patient: Marlo Landeros MR#: [id number] : 1960 Acct:[id number] Age/Sex: 64 / M ADM Date: 11/29/24 Loc: HO.US Attending Dr: Wen Diaz MD Ordering Physician: Wen Diaz MD Date of Service: 11/29/24 Procedure(s): US abd omen complete Accession Number(s): [id number] cc: Ashish Huertas MD; Wen Diaz MD EXAMINATION: US ABDOMEN COMPLETE CLINICAL INFORMATION: Abnormal LFTs.. COMPARISON: None available. TECHNIQUE: Real-time imaging of the abdominal viscera. FINDINGS: PANCREAS: Visualized portions are unremarkable. ABDOMINAL AORTA: The proximal, mid, and distal segments are normal in caliber. INFERIOR VENA CAVA: Visualized portions are normal. LIVER: The liver is normal in size. The liver contour is normal. Parenchymal echogeni city is normal. No focal hepatic lesion. There is no intrahepatic bili federico duct dilatation seen. GALLBLADDER: There i s nonmobile bilateral multiple echogenic nonshadowing lesions along the inner gallbladder wall suggestive polyps. The largest measuring 1.0 x 0.6 x 0.7 cm. No echogenic stone or wall thickening. The wall thickness is 0.2 cm. COMMON BILE DUCT: No rmal in caliber measuring 0.2 cm in diameter. [...] cm in maximum dimension. FREE FLUID: None. U S/US abdomen complete IMPRESSION: Gallbladder polyps. No echogenic gallstones are wall thickening. Electronically julio c d by: Naman Roth MD 11/30/2024 07:39 AM [facility] Dictated By: Mr swathi Roth MD Signed By: <Electron icablanca signed by Naman Roth MD in OV> 11/30/24 0739 DD/ 1033 TD/TT: 11/29/24 1054 Bartender Manager: ABEL Gram stain Reviewed date:06/19/2025 05:40:55 AM Interpretation: Performing Lab:[facility], [address] [place] [phone] Notes/Report: Gram stain Gram stain results: Gram stain No polys Gram stain 1+ epithelial cells Gram stain 1+ Gram-positive cocci Gram stain 1+ Gram-positive rods Complete Blood Count Auto Di ff Reviewed date:06/19/2025 05:40:55 AM Interpretation: Performing Lab:[facility], [address] [place] [phone] Notes/Report: White Blood Count 4.1 4.8-10.8 X10*3/uL [...] 0.0-0.2 /100WBC Neutrophils Absolute Auto 2.4 2.0-8.3 x10*3/uL Imm Gran Abs Auto 0.05 0.00-0.03 X10*3/uL Lymphocytes Absolute Auto 0.9 1.2-4.9 X10*3/uL Monocytes Absolute Auto 0.7 0.1-1.2 X10*3/uL Eosinophils Absolute Auto 0.0 0.0-0.4 X10*3/uL Basophils Absolute Auto 0.0 0.0-0.2 X10*3/uL NRBC Abs Auto 0.000 0.0-0.012 X10*3/uL Comprehensive [place]. Panel Fa st Reviewed date:06/19/2025 05:40:55 AM Interpretation: Performing Lab:[facility], [address] [place] [phone] Notes/Report: Sodium 132 135-145 mmol/L Potassium 4.3 [...] Panel Reviewed date:06/19/2025 05:40:55 AM Interpretation: Performing Lab:[address] [address] Notes/Report: Triglycerides 55 <150 mg/dL Desirable Triglyceride: [...] Antigen Reviewed date:06/19/2025 05:40:55 AM Interpretation: Performing Lab:[address] [address] Notes/Report: Prostate Specific Antigen 1.08 <0.05-4.0 ng/mL PSA methodology: Coyne Alinity i Chemiluminescent Microparticle Immunoassay (CMIA) US abdomen limited Reviewed date:06/19/2025 05:40:55 AM Interpretation: Performing Lab: Notes/Report: [address] [address] Ultrasound Report Signed Patient: Sid Landeros MR#: [id number] : 1960 Acct:[id number] Age/Sex: 64 / M ADM Date: 06/05/25 Loc: HO.US Attending Dr: Victor Manuel Calderón MD Ordering Physician: Victor Manuel Calderón MD Date of Service: 06/05/25 Procedure(s): US abdomen limited Accession Number(s): [id number] cc: Ashish Huertas MD; Victor Manuel Calderón [...] in OV> 06/05/25844 DD/ 1 TD/TT: 06/05/25812 Bartender Manager: [place] [address] Ultrasound Report Signed Patient: Marlo Landeros MR#: [id number] : 1960 Acct:[id number] Age/Sex: 64 / M ADM Date: 06/05/25 Loc: HO.US Attending Dr: Callie Meier MD Ordering Physician: Victor Manuel Calderón MD Date of Service: 06/05/25 Procedure(s): US abd omen limited Accession Number(s): [id number] cc: Ashish Huertas MD; Victor Manuel Calderón [...] size. The left lobe of the liver me asures 15.7 cm in size. The liver demonstrates [...] wall may represent adenomyomatosis. The gallbladder is other finch unremarkable, without evidence of calculi, wall thickening, or pericholecystic fluid. There is no sonographic Son sign. The com mon bile duct is normal in caliber measuring 3 mm. Right Kidney: The ri ght kidney measures 11.7 cm in length. The right kidney is unremarkab le, without evidence of masses, hydronephrosis, or calculi. Pancreas: The pancre atic head, neck, and body are unremarkable. The pancreatic tail is obscured by bowel gas. Abdominal aorta and inferior vena cava: The visualized portions of the abdominal aorta and inferior vena cava are normal in caliber. There is no free flu id in the right upper quadrant. U S/US abdomen limited IMPRESSION: Stable gallbladder p olyps. Possible adenomyomatosis of the gallbladder. Electronically julio c d by: Ashish Manriquez MD 06/05/2025 08:45 AM EDT Dictated By: Ashish Manriquez MD Signed By: <Bernie crain signed by Ashish Manriquez MD in OV> 06/05/2545 DD/ 1 TD/TT: 06/05/25812 Bartender Manager: Complete Blood Count Auto Di ff Reviewed date:06/19/2025 05:40:55 AM Interpretation: Performing Lab:[facility], [address] [place] [phone] Notes/Report: White Blood Count 5.6 4.8-10.8 X10*3/uL [...] 0.0-0.2 /100WBC Neutrophils Absolute Auto 4.1 2.0-8.3 x10*3/uL Imm Gran Abs Auto 0.01 0.00-0.03 X10*3/uL Lymphocytes Absolute Auto 0.8 1.2-4.9 X10*3/uL Monocytes Absolute Auto 0.6 0.1-1.2 X10*3/uL Eosinophils Absolute Auto 0.0 0.0-0.4 X10*3/uL Basophils Absolute Auto 0.0 0.0-0.2 X10*3/uL NRBC Abs Auto 0.000 0.0-0.012 X10*3/uL Therapeutic Phlebotomy Reviewed date:06/19/2025 05:40:55 AM Interpretation: Performing Lab:[facility], [address] [place] [address] Notes/Report: THER/HGB TNP 14.0-18.0 g/dL Lab Results on file. Performed at [facility] on 06/14/25: Hgb: 14.5 g/dl Hct: 39.6 % THER/HCT TNP 42.0-52.0 % Therapeutic Phlebotomy Phlebotomy Performed 500 mls drawn on 06/14/25. Please note that a copy of this report has been sent to the Primary Care Physician, the ordering physician and any physician designated by patient request. US arterial duplex BI w/ KAI Reviewed date:06/24/2025 07:45:19 PM Interpretation: Performing Lab: Notes/Report: [address] [address] Ultrasound Report Signed Patient: Sid Landeros MR#: [id number] : 1960 Acct:[id number] Age/Sex: 64 / M ADM Date: 06/22/25 Loc: HO.US Attending Dr: Jhony Orr MD Ordering Physician: Jhony Orr MD Date of Service: 06/22/25 Procedure(s): US arterial duplex BI w/ KAI Accession Number(s): [id number] cc: Ashish Huertas MD; Jhony Orr MD [...] 06/22/25 1536 DD/ 1428 TD/TT: 06/22/25 1504 Bartender Manager: [place] [address] Ultrasound Report Signed Patient: Marlo Landeros MR#: [id number] : 1960 Acct:[id number] Age/Sex: 64 / M ADM Date: 06/22/25 Loc: HO. Attending Dr: Jhony Orr MD Ordering Physician: Jhony Orr MD Date of Service: 06/22/25 Procedure(s): US art erial duplex BI w/ KAI Accession Number(s): [id number] cc: Ashish Huertas MD; Jhony Orr MD Reason for Exam: I73 .9 - Peripheral vascular disease, unspecified EXAMINATION: Noninvasive assessme nt of the bilateral lower extremities with ARTERIAL DUPLEX, ANKLE BRACHI AL INDICES (ABIs), and PULSE VOLUME RECORDINGS (PVRs). CLINICAL INFORMATION: I73.9. Peripheral va scular disease. Left femoropopliteal bypass.. TECHNIQUE: Duplex Doppler techn iques with waveform analysis and measurement of velocities in the bilateral common femoral, profunda femoris, superficial femoral, popliteal and tibial arteries were performed. Additionally, ankle pulse volume recordings, ankle pressure measurements and ank le brachial indices were obtained of the lower extremity arterial s ystem bilaterally. The study was performed only at rest. COMPARISON: August 22, 2024. FINDINGS: Calcified plaques. DIRECT DUPLEX DOPPLE R FINDINGS: RIGHT LEG: Common femoral arter y: 161 cm/s, phasicity: Triphasic. Profunda femoris art floyd: 71 cm/s, phasicity: Triphasic. Spectral broadening. Superficial femoral artery (proximal): 80 cm/s, phasicity: Triphasic. Spectral broadening. Superficial femoral artery (mid): 45 cm/s, phasicity: Biphasic. Spectral broadening. Superficial femoral artery (distal): 15 cm/s, phasicity: Monophasic. Spectral broadening. Popliteal artery: 11 cm/s, phasicity: Monophasic. Spectral broadening. Posterior tibial art floyd: 20 cm/s, phasicity: Monophasic. Peroneal artery: 40 cm/s, phasicity: Monophasic. Spectral broadening. Anterior tibial tenisha ry: 19 cm/s, phasicity: Monophasic. Spectral broadening. Dorsalis pedis arter y: 6 cm/s, phasicity:Monophasic. Spectral broadening. LEFT LEG: Common femoral arter y: 222 cm/s, phasicity: [Triphasic. Spectral broadening. Profunda femoris art floyd: 75 cm/s, phasicity: Biphasic. Popliteal artery: 57 cm/s, phasicity: [Triphasic. Posterior tibial art floyd: 113 cm/s, phasicity: Biphasic. Peroneal artery: 62 [...] 64 cm/s and triphasic waveform. Distal anastomosis s ite: 79 cm/s and triphasic waveform. Outflow artery: 57 c m/s and biphasic waveform. BRACHIAL PRESSURES: Right: 143 Left: 142 ANKLE PRESSURES: Right: PT 102, DP no t recorded. Left: PT 136, DP 145 ANKLE-BRACHIAL INDEX: Right: 0.71 Left: 0.99. ANKLE PVR WAVEFORMS: Right: Abnormal Left: Abnormal U S/US arterial duplex BI w/ KAI IMPRESSION: Right: [...] = mode rate peripheral arterial disease - 0.50 = severe rafi pheral arterial disease - < .30 = critical arterial disease Electronically julio c d by: Frederick Garcia MD 06/22/2025 03:36 PM EDT RP Dictated By: Frederick Yee MD Signed By: <Electron ically signed by Frederick Kirk MD in OV> 06/22/25 1536 DD/ 1428 TD/TT: 06/22/25 1505 Bartender Manager: Electrolytes Reviewed date:07/08/2025 06:23:51 AM Interpretation: Performing Lab:[facility], [address] [place] [phone] Notes/Report: Sodium 136 135-145 mmol/L Potassium 3.6 3.3-5.1 mmol/L Chloride 103 96-108 mmol/L Carbon Dioxide 25 22-29 mmol/L Anion Gap 12 12-20 Pathology Reviewed date:07/08/2025 06:23:51 AM Interpretation: Performing Lab:[facility], [address] [place] [phone] Notes/Report: ------ Name: Sid Landeros Age/Sex: 64/M : 1960 Unit#: [id number] Attend Dr: Henry Packer MD Re06/29/25 Status : [facility] Location: [facility] Disch: ------ SPEC : [id number] RECD : 06/30/25 STATUS: FRANK GEE NUM: [id number] PILY: 06/29/[address] [facility] [address]: Henry Packer MD ENTERED: 06/30/25 50 SP TYPE: Surgical OTHR DR: Ashish Huertas MD ORDERED: Gross Micro L3 Diagnosis Gallbladder, cholecystectomy: Chronic cholecystitis. Clinical History Cholesterolosis of gallbladder Microscopic Description Microscopic sections reviewed. Material Received Gallbladder Gross Description Received in formalin labeled ?gallbladder? is an intact gallbladder measuring 8.4 x 4.2 x 2.9 cm. The serosal surface is green pink and smooth with adherent yellow adipose tissue. The hepatic bed is roughened shaggy with cautery artifact. The cystic duct and cystic artery had been clam ped shut. There is no periductal lymph node identified. Opening the specimen reveals higinio t the lumen contains a copious amount of dark green bile. No choleliths are identified. Afte r evacuation of the contents the mucosal surface is dark green in color with a velvety appea sanjiv. The wall measures 0.2 cm in average thickness. Crude Oil Driver sections of the duct , neck and body of the specimen are submitted for microscopic examination, 3 piece s in cassette A1. ([facility]) IHC S/NG Disclaimer NOTE: Unless otherwi se stated, all tissue is formalin-fixed and paraffin-embedded. Some or all of the immunohistochemical tests reported herein may have been developed and their performance characteristics determined by [facility]. They have not been cleared or appr fermin by the U.S. Food and Drug Administration (FDA). However, the FDA has determined that such clearance or approval is not necessary. This laboratory is certified under the Clinical Laboratory Improvement Amendments of 1988 (CLIA) as qualified to perform high comp lexity clinical laboratory testing. Copies To: Ashish Huertas MD [address] [place] [address], [facility] [address] [place], [place] [id number] CONTINUED ON NEXT PAGE ------ Name: Sid Landeros Age/Sex: 64/M : 1960 Unit#: [id number] Attend Dr: Henry Packer MD Re06/29/25 Status : [facility] Location: [facility] Disch: ------ SPEC : [id number] RECD : 06/30/25 STATUS: FRANK MARLEN NUM: [id number] PILY: 06/29/[address] [facility] [address]: Henry Packer MD ENTERED: 06/30/25 50 SP TYPE: Surgical OTHR DR: Ashish Huertas MD ORDERED: Gross Micro L3 Copies To: (Continued) Henry Packer MD [facility] [address] [place] [id number] ------ Signed (signature on file) Geovanna Quezada MD 07/04/25 0932 ------ END OF REPORT Reason For Referral No Information Medications Medication [...] Status W/U Status Risk Notes Problem Hyperlipidemia (15173983) Hyperlipidemia (E78.5) Active confirmed Comprehensive blood work with a fasting lipid profile is being done periodically. Problem 706866831 Overweight (E66.3) Active confirmed His body mass index is now 23.6 and this problem has resolved. Problem Hypertension (63573467) Hypertension (I10) Active confirmed His blood pressure has been 134/77. No change in his regimen was made. I encouraged him to pursue aggressive sodium restriction. He was given an appointment to come to the office and recheck his blood pressure.He will continue on the losartan given by cardiology. Problem 91944344 Porphyria cutanea tarda (E80.1) Active confirmed The diagnosis o f porphyria was made by a railroad passenger agent at [facility]. He affirms that if he goes into direct sunlight. He will experience blisters and skin lesions. He is well versed in how to prevent this and has medications for his skin. Problem 324774105 Other hemochromatosis (E83.118) Active confirmed We will resume the phlebotomy at one-month intervals until he is iron deficient and than every 4 months. Problem 442370739 Acute bronchitis due to other specified organisms (J20.8) Active confirmed He is producing green phlegm and says he is wheezing. The inhaler is helping. He was given a Zithromax and prednisone with a follow-up visit. Problem Benign prostatic hyperplasia (943269737) BPH (benign prostatic hyperplasia) (N40.0) Active confirmed He arises from sleep about once a night to urinate. We have discussed lifestyle modifications he could make to reduce this. Problem 90933085 Tobacco dependence (F17.200) Active confirmed He continues to smoke a package of cigarettes every day. We discussed the health consequences of this. His COPD has been stable and inactive recently. I made him aware of the smoking cessation programs and the local hospitals and this community. Problem COPD - Chronic obstructive pulmonary disease (02453551) COPD (chronic obstructive pulmonary disease) (J44.9) Active [...] lung cancer, COPD, oxygen dependence, etc. Problem 606961488 Ear infection (H66.90) Active confirmed He has complete d a course of antibiotics for the skin inflammation on each year. A repeat culture grew only Tereza. The appearance is much improved. Problem 07206360 Viral syndrome (B34.9) Active confirmed I'm going to speak to him on a daily basis because of the risk of progression of respiratory disease. He has continued to smoke and has COPD. He will continue to use his inhalers as directed. If necessary he will be given oral prednisone and an antibiotic. Problem 11342103 Pilonidal cyst (L05.91) Active confirmed He had an excision and repair of this cyst years ago. It is healed and no longer bothers him. Problem 015735305 Peripheral arterial disease (I73.9) Active confirmed His claudicatio n is stable at 1 block. He recently saw the vascular surgeon. He recently underwent a revision of his left femoral-popliteal bypass graft. The wound is now healed. He experiences some claudication in his right leg and is able to walk one block without stopping to rest. Problem 032664204 Age-related incipient cataract of both eyes (H25.093) Active confirmed He is schedul ed for cataract extraction sequentially later this month. I have taken. A careful history and examined him thoroughly. There is no contraindication to surgery at this time. The benefit is great in the risk is small. He is given medical clearance for both procedures. Problem 409246473 Lumbar radiculopathy, right (M54.16) Active confirmed He continues to have pain that comes from his lower lumbar spine and right paravertebral muscles that radiates into his right buttock. X-rays have shown degenerative disease. The pain is aggravated with walking more than 10 feet and lifting more than 10 pounds. He has been referred to [facility] for physical therapy injections imaging and evaluation for surgery. Problem 62151934 Acute diffuse otitis externa of both ears (H60.313) Active confirmed The left ear wa s primarily involved. The otic canalWas uninvolved. The tympanic membrane was normal. A prescription for Bactrim was given to him. Problem 84283588 Staphylococcus infection (B95.8) Active confirmed This seems [...] Date Provider Diagnosis Ashish Huertas III, MD [address] [place] [address] [place] [phone] 08/02/2024 Ashish Huertas Infection of pelvis M86.9 ; Peripheral arterial disease I73.9 ; COPD (chronic obstructive pulmonary disease) J44.9 ; Lumbar radiculopathy, right M54.16 ; BPH (benign prostatic hyperplasia) N40.0 and Hypertension I10 Ashish Huertas III, MD [address] [place] [address] [place] [phone] 08/15/2024 Ashish Huertas Infection of pelvis M86.9 ; Hypertension I10 ; BPH (benign prostatic hyperplasia) N40.0 ; COPD (chronic obstructive pulmonary disease) J44.9 ; Peripheral arterial disease I73.9 and Lumbar radiculopathy, right M54.16 Ashish Huertas III, MD [address] [place] [address] [place] [address] 10/28/2024 Ashish Huertas Hypertension I10 ; C OPD (chronic obstructive pulmonary disease) J44.9 ; BPH (benign prostatic hyperplasia) N40.0 ; Peripheral arterial disease I73.9 ; Tobacco dependence F17.200 ; Porphyria cutanea tarda E80.1 ; Lumbar radiculopathy, right M54.16 and Overweight E66.3 Ashish Huertas III, MD [address] [place] [address] [place] [address] 11/15/2024 Ashish Huertas Acute bronchitis due to other specified organisms J20.8 ; COPD (chronic obstructive pulmonary disease) J44.9 ; Tobacco dependence F17.200 ; Lumbar radiculopathy, right M54.16 ; Porphyria cutanea tarda E80.1 ; Hyperlipidemia E78.5 ; Hypertension I10 and Peripheral arterial disease I73.9 Ashish Huertas III, MD [address] [place] [address] [place] [address] 01/10/2025 Ashish Huertas Acute diffuse otitis externa of both ears H60.313 ; Lumbar radiculopathy, right M54.16 ; Hypertension I10 ; BPH (benign prostatic hyperplasia) N40.0 ; Peripheral arterial disease I73.9 ; Tobacco dependence F17.200 ; Porphyria cutanea tarda E80.1 and COPD (chronic obstructive pulmonary disease) J44.9 Ashish Huertas III, MD [address] [place] [address] [place] [address] 01/18/2025 Ashish Huertas Acute bronchitis due to other specified organisms J20.8 ; Hypertension I10 ; BPH (benign prostatic hyperplasia) N40.0 ; COPD (chronic obstructive pulmonary disease) J44.9 ; Peripheral arterial disease I73.9 and Lumbar radiculopathy, right M54.16 Ashish Huertas III, MD [address] [place] [address] [place] [address] 01/23/2025 Ashish Huertas Viral syndrome B34.9 ; COPD (chronic obstructive pulmonary disease) J44.9 ; Hypertension I10 ; BPH (benign prostatic hyperplasia) N40.0 ; Peripheral arterial disease I73.9 ; Tobacco dependence F17.200 ; Porphyria cutanea tarda E80.1 and Lumbar radiculopathy, right M54.16 Ashish Huertas III, MD [address] [place] [address] [place] [id number] 02/14/2025 Ashish Huertas Staphylococcus infec tion B95.8 ; Hypertension I10 ; BPH (benign prostatic hyperplasia) N40.0 ; COPD (chronic obstructive pulmonary disease) J44.9 ; Peripheral arterial disease I73.9 ; Lumbar radiculopathy, right M54.16 ; Tobacco dependence F17.200 and Porphyria cutanea tarda E80.1 Ashish Huertas III, MD [address] [place] [address] [place] [id number] 02/28/2025 Ashish Huertas BPH (benign prostati c hyperplasia) N40.0 ; Age-related incipient cataract of both eyes H25.093 ; Overweight E66.3 ; Hyperlipidemia E78.5 ; Ear infection H66.90 and COPD (chronic obstructive pulmonary disease) J44.9 Ashish Huertas III, MD [address] [place] [address] [place] [id number] 06/07/2025 Ashish Huertas Tobacco dependence F17.200 ; Other hemochromatosis E83.118 ; COPD (chronic obstructive pulmonary disease) J44.9 ; Hypertension I10 ; BPH (benign prostatic hyperplasia) N40.0 and Pilonidal cyst L05.91 Ashish Huertas III, MD [address] [place] [address] [place] [address] 10/04/2024 Ashish Huertas 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 He has been referred to [facility] medicine for [...] 10 pounds. He has been referred to [facility] in [facility] for physical therapy injections [...] 10 pounds. He has been referred to [facility] in [facility] for physical therapy injections imaging and [...] diagnosis of porphyria was made by a railroad passenger agent at [facility]. He affirms [...] 10 pounds. He has been referred to [facility] medicine for physical therapy injections imaging and evaluation for surgery. 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 He affirms [...] 10 pounds. He has been referred to [facility] in [facility] for physical therapy injections [...] 10 pounds. He has been referred to [facility] for physical therapy injections imaging and [...] 10 pounds. He has been referred to [facility] medicine for [...] diagnosis of porphyria was made by a railroad passenger agent at [facility]. He affirms that if he goes into direct sunlight. He will experience blisters and skin lesions. He is well versed in how to prevent this and has medications for his skin. 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 He affirms [...] 10 pounds. He has been referred to [facility] medicine for physical therapy injections imaging and evaluation for surgery. 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 He affirms [...] Provider Name:Ashish Huertas , 09/06/2025 10:30:00 AM, [address] [place] [address] [address], [place], [phone], Provider Name:Ashish Huertas , 10/31/2025 02:00:00 PM, [address] [place] [address] [address], [place], [id number], Insurance Providers Payer Name Payer Address Payer Phone Subscriber Number Group Number Insured Name Patient Relationship to Insured Coverage Start Date Coverage End Date [facility] [address] [place], [place] [id number] Sid Landeros Self - patient is the insured [address] [place] [address] [id number] Sid Landeros Self - patient is the insured Medical (General) History Medical History History ICD Code COPD (chronic obstructive pulmonary dise ase) J44.9 Hypertension I10 Erectile dysfunction Peripheral vascular disease Environmental allergies History of repaired pilonidal cyst Excised lipoma, left triceps, age 8 Porphyria cutanea [place]urt[place], Dr. Brady, [facility] Tobacco dependence Covid19 infection 2021 Lumbar [...] Date(Month/Year) No history Arterial Bipass 05/2022 Colonoscopy, [facility], Dr. Ramos Fracture of 2 fingers Repair of pilonidal cyst Excision of lipoma, left triceps, age 8 Esophagogastricduodoscopy Femoral -popliteal arterial bypass @[facility] [place] 05/2022 Hospitalization History Reason Date(Month/Year)
--- OUTSIDE RECORDS SUMMARY | 2025-07-25 12:30 | XMS_ITS | Clinical Summary ---
Author Organization [facility] Address [address] [place] [address] Care Team Providers Care Hydraulic Repairer Name Role Phone Goldie Watkins MD Primary [...] age to complete this topic Care Teams Hydraulic Repairer Relationship Specialty Start Date End Date Goldie Watkins MD [address] [place] [address] , [address] [facility] D/B/A: [facility] [place] [id number] PCP - General Internal Medicine 06/08/17
== END 2025-07-25 11:00 | disposition home or self-care (01) ==
LOC: HO.HVS 10:14
PROVIDERS: PCP Internal Medicine Medical Oncology; Visit Provider Surgery Vascular Surgery
DX: I73.9 Peripheral vascular disease, unspecified (principal)
CPT/HCPCS: 99214

== ENCOUNTER 2025-07-27 08:52 | Day surgery (SDC) | payer BC, OTHER, SELFPAY ==
--- OUTSIDE RECORDS SUMMARY | 2025-02-14 10:00 | XMS_ITS ---
Author Organization Ashish Huertas III, MD Address [address] [place] [address] Care Team Providers Care Nylon Hot Wire Cutter Name Role Phone Dr. Ashish Huertas III Primary Care Provider Allergies Allergen (clinical drug ingredient) Drug/Non Drug Allergy documented on EMR Reaction Allergy Type Onset Date Status doxycycline Doxycycline Unknown Drug Allergy Act henrry Results Component Value Reference Range Notes Routine Culture Reviewed date:06/19/2025 05:40:55 AM Interpretation: Performing Lab:[facility], [address] [place] [phone] Notes/Report: Routine Culture Report - external Routine [...] Problem Status W/U Status Risk Notes Problem [id number] Staphylococcus infection (B95.8) Active confirmed This seems [...] Provider Diagnosis Ashish Huertas III, MD [address] [place] [address] [place] [address] 02/14/2025 Ashish Huertas Staphylococcus infec tion B95.8 [...] 10 pounds. He has been referred to [facility] spine and sports rehabilitation medicine [...] diagnosis of porphyria was made by a cop breaker at [facility]. He affirms that if he goes [...] Provider Name:Ashish Huertas , 09/06/2025 10:30:00 AM, [address] [place] [address] [address], [place], [phone], Provider Name:Ashish Huertas , 10/31/2025 02:00:00 PM, [address] [place] [address] [address], [place], [phone], Progress Notes * Sid LANDEROS MDOB: 2 (64 yo M)Acc No.[id number]:02/14/2025 Progress Notes Patient: Logan AUGUSTIN Sid Mili Provider: Frantz Huertas MD :1960 A ge:64 Y S ex:Male Date:02/14/2025 Address:[address] [place] [address] NINI [id number] Subjective: * Chief Complaints: * b ilateral [...] Surgical History: F emoral -popliteal arterial bypass @[facility] [place] 05/2022Esophagogastricduodoscopy Excision of lipoma, left triceps, age 8 Repair of pilonidal cyst Fracture of 2 fingers Colonoscopy, [facility], Dr. Ramos Arterial Bipass 05/2022No history [...] 10 pounds. He has been referred to [facility] spine and sports rehabilitation medicine [...] diagnosis of porphyria was made by a cop breaker at [facility]. He affirms that if he goes [...] 0 02/14/2025 Generated for Vanessa rodriguez/Namita/eTanilsmitting on: 0 06/27/2025 04:10 PM EDT History and Physical Notes * [...]
--- OUTSIDE RECORDS SUMMARY | 2025-02-28 11:30 | XMS_ITS ---
Author Organization Ashish Huertas III, MD Address [address] [facility] [address] [place] [address] Care Team Providers Care Filbert Grower Name Role Phone Dr. Ashish Huertas III Primary Care Provider [phone] Allergies Allergen (clinical drug ingredient) Drug/Non Drug [...] Problem Status W/U Status Risk Notes Problem [id number] Ear infection (H66.90) Active confirmed He has complete d a course of antibiotics for the skin inflammation on each year. A repeat culture grew only Tereza. The appearance is much improved. 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) [...] Date Provider Diagnosis Ashish Huertas III, MD [address] [place] [address] [place] [address] 02/28/2025 Ashish Huertas BPH (benign prostati c [...] Name:Ashish Huertas , 09/06/2025 10:30:00 AM, [address] [facility] [address], [place], [address], Provider Name:Ashish Huertas , 10/31/2025 02:00:00 PM, [address] [place] [address] [address], [place], [address], Progress Notes * Sid LANDEROS MDOB: 2 (64 yo M)Acc No.[id number]:02/28/2025 Patient: Sid COBOS Provider: Frantz Huertas MD :1960 A ge:64 Y S ex:Male Date:02/28/2025 Address:[address] [place] [address] KEVIN, [place] ANTUNEZXL-[id number] Subjective: * Chief Complaints: * M edical [...] Surgical History: F [place]opl[place]al [place] [place]Esophagogastricduodoscopy Excision of lipoma, left triceps, age 8 Repair of pilonidal cyst Fracture of 2 fingers Colonoscopy, [facility], Dr. Ramos Arterial Bipass 05/2022No history [...] 02/28/2025 Generated for Vanessa rodriguez/Namita/Braydensmitting on: 0 06/27/2025 04:09 PM EDT History and Physical Notes * [...]
--- OUTSIDE RECORDS SUMMARY | 2025-04-07 05:42 | XMS_ITS ---
Author Organization Ashish Huertas III, MD Address [address] [facility] [address] Care Team Providers Care Wired Sweatband Cutter Name Role Phone Dr. Ashish Huertas III Primary Care Provider [phone] REASON FOR VISIT Needs call back from Social History Sex Assigned At : Social History Observation Description Sex Assigned At Male Encounters Encounter Location Date Provider Diagnosis Ashish Huertas III, MD [address] [place] [address] [place] [address] 04/07/2025 Ashish Huertas Plan Of Treatment Next Appt Details Provider Name:Ashish Huertas , 09/06/2025 10:30:00 AM, [address] [place] [address] [place], [phone], Provider Name:Ashish Huertas , 10/31/2025 02:00:00 PM, [address] [place] [address] [place], [address], Progress Notes * Sid LANDEROS MDOB: 2 (64 yo M)Acc No.[id number]:04/07/2025 Patient: Logan MALLORYSUPRIYASid :1960 A ge:64 Y S ex:Male Address:[address] [place], [address] * true * Date: Generated for Printi ng/Faxing/eTransmitting on: 0 06/27/2025 04:09 PM EDT
--- OUTSIDE RECORDS SUMMARY | 2025-06-02 05:00 | XMS_ITS ---
Author Organization Ashish Huertas III, MD Address [address] [address] [place] [address] Care Team Providers Care Learning Coach Name Role Phone Dr. Ashish Huertas III [...] Provider Diagnosis Ashish Huertas III, MD [address] [place] [address] [place] [address] 06/02/2025 Ashish Huertas Plan Of Treatment Medication [...] Provider Name:Ashish Huertas , 09/06/2025 10:30:00 AM, [address] [place] [address] [address], [place], [address], Provider Name:Ashish Huertas , 10/31/2025 02:00:00 PM, [address] [place] [address] [place], [address], Progress Notes * Sid LANDEROS MDOB: 2 (64 yo M)Acc No.[id number]:06/02/2025 Progress Notes Patient: Sid COBOS Provider: Frantz Huertas MD :1960 A ge:64 Y S ex:Male Date:06/02/2025 Address:[address] [place] [address], [place]-[id number] Subjective: * Chief Complaints: * 1 . [...] age 8, Porphyria cutanea tarda, Dr. Brady, [facility], Tobacco dependence, Covid19 infection 2021, Lumbar [...] Surgical History: F emoral -popliteal arterial bypass @[facility] 05/2022, Esophagogastricduodoscopy , Excision of lipoma, left triceps, age 8 , Repair of pilonidal cyst , Fracture of 2 fingers , Colonoscopy, [facility], Dr. Ramos , Arterial Bipass 05/2022, [...] Date: 06/02/2025 Generated for Elmeri michael/Namita/Reyitting on: 06/27/2025 04:09 PM EDT History and Physical [...]
--- OUTSIDE RECORDS SUMMARY | 2025-06-07 11:00 | XMS_ITS ---
Author Organization Ashish Huertas III, MD Address [address] [place] [address] Care Team Providers Care Straightening Roll Operator Name Role Phone Dr. Ashish Huertas III Primary Care Provider Allergies Allergen (clinical drug ingredient) Drug/Non Drug Allergy documented on EMR Reaction Allergy Type Onset Date Status doxycycline Doxycycline Unknown Drug Allergy Act henrry Results Component Value Reference Range Notes Ferritin Reviewed date:06/19/2025 05:40:55 AM Interpretation: Performing Lab:[facility], [address] [place] [phone] Notes/Report: Ferritin 68 20-250 ng/mL REASON FOR [...] Problem Status W/U Status Risk Notes Problem [id number] Other hemochromatosis (E83.118) Active confirmed We will [...] Date Provider Diagnosis Ashish Huertas III, MD [address] [place] [address] [place] [address] 06/07/2025 Ashish Huertas Tobacco dependence F17.200 ; [...] Provider Name:Ashish Huertas , 09/06/2025 10:30:00 AM, [address] [place] [address] , [address], [place], [address], Provider Name:Ashish Escobedorne , 10/31/2025 02:00:00 PM, [address] [place] [address] [address], [place], [address], Progress Notes * Sid LANDEROS MDOB: 2 (64 yo M)Acc No.[id number]:06/07/2025 Progress Notes Patient: Sid COBOS Provider: Frantz Huertas MD :1960 A ge:64 Y S ex:Male Date:06/07/2025 Address:[address] [place] [address], [id number] Subjective: * Chief Complaints: * O titisCOPDHypertensionPorphyriaTobacco [...] [place]Esophagogastricduodoscopy Excision of lipoma, left triceps, age 8 Repair of pilonidal cyst Fracture of 2 fingers Colonoscopy, [facility], Dr. Ramos Arterial Bipass 05/2022No history [...] Date: 06/07/2025 Generated for Vanessa rodriguez/Namita/Reyitting on: 06/27/2025 04:10 PM EDT History and Physical [...]
--- OUTSIDE RECORDS SUMMARY | 2025-06-27 16:10 | XMS_ITS | Clinical Summary ---
Author Organization [facility] Address [address] [place] [address] Care Team Providers Care Salon Supervisor Name Role Phone Goldie Watkins MD [...] age to complete this topic Care Teams Salon Supervisor Relationship Specialty Start Date End Date Goldie Watkins MD [address] [place] [address] , [address] [facility] D/B[facility]A: [facility] CARLOS Melendrez [id number] PCP - General Internal Medicine 06/08/17
--- OUTSIDE RECORDS SUMMARY | 2025-06-27 16:10 | XMS_ITS | Patient Health Record ---
Author Organization Ashish Huertas III, MD Address [address] [place] [address] Care Team Providers Care Consumer Insights Specialist Name Role Phone Dr. Ashish Huertas III Primary Care Provider [phone] Allergies Allergen (clinical drug ingredient) Drug/Non Drug [...] Culture Reviewed date:06/19/2025 05:40:55 AM Interpretation: Performing Lab:[facility], [address] [place] [phone] Notes/Report: Routine Culture Report - external Routine Culture 4+ Mixed skin wesley O:CANPAR Tereza parapsilosis Routine Culture Quant Org ID Routine Culture 2+ Ferritin Reviewed date:06/19/2025 05:40:55 AM Interpretation: Performing Lab:[facility], [address] [place] [phone] Notes/Report: Ferritin 68 20-250 ng/mL US arterial duplex BI w/ KAI Reviewed date:09/24/2024 07:13:25 AM Interpretation: Performing Lab: Notes/Report: [address] [address] Ultrasound Report Signed Patient: Sid Landeros MR#: [id number] : 1960 Acct:[id number] Age/Sex: 63 / M ADM Date: 08/22/24 Loc: . Attending Dr: Jhony Orr MD Ordering Physician: Jhony Orr MD Date of Service: 08/22/24 Procedure(s): US arterial duplex BI w/ KAI Accession Number(s): [id number] cc: Ashish Huertas MD; Jhony Orr MD [...] 09/23/24 1831 DD/ 1133 TD/TT: 08/22/24 1210 Calender Operator: [address] [address] Ultrasound Report Signed Patient: Marlo Landeros MR#: [id number] : 1960 Acct:[id number] Age/Sex: 63 / M ADM Date: 08/22/24 Loc: HO.US Attending Dr: Jhony Orr MD Ordering Physician: Jhony Orr MD Date of Service: 08/22/24 Procedure(s): US arterial duplex BI w/ KAI Accession Number(s): [id number] cc: Ashish Huertas MD; Jhony Orr MD [...] 09/23/24 1831 DD/ 1133 TD/TT: 08/22/24 1210 Calender Operator: US abdomen complete Reviewed date:02/16/2025 05:27:55 AM Interpretation: Performing Lab: Notes/Report: [place] [address] Ultrasound Report Signed Patient: Sid Landeros MR#: [id number] : 1960 Acct:[id number] Age/Sex: 64 / M ADM Date: 11/29/24 Loc: HO.US Attending Dr: Wen Diaz MD Ordering Physician: Wen Diaz MD Date of Service: 11/29/24 Procedure(s): US abdomen complete Accession Number(s): [id number] cc: Ashish Huertas MD; Wen Diaz MD [...] 11/30/24 0739 DD/ 1033 TD/TT: 11/29/24 1054 Calender Operator: [place] [address] Ultrasound Report Signed Patient: Marlo Landeros MR#: [id number] : 1960 Acct:[id number] Age/Sex: 64 / M ADM Date: 11/29/24 Loc: HO.US Attending Dr: Wen Diaz MD Ordering Physician: Wen Diaz MD Date of Service: 11/29/24 Procedure(s): US abdomen complete Accession Number(s): [id number] cc: Ashish Huertas MD; Wen Diaz MD [...] by: Naman Roth MD 11/30/2024 07:39 AM [facility] Dictated By: Naman Roth MD Signed By: <Electronically signed by Naman Roth MD in OV> 11/30/24 0739 DD/ 1033 TD/TT: 11/29/24 1054 Calender Operator: ABEL Gram stain Reviewed date:06/19/2025 05:40:55 AM Interpretation: Performing Lab:[address] [address] Notes/Report: Gram stain Gram stain results: Gram stain No polys Gram stain 1+ epithelial cells Gram stain 1+ Gram-positive cocci Gram stain 1+ Gram-positive rods Complete Blood Count Auto Di ff Reviewed date:06/19/2025 05:40:55 AM Interpretation: Performing Lab:[address] [address] Notes/Report: White Blood Count 4.1 4.8-10.8 X10*3/uL [...] NRBC Abs Auto 0.000 0.0-0.012 X10*3/uL Comprehensive [place]. Panel Fa st Reviewed date:06/19/2025 05:40:55 AM Interpretation: Performing Lab:[facility], [address] [place] [phone] Notes/Report: Sodium 132 135-145 mmol/L Potassium 4.3 [...] Panel Reviewed date:06/19/2025 05:40:55 AM Interpretation: Performing Lab:[address] [address] Notes/Report: Triglycerides 55 <150 mg/dL Desirable Triglyceride: [...] Antigen Reviewed date:06/19/2025 05:40:55 AM Interpretation: Performing Lab:[address] [address] Notes/Report: Prostate Specific Antigen 1.08 <0.05-4.0 ng/mL PSA methodology: Coyne Alinity i Chemiluminescent Microparticle Immunoassay (CMIA) US abdomen limited Reviewed date:06/19/2025 05:40:55 AM Interpretation: Performing Lab: Notes/Report: [address] [address] Ultrasound Report Signed Patient: Sid Landeros MR#: [id number] : 1960 Acct:[id number] Age/Sex: 64 / M ADM Date: 06/05/25 Loc: HO.US Attending Dr: Victor Manuel Calderón MD Ordering Physician: Victor Manuel Calderón MD Date of Service: 06/05/25 Procedure(s): US abdomen limited Accession Number(s): [id number] cc: Ashish Huertas MD; Victor Manuel Calderón [...] OV> 06/05/25 0845 DD/ 0802 TD/TT: 06/05/25812 Calender Operator: [address] [address] Ultrasound Report Signed Patient: Marlo Landeros MR#: [id number] : 1960 Acct:[id number] Age/Sex: 64 / M ADM Date: 06/05/25 Loc: HO.US Attending Dr: Callie Meier MD Ordering Physician: Victor Manuel Calderón MD Date of Service: 06/05/25 Procedure(s): US abdomen limited Accession Number(s): [id number] cc: Ashish Huertas MD; Victor Manuel Calderón [...] 06/05/25 0845 DD/ 08 TD/TT: 06/05/25 0813 Calender Operator: Complete Blood Count Auto Di ff Reviewed date:06/19/2025 05:40:55 AM Interpretation: Performing Lab:[facility], [address] [place] [phone] Notes/Report: White Blood Count 5.6 4.8-10.8 X10*3/uL [...] Phlebotomy Reviewed date:06/19/2025 05:40:55 AM Interpretation: Performing Lab:[facility], [address] [place] [address] Notes/Report: THER/HGB TNP 14.0-18.0 g/dL Lab Results on file. Performed at [facility] on 06/14/25: Hgb: 14.5 g/dl Hct: 39.6 % THER/HCT TNP 42.0-52.0 % Therapeutic Phlebotomy Phlebotomy Performed 500 mls drawn on 06/14/25. Please note that a copy of this report has been sent to the Primary Care Physician, the ordering physician and any physician designated by patient request. US arterial duplex BI w/ KAI Reviewed date:06/24/2025 07:45:19 PM Interpretation: Performing Lab: Notes/Report: [address] [address] Ultrasound Report Signed Patient: Sid Landeros MR#: [id number] : 1960 Acct:[id number] Age/Sex: 64 / M ADM Date: 06/22/25 Loc: .US Attending Dr: Jhony Orr MD Ordering Physician: Jhony Orr MD Date of Service: 06/22/25 Procedure(s): US arterial duplex BI w/ KAI Accession Number(s): [id number] cc: Ashish Huertas MD; Jhony Orr MD [...] 06/22/25 1536 DD/ 1428 TD/TT: 06/22/25 1504 Calender Operator: [place] [address] Ultrasound Report Signed Patient: Marlo Landeros MR#: [id number] : 1960 Acct:[id number] Age/Sex: 64 / M ADM Date: 06/22/25 Loc: HO.US Attending Dr: Jhony Orr MD Ordering Physician: Jhony Orr MD Date of Service: 06/22/25 Procedure(s): US arterial duplex BI w/ KAI Accession Number(s): [id number] cc: Ashish Huertas MD; Jhony Orr MD [...] 06/22/25 1536 DD/ 1428 TD/TT: 06/22/25 1504 Calender Operator: Reason For Referral No Information Medications Medication [...] Status W/U Status Risk Notes Problem Hyperlipidemia (69348275) Hyperlipidemia (E78.5) Active confirmed Comprehensive blood work with a fasting lipid profile is being done periodically. Problem 472289704 Overweight (E66.3) Active confirmed His body mass index is now 23.6 and this problem has resolved. Problem Hypertension (89464006) Hypertension (I10) Active confirmed His blood pressure has been 134/77. No change in his regimen was made. I encouraged him to pursue aggressive sodium restriction. He was given an appointment to come to the office and recheck his blood pressure.He will continue on the losartan given by cardiology. Problem 71633827 Porphyria cutanea tarda (E80.1) Active confirmed The diagnosis o f porphyria was made by a digitizer at [facility]. He affirms that if he goes into direct sunlight. He will experience blisters and skin lesions. He is well versed in how to prevent this and has medications for his skin. Problem 010190396 Other hemochromatosis (E83.118) Active confirmed We will resume the phlebotomy at one-month intervals until he is iron deficient and than every 4 months. Problem 826956519 Acute bronchitis due to other specified organisms (J20.8) Active confirmed He is producing green phlegm and says he is wheezing. The inhaler is helping. He was given a Zithromax and prednisone with a follow-up visit. Problem Benign prostatic hyperplasia (718555745) BPH (benign prostatic hyperplasia) (N40.0) Active confirmed He arises from sleep about once a night to urinate. We have discussed lifestyle modifications he could make to reduce this. Problem 90556166 Tobacco dependence (F17.200) Active confirmed He continues to smoke a package of cigarettes every day. We discussed the health consequences of this. His COPD has been stable and inactive recently. I made him aware of the smoking cessation programs and the local hospitals and this community. Problem COPD - Chronic obstructive pulmonary disease (08134023) COPD (chronic obstructive pulmonary disease) (J44.9) Active [...] lung cancer, COPD, oxygen dependence, etc. Problem 124924808 Ear infection (H66.90) Active confirmed He has complete d a course of antibiotics for the skin inflammation on each year. A repeat culture grew only Tereza. The appearance is much improved. Problem 90996524 Viral syndrome (B34.9) Active confirmed I'm going to speak to him on a daily basis because of the risk of progression of respiratory disease. He has continued to smoke and has COPD. He will continue to use his inhalers as directed. If necessary he will be given oral prednisone and an antibiotic. Problem 29378934 Pilonidal cyst (L05.91) Active confirmed He had an excision and repair of this cyst years ago. It is healed and no longer bothers him. Problem 335558919 Peripheral arterial disease (I73.9) Active confirmed His claudicatio n is stable at 1 block. He recently saw the vascular surgeon. He recently underwent a revision of his left femoral-popliteal bypass graft. The wound is now healed. He experiences some claudication in his right leg and is able to walk one block without stopping to rest. Problem 752499504 Age-related incipient cataract of both eyes (H25.093) Active confirmed He is schedul ed for cataract extraction sequentially later this month. I have taken. A careful history and examined him thoroughly. There is no contraindication to surgery at this time. The benefit is great in the risk is small. He is given medical clearance for both procedures. Problem 223608019 Lumbar radiculopathy, right (M54.16) Active confirmed He continues to have pain that comes from his lower lumbar spine and right paravertebral muscles that radiates into his right buttock. X-rays have shown degenerative disease. The pain is aggravated with walking more than 10 feet and lifting more than 10 pounds. He has been referred to [facility] in [facility] medicine for physical therapy injections imaging and evaluation for surgery. Problem 22915553 Acute diffuse otitis externa of both ears (H60.313) Active confirmed The left ear wa s primarily involved. The otic canalWas uninvolved. The tympanic membrane was normal. A prescription for Bactrim was given to him. Problem 39511420 Staphylococcus infection (B95.8) Active confirmed This seems [...] Provider Diagnosis Ashish Huertas III, MD [address] [place] [address] [place] [address] 08/02/2024 Ashish Huertas Infection of pelvis M86.9 ; Peripheral arterial disease I73.9 ; COPD (chronic obstructive pulmonary disease) J44.9 ; Lumbar radiculopathy, right M54.16 ; BPH (benign prostatic hyperplasia) N40.0 and Hypertension I10 Ashish Huertas III, MD [address] [place] [address] [place] [address] 08/15/2024 Ashish Huertas Infection of pelvis M86.9 ; Hypertension I10 ; BPH (benign prostatic hyperplasia) N40.0 ; COPD (chronic obstructive pulmonary disease) J44.9 ; Peripheral arterial disease I73.9 and Lumbar radiculopathy, right M54.16 Ashish Huertas III, MD [address] [place] [address] [place] [address] 10/28/2024 Ashish Huertas Hypertension I10 ; C OPD (chronic obstructive pulmonary disease) J44.9 ; BPH (benign prostatic hyperplasia) N40.0 ; Peripheral arterial disease I73.9 ; Tobacco dependence F17.200 ; Porphyria cutanea tarda E80.1 ; Lumbar radiculopathy, right M54.16 and Overweight E66.3 Ashish Huertas III, MD [address] [place] [address] [place] [address] 11/15/2024 Ashish Huertas Acute bronchitis due to other specified organisms J20.8 ; COPD (chronic obstructive pulmonary disease) J44.9 ; Tobacco dependence F17.200 ; Lumbar radiculopathy, right M54.16 ; Porphyria cutanea tarda E80.1 ; Hyperlipidemia E78.5 ; Hypertension I10 and Peripheral arterial disease I73.9 Ashish Huertas III, MD [address] [place] [address] [place] [address] 01/10/2025 Ashish Huertas Acute diffuse otitis externa of both ears H60.313 ; Lumbar radiculopathy, right M54.16 ; Hypertension I10 ; BPH (benign prostatic hyperplasia) N40.0 ; Peripheral arterial disease I73.9 ; Tobacco dependence F17.200 ; Porphyria cutanea tarda E80.1 and COPD (chronic obstructive pulmonary disease) J44.9 Ashish Huertas III, MD [address] [place] [address] [place] [address] 01/18/2025 Ashish Huertas Acute bronchitis due to other specified organisms J20.8 ; Hypertension I10 ; BPH (benign prostatic hyperplasia) N40.0 ; COPD (chronic obstructive pulmonary disease) J44.9 ; Peripheral arterial disease I73.9 and Lumbar radiculopathy, right M54.16 Ashish Huertas III, MD [address] [place] [address] [place] [address] 01/23/2025 Ashish Huertas Viral syndrome B34.9 ; COPD (chronic obstructive pulmonary disease) J44.9 ; Hypertension I10 ; BPH (benign prostatic hyperplasia) N40.0 ; Peripheral arterial disease I73.9 ; Tobacco dependence F17.200 ; Porphyria cutanea tarda E80.1 and Lumbar radiculopathy, right M54.16 Ashish Huertas III, MD [address] [place] [address] [place] [address] 02/14/2025 Ashish Huertas Staphylococcus infec tion B95.8 ; Hypertension I10 ; BPH (benign prostatic hyperplasia) N40.0 ; COPD (chronic obstructive pulmonary disease) J44.9 ; Peripheral arterial disease I73.9 ; Lumbar radiculopathy, right M54.16 ; Tobacco dependence F17.200 and Porphyria cutanea tarda E80.1 Ashish Huretas III, MD [address] [place] [address] [place] [address] 02/28/2025 Ashish Huertas BPH (benign prostati c hyperplasia) N40.0 ; Age-related incipient cataract of both eyes H25.093 ; Overweight E66.3 ; Hyperlipidemia E78.5 ; Ear infection H66.90 and COPD (chronic obstructive pulmonary disease) J44.9 Ashish Huertas III, MD [address] [place] [address] [place] [address] 06/07/2025 Ashish Huertas Tobacco dependence F17.200 ; Other hemochromatosis E83.118 ; COPD (chronic obstructive pulmonary disease) J44.9 ; Hypertension I10 ; BPH (benign prostatic hyperplasia) N40.0 and Pilonidal cyst L05.91 Ashish Huertas III, MD [address] [place] [address] [place] [address] 07/01/2024 Ashish Huertas III, MD [address] [place] [address] [place] [phone] 10/04/2024 Ashish Huertas Infection of pelvis M86.9 Ashish Huertas III, MD [address] [place] [address] [place] [address] 11/21/2024 Ashish Huertas III, MD [address] [place] [address] [place] [address] 11/21/2024 Ashish Huertas III, MD [address] [place] [address] [place] [address] 12/19/2024 Ashish Huertas III, MD [address] [place] [address] [place] [address] 01/24/2025 Ashish Huertas III, MD [address] [place] [address] [place] [address] 04/07/2025 Ashish Huertas Assessments Encounter Date Diagnosis [...] 10 pounds. He has been referred to [facility] in [facility] for physical therapy injections imaging and [...] 10 pounds. He has been referred to [facility] in [facility] for physical therapy injections imaging and evaluation [...] diagnosis of porphyria was made by a digitizer at [facility]. He affirms that if he [...] 10 pounds. He has been referred to [facility] in [facility] sports rehabilitation [facility] for physical therapy injections imaging and evaluation for surgery. 10/28/2024 Porphyria cutanea tarda (ICD-10 - E80.1) The diagnosis of porphyria was made by a digitizer at [facility]. He affirms that if he [...] 10 pounds. He has been referred to [facility] in [facility] spine and [facility] for physical therapy injections imaging and evaluation [...] 10 pounds. He has been referred to [facility] in [facility] spine and sports [facility] for physical therapy injections imaging and [...] diagnosis of porphyria was made by a digitizer at [facility]. He affirms that if he goes into direct sunlight. He will experience blisters and skin lesions. He is well versed in how to prevent this and has medications for his skin. 01/23/2025 Porphyria cutanea tarda (ICD-10 - E80.1) The diagnosis of porphyria was made by a digitizer at [facility]. He affirms that if he [...] diagnosis of porphyria was made by a digitizer at [facility]. He affirms that if he [...] Provider Name:Ashish Huertas , 09/06/2025 10:30:00 AM, [address] [place] [address] [address], [place], [address], Provider Name:Ashish Huertas , 10/31/2025 02:00:00 PM, [address] [place] [address] [address], [place], [address], Insurance Providers Payer Name Payer Address Payer Phone Subscriber Number Group Number Insured Name Patient Relationship to Insured Coverage Start Date Coverage End Date [facility] [address] [place], [place] [id number] Sid Landeros Self - patient is the insured [address] [place] [address] [phone] [id number] Sid Landeros Self - patient is the [...] Date(Month/Year) No history Arterial Bipass 05/2022 Colonoscopy, [facility], Dr. Ramos Fracture of 2 fingers Repair of pilonidal cyst Excision of lipoma, left triceps, age 8 Esophagogastricduodoscopy Femoral -popliteal arterial bypass @[facility] 05/2022 Hospitalization History Reason Date(Month/Year)
--- NOTE | 2025-07-25 09:00 | HO.ANESPROP2 ---
Documented by User: Makayla Baker NP 07/25/25 09:05 HPI - Anesthesia Eval Consult details Narrative: 64 yr old male for colonoscopy s/p cholecystectomy 06/30/25 with [facility] Pulmonary preop visit 06/15/[address] Lino: pt reported doing well, could walk around, up to 2 blocks without getting SOB. Minimal cough, no wheezing, no recent URI. Home sleep study neg for TEA, but + low sats 89-90%. *Deemed poor surgical risk, stated however his obstructive lung disease is fairly stable at this time. He can safely undergo procedure (cholecystectomy). Would need to be closely monitored for hypoxemia; would require O2 supp to keep O2 above 90%. Cardiac preop visit 06/20/[address] Fletcher: No documented CAD. Deemed intermediate cardiac risk for cholecystectomy procedure. PVD: h/o femoropopliteal bypass, on plavix, ASA Still smoking a few to 15-20 cigarettes daily PMFSH Active Problems Active Problems: All Active Problems (Updated 06/20/25 @ 16:23 by Carlos A Fletcher MD) S/P laparoscopic cholecystectomy (Acute) Gallbladder polyp (Acute) Personal history of colonic polyps (Acute) Hemorrhoids (Acute) Diverticulosis of colon (Acute) PVD (peripheral vascular disease) (Acute) Preoperative cardiovascular examination (Acute) Tingling of left upper extremity (Acute) Varicose veins of right lower extremity with inflammation (Acute) Erectile dysfunction (Acute) COPD (chronic obstructive pulmonary disease) (Acute) Nocturnal hypoxemia (Acute) Snoring (Acute) Excessive daytime sleepiness (Acute) Abnormal LFTs (Acute) Atherosclerotic cardiovascular disease (Acute) Bilateral carotid artery stenosis (Acute) HTN (hypertension) (Acute) Hyperlipidemia (Acute) PAD (peripheral artery disease) (Acute) Hereditary hemochromatosis (Acute) Allergic rhinitis (Acute) Nicotine dependence, cigarettes, uncomplicated (Acute) GERD (gastroesophageal reflux disease) (Acute) Tubular adenoma of colon (Acute) Porphyria cutanea tarda (Acute) Past Medical History Medical History (Updated 07/27/25 @ 10:15 by Edna Piña RN) Bilateral cataracts Nocturnal hypoxemia Snoring Excessive daytime sleepiness Bronchitis Abnormal LFTs ETOH abuse Hereditary hemochromatosis Atherosclerotic cardiovascular disease Bilateral carotid artery stenosis PAD (peripheral artery disease) Murmur HTN (hypertension) Hyperlipidemia COPD (chronic obstructive pulmonary disease) SOB (shortness of breath) Allergic rhinitis Nicotine dependence, cigarettes, uncomplicated GERD (gastroesophageal reflux disease) Tubular adenoma of colon Porphyria cutanea tarda Arthritis Family History Family History Father Diabetes Stroke Hypertension Mother Chronic mental illness Family/Other FH: mental illness Family history of problems with anesthesia: No Surgical History Surgical History (Updated 07/27/25 @ 10:14 by Edna Piña RN) Hx laparoscopic cholecystectomy (06/29/25) History of femoropopliteal bypass History of femoropopliteal bypass (11/02/23) S/P angiogram of extremity History of colonoscopy History of esophagogastroduodenoscopy History of lipoma History of skin graft History of removal of cyst History of Problems with Anesthesia: No Social History Social History Household Members: Spouse Housing: House Are you a primary healthcare science specialist to a significant other at home: No Do you presently have visiting nurse or other home services: No Alcohol intake: current Alcohol intake frequency: a few times a month Alcohol type: beer Patient Tobacco Use Status: Current everyday Tobacco user Tobacco use type: Cigarette Cigarette Packs Per Day: 1 Cigarettes Per Day: 20.0 Years Smoked: 35 e-Cigarette/Vaping Use: Never Used Second Hand Smoke Exposure: No Use of substances other than those prescribed or required for medical reasons: No Have you been hit, kicked, punched, or otherwise hurt by someone within the past year? 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 occupational exposures/hazards: No Cognitive needs: No Hearing needs: No Vision needs: Yes Meds Allergies Allergy/AdvReac Type Severity Reaction Status Date / Time doxycycline Allergy Intermediate Hives Verified 07/25/25 10:19 nabumetone AdvReac Mild green Verified 07/25/25 10:19 stools Exam Pertinent Lab Results Pertinent Lab Results: Laboratory Tests 04/06/25 06/14/25 06/29/25 09:03 14:05 11:15 WBC 5.6 RBC 4.37 L Hgb 14.5 Hct 39.6 L Plt Count 202 Sodium 136 Potassium 3.6 Chloride 103 Carbon Dioxide 25 BUN 4 L Creatinine 0.71 Assessment and Plan Final Anesthetic Review Family History of Problems with Anesthesia: No History of Problems with Anesthesia: No Documented by User: Yessica mSall MD 07/27/25 10:41 [facility] Past Medical History Medical History (Updated 07/27/25 @ 10:15 by Edna Piña, RN) Bilateral cataracts Nocturnal hypoxemia Snoring Excessive daytime sleepiness Bronchitis Abnormal LFTs ETOH abuse Hereditary hemochromatosis Atherosclerotic cardiovascular disease Bilateral carotid artery stenosis PAD (peripheral artery disease) Murmur HTN (hypertension) Hyperlipidemia COPD (chronic obstructive pulmonary disease) SOB (shortness of breath) Allergic rhinitis Nicotine dependence, cigarettes, uncomplicated GERD (gastroesophageal reflux disease) Tubular adenoma of colon Porphyria cutanea tarda Arthritis Family History Family History Father Diabetes Stroke Hypertension Mother Chronic mental illness Family/Other FH: mental illness Surgical History Surgical History (Updated 07/27/25 @ 10:14 by Edna Piña, TORIBIO) Hx laparoscopic cholecystectomy (06/29/25) History of femoropopliteal bypass History of femoropopliteal bypass (11/02/23) S/P angiogram of extremity History of colonoscopy History of esophagogastroduodenoscopy History of lipoma History of skin graft History of removal of cyst Social History Social History Household Members: Spouse Housing: House Are you a primary healthcare science specialist to a significant other at home: No Do you presently have visiting nurse or other home services: No Alcohol intake: current Alcohol intake frequency: a few times a month Alcohol type: beer Patient Tobacco Use Status: Current everyday Tobacco user Tobacco use type: Cigarette Cigarette Packs Per Day: 1 Cigarettes Per Day: 20.0 Years Smoked: 35 e-Cigarette/Vaping Use: Never Used Second Hand Smoke Exposure: No Use of substances other than those prescribed or required for medical reasons: No Have you been hit, kicked, punched, or otherwise hurt by someone within the past year? 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 occupational exposures/hazards: No Cognitive needs: No Hearing needs: No Vision needs: Yes Meds Allergies Allergy/AdvReac Type Severity Reaction Status Date / Time doxycycline Allergy Intermediate Hives Verified 07/25/25 10:19 nabumetone AdvReac Mild green Verified 07/25/25 10:19 stools Exam Airway Mallampati Class: II TM Dist: >3cm Neck ROM: Full Heart: rrr Lungs: right upper lobe inspiratory wheeze Assessment and Plan Assessment Anesthesia Assessment: Anesthesia Plan Discussed and Chart Reviewed Final Anesthetic Review NPO: Yes ASA Class: III Final Preanesthetic Review: No Changes in Pt Med Stat, Meds/Allgs Chart Reviewed and Consent Obtained/Reviewed Patient Risk: Intermediate Procedure Risk: Low Anesthetic Plan Anesthetic Plan: MAC: Disposition: Standard PACU
[2025-07-25 14:30] VITALS: BMI 21.5
[2025-07-27 10:07] VITALS: BMI 21.4
[2025-07-27 10:22] VITALS: BP 136/69; PULSE 72; RESP 16; TEMP 36.4; O2SAT 100
[2025-07-27] MEDS: Lactated Ringers 1,000 ML 100 ML IVCONT (10:38)
[2025-07-27 11:00] VITALS: PULSE 73; RESP 16; O2SAT 97
[2025-07-27] MEDS: Albuterol Sulfate (0.083%) 2.5 MG/3 ML VIAL.NEB INHALE (11:00)
--- NOTE | 2025-07-27 11:21 | MHC.SHP ---
Pre-Procedural Eval Section A - 24 Hr Update-Section A only Date of Service: 07/27/25 Section B - Complete if H&P > 30 days Chief Complaint: Personal history of colon polyps, unspecified Details of Present Illness: Abnormal LFTs ETOH abuse Hereditary hemochromatosis Atherosclerotic cardiovascular disease Bilateral carotid artery stenosis PAD (peripheral artery disease) Murmur HTN (hypertension) Hyperlipidemia COPD (chronic obstructive pulmonary disease) SOB (shortness of breath) Allergic rhinitis Nicotine dependence, cigarettes, uncomplicated GERD (gastroesophageal reflux disease) Tubular adenoma of colon Porphyria cutanea tarda Arthritis Surgical History History of femoropopliteal bypass History of femoropopliteal bypass (11/02/23) S/P angiogram of extremity History of colonoscopy History of esophagogastroduodenoscopy History of lipoma History of skin graft History of removal of cyst History of foot surgery Present Medications: see Short Stay Collaborative assessment Allergies: Allergies Allergy/AdvReac Type Severity Reaction Status Date / Time doxycycline Allergy Intermediate Hives Verified 07/25/25 10:19 nabumetone AdvReac Mild green Verified 07/25/25 10:19 stools Review of Systems Review of Systems Comment: Ten point ROS negative Exam Exam Comment: Gen appear: No acute distress HEENT: no icterus Chest: No overt resp distress Abd: soft, nontender, nondistended Psych: Stable affect, answering questions appropriately Neuro: A/Ox3 noted to move all extremities spontaneously Ext: no peripheral edema Plan Diagnosis/Plan: Unchanged I have reviewed the history and physical and performed a pertinent physical examination on my patient. No changes have occurred unless specified. Time Spent With Patient Time: Total time managing care of this patient today ____ minutes.
--- NOTE | 2025-07-27 12:19 | P.OPN-COLO_ITS ---
Colonoscopy Operative Note Operative Note Date of Service: 07/27/25 Narrative: Procedure: Colonoscopy Indication: Personal history of polyps Endoscopist: Wen Diaz MD Anesthesia Provider: Dr Yessica Evangelista Anesthesia type: MAC Instrument: Olympus [id number]-[id number] Consent: Indication, risks vs benefits, and alternatives were discussed with the patient who gave written informed consent to proceed. EKG, pulse, pulse oximetry and blood pressure were monitored throughout the procedure. Please see anesthesia flowsheet. Procedure: The patient was brought to the procedure room and placed in the left lateral decubitus position. IV medications were administered by the anesthesia provider in attendance. A digital rectal exam was performed which was normal. A distal attachment cap was affixed to the tip of the colonoscope which was then inserted through the anus and advanced through the colon to the cecum at 80 cm,and terminal ileum. Appendiceal orifice and ileocecal valve were identified. Mucosa was carefully examined under high definition white light as the instrument was slowly withdrawn in a retrograde panoramic fashion. Retroflexion was performed in rectum. The procedure was not difficult. There were no immediate obvious complications. The quality of the prep was BBPS: 3+3+2 = adequate Withdrawal time 34 minutes. Limitations: No limitations. Findings: Mucosa: Normal to cecum and terminal ileum. Previous tattoo was noted in the ascending colon across from ileocecal valve. No polyp was noted at that site. Protruding lesions: * 3 sessile polyp of size 4-5 mm in ascending colon. Cold snare polypectomy was performed. The polyp was completely removed and retrieved. * 1 flat laterally spreading polyp of size 20 mm was noted on cecal side of ileocecal valve, not encroaching on the opening of the valve. The polyp was lifted with Eleview. Hot snare polypectomy was performed. The polyp was completely removed and retrieved. x2 Resolution 360 Ultra endoclips were placed at the polypectomy site. * Large internal hemorrhoids without stigmata of recent bleeding. Excavated lesions: * Severe diverticulosis of left colon. Impression: 1. Previous tattoo in ascending colon 2. Total of 4 polyps removed (cold snare + hot snare EMR) 3. Diverticulosis 4. Internal hemorrhoids Recommendations: - Follow path results. - Repeat colonoscopy in 3 years due to the size of the polyp. - Resume clopidogrel after 48h.
[2025-07-27 12:20] VITALS: BP 107/62; PULSE 71; RESP 15; TEMP 36.8; O2SAT 96
[2025-07-27 12:35] VITALS: BP 117/66; PULSE 65; RESP 16; TEMP 36.6; O2SAT 100
== END 2025-07-27 13:14 | disposition home or self-care (01) ==
PROVIDERS: PCP Internal Medicine Medical Oncology; Visit Provider Internal Medicine
PROC: 0DJD8ZZ Inspection of Lower Intestinal Tract, Via Natural or Artificial Opening Endoscopic (ICD-10-PCS; CPT 45378; principal; 2025-07-27 11:40)
DX: Z12.11 Encounter for screening for malignant neoplasm of colon (principal); Z86.0101 Personal history of adenomatous and serrated colon polyps; D12.2 Benign neoplasm of ascending colon; D12.0 Benign neoplasm of cecum; K57.30 Diverticulosis of large intestine without perforation or abscess without bleeding
CPT/HCPCS: 45385; 45381; 88305; 94640; J2371; J2704

== ENCOUNTER → 2025-07-27 08:52 | Outpatient (BNV) | payer BC, OTHER, SELFPAY | PROVIDERS: PCP Internal Medicine Medical Oncology; Visit Provider Internal Medicine | DX: Z12.11 Encounter for screening for malignant neoplasm of colon (principal); Z86.0100 Personal history of colon polyps, unspecified; D12.2 Benign neoplasm of ascending colon; D12.0 Benign neoplasm of cecum; K57.90 Diverticulosis of intestine, part unspecified, without perforation or abscess without bleeding; K64.8 Other hemorrhoids | CPT/HCPCS: 45381; 45385 ==